=== PATIENT | female | born 1935 | race Caucasian/White ===

== ENCOUNTER → 2016-09-22 | Outpatient (CLI) | payer OTHER ==
[2016-09-22 14:43] LABS: COMPLETE YES; EOS % 3.5 %; HEMATOCRIT 39.8 % (37-47); IG% 0.5 %; LYMPH % 30.9 %; LYMPH ABS # 1.92 K/uL (1.2-3.4); MEAN CELL VOLUME 86.9 fL (80-100); MEAN CORPUSCULAR HEMOGLOBIN 28.2 pg (25-34); MEAN CORPUSCULAR HGB CONC 32.4 g/dl (32-36); MEAN PLATELET VOLUME 11.8 fL (7.4-10.4); MONO % 11.1 %; PLATELET COUNT 167 K/uL (130-400); RED BLOOD COUNT 4.58 M/uL (4.2-5.4); WHITE BLOOD COUNT 6.22 K/uL (4.8-10.8)
[2016-09-22 15:48] LABS: ESTIMATED AVERAGE GLUCOSE 151 mg/dl; HA1C FLAG Normal (Normal)
[2016-09-22 16:38] LABS: ALB/GLOB RATIO 1.2 (0.9-2); ALKALINE PHOSPHATASE 88 U/L (45-117); ALT/SGPT 20 U/L (12-78); AST/SGOT 14 U/L (15-37); BLOOD UREA NITROGEN 15 mg/dl (7-18); BUN/CREATININE RATIO 20.1 (10-20); CALCIUM 9.1 mg/dl (8.5-10.1); CARBON DIOXIDE 28 mmol/L (21-32); CHLORIDE 110 mmol/L (98-107); CHOLESTEROL 119 mg/dl (0-200); CHOLESTEROL/HDL RATIO 2.4; CREATININE 0.73 mg/dl (0.60-1.20); GLUCOSE 142 mg/dl (70-99); HDL CHOLESTEROL 49 mg/dl; LDL CHOLESTEROL CALCULATED 60 mg/dl; POTASSIUM 4.4 mmol/L (3.5-5.1); SODIUM 144 mmol/L (136-145); TRIGLYCERIDES 50 mg/dl (0-150); VERY LOW DENSITY LIPOPROT CALC 10 mg/dl
== END | disposition home or self-care (01) ==
LOC: C.LABSPEC 14:10
PROVIDERS: ATTEND Family Medicine
DX: E11.9 Type 2 diabetes mellitus without complications (principal); I10 Essential (primary) hypertension; E78.2 Mixed hyperlipidemia

== ENCOUNTER → 2016-12-22 | Outpatient (CLI) | payer OTHER ==
[2016-12-22 13:14] LABS: COMPLETE YES; EOS % 3.5 %; IG% 0.2 %; LYMPH % 30.6 %; LYMPH ABS # 1.91 K/uL (1.2-3.4); MEAN CELL VOLUME 86.9 fL (80-100); MEAN CORPUSCULAR HEMOGLOBIN 28.6 pg (25-34); MEAN CORPUSCULAR HGB CONC 32.9 g/dl (32-36); MEAN PLATELET VOLUME 11.7 fL (7.4-10.4); MONO % 9.8 %; NEUT % 55.9 %; PLATELET COUNT 157 K/uL (130-400); RED BLOOD COUNT 4.72 M/uL (4.2-5.4); WHITE BLOOD COUNT 6.25 K/uL (4.8-10.8)
[2016-12-22 13:26] LABS: ALT/SGPT 21 U/L (12-78); AST/SGOT 17 U/L (15-37); BLOOD UREA NITROGEN 18 mg/dl (7-18); BUN/CREATININE RATIO 24.2 (10-20); CALCIUM 9.2 mg/dl (8.5-10.1); CARBON DIOXIDE 29 mmol/L (21-32); CHLORIDE 110 mmol/L (98-107); CREATININE 0.76 mg/dl (0.60-1.20); GLUCOSE 146 mg/dl (70-99); POTASSIUM 4.3 mmol/L (3.5-5.1); SODIUM 144 mmol/L (136-145)
[2016-12-22 13:28] LABS: ALB/GLOB RATIO 1.1 (0.9-2); ALKALINE PHOSPHATASE 81 U/L (45-117); CHOLESTEROL 113 mg/dl (0-200); CHOLESTEROL/HDL RATIO 2.4; HDL CHOLESTEROL 48 mg/dl; LDL CHOLESTEROL CALCULATED 53 mg/dl; TRIGLYCERIDES 61 mg/dl (0-150); VERY LOW DENSITY LIPOPROT CALC 12 mg/dl
[2016-12-22 13:52] LABS: ESTIMATED AVERAGE GLUCOSE 154 mg/dl; HA1C FLAG Normal (Normal)
== END | disposition home or self-care (01) ==
LOC: C.LABSPEC 12:54
PROVIDERS: ATTEND Family Medicine
DX: E11.9 Type 2 diabetes mellitus without complications (principal); E78.2 Mixed hyperlipidemia; I10 Essential (primary) hypertension

== ENCOUNTER → 2017-03-21 | Outpatient (CLI) | payer OTHER ==
[2017-03-21 14:42] LABS: BASO % 0.2 %; BASO ABS # 0.01 K/uL (0-0.2); COMPLETE YES; EOS % 4.3 %; HEMATOCRIT 40.1 % (37-47); IG% 0.2 %; LYMPH % 32.5 %; LYMPH ABS # 1.73 K/uL (1.2-3.4); MEAN CELL VOLUME 87.6 fL (80-100); MEAN CORPUSCULAR HEMOGLOBIN 28.2 pg (25-34); MEAN CORPUSCULAR HGB CONC 32.2 g/dl (32-36); MEAN PLATELET VOLUME 11.5 fL (7.4-10.4); MONO % 8.8 %; PLATELET COUNT 148 K/uL (130-400); RED BLOOD COUNT 4.58 M/uL (4.2-5.4); WHITE BLOOD COUNT 5.32 K/uL (4.8-10.8)
[2017-03-21 14:53] LABS: ALT/SGPT 18 U/L (12-78); AST/SGOT 12 U/L (15-37); BLOOD UREA NITROGEN 18 mg/dl (7-18); BUN/CREATININE RATIO 22.1 (10-20); CALCIUM 9.3 mg/dl (8.5-10.1); CARBON DIOXIDE 25 mmol/L (21-32); CHLORIDE 111 mmol/L (98-107); GLUCOSE 128 mg/dl (70-99); POTASSIUM 4.1 mmol/L (3.5-5.1); SODIUM 143 mmol/L (136-145)
[2017-03-21 14:55] LABS: ALB/GLOB RATIO 1.1 (0.9-2); ALKALINE PHOSPHATASE 73 U/L (45-117)
[2017-03-22 06:38] LABS: ESTIMATED AVERAGE GLUCOSE 154 mg/dl; HA1C FLAG Normal (Normal)
== END | disposition home or self-care (01) ==
LOC: C.LABSPEC 13:56
PROVIDERS: ATTEND Family Medicine
DX: E11.9 Type 2 diabetes mellitus without complications (principal); E78.2 Mixed hyperlipidemia; I10 Essential (primary) hypertension

== ENCOUNTER → 2017-04-28 | Outpatient (CLI) | payer OTHER ==
[2017-04-28 14:04] LABS: COMPLETE YES; EOS % 3.7 %; HEMATOCRIT 39.2 % (37-47); IG% 0.2 %; LYMPH % 30.8 %; LYMPH ABS # 1.73 K/uL (1.2-3.4); MEAN CELL VOLUME 87.3 fL (80-100); MEAN CORPUSCULAR HEMOGLOBIN 28.7 pg (25-34); MEAN CORPUSCULAR HGB CONC 32.9 g/dl (32-36); MEAN PLATELET VOLUME 11.7 fL (7.4-10.4); MONO % 10.5 %; NEUT % 54.8 %; PLATELET COUNT 142 K/uL (130-400); RED BLOOD COUNT 4.49 M/uL (4.2-5.4); WHITE BLOOD COUNT 5.62 K/uL (4.8-10.8)
[2017-04-28 14:14] LABS: ESTIMATED AVERAGE GLUCOSE 154 mg/dl; HA1C FLAG Normal (Normal)
[2017-04-28 14:29] LABS: ALT/SGPT 21 U/L (12-78); AST/SGOT 13 U/L (15-37); BLOOD UREA NITROGEN 20 mg/dl (7-18); BUN/CREATININE RATIO 23.3 (10-20); CALCIUM 9.6 mg/dl (8.5-10.1); CARBON DIOXIDE 30 mmol/L (21-32); CHLORIDE 106 mmol/L (98-107); CREATININE 0.85 mg/dl (0.60-1.20); GLUCOSE 149 mg/dl (70-99); POTASSIUM 4.2 mmol/L (3.5-5.1); SODIUM 141 mmol/L (136-145)
[2017-04-28 14:31] LABS: ALB/GLOB RATIO 1.1 (0.9-2); ALKALINE PHOSPHATASE 85 U/L (45-117)
== END | disposition home or self-care (01) ==
LOC: C.LABSPEC 13:34
PROVIDERS: ATTEND Family Medicine
DX: E11.9 Type 2 diabetes mellitus without complications (principal)

== ENCOUNTER → 2017-05-09 | Outpatient (CLI) | payer OTHER ==
[2017-05-09 18:24] LABS: ALT/SGPT 20 U/L (12-78); BLOOD UREA NITROGEN 19 mg/dl (7-18); CALCIUM 9.5 mg/dl (8.5-10.1); CARBON DIOXIDE 29 mmol/L (21-32); CHLORIDE 109 mmol/L (98-107); CREATININE 0.84 mg/dl (0.60-1.20); GLUCOSE 75 mg/dl (70-99); POTASSIUM 3.7 mmol/L (3.5-5.1); SODIUM 143 mmol/L (136-145)
[2017-05-09 18:30] LABS: ALB/GLOB RATIO 1.1 (0.9-2); ALKALINE PHOSPHATASE 90 U/L (45-117); AST/SGOT 17 U/L (15-37)
== END | disposition home or self-care (01) ==
LOC: C.LABSPEC 17:44
PROVIDERS: ATTEND Family Medicine
DX: R60.0 Localized edema (principal)

== ENCOUNTER → 2017-05-12 | Outpatient (CLI) | payer OTHER ==
--- NOTE | 2017-05-13 08:10 | ECHOCARDIOGRAM REPORT ---
*NOTICE TO RECEIVING REPUBLICAN AGENCY This information is strictly Confidential and protected under [place] law. [place] law prohibits you from making any further disclosure of this information unless further disclosure is expressly permitted by the written consent of the person to whom it pertains or is authorized by law. A general authorization for the release of medical or other information is not sufficient for this purpose. Hospital accepts no responsibility if the information is made available to any other person, INCLUDING THE PATIENT. Interpretation Summary * Name: MING YADAV Study Date: 05/12/2017 12:24 PM BP: 149/69 mmHg * Patient Location: [facility] HR: 56 * : 1935 (M/d/yyyy) Gender: Female Height: 68 in * Age: 82 yrs Ethnicity: [place] Weight: 179 lb * Ordering Physician: Isrrael Bolivar * Referring Physician: Isrrael Bolivar (BALA [id number]) * Performed By: Neena Zapien * * Reason For Study: SOB, LOCALIZED EDEMA * BSA: 1.9 m2 * -- Conclusions -- * 1. Mildly dilated left ventricle with normal systolic function. EF 55-60%. Akinesis of the inferior base. Inferolateral wall appears hypokinetic to akinetic. Mild concentric left ventricular hypertrophy. Type 1 diastolic dysfunction. * 2. The left atrium is moderately dilated. * 3. Sclerotic aortic valve without significant stenosis. * 4. Normal estimated right ventricular systolic pressure; 20 mmHg. * 5. No prior study available for comparison. Procedure Details * A complete two-dimensional transthoracic echocardiogram was performed (2D, M-mode, Doppler and color flow Doppler). * The study was technically difficult. Left Ventricle * Mildly dilated left ventricle with normal systolic function. EF 55-60%. Akinesis of the inferior base. Inferolateral wall appears hypokinetic to akinetic. Mild concentric left ventricular hypertrophy. Type 1 diastolic dysfunction. Right Ventricle * There is a pacemaker lead in the right ventricle. * The right ventricle is normal in size and function. * The right ventricular systolic function is normal as assessed by tricuspid annular plane systolic excursion (TAPSE) (normal >1.5 cm). Atria * The left atrium is moderately dilated. * Right atrial size is normal. * There is no evidence of atrial septal defect, but resolution does not allow assessment for a patent foramen ovale. Mitral Valve * There is mild mitral annular calcification. * There is no mitral valve stenosis. * Significant mitral regurgitation is absent. Tricuspid Valve * The tricuspid valve is not well visualized, but is grossly normal. * There is no tricuspid stenosis. * There is mild tricuspid regurgitation. Aortic Valve * Sclerotic aortic valve without significant stenosis. * No hemodynamically significant valvular aortic stenosis. * No aortic regurgitation is present. Pulmonic Valve * The pulmonary valve is inadequately visualized, but the Doppler data is adequate for interpretation. * There is no pulmonic valvular stenosis. * Trace pulmonic valvular regurgitation. Great Vessels * The aortic root is normal size. Pericardium/Pleural * There is no pericardial effusion. Great Vessels * Normal inferior vena cava size and collapsability with sniff indicates a normal right atrial pressure of 3 mmHg MMode 2D Measurements and Calculations IVSd 1.3 cm IVSs 1.5 cm LVIDd 5.3 cm LVIDs 3.7 cm LVPWd 1.2 cm LVPWs 1.5 cm IVS/LVPW 1.1 FS 30.1 % EDV(Teich) 133.7 ml ESV(Teich) 57.5 ml EF(Teich) 57.0 % EDV(cubed) 146.6 ml ESV(cubed) 50.0 ml EF(cubed) 65.9 % % IVS thick 12.6 % % LVPW thick 18.1 % LV mass(C)d 278.4 grams LV mass(C)dI 142.8 grams/m\S\2 LV mass(C)s 202.0 grams LV mass(C)sI 103.6 grams/m\S\2 SV(Teich) 76.2 ml SI(Teich) 39.1 ml/m\S\2 SV(cubed) 96.6 ml SI(cubed) 49.5 ml/m\S\2 Ao root diam 3.0 cm Ao root area 7.2 cm\S\2 ACS 1.1 cm LA dimension 4.7 cm asc Aorta Diam 3.3 cm LA/Ao 1.6 LVOT diam 2.1 cm LVOT area 3.3 cm\S\2 LVAd ap4 37.4 cm\S\2 LVLd ap4 8.2 cm EDV(MOD-sp4) 138.6 ml EDV(sp4-el) 145.3 ml LVAs ap4 21.1 cm\S\2 LVLs ap4 6.7 cm ESV(MOD-sp4) 57.1 ml ESV(sp4-el) 57.1 ml EF(MOD-sp4) 58.8 % EF(sp4-el) 60.7 % SV(MOD-sp4) 81.4 ml SI(MOD-sp4) 41.8 ml/m\S\2 SV(sp4-el) 88.2 ml SI(sp4-el) 45.2 ml/m\S\2 Doppler Measurements and Calculations MV E max сергей 75.0 cm/sec MV A max сергей 79.3 cm/sec MV E/A 0.95 MV dec time 0.33 sec Ao V2 max 179.8 cm/sec Ao max PG 12.9 mmHg Ao max PG (full) 8.6 mmHg Ao V2 mean 118.7 cm/sec Ao mean PG 6.7 mmHg Ao mean PG (full) 4.7 mmHg Ao V2 VTI 38.5 cm FABIENNE(I,A) 2.2 cm\S\2 FABIENNE(I,D) 2.2 cm\S\2 FABIENNE(V,A) 1.9 cm\S\2 FABIENNE(V,D) 1.9 cm\S\2 LV V1 max PG 4.4 mmHg LV V1 mean PG 2.1 mmHg LV V1 max 104.6 cm/sec LV V1 mean 65.4 cm/sec LV V1 VTI 25.1 cm SV(Ao) 277.3 ml SI(Ao) 142.2 ml/m\S\2 SV(LVOT) 83.9 ml SI(LVOT) 43.1 ml/m\S\2 PA V2 max 74.4 cm/sec PA max PG 2.2 mmHg TR max сергей 202.4 cm/sec RVSP(TR) 19.5 mmHg RAP systole 3.0 mmHg
== END | disposition home or self-care (01) ==
LOC: C.CPL 12:07
PROVIDERS: ATTEND Family Medicine
DX: R60.0 Localized edema (principal); R06.02 Shortness of breath

== ENCOUNTER → 2017-12-01 | Outpatient (CLI) | payer OTHER ==
[2017-12-01 18:41] LABS: BASO % 0.1 %; BASO ABS # 0.01 K/uL (0-0.2); EOS % 0.3 %; EOS ABS # 0.03 K/uL (0-0.5); HEMOGLOBIN 13.7 g/dL (12.0-16.0); IG# 0.02 K/uL (0.00-0.02); LYMPH % 10.3 %; LYMPH ABS # 1.08 K/uL (1.2-3.4); MEAN CELL VOLUME 86.6 fL (80-100); MEAN CORPUSCULAR HEMOGLOBIN 28.2 pg (25-34); MEAN CORPUSCULAR HGB CONC 32.6 g/dl (32-36); MONO % 8.8 %; MONO ABS # 0.93 K/uL (0.11-0.59); NEUT % 80.3 %; NEUT ABS # 8.44 K/uL (1.4-6.5); PLATELET COUNT 258 K/uL (130-400); RED CELL DISTRIBUTION WIDTH CV 13.4 % (11.5-14.5); RED CELL DISTRIBUTION WIDTH SD 42.7 fL (36.4-46.3); WHITE BLOOD COUNT 10.51 K/uL (4.8-10.8)
[2017-12-01 18:48] LABS: ALBUMIN 3.4 gm/dl (3.4-5.0); ALT/SGPT 17 U/L (12-78); AST/SGOT 12 U/L (15-37); BLOOD UREA NITROGEN 16 mg/dl (7-18); CALCIUM 9.8 mg/dl (8.5-10.1); CARBON DIOXIDE 26 mmol/L (21-32); CREATININE 0.86 mg/dl (0.60-1.20); GLUCOSE 186 mg/dl (70-99); SODIUM 138 mmol/L (136-145)
[2017-12-01 18:50] LABS: ALKALINE PHOSPHATASE 110 U/L (45-117); TOTAL PROTEIN 7.1 gm/dl (6.4-8.2)
[2017-12-01 19:54] LABS: INFLUENZA B ANTIGEN Neg for Influ B (NEG)
== END | disposition home or self-care (01) ==
LOC: C.LABSPEC 18:15
PROVIDERS: ATTEND Family Medicine
DX: R05 Cough (principal)

== ENCOUNTER → 2018-01-30 | Outpatient (CLI) | payer OTHER ==
[2018-01-30 13:34] LABS: BASO % 0.1 %; BASO ABS # 0.01 K/uL (0-0.2); EOS ABS # 0.28 K/uL (0-0.5); HEMATOCRIT 40.7 % (37-47); HEMOGLOBIN 13.3 g/dL (12.0-16.0); IG# 0.02 K/uL (0.00-0.02); LYMPH ABS # 1.87 K/uL (1.2-3.4); MEAN CELL VOLUME 86.8 fL (80-100); MEAN CORPUSCULAR HEMOGLOBIN 28.4 pg (25-34); MEAN CORPUSCULAR HGB CONC 32.7 g/dl (32-36); MEAN PLATELET VOLUME 11.7 fL (7.4-10.4); MONO % 8.4 %; MONO ABS # 0.58 K/uL (0.11-0.59); NEUT % 60.2 %; NEUT ABS # 4.16 K/uL (1.4-6.5); PLATELET COUNT 184 K/uL (130-400); RED CELL DISTRIBUTION WIDTH CV 14.1 % (11.5-14.5); RED CELL DISTRIBUTION WIDTH SD 44.5 fL (36.4-46.3); WHITE BLOOD COUNT 6.92 K/uL (4.8-10.8)
[2018-01-30 14:25] LABS: HEMOGLOBIN A1C 7.2 % (4.5-5.6)
[2018-01-30 19:01] LABS: BLOOD UREA NITROGEN 24 mg/dl (7-18); GLUCOSE 109 mg/dl (70-99)
[2018-01-30 19:02] LABS: ALBUMIN 3.5 gm/dl (3.4-5.0); ALKALINE PHOSPHATASE 84 U/L (45-117); ALT/SGPT 16 U/L (12-78); AST/SGOT 14 U/L (15-37); CALCIUM 9.1 mg/dl (8.5-10.1); CARBON DIOXIDE 31 mmol/L (21-32); CHOLESTEROL 129 mg/dl (0-200); LDL CHOLESTEROL CALCULATED 61 mg/dl; POTASSIUM 3.8 mmol/L (3.5-5.1); SODIUM 144 mmol/L (136-145); TOTAL PROTEIN 6.8 gm/dl (6.4-8.2)
== END | disposition home or self-care (01) ==
LOC: C.LABSPEC 12:39
PROVIDERS: ATTEND Family Medicine
DX: E11.9 Type 2 diabetes mellitus without complications (principal); E78.2 Mixed hyperlipidemia

== ENCOUNTER → 2018-05-02 | Outpatient (CLI) | payer OTHER ==
[2018-05-02 13:33] LABS: EOS % 2.9 %; EOS ABS # 0.21 K/uL (0-0.5); HEMATOCRIT 41.3 % (37-47); HEMOGLOBIN 13.4 g/dL (12.0-16.0); IG# 0.01 K/uL (0.00-0.02); LYMPH % 25.6 %; LYMPH ABS # 1.83 K/uL (1.2-3.4); MEAN CELL VOLUME 87.3 fL (80-100); MEAN CORPUSCULAR HEMOGLOBIN 28.3 pg (25-34); MEAN CORPUSCULAR HGB CONC 32.4 g/dl (32-36); MEAN PLATELET VOLUME 11.5 fL (7.4-10.4); MONO % 7.7 %; MONO ABS # 0.55 K/uL (0.11-0.59); NEUT % 63.7 %; NEUT ABS # 4.54 K/uL (1.4-6.5); PLATELET COUNT 147 K/uL (130-400); RED CELL DISTRIBUTION WIDTH CV 14.2 % (11.5-14.5); RED CELL DISTRIBUTION WIDTH SD 45.5 fL (36.4-46.3); WHITE BLOOD COUNT 7.14 K/uL (4.8-10.8)
[2018-05-02 13:46] LABS: HEMOGLOBIN A1C 7.1 % (4.5-5.6)
[2018-05-02 13:55] LABS: ALBUMIN 3.4 gm/dl (3.4-5.0); ALKALINE PHOSPHATASE 76 U/L (45-117); ALT/SGPT 18 U/L (12-78); AST/SGOT 16 U/L (15-37); BLOOD UREA NITROGEN 18 mg/dl (7-18); CALCIUM 9.3 mg/dl (8.5-10.1); CARBON DIOXIDE 26 mmol/L (21-32); CHOLESTEROL 95 mg/dl (0-200); CREATININE 0.79 mg/dl (0.60-1.20); GLUCOSE 151 mg/dl (70-99); LDL CHOLESTEROL CALCULATED 40 mg/dl; POTASSIUM 4.1 mmol/L (3.5-5.1); SODIUM 143 mmol/L (136-145); TOTAL PROTEIN 6.7 gm/dl (6.4-8.2)
== END | disposition home or self-care (01) ==
LOC: C.LABSPEC 13:05
PROVIDERS: ATTEND Family Medicine
DX: E11.9 Type 2 diabetes mellitus without complications (principal); I10 Essential (primary) hypertension; E78.2 Mixed hyperlipidemia

== ENCOUNTER 2023-07-31 19:31 | Inpatient (IN) ==
[2023-07-31 20:22] LABS: Basophils # (auto) 0.01 K/uL (0.00-0.20); Basophils % (auto) 0.1 %; Eosinophils # (auto) 0.04 K/uL (0.00-0.50); Eosinophils % (auto) 0.6 %; Hematocrit (blood only) 45.3 % (37.0-47.0); Hemoglobin 13.9 g/dl (12.0-16.0); Immature Granulocytes # (auto) 0.01 K/uL (0.01-0.20); Immature Granulocytes % (auto) 0.1 %; Lymphocytes # (auto) 1.41 K/uL (1.20-3.40); Lymphocytes % (auto) 20.8 %; Mean Corpuscular Hemoglobin 26.1 pg (25.0-34.0); Mean Corpuscular Hgb Conc 30.7 g/dL (32.0-36.0); Mean Corpuscular Volume 85.2 fL (80.0-100.0); Mean Platelet Volume 12.7 fL (9.4-12.4); Monocytes # (auto) 0.71 K/uL (0.11-0.59); Monocytes % (auto) 10.5 %; Neutrophils # (auto) 4.59 K/uL (1.40-6.50); Neutrophils % (auto) 67.9 %; Platelet Count 151 K/uL (130-400); RDW Coefficient of Variation 16.2 % (11.5-14.5); RDW Standard Deviation 49.5 fL (36.4-46.3); Red Blood Count 5.32 M/uL (4.20-5.40); White Blood Count 6.77 K/ul (4.8-10.8)
[2023-07-31 20:37] LABS: Alanine Aminotransferase 11 U/L (7-52); Albumin Globulin Ratio 1.4 (0.9-2); Alkaline Phosphatase 70 U/L (34-104); Anion Gap 7 (3-11); Aspartate Aminotransferase 15 U/L (13-39); BUN Creatinine Ratio 17.2 (10-20); Bilirubin,Total 0.8 mg/dl (0.2-1.0); Blood Urea Nitrogen 20 mg/dl (6-23); Calcium 9.6 mg/dl (8.6-10.3); Carbon Dioxide 31 mmol/L (21-32); Chloride 100 mmol/L (98-107); Est GFR (African American) 49.4 ml/min; Est GFR (Non-African American) 42.6 ml/min; Globulin 2.8 gm/dl (2.5-4.0); Glucose 216 mg/dl (70-99(Fasting)); Sodium 138 mmol/L (136-145); Total Protein 6.8 gm/dl (6.0-8.3); Troponin I High Sensitivity 16.8 pg/ml (0-14)
[2023-07-31 20:47] LABS: INR 1.2 (0.9-1.1); Influenza A virus by PCR Negative (Neg); Influenza B virus by PCR Negative (Neg); Partial Thromboplastin Time 29.6 Seconds (21.0-31.0); Prothrombin Time 13.4 Seconds (9.0-12.0); RSV by PCR Negative (Neg); SARS CoV2 RNA(COVID-19) Ceph NEGATIVE (Negative)
[2023-07-31] MEDS ORDERED: KETOROLAC TROMETHAMINE 15 MG/ML VIAL IV ONE (23:25)
[2023-07-31] MEDS ORDERED: OPTIRAY 320 500ml IV ONE (23:54)
--- NOTE | 2023-08-01 01:19 | Emergency Department Note ---
Impression & Plan CHF (congestive heart failure), Pleural effusion ED Provider Note NAME: MING YADAV AGE: 88 SEX: F : 1935 ARRIVES VIA: Walk-In INFORMANT: Patient, ED PROVIDER(S): Raleigh Fried MD CHIEF COMPLAINT: Chest pain HPI: This is an 88-year-old female with history of CAD, pacemaker placement presenting for chest pain. Patient states that she became chest pain Tuesday. Is left-sided, sharp sensation, constant. Goes into her left shoulder. She has was a [place] this Tuesday, 2 days ago was discharged home after a negative EKG, blood work and chest x-ray. Patient then presented here due to persistent pain. Patient notes some slight shortness of breath. Otherwise no nausea or vomiting. No fevers or chills. ROS: See above HPI for pertinent positives & negatives. A total of 10 systems reviewed and were otherwise negative. PAST MEDICAL HISTORY: See Below PAST SURGICAL HISTORY: See Below FAMILY HISTORY: See Below SOCIAL HISTORY: See Below HOME MEDICATIONS: See Below ALLERGIES: See Below VITALS: See Below PHYSICAL EXAMINATION: General: resting comfortably in no acute distress Head: Normocephalic and atraumatic Eyes: Normal inspection, extraocular muscles intact, no conjunctival pallor Ear, nose, throat: Normal external exam Neck: Normal range of motion Respiratory: Patient is in no respiratory distress, lungs clear to auscultation bilaterally Cardiovascular: RRR without murmur appreciated GI: soft, nontender, no guarding or rebound Neuro: The patient awake and alert, appropriately conversive,no focal decifits Skin: Warm, dry, and intact MEDICAL DECISION MAKING: This is an 88-year-old female with history of CAD, pacemaker, A-fib presenting for chest pain. Left-sided chest pain, constant, possibly pleuritic, sharp. Will get ACS versus PE rule out. Patient's troponin is already elevated at triage. Patient has noted persistent chest pains, somewhat pleuritic, and she is borderline hypoxic will do to rule out PE with CTA chest. We will add on BNP as well. Patient CT chest reveals a large pleural effusion which could explain patient's hypoxia. Will admit for large pleural effusion well as further chest pain work- up. Patient did take her aspirin earlier this afternoon. Triage Nursing notes reviewed. Prior medical records reviewed Vital Signs: reviewed and remarkable for no significant abnormalities Differential diagnosis: PE, ACS, CHF, dissection ER treatment provided: See below Diagnostics interpreted by me: ECG: ECG independently interpreted by me with atrial fibrillation, rate of 94, normal axis, normal QRS, normal QTc, no ST segment elevations consistent with STEMI criteria Cardiac Monitoring: An order was placed for continuous cardiac monitoring. The monitor shows a rate of 82 with atrial fibrillation rhythm Laboratory studies: As stated above and show below. Imaging studies: See below. Radiographic imaging was reviewed by myself Consultation(s): None ED COURSE: Procedures: None PDMP:reviewed and no issues Critical Care: None Past Med/Surg History Social History Smoking Status: Never smoker Hx Alcohol Use: No Hx Substance Use: No Preferred Language: Frisian Communication Ability: Effective Beliefs That Will Affect Care: None Current Living Situation: Alone Feels Safe at Home: Yes Assistive Devices: Denture - Upper, Denture - Lower and Glasses Allergies Allergies Allergy/AdvReac Type Severity Reaction Status Date / Time No Known Allergies Allergy Verified 07/31/23 23:42 Home Meds Home Medications Medication Instructions Recorded Confirmed apixaban 5 mg tablet (Eliquis) 5 mg BID 03/18/20 07/31/23 atorvastatin 40 mg tablet (Lipitor) 40 mg PO HS 03/18/20 07/31/23 glipizide 2.5 mg tablet, extended 2.5 mg PO BID 03/18/20 07/31/23 release 24 hr nitroglycerin 0.4 mg sublingual 0.4 mg sublingual DIRECTED PRN 03/18/20 07/31/23 tablet (Nitrostat) Chest Pain torsemide 20 mg tablet 40 mg PO DAILY 03/18/20 07/31/23 alendronate 70 mg tablet 70 mg PO WK 07/31/23 07/31/23 colchicine 0.6 mg tablet 0.6 mg PO DAILY 07/31/23 07/31/23 empagliflozin 25 mg tablet 25 mg PO DAILY 07/31/23 07/31/23 (Jardiance) metoprolol succinate 25 mg 12.5 mg PO DAILY 07/31/23 07/31/23 tablet,extended release 24 hr omeprazole 20 mg capsule,delayed 20 mg PO DAILY 07/31/23 07/31/23 release pregabalin 150 mg capsule 150 mg PO BID 07/31/23 07/31/23 Results & Data (ED) Vital Signs Vital Signs - 24 hr 07/31/23 19:35 07/31/23 22:31 07/31/23 22:31 Temperature 36.8 C Temperature Source Temporal Artery Scan Pulse Rate 97 H Pulse Rate [Apical] 99 H Pulse Rhythm Regular Pulse Strength Normal Respiratory Rate 20 18 Respiratory Effort / Characteristics Non-Labored Spontaneous Respiratory Depth Normal Normal Blood Pressure 107/73 Blood Pressure [Right Arm] 124/75 Blood Pressure Mean 84 Blood Pressure Mean [Right Arm] 91 Blood Pressure Position Right Lateral Pulse Oximetry 94 92 Oxygen Delivery Method Room Air Room Air Room Air Oxygen Flow Rate Sepsis Recent Fever Within 48 Hours No Sepsis New/Unexplained Change in Mental Status N/A Sepsis Action Taken by Nursing No Action Required 07/31/23 22:32 07/31/23 22:33 07/31/23 22:39 Temperature Temperature Source Pulse Rate 97 H Pulse Rate [Apical] Pulse Rhythm Pulse Strength Respiratory Rate Respiratory Effort / Characteristics Respiratory Depth Blood Pressure Blood Pressure [Right Arm] Blood Pressure Mean Blood Pressure Mean [Right Arm] Blood Pressure Position Pulse Oximetry 92 Oxygen Delivery Method Room Air Room Air Oxygen Flow Rate Sepsis Recent Fever Within 48 Hours Sepsis New/Unexplained Change in Mental Status Sepsis Action Taken by Nursing 07/31/23 23:30 07/31/23 23:30 07/31/23 23:53 Temperature Temperature Source Pulse Rate 91 H 96 H Pulse Rate [Apical] Pulse Rhythm Pulse Strength Respiratory Rate 26 H 26 H Respiratory Effort / Characteristics Respiratory Depth Blood Pressure 108/79 Blood Pressure [Right Arm] Blood Pressure Mean 93 Blood Pressure Mean [Right Arm] Blood Pressure Position Pulse Oximetry 91 86 L Oxygen Delivery Method Room Air Room Air Oxygen Flow Rate Sepsis Recent Fever Within 48 Hours Sepsis New/Unexplained Change in Mental Status Sepsis Action Taken by Nursing 07/31/23 23:53 07/31/23 23:56 08/01/23 00:00 Temperature Temperature Source Pulse Rate Pulse Rate [Apical] Pulse Rhythm Pulse Strength Respiratory Rate Respiratory Effort / Characteristics Respiratory Depth Blood Pressure 130/93 130/105 H Blood Pressure [Right Arm] Blood Pressure Mean 102 108 Blood Pressure Mean [Right Arm] Blood Pressure Position Pulse Oximetry 95 Oxygen Delivery Method Nasal Cannula Oxygen Flow Rate 2 Sepsis Recent Fever Within 48 Hours Sepsis New/Unexplained Change in Mental Status Sepsis Action Taken by Nursing 08/01/23 00:30 08/01/23 00:30 08/01/23 01:00 Temperature Temperature Source Pulse Rate 95 H 91 H Pulse Rate [Apical] Pulse Rhythm Pulse Strength Respiratory Rate 23 23 Respiratory Effort / Characteristics Respiratory Depth Blood Pressure 109/81 Blood Pressure [Right Arm] Blood Pressure Mean 87 Blood Pressure Mean [Right Arm] Blood Pressure Position Pulse Oximetry 96 96 Oxygen Delivery Method Nasal Cannula Oxygen Flow Rate 2 Sepsis Recent Fever Within 48 Hours Sepsis New/Unexplained Change in Mental Status Sepsis Action Taken by Nursing 08/01/23 01:00 08/01/23 01:29 08/01/23 01:30 Temperature Temperature Source Pulse Rate 87 Pulse Rate [Apical] Pulse Rhythm Pulse Strength Respiratory Rate 19 Respiratory Effort / Characteristics Respiratory Depth Blood Pressure 117/61 130/61 Blood Pressure [Right Arm] Blood Pressure Mean 80 103 Blood Pressure Mean [Right Arm] Blood Pressure Position Pulse Oximetry 98 Oxygen Delivery Method Nasal Cannula Oxygen Flow Rate 2 Sepsis Recent Fever Within 48 Hours Sepsis New/Unexplained Change in Mental Status Sepsis Action Taken by Nursing 08/01/23 01:35 08/01/23 02:00 08/01/23 02:00 Temperature Temperature Source Pulse Rate 99 H 90 Pulse Rate [Apical] Pulse Rhythm Pulse Strength Respiratory Rate 22 24 Respiratory Effort / Characteristics Respiratory Depth Blood Pressure 112/71 Blood Pressure [Right Arm] Blood Pressure Mean 76 Blood Pressure Mean [Right Arm] Blood Pressure Position Pulse Oximetry 96 Oxygen Delivery Method Nasal Cannula Oxygen Flow Rate 2 Sepsis Recent Fever Within 48 Hours Sepsis New/Unexplained Change in Mental Status Sepsis Action Taken by Nursing 08/01/23 02:30 08/01/23 02:30 08/01/23 02:44 Temperature Temperature Source Pulse Rate 90 92 H Pulse Rate [Apical] Pulse Rhythm Pulse Strength Respiratory Rate 26 H Respiratory Effort / Characteristics Respiratory Depth Blood Pressure 117/85 Blood Pressure [Right Arm] Blood Pressure Mean 95 Blood Pressure Mean [Right Arm] Blood Pressure Position Pulse Oximetry 96 Oxygen Delivery Method Nasal Cannula Oxygen Flow Rate 2 Sepsis Recent Fever Within 48 Hours Sepsis New/Unexplained Change in Mental Status Sepsis Action Taken by Nursing 08/01/23 03:00 08/01/23 03:00 Temperature Temperature Source Pulse Rate 90 Pulse Rate [Apical] Pulse Rhythm Pulse Strength Respiratory Rate 24 Respiratory Effort / Characteristics Respiratory Depth Blood Pressure 111/87 Blood Pressure [Right Arm] Blood Pressure Mean 98 Blood Pressure Mean [Right Arm] Blood Pressure Position Pulse Oximetry 96 Oxygen Delivery Method Nasal Cannula Oxygen Flow Rate 2 Sepsis Recent Fever Within 48 Hours Sepsis New/Unexplained Change in Mental Status Sepsis Action Taken by Nursing Laboratory Data 08/01/23 06:41 08/01/23 06:41 Lab Results 07/31/23 07/31/23 Range/Units 19:56 23:35 WBC 6.77 (4.8-10.8) K/ul RBC 5.32 (4.20-5.40) M/uL Hgb 13.9 (12.0-16.0) g/dl Hct 45.3 (37.0-47.0) % MCV 85.2 (80.0-100.0) fL MCH 26.1 (25.0-34.0) pg MCHC 30.7 L (32.0-36.0) g/dL RDW Std Deviation 49.5 H (36.4-46.3) fL RDW Coeff of Jonathan 16.2 H (11.5-14.5) % Plt Count 151 (130-400) K/uL MPV 12.7 H (9.4-12.4) fL Immature Gran % (Auto) 0.1 % Neut % (Auto) 67.9 % Lymph % (Auto) 20.8 % [place] % (Auto) 10.5 % Eos % (Auto) 0.6 % Baso % (Auto) 0.1 % Neut # (Auto) 4.59 (1.40-6.50) K/uL Lymph # (Auto) 1.41 (1.20-3.40) K/uL [place] # (Auto) 0.71 H (0.11-0.59) K/uL Eos # (Auto) 0.04 (0.00-0.50) K/uL Baso # (Auto) 0.01 (0.00-0.20) K/uL Immature Gran # (Auto) 0.01 (0.01-0.20) K/uL PT 13.4 H (9.0-12.0) Seconds INR 1.2 H (0.9-1.1) APTT 29.6 (21.0-31.0) Seconds PTT Ratio 1.0 Sodium 138 (136-145) mmol/L Potassium 4.0 (3.5-5.1) mmol/L Chloride 100 (98-107) mmol/L Carbon Dioxide 31 (21-32) mmol/L Anion Gap 7 (3-11) BUN 20 (6-23) mg/dl Creatinine 1.16 (0.6-1.2) mg/dl Est Cr Clr Drug Dosing Not Reportable Est GFR ( Amer) 49.4 ml/min Est GFR (Non-Af Amer) 42.6 ml/min BUN/Creatinine Ratio 17.2 (10-20) Glucose 216 H (70-99(Fasting)) mg/dl Calcium 9.6 (8.6-10.3) mg/dl Total Bilirubin 0.8 (0.2-1.0) mg/dl AST 15 (13-39) U/L ALT 11 (7-52) U/L Alkaline Phosphatase 70 (34-104) U/L Troponin I High Sens 16.8 H (0-14) pg/ml B-Natriuretic Peptide 149 H (0-100) pg/ml Total Protein 6.8 (6.0-8.3) gm/dl Albumin 4.0 (3.4-5.0) gm/dl Globulin 2.8 (2.5-4.0) gm/dl Albumin/Globulin Ratio 1.4 (0.9-2) SARS-CoV-2 (PCR) NEGATIVE (Negative) Influenza Type A (PCR) Negative (Neg) Influenza Type B (PCR) Negative (Neg) RSV (RT-PCR) Negative (Neg) Administered Medications Apixaban (Apixaban 5 Mg Tablet) 5 mg PO BID [facility] Stop: 08/31/23 08:59 Last Admin: 08/01/23 09:34 Dose: 5 mg Documented By: AFUA Colchicine (Colchicine 0.6 Mg Tab) 0.6 mg PO DAILY [facility] Stop: 08/31/23 08:59 Last Admin: 08/01/23 09:35 Dose: 0.6 mg Documented By: AFUA Ceftriaxone Sodium 1,000 mg/ (Dextrose) 50 mls @ 100 mls/hr IV Q24H [facility]; Protocol Stop: 08/08/23 05:59 Last Infusion: 08/01/23 08:44 Dose: Infused Documented By: Admin: 08/01/23 06:51 Dose: 100 mls/hr Documented By: ROMMEL Insulin Aspart (Insulin Aspart Per Unit Charge) 0 units SC ACHS [facility] Stop: 08/31/23 07:29 Last Admin: 08/01/23 10:09 Dose: Not Given Documented By: AFUA Metoprolol Succinate (Metoprolol Succ 25mg Ext Rel Tab) 12.5 mg PO DAILY [facility] Stop: 08/31/23 08:59 Last Admin: 08/01/23 09:35 Dose: 12.5 mg Documented By: AFUA Pantoprazole Sodium (Pantoprazole 40 Mg Tab) 40 mg PO DAILY [facility] Stop: 08/31/23 08:59 Last Admin: 08/01/23 09:34 Dose: 40 mg Documented By: AFUA Pregabalin (Pregabalin 150 Mg Cap) 150 mg PO BID [facility] Stop: 08/31/23 08:59 Last Admin: 08/01/23 11:02 Dose: 150 mg Documented By: AFUA Discontinued Medications Furosemide (Furosemide 40 Mg/4 Ml Vial) 40 mg IV DAILY [facility] Stop: 08/31/23 08:59 Last Admin: 08/01/23 09:35 Dose: 40 mg Documented By: AFUA Ioversol (Optiray 320 500ml) 125 ml IV ONCE ONE Stop: 07/31/23 23:55 Last Admin: 07/31/23 23:54 Dose: 115 ml Documented By: BARBARA Ketorolac Tromethamine (Ketorolac Tromethamine 15 Mg/Ml Vial) 15 mg IV NOW ONE Stop: 07/31/23 23:26 Last Admin: 07/31/23 23:54 Dose: 15 mg Documented By: MICHELLE Imaging Data Radiologist's Impression: Chest X-Ray 07/31/23 19:38 XR chest 1V not portable CLINICAL HISTORY: Chest pain, nonspecific TECHNIQUE: Single frontal radiograph of the chest was obtained. Comparison: None available at the time of this dictation. FINDINGS: Pacemaker defibrillator is seen. Calcified aortic knob is seen. The lungs are clear. No evidence of pleural effusion or pneumothorax. IMPRESSION: No acute chest disease. ACT 112: Negative or not required by law. Electronically signed by: Jerry Salinas M.D. 08/01/2023 8:01 AM Discharge Plan Visit Data Chief Complaint: Chest Pain Stated Complaint: CHEST PAIN - HAS DEFIBRILATOR ED Provider: Raleigh Fried Discharge Problem: CHF (congestive heart failure), Pleural effusion Patient Disposition: Admitted As Inpatient Discharge Instructions Interventions: ED Discharge Assessment Last Done: 08/01/23 05:39
--- NOTE | 2023-08-01 01:33 | CT Scan Report ---
Exam(s): CTA CHEST IV Amt: 115 ml optiray 320 EXAM: CT Angiography Chest With Intravenous Contrast CLINICAL HISTORY: PE. TECHNIQUE: Axial computed tomographic angiography images of the chest with intravenous contrast. CTDI is 43.98 mGy and DLP is 632.65 mGy-cm. Automated exposure control was utilized for the study. A dose lowering technique was utilized adhering to the principles of ALARA. MIP reconstructed images were created and reviewed. COMPARISON: No relevant prior studies available. FINDINGS: Limitations: Evaluation is limited by respiratory artifact and accentuated kyphosis. Pulmonary arteries: Accounting for extensive respiratory artifact, there is no definite evidence for pulmonary embolism. The majority of the distal subsegmental pulmonary artery branches are of nondiagnostic quality. Aorta: No acute findings. No thoracic aortic aneurysm. Lungs: Unremarkable. No mass. No consolidation. Pleural space: Moderate left pleural effusion layering posteriorly, measuring up to approximately 5 cm. No loculation. Curvilinear subsegmental changes noted involving the left lung. There is pleural thickening laterally at the level of the major fissure which extends vertically, measuring up to 1 cm in thickness. No pneumothorax. Heart: Cardiomegaly. Reflux of contrast into the intrahepatic IVC and proximal hepatic veins is noted. Trace pericardial effusion. Bones/joints: No acute osseous abnormality. Prominent chronic anterior wedging from T5-T9 levels, resulting in accentuated kyphosis. Soft tissues: Unremarkable. Lymph nodes: Unremarkable. No enlarged lymph nodes. Tubes, lines and devices: Left subclavian approach single lead defibrillator noted in the region of the right ventricle with the tip external to the right ventricle approximately 1 cm. IMPRESSION: 1. Accounting for extensive respiratory artifact, there is no definite evidence for pulmonary embolism. The majority of the distal subsegmental pulmonary artery branches are of nondiagnostic quality. 2. Cardiomegaly. Reflux of contrast into the intrahepatic IVC and proximal hepatic veins is noted. This is a nonspecific finding and may be related to rate of contrast administration. However, this finding is also seen with right heart dysfunction. 3. Moderate left pleural effusion layering posteriorly, measuring up to approximately 5 cm. No loculation. 4. Subsegmental changes, most notable involving the left lung. No lobar consolidation. No pneumothorax. Electronically signed by: Yovany Blanc MD 08/01/23 01:30 AM
--- NOTE | 2023-08-01 04:56 | History & Physical Report ---
Date of Service August 01, 2023 Assessment & Plan (1) Chest pain: Plan: 88-year-old female with past medical significant for type 2 diabetes, hyperlipidemia, asthma, history of pneumonia, history of V-fib cardiac arrest in November 2010 cardiac arrest s/p single-chamber ICD. Had cardiac catheter no significant CAD seen, history of A-fib, history of chronic diastolic CHF, history of critical limb ischemia of left lower extremity with autologous bypass graft with rest pain, history of hypertension history of Takotsubo cardiomyopathy, history of acute viral pericarditis history of bilateral cellulitis of lower leg, history of acute thoracic back pain who lives alone, ambulates with cane comes with ongoing chest pain for last 4 days Chest pain EKG okay Mild elevation of troponin We will follow serial enzymes Follow echo Monitoring telemetry Keep n.p.o. 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 Mild bilateral wheezing on exam Has lower extremity edema As per epic she is on torsemide 20 mg daily but seems she was prescribed 40 mg daily recently Patient does not know how much dose she takes Placed on IV Lasix 40 mg daily for now Monitor daily weights and I's and O's Follow echo Cardiology consult for further recommendations Diabetes Hold home medications Insulin status scale We will monitor the blood sugar History of V-fib cardiac arrest S/p ICD History of A-fib On metoprolol succinate and Eliquis Hyperlipidemia On statin History of pericarditis On colchicine DVT prophylaxis On Eliquis Disposition Telemetry floor Full code History of Present Illness Chief Complaint: Chest pain Primary Care Provider: Isrrael Bolivar DO 88-year-old female with past medical significant for type 2 diabetes, hyperlipidemia, asthma, history of pneumonia, history of V-fib cardiac arrest in November 2010 s/p single-chamber ICD. Had cardiac catheter no significant CAD seen, history of A-fib, history of chronic diastolic CHF, history of critical limb ischemia of left lower extremity with autologous bypass graft , history of hypertension, history of Takotsubo cardiomyopathy, history of acute viral pericarditis history of bilateral cellulitis of lower leg, history of acute thoracic back pain who lives alone, ambulates with cane comes with ongoing chest pain for last 4 days. Patient says the pain is in the left chest. It was constant pain for last 4 days but now it eased up. She was in [place] [facility] yesterday for chest pain work-up was negative and was discharged comes in because pain is still present. Denies any headache. Vision is okay. No runny nose or sore throat. Has some cough. No fevers. Denies any shortness of breath. But oxygen is 86% room air, currently saturating ok with oxygen supplementation by nasal cannula. Denies nausea vomiting. No abdominal pain. Normal bowel and bladder movements. Hemodynamics stable. Past medical history. As mentioned above Past surgical history. Cardiac cath. ICD plantation. Pericardiocentesis, ca taracts, femoral-popliteal bypass left side , thrombectomy on the left side. Social history. . Lives alone. No smoking. No alcohol. No drug use. Family history. Brother had cancer. Sister had breast and lung cancer. Mother had heart disorder. Father had lung disorder. Allergies Allergy/AdvReac Type Severity Reaction Status Date / Time No Known Allergies Allergy Verified 07/31/23 23:42 Home Medications Medication Instructions Recorded Confirmed Type apixaban 5 mg tablet (Eliquis) 5 mg BID 03/18/20 07/31/23 History atorvastatin 40 mg tablet (Lipitor) 40 mg PO HS 03/18/20 07/31/23 History glipizide 2.5 mg tablet, extended 2.5 mg PO BID 03/18/20 07/31/23 History release 24 hr nitroglycerin 0.4 mg sublingual 0.4 mg sublingual DIRECTED PRN 03/18/20 07/31/23 History tablet (Nitrostat) Chest Pain torsemide 20 mg tablet 40 mg PO DAILY 03/18/20 07/31/23 History alendronate 70 mg tablet 70 mg PO WK 07/31/23 07/31/23 History colchicine 0.6 mg tablet 0.6 mg PO DAILY 07/31/23 07/31/23 History empagliflozin 25 mg tablet 25 mg PO DAILY 07/31/23 07/31/23 History (Jardiance) metoprolol succinate 25 mg 12.5 mg PO DAILY 07/31/23 07/31/23 History tablet,extended release 24 hr omeprazole 20 mg capsule,delayed 20 mg PO DAILY 07/31/23 07/31/23 History release pregabalin 150 mg capsule 150 mg PO BID 07/31/23 07/31/23 History Past Med/Surg History Social History Smoking Status: Never smoker Hx Alcohol Use: No Hx Substance Use: No Preferred Language: Indonesian Communication Ability: Effective Beliefs That Will Affect Care: None Current Living Situation: Alone Feels Safe at Home: Yes Assistive Devices: Denture - Upper, Denture - Lower and Glasses Review of Systems Review of Systems: All systems reviewed & are unremarkable except as noted in HPI & below Physical Exam Physical Exam: General- Not in distress. Head- atraumatic Eyes- PERRL. ENT- oropharynx clear Neck- supple, no JVD. Lungs- clear to auscultation b/l mild wheezing Heart- regular rhythm; no murmur, no gallop. Abdomen- normal bowel sounds, soft, nontender, no distension. Extremities- b/l lower extremity edema seen. superficial ulcer see on right thakur. Neuro- alert, oriented x 3; PERRL,; no facial palsy; no dysarthria; moves extremities Results & Data Results & Data Vital Signs (Past 12 Hours) Vital Signs Temp Pulse Pulse Resp BP BP Pulse Ox 08/01/23 03:00 111/87 08/01/23 03:00 90 24 96 08/01/23 02:44 92 H 08/01/23 02:30 90 26 H 96 08/01/23 02:30 117/85 08/01/23 02:00 90 24 96 08/01/23 02:00 112/71 08/01/23 01:35 99 H 22 08/01/23 01:30 130/61 08/01/23 01:29 87 19 98 08/01/23 01:00 117/61 08/01/23 01:00 91 H 23 96 08/01/23 00:30 109/81 08/01/23 00:30 95 H 23 96 08/01/23 00:00 130/105 H 07/31/23 23:56 95 07/31/23 23:53 130/93 07/31/23 23:53 96 H 26 H 86 L 07/31/23 23:30 91 H 26 H 91 07/31/23 23:30 108/79 07/31/23 22:39 97 H 07/31/23 22:33 92 07/31/23 22:32 07/31/23 22:31 99 H 18 124/75 92 07/31/23 22:31 07/31/23 19:35 36.8 C 97 H 20 107/73 94 O2 Del Method O2 Flow Rate 08/01/23 03:00 08/01/23 03:00 Nasal Cannula 2 08/01/23 02:44 08/01/23 02:30 Nasal Cannula 2 08/01/23 02:30 08/01/23 02:00 Nasal Cannula 2 08/01/23 02:00 08/01/23 01:35 08/01/23 01:30 08/01/23 01:29 Nasal Cannula 2 08/01/23 01:00 08/01/23 01:00 08/01/23 00:30 08/01/23 00:30 Nasal Cannula 2 08/01/23 00:00 07/31/23 23:56 Nasal Cannula 2 07/31/23 23:53 07/31/23 23:53 Room Air 07/31/23 23:30 Room Air 07/31/23 23:30 07/31/23 22:39 07/31/23 22:33 Room Air 07/31/23 22:32 Room Air 07/31/23 22:31 Room Air 07/31/23 22:31 Room Air 07/31/23 19:35 Room Air Diagnostic Findings Laboratory Results WBC 6.77 K/ul (4.8-10.8) 07/31/23 19:56 RBC 5.32 M/uL (4.20-5.40) 07/31/23 19:56 Hgb 13.9 g/dl (12.0-16.0) 07/31/23 19:56 Hct 45.3 % (37.0-47.0) 07/31/23 19:56 MCV 85.2 fL (80.0-100.0) 07/31/23 19:56 MCH 26.1 pg (25.0-34.0) 07/31/23 19:56 MCHC 30.7 g/dL (32.0-36.0) L 07/31/23 19:56 RDW Std Deviation 49.5 fL (36.4-46.3) H 07/31/23 19:56 RDW Coeff of Jonathan 16.2 % (11.5-14.5) H 07/31/23 19:56 Plt Count 151 K/uL (130-400) 07/31/23 19:56 MPV 12.7 fL (9.4-12.4) H 07/31/23 19:56 Immature Gran % (Auto) 0.1 % 07/31/23 19:56 Neut % (Auto) 67.9 % 07/31/23 19:56 Lymph % (Auto) 20.8 % 07/31/23 19:56 Sullivan % (Auto) 10.5 % 07/31/23 19:56 Eos % (Auto) 0.6 % 07/31/23 19:56 Baso % (Auto) 0.1 % 07/31/23 19:56 Neut # (Auto) 4.59 K/uL (1.40-6.50) 07/31/23 19:56 Lymph # (Auto) 1.41 K/uL (1.20-3.40) 07/31/23 19:56 Sullivan # (Auto) 0.71 K/uL (0.11-0.59) H 07/31/23 19:56 Eos # (Auto) 0.04 K/uL (0.00-0.50) 07/31/23 19:56 Baso # (Auto) 0.01 K/uL (0.00-0.20) 07/31/23 19:56 Immature Gran # (Auto) 0.01 K/uL (0.01-0.20) 07/31/23 19:56 PT 13.4 Seconds (9.0-12.0) H 07/31/23 19:56 INR 1.2 (0.9-1.1) H 07/31/23 19:56 APTT 29.6 Seconds (21.0-31.0) 07/31/23 19:56 PTT Ratio 1.0 07/31/23 19:56 Sodium 138 mmol/L (136-145) 07/31/23 19:56 Potassium 4.0 mmol/L (3.5-5.1) 07/31/23 19:56 Chloride 100 mmol/L (98-107) 07/31/23 19:56 Carbon Dioxide 31 mmol/L (21-32) 07/31/23 19:56 Anion Gap 7 (3-11) 07/31/23 19:56 BUN 20 mg/dl (6-23) 07/31/23 19:56 Creatinine 1.16 mg/dl (0.6-1.2) 07/31/23 19:56 Est Cr Clr Drug Dosing Not Reportable 07/31/23 19:56 Est GFR ( Amer) 49.4 ml/min 07/31/23 19:56 Est GFR (Non-Af Amer) 42.6 ml/min 07/31/23 19:56 BUN/Creatinine Ratio 17.2 (10-20) 07/31/23 19:56 Glucose 216 mg/dl (70-99(Fasting)) H 07/31/23 19:56 Calcium 9.6 mg/dl (8.6-10.3) 07/31/23 19:56 Total Bilirubin 0.8 mg/dl (0.2-1.0) 07/31/23 19:56 AST 15 U/L (13-39) 07/31/23 19:56 ALT 11 U/L (7-52) 07/31/23 19:56 Alkaline Phosphatase 70 U/L (34-104) 07/31/23 19:56 Troponin I High Sens 16.8 pg/ml (0-14) H 07/31/23 19:56 B-Natriuretic Peptide 149 pg/ml (0-100) H 07/31/23 23:35 Total Protein 6.8 gm/dl (6.0-8.3) 07/31/23 19:56 Albumin 4.0 gm/dl (3.4-5.0) 07/31/23 19:56 Globulin 2.8 gm/dl (2.5-4.0) 07/31/23 19:56 Albumin/Globulin Ratio 1.4 (0.9-2) 07/31/23 19:56 SARS-CoV-2 (PCR) NEGATIVE (Negative) 07/31/23 19:56 Influenza Type A (PCR) Negative (Neg) 07/31/23 19:56 Influenza Type B (PCR) Negative (Neg) 07/31/23 19:56 RSV (RT-PCR) Negative (Neg) 07/31/23 19:56 Impressions Chest CTA 07/31/23 23:20 Exam(s): CTA CHEST IV Amt: 115 ml optiray 320 EXAM: CT Angiography Chest With Intravenous Contrast CLINICAL HISTORY: PE. TECHNIQUE: Axial computed tomographic angiography images of the chest with intravenous contrast. CTDI is 43.98 mGy and DLP is 632.65 mGy-cm. Automated exposure control was utilized for the study. A dose lowering technique was utilized adhering to the principles of ALARA. MIP reconstructed images were created and reviewed. COMPARISON: No relevant prior studies available. FINDINGS: Limitations: Evaluation is limited by respiratory artifact and accentuated kyphosis. Pulmonary arteries: Accounting for extensive respiratory artifact, there is no definite evidence for pulmonary embolism. The majority of the distal subsegmental pulmonary artery branches are of nondiagnostic quality. Aorta: No acute findings. No thoracic aortic aneurysm. Lungs: Unremarkable. No mass. No consolidation. Pleural space: Moderate left pleural effusion layering posteriorly, measuring up to approximately 5 cm. No loculation. Curvilinear subsegmental changes noted involving the left lung. There is pleural thickening laterally at the level of the major fissure which extends vertically, measuring up to 1 cm in thickness. No pneumothorax. Heart: Cardiomegaly. Reflux of contrast into the intrahepatic IVC and proximal hepatic veins is noted. Trace pericardial effusion. Bones/joints: No acute osseous abnormality. Prominent chronic anterior wedging from T5-T9 levels, resulting in accentuated kyphosis. Soft tissues: Unremarkable. Lymph nodes: Unremarkable. No enlarged lymph nodes. Tubes, lines and devices: Left subclavian approach single lead defibrillator noted in the region of the right ventricle with the tip external to the right ventricle approximately 1 cm. IMPRESSION: 1. Accounting for extensive respiratory artifact, there is no definite evidence for pulmonary embolism. The majority of the distal subsegmental pulmonary artery branches are of nondiagnostic quality. 2. Cardiomegaly. Reflux of contrast into the intrahepatic IVC and proximal hepatic veins is noted. This is a nonspecific finding and may be related to rate of contrast administration. However, this finding is also seen with right heart dysfunction. 3. Moderate left pleural effusion layering posteriorly, measuring up to approximately 5 cm. No loculation. 4. Subsegmental changes, most notable involving the left lung. No lobar consolidation. No pneumothorax. Electronically signed by: Yovany Blanc MD 08/01/23 01:30 AM ECG Additional Comments: ECG. Atrial fibrillation rate of 94. Code Status & VTE Plan VTE Prophylaxis Plan VTE Prophylaxis will be ordered: Yes
[2023-08-01] MEDS ORDERED: ACETAMINOPHEN 325 MG TAB PO PRN (05:39)
[2023-08-01] MEDS ORDERED: CARBOHYDRATES FOR HYPOGLYCEMIA PO PRN (05:39)
[2023-08-01] MEDS ORDERED: NITROGLYCERIN SL 0.4 MG/TAB TAB SL PRN ×2 (05:39)
[2023-08-01] MEDS ORDERED: GLUCAGON FOR INJ 1 MG VIAL SQ PRN (05:39)
[2023-08-01] MEDS ORDERED: GLUCOSE 40% GEL 15 GM TUBE PO PRN (05:39)
[2023-08-01] MEDS ORDERED: POLYETHYLENE (MIRALAX) 17 GM PACK PO PRN (05:39)
[2023-08-01] MEDS ORDERED: GLUCOSE 10 TAB/TUBE PO PRN (05:39)
[2023-08-01] MEDS ORDERED: DEXTROSE 50% 50 ML SYRINGE IV PRN (05:39)
[2023-08-01] MEDS: cefTRIAXone SODIUM 1,000 MG in DEXTROSE 5 % MINI-B 50 ML IV SCH (06:51)
[2023-08-01 07:22] LABS: Basophils # (auto) 0.01 K/uL (0.00-0.20); Basophils % (auto) 0.1 %; Eosinophils # (auto) 0.03 K/uL (0.00-0.50); Eosinophils % (auto) 0.4 %; Hematocrit (blood only) 39.1 % (37.0-47.0); Hemoglobin 12.5 g/dl (12.0-16.0); Immature Granulocytes # (auto) 0.01 K/uL (0.01-0.20); Immature Granulocytes % (auto) 0.1 %; Lymphocytes % (auto) 25.5 %; Mean Corpuscular Hemoglobin 26.7 pg (25.0-34.0); Mean Corpuscular Volume 83.5 fL (80.0-100.0); Mean Platelet Volume 12.4 fL (9.4-12.4); Monocytes # (auto) 0.83 K/uL (0.11-0.59); Monocytes % (auto) 11.1 %; Neutrophils # (auto) 4.67 K/uL (1.40-6.50); Neutrophils % (auto) 62.8 %; Platelet Count 124 K/uL (130-400); RDW Coefficient of Variation 16.3 % (11.5-14.5); RDW Standard Deviation 49.5 fL (36.4-46.3); Red Blood Count 4.68 M/uL (4.20-5.40); White Blood Count 7.45 K/ul (4.8-10.8)
[2023-08-01 07:26] LABS: BUN Creatinine Ratio 19.4 (10-20); Calcium 8.9 mg/dl (8.6-10.3); Est GFR (African American) 53.8 ml/min; Est GFR (Non-African American) 46.4 ml/min; Magnesium 2.2 mg/dl (1.7-2.4)
[2023-08-01 07:34] LABS: Troponin I High Sensitivity 13.6 pg/ml (0-14)
--- NOTE | 2023-08-01 08:03 | XRay Report ---
XR chest 1V not portable CLINICAL HISTORY: Chest pain, nonspecific TECHNIQUE: Single frontal radiograph of the chest was obtained. Comparison: None available at the time of this dictation. FINDINGS: Pacemaker defibrillator is seen. Calcified aortic knob is seen. The lungs are clear. No evidence of p leural effusion or pneumothorax. IMPRESSION: No acute chest disease. ACT 112: Negative or not required by law. Electronically signed by: Jerry Salinas M.D. 08/01/2023 8:01 AM
--- NOTE | 2023-08-01 08:32 | Electrocardiogram Report ---
Test Reason : Blood Pressure : / mmHG Vent. Rate : 094 BPM Atrial Rate : 000 BPM P-R Int : 000 ms QRS Dur : 082 ms QT Int : 342 ms P-R-T Axes : 000 020 163 degrees QTc Int : 427 ms Atrial fibrillation Abnormal ECG No previous ECGs available Confirmed by Adama Dumont ([id number]) on 08/01/2023 8:32:27 AM Referred By: REFERRED SELF Confirmed By:Adama Dumont
[2023-08-01] MEDS ORDERED: FUROSEMIDE 40 MG/4 ML VIAL IV SCH (09:00)
[2023-08-01 09:19] LABS: Estimated Average Glucose 183 mg/dl
[2023-08-01] MEDS: PANTOprazole 40 MG TAB PO SCH (09:34)
[2023-08-01] MEDS: APIXABAN 5 MG TABLET PO SCH (09:34)
[2023-08-01] MEDS: METOPROLOL SUCC 25MG EXT REL TAB PO SCH (09:35)
[2023-08-01] MEDS: COLCHICINE 0.6 MG TAB PO SCH (09:35)
[2023-08-01] MEDS: INSULIN ASPART PER UNIT CHARGE SC SCH ×4 (10:09→19:46)
--- NOTE | 2023-08-01 10:36 | Cardiology Consultation ---
Date of Consultation August 01, 2023 Assessment & Plan (1) Chest pain: (2) Chronic a-fib: (3) Diastolic heart failure: (4) Non-occlusive coronary artery disease: (5) Cardiac arrest with ventricular fibrillation: (6) ICD (implantable cardioverter-defibrillator) in place: Supervising Physician Co-Signing Physician Notes Attending Staff: Pt seen and examined with AP Staff 88 yo woman presenting with chest pain * EKG - no acute change or active ischemia noted * CXR: no infiltrates; left pleural effusion * CTA/PE - no PE; large left pleural effusion * Troponin 16.8, 13.6 * Normotensive on presentation * No evidence of Aortic Dissection although study not gated for aortic pathology * Left-sided chest pain * Relatively constant - * Duration - 4 to 5 days * + bilateral LE erythema * Weeping - right lower extremity * Presentation was not reminiscent of pericarditis presentation * Non-smoker * + Prodcutive cough * No fever/chills * Recent URI Cardiac Hx: * Vfib arrest 2010 * ICD in place (single lead) * Chronic Afib * 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 * Cath - 10/2022 - Non--obstructive CAD; LCX 50%, LAD 60% * "Viral Pericarditis" - 10/2022 - pericardial drain placed * HFpEF * Hyperlipidemia * Hypertension * DM * Critical Left Limb ischemia - s/p Vascular Pass (12/2022) Plans: * 88 yo woman * presenting with Chest Pain * CP - constant -pattern not consistent with ACS * Very mildly elevated Troponin * CTA - no PE - + Large Left Pleural Effusion * + Discomfort on palpation of ribs - PE not consistent with ACS * On Torsemide 40 mg po per day - has not missed any tabs * Continue Torsemide 40 mg po per day * No evidence of significant volume overload on examination * No evidence of ischemia or pericarditis on EKG * ECHOcardiogram - pending * Would consider left Thoracentesis - this may address dyspnea/tachypnea- pt is on DOAC * Chest Pain - likely musculoskeletal - rib pathology? Consider lidocaine patch * SBP elevated * Goal SBP 120 mmHg * Consider MADALYN or ARB given DM + HTN * Rx of possible LE cellulitis Gerhard Rouse History of Present Illness Reason for Consultation: Chest pain, ? CHF Requesting Physician: Dr. Nolasco Attending Physician: Dr. Gregg History of Present Illness 88-year-old female [facility] 07/30/2023 - discharged home after a negative EKG, blood work and chest x-ray. Persistent discomfort, sharp left sided chest pain radiating into the left shoulder. EKG: revealed atrial fibrillation at 94 bpm. Troponin: 16.8 -> 13.6 pg/mL Telemetry: Atrial fibrillation primarily in the 90's CXR - No acute chest disease CT: No definite PE. ? Right heart dysfunction. Moderate left pleural effusion. History of ventricular fibrillation cardiac arrest in 2010, Takotsubu cardiomyopathy, status post single chamber ICD implantation, generator exchange on March 18, 2020 April 05, 2023 interrogation: 8.1 years longevity. Mode VVI, lower rate 40 bpm. Chronic atrial fibrillation, controlled rates. 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 November 01, 2022 Coronary Angiography: Non-obstructive CAD. No culprit for EKG presentation. Ostial LCx has 50% stenosis and apical LAD has 60% stenosis Presentation in October 2022 with viral pericarditis, cardiac tamponade status post pericardiocentesis, 570 mL of sanguineous/hemorrhagic fluid Nonischemic cardiomyopathy Chronic diastolic heart failure Chronic atrial fibrillation. Dyslipidemia T2DM Asthma Critical limb ischemia, left lower extremity, status post autologous bypass graft Social History: Nonsmoker. No alcohol. Lives also Family History: Positive for CAD in mother, father with lung disorder. Allergies Allergy/AdvReac Type Severity Reaction Status Date / Time No Known Allergies Allergy Verified 07/31/23 23:42 Home Medications Medication Instructions Recorded Confirmed Type apixaban 5 mg tablet (Eliquis) 5 mg BID 03/18/20 07/31/23 History atorvastatin 40 mg tablet (Lipitor) 40 mg PO HS 03/18/20 07/31/23 History glipizide 2.5 mg tablet, extended 2.5 mg PO BID 03/18/20 07/31/23 History release 24 hr nitroglycerin 0.4 mg sublingual 0.4 mg sublingual DIRECTED PRN 03/18/20 07/31/23 History tablet (Nitrostat) Chest Pain torsemide 20 mg tablet 40 mg PO DAILY 03/18/20 07/31/23 History alendronate 70 mg tablet 70 mg PO WK 07/31/23 07/31/23 History colchicine 0.6 mg tablet 0.6 mg PO DAILY 07/31/23 07/31/23 History empagliflozin 25 mg tablet 25 mg PO DAILY 07/31/23 07/31/23 History (Jardiance) metoprolol succinate 25 mg 12.5 mg PO DAILY 07/31/23 07/31/23 History tablet,extended release 24 hr omeprazole 20 mg capsule,delayed 20 mg PO DAILY 07/31/23 07/31/23 History release pregabalin 150 mg capsule 150 mg PO BID 07/31/23 07/31/23 History Patient History Social History Smoking Status: Never smoker Hx Alcohol Use: No Hx Substance Use: No Preferred Language: Guamanian Communication Ability: Effective Beliefs That Will Affect Care: None Current Living Situation: Alone Feels Safe at Home: Yes Assistive Devices: Denture - Upper, Denture - Lower and Glasses Review of Systems Review of Systems: Complete Review of Systems is as stated above, negative, or noncontributory. Physical Exam Physical Exam: Thin woman + Tachypnea S1S2 2/6 systolic murmur Decreased BS - left base Dullness to percussion - left base Bilateral LE erythema Weeping - Left Leg Results & Data Vital Signs (Past 12 Hours) Vital Signs Pulse Pulse Resp BP BP Pulse Ox Pulse Ox 08/01/23 10:01 118 H 34 H 146/93 H 95 08/01/23 09:01 104 H 32 H 138/76 93 08/01/23 08:28 101 H 34 H 134/98 97 08/01/23 08:00 80 30 H 121/101 H 98 08/01/23 07:30 93 H 28 H 124/92 97 08/01/23 07:00 91 H 32 H 126/89 99 08/01/23 05:48 97 08/01/23 05:48 97 H 24 113/76 97 08/01/23 04:58 101 H 08/01/23 03:00 111/87 08/01/23 03:00 90 24 96 08/01/23 02:44 92 H 08/01/23 02:30 90 26 H 96 08/01/23 02:30 117/85 08/01/23 02:00 90 24 96 08/01/23 02:00 112/71 08/01/23 01:35 99 H 22 08/01/23 01:30 130/61 08/01/23 01:29 87 19 98 08/01/23 01:00 117/61 08/01/23 01:00 91 H 23 96 08/01/23 00:30 109/81 08/01/23 00:30 95 H 23 96 08/01/23 00:00 130/105 H 07/31/23 23:56 95 07/31/23 23:53 130/93 07/31/23 23:53 96 H 26 H 86 L 07/31/23 23:30 91 H 26 H 91 07/31/23 23:30 108/79 07/31/23 22:39 97 H 07/31/23 22:33 92 07/31/23 22:32 07/31/23 22:31 99 H 18 124/75 92 07/31/23 22:31 O2 Del Method O2 Del Method O2 Flow Rate 08/01/23 10:01 Nasal Cannula 2 08/01/23 09:01 Nasal Cannula 2 08/01/23 08:28 Nasal Cannula 2 08/01/23 08:00 Nasal Cannula 2 08/01/23 07:30 Nasal Cannula 2 08/01/23 07:00 Nasal Cannula 2 08/01/23 05:48 Nasal Cannula 08/01/23 05:48 Nasal Cannula 2 08/01/23 04:58 08/01/23 03:00 08/01/23 03:00 Nasal Cannula 2 08/01/23 02:44 08/01/23 02:30 Nasal Cannula 2 08/01/23 02:30 08/01/23 02:00 Nasal Cannula 2 08/01/23 02:00 08/01/23 01:35 08/01/23 01:30 08/01/23 01:29 Nasal Cannula 2 08/01/23 01:00 08/01/23 01:00 08/01/23 00:30 08/01/23 00:30 Nasal Cannula 2 08/01/23 00:00 07/31/23 23:56 Nasal Cannula 2 07/31/23 23:53 07/31/23 23:53 Room Air 07/31/23 23:30 Room Air 07/31/23 23:30 07/31/23 22:39 07/31/23 22:33 Room Air 07/31/23 22:32 Room Air 07/31/23 22:31 Room Air 07/31/23 22:31 Room Air Laboratory Results Cardiac Enzymes 07/31/23 07/31/23 08/01/23 Range/Units 19:56 23:35 06:41 AST 15 (13-39) U/L Troponin I High Sens 16.8 H 13.6 (0-14) pg/ml B-Natriuretic Peptide 149 H (0-100) pg/ml Coagulation 07/31/23 07/31/23 Range/Units 19:56 23:35 PT 13.4 H (9.0-12.0) Seconds APTT 29.6 (21.0-31.0) Seconds B-Natriuretic Peptide 149 H (0-100) pg/ml CBC 07/31/23 08/01/23 Range/Units 19:56 06:41 WBC 6.77 7.45 (4.8-10.8) K/ul RBC 5.32 4.68 (4.20-5.40) M/uL Hgb 13.9 12.5 (12.0-16.0) g/dl Hct 45.3 39.1 (37.0-47.0) % Plt Count 151 124 L (130-400) K/uL Neut # (Auto) 4.59 4.67 (1.40-6.50) K/uL Lymph # (Auto) 1.41 1.90 (1.20-3.40) K/uL [place] # (Auto) 0.71 H 0.83 H (0.11-0.59) K/uL Eos # (Auto) 0.04 0.03 (0.00-0.50) K/uL Baso # (Auto) 0.01 0.01 (0.00-0.20) K/uL Comprehensive Metabolic Panel 07/31/23 08/01/23 Range/Units 19:56 06:41 Sodium 138 139 (136-145) mmol/L Potassium 4.0 4.0 (3.5-5.1) mmol/L Chloride 100 102 (98-107) mmol/L Carbon Dioxide 31 31 (21-32) mmol/L BUN 20 21 (6-23) mg/dl Creatinine 1.16 1.08 (0.6-1.2) mg/dl Glucose 216 H 157 H (70-99(Fasting)) mg/dl Calcium 9.6 8.9 (8.6-10.3) mg/dl AST 15 (13-39) U/L ALT 11 (7-52) U/L Alkaline Phosphatase 70 (34-104) U/L Total Protein 6.8 (6.0-8.3) gm/dl Albumin 4.0 (3.4-5.0) gm/dl Intake and Output 07/31/23 08/01/23 08/01/23 22:59 06:59 14:59 Intake Total 50 / 50 Balance 50 / 50 Intake: IV 50 / 50 cefTRIAXone SODIUM 1,000 mg In 50 / 50 Dextrose 5 % Mini-B 50 ml @ 100 mls/hr IV Q24H [facility] Rx#: [id number] Other: Weight 61 kg Weight Measurement Method Built in [facility] Diagnostic Findings December 24, 2022 TTE Interpretation Summary (as per Dr. Barbour): The qualitative LV ejection fraction is 55-59% (normal). The right ventricular cavity is mildly dilated. The right ventricular systolic function is normal as assessed by tricuspid annular plane systolic excursion. The aortic valve is mildly calcified. There is a calcified nodule on Aortic valve cup which was present on prior study as well. There is mild mitral annular calcification. (1) Chest pain Chest pain type: unspecified Qualified Code(s): R07.9 - Chest pain, unspecified
--- NOTE | 2023-08-01 10:43 | Pulmonary Consultation ---
Date of Consultation August 01, 2023 Assessment & Plan (1) Pleural effusion: (2) Acute respiratory failure with hypoxia: (3) CHF (congestive heart failure): (4) Diastolic heart failure: Plan IMPRESSION: 88-year-old female presenting with acute hypoxic respiratory failure in the setting of moderate LEFT-sided pleural effusion. RECOMMENDATIONS: 1. LEFT-sided pleural effusion - Uncertain if this represents volume overload in a patient with diastolic heart dysfunction. Appreciate cardiology management with volume form of increasing her Lasix. I did perform bedside ultrasound which shows moderate-sized effusion which would be amendable to thoracentesis. Unfortunately, the patient did receive her Eliquis dose this morning. Patient would need to be without the medication for 48 hours preferably prior to thoracentesis. Medication placed on hold at this time. Agree with CPAP to provide positive pressure in addition to Lasix in the interim. We will see how she does. Certainly, if her condition declines, we could perform the procedure emergently despite risks of bleeding, however we would like to defer this if possible. Would send the fluid off for Gram stain, cell count, and cytology if we were to move forward with procedure. 2. Acute respiratory failure with hypoxia - In the setting of #1. Chest CT reviewed which demonstrates no new process or other infiltrative processes. Her white count is within normal limits. She is not febrile or without recent upper respiratory infection. Uncertain of the utility of antibiotics. 3. CHF - Likely largely contributory in this patient. Continue with cardiology recommendations. Thank you for allowing us to participate in the care of this patient. Pulmonary service will continue to follow. History of Present Illness Reason for Consultation: hypoxia, moderate pleural effusion Requesting Physician: Dr. Gregg Attending Physician: Phoebe Gregg MD History of Present Illness Patient is an 88-year-old female with a significant past medical history of A- fib anticoagulated on Eliquis, nonocclusive coronary disease, diastolic heart failure, prior history of V-fib arrest status post ICD placement who presented to the emergency department with a few day history of LEFT-sided chest discomfort and worsening shortness of breath. The patient reports dyspnea on exertion at baseline. Additionally, she reports that she has to sleep in a chair or with the head of her bed elevated secondary to being unable to breathe while laying flat. This is not new, but has worsened the last few days. She reports no chest pain or discomfort at this time. She does report dyspnea with rest which is new. She reports a history of asthma for which she is treated with samples at her primary care provider's office. She notes taking an inhaler twice daily as well as a rescue inhaler as needed. She does not report any clinical benefit from either of the inhalers. Pulmonary medicine consulted in the setting of worsening LEFT-sided effusion. The patient informs me that she had undergone draining from fluid "around my heart" within the last several weeks. Otherwise, the patient is a relatively poor historian only able to provide symptom complaints for the most part today. Allergies Allergy/AdvReac Type Severity Reaction Status Date / Time No Known Allergies Allergy Verified 07/31/23 23:42 Home Medications Medication Instructions Recorded Confirmed Type apixaban 5 mg tablet (Eliquis) 5 mg BID 03/18/20 07/31/23 History atorvastatin 40 mg tablet (Lipitor) 40 mg PO HS 03/18/20 07/31/23 History glipizide 2.5 mg tablet, extended 2.5 mg PO BID 03/18/20 07/31/23 History release 24 hr nitroglycerin 0.4 mg sublingual 0.4 mg sublingual DIRECTED PRN 03/18/20 07/31/23 History tablet (Nitrostat) Chest Pain torsemide 20 mg tablet 40 mg PO DAILY 03/18/20 07/31/23 History alendronate 70 mg tablet 70 mg PO WK 07/31/23 07/31/23 History colchicine 0.6 mg tablet 0.6 mg PO DAILY 07/31/23 07/31/23 History empagliflozin 25 mg tablet 25 mg PO DAILY 07/31/23 07/31/23 History (Jardiance) metoprolol succinate 25 mg 12.5 mg PO DAILY 07/31/23 07/31/23 History tablet,extended release 24 hr omeprazole 20 mg capsule,delayed 20 mg PO DAILY 07/31/23 07/31/23 History release pregabalin 150 mg capsule 150 mg PO BID 07/31/23 07/31/23 History Patient History Social History Smoking Status: Never smoker Hx Alcohol Use: No Hx Substance Use: No Preferred Language: Stateless Communication Ability: Effective Beliefs That Will Affect Care: None Current Living Situation: Alone Feels Safe at Home: Yes Assistive Devices: Denture - Upper, Denture - Lower and Glasses Review of Systems Review of Systems: A complete 10 point review of systems was reviewed with the patient with pertinent positives and negatives as per history of present illness. All else were negative. Physical Exam Physical Exam: VITAL SIGNS - Vital signs and nursing notes were reviewed. GENERAL - 88-year-old female appearing her stated age who is in mild respiratory distress. Able to speak in complete sentences though dyspnea is noted during conversation. SKIN -bulky erythematous rash noted to the RIGHT lower extremity with dressing in place to the tibial area inferiorly. NOSE - Midline and without cyanosis. MOUTH/OROPHARYNX - Without perioral cyanosis. NECK - Neck with FROM. LUNGS -kyphotic and scoliotic. Auscultation reveals rhonchorous breath sounds focused at the lung bases. No wheezing appreciated. CARDIAC - RRR with S1/S2. No murmur, rubs, or gallops appreciated. ABDOMEN - Abdominal inspection demonstrates flat. BS normoactive all four quadrants. No tenderness, palpable masses, or ascites noted. EXTREMITIES - Nail clubbing not present. no peripheral cyanosis. Slight pretibial edema present. +3/5 radial palpated throughout. PSYCH - A&Ox3 and cooperates fully with examiner. Pt is very pleasant and interacts well with examiner. Results & Data Results & Data Vital Signs (Past 12 Hours) Vital Signs Pulse Pulse Resp BP BP Pulse Ox Pulse Ox 08/01/23 10:01 118 H 34 H 146/93 H 95 08/01/23 09:01 104 H 32 H 138/76 93 08/01/23 08:28 101 H 34 H 134/98 97 08/01/23 08:00 80 30 H 121/101 H 98 08/01/23 07:30 93 H 28 H 124/92 97 08/01/23 07:00 91 H 32 H 126/89 99 08/01/23 05:48 97 08/01/23 05:48 97 H 24 113/76 97 08/01/23 04:58 101 H 08/01/23 03:00 111/87 08/01/23 03:00 90 24 96 08/01/23 02:44 92 H 08/01/23 02:30 90 26 H 96 08/01/23 02:30 117/85 11/13/23 02:00 90 24 96 08/01/23 02:00 112/71 08/01/23 01:35 99 H 22 08/01/23 01:30 130/61 08/01/23 01:29 87 19 98 08/01/23 01:00 117/61 08/01/23 01:00 91 H 23 96 08/01/23 00:30 109/81 08/01/23 00:30 95 H 23 96 08/01/23 00:00 130/105 H 07/31/23 23:56 95 07/31/23 23:53 130/93 07/31/23 23:53 96 H 26 H 86 L 07/31/23 23:30 91 H 26 H 91 07/31/23 23:30 108/79 O2 Del Method O2 Del Method O2 Flow Rate 08/01/23 10:01 Nasal Cannula 2 08/01/23 09:01 Nasal Cannula 2 08/01/23 08:28 Nasal Cannula 2 08/01/23 08:00 Nasal Cannula 2 08/01/23 07:30 Nasal Cannula 2 08/01/23 07:00 Nasal Cannula 2 08/01/23 05:48 Nasal Cannula 08/01/23 05:48 Nasal Cannula 2 08/01/23 04:58 08/01/23 03:00 08/01/23 03:00 Nasal Cannula 2 08/01/23 02:44 08/01/23 02:30 Nasal Cannula 2 08/01/23 02:30 08/01/23 02:00 Nasal Cannula 2 08/01/23 02:00 08/01/23 01:35 08/01/23 01:30 08/01/23 01:29 Nasal Cannula 2 08/01/23 01:00 08/01/23 01:00 08/01/23 00:30 08/01/23 00:30 Nasal Cannula 2 08/01/23 00:00 07/31/23 23:56 Nasal Cannula 2 07/31/23 23:53 07/31/23 23:53 Room Air 07/31/23 23:30 Room Air 07/31/23 23:30 PG Care Time/CCT Total # of Minutes Spent Total Time Spent with Patient: Total time spent is greater than 50% in coordination of care (as documented) at patient's floor/unit and/or counseling patient: Coding Level of Care Code 37732 IN/OBS CONSULT LVL 4,60M Diagnoses Pleural effusion J90 Acute respiratory failure with hypoxia J96.01 CHF (congestive heart failure) I50.9 Diastolic heart failure I50.30
[2023-08-01] MEDS: PREGABALIN 150 MG CAP PO SCH ×2 (11:02→19:53)
[2023-08-01 11:38] LABS: Base Excess VBG 4.5 mEq/L; HCO3 VBG 32 mmol/L; Oxygen Saturation VBG < 60.0 %; PCO2 VBG 61 mmHg (38-50); PO2 VBG 35 mmHg; pH VBG 7.33 (7.36-7.41)
--- NOTE | 2023-08-01 13:29 | XRay Report ---
XR chest 1V portable CLINICAL HISTORY: SOB, worsening hypoxia TECHNIQUE: Single frontal radiograph of the chest was obtained. Comparison: Comparison is made to chest radiograph 07/31/2023 FINDINGS: Pacemaker defibrillator is seen. Cardiomegaly is noted. There is a left retrocardiac opacity. No evid ence of pleural effusion or pneumothorax. IMPRESSION: Left retrocardiac opacity, which may represent atelectasis, pneumonia, and/or aspiration. Stable card iomegaly. ACT 112: Negative or not required by law. Electronically signed by: Jerry Salinas M.D. 08/01/2023 1:28 PM
[2023-08-01] MEDS: FUROSEMIDE 40 MG/4 ML VIAL IV SCH (16:55)
[2023-08-01] MEDS: ATORVASTATIN 40 MG TAB PO SCH (19:53)
--- NOTE | 2023-08-02 01:26 | Communication Note ---
Date of Service: August 01, 2023 Pt seen in the AM multiple times. Tachypneic and tachycardic. CTA chest with no noted PE but notes left sided moderate pleural effusion, layering. Pulmonology consult placed in addition to cardiology for possible thoracentesis. Per pulm, pt received Eliquis today, will defer thoracentesis for 48hours unless urgently needed. VBG ordered, IV Lasix dose increased to 40mg BID in addition to po torsemide, pittman placed, started on CPAP/biPAP. Will continue to monitor renal function and symptoms.
[2023-08-02] MEDS: cefTRIAXone SODIUM 1,000 MG in DEXTROSE 5 % MINI-B 50 ML IV SCH (05:36)
[2023-08-02 07:02] LABS: Base Excess VBG 4.3 mEq/L; HCO3 VBG 32 mmol/L; Oxygen Saturation VBG 82.9 %; PCO2 VBG 62 mmHg (38-50); PO2 VBG 53 mmHg; pH VBG 7.32 (7.36-7.41)
[2023-08-02 07:03] LABS: Basophils # (auto) 0.01 K/uL (0.00-0.20); Basophils % (auto) 0.1 %; Eosinophils % (auto) 1.3 %; Hematocrit (blood only) 34.8 % (37.0-47.0); Hemoglobin 11.1 g/dl (12.0-16.0); Immature Granulocytes # (auto) 0.03 K/uL (0.01-0.20); Immature Granulocytes % (auto) 0.4 %; Lymphocytes # (auto) 1.71 K/uL (1.20-3.40); Lymphocytes % (auto) 22.2 %; Mean Corpuscular Hemoglobin 26.9 pg (25.0-34.0); Mean Corpuscular Hgb Conc 31.9 g/dL (32.0-36.0); Mean Corpuscular Volume 84.5 fL (80.0-100.0); Mean Platelet Volume 12.4 fL (9.4-12.4); Monocytes # (auto) 0.83 K/uL (0.11-0.59); Monocytes % (auto) 10.8 %; Neutrophils # (auto) 5.02 K/uL (1.40-6.50); Neutrophils % (auto) 65.2 %; Platelet Count 116 K/uL (130-400); RDW Standard Deviation 48.8 fL (36.4-46.3); Red Blood Count 4.12 M/uL (4.20-5.40)
[2023-08-02 07:19] LABS: Calcium 8.7 mg/dl (8.6-10.3); Creatinine Clr Calc Pharmacy 36.3 ml/min; Est GFR (African American) 62.1 ml/min; Est GFR (Non-African American) 53.6 ml/min; Magnesium 2.1 mg/dl (1.7-2.4); Phosphorus 3.4 mg/dl (2.5-4.9)
[2023-08-02] MEDS: INSULIN ASPART PER UNIT CHARGE SC SCH ×4 (08:20→20:31)
[2023-08-02] MEDS: FUROSEMIDE 40 MG/4 ML VIAL IV SCH ×2 (08:21→16:48)
[2023-08-02] MEDS: PANTOprazole 40 MG TAB PO SCH (08:22)
[2023-08-02] MEDS: COLCHICINE 0.6 MG TAB PO SCH (08:22)
[2023-08-02] MEDS: METOPROLOL SUCC 25MG EXT REL TAB PO SCH (08:22)
[2023-08-02] MEDS: PREGABALIN 150 MG CAP PO SCH ×2 (08:27→20:40)
--- NOTE | 2023-08-02 08:28 | Critical Care Progress Note ---
Date of Service August 02, 2023 Assessment & Plan (1) Pleural effusion: (2) Acute respiratory failure with hypoxia: (3) CHF (congestive heart failure): (4) Diastolic heart failure: Plan IMPRESSION: 88-year-old female presenting with acute hypoxic respiratory failure in the setting of moderate LEFT-sided pleural effusion. RECOMMENDATIONS: 1. LEFT-sided pleural effusion - Uncertain if this represents volume overload in a patient with diastolic heart dysfunction. Appreciate cardiology management with volume form of increasing her Lasix. I did perform bedside ultrasound which shows moderate-sized effusion with stranding for which thoracentesis is indicated. Eliquis is on hold. Agree with CPAP to provide positive pressure in addition to Lasix in the interim. 2. Acute respiratory failure with hypoxia - In the setting of #1. Chest CT reviewed which demonstrates no new process or other infiltrative processes. Her white count is within normal limits, afebrile and without recent upper respiratory infection. Given potentially complicated pleural effusion with stranding, continue empiric ceftriaxone and follow up cultures. 3. CHF - Likely largely contributory in this patient. Continue with cardiology recommendations. Thank you for allowing us to participate in the care of this patient. Pulmonary service will continue to follow. Admission and Anticipated Discharge Date Admission Date: August 01, 2023 Subjective no events overnight. did not use CPAP for long. Didn't like it. Physical Exam Physical Exam: VITAL SIGNS - Vital signs and nursing notes were reviewed. GENERAL - comfortable sitting up on side of bed just finished eating breakfast. SKIN -bulky erythematous rash noted to the RIGHT lower extremity with dressing in place to the tibial area inferiorly. NOSE - Midline and without cyanosis. MOUTH/OROPHARYNX - Without perioral cyanosis. NECK - Neck with FROM. LUNGS -kyphotic and scoliotic. Auscultation reveals rhonchorous breath sounds focused at the lung bases. No wheezing appreciated. CARDIAC - RRR with S1/S2. No murmur, rubs, or gallops appreciated. EXTREMITIES - Nail clubbing not present. no peripheral cyanosis. Slight pretibial edema present. PSYCH - A&Ox3 and cooperates fully with examiner. Pt is very pleasant and interacts well with examiner. Results & Data Results & Data Vital Signs (Past 12 Hours) Vital Signs Temp Pulse Pulse Resp BP Pulse Ox O2 Del Method 08/02/23 07:49 36.5 C 93 H 22 120/67 97 Nasal Cannula 08/02/23 07:17 93 H 08/02/23 02:58 36.5 C 87 16 126/77 98 Nasal Cannula 08/01/23 23:36 94 H 08/01/23 23:00 36.5 C 92 H 19 111/72 100 Nasal Cannula 08/01/23 20:30 Nasal Cannula, CPAP O2 Flow Rate 08/02/23 07:49 4 08/02/23 07:17 08/02/23 02:58 08/01/23 23:36 08/01/23 23:00 08/01/23 20:30 4 Coding Level of Care Code 13202 SUB INP/OBS CARE 3/50MIN Diagnoses Pleural effusion J90 Acute respiratory failure with hypoxia J96.01 CHF (congestive heart failure) I50.9 Diastolic heart failure I50.30
--- NOTE | 2023-08-02 09:06 | Electrocardiogram Report ---
Test Reason : Blood Pressure : / mmHG Vent. Rate : 100 BPM Atrial Rate : 100 BPM P-R Int : 000 ms QRS Dur : 098 ms QT Int : 334 ms P-R-T Axes : 000 024 210 degrees QTc Int : 430 ms Atrial fibrillation with premature ventricular or aberrantly conducted complexes Abnormal ECG When compared with ECG of 31-JUL-2023 19:44, No significant change Confirmed by Adama Dumont ([id number]) on 08/02/2023 9:06:01 AM Referred By: REFERRED SELF Confirmed By:Adama Dumont
[2023-08-02 11:39] LABS: Total Protein Pleural Fluid 4.4 gm/dl
--- NOTE | 2023-08-02 11:51 | CT Scan Report ---
CT chest diagnostic wo con CLINICAL HISTORY: LEFT sided effusion - bloody TECHNIQUE: Multidetector row helical CT of the chest was performed. Coronal and sagittal reformations were obtained. Automated dose lowering techniques and/or adjustment according to patient size were u tilized for this exam. CT DOSE: 306.27 mGy.cm Comparison: Comparison is made to CTA chest 07/31/2023 FINDINGS: Lungs and pleura: Small left pleural effusion is seen, measuring greater than simple fluid density, w ith underlying atelectasis. Heart and pericardium: Cardiomegaly is seen with biatrial enlargement. Aortic valvular calcifications are seen. Vessels: Moderate atherosclerotic changes in the aorta and coronary arteries. Mediastinum and med: Unremarkable. Chest wall and lower neck: Unremarkable. Abdomen: Unremarkable. Bones: Multilevel compression deformities are seen. Degenerative changes are noted in the spine. No e vidence of acute fractures. IMPRESSION: Hyperdense left pleural effusion is seen compatible with previously reported hemorrhagic effusion. Ot herwise no acute abnormalities are seen. ACT 112: Negative or not required by law. Electronically signed by: Jerry Salinas M.D. 08/02/2023 11:49 AM
--- NOTE | 2023-08-02 11:59 | Procedure Note ---
Procedure Note Date of Service August 02, 2023 Note Left thoracentesis with ultrasound guidance A time out was performed and the chest x-ray was reviewed, the appropriate side was confirmed and marked. My hands were washed immediately prior to the procedure. I wore a surgical mask and sterile gloves throughout the procedure. The patient was prepped and draped in a sterile manner using chlorhexidine scrub after the appropriate level was percussed and confirmed by ultrasound. 1% lidocaine was used to anesthesize the skin, subcutaneous tissue, superior aspect of the rib periosteum and parietal pleura. A finder needle was then introduced over the superior aspect of the rib to locate the pleural fluid; hemorrhagic fluid was aspirated at a depth of approximately 4 cm. A 10-blade scalpel was used to gaye the skin at the insertion site. The arrow-bryant thoracentesis centesis device was was then introduced through the skin incision into the pleural space using negative aspiration. The thoracentesis catheter was then threaded without difficulty. 700ml of hemorrhagic fluid was removed without difficulty. The catheter was then removed. No immediate complications were noted during the procedure. A post-procedure bedside ultrasound showed reduction in amount of pleural effusion, no pneumothorax. Post-procedure chest CT showed the same with official report pending at this. The fluid will be sent for studies. Patient tolerated procedure well, no immediate complications noted. Coding CPT Codes Pulmonary/Thoracic - Pulmonary and Thoracic: 06924 Thoracentesis w imaging ([id number]) [facility] [place] Procedure Codes (Charges) Indication for Procedure Indication for procedure: pleural effusion Pulmonary/Thoracic Procedure 1: Pulmonary and Thoracic: 15529 Thoracentesis w imaging
[2023-08-02 13:08] LABS: Appearance Pleural Fluid Bloody; Color Pleural Fluid Red; Eosinophils, Fluid 1 %; Lymphocytes, Fluid 17 %; Mono,Macrophage,Mesothelial 28 %; Neutrophils, Fluid 54 %; Source Pleural Fluid Left Lung; WBC Pleural Fluid Auto 3735 /uL
--- NOTE | 2023-08-02 13:40 | Hospitalist Progress Note ---
Date of Service August 02, 2023 Assessment & Plan (1) Chest pain: Plan: 88-year-old female with past medical Hx significant for type 2 diabetes, hyperlipidemia, asthma, history of pneumonia, history of V-fib cardiac arrest in November 2010 s/p single-chamber ICD, history of A-fib, chronic diastolic CHF, critical limb ischemia of left lower extremity with autologous bypass graft with rest pain, hypertension, Takotsubo cardiomyopathy, acute viral pericarditis, history of bilateral cellulitis of lower leg admitted with acute hypoxic respiratory failure in the setting of left sided pleural effusion. Acute hypoxic respiratory Failure Left sided pleural effusion Possible Acute right-sided heart failure Was 86%/saturating on room air hs-troponin elevated and flattened Echo with EF 50-55% CT chest with noted layering of left sided pleural effusion, no PE IV Lasix 40mg BID and home torsemide Monitor daily weights and I's and O's Continue Rocephin Consult cardiology and pulmonology Pulmonology -thoracentesis done on 08/02 Diabetes Hold home medications ISS History of V-fib cardiac arrest S/p ICD History of A-fib On metoprolol succinate and Eliquis Eliquis on hold in setting of thoracentesis Hyperlipidemia On statin History of pericarditis On colchicine Diet: DMII DVT prophylaxis: On Eliquis, currently on hold in setting of thoracentesis Full code Admission and Anticipated Discharge Date Admission Date: August 01, 2023 Subjective Pt seen in the AM after her thoracentesis. Stated that her breathing was much improved. Denied other acute concerns. Review of Systems Review of Systems: All systems reviewed & are unremarkable except as noted in Subjective Physical Exam Physical Exam: General: Alert, oriented. No acute distress Skin: No noted rashes or bruises Psych: Appropriate mood and affect HEENT: NC/AT CV: RRR Resp: Breath sounds decreased bilaterally, no increased effort of breathing. Abdomen: Soft, nontender, nondistended. Extremities: No edema in lower extremities bilaterally. Results & Data Results & Data Vital Signs (Past 12 Hours) Vital Signs Temp Pulse Pulse Resp BP Pulse Ox O2 Del Method 08/02/23 11:15 36.6 C 87 18 108/73 96 Nasal Cannula 08/02/23 08:30 Nasal Cannula 08/02/23 07:49 36.5 C 93 H 22 120/67 97 Nasal Cannula 08/02/23 07:17 93 H 08/02/23 02:58 36.5 C 87 16 126/77 98 Nasal Cannula O2 Flow Rate 08/02/23 11:15 4 08/02/23 08:30 4 08/02/23 07:49 4 08/02/23 07:17 08/02/23 02:58 (1) Chest pain Chest pain type: unspecified Qualified Code(s): R07.9 - Chest pain, unspecified
--- NOTE | 2023-08-02 14:52 | Cardiology Progress Note ---
Date of Service August 02, 2023 Assessment & Plan (1) Chest pain: (2) Chronic a-fib: (3) Diastolic heart failure: (4) Non-occlusive coronary artery disease: (5) Cardiac arrest with ventricular fibrillation: (6) ICD (implantable cardioverter-defibrillator) in place: Plan Chest pain. Atypical. At rest. Reproducible with palpation. Improved. General measures advised. Decompensated diastolic congestive heart failure, HFpEF. Continue IV furosemide 40 mg twice per day Chronic atrial fibrillation. Continue rate control. Anticoagulation on hold; thoracentesis earlier today with removal of 700 mL of hemorrhagic fluid History of ventricular fibrillation arrest, status post single-chamber ICD implantation. Continue beta-meera therapy. Maintain normokalemia and normomagnesemia. Nonobstructive coronary artery disease via October 2022 cardiac catheterization (50% ostial LCx stenosis, 60% apical LAD stenosis) Presentation in October 2022 with viral pericarditis status post pericardiocentesis. Colchicine discontinued this admission as patient completed 3 months of therapy for first occurrence viral pericarditis. No symptoms or EKG findings suggestive of pericarditis. Echo this admission without pericardial effusion. Admission and Anticipated Discharge Date Admission Date: August 01, 2023 Supervising Physician Co-Signing Physician Notes Attending Staff: Pt seen and examined with AP Staff 88 yo woman presenting with chest pain * EKG - no acute change or active ischemia noted * CXR: no infiltrates; left pleural effusion * CTA/PE - no PE; large left pleural effusion * Troponin 16.8, 13.6 * Normotensive on presentation * No evidence of Aortic Dissection although study not gated for aortic pathology * Left-sided chest pain * Relatively constant - * Duration - 4 to 5 days * + bilateral LE erythema * Weeping - right lower extremity * Presentation was not reminiscent of pericarditis presentation * Non-smoker * + Prodcutive cough * No fever/chills * Recent URI Cardiac Hx: * Vfib arrest 2010 * ICD in place (single lead) * Chronic Afib * 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 * Cath - 10/2022 - Non--obstructive CAD; LCX 50%, LAD 60% * "Viral Pericarditis" - 10/2022 - pericardial drain placed * HFpEF * Hyperlipidemia * Hypertension * DM * Critical Left Limb ischemia - s/p Vascular Pass (12/2022) Plans: * 88 yo woman * presenting with Chest Pain * CP - constant -pattern not consistent with ACS * Very mildly elevated Troponin * CTA - no PE - + Large Left Pleural Effusion * + Discomfort on palpation of ribs - PE not consistent with ACS * Consider transition to PO diuretics - Torsemide 40 mg po per day * No evidence of significant volume overload on examination * No evidence of ischemia or pericarditis on EKG * ECHOcardiogram - LVEF 55-60%, Normal RV function, AI - mild, MR - mild- no major pericardial * Stop Colchicine - treated adequately for pericarditis * Pt s/p Thoracentesis - with improvement of dyspnea/tachypnea - pleural fluid sent for analysis * DOAC - on hold; would resume when deemed appropriate post Thoracentesis * Chest Pain - likely musculoskeletal - Consider lidocaine patch * SBP at goal - 108 mmHg (Goal SBP 120 mmHg) * + Afib - HR controlled (87 BPM) * Consider MADALYN or ARB given DM + HTN - IF/WHEN BP TOLERATES * Rx of possible LE cellulitis * Please call back with any additional questions Gerhard Rouse Subjective Patient seen and examined. Chart, medications, telemetry reviewed. Feels quite a bit better today. Chest pain has improved. Breathing is a lot better following left-sided thoracentesis. Legs feel less angry. Telemetry: Atrial fibrillation currently 86 bpm, heart rates predominantly in the 80s and 90s, with occasional PVC or aberrant conduction. Resting echocardiography on August 01, 2023 was technically limited, revealing normal systolic function, EF 55 to 60%, normal RV function, mild aortic regurgitation without significant stenosis by Doppler, and mild mitral regurgitation. Review of Systems Review of Systems: Complete Review of Systems is as stated above, negative, or noncontributory. Physical Exam Physical Exam: General: A&Ox3. NAD. HENT: Normocephalic. Atraumatic. Eyes: PER. Conjunctiva pink, sclera pale. Neck: JVD. Heart: Irregularly irregular. No murmur appreciated. Lungs: Diminished. Decreased at the bases. No wheeze. Abdomen: +BS. Soft. Nontender. No masses or organomegaly. Extremities: Considerably improved erythema. Mild edema. No clubbing. no cyanosis. Limited neurological examination is without focal deficits. Pulses: radial=2/4, posterior tibial=0/4. Results & Data Vital Signs (Past 12 Hours) Vital Signs Temp Pulse Pulse Resp BP Pulse Ox O2 Del Method 08/02/23 11:15 36.6 C 87 18 108/73 96 Nasal Cannula 08/02/23 08:30 Nasal Cannula 08/02/23 07:49 36.5 C 93 H 22 120/67 97 Nasal Cannula 08/02/23 07:17 93 H 08/02/23 02:58 36.5 C 87 16 126/77 98 Nasal Cannula O2 Flow Rate 08/02/23 11:15 4 08/02/23 08:30 4 08/02/23 07:49 4 08/02/23 07:17 08/02/23 02:58 Laboratory Results Cardiac Enzymes 08/02/23 Range/Units 11:13 Lactate Dehydrogenase 122 (86-244) U/L CBC 08/02/23 Range/Units 06:49 WBC 7.70 (4.8-10.8) K/ul RBC 4.12 L (4.20-5.40) M/uL Hgb 11.1 L (12.0-16.0) g/dl Hct 34.8 L (37.0-47.0) % Plt Count 116 L (130-400) K/uL Neut # (Auto) 5.02 (1.40-6.50) K/uL Lymph # (Auto) 1.71 (1.20-3.40) K/uL [place] # (Auto) 0.83 H (0.11-0.59) K/uL Eos # (Auto) 0.10 (0.00-0.50) K/uL Baso # (Auto) 0.01 (0.00-0.20) K/uL Comprehensive Metabolic Panel 08/02/23 08/02/23 Range/Units 06:49 11:13 Sodium 140 (136-145) mmol/L Potassium 4.0 (3.5-5.1) mmol/L Chloride 102 (98-107) mmol/L Carbon Dioxide 33 H (21-32) mmol/L BUN 24 H (6-23) mg/dl Creatinine 0.96 (0.6-1.2) mg/dl Glucose 133 H (70-99(Fasting)) mg/dl Calcium 8.7 (8.6-10.3) mg/dl Total Protein 6.0 (6.0-8.3) gm/dl Intake and Output 08/01/23 08/02/23 08/02/23 22:59 06:59 14:59 Intake Total 480 / 680 50 / 680 600 / 600 Output Total 600 / 900 300 / 900 Balance -120 / -220 -250 / -220 600 / 600 Intake: IV 50 / 100 cefTRIAXone SODIUM 1,000 mg In 50 / 100 Dextrose 5 % Mini-B 50 ml @ 100 mls/hr IV Q24H [facility] Rx#: [id number] Oral 480 / 580 600 / 600 Output: Urine Amount (Catheter) 600 / 900 300 / 900 Lam/Indwelling 600 / 900 300 / 900 Other: Weight 60.8 kg Weight Measurement Method Standing Scale Medications Administered Current Inpatient Medications Acetaminophen (Acetaminophen 325 Mg Tab) 650 mg PO Q4H PRN PRN Reason: Pain or Fever Stop: 08/31/23 05:38 Apixaban (Apixaban 5 Mg Tablet) 5 mg PO BID [facility] Stop: 08/31/23 08:59 Last Admin: 08/01/23 09:34 Dose: 5 mg Atorvastatin Calcium (Atorvastatin 40 Mg Tab) 40 mg PO HS BLAINE Stop: 08/31/23 20:59 Last Admin: 08/01/23 19:53 Dose: 40 mg Dextrose (Dextrose 50% 50 Ml Syringe) 25 - 50 ml IV UD PRN; Protocol PRN Reason: Hypoglycemia Protocol Stop: 08/31/23 05:38 Furosemide (Furosemide 40 Mg/4 Ml Vial) 40 mg IV [id number] [facility] Stop: 08/31/23 16:59 Last Admin: 08/02/23 08:21 Dose: 40 mg Glucagon (Glucagon For Inj 1 Mg Vial) 1 mg SQ UD PRN; Protocol PRN Reason: Hypoglycemia Protocol Stop: 08/31/23 05:38 Glucose (Glucose 10 Tab/Tube) 4 - 8 tab PO UD PRN; Protocol PRN Reason: Hypoglycemia Treatment Stop: 08/31/23 05:38 Glucose (Glucose 40% Gel 15 Gm Tube) 15 - 30 gm PO UD PRN; Protocol PRN Reason: Hypoglycemia Protocol Stop: 08/31/23 05:38 Ceftriaxone Sodium 1,000 mg/ (Dextrose) 50 mls @ 100 mls/hr IV Q24H [facility]INE; Protocol Stop: 08/08/23 05:59 Last Infusion: 08/02/23 06:12 Dose: Infused Insulin Aspart (Insulin Aspart Per Unit Charge) 0 units SC ACHS [facility] Stop: 08/31/23 07:29 Last Admin: 08/02/23 12:04 Dose: 3 units Metoprolol Succinate (Metoprolol Succ 25mg Ext Rel Tab) 12.5 mg PO DAILY [facility] Stop: 08/31/23 08:59 Last Admin: 08/02/23 08:22 Dose: 12.5 mg Miscellaneous (Carbohydrates For Hypoglycemia ) 15 - 30 gm PO UD PRN PRN Reason: Hypoglycemia Protocol Stop: 08/31/23 05:38 Nitroglycerin (Nitroglycerin Sl 0.4 Mg/Tab Tab) 0.4 mg SL Q5M PRN PRN Reason: Chest Pain Stop: 08/31/23 05:38 Pantoprazole Sodium (Pantoprazole 40 Mg Tab) 40 mg PO DAILY [facility] Stop: 08/31/23 08:59 Last Admin: 08/02/23 08:22 Dose: 40 mg Polyethylene Glycol (Polyethylene (Miralax) 17 Gm Pack) 17 gm PO DAILY PRN PRN Reason: Constipation Stop: 08/31/23 05:38 Pregabalin (Pregabalin 150 Mg Cap) 150 mg PO BID [facility] Stop: 08/31/23 08:59 Last Admin: 08/02/23 08:27 Dose: 150 mg (1) Chest pain Chest pain type: unspecified Qualified Code(s): R07.9 - Chest pain, unspecified (3) Diastolic heart failure Heart failure chronicity: acute on chronic Qualified Code(s): I50.33 - Acute on chronic diastolic (congestive) heart failure
[2023-08-02] MEDS: ATORVASTATIN 40 MG TAB PO SCH (20:40)
--- OUTSIDE RECORDS SUMMARY | 2023-08-03 00:08 | External Medical Summary ---
Author Name Unknown Address Unknown Organization [id number]:[facility] - [address] [place] [address] Laboratory Report Ordering Provider Test Date Status MATTEO AVILES 07/30/2023 02:28:41 Final Collect 1 HOUR Observation Date Value Abnormality Reference (Units ) Status Troponin T 07/30/2023 02:28:41 17 Above high normal < =14 (ng/L) Final Performing Location [facility] - [address] [place] [id number]
--- OUTSIDE RECORDS SUMMARY | 2023-08-03 00:08 | External Medical Summary | Summary of Care ---
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 [facility] What body part is the patient being seen for? Foot/Ankle/Calf - Right thakur What condition is the patient being seen for? Wound Comments Diabetic with wound anterior right lower leg, seen for chest pain at ER visit July 30, 2023, wound incidentally noted, patient and relatives at bedside say they feel there has been progress although slow. Discharge Order Reason for Visit * Reason Comments Chest Pain * Auth/Cert Specialty Diagnoses / Procedures Referred By Albin hernandez Referred To Contact Referral ID Status Reason Start Date Expiration Date Visits Re quested Visits Authorized [id number] [phone] Encounter Details Date Type Department Care Team ([facility] Contact Info) Description 07/30/2023 1:10 AM EST - 07/30/2023 6:32 AM EST Emergency [facility] Emergency Department ([facility]) [address] [place] [address] Yeison Lance MD [address] [place] [id number] Chest pain, unspecified type (Primary Dx); Chest pain; 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) Discharge Disposition: Home - Self Care Allergies No known active allergiesdocumented as of this encounter (statuses as of 07/30/2023) Medications Medication Sig Dispensed Refills Start Date End Date Status NITROGLYCERIN 0.4 MG SL SUBLIndications:Hy popotassemia,Cardi ac arrest (HCC),INTERFACED RESULT,Respiratory failure, acute (HCC),Ventricular fibrillation (HCC),Acute non Q wave myocardial infarction (HCC),Dyslipidemia , goal LDL below 100,HTN, goal below 130/80,DM type 2, not at goal (HCC),Asthma, mild persistent,Electro lyte and fluid disorder 1 Tab Sublingual Every 5 minutes as needed for chest pain 30 Tab 3 12/08/2010 Active atorvaSTATin (LIPITOR) 40 MG Tablet Take 1 Tablet by mouth every evening. 0 Active ipratropium-albute rol (COMBIVENT RESPIMAT) 20-100 MCG/ACT Inhaler Inhale 1 Puff by mouth 4 times a day. 1 Inhaler 0 07/22/2018 Active Silver sulfADIAZINE 1 % External Cream Apply topically to affected area daily . Apply to BLE 0 Active Acetaminophen 325 MG Oral Tablet (Tylenol) Take by mouth 3 Tablets in the morning AND 3 Tablets at noon AND 3 Tablets before bedtime. 30 Tablet 0 03/04/2022 Active Jardiance 25 MG Oral Tablet Take 1 Tablet by mouth in the morning. 0 03/05/2022 Active Docusate Sodium 100 MG Oral Capsule (Colace) Take 1 Capsule by mouth 2 times a day as needed for Constipation. 10 Capsule 0 03/31/2022 Active Fluticasone Furoate-Vilanterol 200-25 MCG/ACT Inhalation Aerosol Powder Breath Activated Inhale 1 Puff by mouth in the morning. 60 Blister Dosing Unit 0 03/31/2022 Active Pregabalin 150 MG Oral Capsule (Lyrica) Take 1 Capsule by mouth in the morning and 1 Capsule before bedtime. 0 08/09/2022 Active TRUEplus Lancets 33G 0 07/02/2022 Active True Metrix Blood Glucose Test In Vitro Strip 0 08/30/2022 Active True Metrix Meter w/Device Kit 0 07/12/2022 Active Alendronate Sodium 70 MG Oral Tablet (Fosamax) Take 1 Tablet by mouth once a week. 0 08/14/2022 Active Aspirin 81 MG Oral Tablet Chewable CHEW AND SWALLOW ONE TABLET BY MOUTH IN THE MORNING. 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 30 Tablet 1 11/05/2022 4 Active Additional Information Patient taking differently: 0.6 mg Oral Daily(AM), Informant: Transferring Facility Documents, Child, Reported on 12/24/2022 Omeprazole 20 MG Oral Capsule Delayed Release (PriLOSEC) TAKE 1 CAPSULE BY MOUTH IN THE MORNING 30 Capsule 1 11/05/2022 4 Active Additional Information Patient taking differently: 20 mg Oral Daily(AM), Informant: Transferring Facility Documents, Child, Reported on 12/24/2022 Metoprolol Succinate ER 25 MG Oral Tablet Extended Release 24 Hour (Toprol XL) Take 0.5 Tablets by mouth in the morning. 30 Tablet 5 11/17/2022 Active traMADol HCl 50 MG Oral Tablet (Ultram) Take 1 Tablet by mouth every 6 hours as needed for Pain, Severe. 10 Tablet 0 12/24/2022 Active Apixaban 5 MG Oral Tablet (Eliquis)Indicatio ns:Persistent atrial fibrillation (HCC) TAKE 1 TABLET BY MOUTH 2 times daily 60 Tablet 3 01/27/2023 Active documented as of this encounter (statuses as of 07/30/2023) Active Problems Problem Noted Date Diagnosed Date Critical limb ischemia of le ft lower extremity with autologous bypass graft with rest pain 12/24/2022 Lip lesion 11/05/2022 Melena 11/05/2022 Acute viral pericarditis 11/03/2022 (HFpEF) heart failure with preserved ejection fr action 11/03/[address] elevation myocardial infarction (STEMI) 11/01/2022 Acute thoracic back pain 03/02/2022 Bilateral cellulitis of lower leg 01/30/2022 Hypokalemia 02/04/2020 Chronic anticoagulation 02/04/2020 Acute bronchitis, complicated 11/27/2018 Atrial fibrillation 11/24/2018 Acute on chronic diastolic heart failure 019 RLL pneumonia 12/02/2017 Automatic implantable cardioverter-defibrillator in situ 12/15/2010 Acute respiratory failure with hypoxia 1 Type 2 diabetes mellitus wit h hemoglobin A1c goal of less than 7.0% 11/24/2010 Overview: ICD-10 update of inactive term Asthma, mild persistent 11/24/2010 Hyperlipidemia Hypertension Takotsubo cardiomyopathy documented as of this encounter (statuses as of 07/30/2023) Resolved Problems Problem Noted Date Diagnosed Date Resolved Date Cardiac/pericardial tamponade 11/02/2022 11/05/2022 Hypoxemia 11/24/2018 11/27/2018 Cardiac arrest 11/24/2010 07/14/2011 Ventricular fibrillation 11/24/2010 Acute non Q wave myocardial infarction 11/24/2010 07/14/2011 HTN, goal below 130/80 11/24/201005/11 Overview: Per HTN Protocol #27. documented as of this encounter (statuses as of 07/30/2023) Immunizations Name Administration Dates Next Due Pneumococcal Polysaccharide PPV23 (Pneumovax) documented as of this encounter Social History Tobacco Use Types Packs/Day Years Used Date Smoking Tobacco: Never Smokeless Tobacco: Never Alcohol Use Standard Drinks/Week Comments No 0 (1 standard drink = 0.6 oz pur e alcohol) Sex and Gender Information Value Date Recorded Sex Assigned at Not on file Gender Identity Not on file Sexual Orientation Not on file Job Start Date Occupation Industry Not on file Not on file Not on file documented as of this encounter Last Filed Vital Signs Vital Sign Reading Time Taken Comments Blood Pressure 135/78 07/30/2023 6:00 AM EST Pulse 79 07/30/2023 6:00 AM EST Temperature 36.7 C (98.1 F) 07/30/2023 1:11 AM ES T Respiratory Rate 17 07/30/2023 6:00 AM EST Oxygen Saturation 95% 07/30/2023 6:00 AM EST Inhaled Oxygen Concentration - - Weight - - Height - - Body Mass Index - - documented in this encounter Functional Status Functional Status Response Date of Assess ment Are you deaf or do you have serious difficulty h earing? No 12/24/2022 Are you blind or do you have serious difficulty seeing, even when wearing glasses? No 12/24/2022 Do you have serious difficul ty walking or climbing stairs? (5 years old or older) No 12/24/2022 Do you have difficulty dress ing or bathing? (5 years old or older) No 12/24/2022 Because of a physical, menta l, or emotional condition, do you have difficulty doing errands alone such as visiting a doctor s office or shopping? (15 years old or older) No 12/25/19 Cognitive Status Response Date of Assessm ent Because of a physical, menta l, or emotional condition, do you have serious difficulty concentrating, remembering, or making decisions? (5 years old or older No 12/24/2022 documented as of this encounter Discharge Instructions * Discharge Instructions* Yeison Lance MD - 07/30/2023 6:15 AM EST The ER doctor could not find the reason that you are having chest pain although it did not look like it was a heart attack today. You may have gallstones, talk to her primary care about getting a gallbladder ultrasound done to see if you have gallstones or not. You also have an ulcer on your right lower leg, you should go to wound clinic to get that checked. To your primary care this week to review recent symptoms and test results. Back to ER if any warning signs or problems. documented in this encounter ED Notes * Lidia Rodriguez RN - 07/30/2023 1:13 AM EST ALS report: Pt woke up with a sharp pain in her left lateral chest. EMS reports that the pain is not reproducible, but that she does also have a cough. Pt reports that she previously had issues with her pacemaker shocking her, pt states "they had it turned up to high." Pt states that this does not feel the same. 324 mg aspirin and 1 nitro given en route, 20 gauge PIV in left hand. documented in this encounter Miscellaneous Notes * Pt Handout (on AVS) - Yeison Lance MD - 07/30/2023 6:10 AM EST Images from the original note were not included. [id number] Uncertain Causes of Chest Pain Chest pain can happen for a number of reasons. Sometimes the cause can't be determined. If your condition does not seem serious, and your pain does not appear to be coming from your heart, your healthcare provider may recommend watching it closely. Sometimes the signs of a serious problem take moretime to appear. Many problems not related to your heart can cause chest pain. These include: Musculoskeletal. Costochondritis is an inflammation of the tissues around the ribs that can occur from trauma or overuse injuries, or a strain of the muscles of the chest wall. Respiratory. Pneumonia, collapsed lung (pneumothorax), or inflammation of the lining of the chest and lungs (pleurisy). Gastrointestinal. Esophageal reflux, heartburn, ulcers, or gallbladder disease. Anxiety and panic disorders Nerve compression and inflammation Rare problems such as aortic aneurysm or aortic dissection (a swelling of the large artery coming out of the heart or a tear in the wall of the artery), or pulmonary embolism (a blood clot in the lungs). Home care After your visit, follow these recommendations: Rest today and avoid strenuous activity. Take any prescribed medicine as directed. Be aware of any recurrent chest pain and notice any changes Follow-up care Follow up with your healthcare provider if you don't start to feel better within 24 hours, or as advised. Call 911 Call 911 if any of these occur: A change in the type of pain: if it feels different, becomes more severe, lasts longer, or begins to spread into your shoulder, arm, neck, jaw or back Shortness of breath or increased pain with breathing Weakness, dizziness, or fainting Rapid heartbeat Crushing sensation in your chest Coughing up more than a small amount of blood. When to seek medical advice Call your healthcare provider right away if any of the following occur: Cough with dark colored sputum (phlegm) or small amount of blood Fever of 100.4F (38C) or higher, or as directed by your healthcare provider Swelling, pain or redness in one leg Last Reviewed Date: 09/19/202119991712-8451 [employer]. All rights reserved. This information is not intended as a substitute for professional medical care. Always follow your healthcare professional's instructions. * ED Medical Surgical Tech Note - Teresa Ruby RN - 07/30/2023 4:25 AM EST Interrogated patients defibrillator, medtronic. * ED Medical Surgical Tech Note - Teresa Ruby RN - 07/30/2023 1:36 AM EST Patient is here due to left sided chest pain that woke her up. Patient has also been coughing recently which produces nelson mucous. Patient denies any N/V/D/C. Breath sounds were notable for slight expiratory wheeze and diminished on the left side and diminished but clear on the right side. Breathing is unlabored and equal. Patient states she is slightly short of breath. Peripheral pulses are present in all extremities and pedal pulses were found using a doppler. Patient has bilateral warmth, redness and non pitting edema in her lower legs. There is a seeping wound on the right side that the patient has covered with a bandage. Patient states she has been seeing a doctor for it but seems to go back and forth with it improving or getting worse. Statesthey have been treating the redness for a while now. Patient is overall well appearing and in good spirits. Call jean baptiste in reach, denies other needs, no signs of acute distress at this moment documented in this encounter Plan of Treatment Upcoming Encounters Date Type Department Care Team (Late st Contact Info) Description 10/11/2023 9:30 AM EST Office Visit Cardiology Raad Cash [address] [place] [address] Akhil Quintero DO [address] [place] [address] 04/04/2024 9:00 AM EDT Cardiac Studies Cardiology Raad Cash [address] [place] [address] [facility] [address] [place] [address] Scheduled Referrals Name Type Priority Associated Diagnoses Order Schedule ORTHOPAEDICS REFERRAL OP Referral Within 10 days (routine) 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) Ordered: 07/30/2023 Health Maintenance Due Date Last Done Comments COVID-19 Vaccine (#1) 1937 Depression Screening 1949 Diabetic Foot Exam 1955 DTaP,Tdap,and Td Vaccines (1 - Tdap) 01/22/1956 Zoster Vaccines (1 of 2) 1987 Hepatitis B (1 of 3 - Risk 3-dose series) 1997 Pneumococcal Vaccine: 65+ Years (2 - PCV) 12/04/2011 12/03/2010 Albumin/Creatinine Ratio 12/03/2015 12/02/2014 *SPIROMETRY ONCE FOR ASTHMA-ADULT 11/07/2016 HbA1c 05/02/2023 11/02/2022, 09/20, 01/31/2022, Additional history exists Influenza Vaccine (FLU shot) (#1) 2023 Diabetic Eye Exam 09/07/2023 09/07/2022, , 09/07/2022, Additional history exists DXA Scan 05/31/2029 05/31/2022, 05/22/2019 GARDASIL-HPV IMMUNIZATION SERIES Aged Out No longer eligible based on patient's age to complete this topic MENINGOCOCCAL (MENACTRA/MENVEO) Aged Out No longer eligible based on patient's age to complete this topic documented as of this encounter Medical Devices Implanted Type Area Filter Press Supervisor Device Identifier Shelf Expiration Date Model / Serial / Lot Lens 21.0 [employer] - [id number] - [id number] Implanted:Qty: 1 on 01/28/2023 by Christian Woo DO at OR [facility] Lens Right: Eye [employer] 10/12/2025 [id number] / [id number] / Lens 20.5 [employer] - [id number] - [id number] Implanted:Qty: 1 on 01/04/2023 by Christian Woo DO at OR [facility] Left: Eye [employer] 07/15/2025 [id number] / [id number] / documented as of this encounter Procedures Procedure Name Priority Date/Time Associated Diagnosis Comments TROPONIN T, HIGH SENSITIVITY STAT 07/30/2023 4:31 AM EST XR CHEST 1 VIEW STAT 07/30/2023 4:23 AM EST XR CHEST 2 VIEWS STAT 07/30/2023 2:47 AM EST TROPONIN T, HIGH SENSITIVITY STAT 07/30/2023 2:28 AM EST LIPASE Add-on 07/30/2023 2:28 AM EST EXTRA LIGHT BLUE TOP STAT 07/30/2023 1:33 AM EST DIFFERENTIAL, AUTOMATED STAT 07/30/2023 1:33 AM EST TROPONIN T, HIGH SENSITIVITY STAT 07/30/2023 1:33 AM EST COMPREHENSIVE METABOLIC PANEL STAT 07/30/2023 1:33 AM EST CBC STAT 07/30/2023 1:33 AM EST CBC STAT 07/30/2023 1:33 AM EST documented in this encounter Results * (ABNORMAL) TROPONIN T, HIGH SENSITIVITY (07/30/2023 4:31 AM EST) Troponin T, High Sensitivity 15(H) <=14 ng/L 07/30/2023 4:57 AM EST LABORATORY [facility] Blood Venous blood specimen / Unknown Venipuncture / Unknown 07/30/2023 4:31 AM EST 07/30/2023 4:33 AM EST Yeison Lance MD LAB BLOOD ORDER [facility] [address] [address] * XR CHEST 1 VIEW (07/30/2023 4:23 AM EST) Anatomical Region Laterality Modality Chest Digital Radiogra phy 07/30/2023 4:16 AM EST Impressions 07/30/2023 4:31 AM EST IMPRESSION: No evidence of an acute cardiopulmonary process. There is improved aeration at the right base. THIS DOCUMENT HAS BEEN ELECTRONICALLY SIGNED BY JAIME OTERO MD Narrative 07/30/2023 4:31 AM EST PROCEDURE INFORMATION: Exam: XR Chest Exam date and time: 07/30/2023 4:16 AM Age: 88 years old Clinical indication: Other: Chest pain TECHNIQUE: Imaging protocol: Radiologic exam of the chest. Views: 1 view. COMPARISON: DX XR CHEST 2 VIEWS 07/30/2023 2:32 AM FINDINGS: Tubes, catheters and devices: Left defibrillator is stable. Lungs: No consolidation. There is improved aeration at the right base. Pleural spaces: No pleural effusion. No pneumothorax. Heart/Mediastinum: Unremarkable. No cardiomegaly. Bones/joints: Unremarkable. Procedure Note Jaime Otero MD - 07/30/2023 PROCEDURE INFORMATION: Exam: XR Chest Exam date and time: 07/30/2023 4:16 AM Age: 88 years old Clinical indication: Other: Chest pain TECHNIQUE: Imaging protocol: Radiologic exam of the chest. Views: 1 view. COMPARISON: DX XR CHEST 2 VIEWS 07/30/2023 2:32 AM FINDINGS: Tubes, catheters and devices: Left defibrillator is stable. Lungs: No consolidation. There is improved aeration at the right base. Pleural spaces: No pleural effusion. No pneumothorax. Heart/Mediastinum: Unremarkable. No cardiomegaly. Bones/joints: Unremarkable. IMPRESSION IMPRESSION: No evidence of an acute cardiopulmonary process. There is improvedaeration at the right base. THIS DOCUMENT HAS BEEN ELECTRONICALLY SIGNED BY JAIME OTERO MD Yeison Lance MD RADIOLOGY ([facility]) * XR CHEST 2 VIEWS (07/30/2023 2:47 AM EST) Anatomical Region Laterality Modality Chest Digital Radiogra phy 07/30/2023 2:32 AM EST Impressions 07/30/2023 3:26 AM EST IMPRESSION: Mild atelectasis versus early infiltrate in the right lower lobe. THIS DOCUMENT HAS BEEN ELECTRONICALLY SIGNED BY JAIME OTERO MD Narrative 07/30/2023 3:26 AM EST PROCEDURE INFORMATION: Exam: XR Chest Exam date and time: 07/30/2023 2:32 AM Age: 88 years old Clinical indication: Other: Chest pain starting tonight; PT states HX of issues with pacemaker TECHNIQUE: Imaging protocol: Radiologic exam of the chest. Views: 2 views. COMPARISON: DX XR CHEST 1 VIEW 03/25/2023 7:31 PM FINDINGS: Tubes, catheters and devices: There is a left defibrillator which is stable. Lungs: There is a mild patchy airspace density in the right lower lobe. Pleural spaces: No pleural effusion. No pneumothorax. Heart/Mediastinum: Heart size and vascularity is unchanged. Bones/joints: Unremarkable. Other findings: Please note that the frontal view is mislabeled right and left. this is confirmed with multiple prior studies. Procedure Note Jiame Otero MD - 07/30/2023 PROCEDURE INFORMATION: Exam: XR Chest Exam date and time: 07/30/2023 2:32 AM Age: 88 years old Clinical indication: Other: Chest pain starting tonight; PT states HX ofissues with pacemaker TECHNIQUE: Imaging protocol: Radiologic exam of the chest. Views: 2 views. COMPARISON: DX XR CHEST 1 VIEW 03/25/2023 7:31 PM FINDINGS: Tubes, catheters and devices: There is a left defibrillator which isstable. Lungs: There is a mild patchy airspace density in the right lower lobe. Pleural spaces: No pleural effusion. No pneumothorax. Heart/Mediastinum: Heart size and vascularity is unchanged. Bones/joints: Unremarkable. Other findings: Please note that the frontal view is mislabeled right andleft. this is confirmed with multiple prior studies. IMPRESSION IMPRESSION: Mild atelectasis versus early infiltrate in the right lower lobe. THIS DOCUMENT HAS BEEN ELECTRONICALLY SIGNED BY JAIME OTERO MD Yeison Lance MD RADIOLOGY ([facility]) * LIPASE (07/30/2023 2:28 AM EST) Pathologist [facility] Lipase 18 13 - 60 U/L 07/30/2023 4:20 AM EST LABORATORY [facility] Blood Venous blood specimen / Unknown Venipuncture / Unknown 07/30/2023 2:28 AM EST 07/30/2023 2:31 AM EST Yeison Lance MD LAB BLOOD ORDER [facility] [address] [address] * (ABNORMAL) TROPONIN T, HIGH SENSITIVITY (07/30/2023 2:28 AM EST) Pathologist [facility] Troponin T, High Sensitivity 17(H) <=14 ng/L 07/30/2023 2:53 AM EST LABORATORY [facility] Blood Venous blood specimen / Unknown Venipuncture / Unknown 07/30/2023 2:28 AM EST 07/30/2023 2:31 AM EST Yeison Lance MD LAB BLOOD ORDER [facility] [address] [place] [address] * (ABNORMAL) DIFFERENTIAL, AUTOMATED (07/30/2023 1:33 AM EST) WBC 9.82 4.00 - 10.80 K/uL 07/30/2023 1:45 AM EST LABORATORY [facility] Neutrophils % 75.6(H) 40.0 - 75.0 % 07/30/2023 1:45 AM EST LAB[facility]ATORY [facility] Lymphocytes % 15.0(L) 18.0 - 42.0 % 07/30/2023 1:45 AM EST LAB[facility]ATORY [facility] Monocytes % 8.4 1.0 - 11.0 % 07/30/2023 1:45 AM EST LAB[facility]ATORY [facility] Eosinophils % 0.7 0.0 - 6.0 % 07/30/2023 1:45 AM EST LAB[facility]ATORY [facility] Basophils % 0.1 0.0 - 2.0 % 07/30/2023 1:45 AM EST LAB[facility]ATORY [facility] Immature Granulocytes % 0.2 0.0 - 2.0 % 07/30/2023 1:45 AM EST LAB[facility]ATORY [facility] Absolute Neutrophils 7.43 1.80 - 7.70 K/uL 07/30/2023 1:45 AM EST LAB[facility]ATORY [facility] Absolute Lymphocytes 1.47 1.00 - 4.80 K/ul 07/30/2023 1:45 AM EST LAB[facility]ATORY [facility] Absolute Monocytes 0.82 0.00 - 1.10 K/uL 07/30/2023 1:45 AM EST LAB[facility]ATORY [facility] Absolute Eosinophils 0.07 0.00 - 0.70 K/uL 07/30/2023 1:45 AM EST LAB[facility]ATORY [facility] Absolute Basophils 0.01 0.00 - 0.20 K/uL 07/30/2023 1:45 AM EST LAB[facility]ATORY [facility] Absolute Immature Granulocytes 0.02 0.00 - 0.20 K/uL 07/30/2023 1:45 AM EST LAB[facility]ATORY [facility] Blood Venous blood specimen / Unknown Venipuncture / Unknown 07/30/2023 1:33 AM EST 07/30/2023 1:37 AM EST Yeison Lance MD LAB BLOOD ORDER [facility] [address] [address] * CBC (07/30/2023 1:33 AM EST) WBC 9.82 4.00 - 10.80 K/uL 07/30/2023 1:45 AM EST LABORATORY GL RBC 5.19 3.85 - 5.15 M/uL 07/30/2023 1:45 AM EST LABORATORY [facility] HGB 14.1 12.0 - 15.3 g/dL 07/30/2023 1:45 AM EST LABORATORY GL HCT 44.5 36.0 - 45.2 % 07/30/2023 1:45 AM EST LABORATORY GL MCV 85.7 81.5 - 97.5 fL 07/30/2023 1:45 AM EST LABORATORY [facility] MCH 27.2 27.0 - 34.0 pg 07/30/2023 1:45 AM EST LABORATORY [facility] MCHC 31.7 32.0 - 36.0 g/dL 07/30/2023 1:45 AM EST LABORATORY [facility] RDW 16.2 11.5 - 15.5 % 07/30/2023 1:45 AM EST LABORATORY GL PLT 147 140 - 400 K/uL 07/30/2023 1:45 AM EST LABORATORY [facility] MPV 11.3 6.6 - 11.1 fL 07/30/2023 1:45 AM EST LABORATORY GL nRBCs 0 <=0 /100 WBCs 07/30/2023 1:45 AM EST LABORATORY GL Blood Venous blood specimen / Unknown Venipuncture / Unknown 07/30/2023 1:33 AM EST 07/30/2023 1:37 AM EST Yeison Lance MD LAB BLOOD ORDER [facility] [address] [address] * EXTRA LIGHT BLUE TOP (07/30/2023 1:33 AM EST) Blood Venous blood specimen / Unknown Venipuncture / Unknown 07/30/2023 1:33 AM EST 07/30/2023 1:36 AM EST Yeison Lance MD LAB BLOOD ORDER [facility] [address] [address] * (ABNORMAL) TROPONIN T, HIGH SENSITIVITY (07/30/2023 1:33 AM EST) Troponin T, High Sensitivity 17(H) <=14 ng/L 07/30/2023 1:58 AM EST LABORATORY [facility] Blood Venous blood specimen / Unknown Venipuncture / Unknown 07/30/2023 1:33 AM EST 07/30/2023 1:37 AM EST Yeison Lance MD LAB BLOOD ORDER [facility] Performing Organization Address City/[facility]/ZIP Co de Phone Number LABORATORY [address] [address] * (ABNORMAL) COMPREHENSIVE METABOLIC PANEL (07/30/2023 1:33 AM EST) BUN 18 6 - 20 mg/dL 07/30/2023 2:08 AM EST LABORATORY [facility] Creatinine 0.9 0.5 - 1.0 mg/dL 07/30/2023 2:08 AM EST LAB[facility]ATORY [facility] Estimated Glomerular Filtration Rate 60 >=60 mL/min 07/30/2023 2:08 AM EST LAB[facility]ATORY [facility] Comment:eGFR is calculated b ased on the CKD-EPI 2020 equation Sodium 140 135 - 146 mmol/L 07/30/2023 2:08 AM EST LAB[facility]ATORY [facility] Potassium 4.1 3.5 - 5.1 mmol/L 07/30/2023 2:08 AM EST LAB[facility]ATORY [facility] Chloride 102 98 - 107 mmol/L 07/30/2023 2:08 AM EST LAB[facility]ATORY [facility] CO2 30 22 - 32 mmol/L 07/30/2023 2:08 AM EST LAB[facility]ATORY [facility] Anion Gap 8 7 - 15 mmol/L 07/30/2023 2:08 AM EST LAB[facility]ATORY [facility] Glucose 168(H) 70 - 120 mg/dL 07/30/2023 2:08 AM EST LAB[facility]ATORY [facility] Albumin 3.7(L) 3.8 - 5.0 g/dL 07/30/2023 2:08 AM EST LAB[facility]ATORY [facility] AST 21 10 - 35 U/L 07/30/2023 2:08 AM EST LAB[facility]ATORY [facility] Alkaline Phosphatase 77 35 - 130 U/L 07/30/2023 2:08 AM EST [facility] Bilirubin, Total 1.1 <=1.2 mg/dL 07/30/2023 2:08 AM EST LAB[facility]ATORY [facility] Calcium 9.9 8.4 - 10.2 mg/dL 07/30/2023 2:08 AM EST [facility] Protein 6.5 6.0 - 8.3 g/dL 07/30/2023 2:08 AM EST [facility] ALT 13 10 - 35 U/L 07/30/2023 2:08 AM EST [facility] Blood Venous blood specimen / Unknown Venipuncture / Unknown 07/30/2023 1:33 AM EST 07/30/2023 1:37 AM EST Yeison Lance MD LAB BLOOD ORDER [facility] [address] [place] [address] documented in this encounter Visit Diagnoses Diagnosis Chest pain, unspecified type- Primary Chest pain Chest pain, unspecified 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 Question Answer Comments Discussion of Advance Directives occurred with: Not Discussed due to patient's condition Full Code 11/01/2022 10:17 PM 11/05/2022 8:21 PM This order reflects the patients wishes and were consensually agreed upon. Question Answer Comments Discussion of Advance Directives occurred with: Not Discussed due to patient's condition No Code 03/02/2022 9:40 PM 03/04/2022 5:44 PM This order reflects the patients wishes and were consensually agreed upon. Question Answer Comments Discussion of Advance Directives occurred with: Patient No Code 01/30/2022 6:01 PM 02/02/2022 5:29 PM This order reflects the patients wishes and were consensually agreed upon. Question Answer Comments Discussion of Advance Directives occurred with: Patient/Family Does the patient have a Living Will? No Does the patient have Health Care Power of Rn Birthing? No Care Teams Photographer Aerial Relationship Specialty Start Date End Date Isrrael Bolivar DO [address] [place] [address] PCP - General Family Medicine 11/24/10 documented as of this encounter
--- OUTSIDE RECORDS SUMMARY | 2023-08-03 00:08 | External Medical Summary ---
Author Name Unknown Address Unknown Organization K1F:LABORATORY [facility] - [address] [facility] [place] [address] Laboratory Report Ordering Provider Test Date Status SUSANNA AVILESPhoebeERNESTO 07/30/2023 01:33:03 Final Observation Date Value Abnormality Reference (Units ) Status SYNC LEUKOCYTES IN BLOOD BY AUTOMATED COUNT 07/30/2023 01:33:03 9.82 4.00-10.80 (K/uL) Final Segs 07/30/2023 01:33:03 75.6 Above high normal 40.0-75.0 (%) Final Lymphs % 07/30/2023 01:33:03 15.0 Below low normal 18.0-42.0 (%) Final Monos 07/30/2023 01:33:03 8.4 1.0-11.0 (%) Final Eosinophils 07/30/2023 01:33:03 0.7 0.0-6.0 (%) Final Basos 07/30/2023 01:33:03 0.1 0.0-2.0 (%) Final Immature Granulocyte, Percent 07/30/2023 01:33:03 0.2 0.0-2.0 (%) Final Absolute Segs 07/30/2023 01:33:03 7.43 1.80-7.70 (K/uL) Final Lymphs, absolute 07/30/2023 01:33:03 1.47 1.00-4.80 (K/ul) Final Monos, Abs 07/30/2023 01:33:03 0.82 0.00-1.10 (K/uL) Final Eos, Abs 07/30/2023 01:33:03 0.07 0.00-0.70 (K/uL) Final Basos, Abs 07/30/2023 01:33:03 0.01 0.00-0.20 (K/uL) Final Immature Granulocytes, Number 07/30/2023 01:33:03 0.02 0.00-0.20 (K/uL) Final Performing Location LABORATORY [address] [place] [address]
--- OUTSIDE RECORDS SUMMARY | 2023-08-03 00:08 | External Medical Summary ---
Author Name Unknown Address Unknown Organization K1F:LABORATORY [facility] - [address] [facility] [place] [address] Laboratory Report Ordering Provider Test Date Status MATTEO AVILES 07/30/2023 01:33:03 Final Observation Date Value Abnormality Reference (Units ) Status BUN 07/30/2023 01:33:03 18 6-20 (mg/dL) Final Creatinine 07/30/2023 01:33:03 0.9 0.5-1.0 (mg/dL) Final Glomerular filtration rate/1.73 sq M.predicted [Volume Rate/Area] in Serum, Plasma or Blood by Creatinine-based formula (CKD-EPI) 07/30/2023 01:33:03 60 >=60 (mL/min) Final eGFR is calculated based on the CKD-EPI 2020 equation SODIUM 07/30/2023 01:33:03 140 135-146 (m mol/L) Final Potassium 07/30/2023 01:33:03 4.1 3.5-5.1 (m mol/L) Final Cl 07/30/2023 01:33:03 102 98-107 (mm ol/L) Final CO2 07/30/2023 01:33:03 30 22-32 (mmo l/L) Final Anion gap 07/30/2023 01:33:03 8 7-15 (mmol /L) Final Glucose 07/30/2023 01:33:03 168 Above high normal 70 -120 (mg/dL) Final Albumin 07/30/2023 01:33:03 3.7 Below low normal 3.8 -5.0 (g/dL) Final AST (Aspartate aminotransferase) 07/30/2023 01:33:03 21 10-35 (U/L) Fin al Alk Phos 07/30/2023 01:33:03 77 35-130 (U/ L) Final Bilirubin, Total 07/30/2023 01:33:03 1.1 <=1 .2 (mg/dL) Final Calcium 07/30/2023 01:33:03 9.9 8.4-10.2 ( mg/dL) Final Protein 07/30/2023 01:33:03 6.5 6.0-8.3 (g /dL) Final ALT (Alanine aminotransferase) 07/30/2023 01:33:03 13 10-35 (U/L) Kishan gao Performing Location LABORATORY [facility] - [address] [place] [address] [place] [address]
--- OUTSIDE RECORDS SUMMARY | 2023-08-03 00:08 | External Medical Summary ---
Author Name Unknown Address Unknown Organization K1F:LABORATORY [facility] - [address] [place] [address] Laboratory Report Ordering Provider Test Date Status MATTEO AVILES 07/30/2023 02:28:41 Final Observation Date Value Abnormality Reference (Units ) Status Lipase 07/30/2023 02:28:41 18 13-60 (U/L ) Final Performing Location LABORATORY [facility] - [address] [place] [address]
--- OUTSIDE RECORDS SUMMARY | 2023-08-03 00:08 | External Medical Summary ---
Author Name Unknown Address Unknown Organization K1F:LABORATORY [facility] - [address] [place] [address] Laboratory Report Ordering Provider Test Date Status MATTEO AVILES 07/30/2023 04:31:11 Final Observation Date Value Abnormality Reference (Units ) Status Troponin T 07/30/2023 04:31:11 15 Above high normal < =14 (ng/L) Final Performing Location LABORATORY [facility] - [address] [place] [address]
--- OUTSIDE RECORDS SUMMARY | 2023-08-03 00:08 | External Medical Summary ---
Author Name Unknown Address Unknown Organization K1F:LABORATORY [facility] - [address] [place] [address] Laboratory Report Ordering Provider Test Date Status MATTEO AVILES 07/30/2023 01:33:03 Final Observation Date Value Abnormality Reference (Units ) Status WBC, Total 07/30/2023 01:33:03 9.82 4.00-10.80 (K/uL) Final RBC 07/30/2023 01:33:03 5.19 3.85-5.15 (M/uL) Final Hemoglobin 07/30/2023 01:33:03 14.1 12.0-15.3 (g/dL) Final HCT 07/30/2023 01:33:03 44.5 36.0-45.2 (%) Final MCV 07/30/2023 01:33:03 85.7 81.5-97.5 (fL) Final MCH 07/30/2023 01:33:03 27.2 27.0-34.0 (pg) Final MCHC 07/30/2023 01:33:03 31.7 32.0-36.0 (g/dL) Final RDW 07/30/2023 01:33:03 16.2 11.5-15.5 (%) Final Platelets 07/30/2023 01:33:03 147 140-400 (K/uL) Final MPV 07/30/2023 01:33:03 11.3 6.6-11.1 (fL) Final Nucleated erythrocytes/100 leukocytes [Ratio] in Blood by Automated count 07/30/2023 01:33:03 0 <=0 (/100 WBCs) Final Performing Location LABORATORY [facility] - [address] [place] [address]
--- OUTSIDE RECORDS SUMMARY | 2023-08-03 00:09 | External Medical Summary ---
Author Name Unknown Address Unknown Organization K1F:LABORATORY [facility] - [address] [place] [address] Laboratory Report Ordering Provider Test Date Status PANCHITO SHANE 06/06/2023 18:25:00 Final Observation Date Value Abnormality Reference (Units ) Status CK 06/06/2023 18:25:00 96 26-192 (U/ L) Final Performing Location LABORATORY [facility] - [address] [place] [address]
--- OUTSIDE RECORDS SUMMARY | 2023-08-03 00:09 | External Medical Summary ---
Author Name Unknown Address Unknown Organization K1F:LABORATORY [facility] - [address] [facility] [place] [address] Laboratory Report Ordering Provider Test Date Status PANCHITO SHANE 06/06/2023 18:25:00 Final Observation Date Value Abnormality Reference (Units ) Status SYNC LEUKOCYTES IN BLOOD BY AUTOMATED COUNT 06/06/2023 18:25:00 5.50 4.00-10.80 (K/uL) Final Segs 06/06/2023 18:25:00 58.3 40.0-75.0 (%) Final Lymphs % 06/06/2023 18:25:00 29.8 18.0-42.0 (%) Final Monos 06/06/2023 18:25:00 10.4 1.0-11.0 (%) Final Eosinophils 06/06/2023 18:25:00 1.1 0.0-6.0 (%) Final Basos 06/06/2023 18:25:00 0.2 0.0-2.0 (%) Final Immature Granulocyte, Percent 06/06/2023 18:25:00 0.2 0.0-2.0 (%) Final Absolute Segs 06/06/2023 18:25:00 3.21 1.80-7.70 (K/uL) Final Lymphs, absolute 06/06/2023 18:25:00 1.64 1.00-4.80 (K/ul) Final Monos, Abs 06/06/2023 18:25:00 0.57 0.00-1.10 (K/uL) Final Eos, Abs 06/06/2023 18:25:00 0.06 0.00-0.70 (K/uL) Final Basos, Abs 06/06/2023 18:25:00 0.01 0.00-0.20 (K/uL) Final Immature Granulocytes, Number 06/06/2023 18:25:00 0.01 0.00-0.20 (K/uL) Final Performing Location LABORATORY [facility] - [address] [place] [address]
--- OUTSIDE RECORDS SUMMARY | 2023-08-03 00:09 | External Medical Summary | Summary of Care ---
Author Name Unknown Organization [facility] Address [address] [place] [facility] [place] [place] [address] Phone [phone] Care Team Providers Care Booking Prizer Name Role Phone Isrrael Bolivar Primary Care Provider [phone] Reason for Visit * Reason Comments Follow Up Rm 6 Encounter Details Date Type Department Care Team Description 04/05/2023 Office Visit Cardiology Raad Cash [address] [place] [id number] Akhil Quintero DO [address] [place] [address] Persistent atrial fibrillation (HCC)*; Takotsubo cardiomyopathy; Chronic heart failure with preserved ejection fraction (HCC) Allergies No known active allergiesdocumented as of this encounter (statuses as of 04/05/2023) Medications Medication Sig Dispensed Refills Start Date End Date Status NITROGLYCERIN 0.4 MG SL SUBLIndications: Hypopotassemia,C ardiac arrest (HCC),INTERFACED RESULT,Respirato ry failure, acute (HCC),Ventricula r fibrillation (HCC),Acute non Q wave myocardial infarction (HCC),Dyslipidem ia, goal LDL below 100,HTN, goal below 130/80,DM type 2, not at goal (HCC),Asthma, mild persistent,Elect rolyte and fluid disorder 1 Tab Sublingual Every 5 minutes as needed for chest pain 30 Tab 3 1 Active atorvaSTATin (LIPITOR) 40 MG Tablet Take 1 Tablet by mouth every evening. 0 Active ipratropium-albu terol (COMBIVENT RESPIMAT) 20-100 MCG/ACT Inhaler Inhale 1 Puff by mouth 4 times a day. 1 Inhaler 0 8 Active Silver sulfADIAZINE 1 % External Cream Apply topically to affected area daily . Apply to BLE 0 Active Acetaminophen 325 MG Oral Tablet (Tylenol) Take by mouth 3 Tablets in the morning AND 3 Tablets at noon AND 3 Tablets before bedtime. 30 Tablet 0 2 Active Jardiance 25 MG Oral Tablet Take 1 Tablet by mouth in the morning. 0 2 Active Docusate Sodium 100 MG Oral Capsule (Colace) Take 1 Capsule by mouth 2 times a day as needed for Constipation. 10 Capsule 0 2 Active Fluticasone Furoate-Vilanter ol 200-25 MCG/ACT Inhalation Aerosol Powder Breath Activated Inhale 1 Puff by mouth in the morning. 60 Blister Dosing Unit 0 2 Active Pregabalin 150 MG Oral Capsule (Lyrica) Take 1 Capsule by mouth in the morning and 1 Capsule before bedtime. 0 2 Active TRUEplus Lancets 33G 0 2 Active True Metrix Blood Glucose Test In Vitro Strip 0 2 Active True Metrix Meter w/Device Kit 0 2 Active Alendronate Sodium 70 MG Oral Tablet (Fosamax) Take 1 Tablet by mouth once a week. 0 2 Active Aspirin 81 MG Oral Tablet Chewable CHEW AND SWALLOW ONE TABLET BY MOUTH IN THE MORNING. 30 Tablet 1 3 11/05/19 24 Active Additional Information Patient taking differently: 81 mg Oral Daily(AM), Informant: Transferring Facility Documents, Child, Reported on 12/24/2022 Torsemide 20 MG Oral Tablet (Demadex)Indicat ions:HTN, goal below 140/90,Dyslipide joan, goal LDL below 70,Permanent atrial fibrillation (HCC),Chronic diastolic congestive heart failure (HCC),ICD (implantable cardioverter-def ibrillator), single, in situ,Coronary artery disease involving yomba shoshone coronary artery of yomba shoshone heart without angina pectoris TAKE 1 TABLET BY MOUTH IN THE MORNING 60 Tablet 3 3 11/05/19 24 Active Additional Information Patient taking differently: 20 mg Oral Daily(AM), Informant: Transferring Facility Documents, Child, Reported on 12/24/2022 Colchicine 0.6 MG Oral Tablet TAKE 1 TABLET BY MOUTH EVERY MORNING. 30 Tablet 1 3 11/05/19 24 Active Additional Information Patient taking differently: 0.6 mg Oral Daily(AM), Informant: Transferring Facility Documents, Child, Reported on 12/24/2022 Omeprazole 20 MG Oral Capsule Delayed Release (PriLOSEC) TAKE 1 CAPSULE BY MOUTH IN THE MORNING 30 Capsule 1 3 11/05/19 24 Active Additional Information Patient taking differently: 20 mg Oral Daily(AM), Informant: Transferring Facility Documents, Child, Reported on 12/24/2022 Metoprolol Succinate ER 25 MG Oral Tablet Extended Release 24 Hour (Toprol XL) Take 0.5 Tablets by mouth in the morning. 30 Tablet 5 3 Active traMADol HCl 50 MG Oral Tablet (Ultram) Take 1 Tablet by mouth every 6 hours as needed for Pain, Severe. 10 Tablet 0 3 Active Apixaban 5 MG Oral Tablet (Eliquis)Indicat ions:Persistent atrial fibrillation (HCC) TAKE 1 TABLET BY MOUTH 2 times daily 60 Tablet 3 3 Active glipiZIDE ER 2.5 MG Oral Tablet Extended Release 24 Hour Take 2 Tablets by mouth in the morning and 2 Tablets before bedtime. 0 8 04/05/20 23 Discontinued prednisoLONE Acetate 1 % Ophthalmic Suspension (Pred Forte) Instill 1 Drop into the left eye in the morning and 1 Drop at noon and 1 Drop in the evening and 1 Drop before bedtime. 10 mL 1 3 04/05/20 23 Discontinued(Oh dication List Clean Up) documented as of this encounter (statuses as of 04/05/2023) Active Problems Problem Noted Date Critical limb ischemia of le ft lower extremity with autologous bypass graft with rest pain 12/24/2022 Lip lesion 11/05/2022 Melena 11/05/2022 Acute viral pericarditis 11/03/2022 (HFpEF) heart failure with preserved eje ction fraction 11/03/[address] elevation myocardial infarction (STEMI) 11/01/2022 Acute thoracic back pain 03/02/2022 Bilateral cellulitis of lower leg 2021 Hypokalemia 02/04/2020 Chronic anticoagulation 02/04/2020 Acute bronchitis, complicated 11/27/2018 Atrial fibrillation 11/24/2018 Acute on chronic diastolic heart failure 11/24/2018 RLL pneumonia 12/02/2017 Automatic implantable cardioverter-defib rillator in situ 12/15/2010 Acute respiratory failure with hypoxia 0 11/24/2010 Type 2 diabetes mellitus with hemoglobin A1c goal of less than 7.0% 11/24/2010 Overview: ICD-10 update of inactive term Asthma, mild persistent 11/24/2010 Hyperlipidemia Hypertension Takotsubo cardiomyopathy documented as of this encounter (statuses as of 04/05/2023) Resolved Problems Problem Noted Date Resolved Date Cardiac/pericardial tamponade 11/02/2022 Hypoxemia 11/24/2018 11/27/2018 Cardiac arrest 11/24/2010 07/14/2011 Ventricular fibrillation 11/24/2010 011 Acute non Q wave myocardial infarction 1 07/14/2011 HTN, goal below 130/80 11/24/2010 2 Overview: Per HTN Protocol #27. documented as of this encounter (statuses as of 04/05/2023) Immunizations Name Administration Dates Next Due Pneumococcal Polysaccharide PPV23 (Pneumovax) documented as of this encounter Social History Tobacco Use Types Packs/Day Years Used Date Smoking Tobacco: Never Smokeless Tobacco: Never Alcohol Use Standard Drinks/Week Comments No 0 (1 standard drink = 0.6 oz pur e alcohol) Sex Assigned at Date Recorded Not on file Job Start Date Occupation Industry Not on file Not on file Not on file documented as of this encounter Last Filed Vital Signs Vital Sign Reading Time Taken Comments Blood Pressure 138/72 04/05/2023 8:28 AM EDT Pulse 68 04/05/2023 8:28 AM EDT Temperature - - Respiratory Rate 16 04/05/2023 8:28 AM EDT Oxygen Saturation - - Inhaled Oxygen Concentration - - Weight 62.1 kg (137 lb) 04/05/2023 8:28 AM EDT Height 162.6 cm (5' 4") 04/05/2023 8:28 AM EDT Body Mass Index 23.52 04/05/2023 8:28 AM EDT documented in this encounter Functional Status Functional [...] No 12/24/2022 documented as of this encounter Progress Notes * Akhil Quintero, DO - 04/05/2023 8:47 AM EDT 04/05/2023 Cardiology Follow Up Reason for Follow Up ICD-10-CM 1. Persistent atrial fibrillation (HCC) I48.19 2. Takotsubo cardiomyopathy I51.81 3. Chronic heart failure with preserved ejection fraction (HCC) I50.32 SUBJECTIVE: Lillian Feliciano is a 88 year old year old female who in November 2010 sustained a ventricular fibrillation cardiac arrest. She had an echo that was suggestive of multivessel coronary artery disease vs stress-induced cardiomyopathy. She underwent cardiac catheterization and had no significant coronary artery disease. She has a single-chamber ICD. She presents today for follow-up and she is had 2 falls since the last time I have seen her. I noteher blood sugar was low. She does not take her blood sugar at home. Extensive ROS: All other ROS negative or as stated above. Patient Active Problem List Diagnosis Code Acute respiratory failure with hypoxia ([facility]) J96.01 Type 2 diabetes mellitus with hemoglobin A1c goal of less than 7.0% ([facility]) E11.9 Asthma, mild persistent J45.30 Automatic implantable cardioverter-defibrillator in situ Z95.810 Hyperlipidemia E78.5 Hypertension I10 Takotsubo cardiomyopathy I51.81 RLL pneumonia J18.9 Atrial fibrillation ([facility]) I48.91 Acute on chronic diastolic heart failure ([facility]) I50.33 Acute bronchitis, complicated J20.9 Hypokalemia E87.6 Chronic anticoagulation Z79.01 Bilateral cellulitis of lower leg L03.116, L03.115 Acute thoracic back pain M54.[address] elevation myocardial infarction (STEMI) ([facility]) I21.3 Acute viral pericarditis I30.1 (HFpEF) heart failure with preserved ejection fraction ([facility]) I50.30 Lip lesion K13.0 Melena K92.1 Critical limb ischemia of left lower extremity with autologous bypass graft with rest pain ([facility]) I70.422 Review of patient's allergies indicates: No Known Allergies Current Outpatient Medications Medication Sig Dispense Refill NITROGLYCERIN 0.4 MG SL SUBL 1 Tab Sublingual Every 5 minutes as needed for chest pain 30 Tab 3 atorvaSTATin (LIPITOR) 40 MG Tablet Take 1 Tablet by mouth every evening. ipratropium-albuterol (COMBIVENT RESPIMAT) 20-100 MCG/ACT Inhaler Inhale 1 Puff by mouth 4 times a day. 1 Inhaler 0 Silver sulfADIAZINE 1 % External Cream Apply topically to affected area daily . Apply to BLE Acetaminophen 325 MG Oral Tablet (Tylenol) Take by mouth 3 Tablets in the morning AND 3 Tabletsat noon AND 3 Tablets before bedtime. 30 Tablet 0 Jardiance 25 MG Oral Tablet Take 1 Tablet by mouth in the morning. Docusate Sodium 100 MG Oral Capsule (Colace) Take 1 Capsule by mouth 2 times a day as needed for Constipation. 10 Capsule 0 Fluticasone Furoate-Vilanterol 200-25 MCG/ACT Inhalation Aerosol Powder Breath Activated Inhale1 Puff by mouth in the morning. 60 Blister Dosing Unit Pregabalin 150 MG Oral Capsule (Lyrica) Take 1 Capsule by mouth in the morning and 1 Capsule before bedtime. Alendronate Sodium 70 MG Oral Tablet (Fosamax) Take 1 Tablet by mouth once a week. Aspirin 81 MG Oral Tablet Chewable CHEW AND SWALLOW ONE TABLET BY MOUTH IN THE MORNING. (Patient taking differently: Take 1 Tablet by mouth in the morning.) 30 Tablet 1 Torsemide 20 MG Oral Tablet (Demadex) TAKE 1 TABLET BY MOUTH IN THE MORNING (Patient taking differently: Take 1 Tablet by mouth in the morning.) 60 Tablet 3 Colchicine 0.6 MG Oral Tablet TAKE 1 TABLET BY MOUTH EVERY MORNING. (Patient taking differently: Take 1 Tablet by mouth in the morning.) 30 Tablet 1 Omeprazole 20 MG Oral Capsule Delayed Release (PriLOSEC) TAKE 1 CAPSULE BY MOUTH IN THE MORNING(Patient taking differently: Take 1 Capsule by mouth in the morning.) 30 Capsule 1 Metoprolol Succinate ER 25 MG Oral Tablet Extended Release 24 Hour (Toprol XL) Take 0.5 Tabletsby mouth in the morning. 30 Tablet 5 traMADol HCl 50 MG Oral Tablet (Ultram) Take 1 Tablet by mouth every 6 hours as needed for Pain, Severe. 10 Tablet 0 Apixaban 5 MG Oral Tablet (Eliquis) TAKE 1 TABLET BY MOUTH 2 times daily 60 Tablet 3 TRUEplus Lancets 33G True Metrix Blood Glucose Test In Vitro Strip True Metrix Meter w/Device Kit No current facility-administered medications for this visit. 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 No mold. Oil heat. No air conditioning. Family History Problem Relation Age of Onset Heart Disorder Mother Lung Disorder Father Cancer Sister Breast and lung Cancer Brother Unknown type Cancer Sister Breast and bone Cancer Sister Stomach Other (Accident at work due to a head injury) Brother Heart disease Brother Kidney disease Brother Cancer Brother stomach Family Status Relation Status Mo at age 82 Coronary Artery Disease Fa at age 49 Silicosis Sis Bro Sis Sis Bro Bro Alive Bro Past Surgical History: Procedure Laterality Date CORONARY ANGIOGRAPHY W/LEFT HEART CATH 12/04/2010 CORONARY ANGIOGRAPHY W/LEFT HEART CATH performed by TEODORO LEWIS at [facility] CORONARY ANGIOGRAPHY W/LEFT HEART CATH Right 11/01/2022 CORONARY ANGIOGRAPHY W/LEFT HEART CATH performed by Kaden Armstrong DO at [facility] ELECTROPHYSIOLOGY EVALUATION 12/07/2010 ICD IMPLANT DEVICE/LEADS TESTING performed by RAPHAEL MITTAL at [facility] INFORMATION Bilateral tubal INSERT/REPLACE DEFIBRILLATOR W/TRANSVERSE LEAD(S) Left 11/27/2010 Medtronic single chamber PERICARDIOCENT INTL/HOSP ONLY Left 11/02/2022 PERICARDIOCENTESIS performed by Dinora Bingham MD at [facility] REMOVE CATARACT, INSERT LENS PROSTH Left 01/04/2023 EXTRACAPSULAR CATARACT REMOVAL WITH INTRAOCULAR LENS performed by Christian Woo DO at [facility] REMOVE CATARACT, INSERT LENS PROSTH Right 01/28/2023 EXTRACAPSULAR CATARACT REMOVAL WITH INTRAOCULAR LENS performed by Christian Woo DO at OR [facility] SYNTH BYPASS, FEMORAL-POP Left 12/23/2022 BYPASS GRAFT OTHER THAN VEIN FEMORAL POPLITEAL performed by Misael Reese MD at [facility] THROMB ART/VENOUS GRAFT W/REVI Left 12/23/2022 THROMBECTOMY ARTERIAL VENOUS GRAFT WITH REVISION performed by Misael Reese MD at OR [facility] OBJECTIVE/PHYSICAL EXAMINATION: BP 138/72 | Pulse 68 | Resp 16 | Ht 1.626 m (5' 4") | Wt 62.1 kg (137 lb) | BMI 23.52 kg/m | BSA 1.67 m General: no acute distress and stated age Eyes: conjunctiva are pink and non-injected, sclera clear Neck: normal jugular venous pulse, no hepatojugular reflux Chest: normal shape and normal respiratory effort Lungs: clear to auscultation and percussion Cardiac Exam: - irregular heart sounds, no murmurs, rubs, or gallops Abdomen: abdomen soft, non-tender, no abnormal masses and no hepatosplenomegaly Musculoskeletal: no gait disturbance, no weakness Extremities: no edema and no cyanosis Neuro: grossly normal exam Psych: appropriate affect and insight. Skin: No rash Lymph: No adenopathy Data: Lipid Panel Results: Results for orders placed or performed during the hospital encounter of 11/01/22 LIPID PANEL WITHOUT DIRECT LDL Result Value Ref Range Triglycerides 66 <=174 mg/dL Cholesterol 84 <200 mg/dL HDL Cholesterol 37 (L) >49 mg/dL Non-HDL Cholesterol 47 <=159 mg/dL LDL Cholesterol 34 <=129 mg/dL Results for orders placed or performed during the hospital encounter of 12/22/14 LIPID PANEL WITH DIRECT LDL IF TG ABOVE 400 MG/DL Result Value Ref Range HOURS FASTING NOT PROVIDED hours Triglycerides 108 <200 mg/dL Cholesterol 120 <200 mg/dL HDL Cholesterol 28 (L) >39 mg/dL Cholesterol-HDL Ratio 4.3 LDL Cholesterol 70 0 - 129 mg/dL LDL Cholesterol (Direct Measure) NOT APPLICABLE 0 - 100 mg/dL TSH Results: Lab Results Component Value Date/Time TSH - [facility] 2.87 02/04/2020 08:20 AM TSH - [facility] 1.82 07/22/2018 01:11 PM TSH - [facility] 2.33 07/21/2018 11:30 AM ASSESSMENT: 87 year old year old female with a nonischemic cardiomyopathy and history of ventricular fibrillation arrest now with a single-chamber ICD, and atrial fibrillation. PLAN: 1. Nonischemic cardiomyopathy: Her ventricular function is now in the low normal range. she does have chronic diastolic heart failure and is on a good medical regimen and currently is euvolemic. She is getting her device interrogated today. She did have 2 falls since the last time I have seen her in her blood sugar was low. I have discontinued her glipizide. 2. Atrial fibrillation: Her rate is controlled with her device as well as metoprolol. She is on Eliquis for stroke prevention. Akhil Quintero DO Cardiology [address] [address] This chart was completed in part utilizing [employer] Mobile Speech Voice Recognition Software. Grammatical errors, random word insertions, prounoun errors, and incomplete sentences are an occasional consequence of this system due to software limitations, ambient noise, and hardware issues. Any formal questions or concerns about the content, text, or information contained within the body of this dictation should be directly addressed to the provider for clarification. documented in this encounter Nursing Notes * DAVID Lantigua - 04/05/2023 8:30 AM EDT Patient was identified by name and date of . Examination Room: 6 Name: Lillian Feliciano Date of : (1935). Reason for Visit: ret visit Interim Hospitalization(s): yes- fall Problems/Concerns: no Chest Pain/SOB: no Medications reviewed and are up to date via: med list My [facility] is a way you can talk to your provider online through e-mail. Would you like to sign up? I can activate it for you? ALREADY ACTIVE Do you have video visit capabilities (email and smart phone)? No. Would you be interested in 6 or 12 return visit being scheduled as a video visit if the provider approves? No Patient was instructed to not get up on the exam table/exam chair until directed and assisted by their provider; patient is to remain seated in the chair/ wheelchair/ exam table/ exam chair for fall prevention and safety reasons. Patient is aware to have assistance to step down off exam table/exam chair with personnel. Patient voiced full comprehension of instructions. DAVID Urbano documented in this encounter Plan of Treatment Upcoming Encounters Date Type Specialty Care Team Description 10/11/2023 Office Visit Cardiology Akhil Quintero, DO [address] [place] [address] 04/04/2024 Cardiac Studies Cardiology [facility] [address] [address] Health Maintenance Due Date Last Done Comments COVID-19 Vaccine (#1) 1935 Depression Screening, Annual for Pts 12 and Over 1947 DIABETES-FOOT EXAM 1955 DTaP,Tdap,and Td Vaccines (1 - Tdap) 01/22/1956 Zoster Vaccines (1 of 2) 1987 Pneumococcal Vaccine: 65+ Years (2 - PCV) 12/04/2011 12/03/2010 Albumin/Creatinine Ratio 12/03/2015 12/02/2014 *SPIROMETRY ONCE FOR ASTHMA-ADULT 11/07/2016 HbA1c 05/02/2023 11/02/2022, 09/20, 01/31/2022, Additional history exists Influenza Vaccine (FLU shot) (#1) 2023 DIABETES-EYE EXAM 09/07/2023 09/07/2022, , 09/07/2022, Additional history exists DXA Scan 05/31/2029 05/31/2022, 05/22/2019 GARDASIL-HPV IMMUNIZATION SERIES Aged Out No longer eligible based on patient's age to complete this topic Hepatitis B Aged Out No longer eligi ble based on patient's age to complete this topic MENINGOCOCCAL (MENACTRA/MENVEO) Aged Out No longer eligible based on patient's age to complete this topic documented as of this encounter Medical Devices Implanted Type Area Adventure Guide Device Identifier Shelf Expiration Date Model / Serial / Lot Lens 21.0 [employer] - [id number] - [id number] Implanted:Qty: 1 on 01/28/2023 by Christian Woo DO at OR [facility] Lens Right: Eye [employer] 10/12/2025 CNA0T0.210 / [id number] / Lens 20.5 [facility] - [id number] 135 - [id number] Implanted:Qty: 1 on 01/04/2023 by Christian Woo DO at OR [facility] Left: Eye [employer] 07/15/2025 CNA0T0.205 / [id number] / documented as of this encounter Visit Diagnoses Diagnosis Persistent atrial fibrillation (HCC)- Primary Atrial fibrillation Takotsubo cardiomyopathy Takotsubo syndrome Chronic heart failure with preserved ejection fraction (HCC) documented in this encounter Advance Directives [...] the patient have Health Care Power of Ict Teacher? No Care Teams Booking Prizer Relationship Specialty Start Date End Date Isrrael Bolivar, DO [address] [place] [id number] PCP - General Family Medicine 11/24/10 documented as of this encounter
--- OUTSIDE RECORDS SUMMARY | 2023-08-03 00:09 | External Medical Summary ---
Author Name Unknown Address Unknown Organization K1F:[facility] - [address] [place] [address] Laboratory Report Ordering Provider Test Date Status PANCHITO SHANE 06/06/2023 18:25:00 Final Observation Date Value Abnormality Reference (Units ) Status CRP, low-sensitivity 06/06/2023 18:25:00 3 <=5 (mg/L) Final Performing Location [facility] - [address] [place] [address]
--- OUTSIDE RECORDS SUMMARY | 2023-08-03 00:09 | External Medical Summary | Summary of Care ---
Author Name Unknown Organization [facility] Address [address] [place] [address] Phone [phone] Care Team Providers Care Sail Repairer Name Role Phone Isrrael Bolivar DO Primary Care Provider [phone] Encounter Details Date Type Department Care Team Description 04/07/2023 Result Scan Unspecified Department Arti Lipscomb DO [address] [facility] [place] [address] <No scans attached> Allergies No known active allergiesdocumented as of this encounter (statuses as of 04/07/2023) Medications Medication Sig Dispensed Refills Start Date [...] rillator), single, in situ,Coronary artery disease involving rincon coronary artery of rincon heart without angina pectoris TAKE 1 TABLET [...] as of this encounter (statuses as of 04/07/2023) Active Problems Problem Noted Date Critical limb [...] as of this encounter (statuses as of 04/07/2023) Resolved Problems Problem Noted Date Resolved Date Cardiac/pericardial tamponade 11/02/2022 Hypoxemia 11/24/2018 11/27/2018 Cardiac arrest 11/24/2010 07/14/2011 Ventricular fibrillation 11/24/2010 011 Acute non Q wave myocardial infarction 1 07/14/2011 HTN, goal below 130/80 11/24/2010 2 Overview: Per HTN Protocol #27. documented as of this encounter (statuses as of 04/07/2023) Immunizations Name Administration Dates Next Due Pneumococcal [...] on file documented as of this encounter Functional Status Functional Status Response [...] No 12/24/2022 documented as of this encounter Plan of Treatment Upcoming Encounters Date Type Specialty Care Team Description 10/11/2023 Office Visit Cardiology Akhil Quintero, [address] [place] [address] 04/04/2024 Cardiac Studies Cardiology [facility] [phone] Health Maintenance Due Date Last Done Comments [...] this encounter Medical Devices Implanted Type Area Financial Manager Device Identifier Shelf Expiration Date Model / Serial / Lot Lens 21.0 [facility] [employer] - [id number] - [id number] Implanted:Qty: 1 on 01/28/2023 by Christian Woo DO at OR [facility] Lens Right: Eye [employer] 10/12/2025 CNA0T0.210 / [id number] / Lens 20.5 [facility] - [id number] 135 - [id number] Implanted:Qty: 1 on 01/04/2023 by Christian Woo DO at OR [facility] Left: Eye [employer] 07/15/2025 CNA0T0.205 / [id number] / documented as of this encounter Procedures Procedure Name Priority Date/Time Associated Diagnosis Comments CARDIOLOGY SCANNED RESULT 04/07/2023 documented in this encounter Results * CARDIOLOGY SCANNED RESULT (04/07/2023) 04/07/2023 Arti Lipscomb DO OTHER documented in this encounter Advance Directives Latest [...] the patient have Health Care Power of Correction Officer City [facility] County Jail? No Care Teams Sail Repairer Relationship Specialty Start Date End Date Isrrael Bolivar, DO [address] [place] [address] PCP - General Family Medicine 11/24/10 documented as of this encounter
--- OUTSIDE RECORDS SUMMARY | 2023-08-03 00:09 | External Medical Summary | Summary of Care ---
Author Name Unknown Organization [facility] Address [address] [place] [address] Phone [phone] Care Team Providers Care Forest Products Gatherer Name Role Phone Isrrael Bolivar DO Primary Care Provider [phone] Reason for Visit * Reason Comments Leg Pain Swelling * Auth/Cert Specialty Diagnoses / Procedures Referred By Albin t Referred To Contact Referral ID Status Reason Start Date Expiration Date Visits Re quested Visits Authorized [id number] Encounter Details Date Type Department Care Team Description 06/06/2023 Emergency [facility] ([facility]) [address] [facility] [place] [address] [address] [id number] Peripheral edema (Primary Dx) Allergies No known active allergiesdocumented as of this encounter (statuses as of 06/07/2023) Medications Medication Sig Dispensed Refills Start Date [...] rillator), single, in situ,Coronary artery disease involving [place] coronary artery of [place] heart without angina pectoris TAKE 1 TABLET [...] as of this encounter (statuses as of 06/07/2023) Active Problems Problem Noted Date Critical limb [...] as of this encounter (statuses as of 06/07/2023) Resolved Problems Problem Noted Date Resolved Date Cardiac/pericardial tamponade 11/02/2022 Hypoxemia 11/24/2018 11/27/2018 Cardiac arrest 11/24/2010 07/14/2011 Ventricular fibrillation 11/24/2010 011 Acute non Q wave myocardial infarction 1 07/14/2011 HTN, goal below 130/80 11/24/2010 2 Overview: Per HTN Protocol #27. documented as of this encounter (statuses as of 06/07/2023) Immunizations Name Administration Dates Next Due Pneumococcal [...] Sign Reading Time Taken Comments Blood Pressure 182/91 06/06/2023 7:14 PM EDT Pulse 68 06/06/2023 7:14 PM EDT Temperature 36.4 C (97.5 F) 06/06/2023 5:57 PM ED T Respiratory Rate 21 06/06/2023 7:14 PM EDT Oxygen Saturation 97% 06/06/2023 6:21 PM EDT Inhaled Oxygen Concentration - - Weight 65.2 kg (143 lb 11.2 oz) 06/06/2023 5:57 PM EDT Height 162.6 cm (5' 4") 06/06/2023 5:57 PM EDT Body Mass Index 24.67 06/06/2023 5:57 PM EDT documented in this encounter Functional Status [...] No 12/24/2022 documented as of this encounter Nursing Notes * Sharmila Hunter RN - 06/06/2023 6:47 PM EDT Pt here with c/o RLE pain and worsening swelling, as well as seeping from small wounds to R anterior lower leg. Pt reports several months ago she bumped leg against something and ended up with what her PCP thought was cellulitis. She reports that she took abx which did not help. Skin to BLE shiny and taut. +2 pitting edema BLE. +1 DP bilat. Intact sensation and mvmt. Pt able to bear weight with increased pain. STEM MOUNTER 3 sec. documented in this encounter ED Notes * Carlin Dickson, - 06/06/2023 7:21 PM EDT HISTORY OF PRESENT ILLNESS Lillian Feliciano is a 88 year old female who presents to the ED for evaluation of Leg Pain and Swelling. The patient was seen at 06/06/23 1808. 88-year-old female who presents with right leg swelling. Patient notes she struck her leg on a fan approximately 2 and half weeks ago. Patient notes she has 3 open wounds on her right lower extremity. Patient notes that she was seen by her primary care physician and placed on antibiotics. Patient notes no improvement in symptoms with antibiotics. Patient notes she has had constant weeping from the right leg. Patient denies fever, chills. Review of Systems Constitutional: Negative for fatigue and fever. Respiratory: Negative for shortness of breath and wheezing. Cardiovascular: Positive for leg swelling. Gastrointestinal: Negative for abdominal pain, nausea and vomiting. Skin: Positive for wound. Negative for color change, pallor and rash. The patient's allergies, past history, and medications were reviewed. PHYSICAL EXAM Initial Vitals (see all): BP 159/91 | Pulse 107 | Resp 22 | Temp 97.5 | O2 98 %, Room Air, None | Weight 65.18 kg | Height 162.6 cm | BMI 24.67 kg/m2 Initial Pain Assessment (see all): 10 (severe pain)/10, Throbbing, location: RLE ([facility] Adult Scale 0-10) Physical Exam Vitals and nursing note reviewed. Constitutional: General: She is not in acute distress. Appearance: Normal appearance. HENT: Head: Normocephalic and atraumatic. Musculoskeletal: General: Swelling present. Normal range of motion. Comments: 3+ pitting edema bilateral lower extremities Skin: General: Skin is warm and dry. Capillary Refill: Capillary refill takes less than 2 seconds. Comments: 3 small wounds located on right anterior tibial region; no ecchymosis, no significant erythema, no fluctuance, mild serous drainage Neurological: General: No focal deficit present. Mental Status: She is alert and oriented to person, place, and time. Psychiatric: Mood and Affect: Mood normal. PROCEDURES AND TREATMENTS ED Orders | ED Results MEDICAL DECISION MAKING Nursing notes and vital signs were reviewed. ED Course as of 06/06/232140Jun 06, 20231913 Patient offered compression stockings for right lower extremity but declined stating she had 7pairs at home [BB] ED Course User Index [BB] Carlin Dickson, DO Differential Diagnoses Based on my history, physical exam, and evaluation, the differential includes, but is not limited, to the following diagnoses: Cellulitis, contact dermatitis, lymphedema. 88-year-old female who presents with a healing wounds on right lower extremity. Normal CRP, no leukocytosis, no fever, low suspicion for infection. Patient recently treated with antibiotics with no improvement likely because pain not driven by infection. Discussion with patient that wounds are poorly healing likely secondary to significant bilateral lower extremity edema. Patient given Lasix. Discussed use of compression stockings to help with healing. Patient agreeable to follow up with PCP Amount and/or Complexity of Data Reviewed Labs: ordered. Risk OTC drugs. Prescription drug management. Clinical Impressions Peripheral edema Disposition Discharged. The patient's condition at disposition was: stable. Carlin Dickson * Los Morton RN - 06/06/2023 5:59 PM EDT Pt here with RLE pain and worsening swelling. Also states that she has several open wounds on the RLE that are draining serosanguinous drainage. Reports a hx of cellulitis in the past. Is able to bear weight/transfer/ambulate - just has increased pain while doing so. Denies any known fevers/N/V/malaise since worsening symptoms have developed. documented in this encounter Miscellaneous Notes * ED Veterinary Pathologist Note - Gracy Thomason RN - 06/06/2023 7:20 PM EDT Discharge instructions reviewed with the patient at bedside. Patient instructed to follow up with their PCP and return to the ED should their symptoms worsen. Patient verbalized understanding and denies any additional quesitons at this time. Patient ambulated form the ED with a steady gait. * Pt Handout (on AVS) - Carlin Dickson DO - 06/06/2023 7:07 PM EDT Images from the original note were not included. [id number] Leg Swelling in Both Legs Swelling of the feet, ankles, and legs is called edema. It's caused by extra fluid that has collected in the tissues. Extra fluid in the body settles in the lowest part because of gravity. This is why the legs and feet are most affected. Some of the causes for edema include: Disease of the heart, such as congestive heart failure Standing or sitting for long periods of time Infection of the feet or legs Blood pooling in the veins of your legs (venous insufficiency) when the veins have less elasticity Dilated veins in your lower leg (varicose veins) Poor drainage of the lymphatic system Some medicines, including some hormones such as control pills, some blood pressure medicines such as calcium channel blockers, steroids, and some antidepressants such as MAO inhibitors and tricyclics Menstrual periods that cause you to retain fluids Many types of kidney disease Liver failure or cirrhosis , in which some swelling is normal, but a sudden increase in leg swelling or weight gain can be a sign of a dangerous complication of called eclampsia Poor nutrition Thyroid disease Treatment will depend on what is causing the swelling in your legs. Your healthcare provider may prescribe water pills (diuretics) to get rid of the extra fluid. Home care Follow these guidelines when caring for yourself at home: Keep your legs up while lying or sitting. If infection, injury, or recent surgery is causing the swelling, stay off your legs as much as possible until symptoms get better. If your healthcare provider says that your leg swelling is caused by venous insufficiency or varicose veins, don't sit or windsurfing instructor one place for long periods of time. Take breaks and walk about every few hours. Brisk walking is a good exercise. It helps circulate the blood that has collected in your leg. Talk with your provider about using support stockings to stop daytime leg swelling. If your provider says that heart disease is causing your leg swelling, follow a low-salt diet tostop extra fluid from staying in your body. You may also need medicine. Follow-up care Follow up with your healthcare provider, or as advised. When to get medical advice Call your healthcare provider right away if any of these occur: Swelling in both legs or ankles that gets worse Belly (abdominal) swelling Redness, warmth, or swelling in 1 leg Fever of 100.4F (38C) or higher, or as advised by your provider Yellow color to your skin or eyes Rapid, unexplained weight gain Having to sleep upright or use more pillows Call 911 Call 911 or get medical care right away if you have: New shortness of breath or chest pain Worsening shortness of breath or chest pain? Last Reviewed Date: 04/19/202219994043-8839 [employer]. All rights reserved. This information is not intended as a substitute for professional medical care. Always follow your healthcare professional's instructions. documented in this encounter Plan of Treatment Upcoming Encounters Date Type Specialty Care Team Description 06/08/2023 Office Visit Wound Care Leanne Mays, DPM [address] [place] [address] 10/11/2023 Office Visit Cardiology Akhil Quintero DO [address] [id number] 04/04/2024 Cardiac Studies [facility]iology [facility] [address] [place] [id number] Health Maintenance Due Date Last Done Comments [...] this encounter Medical Devices Implanted Type Area Foundation Maker Device Identifier Shelf Expiration Date Model / Serial / Lot Lens 21.0 [employer] - [id number] - [id number] Implanted:Qty: 1 on 01/28/2023 by Christian Woo DO at OR [facility] Lens Right: Eye [employer] 10/12/2025 CNA0T0.210 / [id number] / Lens 20.5 [employer] - [id number] - [id number] Implanted:Qty: 1 on 01/04/2023 by Christian Woo DO at OR [facility] Left: Eye [employer] 07/15/2025 CNA0T0.205 / [id number] / documented as of this encounter Procedures Procedure Name Priority Date/Time Associated Diagnosis Comments DIFFERENTIAL, AUTOMATED STAT 06/06/2023 6:25 PM EDT CRP (INFLAMMATORY MARKER) STAT 06/06/2023 6:25 PM EDT BNP (NT-PROBNP) STAT 06/06/2023 6:25 PM EDT BASIC METABOLIC PANEL STAT 06/06/2023 6:25 PM EDT CK STAT 06/06/2023 6:25 PM EDT CBC WITH WBC DIFFERENTIAL STAT 06/06/2023 6:25 PM EDT CBC STAT 06/06/2023 6:25 PM EDT documented in this encounter Results * DIFFERENTIAL, AUTOMATED (06/06/2023 6:25 PM EDT) WBC 5.50 4.00 - 10.80 K/uL 06/06/2023 6:42 PM EDT LABORATORY [facility] Neutrophils % 58.3 40.0 - 75.0 % 06/06/2023 6:42 PM EDT LABORATORY [facility] Lymphocytes % 29.8 18.0 - 42.0 % 06/06/2023 6:42 PM EDT LABORATORY [facility] Monocytes % 10.4 1.0 - 11.0 % 06/06/2023 6:42 PM EDT LABORATORY [facility] Eosinophils % 1.1 0.0 - 6.0 % 06/06/2023 6:42 PM EDT LABORATORY [facility] Basophils % 0.2 0.0 - 2.0 % 06/06/2023 6:42 PM EDT LABORATORY [facility] Immature Granulocytes % 0.2 0.0 - 2.0 % 06/06/2023 6:42 PM EDT LABORATORY [facility] Absolute Neutrophils 3.21 1.80 - 7.70 K/uL 06/06/2023 6:42 PM EDT LABORATORY [facility] Absolute Lymphocytes 1.64 1.00 - 4.80 K/ul 06/06/2023 6:42 PM EDT LABORATORY [facility] Absolute Monocytes 0.57 0.00 - 1.10 K/uL 06/06/2023 6:42 PM EDT LABORATORY [facility] Absolute Eosinophils 0.06 0.00 - 0.70 K/uL 06/06/2023 6:42 PM EDT LABORATORY [facility] Absolute Basophils 0.01 0.00 - 0.20 K/uL 06/06/2023 6:42 PM EDT LABORATORY [facility] Absolute Immature Granulocytes 0.01 0.00 - 0.20 K/uL 06/06/2023 6:42 PM EDT LABORATORY [facility] Blood Venous blood specimen / Unknown Venipuncture / Unknown 06/06/2023 6:25 PM EDT 06/06/2023 6:31 PM EDT Carlin Dickson DO LAB BLOOD ORD ERABLES LABORATORY [address] [address] * (ABNORMAL) CBC (06/06/2023 6:25 PM EDT) [facility] WBC 5.50 4.00 - 10.80 K/uL 06/06/2023 6:42 PM EDT LABORATORY [facility] RBC 4.91 3.85 - 5.15 M/uL 06/06/2023 6:42 PM EDT LABORATORY [facility] HGB 13.1 12.0 - 15.3 g/dL 06/06/2023 6:42 PM EDT LABORATORY [facility] HCT 41.5 36.0 - 45.2 % 06/06/2023 6:42 PM EDT LABORATORY [facility] MCV 84.5 81.5 - 97.5 fL 06/06/2023 6:42 PM EDT LABORATORY [facility] MCH 26.7 27.0 - 34.0 pg 06/06/2023 6:42 PM EDT LABORATORY [facility] MCHC 31.6 32.0 - 36.0 g/dL 06/06/2023 6:42 PM EDT LABORATORY [facility] RDW 17.3 11.5 - 15.5 % 06/06/2023 6:42 PM EDT LABORATORY [facility] PLT 132(L) 140 - 400 K/uL 06/06/2023 6:42 PM EDT LABORATORY [facility] MPV 12.0 6.6 - 11.1 fL 06/06/2023 6:42 PM EDT LABORATORY [facility] nRBCs 0 <=0 /100 WBCs 06/06/2023 6:42 PM EDT LABORATORY [facility] Blood Venous blood specimen / Unknown Venipuncture / Unknown 06/06/2023 6:25 PM EDT 06/06/2023 6:31 PM EDT Carlin Dickson DO LAB BLOOD ORD ERABLES LABORATORY [address] [address] * CRP (INFLAMMATORY MARKER) (06/06/2023 6:25 PM EDT) [facility] CRP (Inflammatory Marker) 3 <=5 mg/L 06/06/2023 7:05 PM EDT LABORATORY [facility] Blood Venous blood specimen / Unknown Venipuncture / Unknown 06/06/2023 6:25 PM EDT 06/06/2023 6:31 PM EDT Carlin Dickson LAB BLOOD ORD ERABLES LABORATORY [address] [address] * CK (06/06/2023 6:25 PM EDT) Pathologist [facility] CK 96 26 - 192 U/L 06/06/2023 7:05 PM EDT LABORATORY [facility] Blood Venous blood specimen / Unknown Venipuncture / Unknown 06/06/2023 6:25 PM EDT 06/06/2023 6:31 PM EDT Carlin Dickson DO LAB BLOOD ORD ERABLES Performing Organization Address [facility] de Phone Number LABORATORY [address] [address] * (ABNORMAL) BNP, NT-PRO (06/06/2023 6:25 PM EDT) Pathologist [facility] BNP, NT-Pro 2,437(H) <300 pg/mL 06/06/2023 7:05 PM EDT LABORATORY [facility] Blood Venous blood specimen / Unknown Venipuncture / Unknown 06/06/2023 6:25 PM EDT 06/06/2023 6:31 PM EDT Narrative LABORATORY [facility] - 06/06/2023 7:05 PM EDT Exclude Heart Failure: <300 pg/mL Diagnose Heart Failure: Age <50 yr: >450 pg/mL 50-75 yr: >900 pg/mL >75 yr: >1800 pg/mL GFR is 30-59 mL/min: >1200 pg/mL or Age-adjusted values GFR <30 mL/min: do not use, not reliable Prognostic threshold: 1000 pg/mL Carlin Dickson DO LAB BLOOD ORD ERABLES Performing Organization Address [facility] de Phone Number LABORATORY [address] [address] * BASIC METABOLIC PANEL (06/06/2023 6:25 PM EDT) Pathologist [facility] BUN 14 6 - 20 mg/dL 06/06/2023 7:05 PM EDT LABORATORY [facility] Creatinine 0.8 0.5 - 1.0 mg/dL 06/06/2023 7:05 PM EDT LABORATORY [facility] Estimated Glomerular Filtration Rate 72 >=60 mL/min 06/06/2023 7:05 PM EDT LABORATORY [facility] Comment:eGFR is calculated b ased on the CKD-EPI 2020 equation Sodium 142 135 - 146 mmol/L 06/06/2023 7:05 PM EDT LABORATORY [facility] Potassium 3.7 3.5 - 5.1 mmol/L 06/06/2023 7:05 PM EDT LABORATORY [facility] Chloride 106 98 - 107 mmol/L 06/06/2023 7:05 PM EDT LABORATORY [facility] CO2 23 22 - 32 mmol/L 06/06/2023 7:05 PM EDT LABORATORY [facility] Anion Gap 13 7 - 15 mmol/L 06/06/2023 7:05 PM EDT LABORATORY [facility] Glucose 103 70 - 120 mg/dL 06/06/2023 7:05 PM EDT LABORATORY [facility] Calcium 9.6 8.4 - 10.2 mg/dL 06/06/2023 7:05 PM EDT LABORATORY [facility] Blood Venous blood specimen / Unknown Venipuncture / Unknown 06/06/2023 6:25 PM EDT 06/06/2023 6:31 PM EDT Carlin Dickson DO LAB BLOOD ORD ERABLES LABORATORY [facility] [address] [place] [address] documented in this encounter Visit Diagnoses Diagnosis Peripheral edema- Primary Edema documented in this encounter Administered Medications Inactive Administered Medications - up to 3 most recent administrations Medication Order MAR Action Action Date Dose Rate Site Acetaminophen (Tylenol) tab 650 mg 650 mg, Oral, ONCE, On Tue06/06/23 at 1900, For 1 dose, Maximum of 4 grams (4000 mg) per day. Given 06/06/2023 6:20 PM EDT 650 mg Furosemide (Lasix) tab 60 mg 60 mg, Oral, ONCE, On Tue06/06/23 at 1945, For 1 dose Given 06/06/2023 7:17 PM EDT 60 mg documented in this encounter Active and Recently Administered Medications Times are shown in EDT. Scheduled Medication Order 06/04/2023 06/05/2023 06/06/2023 Acetaminophen (Tylenol) tab 650 mg (COMPLETED) 650 mg, Oral, ONCE, On Tue06/06/23 at 1900, For 1 dose, Maximum of 4 grams (4000 mg) per day. 1820 (Given - Provid er: Sharmila Hunter RN) Furosemide (Lasix) tab 60 mg (COMPLETED) 60 mg, Oral, ONCE, On 06/06/23 at 1945, For 1 dose 191 (Given - Provid er: Gracy Thomason RN) documented in this encounter Advance Directives Latest [...] the patient have Health Care Power of Packaging Materials Inspector? No Care Teams Forest Products Gatherer Relationship Specialty Start Date End Date Isrrael Bolivar, DO [address] [facility] [place] [id number] PCP - General Family Medicine 11/24/10 documented as of this encounter
--- OUTSIDE RECORDS SUMMARY | 2023-08-03 00:09 | External Medical Summary ---
Author Name Unknown Address Unknown Organization K1F:LABORATORY [facility] - [address] [place] [address] Laboratory Report Ordering Provider Test Date Status MATTEO AVILES 07/30/2023 01:33:03 Final Collect NOW Observation Date Value Abnormality Reference (Units ) Status Troponin T 07/30/2023 01:33:03 17 Above high normal < =14 (ng/L) Final Performing Location LABORATORY [facility] - [address] [place] [address]
--- OUTSIDE RECORDS SUMMARY | 2023-08-03 00:09 | External Medical Summary ---
Author Name Unknown Address Unknown Organization K1F:LABORATORY [facility] - [address] [place] [address] Laboratory Report Ordering Provider Test Date Status GUILLERMO SHANEINGA 06/06/2023 18:25:00 Final Observation Date Value Abnormality Reference (Units ) Status BUN 06/06/2023 18:25:00 14 6-20 (mg/dL) Final Creatinine 06/06/2023 18:25:00 0.8 0.5-1.0 (mg/dL) Final Glomerular filtration rate/1.73 sq M.predicted [Volume Rate/Area] in Serum, Plasma or Blood by Creatinine-based formula (CKD-EPI) 06/06/2023 18:25:00 72 >=60 (mL/min) Final eGFR is calculated based on the CKD-EPI 2020 equation SODIUM 06/06/2023 18:25:00 142 135-146 (m mol/L) Final Potassium 06/06/2023 18:25:00 3.7 3.5-5.1 (m mol/L) Final Cl 06/06/2023 18:25:00 106 98-107 (mm ol/L) Final CO2 06/06/2023 18:25:00 23 22-32 (mmo l/L) Final Anion gap 06/06/2023 18:25:00 13 7-15 (mmol /L) Final Glucose 06/06/2023 18:25:00 103 70-120 (mg /dL) Final Calcium 06/06/2023 18:25:00 9.6 8.4-10.2 ( mg/dL) Final Performing Location LABORATORY [facility] - [address] [place] [address]
--- OUTSIDE RECORDS SUMMARY | 2023-08-03 00:09 | External Medical Summary | Summary of Care ---
Author Name Unknown Organization [facility] Address [address] [place] [address] Phone [phone] Care Team Providers Care Director Of Cardiac Rehabilitation Name Role Phone Isrrael Bolivar DO Primary Care Provider [phone] Reason for Visit * Reason Comments Defibrillator Clinic Encounter Details Date Type Department Care Team Description 04/05/2023 Cardiac Studies Cardiology Elora Delgado [place] [address] [facility] [place] [address] [place] [address] [place] [address] Persistent atrial fibrillation (HCC)*; Non-ischemic cardiomyopathy (HCC); Cardiac arrest (HCC); ICD (implantable cardioverter-defibrill ator), single, in situ Allergies No known active allergiesdocumented as of [...] rillator), single, in situ,Coronary artery disease involving [place] coronary artery of [place] heart without angina pectoris TAKE 1 TABLET [...] as of this encounter Progress Notes * Rosario Steele RN - 04/05/2023 11:26 AM EDT Patient and implanted device were evaluated today in the [facility]. Providers please see scanned report in the Scans tab. Rosario Stelee RN documented in this encounter Plan of Treatment Upcoming Encounters Date Type Specialty Care Team Description 10/11/2023 Office Visit Cardiology Akhil Quintero, DO [address] [place] [address] 04/04/2024 Cardiac Studies Cardiology [place] [address] [place] [address] Scheduled Orders Name Type Priority Associated Diagnoses Orde r Schedule SINGLE-LEAD DEFIBRILLATOR + REPROGRAM Procedures Routine Persistent atrial fibrillation (HCC) Non-ischemic cardiomyopathy (HCC) Cardiac arrest (HCC) ICD (implantable cardioverter-defibrillat or), single, in situ Ordered: 04/05/2023 Health Maintenance Due Date Last Done Comments [...] this encounter Medical Devices Implanted Type Area After School Tutor Device Identifier Shelf Expiration Date Model / Serial / Lot Lens 21.0 [facility] - [id number] - [id number] Implanted:Qty: 1 on 01/28/2023 by Christian Woo DO at OR [facility] Lens Right: Eye [employer] 10/12/2025 CNA0T0.210 / [id number] / Lens 20.5 [facility] - [id number] 135 - [id number] Implanted:Qty: 1 on 01/04/2023 by Christian Woo, at OR [facility] Left: Eye [employer] 07/15/2025 CNA0T0.205 / [id number] / documented as of this encounter Visit Diagnoses Diagnosis Persistent atrial fibrillation (HCC)- Primary Atrial fibrillation Non-ischemic cardiomyopathy (HCC) Other primary cardiomyopathies Cardiac arrest (HCC) Cardiac arrest ICD (implantable cardioverter-defibrillator), single, in situ documented in this encounter Advance Directives Latest [...] the patient have Health Care Power of Fisher Reef Net? No Care Teams Director Of Cardiac Rehabilitation Relationship Specialty Start Date End Date Isrrael Bolivar, DO [address] [place] [address] PCP - General Family Medicine 11/24/10 documented as of this encounter
--- OUTSIDE RECORDS SUMMARY | 2023-08-03 00:09 | External Medical Summary ---
Author Name Unknown Address Unknown Organization K1F:LABORATORY [facility] - [address] [address] Laboratory Report Ordering Provider Test Date Status PANCHITO SHANE 06/06/2023 18:25:00 Final Exclude Heart Failure: <300 pg/mL
Diagnose Heart Failure:
Age <50 yr: >450 pg/mL
50-75 yr: >900 pg/mL
>75 yr: >1800 pg/mL
GFR is 30-59 mL/min: >1200 pg/mL or Age- adjusted values
GFR <30 mL/min: do not use, not reliable

Prognostic threshold: 1000 pg/mL Observation Date Value Abnormality Reference (Units ) Status BNP, Pro-hormone 06/06/2023 18:25:00 2437 Above high no rmal <300 (pg/mL) Final Performing Location LABORATORY [facility] - [address] [place] [address]
--- OUTSIDE RECORDS SUMMARY | 2023-08-03 00:09 | External Medical Summary ---
Author Name Unknown Address Unknown Organization K1F:[facility] - [address] [place] [address] Laboratory Report Ordering Provider Test Date Status PANCHITO SHANE 06/06/2023 18:25:00 Final Observation Date Value Abnormality Reference (Units ) Status WBC, Total 06/06/2023 18:25:00 5.50 4.00-10.80 (K/uL) Final RBC 06/06/2023 18:25:00 4.91 3.85-5.15 (M/uL) Final Hemoglobin 06/06/2023 18:25:00 13.1 12.0-15.3 (g/dL) Final HCT 06/06/2023 18:25:00 41.5 36.0-45.2 (%) Final MCV 06/06/2023 18:25:00 84.5 81.5-97.5 (fL) Final MCH 06/06/2023 18:25:00 26.7 27.0-34.0 (pg) Final MCHC 06/06/2023 18:25:00 31.6 32.0-36.0 (g/dL) Final RDW 06/06/2023 18:25:00 17.3 11.5-15.5 (%) Final Platelets 06/06/2023 18:25:00 132 Below low normal 140-400 (K/uL) Final MPV 06/06/2023 18:25:00 12.0 6.6-11.1 (fL) Final Nucleated erythrocytes/100 leukocytes [Ratio] in Blood by Automated count 06/06/2023 18:25:00 0 <=0 (/100 WBCs) Final Performing Location [facility]ATORY [facility] - [address] [place] [address]
--- OUTSIDE RECORDS SUMMARY | 2023-08-03 00:10 | External Medical Summary | Summary of Care ---
Author Name Unknown Organization [facility] Address [address] [place] [address] Phone [phone] Care Team Providers Care Medical Leader Name Role Phone Isrrael Bolivar DO Primary Care Provider [phone] Reason for Visit * Reason Comments Fall * Auth/Cert Specialty Diagnoses / Procedures Referred By Albin t Referred To Contact Referral ID Status Reason Start Date Expiration Date Visits Re quested Visits Authorized [id number] Encounter Details Date Type Department Care Team Description 03/25/2023 Emergency [facility] ([facility]) [address] [place] [address] Robinson Gamble MD [address], [place] [id number] Fall, initial encounter (Primary Dx) Allergies No known active allergiesdocumented as of this encounter (statuses as of 03/26/2023) Medications Medication Sig Dispensed Refills Start Date [...] a day. 1 Inhaler 0 07/22/2018 Active glipiZIDE ER 2.5 MG Oral Tablet Extended Release 24 Hour Take 2 Tablets by mouth in the morning and 2 Tablets before bedtime. 0 08/15/2018 Active Silver sulfADIAZINE 1 % External Cream [...] rillator), single, in situ,Coronary artery disease involving [place] coronary artery of [place] heart without angina pectoris TAKE 1 TABLET [...] Pain, Severe. 10 Tablet 0 12/24/2022 Active prednisoLONE Acetate 1 % Ophthalmic Suspension (Pred Forte) Instill 1 Drop into the left eye in the morning and 1 Drop at noon and 1 Drop in the evening and 1 Drop before bedtime. 10 mL 1 01/11/2023 Active Apixaban 5 MG Oral Tablet (Eliquis)Indicatio ns:Persistent atrial fibrillation (HCC) TAKE 1 TABLET BY MOUTH 2 times daily 60 Tablet 3 01/27/2023 Active documented as of this encounter (statuses as of 03/26/2023) Active Problems Problem Noted Date Critical limb [...] as of this encounter (statuses as of 03/26/2023) Resolved Problems Problem Noted Date Resolved Date Cardiac/pericardial tamponade 11/02/2022 Hypoxemia 11/24/2018 11/27/2018 Cardiac arrest 11/24/2010 07/14/2011 Ventricular fibrillation 11/24/2010 011 Acute non Q wave myocardial infarction 1 07/14/2011 HTN, goal below 130/80 11/24/2010 2 Overview: Per HTN Protocol #27. documented as of this encounter (statuses as of 03/26/2023) Immunizations Name Administration Dates Next Due Pneumococcal [...] Sign Reading Time Taken Comments Blood Pressure 161/97 03/25/2023 9:07 PM EDT Pulse 77 03/25/2023 9:07 PM EDT Temperature 36.8 C (98.2 F) 03/25/2023 6:59 PM ED T Respiratory Rate 20 03/25/2023 9:07 PM EDT Oxygen Saturation 98% 03/25/2023 9:07 PM EDT Inhaled Oxygen Concentration - - Weight - [...] this encounter Discharge Instructions * Discharge Instructions* Robinson Gamble MD - 03/25/2023 8:58 PM EDT Your head CT and x-rays were negative. Return to the emergency department with frequent falls, leg pain, numbness or tingling in the legs Please return to this Emergency Department or seek emergent care if your symptoms change, worsen significantly, or concern you in any way. Concerning symptoms that would require re-evaluation include, but are not necessarily limited to: - Fevers or shaking chills - Chest pain or difficulty breathing - Severe headache, numbness or tingling, or confusion - Persistent vomiting, severe abdominal pain, abdominal bloating, or bloody bowel movements - Inability to urinate or if your urine is significantly decreased Let us know if you have any questions regarding these instructions or the care you received here before leaving the Emergency Department. Please read the attached pamphlet for more information about your diagnosis and treatment. documented in this encounter Nursing Notes * Los Morton RN - 03/25/2023 8:48 PM EDT Pt here POV with LLE pain after a ground level fall on Eliquis. Pt states that her LLE "gave out onher" while at the store this afternoon. Pt states that she "went down" onto hard avinash. On the way down, she hit her butt off of a shelf. Denies hitting her head or any LOC. States that the only acute pain present is in the LLE, that worsens with weight bearing/transfers/ambulation. Pain 5/10 onpain scale 1908 Alert called. This nurse entered pts room for initial assessment 1909 VS obtained. Peripheral line placed. Labwork collected 1913 Dr Gamble present in room 1922 Portable XR at bedside [address]/XR [address]/XR documented in this encounter ED Notes * Cecelia Benedict RN - 03/25/2023 7:01 PM EDT Patient comes in after she fell twice today. The first time her l knee gave out on her and she felltwisting l lower leg. Swelling to BLE, worse on LLE. Also reports she fell and hit the back of her head and back documented in this encounter Miscellaneous Notes * ED Scroll Shear Operator Note - Los Morton RN - 03/25/2023 9:16 PM EDT Reviewed pts dc instructions with her at the bedside. Peripheral line removed with cath tip intact upon removal. Pt and daughter did verbalize understanding to all topics covered prior to dc. documented in this encounter Plan of Treatment Upcoming Encounters Date Type Specialty Care Team Description 04/05/2023 Office Visit Cardiology Akhil Quintero, DO [address] [place] [address] 04/05/2023 Cardiac Studies Cardiology [facility] [address] [place] [address] 10/11/2023 Cardiac Studies Cardiology [facility] [address] [facility] [place] [address] Health Maintenance Due Date Last Done Comments [...] this encounter Medical Devices Implanted Type Area Behavioral Sciences Department Chair Device Identifier Shelf Expiration Date Model / Serial / Lot Lens 21.0 [facility] [id number] - [id number] Implanted:Qty: 1 on 01/28/2023 by Christian Woo, DO at OR [facility] Lens Right: Eye [employer] 10/12/2025 CNA0T0.210 / [id number] / Lens 20.5 Jerome - [id number] - [id number] Implanted:Qty: 1 on 01/04/2023 by Christian Woo, DO at OR H Left: Eye [employer] 07/15/2025 CNA0T0.205 / [id number] / documented as of this encounter Procedures Procedure Name Priority Date/Time Associated Diagnosis Comments XR CHEST 1 VIEW STAT 03/25/2023 7:42 PM EDT XR ANKLE 3 OR MORE VIEWS STAT 03/25/2023 7:42 PM EDT XR TIB/FIB 2 VIEWS STAT 03/25/2023 7: 42 PM EDT XR KNEE 4 OR MORE VIEWS STAT 03/25/2023 7:42 PM EDT XR PELVIS AP VIEW STAT 03/25/2023 7:4 2 PM EDT EXTRA LIGHT BLUE TOP Routine 03/25/2023 7:41 PM EDT EXTRA TUBES Routine 03/25/2023 7:41 PM EDT DIFFERENTIAL, AUTOMATED STAT 03/25/2023 7:41 PM EDT BNP (NT-PROBNP) STAT 03/25/2023 7:41 PM EDT BASIC METABOLIC PANEL STAT 03/25/2023 7:41 PM EDT CBC WITH WBC DIFFERENTIAL STAT 03/25/2023 7:41 PM EDT CBC STAT 03/25/2023 7:[address] HEAD/BRAIN WO CONTRAST STAT 03/25/2023 7:32 PM EDT documented in this encounter Results * XR ANKLE 3 OR MORE VIEWS (03/25/2023 7:42 PM EDT) Anatomical Region Laterality Modality Ankle, Lower Extremity Digital R adiography 03/25/2023 7:31 PM EDT Impressions 03/25/2023 8:03 PM EDT IMPRESSION: No acute fracture in the left ankle. Mild soft tissue swelling. THIS DOCUMENT HAS BEEN ELECTRONICALLY SIGNED BY CRISPIN BARFIELD MD Narrative 03/25/2023 8:03 PM EDT PROCEDURE INFORMATION: Exam: XR Left Ankle Exam date and time: 03/25/2023 7:31 PM Age: 88 years old Clinical indication: Injury or trauma; Fall; Blunt trauma; Ankle; Left; Additional info: Pain TECHNIQUE: Imaging protocol: Radiologic exam of the left ankle. Views: 3 or more views. COMPARISON: [facility] 01/31/2023 12:57 PM FINDINGS: Bones/joints: No acute fracture or dislocation in the left ankle. Diffuse osteopenia. Soft tissues: Mild soft tissue swelling. Procedure Note Crispin Barfield MD - 03/25/2023 PROCEDURE INFORMATION: Exam: XR Left Ankle Exam date and time: 03/25/2023 7:31 PM Age: 88 years old Clinical indication: Injury or trauma; Fall; Blunt trauma; Ankle; Left; Additional info: Pain TECHNIQUE: Imaging protocol: Radiologic exam of the left ankle. Views: 3 or more views. COMPARISON: [facility] 01/31/2023 12:57 PM FINDINGS: Bones/joints: No acute fracture or dislocation in the left ankle. Diffuse osteopenia. Soft tissues: Mild soft tissue swelling. IMPRESSION IMPRESSION: No acute fracture in the left ankle. Mild soft tissue swelling. THIS DOCUMENT HAS BEEN ELECTRONICALLY SIGNED BY CRISPIN BARFIELD MD Robinson Gamble MD RADIOLOGY (RAD G ENERAL) * XR TIB/FIB 2 VIEWS (03/25/2023 7:42 PM EDT) Anatomical Region Laterality Modality Lower Extremity, TibFib Digital Radiography 03/25/2023 7:31 PM EDT Impressions 03/25/2023 8:05 PM EDT IMPRESSION: No acute findings. THIS DOCUMENT HAS BEEN ELECTRONICALLY SIGNED BY CRISPIN BARFIELD MD Narrative 03/25/2023 8:05 PM EDT PROCEDURE INFORMATION: Exam: XR Left Tibia and Fibula Exam date and time: 03/25/2023 7:31 PM Age: 88 years old Clinical indication: Injury or trauma; Fall; Blunt trauma; Lower leg; Left; Additional info: Pain TECHNIQUE: Imaging protocol: Radiologic exam of the left tibia and fibula. Views: 2 views. COMPARISON: [facility] [employer] 01/31/2023 12:57 PM FINDINGS: Bones/joints: No acute fracture or dislocation in the left tibia or fibula. Soft tissues: Normal. Procedure Note Crispin Barfield MD - 03/25/2023 PROCEDURE INFORMATION: Exam: XR Left Tibia and Fibula Exam date and time: 03/25/2023 7:31 PM Age: 88 years old Clinical indication: Injury or trauma; Fall; Blunt trauma; Lower leg;Left; Additional info: Pain TECHNIQUE: Imaging protocol: Radiologic exam of the left tibia and fibula. Views: 2 views. COMPARISON: [facility] Nor[facility] 01/31/2023 12:57 PM FINDINGS: Bones/joints: No acute fracture or dislocation in the left tibia orfibula. Soft tissues: Normal. IMPRESSION IMPRESSION: No acute findings. THIS DOCUMENT HAS BEEN ELECTRONICALLY SIGNED BY CRISPIN BARFIELD MD Robinson Gamble MD RADIOLOGY (RAD G ENERAL) * XR KNEE 4 OR MORE VIEWS (03/25/2023 7:42 PM EDT) Anatomical Region Laterality Modality Knee, Lower Extremity Digital Ra diography 03/25/2023 7:31 PM EDT Impressions 03/25/2023 8:01 PM EDT IMPRESSION: No acute fracture or dislocation in the left knee. Moderate degenerative changes in the medial tibiofemoral joint space. THIS DOCUMENT HAS BEEN ELECTRONICALLY SIGNED BY CRISPIN BARFIELD MD Narrative 03/25/2023 8:01 PM EDT PROCEDURE INFORMATION: Exam: XR Left Knee Exam date and time: 03/25/2023 7:31 PM Age: 88 years old Clinical indication: Injury or trauma; Fall; Blunt trauma; Knee; Left; Additional info: Pain S/P fall TECHNIQUE: Imaging protocol: Radiologic exam of the left knee. Views: 4 or more views. COMPARISON: DX [email or web address] 04/28/2017 10:10 AM FINDINGS: Bones/joints: No acute fracture or dislocation in the left knee. Moderate narrowing of the medial tibiofemoral joint space minimal spurring of the patella. Soft tissues: Normal. Procedure Note Crispin Barfield MD - 03/25/2023 PROCEDURE INFORMATION: Exam: XR Left Knee Exam date and time: 03/25/2023 7:31 PM Age: 88 years old Clinical indication: Injury or trauma; Fall; Blunt trauma; Knee; Left; Additional info: Pain S/P fall TECHNIQUE: Imaging protocol: Radiologic exam of the left knee. Views: 4 or more views. COMPARISON: DX [email or web address] 04/28/2017 10:10 AM FINDINGS: Bones/joints: No acute fracture or dislocation in the left knee. Moderate narrowing of the medial tibiofemoral joint space minimal spurring of the patella. Soft tissues: Normal. IMPRESSION IMPRESSION: No acute fracture or dislocation in the left knee. Moderate degenerative changes in the medial tibiofemoral joint space. THIS DOCUMENT HAS BEEN ELECTRONICALLY SIGNED BY CRISPIN BARFIELD MD Robinson Gamble MD RADIOLOGY (RAD G ENERAL) * XR PELVIS 1 VIEW (03/25/2023 7:42 PM EDT) Anatomical Region Laterality Modality Pelvis, Lower Extremity Digital Radiography 03/25/2023 7:31 PM EDT Impressions 03/25/2023 8:05 PM EDT IMPRESSION: No acute findings. THIS DOCUMENT HAS BEEN ELECTRONICALLY SIGNED BY CRISPIN BARFIELD MD Narrative 03/25/2023 8:05 PM EDT PROCEDURE INFORMATION: Exam: XR Pelvis Exam date and time: 03/25/2023 7:31 PM Age: 88 years old Clinical indication: Injury or trauma; Fall; Blunt trauma (contusions or hematomas); Does not apply; Hip TECHNIQUE: Imaging protocol: Radiologic exam of the pelvis. Views: 1 or 2 view. COMPARISON: DX [id number] 05/21/2022 10:17 AM FINDINGS: Bones/joints: Unremarkable. No acute fracture. Moderate degenerative changes in the visualized lumbar spine. Soft tissues: Unremarkable. Procedure Note Crispin Barfield MD - 03/25/2023 PROCEDURE INFORMATION: Exam: XR Pelvis Exam date and time: 03/25/2023 7:31 PM Age: 88 years old Clinical indication: Injury or trauma; Fall; Blunt trauma (contusions or hematomas); Does not apply; Hip TECHNIQUE: Imaging protocol: Radiologic exam of the pelvis. Views: 1 or 2 view. COMPARISON: DX [id number] 05/21/2022 10:17 AM FINDINGS: Bones/joints: Unremarkable. No acute fracture. Moderate degenerativechanges in the visualized lumbar spine. Soft tissues: Unremarkable. IMPRESSION IMPRESSION: No acute findings. THIS DOCUMENT HAS BEEN ELECTRONICALLY SIGNED BY CRISPIN BARFIELD MD Robinson Gamble MD RADIOLOGY (RAD G ENERAL) * XR CHEST 1 VIEW (03/25/2023 7:42 PM EDT) Anatomical Region Laterality Modality Chest Digital Radiogra phy 03/25/2023 7:31 PM EDT Impressions 03/25/2023 8:04 PM EDT IMPRESSION: No acute process in the chest. Emphysematous changes. THIS DOCUMENT HAS BEEN ELECTRONICALLY SIGNED BY CRISPIN BARFIELD MD Narrative 03/25/2023 8:04 PM EDT PROCEDURE INFORMATION: Exam: XR Chest Exam date and time: 03/25/2023 7:31 PM Age: 88 years old Clinical indication: Injury or trauma; Fall; Blunt trauma (contusions or hematomas) TECHNIQUE: Imaging protocol: Radiologic exam of the chest. Views: 1 view. COMPARISON: DX (CXR AP X-GEE GRID, CHEST, CXR AP GRID Crosswise) 12/23/2022 7:00 PM FINDINGS: Tubes, catheters and devices: Single lead left chest wall AICD. Lungs: Lungs are mildly emphysematous without focal consolidation. Pleural spaces: Unremarkable. No pleural effusion. No pneumothorax. Heart/Mediastinum: Cardiomediastinal silhouette is enlarged and stable. Bones/joints: Chronic deformity of the right clavicle. No acute fracture. Procedure Note Crispin Barfield MD - 03/25/2023 PROCEDURE INFORMATION: Exam: XR Chest Exam date and time: 03/25/2023 7:31 PM Age: 88 years old Clinical indication: Injury or trauma; Fall; Blunt trauma (contusions or hematomas) TECHNIQUE: Imaging protocol: Radiologic exam of the chest. Views: 1 view. COMPARISON: DX (CXR AP X-GEE GRID, CHEST, CXR AP GRID Crosswise) 12/23/2022 7:00 PM FINDINGS: Tubes, catheters and devices: Single lead left chest wall AICD. Lungs: Lungs are mildly emphysematous without focal consolidation. Pleural spaces: Unremarkable. No pleural effusion. No pneumothorax. Heart/Mediastinum: Cardiomediastinal silhouette is enlarged and stable. Bones/joints: Chronic deformity of the right clavicle. No acutefracture. IMPRESSION IMPRESSION: No acute process in the chest. Emphysematous changes. THIS DOCUMENT HAS BEEN ELECTRONICALLY SIGNED BY CRISPIN BARFIELD MD Robinson Gamble MD RADIOLOGY (RAD G ENERAL) * EXTRA LIGHT BLUE TOP (03/25/2023 7:41 PM EDT) Blood Venous blood specimen / Unknown 03/25/2023 7:41 PM EDT 03/25/2023 7:46 PM EDT Robinson Gamble MD LAB BLOOD [facility] [address] [address] * DIFFERENTIAL, AUTOMATED (03/25/2023 7:41 PM EDT) WBC 10.53 4.00 - 10.80 K/uL 03/25/2023 7:47 PM EDT LABORATORY [facility] Neutrophils % 59.1 40.0 - 75.0 % 03/25/2023 7:47 PM EDT LABORATORY [facility] Lymphocytes % 29.1 18.0 - 42.0 % 03/25/2023 7:47 PM EDT LAB[facility]ATORY [facility] Monocytes % 10.0 1.0 - 11.0 % 03/25/2023 7:47 PM EDT LAB[facility]ATORY [facility] Eosinophils % 1.5 0.0 - 6.0 % 03/25/2023 7:47 PM EDT LAB[facility]ATORY [facility] Basophils % 0.1 0.0 - 2.0 % 03/25/2023 7:47 PM EDT LAB[facility]ATORY [facility] Immature Granulocytes % 0.2 0.0 - 2.0 % 03/25/2023 7:47 PM EDT LAB[facility]ATORY [facility] Absolute Neutrophils 6.23 1.80 - 7.70 K/uL 03/25/2023 7:47 PM EDT LAB[facility]ATORY [facility] Absolute Lymphocytes 3.06 1.00 - 4.80 K/ul 03/25/2023 7:47 PM EDT LAB[facility]ATORY [facility] Absolute Monocytes 1.05 0.00 - 1.10 K/uL 03/25/2023 7:47 PM EDT LABORATORY [facility] Absolute Eosinophils 0.16 0.00 - 0.70 K/uL 03/25/2023 7:47 PM EDT LAB[facility]ATORY [facility] Absolute Basophils 0.01 0.00 - 0.20 K/uL 03/25/2023 7:47 PM EDT LABORATORY [facility] Absolute Immature Granulocytes 0.02 0.00 - 0.20 K/uL 03/25/2023 7:47 PM EDT LAB[facility]ATORY [facility] Blood Venous blood specimen / Unknown Venipuncture / Unknown 03/25/2023 7:41 PM EDT 03/25/2023 7:44 PM EDT Robinson Gamble MD LAB BLOOD [facility] [address] [address] * CBC (03/25/2023 7:41 PM EDT) WBC 10.53 4.00 - 10.80 K/uL 03/25/2023 7:47 PM EDT LABORATORY [facility] RBC 5.04 3.85 - 5.15 M/uL 03/25/2023 7:47 PM EDT LAB[facility] HGB 13.1 12.0 - 15.3 g/dL 03/25/2023 7:47 PM EDT LAB[facility]AT[facility] HCT 42.5 36.0 - 45.2 % 03/25/2023 7:47 PM EDT LAB[facility]AT[facility] MCV 84.3 81.5 - 97.5 fL 03/25/2023 7:47 PM EDT LAB[facility]ATORY [facility] MCH 26.0 27.0 - 34.0 pg 03/25/2023 7:47 PM EDT LAB[facility] MCHC 30.8 32.0 - 36.0 g/dL 03/25/2023 7:47 PM EDT LAB[facility]AT[facility] RDW 17.8 11.5 - 15.5 % 03/25/2023 7:47 PM EDT LAB[facility]ATORY [facility] PLT 150 140 - 400 K/uL 03/25/2023 7:47 PM EDT LABORATORY [facility] MPV 11.7 6.6 - 11.1 fL 03/25/2023 7:47 PM EDT LAB[facility]ATORY [facility] nRBCs 0 <=0 /100 WBCs 03/25/2023 7:47 PM EDT LAB[facility]ATORY [facility] Blood Venous blood specimen / Unknown Venipuncture / Unknown 03/25/2023 7:41 PM EDT 03/25/2023 7:44 PM EDT Robinson Gamble MD LAB BLOOD ORDERA BLES Performing Organization Address City/[facility]/ZIP Co de Phone Number LABORATORY [address] [address] * (ABNORMAL) BNP, NT-PRO (03/25/2023 7:41 PM EDT) BNP, NT-Pro 867(H) <300 pg/mL 03/25/2023 8:17 PM EDT LAB[facility]ORY [facility] Blood Venous blood specimen / Unknown Venipuncture / Unknown 03/25/2023 7:41 PM EDT 03/25/2023 7:44 PM EDT [facility] - 03/25/2023 8:17 PM EDT Exclude Heart Failure: <300 pg/mL Diagnose Heart Failure: Age <50 yr: >450 pg/mL 50-75 yr: >900 pg/mL >75 yr: >1800 pg/mL GFR is 30-59 mL/min: >1200 pg/mL or Age-adjusted values GFR <30 mL/min: do not use, not reliable Prognostic threshold: 1000 pg/mL Robinson Gamble MD LAB BLOOD [facility] Performing Organization Address City/[facility]/ZIP Co de Phone Number LABORATORY [address] [address] * (ABNORMAL) BASIC METABOLIC PANEL (03/25/2023 7:41 PM EDT) BUN 18 6 - 20 mg/dL 03/25/2023 8:17 PM EDT [facility] Creatinine 1.3(H) 0.5 - 1.0 mg/dL 03/25/2023 8:17 PM EDT LAB[facility] Estimated Glomerular Filtration Rate 42(L) >=60 mL/min 03/25/2023 8:17 PM EDT LAB[facility] Comment:eGFR is calculated b ased on the CKD-EPI 2020 equation Sodium 146 135 - 146 mmol/L 03/25/2023 8:17 PM EDT LAB[facility] Potassium 4.1 3.5 - 5.1 mmol/L 03/25/2023 8:17 PM EDT [facility] Chloride 108(H) 98 - 107 mmol/L 03/25/2023 8:17 PM EDT [facility] CO2 30 22 - 32 mmol/L 03/25/2023 8:17 PM EDT [facility] Anion Gap 8 7 - 15 mmol/L 03/25/2023 8:17 PM EDT [facility] Glucose 65(L) 70 - 120 mg/dL 03/25/2023 8:17 PM EDT [facility] Calcium 9.4 8.4 - 10.2 mg/dL 03/25/2023 8:17 PM EDT [facility] Blood Venous blood specimen / Unknown Venipuncture / Unknown 03/25/2023 7:41 PM EDT 03/25/2023 7:44 PM EDT Robinson Gamble MD LAB BLOOD [facility] [address] [place] [address] * CT HEAD/BRAIN WO CONTRAST (03/25/2023 7:32 PM EDT) Anatomical Region Laterality Modality Head Computed Tomogra phy 03/25/2023 8:13 PM EDT Impressions 03/25/2023 8:10 PM EDT IMPRESSION 1. No acute intracranial abnormality detected by CT, and no gross change since prior exam Narrative 03/25/2023 8:[address] HEAD/BRAIN WO CONTRAST-03/25/2023 7:32 pm HISTORY fall struck head COMPARISON CT head from 08/12/2020 TECHNIQUE Axial images obtained through the head without contrast. Sagittal and coronal reconstructed images are also provided. FINDINGS No acute infarction hemorrhage or mass is detected in the cerebrum or posterior fossa. No abnormal extra-axial fluid is appreciated. The cisterns and sulci are clear. No midline or downward shift is appreciated. The brain volume is within normal limits for age, and the ventricles are of normal size and contour. Midline structures appear normally developed and positioned. The craniocervical junction appears normal. No acute paranasal sinus disease is detected. The middle ear cavities are clear. No acute osseous lesion is detected. The visualized portions of the orbits and facial soft tissues show no acute abnormality. Procedure Note Carlyle Delacruz Jr., MD - 03/25/[address] HEAD/BRAIN WO CONTRAST-03/25/2023 7:32 pm HISTORY fall struck head COMPARISON CT head from 08/12/2020 TECHNIQUE Axial images obtained through the head without contrast. Sagittal andcoronal reconstructed images are also provided. FINDINGS No acute infarction hemorrhage or mass is detected in the cerebrum orposterior fossa. No abnormal extra-axial fluid is appreciated. The cisterns and sulci are clear. No midline or downward shift is appreciated. The brain volume is within normal limits for age, and the ventricles areof normal size and contour. Midline structures appear normally developed and positioned. The craniocervical junction appears normal. No acute paranasal sinus disease is detected. The middle ear cavities are clear. No acute osseous lesion is detected. The visualized portions of the orbits and facial soft tissues show noacute abnormality. IMPRESSION IMPRESSION 1. No acute intracranial abnormality detected by CT, and no gross changesince prior exam Robinson Gamble MD RAD CT documented in this encounter Visit Diagnoses Diagnosis Fall, initial encounter- Primary documented in this encounter Administered Medications Inactive Administered Medications - up to 3 most recent administrations Medication Order MAR Action Action Date Dose Rate Site Acetaminophen (Tylenol) tab 975 mg 975 mg, Oral, ONCE, On Tue03/25/23 at 2000, For 1 dose, Maximum of 4 grams (4000 mg) per day. Given 03/25/2023 7:46 PM EDT 975 mg documented in this encounter Active and Recently Administered Medications Times are shown in EDT. Scheduled Medication Order 03/23/2023 03/24/2023 03/25/2023 Acetaminophen (Tylenol) tab 975 mg (COMPLETED) 975 mg, Oral, ONCE, On Tue03/25/23 at 2000, For 1 dose, Maximum of 4 grams (4000 mg) per day. 1946 (Given - Provid er: Los Morotn RN) documented in this encounter Advance Directives [...] the patient have Health Care Power of Dye Maker? No Care Teams Medical Leader Relationship Specialty Start Date End Date Isrrael Bolivar, DO [address] [place] [address] [place] [id number] PCP - General Family Medicine 11/24/10 documented as of this encounter
--- OUTSIDE RECORDS SUMMARY | 2023-08-03 00:10 | External Medical Summary ---
Author Name Unknown Address Unknown Organization K1F:LABORATORY [facility] - [address] [facility] [place] [address] Laboratory Report Ordering Provider Test Date Status YEISON BARFIELD 03/25/2023 19:41:00 Final Observation Date Value Abnormality Reference (Units ) Status SYNC LEUKOCYTES IN BLOOD BY AUTOMATED COUNT 03/25/2023 19:41:00 10.53 4.00-10.80 (K/uL) Final Segs 03/25/2023 19:41:00 59.1 40.0-75.0 (%) Final Lymphs % 03/25/2023 19:41:00 29.1 18.0-42.0 (%) Final Monos 03/25/2023 19:41:00 10.0 1.0-11.0 (%) Final Eosinophils 03/25/2023 19:41:00 1.5 0.0-6.0 (%) Final Basos 03/25/2023 19:41:00 0.1 0.0-2.0 (%) Final Immature Granulocyte, Percent 03/25/2023 19:41:00 0.2 0.0-2.0 (%) Final Absolute Segs 03/25/2023 19:41:00 6.23 1.80-7.70 (K/uL) Final Lymphs, absolute 03/25/2023 19:41:00 3.06 1.00-4.80 (K/ul) Final Monos, Abs 03/25/2023 19:41:00 1.05 0.00-1.10 (K/uL) Final Eos, Abs 03/25/2023 19:41:00 0.16 0.00-0.70 (K/uL) Final Basos, Abs 03/25/2023 19:41:00 0.01 0.00-0.20 (K/uL) Final Immature Granulocytes, Number 03/25/2023 19:41:00 0.02 0.00-0.20 (K/uL) Final Performing Location LABORATORY [facility] - [facility] [address] [place] [address]
--- OUTSIDE RECORDS SUMMARY | 2023-08-03 00:10 | External Medical Summary ---
Author Name Unknown Address Unknown Organization K1F:LABORATORY [facility] - [address] [place] [address] Laboratory Report Ordering Provider Test Date Status YEISON BARFIELD 03/25/2023 19:41:00 Final Exclude Heart Failure: <300 pg/mL
Diagnose Heart Failure:
Age <50 yr: >450 pg/mL
50-75 yr: >900 pg/mL
>75 yr: >1800 pg/mL
GFR is 30-59 mL/min: >1200 pg/mL or Age- adjusted values
GFR <30 mL/min: do not use, not reliable

Prognostic threshold: 1000 pg/mL Observation Date Value Abnormality Reference (Units ) Status BNP, Pro-hormone 03/25/2023 19:41:00 867 Above high no rmal <300 (pg/mL) Final Performing Location LABORATORY [facility] - [address] [place] [address]
--- OUTSIDE RECORDS SUMMARY | 2023-08-03 00:10 | External Medical Summary ---
Author Name Unknown Address Unknown Organization K1F:LABORATORY [facility] - [address] [place] [address] Laboratory Report Ordering Provider Test Date Status YEISON BARFIELD 03/25/2023 19:41:00 Final Observation Date Value Abnormality Reference (Units ) Status BUN 03/25/2023 19:41:00 18 6-20 (mg/dL) Final Creatinine 03/25/2023 19:41:00 1.3 Above high normal 0.5-1.0 (mg/dL) Final Glomerular filtration rate/1.73 sq M.predicted [Volume Rate/Area] in Serum, Plasma or Blood by Creatinine-based formula (CKD-EPI) 03/25/2023 19:41:00 42 Below low normal >=60 (mL/min) Final eGFR is calculated based on the CKD-EPI 2020 equation SODIUM 03/25/2023 19:41:00 146 135-146 (m mol/L) Final Potassium 03/25/2023 19:41:00 4.1 3.5-5.1 (m mol/L) Final Cl 03/25/2023 19:41:00 108 Above high normal 98 -107 (mmol/L) Final CO2 03/25/2023 19:41:00 30 22-32 (mmo l/L) Final Anion gap 03/25/2023 19:41:00 8 7-15 (mmol /L) Final Glucose 03/25/2023 19:41:00 65 Below low normal 70- 120 (mg/dL) Final Calcium 03/25/2023 19:41:00 9.4 8.4-10.2 ( mg/dL) Final Performing Location LABORATORY [facility] - [address] [facility] [place] [address]
--- OUTSIDE RECORDS SUMMARY | 2023-08-03 00:10 | External Medical Summary | Summary of Care ---
Author Name Unknown Organization [facility] Address [address] [place] [address] Phone [phone] Care Team Providers Care Preschool Adviser Name Role Phone Isrrael Bolivar DO Primary Care Provider Reason for Visit * Reason Comments Post Op Cataract Surgery OD 1 week * Evaluate & Treat - Unlimited Visits (Within 30 days (routine)) - Closed Specialty Diagnoses / Procedures Referred By Albin hernandez Referred To Contact Ophthalmology Diagnoses Cataract Phil Mauricio MD [address] [place] [address] Referral ID Status Reason Start Date Expiration Date V isits Requested Visits Authorized [id number] Closed Specialty Services Required 07/26/[phone] Encounter Details Date Type Department Care Team Description 02/04/2023 Office Visit Ophthalmology, [place] [facility] [place] [address] [place] [address] Pseudophakia* Allergies No known active allergiesdocumented as of this encounter (statuses as of 02/04/2023) Medications Medication Sig Dispensed Refills Start Date [...] IN THE MORNING. 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 documented as of this encounter (statuses as of 02/04/2023) Immunizations Name Administration Dates Next Due Pneumococcal [...] (15 years old or older) No 12/25/19 23 Cognitive Status Response Date of Assessm ent Because of a physical, menta l, or emotional condition, do you have serious difficulty concentrating, remembering, or making decisions? (5 years old or older No 12/24/2022 documented as of this encounter Progress Notes * Christian Woo, DO - 02/04/2023 1:00 PM EDT 02/04/2023 [facility] Op[facility] Post-operative Clinic Note HPI: Lillian Feliciano is a 88 year old pt who presents to the eye clinic today for 1 week post-op CE PCIOL OD (Ensor TCC CNA0T0 21.0 01/28/2023). Doing well. 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 Taper prednisolone as directed by one drop weekly - both eyes May stop ocuflox D/c eye shield Gradual return to normal activity levels Call with flashes, floaters, dec vision eye pain. Advised of ping pong table assembler coverage for after hours/weekend emergencies. RTC Dr. Mauricio for return of ophthalmic care or sooner prn. Christian Woo, DO 02/04/23 Lillian Nj Feliciano has undergone successful cataract [facility]04[facility]23she has chosen to complete the remainder of her post-operative period under the care of . A signed copy of this agreement is scanned into [employer]. Copies of her recent post op visit notes have been sent to the receiving provider who has accepted the transfer of care as on 02/05/23 (after the second eye is performed). CC: Dr. Mauricio documented in this encounter Nursing Notes * BEVERLY Miranda - 02/04/2023 1:08 PM EDT Lillian Feliciano presents for p/o check. 1 week post-op ECCE w/IOL insertion Surgical eye RIGHT EYE Patient denies complaints Current Ophthalmic Medications: Pred Forte and Ofloxacin 1gtt 4 times daily in surgical eye Are you taking the drops as directed? Yes documented in this encounter Plan of Treatment Upcoming Encounters Date Type Specialty Care Team Description 04/05/2023 Office Visit Cardiology Akhil Quintero DO [address] [place] [address] 10/11/2023 Cardiac Studies [facility] [address] [place] [address] Health Maintenance Due Date Last Done Comments COVID-19 Vaccine (#1) 1935 Depression Screening, Annual for Pts 12 and Over 1949 DIABETES-FOOT EXAM 1955 DTaP,Tdap,and Td Vaccines (1 - Tdap) 01/22/1956 Zoster Vaccines (1 of 2) 1987 Pneumococcal Vaccine: 65+ Years (2 - PCV) 12/04/2011 12/03/2010 Albumin/Creatinine Ratio 12/03/2015 12/02/2014 *SPIROMETRY ONCE FOR ASTHMA-ADULT 11/07/2016 HgA1C 05/02/2023 11/02/2022, 09/20, 01/31/2022, Additional history exists Influenza Vaccine (FLU shot) (Season Ended) 2023 DIABETES-EYE EXAM 09/07/2023 09/07/2022, , 09/07/2022, [...] this encounter Medical Devices Implanted Type Area Speech Instructor Device Identifier Shelf Expiration Date Model / Serial / Lot Lens 21.0 [employer] - [id number] - [id number] Implanted:Qty: 1 on 01/28/2023 by Christian Woo DO at OR [facility] Lens Right: Eye [employer] 10/12/2025 CNA0T0.210 / [id number] / Lens 20.5 [facility] - [id number] - [id number] Implanted:Qty: 1 on 01/04/2023 by Christian Woo DO at OR [facility] Left: Eye [employer] 07/15/2025 CNA0T0.205 / [id number] / documented as of this encounter Visit Diagnoses Diagnosis Pseudophakia- Primary Lens replaced by other means documented in this encounter Advance Directives Latest [...] the patient have Health Care Power of Child And Family Therapist? No Care Teams Preschool Adviser Relationship Specialty Start Date End Date Isrrael Bolivar, DO [address] [place] [id number] PCP - General Family Medicine 11/24/10 documented as of this encounter
--- OUTSIDE RECORDS SUMMARY | 2023-08-03 00:10 | External Medical Summary ---
Author Name Unknown Address Unknown Organization K1F:LABORATORY [facility] - [address] [place] [address] Laboratory Report Ordering Provider Test Date Status KALIA BARFIELDRICHY 03/25/2023 19:41:00 Final Observation Date Value Abnormality Reference (Units ) Status WBC, Total 03/25/2023 19:41:00 10.53 4.00-10.80 (K/uL) Final RBC 03/25/2023 19:41:00 5.04 3.85-5.15 (M/uL) Final Hemoglobin 03/25/2023 19:41:00 13.1 12.0-15.3 (g/dL) Final HCT 03/25/2023 19:41:00 42.5 36.0-45.2 (%) Final MCV 03/25/2023 19:41:00 84.3 81.5-97.5 (fL) Final MCH 03/25/2023 19:41:00 26.0 27.0-34.0 (pg) Final MCHC 03/25/2023 19:41:00 30.8 32.0-36.0 (g/dL) Final RDW 03/25/2023 19:41:00 17.8 11.5-15.5 (%) Final Platelets 03/25/2023 19:41:00 150 140-400 (K/uL) Final MPV 03/25/2023 19:41:00 11.7 6.6-11.1 (fL) Final Nucleated erythrocytes/100 leukocytes [Ratio] in Blood by Automated count 03/25/2023 19:41:00 0 <=0 (/100 WBCs) Final Performing Location LABORATORY [facility] - [address] [place] [address]
[2023-08-03] MEDS: cefTRIAXone SODIUM 1,000 MG in DEXTROSE 5 % MINI-B 50 ML IV SCH (05:55)
[2023-08-03 07:14] LABS: Basophils # (auto) 0.01 K/uL (0.00-0.20); Basophils % (auto) 0.2 %; Eosinophils # (auto) 0.13 K/uL (0.00-0.50); Eosinophils % (auto) 2.7 %; Hematocrit (blood only) 34.3 % (37.0-47.0); Hemoglobin 10.6 g/dl (12.0-16.0); Immature Granulocytes # (auto) 0.02 K/uL (0.01-0.20); Immature Granulocytes % (auto) 0.4 %; Lymphocytes % (auto) 30.6 %; Mean Corpuscular Hemoglobin 26.6 pg (25.0-34.0); Mean Corpuscular Hgb Conc 30.9 g/dL (32.0-36.0); Mean Corpuscular Volume 86.2 fL (80.0-100.0); Mean Platelet Volume 11.9 fL (9.4-12.4); Monocytes # (auto) 0.57 K/uL (0.11-0.59); Monocytes % (auto) 11.6 %; Neutrophils # (auto) 2.67 K/uL (1.40-6.50); Neutrophils % (auto) 54.5 %; Platelet Count 106 K/uL (130-400); RDW Coefficient of Variation 15.6 % (11.5-14.5); RDW Standard Deviation 49.1 fL (36.4-46.3); Red Blood Count 3.98 M/uL (4.20-5.40)
--- NOTE | 2023-08-03 08:15 | Electrocardiogram Report ---
Test Reason : Blood Pressure : / mmHG Vent. Rate : 074 BPM Atrial Rate : 073 BPM P-R Int : 000 ms QRS Dur : 094 ms QT Int : 388 ms P-R-T Axes : 000 010 083 degrees QTc Int : 430 ms Atrial fibrillation with a competing junctional pacemaker with premature ventricular or aberrantly co nducted complexes Possible Septal infarct , age undetermined Diffuse Nonspecific T wave abnormality Abnormal ECG When compared with ECG of 02-AUG-2023 05:47, Borderline Criteria for is now Present Confirmed by Adama Dumont ([id number]) on 08/03/2023 8:14:40 AM Referred By: REFERRED SELF Confirmed By:Adama Dumont
[2023-08-03] MEDS: METOPROLOL SUCC 25MG EXT REL TAB PO SCH (08:37)
[2023-08-03] MEDS: PANTOprazole 40 MG TAB PO SCH (08:37)
[2023-08-03] MEDS: INSULIN ASPART PER UNIT CHARGE SC SCH ×4 (08:44→20:34)
[2023-08-03] MEDS: FUROSEMIDE 40 MG/4 ML VIAL IV SCH ×2 (08:44→18:28)
[2023-08-03] MEDS: PREGABALIN 150 MG CAP PO SCH ×2 (08:44→20:41)
[2023-08-03 09:32] LABS: Calcium 8.2 mg/dl (8.6-10.3); Potassium 3.8 mmol/L (3.5-5.1)
[2023-08-03 09:52] LABS: BUN Creatinine Ratio 25.3 (10-20); Creatinine Clr Calc Pharmacy 46.5 ml/min; Est GFR (African American) 83.7 ml/min; Est GFR (Non-African American) 72.2 ml/min; Phosphorus 2.2 mg/dl (2.5-4.9)
--- NOTE | 2023-08-03 15:08 | Pulmonology Progress Note ---
Date of Service August 03, 2023 Assessment & Plan (1) Pleural effusion: (2) Acute respiratory failure with hypoxia: (3) CHF (congestive heart failure): (4) Diastolic heart failure: Heart failure chronicity: acute on chronic Qualified Code(s): I50.33 - Acute on chronic diastolic (congestive) heart failure Plan IMPRESSION: 88-year-old female presenting with acute hypoxic respiratory failure in the setting of moderate LEFT-sided pleural effusion. RECOMMENDATIONS: 1. LEFT-sided pleural effusion, hemorrhagic - s/p thoracentesis 08/02 700cc removed. exudative, neutrophil predominant, low pH suggest parapneumonic pleural effusion. Malignancy is still in the differential and not ruled out even though cytology is negative. Chest CT showed a suspicious left pleural thickening that needs to be followed. Clinically patient is much improved. Continue empiric ceftriaxone. Follow up fluid culture. Check repeat CXR today. If there is no reaccumulation of fluid and she continues to feel well she can probably be discharged from pulm standpoint in AM on cefazolin x 7 days. She will need close follow up with pulmonary, repeat CXR in 1 to 2 weeks and follow up CT in 4 weeks. 2. CHF - per cardiology. Admission and Anticipated Discharge Date Admission Date: August 01, 2023 Subjective slept through the night. had brief chest pain that was self-limited. Physical Exam Physical Exam: VITAL SIGNS - Vital signs and nursing notes were reviewed. GENERAL - comfortable. SKIN -bulky erythematous rash noted to the RIGHT lower extremity with dressing in place to the tibial area inferiorly. NOSE - Midline and without cyanosis. MOUTH/OROPHARYNX - Without perioral cyanosis. NECK - Neck with FROM. LUNGS -kyphotic and scoliotic. Auscultation reveals rhonchorous breath sounds focused at the lung bases. No wheezing appreciated. CARDIAC - RRR with S1/S2. No murmur, rubs, or gallops appreciated. EXTREMITIES - Nail clubbing not present. no peripheral cyanosis. Slight pretibial edema present. PSYCH - A&Ox3 and cooperates fully with examiner. Pt is very pleasant and interacts well with examiner. Results & Data Results & Data Vital Signs (Past 12 Hours) Vital Signs Temp Pulse Resp BP Pulse Ox Pulse Ox O2 Del Method 08/03/23 12:17 36.7 C 87 18 109/70 99 Nasal Cannula 11/15/23 08:12 36.3 C L 73 18 112/77 98 Room Air 08/03/23 05:00 92 O2 Del Method O2 Flow Rate O2 Flow Rate 08/03/23 12:17 2 08/03/23 08:12 08/03/23 05:00 Nasal Cannula 2 PG Care Time/CCT Total # of Minutes Spent Total Time Spent with Patient: Total time spent is greater than 50% in coordination of care (as documented) at patient's floor/unit and/or counseling patient: Coding Level of Care Code 55145 SUB INP/OBS CARE 2/35MIN Diagnoses Pleural effusion J90 Acute respiratory failure with hypoxia J96.01 CHF (congestive heart failure) I50.9 Acute on chronic diastolic heart failure I50.33 Heart failure chronicity: acute on chronic
--- NOTE | 2023-08-03 15:15 | Hospitalist Progress Note ---
Date of Service August 03, 2023 Assessment & Plan (1) Chest pain: Plan: 88-year-old female with past medical Hx significant for type 2 diabetes, hyperlipidemia, asthma, history of pneumonia, history of V-fib cardiac arrest in November 2010 s/p single-chamber ICD, history of A-fib, chronic diastolic CHF, critical limb ischemia of left lower extremity with autologous bypass graft with rest pain, hypertension, Takotsubo cardiomyopathy, acute viral pericarditis, history of bilateral cellulitis of lower leg admitted with acute hypoxic respiratory failure in the setting of left sided pleural effusion. Acute hypoxic respiratory Failure Left sided pleural effusion Possible Acute right-sided heart failure Was 86%/saturating on room air hs-troponin elevated and flattened Echo with EF 50-55% CT chest with noted layering of left sided pleural effusion, no PE IV Lasix 40mg BID and home torsemide Monitor daily weights and I's and O's Continue Rocephin Consult cardiology and pulmonology Pulmonology -thoracentesis done on 08/02, repeat chest xray, consider d/c home if no fluid reaccumulation. Diabetes Hold home medications ISS History of V-fib cardiac arrest S/p ICD History of A-fib On metoprolol succinate and Eliquis Eliquis on hold in setting of thoracentesis Hyperlipidemia On statin History of pericarditis On colchicine Diet: DMII DVT prophylaxis: On Eliquis, currently on hold in setting of thoracentesis Full code Admission and Anticipated Discharge Date Admission Date: August 01, 2023 Subjective States that her breathing is still improved. Denied acute concerns. Review of Systems Review of Systems: All systems reviewed & are unremarkable except as noted in Subjective Physical Exam Physical Exam: General: Alert, oriented. No acute distress Skin: No noted rashes or bruises Psych: Appropriate mood and affect HEENT: NC/AT CV: RRR Resp: Breath sounds decreased bilaterally, no increased effort of breathing. Abdomen: Soft, nontender, nondistended. Extremities: No edema in lower extremities bilaterally. Results & Data Results & Data Vital Signs (Past 12 Hours) Vital Signs Temp Pulse Resp BP Pulse Ox Pulse Ox O2 Del Method 08/03/23 12:17 36.7 C 87 18 109/70 99 Nasal Cannula 08/03/23 08:12 36.3 C L 73 18 112/77 98 Room Air 08/03/23 05:00 92 O2 Del Method O2 Flow Rate O2 Flow Rate 08/03/23 12:17 2 08/03/23 08:12 08/03/23 05:00 Nasal Cannula 2 (1) Chest pain Chest pain type: unspecified Qualified Code(s): R07.9 - Chest pain, unspecified
--- NOTE | 2023-08-03 18:33 | XRay Report ---
TWO VIEW CHEST CLINICAL HISTORY: Pneumonia. FINDINGS: AP and lateral portable chest radiographs are compared to study dated 08/01/2023 and correl ated with chest CT dated 08/02/2023. A single lead cardiac AICD is unchanged in position and partiall y obscures the left lower chest. The heart is enlarged noting atherosclerotic calcification of the th oracic aorta. The pulmonary vasculature is noncongested. There is a layering left pleural effusion wi th left basilar consolidation. Trace pleural fluid seen on the right. There is no pneumothorax. The s keletal structures are osteopenic. Compression deformities are noted in the thoracic spine. There is degenerative change hyperkyphosis of the thoracic spine. Arthritic change is seen in the shoulders. IMPRESSION: 1. Cardiomegaly and AICD without radiographic evidence of congestive failure. 2. Layering left pleural effusion with left basilar consolidation. This is similar in appearance to y esterday. 3. Trace pleural fluid is seen on the right. ACT 112: Negative or not required by law. Electronically signed by: Franklin Solo M.D. 08/03/2023 6:30 PM
[2023-08-03] MEDS: ATORVASTATIN 40 MG TAB PO SCH (20:38)
[2023-08-04] MEDS: cefTRIAXone SODIUM 1,000 MG in DEXTROSE 5 % MINI-B 50 ML IV SCH (05:40)
[2023-08-04 07:08] LABS: Basophils # (auto) 0.01 K/uL (0.00-0.20); Basophils % (auto) 0.2 %; Eosinophils # (auto) 0.15 K/uL (0.00-0.50); Eosinophils % (auto) 2.6 %; Hematocrit (blood only) 34.3 % (37.0-47.0); Hemoglobin 10.9 g/dl (12.0-16.0); Immature Granulocytes # (auto) 0.03 K/uL (0.01-0.20); Immature Granulocytes % (auto) 0.5 %; Lymphocytes # (auto) 1.53 K/uL (1.20-3.40); Lymphocytes % (auto) 26.8 %; Mean Corpuscular Hemoglobin 26.7 pg (25.0-34.0); Mean Corpuscular Hgb Conc 31.8 g/dL (32.0-36.0); Mean Corpuscular Volume 84.1 fL (80.0-100.0); Mean Platelet Volume 11.7 fL (9.4-12.4); Monocytes # (auto) 0.58 K/uL (0.11-0.59); Monocytes % (auto) 10.2 %; Neutrophils % (auto) 59.7 %; Platelet Count 141 K/uL (130-400); RDW Coefficient of Variation 15.8 % (11.5-14.5); RDW Standard Deviation 48.1 fL (36.4-46.3); Red Blood Count 4.08 M/uL (4.20-5.40)
[2023-08-04 07:23] LABS: BUN Creatinine Ratio 28.8 (10-20); Calcium 8.7 mg/dl (8.6-10.3); Creatinine Clr Calc Pharmacy 47.8 ml/min; Est GFR (African American) 86.4 ml/min; Est GFR (Non-African American) 74.6 ml/min; Phosphorus 2.2 mg/dl (2.5-4.9); Potassium 3.7 mmol/L (3.5-5.1)
[2023-08-04] MEDS: METOPROLOL SUCC 25MG EXT REL TAB PO SCH (08:33)
[2023-08-04] MEDS: PANTOprazole 40 MG TAB PO SCH (08:33)
[2023-08-04] MEDS: INSULIN ASPART PER UNIT CHARGE SC SCH ×4 (08:34→20:48)
[2023-08-04] MEDS: PREGABALIN 150 MG CAP PO SCH ×2 (08:38→20:52)
[2023-08-04] MEDS: FUROSEMIDE 40 MG/4 ML VIAL IV SCH ×2 (08:38→17:16)
--- NOTE | 2023-08-04 09:04 | Pulmonology Progress Note ---
Date of Service August 04, 2023 Assessment & Plan (1) Pleural effusion: (2) Acute respiratory failure with hypoxia: (3) CHF (congestive heart failure): (4) Diastolic heart failure: Heart failure chronicity: acute on chronic Qualified Code(s): I50.33 - Acute on chronic diastolic (congestive) heart failure Plan IMPRESSION: 88-year-old female presenting with acute hypoxic respiratory failure in the setting of moderate LEFT-sided pleural effusion. RECOMMENDATIONS: 1. LEFT-sided pleural effusion, Hemorrhagic - Thoracentesis 08/02. Likely representing parapneumonic effusion. Cytology negative at this time. Patient continues to improve. She continues with supplemental oxygen. Complete course of antibiotics as previously recommended. Patient with follow-up CT in 4 weeks as previously noted. 2. Acute respiratory failure with hypoxia - In the setting of #1. 3. CHF - Continue with cardiology recommendations. Thank you for allowing us to participate in the care of this patient. Pulmonary service will sign off at this time. Admission and Anticipated Discharge Date Admission Date: August 01, 2023 Subjective Patient seen and evaluated at bedside. Patient states improvement status post thoracentesis. She offers no complaints otherwise. Review of Systems Review of Systems: Unchanged since admission Physical Exam Physical Exam: VITAL SIGNS - Vital signs and nursing notes were reviewed. GENERAL - 88-year-old female appearing her stated age who is in mild respiratory distress. Able to speak in complete sentences though dyspnea is noted during conversation. LUNGS -kyphotic and scoliotic. Auscultation reveals rhonchorous breath sounds focused at the lung bases. No wheezing appreciated. CARDIAC - RRR with S1/S2. No murmur, rubs, or gallops appreciated. PSYCH - A&Ox3 and cooperates fully with examiner. Pt is very pleasant and inte racts well with examiner. Results & Data Results & Data Vital Signs (Past 12 Hours) Vital Signs Temp Pulse Pulse Resp BP Pulse Ox O2 Del Method 08/04/23 07:49 36.5 C 67 18 127/68 95 Nasal Cannula 08/04/23 02:31 36.5 C 67 18 98/60 L 96 Nasal Cannula 08/03/23 23:20 36.4 C L 66 18 101/59 L 95 Nasal Cannula 08/03/23 23:00 74 O2 Flow Rate 08/04/23 07:49 2 08/04/23 02:31 1 08/03/23 23:20 1 08/03/23 23:00 PG Care Time/CCT Total # of Minutes Spent Total Time Spent with Patient: Total time spent is greater than 50% in coordination of care (as documented) at patient's floor/unit and/or counseling patient: Coding Level of Care Code 10868 SUB INP/OBS CARE 2/35MIN Diagnoses Pleural effusion J90 Acute respiratory failure with hypoxia J96.01 CHF (congestive heart failure) I50.9 Acute on chronic diastolic heart failure I50.33 Heart failure chronicity: acute on chronic
[2023-08-04] MEDS ORDERED: POTASSIUM PHOS 3 MMOL/1 ML INFUSION IV STA (10:13)
[2023-08-04] MEDS ORDERED: POTASSIUM PHOSPHATE 15 MMOL in SODIUM CHLORIDE 0.9% 250 ML IV ONE (10:30)
[2023-08-04] MEDS ORDERED: METOPROLOL SUCC 50MG EXT REL TAB PO STA (10:52)
--- NOTE | 2023-08-04 15:28 | Electrocardiogram Report ---
Test Reason : Blood Pressure : / mmHG Vent. Rate : 073 BPM Atrial Rate : 075 BPM P-R Int : 000 ms QRS Dur : 102 ms QT Int : 396 ms P-R-T Axes : 000 026 085 degrees QTc Int : 436 ms Atrial fibrillation with premature ventricular or aberrantly conducted complexes Diffuse Nonspecific T wave abnormality Abnormal ECG When compared with ECG of 03-AUG-2023 05:32, Criteria for Septal infarct are no longer Present Nonspecific T wave abnormality now evident in Anterior leads Confirmed by Adama Dumont ([id number]) on 08/04/2023 3:27:46 PM Referred By: REFERRED SELF Confirmed By:Adama Dumont
--- NOTE | 2023-08-04 15:43 | Hospitalist Progress Note ---
Date of Service August 04, 2023 Assessment & Plan (1) Chest pain: Plan: 88-year-old female with past medical Hx significant for type 2 diabetes, hyperlipidemia, asthma, history of pneumonia, history of V-fib cardiac arrest in November 2010 s/p single-chamber ICD, history of A-fib, chronic diastolic CHF, critical limb ischemia of left lower extremity with autologous bypass graft with rest pain, hypertension, Takotsubo cardiomyopathy, acute viral pericarditis, history of bilateral cellulitis of lower leg admitted with acute hypoxic respiratory failure in the setting of left sided pleural effusion. Acute hypoxic respiratory Failure Left sided pleural effusion Possible Acute right-sided heart failure Was 86%/saturating on room air hs-troponin elevated and flattened Echo with EF 50-55% CT chest with noted layering of left sided pleural effusion, no PE IV Lasix 40mg BID and home torsemide Monitor daily weights and I's and O's Continue Rocephin Consult cardiology and pulmonology Pulmonology -thoracentesis done on 08/02, repeat chest xray on 08/03 pt states she feels like breathing is worsened on 08/04 appreciate pulm recs- consider further imaging Diabetes Hold home medications ISS History of V-fib cardiac arrest S/p ICD History of A-fib On metoprolol succinate and Eliquis Eliquis on hold in setting of thoracentesis- re-started Noted bigeminy, PVCs on 08/04- reached out to cardiology recommended increasing b-meera dose and optimizing potassium. Hyperlipidemia On statin History of pericarditis On colchicine Diet: DMII DVT prophylaxis: On Eliquis, restarted Full code Dispo: Home with , needs 2 step Admission and Anticipated Discharge Date Admission Date: August 01, 2023 Subjective States that her breathing seems to be worsening. Had not yet been evaluated by pulm. Otherwise denied acute concerns. Review of Systems Review of Systems: All systems reviewed & are unremarkable except as noted in Subjective Physical Exam Physical Exam: General: Alert, oriented. No acute distress Skin: No noted rashes or bruises Psych: Appropriate mood and affect HEENT: NC/AT CV: RRR Resp: Breath sounds decreased bilaterally, no increased effort of breathing. Abdomen: Soft, nontender, nondistended. Extremities: No edema in lower extremities bilaterally. Results & Data Results & Data Vital Signs (Past 12 Hours) Vital Signs Temp Pulse Pulse Resp BP Pulse Ox O2 Del Method 08/04/23 11:20 36.4 C L 84 20 135/72 98 Nasal Cannula 08/04/23 09:23 76 08/04/23 09:14 Nasal Cannula 08/04/23 07:49 36.5 C 67 18 127/68 95 Nasal Cannula O2 Flow Rate 08/04/23 11:20 2 08/04/23 09:23 08/04/23 09:14 1 08/04/23 07:49 2 (1) Chest pain Chest pain type: unspecified Qualified Code(s): R07.9 - Chest pain, unspecified
[2023-08-04] MEDS: APIXABAN 5 MG TABLET PO SCH (20:48)
[2023-08-04] MEDS: ATORVASTATIN 40 MG TAB PO SCH (20:49)
[2023-08-05] MEDS: cefTRIAXone SODIUM 1,000 MG in DEXTROSE 5 % MINI-B 50 ML IV SCH (06:02)
[2023-08-05 07:43] LABS: Basophils # (auto) 0.01 K/uL (0.00-0.20); Basophils % (auto) 0.2 %; Eosinophils # (auto) 0.17 K/uL (0.00-0.50); Eosinophils % (auto) 3.5 %; Hemoglobin 10.7 g/dl (12.0-16.0); Immature Granulocytes # (auto) 0.01 K/uL (0.01-0.20); Immature Granulocytes % (auto) 0.2 %; Lymphocytes # (auto) 1.57 K/uL (1.20-3.40); Mean Corpuscular Hemoglobin 26.6 pg (25.0-34.0); Mean Corpuscular Hgb Conc 31.5 g/dL (32.0-36.0); Mean Corpuscular Volume 84.4 fL (80.0-100.0); Mean Platelet Volume 11.7 fL (9.4-12.4); Monocytes # (auto) 0.52 K/uL (0.11-0.59); Monocytes % (auto) 10.6 %; Neutrophils # (auto) 2.63 K/uL (1.40-6.50); Neutrophils % (auto) 53.5 %; Platelet Count 162 K/uL (130-400); RDW Coefficient of Variation 15.3 % (11.5-14.5); RDW Standard Deviation 46.9 fL (36.4-46.3); Red Blood Count 4.03 M/uL (4.20-5.40); White Blood Count 4.91 K/ul (4.8-10.8)
[2023-08-05 07:58] LABS: Albumin Globulin Ratio 1.3 (0.9-2); Albumin Level 3.2 gm/dl (3.4-5.0); BUN Creatinine Ratio 30.3 (10-20); Bilirubin,Total 0.4 mg/dl (0.2-1.0); Creatinine Clr Calc Pharmacy 45.9 ml/min; Est GFR (African American) 82.3 ml/min; Globulin 2.4 gm/dl (2.5-4.0); Phosphorus 2.5 mg/dl (2.5-4.9); Potassium 3.8 mmol/L (3.5-5.1); Total Protein 5.6 gm/dl (6.0-8.3)
[2023-08-05] MEDS: FUROSEMIDE 40 MG/4 ML VIAL IV SCH ×2 (08:07→16:48)
[2023-08-05] MEDS: APIXABAN 5 MG TABLET PO SCH ×2 (08:08→20:44)
[2023-08-05] MEDS: PREGABALIN 150 MG CAP PO SCH ×2 (08:08→20:45)
[2023-08-05] MEDS: INSULIN ASPART PER UNIT CHARGE SC SCH ×4 (08:09→20:53)
[2023-08-05] MEDS: PANTOprazole 40 MG TAB PO SCH (08:09)
[2023-08-05] MEDS: METOPROLOL SUCC 25MG EXT REL TAB PO SCH (08:09)
--- NOTE | 2023-08-05 10:37 | XRay Report ---
XR chest 1V portable HISTORY: Follow-up left pleural effusion COMPARISON: Chest 08/03/2023. FINDINGS: Small to moderate left pleural effusion and left basilar densities have slightly improved. The heart remains mildly enlarged. There is a left-sided pacemaker/defibrillator again noted. Slightl y rotated study. No pneumothorax. No new focal lung consolidations. No evidence for pulmonary edema. IMPRESSION: Slight improvement in the small to moderate left pleural effusion and left basilar densities. ACT 112: Negative or not required by law. Electronically signed by: Doron Hernandez M.D. 08/05/2023 10:34 AM
--- NOTE | 2023-08-05 11:47 | Discharge Summary ---
Discharge Summary Date of Service August 05, 2023 Admission HPI Per Admitting Provider 88-year-old female with past medical significant for type 2 diabetes, hyperlipidemia, asthma, history of pneumonia, history of V-fib cardiac arrest in November 2010 s/p single-chamber ICD. Had cardiac catheter no significant CAD seen, history of A-fib, history of chronic diastolic CHF, history of critical limb ischemia of left lower extremity with autologous bypass graft , history of hypertension, history of Takotsubo cardiomyopathy, history of acute viral pericarditis history of bilateral cellulitis of lower leg, history of acute thoracic back pain who lives alone, ambulates with cane comes with ongoing chest pain for last 4 days. Patient says the pain is in the left chest. It was constant pain for last 4 days but now it eased up. She was in [facility] y for chest pain work-up was negative and was discharged comes in because pain is still present. Denies any headache. Vision is okay. No runny nose or sore throat. Has some cough. No fevers. Denies any shortness of breath. But oxygen is 86% room air, currently saturating ok with oxygen supplementation by nasal cannula. Denies nausea vomiting. No abdominal pain. Normal bowel and bladder movements. Hemodynamics stable. Past medical history. As mentioned above Past surgical history. Cardiac cath. ICD plantation. Pericardiocentesis, cataracts, femoral-popliteal bypass left side , thrombectomy on the left side. Social history. . Lives alone. No smoking. No alcohol. No drug use. Family history. Brother had cancer. Sister had breast and lung cancer. Mother had heart disorder. Father had lung disorder. Principal Dx & Hospital Course #1 = Principal Diagnosis (1) Chest pain: 88-year-old female with past medical Hx significant for type 2 diabetes, hyperlipidemia, asthma, history of pneumonia, history of V-fib cardiac arrest in November 2010 s/p single-chamber ICD, history of A-fib, chronic diastolic CHF, critical limb ischemia of left lower extremity with autologous bypass graft with rest pain, hypertension, Takotsubo cardiomyopathy, acute viral pericarditis, history of bilateral cellulitis of lower leg admitted with acute hypoxic respiratory failure in the setting of left sided pleural effusion. Acute hypoxic respiratory Failure Left sided pleural effusion Possible Acute right-sided heart failure Was 86%/saturating on room air hs-troponin elevated and flattened Echo with EF 50-55% CT chest with noted layering of left sided pleural effusion, no PE IV Lasix 40mg BID and home torsemide Monitor daily weights and I's and O's Continue Rocephin Consult cardiology and pulmonology Pulmonology -thoracentesis done on 08/02, repeat chest xray on 08/03 pt states she feels like breathing is worsened on 08/04 appreciate pulm recs- consider further imaging Diabetes Hold home medications ISS History of V-fib cardiac arrest S/p ICD History of A-fib On metoprolol succinate and Eliquis Eliquis on hold in setting of thoracentesis- re-started Noted bigeminy, PVCs on 08/04- reached out to cardiology recommended increasing b-meera dose and optimizing potassium. Hyperlipidemia On statin History of pericarditis On colchicine Diet: DMII DVT prophylaxis: On Eliquis, restarted Full code Dispo: Home with HH, needs 2 step Discharge Exam General: Alert, oriented. No acute distress Skin: No noted rashes or bruises Psych: Appropriate mood and affect HEENT: NC/AT CV: RRR Resp: Breath sounds decreased bilaterally, no increased effort of breathing. Abdomen: Soft, nontender, nondistended. Extremities: No edema in lower extremities bilaterally. Updated Medication List Medication Instructions Recorded Confirmed Type apixaban 5 mg tablet (Eliquis) 5 mg BID 03/18/20 07/31/23 History atorvastatin 40 mg tablet (Lipitor) 40 mg PO HS 03/18/20 07/31/23 History glipizide 2.5 mg tablet, extended 2.5 mg PO BID 03/18/20 07/31/23 History release 24 hr nitroglycerin 0.4 mg sublingual 0.4 mg sublingual DIRECTED PRN 03/18/20 07/31/23 History tablet (Nitrostat) Chest Pain torsemide 20 mg tablet 40 mg PO DAILY 03/18/20 07/31/23 History alendronate 70 mg tablet 70 mg PO WK 07/31/23 07/31/23 History colchicine 0.6 mg tablet 0.6 mg PO DAILY 07/31/23 07/31/23 History empagliflozin 25 mg tablet 25 mg PO DAILY 07/31/23 07/31/23 History (Jardiance) metoprolol succinate 25 mg 12.5 mg PO DAILY 07/31/23 07/31/23 History tablet,extended release 24 hr omeprazole 20 mg capsule,delayed 20 mg PO DAILY 07/31/23 07/31/23 History release pregabalin 150 mg capsule 150 mg PO BID 07/31/23 07/31/23 History Hospital Stay Data Consultations 08/01/23 02:11 ED Decision to Admit Stat 08/01/23 08:00 Consult Cardiology Routine 08/01/23 10:25 Consult Pulmonology Routine Diagnostic Imagining Performed 07/31/23 23:20 CT for pulmonary embolism PE [CT angio chest PE protocol] Stat 08/02/23 08:50 sono, invasive monitoring [US point of care ultrasound] Urgent 08/02/23 10:48 CT chest diagnostic wo con Urgent
--- NOTE | 2023-08-05 16:51 | Hospitalist Progress Note ---
Date of Service August 05, 2023 Assessment & Plan (1) Acute respiratory failure with hypoxia: (2) Pleural effusion: (3) CHF (congestive heart failure): (4) ICD (implantable cardioverter-defibrillator) in place: (5) Cardiac arrest with ventricular fibrillation: (6) Non-occlusive coronary artery disease: (7) Diastolic heart failure: (8) Chronic a-fib: (9) Chest pain: Plan 88-year-old female with past medical Hx significant for type 2 diabetes, hyperlipidemia, asthma, history of pneumonia, history of V-fib cardiac arrest in November 2010 s/p single-chamber ICD, history of A-fib, chronic diastolic CHF, critical limb ischemia of left lower extremity with autologous bypass graft with rest pain, hypertension, Takotsubo cardiomyopathy, acute viral pericarditis, history of bilateral cellulitis of lower leg admitted with acute hypoxic respiratory failure in the setting of left sided pleural effusion. Acute hypoxic respiratory Failure Left sided pleural effusion Possible Acute right-sided heart failure Was 86% saturating on room air on admission hs-troponin elevated and flattened Echo with EF 50-55% CT chest with noted layering of left sided pleural effusion, no PE IV Lasix 40mg BID switched to home torsemide 40mg daily Monitor daily weights and I's and O's transitioned from Rocephin which she received for 5 days to PO cefdinir Consulted cardiology and pulmonology- appreciate recs Cardiology recs -discontinue colchicine -torsemide 40mg daily -resume DOAC -consider MADALYN/ARB in setting of DMII once BP can tolerate -Lidocaine patch for rib pain, suspect MSK in origin Pulmonology rec -thoracentesis done on 08/02, repeat chest xray on 08/03 -given repeat rib pain on 08/05- monitor overnight and repeat non con chest CT if happens again/persistent 2 STEP on 08/05- pt does NOT require oxygen with ambulation or at rest. Diabetes Hold home medications ISS consider MADALYN/ARB in setting of DMII once BP can tolerate per current recommendations History of V-fib cardiac arrest S/p ICD History of A-fib On metoprolol succinate and Eliquis Eliquis on hold in setting of thoracentesis- re-started Noted bigeminy, PVCs on 08/04- reached out to cardiology recommended increasing b-meera dose and optimizing potassium. Continue increased dose of metoprolol succinate 25mg daily Hyperlipidemia On statin History of pericarditis On colchicine, per Cardiology discontinue Diet: DMII DVT prophylaxis: On Eliquis Full code Dispo: Home with HH, needs 2 step Admission and Anticipated Discharge Date Admission Date: August 01, 2023 Subjective States that her breathing seems to be worsening again but notes much better than when she came in. Notified by nursing that she was having rib pain under her left breast again. Pain is not new. Had it when she was admitted. Otherwise denied acute concerns. Review of Systems Review of Systems: All systems reviewed & are unremarkable except as noted in Subjective Physical Exam Physical Exam: General: Alert, oriented. No acute distress Skin: No noted rashes or bruises Psych: Appropriate mood and affect HEENT: NC/AT CV: Irregular rate and rhythm Resp: Breath sounds decreased bilaterally, no increased effort of breathing. Abdomen: Soft, nontender, nondistended. Extremities: No edema in lower extremities bilaterally. Results & Data Results & Data Vital Signs (Past 12 Hours) Vital Signs Temp Pulse Pulse Pulse Pulse Resp Resp 08/05/23 15:36 71 08/05/23 15:34 36.6 C 72 18 08/05/23 11:01 36.8 C 63 18 08/05/23 10:14 89 72 16 08/05/23 09:38 62 08/05/23 08:30 08/05/23 07:43 36.8 C 75 16 Resp BP Pulse Ox Pulse Ox Pulse Ox O2 Del Method O2 Flow Rate 08/05/23 15:36 08/05/23 15:34 103/64 90 Room Air 08/05/23 11:01 102/64 91 Room Air 08/05/23 10:14 14 90 95 08/05/23 09:38 08/05/23 08:30 Nasal Cannula 1 08/05/23 07:43 113/74 95 Nasal Cannula 2 (7) Diastolic heart failure Heart failure chronicity: acute on chronic Qualified Code(s): I50.33 - Acute on chronic diastolic (congestive) heart failure (9) Chest pain Chest pain type: unspecified Qualified Code(s): R07.9 - Chest pain, unspecified
[2023-08-05] MEDS ORDERED: LIDOCAINE 5% 1 PATCH TD STA (17:04)
[2023-08-05] MEDS: ATORVASTATIN 40 MG TAB PO SCH (20:44)
[2023-08-05] MEDS: CEFDINIR 300 MG CAP PO SCH (20:56)
[2023-08-06 07:55] LABS: Basophils # (auto) 0.01 K/uL (0.00-0.20); Basophils % (auto) 0.2 %; Eosinophils # (auto) 0.09 K/uL (0.00-0.50); Eosinophils % (auto) 1.6 %; Hematocrit (blood only) 38.5 % (37.0-47.0); Hemoglobin 12.3 g/dl (12.0-16.0); Immature Granulocytes # (auto) 0.01 K/uL (0.01-0.20); Immature Granulocytes % (auto) 0.2 %; Lymphocytes # (auto) 1.41 K/uL (1.20-3.40); Lymphocytes % (auto) 25.1 %; Mean Corpuscular Hemoglobin 26.6 pg (25.0-34.0); Mean Corpuscular Hgb Conc 31.9 g/dL (32.0-36.0); Mean Corpuscular Volume 83.2 fL (80.0-100.0); Mean Platelet Volume 11.8 fL (9.4-12.4); Monocytes # (auto) 0.48 K/uL (0.11-0.59); Monocytes % (auto) 8.5 %; Neutrophils # (auto) 3.62 K/uL (1.40-6.50); Neutrophils % (auto) 64.4 %; Platelet Count 203 K/uL (130-400); RDW Coefficient of Variation 15.6 % (11.5-14.5); Red Blood Count 4.63 M/uL (4.20-5.40); White Blood Count 5.62 K/ul (4.8-10.8)
[2023-08-06 08:04] LABS: Albumin Level 3.5 gm/dl (3.4-5.0); Bilirubin,Total 0.7 mg/dl (0.2-1.0); Calcium 9.8 mg/dl (8.6-10.3); Potassium 3.7 mmol/L (3.5-5.1)
[2023-08-06 08:10] LABS: Albumin Globulin Ratio 1.3 (0.9-2); Creatinine Clr Calc Pharmacy 43.6 ml/min; Est GFR (African American) 77.4 ml/min; Est GFR (Non-African American) 66.8 ml/min; Globulin 2.7 gm/dl (2.5-4.0); Phosphorus 2.4 mg/dl (2.5-4.9); Total Protein 6.2 gm/dl (6.0-8.3)
[2023-08-06] MEDS: PREGABALIN 150 MG CAP PO SCH (08:50)
[2023-08-06] MEDS: INSULIN ASPART PER UNIT CHARGE SC SCH ×2 (08:50→12:01)
[2023-08-06] MEDS: PANTOprazole 40 MG TAB PO SCH (08:51)
[2023-08-06] MEDS: CEFDINIR 300 MG CAP PO SCH (08:51)
[2023-08-06] MEDS: APIXABAN 5 MG TABLET PO SCH (08:51)
[2023-08-06] MEDS: METOPROLOL SUCC 25MG EXT REL TAB PO SCH (08:52)
[2023-08-06] MEDS ORDERED: TORSEMIDE 10 MG TAB PO SCH (09:00)
[2023-08-06] MEDS ORDERED: POT PHOSPHATE MONOBASIC W/ SOD TAB PO ONE (09:23)
--- NOTE | 2023-08-06 13:24 | Discharge Summary ---
Discharge Summary Date of Service August 06, 2023 Notes For Next Care Provider Acute respiratory failure in setting of left pleural effusion Cardiology recommending: -discontinue colchicine -torsemide 40mg daily -resume DOAC -consider MADALYN/ARB in setting of DMII once BP can tolerate -Lidocaine patch for rib pain, suspect MSK in origin Pulmonology recommending: -recommending repeat CT chest in 4 weeks s/p thoracentesis on 08/02 Pt did not need oxygen at rest or with ambulation at time of discharge. Medication Changes From Visit Per cardiology, discontinue colchicine Metoprolol succinate dose increased to 25mg daily. Cefdinir 300mg BID x 4 more days Admission HPI Per Admitting Provider 88-year-old female with past medical significant for type 2 diabetes, hyperlipidemia, asthma, history of pneumonia, history of V-fib cardiac arrest in November 2010 s/p single-chamber ICD. Had cardiac catheter no significant CAD seen, history of A-fib, history of chronic diastolic CHF, history of critical limb ischemia of left lower extremity with autologous bypass graft , history of hypertension, history of Takotsubo cardiomyopathy, history of acute viral pericarditis history of bilateral cellulitis of lower leg, history of acute thoracic back pain who lives alone, ambulates with cane comes with ongoing chest pain for last 4 days. Patient says the pain is in the left chest. It was constant pain for last 4 days but now it eased up. She was in [place] ER yesterday for chest pain work-up was negative and was discharged comes in because pain is still present. Denies any headache. Vision is okay. No runny nose or sore throat. Has some cough. No fevers. Denies any shortness of breath. But oxygen is 86% room air, currently saturating ok with oxygen supplementation by nasal cannula. Denies nausea vomiting. No abdominal pain. Normal bowel and bladder movements. Hemodynamics stable. Past medical history. As mentioned above Past surgical history. Cardiac cath. ICD plantation. Pericardiocentesis, cataracts, femoral-popliteal bypass left side , thrombectomy on the left side. Social history. . Lives alone. No smoking. No alcohol. No drug use. Family history. Brother had cancer. Sister had breast and lung cancer. Mother had heart disorder. Father had lung disorder. Admission Exam Per Admitting Provider General- Not in distress. Head- atraumatic Eyes- PERRL. ENT- oropharynx clear Neck- supple, no JVD. Lungs- clear to auscultation b/l mild wheezing Heart- regular rhythm; no murmur, no gallop. Abdomen- normal bowel sounds, soft, nontender, no distension. Extremities- b/l lower extremity edema seen. superficial ulcer see on right thakur. Neuro- alert, oriented x 3; PERRL,; no facial palsy; no dysarthria; moves extremities Principal Dx & Hospital Course #1 = Principal Diagnosis (1) Acute respiratory failure with hypoxia: (2) Pleural effusion: (3) CHF (congestive heart failure): (4) ICD (implantable cardioverter-defibrillator) in place: (5) Cardiac arrest with ventricular fibrillation: (6) Non-occlusive coronary artery disease: (7) Diastolic heart failure: (8) Chronic a-fib: (9) Chest pain: Plan 88-year-old female with past medical Hx significant for type 2 diabetes, hyperlipidemia, asthma, history of pneumonia, history of V-fib cardiac arrest in November 2010 s/p single-chamber ICD, history of A-fib, chronic diastolic CHF, critical limb ischemia of left lower extremity with autologous bypass graft with rest pain, hypertension, Takotsubo cardiomyopathy, acute viral pericarditis, history of bilateral cellulitis of lower leg admitted with acute hypoxic respiratory failure in the setting of left sided pleural effusion. Acute hypoxic respiratory Failure Left sided pleural effusion Possible Acute right-sided heart failure Was 86% saturating on room air on admission hs-troponin elevated and flattened Echo with EF 50-55% CT chest with noted layering of left sided pleural effusion, no PE Treated with IV Lasix 40mg BID which was later deescalated back to her home torsemide 40mg daily. Also had a thoracentesis on 08/02 Received Rocephin and PO cefdinir for a total of 6 days, discharged with 4 more days. Consulted cardiology and pulmonology- appreciate recs Cardiology recs -discontinue colchicine -torsemide 40mg daily -resume DOAC -consider MADALYN/ARB in setting of DMII once BP can tolerate -Lidocaine patch for rib pain, suspect MSK in origin Pulmonology recs -thoracentesis done on 08/02, repeat chest xray on 08/03 -recommending repeat CT chest in 4 weeks 2 STEP on 08/05- pt does NOT require oxygen with ambulation or at rest. Close cardiology, pulmonology and PCP followup after discharge. Diabetes ISS while hospitalized Resume home medications after discharge Consider MADALYN/ARB in setting of DMII once BP can tolerate per current recommendations. PCP follow up. History of V-fib cardiac arrest S/p ICD History of A-fib On metoprolol succinate and Eliquis, continue Noted bigeminy, PVCs on 08/04- reached out to cardiology recommended increasing b-meera dose and optimizing potassium. Continue increased dose of metoprolol succinate 25mg daily after discharge Hyperlipidemia On statin History of pericarditis On colchicine Cardiology recommending discontinuation. Per Cardiology: "Colchicine discontinued this admission as patient completed 3 months of therapy for first occurrence viral pericarditis. No symptoms or EKG findings suggestive of pericarditis. Echo this admission without pericardial effusion." Discharge Exam General: Alert, oriented. No acute distress Skin: No noted rashes or bruises Psych: Appropriate mood and affect HEENT: NC/AT CV: Irregular rate and rhythm Resp: Breath sounds decreased bilaterally, no increased effort of breathing. Abdomen: Soft, nontender, nondistended. Extremities: No edema in lower extremities bilaterally. Updated Medication List Medication Instructions Recorded Confirmed Type apixaban 5 mg tablet (Eliquis) 5 mg BID 03/18/20 07/31/23 History atorvastatin 40 mg tablet (Lipitor) 40 mg PO HS 03/18/20 07/31/23 History glipizide 2.5 mg tablet, extended 2.5 mg PO BID 03/18/20 07/31/23 History release 24 hr nitroglycerin 0.4 mg sublingual 0.4 mg sublingual DIRECTED PRN 03/18/20 07/31/23 History tablet (Nitrostat) Chest Pain torsemide 20 mg tablet 40 mg PO DAILY 03/18/20 07/31/23 History alendronate 70 mg tablet 70 mg PO WK 07/31/23 07/31/23 History empagliflozin 25 mg tablet 25 mg PO DAILY 07/31/23 07/31/23 History (Jardiance) omeprazole 20 mg capsule,delayed 20 mg PO DAILY 07/31/23 07/31/23 History release pregabalin 150 mg capsule 150 mg PO BID 07/31/23 07/31/23 History cefdinir 300 mg capsule 300 mg PO BID #14 caps 08/06/23 Rx lidocaine 5 % topical patch See Rx Instructions topical 08/06/23 Rx .COMPLEX #30 ea metoprolol succinate 25 mg 25 mg PO DAILY #30 tabs 08/06/23 Rx tablet,extended release 24 hr Hospital Stay Data Consultations 08/01/23 02:11 ED Decision to Admit Stat 08/01/23 08:00 Consult Cardiology Routine 08/01/23 10:25 Consult Pulmonology Routine Diagnostic Imagining Performed 07/31/23 23:20 CT for pulmonary embolism PE [CT angio chest PE protocol] Stat 08/02/23 08:50 sono, invasive monitoring [US point of care ultrasound] Urgent 08/02/23 10:48 CT chest diagnostic wo con Urgent Chest X-Ray 07/31/23 19:38 XR chest 1V not portable CLINICAL HISTORY: Chest pain, nonspecific TECHNIQUE: Single frontal radiograph of the chest was obtained. Comparison: None available at the time of this dictation. FINDINGS: Pacemaker defibrillator is seen. Calcified aortic knob is seen. The lungs are clear. No evidence of pleural effusion or pneumothorax. IMPRESSION: No acute chest disease. ACT 112: Negative or not required by law. Electronically signed by: Jerry Salinas M.D. 08/01/2023 8:01 AM Chest CTA 07/31/23 23:20 Exam(s): CTA CHEST IV Amt: 115 ml optiray 320 EXAM: CT Angiography Chest With Intravenous Contrast CLINICAL HISTORY: PE. TECHNIQUE: Axial computed tomographic angiography images of the chest with intravenous contrast. CTDI is 43.98 mGy and DLP is 632.65 mGy-cm. Automated exposure control was utilized for the study. A dose lowering technique was utilized adhering to the principles of ALARA. MIP reconstructed images were created and reviewed. COMPARISON: No relevant prior studies available. FINDINGS: Limitations: Evaluation is limited by respiratory artifact and accentuated kyphosis. Pulmonary arteries: Accounting for extensive respiratory artifact, there is no definite evidence for pulmonary embolism. The majority of the distal subsegmental pulmonary artery branches are of nondiagnostic quality. Aorta: No acute findings. No thoracic aortic aneurysm. Lungs: Unremarkable. No mass. No consolidation. Pleural space: Moderate left pleural effusion layering posteriorly, measuring up to approximately 5 cm. No loculation. Curvilinear subsegmental changes noted involving the left lung. There is pleural thickening laterally at the level of the major fissure which extends vertically, measuring up to 1 cm in thickness. No pneumothorax. Heart: Cardiomegaly. Reflux of contrast into the intrahepatic IVC and proximal hepatic veins is noted. Trace pericardial effusion. Bones/joints: No acute osseous abnormality. Prominent chronic anterior wedging from T5-T9 levels, resulting in accentuated kyphosis. Soft tissues: Unremarkable. Lymph nodes: Unremarkable. No enlarged lymph nodes. Tubes, lines and devices: Left subclavian approach single lead defibrillator noted in the region of the right ventricle with the tip external to the right ventricle approximately 1 cm. IMPRESSION: 1. Accounting for extensive respiratory artifact, there is no definite evidence for pulmonary embolism. The majority of the distal subsegmental pulmonary artery branches are of nondiagnostic quality. 2. Cardiomegaly. Reflux of contrast into the intrahepatic IVC and proximal hepatic veins is noted. This is a nonspecific finding and may be related to rate of contrast administration. However, this finding is also seen with right heart dysfunction. 3. Moderate left pleural effusion layering posteriorly, measuring up to approximately 5 cm. No loculation. 4. Subsegmental changes, most notable involving the left lung. No lobar consolidation. No pneumothorax. Electronically signed by: Yovany Blanc MD 08/01/23 01:30 AM Chest X-Ray 08/01/23 11:44 XR chest 1V portable CLINICAL HISTORY: SOB, worsening hypoxia TECHNIQUE: Single frontal radiograph of the chest was obtained. Comparison: Comparison is made to chest radiograph 07/31/2023 FINDINGS: Pacemaker defibrillator is seen. Cardiomegaly is noted. There is a left retrocardiac opacity. No evidence of pleural effusion or pneumothorax. IMPRESSION: Left retrocardiac opacity, which may represent atelectasis, pneumonia, and/or aspiration. Stable cardiomegaly. ACT 112: Negative or not required by law. Electronically signed by: Jerry Salinas M.D. 08/01/2023 1:[address] 08/02/23 10:48 CT chest diagnostic wo con CLINICAL HISTORY: LEFT sided effusion - bloody TECHNIQUE: Multidetector row helical CT of the chest was performed. Coronal and sagittal reformations were obtained. Automated dose lowering techniques and/or adjustment according to patient size were utilized for this exam. CT DOSE: 306.27 mGy.cm Comparison: Comparison is made to CTA chest 07/31/2023 FINDINGS: Lungs and pleura: Small left pleural effusion is seen, measuring greater than simple fluid density, with underlying atelectasis. Heart and pericardium: Cardiomegaly is seen with biatrial enlargement. Aortic valvular calcifications are seen. Vessels: Moderate atherosclerotic changes in the aorta and coronary arteries. Mediastinum and med: Unremarkable. Chest wall and lower neck: Unremarkable. Abdomen: Unremarkable. Bones: Multilevel compression deformities are seen. Degenerative changes are noted in the spine. No evidence of acute fractures. IMPRESSION: Hyperdense left pleural effusion is seen compatible with previously reported hemorrhagic effusion. Otherwise no acute abnormalities are seen. ACT 112: Negative or not required by law. Electronically signed by: Jerry Salinas M.D. 08/02/2023 11:49 AM Chest X-Ray 08/03/23 14:56 TWO VIEW CHEST CLINICAL HISTORY: Pneumonia. FINDINGS: AP and lateral portable chest radiographs are compared to study dated 08/01/2023 and correlated with chest CT dated 08/02/2023. A single lead cardiac AICD is unchanged in position and partially obscures the left lower chest. The heart is enlarged noting atherosclerotic calcification of the thoracic aorta. The pulmonary vasculature is noncongested. There is a layering left pleural effusion with left basilar consolidation. Trace pleural fluid seen on the right. There is no pneumothorax. The skeletal structures are osteopenic. Compression deformities are noted in the thoracic spine. There is degenerative change hyperkyphosis of the thoracic spine. Arthritic change is seen in the shoulders. IMPRESSION: 1. Cardiomegaly and AICD without radiographic evidence of congestive failure. 2. Layering left pleural effusion with left basilar consolidation. This is similar in appearance to yesterday. 3. Trace pleural fluid is seen on the right. ACT 112: Negative or not required by law. Electronically signed by: Franklin Solo M.D. 08/03/2023 6:30 PM Chest X-Ray 08/05/23 09:59 XR chest 1V portable HISTORY: Follow-up left pleural effusion COMPARISON: Chest 08/03/2023. FINDINGS: Small to moderate left pleural effusion and left basilar densities have slightly improved. The heart remains mildly enlarged. There is a left-sided pacemaker/defibrillator again noted. Slightly rotated study. No pneumothorax. No new focal lung consolidations. No evidence for pulmonary edema. IMPRESSION: Slight improvement in the small to moderate left pleural effusion and left basilar densities. ACT 112: Negative or not required by law. Electronically signed by: Doron Hernandez M.D. 08/05/2023 10:34 AM Pending Results Patient Have Any Pending Studies at Discharge: No Discharge Instructions Given to Patient (Per Discharging Provider) Ms. Feliciano, You were admitted with some trouble breathing. You were seen by the [facility] and they took off some fluid from your lungs. That seemed to help you and your breathing got better. We are also treating you with antibiotics and are discharging you with 4 more days of that for a total of 10 days. We determined that you did not need oxygen for use at home. The [facility] is recommending a follow up CT scan of your chest in 4 weeks. Your primary care provider and [facility] will help you with that. We increased the dose of your metoprolol succinate to 25mg daily, up from 12.5mg. The ultrasound manager also recommended that you discontinue your use of the medication colchicine. Discharged you with lidocaine patches as well for your rib pain. Please keep close follow up with your primary care provider, ultrasound manager and [facility] after discharge. It was a pleasure taking care of you while you were here! Total Time Total Time Spent Total Time Spent (In Minutes): > 30 minutes
== END 2023-08-06 14:25 | disposition home or self-care (01) | DRG 291 ==
LOC: ED 19:31 → SUATTDRO 08-01 04:37 → EDINP 08-01 04:37 → 2S 08-01 05:39

== ENCOUNTER 2024-05-05 21:50 | Inpatient (IN) ==
--- OUTSIDE RECORDS SUMMARY | 2024-05-05 21:58 | External Medical Summary | Summary of Care ---
Author Name Unknown Organization [facility] Address [address] [place] [address] Phone [phone] Care Team Providers Care Network Lead Name Role Phone Isrrael Bolivar Primary Care Provider [phone] Reason for Visit * Reason Onset Date Comments Appointment 04/30/2024 Encounter Details Date Type Department Care Team ([facility] Contact Info) Description 04/30/2024 Telephone General Surgery Raad Coulter [address] [place] [phone] Kaden Lu MD [address] [place] [address] Appointment Allergies No known active allergiesdocumented as of this encounter (statuses as of 04/30/2024) Medications Medication Sig Dispensed Refills Start Date End Date Status NITROGLYCERIN 0.4 MG SL SUBLIndications:Hypo potassemia,Cardiac arrest (HCC),INTERFACED RESULT,Respiratory failure, acute (HCC),Ventricular fibrillation (HCC),Acute non Q wave myocardial infarction (HCC),Dyslipidemia, goal LDL below 100,HTN, goal below 130/80,DM type 2, not at goal (HCC),Asthma, mild persistent,Electroly te and fluid disorder 1 Tab Sublingual Every 5 minutes as needed for chest pain 30 Tab 3 12/08/2010 Active atorvaSTATin (LIPITOR) 40 MG Tablet Take 1 Tablet by mouth every evening. Active ipratropium-albutero l (COMBIVENT RESPIMAT) 20-100 MCG/ACT Inhaler Inhale 1 Puff by mouth 4 times a day. 1 Inhaler 07/22/2018 Active Silver sulfADIAZINE 1 % External Cream Apply topically to affected area daily . Apply to BLE Active Jardiance 25 MG Oral Tablet Take 1 Tablet by mouth in the morning. 03/05/2022 Active Docusate Sodium 100 MG Oral Capsule (Colace) Take 1 Capsule by mouth 2 times a day as needed for Constipation. 10 Capsule 03/31/2022 Active Fluticasone Furoate-Vilanterol 200-25 MCG/ACT Inhalation Aerosol Powder Breath Activated Inhale 1 Puff by mouth in the morning. 60 Blister Dosing Unit 03/31/2022 Active TRUEplus Lancets 33G 07/02/2022 Acti ve True Metrix Blood Glucose Test In Vitro Strip 08/30/2022 Active True Metrix Meter w/Device Kit 07/12/2022 Active Alendronate Sodium 70 MG Oral Tablet (Fosamax) Take 1 Tablet by mouth once a week. 08/14/2022 Active Apixaban 5 MG Oral Tablet (Eliquis)Indications :Persistent atrial fibrillation (HCC) TAKE 1 TABLET BY MOUTH 2 times daily 180 Tablet 3 08/15/2023 Active Triamcinolone Acetonide 0.1 % External Cream (Aristocort) Apply to lower legs twice daily as needed for dry skin 80 g 2 08/22/2023 Active Aspirin 81 MG Oral Tablet Chewable Take 1 Tablet by mouth in the morning. 09/05/2023 Active Colchicine 0.6 MG Oral Tablet Take 1 Tablet by mouth in the morning. 09/05/2023 Active Omeprazole 20 MG Oral Capsule Delayed Release (PriLOSEC) Take 1 Capsule by mouth in the morning. 09/05/2023 Active Metoprolol Succinate ER 25 MG Oral Tablet Extended Release 24 Hour (Toprol XL) Take 1 Tablet by mouth in the morning. 09/05/2023 Active Torsemide 20 MG Oral Tablet (Demadex)Indications :HTN, goal below 140/90,Dyslipidemia, goal LDL below 70,Permanent atrial fibrillation (HCC),Chronic diastolic congestive heart failure (HCC),ICD (implantable cardioverter-defibri llator), single, in situ Take 2 Tablets by mouth in the morning and 2 Tablets in the evening. 60 Tablet 11/12/2023 Active Additional Information Patient taking differently: 20 mgOral BID (0700,1900), Reported on 02/16/2024 Ondansetron 4 MG Oral Tablet Disintegrating (Zofran) Place 1 Tablet on tongue every 6 hours as needed for Nausea. 20 Tablet 12/26/2023 Active traMADol HCl 25 MG Oral Tablet Take 25 mg by mouth every 6 hours as needed for Pain, Mild. 10 Tablet 12/26/2023 Active Senna-Docusate Sodium 8.6-50 MG Oral Tablet Take 1 Tablet by mouth in the morning. 30 Tablet 1 12/26/2023 Active Polyethylene Glycol 3350 17 GM Oral Packet (Miralax) Take 1 Packet by mouth 2 times a day as needed (constipation). 14 Each 12/26/2023 Active Pregabalin 100 MG Oral Capsule (Lyrica) Take 1 Capsule by mouth in the morning and 1 Capsule before bedtime. 60 Capsule 1 12/26/2023 Active Ipratropium-Albutero l 0.5-2.5 (3) MG/3ML Inhalation Solution (Duoneb) Inhale 3 mL via nebulizer in the morning and 3 mL before bedtime. 02/02/2024 Active Potassium Chloride Ghislaine ER 10 MEQ Oral Tablet Extended ReleaseIndications:H ypokalemia Take 3 Tablets by mouth in the morning and 3 Tablets before bedtime. 6 Tablet 02/17/2024 Active Additional Information Patient not taking.Reported on 02/20/2024 documented as of this encounter (statuses as of 04/30/2024) Active Problems Problem Noted Date Diagnosed Date Fall at home 12/19/2023 Leg edema 11/10/2023 PAD (peripheral artery disease) 11/10/2023 Elevated transaminase level 11/10/2023 Coronary artery disease invo lving [place] coronary artery of [place] heart without angina pectoris 11/10/2023 Abnormal nuclear stress test 11/10/2023 Critical limb ischemia of le ft lower [...] inactive term Asthma, mild persistent 11/24/2010 Hyperlipidemia Uncontrolled hypertension Takotsubo cardiomyopathy documented as of this encounter (statuses as of 04/30/2024) Resolved Problems Problem Noted Date Diagnosed Date Resolved Date Closed fracture of right femur 12/19/2023 12/26/2023 Closed fracture of right hip 12/19/2023 12/26/2023 Cardiac/pericardial tamponade 11/02/2022 11/05/2022 Hypoxemia 11/24/2018 11/27/2018 Cardiac arrest 11/24/2010 07/14/2011 Ventricular fibrillation 11/24/2010 Acute non Q wave myocardial infarction 11/24/2010 07/14/2011 HTN, goal below 130/80 11/24/201005/11 Overview: Per HTN Protocol #27. documented as of this encounter (statuses as of 04/30/2024) Immunizations Name Administration Dates Next Due Pneumococcal Polysaccharide PPV23 (Pneumovax) documented as of this encounter Social History Tobacco Use Types Packs/Day Years Used Date Smoking Tobacco: Never Smokeless Tobacco: Never Alcohol Use Standard Drinks/Week Comments No 0 (1 standard drink = 0.6 oz pur e alcohol) Personal Safety Answer Date Recorded Do you feel unsafe or have concerns for your saf ety? No 12/19/2023 Do you have concerns for you r family's safety? (Household - for ages 0-17 years) Not on file 12/19/2023 Utilities Answer Date Recorded Do you have trouble paying y our heating, water, or electric bill? (Adult - for ages 18 years and over) Not on file 03/06/2024 Is your family able to pay t he heat, water, or electric bill? (Household - for ages 0-17 years) Not on file 03/06/2024 Does your family have access to good internet? (Household - for ages 0-17 years) Not on file 03/06/2024 Social Connections Answer Date Recorded How often do you feel lonely or isolated from those around you? (Adult - for ages 18 years and over) Not on file 03/06/2024 Transportation Needs Answer Date Record ed READ ONLY Do you have troubl e getting a ride to medical visits or work? Never True 12/19/2023 Does your family have a hard time getting a ride to doctors visits? (Household - for ages 0-17 years) Not on file 12/19/2023 Has lack of transportation k ept you from medical appointments, meetings, work, or from getting things needed for daily living? Check all that apply. (Adult - for ages 18 years and over) Not on file 12/19/2023 Do you (or your family) have trouble finding or paying for a ride (transportation)? (Household - for ages 0-17 years) Not on file 12/19/2023 Housing Stability Answer Date Recorded Do you currently live in a s helter or have no steady place to sleep at night? (Adult - for ages 18 years and over) Not on file 12/19/2023 READ ONLY Do you think you a re at risk of becoming homeless? No 12/19/2023 Does your family worry about paying for your home or becoming homeless? (Household - for ages 0-17 years) Not on file 0 12/19/2023 Are you homeless or worried that you might be in the future? (Adult - for ages 18 years and over) Not on file Are you (or your family) lizzette eless or worried that you might be in the future? (Household - for ages 0-17 years) Not on file Food Insecurity Answer Date Recorded Do you need food for this week? No 12/19/2023 Are you able to get enough f ood for your family? (Household - for ages 0-17 years) Not on file 12/19/2023 Does your family need food t his week? (Household - for ages 0-17 years) Not on file 12/19/2023 Do you always have enough fo od for your family? (Household - for ages 0-17 years) Not on file 12/19/2023 Sex and Gender Information Value Date Recorded Sex Assigned at Not on file Gender Identity Not on file Sexual Orientation Not on file Job Start Date Occupation Industry Not on file Not on file Not on file documented as of this encounter Functional Status Functional Status Response Date of Assess ment Are you deaf or do you have serious difficulty h earing? No 12/19/2023 Are you blind or do you have serious difficulty seeing, even when wearing glasses? No 12/19/2023 Do you have serious difficul ty walking or climbing stairs? (5 years old or older) No 12/19/2023 Do you have difficulty dress ing or bathing? (5 years old or older) No 12/19/2023 Because of a physical, menta l, or emotional condition, do you have difficulty doing errands alone such as visiting a doctor s office or shopping? (15 years old or older) No 12/19/19 Cognitive Status Response Date of Assessm ent Because of a physical, menta l, or emotional condition, do you have serious difficulty concentrating, remembering, or making decisions? (5 years old or older) No 12/19/2023 documented as of this encounter Miscellaneous Notes * Telephone Encounter - Vickie Childs OSA - 04/30/2024 4:03 PM EDT Appointment is scheduled with Lavern at Dr. Bolivar's office. She will notify the patient of appointment time and that our office is out of network with [facility]. * Telephone Encounter - Fatou Jensen RN - 04/30/2024 3:43 PM EDT Yes, please schedule next available appointment with Dr. Lu. * Telephone Encounter - Vickie Childs OSA - 04/30/2024 3:17 PM EDT Is this ok to schedule with Dr. Lu? * Telephone Encounter - Casi Herr OSA - 04/30/2024 3:[address] Bolivar's office is calling to get pt scheduled for Open wound on buttocks and right upper leg. You can reach Lavern back at [phone] documented in this encounter Plan of Treatment Upcoming Encounters Date Type Department Care Team (Late st Contact Info) Description 05/07/2024 10:00 AM EDT Office Visit Wound Care, [facility] [address] [facility] [place] [address] Kaden Lu MD [address] [place] [address] 06/18/2024 9:30 AM EDT [facility] [place] [facility] [address] Nel Rajan PA-C [address] [place] [address] 04/04/2025 9:00 AM EDT Cardiac Studies Cardiology, [place] [address] [place] [place] [address] [facility] [address] Health Maintenance Due Date Last Done Comments Depression Screening 1947 Diabetic Foot Exam 1953 DTaP,Tdap,and Td Vaccines (1 - Tdap) 01/22/1956 Zoster Vaccines (1 of 2) 1987 Albumin/Creatinine Ratio 12/03/2015 12/02/2014 *SPIROMETRY ONCE FOR ASTHMA-ADULT 11/07/2016 COVID-19 Vaccine (2022- season) 2023 Diabetic Eye Exam 09/07/2023 09/07/2022, , 09/07/2022, Additional history exists HbA1c 05/10/2024 11/10/2023, 10/20, 10/12/2022, Additional history exists Influenza Vaccine (FLU shot) (#1) 2024 DXA Scan 05/31/2029 05/31/2022, 05/22/2019 Pneumococcal Vaccine: 65+ Years Completed 06/11/2016, 11/16/2013, 12/03/2010, Additional history exists HPV (Gardasil) Vaccine Aged Out No lo nger eligible based on patient's age to complete this topic Hepatitis B Vaccine Aged Out No longe r eligible based on patient's age to complete this topic MENINGOCOCCAL (MENACTRA/MENVEO) Aged Out No longer eligible based on patient's age to complete this topic documented as of this encounter Medical Devices Implanted Type Area Electroencephalographic Technician Device Identifier Shelf Expiration Date Model / Serial / Lot Lens 21.0 [facility] - [id number] - [id number] Implanted:Qty: 1 on 01/28/2023 by Christian Woo DO at OR [facility] Lens Right: Eye [employer] 10/12/2025 CNA0T0.210 / [id number] / [place] 6.5mm Partially Threaded (20mm) Screws, Non-Sterile 90mm Implanted:Qty: 2 on 12/21/2023 by Sulaiman Morales MD at OR [facility] Screw Right: Hip DENISE : ORTHOPAEDICS N/A [id number] / N/A / N/A Description:From sterile set on field. No LOT #, Expiration date or serial # present. WD# [id number] per CD Team Denise 6.5mm Partially Threaded (20mm) Screws, Non-Sterile 95mm Implanted:Qty: 1 on 12/21/2023 by Sulaiman Morales MD at OR [facility] Screw Right: Hip DENISE N/A [id number] / N/A / N/A Description:From sterile set on field. No LOT #, Expiration date or serial # present. WD# [id number] per CDM Team Lens 20.5 [employer] - [id number] - [id number] Implanted:Qty: 1 on 01/04/2023 by Christian Woo DO at OR [facility] Left: Eye [employer] 07/15/2025 CNA0T0.205 / [id number] / documented as of this encounter Advance Directives * Full Code (Latest Code Status on File) Date Activated Date Inactivated Comments 12/21/2023 10:03 AM 12/26/2023 4:34 PM This order re flects the patients wishes and were consensually agreed upon. Question Answer Comments Discussion of Advance Direct torri occurred with: Not Discussed due to patient's condition * Full Code Date Activated Date Inactivated Comments 12/19/2023 1:54 PM 12/21/2023 10:03 AM This order re flects the patients wishes and were consensually agreed upon. Question Answer Comments Discussion of Advance Directives occurred with: Patient * Full Code Date Activated Date Inactivated Comments 11/10/2023 3:07 AM 11/12/2023 5:00 PM This order r eflects the patients wishes and were consensually agreed upon. Question Answer Comments Discussion of Advance Directives occurred with: Patient Does the patient have a Living Will? Yes, not cu rrently available Does the patient have Health Care Power of Contract Preparer? Yes, not currently available * Full Code Date Activated Date Inactivated Comments 01/28/2023 8:51 AM 01/28/2023 4:34 PM Question Answer Comments Discussion of Advance Direct torri occurred with: Not Discussed due to patient's condition * Full Code Date Activated Date Inactivated Comments 12/24/2022 1:55 AM 12/24/2022 8:25 PM This order ref lects the patients wishes and were consensually agreed upon. Question Answer Comments Discussion of Advance Direct torri occurred with: Not Discussed due to patient's condition Care Teams Network Lead Relationship Specialty Start Date End Date Isrrael Bolivar DO [address] [place] [id number] PCP - General Family Medicine 11/24/10 documented as of this encounter
--- OUTSIDE RECORDS SUMMARY | 2024-05-05 21:58 | External Medical Summary | Summary of Care ---
Author Name Unknown Organization [facility] [address] [place] [address] Phone [phone] Care Team Providers Care Copy Technician Name Role Phone Isrrael Bolivar Primary Care Provider [phone] Encounter Details Date Type Department Care Team (Latest Contact Info) Description 04/24/2024 9:39 AM EDT - 04/24/2024 11:59 PM EDT Hospital Encounter Vascular Lab, [facility] [address] [place], [place] [phone] Arrived Discharge Disposition: Home - Self Care Allergies No known active allergiesdocumented as of this encounter (statuses as of 04/25/2024) Medications Medication Sig Dispensed Refills Start Date [...] Additional Information Patient not taking.Reported on 02/20/2024 Doxycycline Hyclate 100 MG Oral Capsule Take 1 Capsule by mouth in the morning and 1 Capsule before bedtime. Do all this for 10 days. 20 Capsule 04/19/2024 4 Active Cephalexin 500 MG Oral Capsule Take 1 Capsule by mouth in the morning and 1 Capsule at noon and 1 Capsule in the evening and 1 Capsule before bedtime. Do all this for 7 days. 28 Capsule 04/19/2024 4 Active documented as of this encounter (statuses as of 04/25/2024) Active Problems Problem Noted Date Diagnosed Date Fall at home 12/19/2023 Leg edema 11/10/2023 PAD (peripheral artery disease) 11/10/2023 Elevated transaminase level 11/10/2023 Coronary artery disease invo lving [place] coronary artery of [place] heart without angina pectoris 11/10/2023 Abnormal nuclear [...] as of this encounter (statuses as of 04/25/2024) Resolved Problems Problem Noted Date Diagnosed Date Resolved Date Closed fracture of right femur 12/19/2023 12/26/2023 Closed fracture of right hip 12/19/2023 12/26/2023 Cardiac/pericardial tamponade 11/02/2022 11/05/2022 Hypoxemia 11/24/2018 11/27/2018 Cardiac arrest 11/24/2010 07/14/2011 Ventricular fibrillation 11/24/2010 Acute non Q wave myocardial infarction 11/24/2010 07/14/2011 HTN, goal below 130/80 11/24/201005/11 Overview: Per HTN Protocol #27. documented as of this encounter (statuses as of 04/25/2024) Immunizations Name Administration Dates Next Due Pneumococcal [...] No 12/19/2023 documented as of this encounter Plan of Treatment Upcoming Encounters Date Type Department Care Team (Late st Contact Info) Description 06/18/2024 9:30 AM EDT Office Visit [facility] [address] [place] [address] Nel Rajan PA-C [address] [place] [address] 04/04/2025 9:00 AM EDT Cardiac Studies Raad Scott [address] [place] [address] [facility] [address] [facility] [place] [address] Health Maintenance Due Date Last Done Comments Depression Screening 1947 Diabetic Foot Exam 1955 DTaP,Tdap,and Td Vaccines (1 - Tdap) 01/22/1954 Zoster Vaccines (1 of 2) 1987 Albumin/Creatinine Ratio 12/03/2015 12/02/2014 *SPIROMETRY ONCE FOR ASTHMA-ADULT 11/07/2016 COVID-19 Vaccine (1 - 2022- season) 2023 Diabetic Eye Exam 09/07/2023 09/07/2022, [...] this encounter Medical Devices Implanted Type Area Metal Bed Assembler Device Identifier Shelf Expiration Date Model / Serial / Lot Lens 21.0 Rhonda - [id number] - [id number] Implanted:Qty: 1 on 01/28/2023 by Christian Woo DO at OR [facility] Lens Right: Eye [employer] 10/12/2025 CNA0T0.210 / [id number] / [place] 6.5mm Partially Threaded (20mm) Screws, Non-Sterile 90mm Implanted:Qty: 2 on 12/21/2023 by Sulaiman Morales MD at OR [facility] Screw Right: Hip DENISE : ORTHOPAEDICS N/A [id number] / N/A / N/A Description:From sterile set on field. No LOT #, Expiration date or serial # present. WD# [id number] per CDM Team Denise 6.5mm Partially Threaded (20mm) Screws, Non-Sterile 95mm Implanted:Qty: 1 on 12/21/2023 by Sulaiman Morales MD at OR [facility] Screw Right: Hip DENISE N/A [id number] / N/A / N/A Description:From sterile set on field. No LOT #, Expiration date or serial # present. WD# [id number] per CDM Team Lens 20.5 [place] - [id number] - [id number] Implanted:Qty: 1 on 01/04/2023 by Christian Woo DO at OR [facility] Left: Eye [employer] 07/15/2025 CNA0T0.205 / [id number] / documented as of this encounter Procedures Procedure Name Priority Date/Time Associated Diagnosis Comments VASC DUPLEX VENOUS LE UNILAT Routine 04/24/2024 10:55 AM EDT documented in this encounter Results * VASC DUPLEX VENOUS LE UNILAT (04/24/2024 10:55 AM EDT) Anatomical Region Laterality Modality Lower Extremity, Vascular Ultras ound Impressions 04/24/2024 1:07 PM EDT : Left lower extremity with no evidence of acute deep venous thrombosis. Some exam limitations due to edema. Narrative 04/24/2024 1:07 PM EDT VASCULAR LAB RESULTS DATE OF EXAM: 04/24/24 PRESENTING CONDITIONS: Pain in left leg Immediately before proceeding with the vascular lab procedure reported below, the identity of the patient, the correct exam and the correct procedural site were verified. PHYSICIAN REPORT: Lower Extremity Venous Duplex Examination Color flow Doppler, spectral analysis, and transducer compression techniques were applied during this ultrasound image examination. LEFT LOWER EXTREMITY On duplex examination, the left common femoral vein, the sapheno-femoral junction, the femoral vein in the thigh, and popliteal vein are all free of internal echoes and demonstrate normal transducer compressibility during fox scale imaging and normal respiratory and augmentation response during Doppler interrogation. The posterior tibial veins and peroneal veins demonstrate no evidence of thrombosis and visualized aspects. The contralateral common femoral vein is patent and free of internal echoes. Chang Alexander DO RAD VASCULAR documented in this encounter Advance Directives * Full Code [...] the patient have Health Care Power of [place]? Yes, not currently available * Full Code [...] Discussed due to patient's condition Care Teams Copy Technician Relationship Specialty Start Date End Date Isrrael Bolivar DO [address] [place], [place] [address] [address] PCP - General Family Medicine 11/24/10 documented as of this encounter
--- OUTSIDE RECORDS SUMMARY | 2024-05-05 21:58 | External Medical Summary | Summary of Care ---
Author Name Unknown Organization [facility] Address [address] [place] [address] Phone [phone] Care Team Providers Care Electrical Appliance Preparer Name Role Phone Isrrael Bolivar Primary Care Provider [phone] Reason for Visit * Reason Onset Date Comments Appointment 04/30/2024 Encounter Details Date Type Department Care Team ([facility] Contact Info) Description 04/30/2024 Telephone General Surgery Raad Coulter [address] [place] [phone] Kaden Lu MD [address] [place] [address] Appointment Allergies No known active allergiesdocumented as [...] level 11/10/2023 Coronary artery disease invo lving [place] coronary artery of [place] heart without angina pectoris 11/10/2023 Abnormal nuclear [...] leg. You can reach Lavern back at [phone] documented in this encounter Plan of Treatment Upcoming Encounters Date Type Department Care Team (Late st Contact Info) Description 06/18/2024 9:30 AM EDT Office Visit Cardiology, [address] [place] [address] Nel Rajan PA-C [address] [place] [address] 04/04/2025 9:00 AM EDT Cardiac Studies Cardiology, [place] [address] [place] [address] [facility] [address] [place] [address] Health Maintenance Due Date Last Done Comments Depression Screening 1947 Diabetic Foot Exam 1955 DTaP,Tdap,and Td Vaccines (1 - Tdap) 01/22/1954 Zoster Vaccines (1 of 2) 1987 Albumin/Creatinine Ratio 12/03/2015 12/02/2014 *SPIROMETRY ONCE FOR ASTHMA-ADULT 11/07/2016 COVID-19 Vaccine ( - 2022- season) 2023 Diabetic Eye Exam [...] this encounter Medical Devices Implanted Type Area Transport Medic Device Identifier Shelf Expiration Date Model / Serial / Lot Lens 21.0 [place] - [id number] - [id number] Implanted:Qty: 1 on 01/28/2023 by Christian Woo DO at OR [facility] Lens Right: Eye [employer] 10/12/2025 CNA0T0.210 / [id number] / [place] 6.5mm Partially Threaded (20mm) Screws, Non-Sterile 90mm Implanted:Qty: 2 on 12/21/2023 by Sulaiman Morales MD at OR [facility] Screw Right: Hip DENISE : ORTHOPAEDICS N/A [id number] / N/A / N/A Description:From sterile set on field. No LOT #, Expiration date or serial # present. WD# [id number] per CDM Team Denise 6.5mm Partially Threaded (20mm) Screws, Non-Sterile 95mm Implanted:Qty: 1 on 12/21/2023 by Sulaiman Morales MD at OR [facility] Screw Right: Hip DENISE N/A [id number] / N/A / N/A Description:From sterile set on field. No LOT #, Expiration date or serial # present. # [id number] per CDM Team Lens 20.5 [place] - [id number] - [id number] Implanted:Qty: 1 on 01/04/2023 by Christian Woo DO at OR [facility] Left: Eye [employer] 07/15/2025 CNA0T0.205 / [id number] 135 / documented as of this encounter [...] the patient have Health Care Power of Row Boss? Yes, not currently available * Full Code [...] Discussed due to patient's condition Care Teams Electrical Appliance Preparer Relationship Specialty Start Date End Date Isrrael Bolivar DO [address] [place] [address] PCP - General Family Medicine 11/24/10 documented as of this encounter
--- OUTSIDE RECORDS SUMMARY | 2024-05-05 21:58 | External Medical Summary | Summary of Care ---
Author Name Unknown Organization [facility] Address [address] [place] [address] Phone [phone] Care Team Providers Care Electronic Repair Troubleshooter Name Role Phone Isrrael Bolivar Primary Care Provider [phone] Reason for Visit * Reason Onset Date Comments Appointment 04/30/2024 Encounter Details Date Type Department Care Team ([facility] Contact Info) Description 04/30/2024 Telephone General Surgery Raad Coulter [address] [phone] Kaden Lu MD [address] [address] Appointment Allergies No known active allergiesdocumented as [...] level 11/10/2023 Coronary artery disease invo lving [place] coronary artery of [place] heart without angina pectoris 11/10/2023 Abnormal nuclear [...] encounter Miscellaneous Notes * Telephone Encounter - Fatou Jensen RN [...] right upper leg. You can reach Lavern jones at [phone] documented in this encounter Plan of Treatment Upcoming Encounters Date Type Department Care Team (Late st Contact Info) Description 06/18/2024 9:30 AM EDT Office Visit Cardiology, [place] [address] [place] [address] Nel Rajan PA-C [address] [place] [address] 04/04/2025 9:00 AM EDT Cardiac Studies Cardiology, [place] [address] [place] [address] Ra[facility], [facility] [address] [place] [address] Health Maintenance Due Date Last Done Comments Depression Screening 1947 Diabetic Foot Exam 1955 DTaP,Tdap,and Td Vaccines (1 - Tdap) 01/22/1956 Zoster Vaccines (1 of 2) 1987 Albumin/Creatinine Ratio 12/03/2015 12/02/2014 *SPIROMETRY ONCE FOR ASTHMA-ADULT 11/07/2016 COVID-19 Vaccine ( - season) 2023 Diabetic Eye Exam 09/07/2023 09/07/2022, [...] this encounter Medical Devices Implanted Type Area Director Of Clinical Services Device Identifier Shelf Expiration Date Model / Serial / Lot Lens 21.0 Jerome - [id number] - [id number] Implanted:Qty: 1 on 01/28/2023 by Christian Woo DO at OR [facility] Lens Right: Eye [employer] 10/12/2025 CNA0T0.210 / [id number] / [place] 6.5mm Partially Threaded (20mm) Screws, Non-Sterile 90mm Implanted:Qty: 2 on 12/21/2023 by Sulaiman Morales MD at OR [facility] Screw Right: Hip DENISE : ORTHOPAEDICS N/A [id number] / N/A / N/A Description:From sterile set on field. No LOT #, Expiration date or serial # present. WD# [id number] per CDM Team [place] 6.5mm Partially Threaded (20mm) Screws, Non-Sterile 95mm Implanted:Qty: 1 on 12/21/2023 by Sulaiman Morales MD at OR [facility] Screw Right: Hip DENISE N/A [id number] / N/A / N/A Description:From sterile set on field. No LOT #, Expiration date or serial # present. WD# [id number] per CDM Team Lens 20.5 Jerome - [id number] - [id number] Implanted:Qty: 1 on 01/04/2023 by Christian Woo DO at OR [facility] Left: Eye [employer] 07/15/2025 CNA0T0.205 / [id number] / documented as of this encounter [...] the patient have Health Care Power of Card Doffer? Yes, not currently available * Full Code [...] Discussed due to patient's condition Care Teams Electronic Repair Troubleshooter Relationship Specialty Start Date End Date Isrrael Bolivar DO [address] [place] [id number] PCP - General Family Medicine 11/24/10 documented as of this encounter
--- OUTSIDE RECORDS SUMMARY | 2024-05-05 21:58 | External Medical Summary | Summary of Care ---
Author Name Unknown Organization [facility] Address [address] [place] [address] Phone [phone] Care Team Providers Care Lay Midwife Name Role Phone Isrrael Bolivar Primary Care Provider [phone] Reason for Visit * Reason Onset Date Comments Appointment 04/30/2024 Encounter Details Date Type Department Care Team ([facility] [address] Contact Info) Description 04/30/2024 Telephone General Surgery Raad Coulter [address] [phone] Kaden Lu MD [address] [address] Appointment Allergies No known active allergiesdocumented as [...] level 11/10/2023 Coronary artery disease invo lving [place] coronary artery of [place] heart without angina pectoris 11/10/2023 Abnormal nuclear [...] leg. You can reach Lavern back at [phone] documented in this encounter Plan of Treatment Upcoming Encounters Date Type Department Care Team (Late st Contact Info) Description 06/18/2024 9:30 AM EDT Office Visit Cardiology, [address] [place] [address] Nel Rajan PA-C [address] [place] [address] 04/04/2025 9:00 AM EDT Cardiac Studies Cardiology, [place] [address] [place] [address] [facility] [address] [place] [address] Health Maintenance Due Date Last Done Comments [...] this encounter Medical Devices Implanted Type Area Mail Processing Clerk Device Identifier Shelf Expiration Date Model / Serial / Lot Lens 21.0 Jerome - [id number] - [id number] Implanted:Qty: 1 on 01/28/2023 by Christian Woo DO at OR [facility] Lens Right: Eye [employer] 10/12/2025 CNA0T0.210 / [id number] / [place] 6.5mm Partially Threaded (20mm) Screws, Non-Sterile 90mm Implanted:Qty: 2 on 12/21/2023 by Sulaiman Morales MD at OR [facility] Screw Right: Hip DENISE : ORTHOPAEDICS N/A [id number] / N/A / N/A Description:From sterile set on field. No LOT #, Expiration date or serial # present. WD# [id number] per CDM Team [place] 6.5mm Partially Threaded (20mm) Screws, Non-Sterile 95mm Implanted:Qty: 1 on 12/21/2023 by Sulaiman Morales MD at OR [facility] Screw Right: Hip DENISE N/A [id number] / N/A / N/A Description:From sterile set on field. No LOT #, Expiration date or serial # present. # [id number] per CDM Team Lens 20.5 [place] - [id number] - [id number] Implanted:Qty: 1 on 01/04/2023 by Christian Woo DO at OR [facility] Left: Eye [employer] 07/15/2025 CNA0T0.205 / [id number] 135 / documented as of this encounter [...] the patient have Health Care Power of Post Anesthesia Nurse? Yes, not currently available * Full Code [...] Discussed due to patient's condition Care Teams Lay Midwife Relationship Specialty Start Date End Date Isrrael Bolivar DO [address] [place] [address] PCP - General Family Medicine 11/24/10 documented as of this encounter
--- OUTSIDE RECORDS SUMMARY | 2024-05-05 21:58 | External Medical Summary | Summary of Care ---
Author Name Unknown Organization [facility] Address [address] [place] [address] Phone [phone] Care Team Providers Care Garbage Stoker Name Role Phone Isrrael Bolivar Primary Care Provider [phone] Reason for Visit * Reason Onset Date Comments Appointment 04/30/2024 Encounter Details Date Type Department Care Team ([facility] Contact Info) Description 04/30/2024 Telephone General Surgery Raad Coulter [address] [phone] Kaden Lu MD [address] [address] Appointment Allergies No known active allergiesdocumented as [...] level 11/10/2023 Coronary artery disease invo lving [place] coronary artery of [place] heart without angina pectoris 11/10/2023 Abnormal nuclear [...] leg. You can reach Lavern jones at [phone] documented in this encounter Plan of Treatment Upcoming Encounters Date Type Department Care Team (Late st Contact Info) Description 06/18/2024 9:30 AM EDT Office Visit Cardiology, [place] [address] [place] [address] Nel Rajan PA-C [address] [address] 04/04/2025 9:00 AM EDT Cardiac Studies Cardiology, [place] [address] [address] Ra[facility], [facility] [address] [place] [address] Health Maintenance Due Date Last Done Comments [...] this encounter Medical Devices Implanted Type Area [place] Miller Device Identifier Shelf Expiration Date Model / Serial / Lot Lens 21.0 Jerome - [id number] - [id number] Implanted:Qty: 1 on 01/28/2023 by Christian Woo DO at OR [facility] Lens Right: Eye [employer] 10/12/2025 CNA0T0.210 / [id number] / [place] 6.5mm Partially Threaded (20mm) Screws, Non-Sterile 90mm Implanted:Qty: 2 on 12/21/2023 by Sulaiman Morales MD at OR [facility] Screw Right: Hip DENISE : ORTHOPAEDICS N/A [id number] / N/A / N/A Description:From sterile set on field. No LOT #, Expiration date or serial # present. WD# [id number] per CDM Team [place] 6.5mm Partially Threaded (20mm) Screws, Non-Sterile 95mm Implanted:Qty: 1 on 12/21/2023 by Sulaiman Morales MD at OR [facility] Screw Right: Hip DENISE N/A [id number] / N/A / N/A Description:From sterile set on field. No LOT #, Expiration date or serial # present. WD# [id number] per CDM Team Lens 20.5 [place] - [id number] - [id number] Implanted:Qty: 1 on 01/04/2023 by Christian Woo DO at OR [facility] Left: Eye [employer] 07/15/2025 CNA0T0.205 / [id number] 135 / documented as of this encounter [...] the patient have Health Care Power of Maintenance Worker? Yes, not currently available * Full Code [...] Discussed due to patient's condition Care Teams Garbage Stoker Relationship Specialty Start Date End Date Isrrael Bolivar DO [address] [place] [address] PCP - General Family Medicine 11/24/10 documented as of this encounter
--- OUTSIDE RECORDS SUMMARY | 2024-05-05 21:59 | External Medical Summary | Summary of Care ---
Author Name Unknown Organization [facility] Address [address] [place] [address] Phone [phone] Care Team Providers Care Flow Coordinator Name Role Phone Isrrael Bolivar DO Primary Care Provider [phone] Reason for Referral * Evaluate & Treat - Unlimited Visits (Within 3 days (urgent)) - Authorized Specialty Diagnoses / Procedures Referred By Contac t Referred To Contact Physical Therapy / Physical Medicine And Rehab Diagnoses Acute bilateral low back pain with sciatica, sciatica laterality unspecified Chang Alexander DO [address] [place] [address] Referral ID Status Reason Start Date Expiration Date Visits Requested Visits Authorized [id number] Authorized Specialty Services Required 04/19/2024 999 999 Question Answer Referral Priority Within 3 days (urgent) Where should this appointment be scheduled? Gregoryisingosvaldo Comments Discharge Order Reason for Visit * Reason Comments Back Pain Swelling Infection * Auth/Cert Specialty Diagnoses / Procedures Referred By Contac t Referred To Contact [facility] [address] [place] [address] Phone: [phone] Emergency Medicine [facility] [address] [facility] [place] [address] Referral ID Status Reason Start Date Expiration Date Visits Re quested Visits Authorized [id number] Encounter Details Date Type Department Care Team ([facility] Contact Info) Description 04/19/2024 8:01 PM EDT - 04/19/2024 10:05 PM EDT Emergency [facility] Emergency Department ([facility]) [address] [place] [address] Chang Alexander, [address] [place] [address] Cellulitis of lower extremity, unspecified laterality (Primary Dx); Tear of skin of multiple sites of lower extremity, unspecified laterality, initial encounter; Acute bilateral low back pain with sciatica, sciatica laterality unspecified Discharge Disposition: Home - Self Care Allergies No known active allergiesdocumented as of this encounter (statuses as of 04/20/2024) Medications Medication Sig Dispensed Refills Start Date [...] as of this encounter (statuses as of 04/20/2024) Active Problems Problem Noted Date Diagnosed Date Fall at home 12/19/2023 Leg edema 11/10/2023 PAD (peripheral artery disease) 11/10/2023 Elevated transaminase level 11/10/2023 Coronary artery disease invo lving [place] coronary artery of [place] heart without angina pectoris 11/10/2023 Abnormal nuclear [...] 11/24/2018 Acute on chronic diastolic heart failure 03/08/2 019 RLL pneumonia 12/02/2017 Automatic implantable cardioverter-defibrillator in situ 12/15/2010 Acute respiratory failure with hypoxia 1 Type 2 diabetes mellitus wit h hemoglobin A1c goal of less than 7.0% 11/24/2010 Overview: ICD-10 update of inactive term Asthma, mild persistent 11/24/2010 Hyperlipidemia Uncontrolled hypertension Takotsubo cardiomyopathy documented as of this encounter (statuses as of 04/20/2024) Resolved Problems Problem Noted Date Diagnosed Date Resolved Date Closed fracture of right femur 12/19/2023 12/26/2023 Closed fracture of right hip 12/19/2023 12/26/2023 Cardiac/pericardial tamponade 11/02/2022 11/05/2022 Hypoxemia 11/24/2018 11/27/2018 Cardiac arrest 11/24/2010 07/14/2011 Ventricular fibrillation 11/24/2010 Acute non Q wave myocardial infarction 11/24/2010 07/14/2011 HTN, goal below 130/80 11/24/201005/11 Overview: Per HTN Protocol #27. documented as of this encounter (statuses as of 04/20/2024) Immunizations Name Administration Dates Next Due Pneumococcal [...] Sign Reading Time Taken Comments Blood Pressure 177/97 04/19/2024 9:30 PM EDT Pulse 71 04/19/2024 9:30 PM EDT Temperature 36.3 C (97.3 F) 04/19/2024 6:00 PM ED T Respiratory Rate 17 04/19/2024 9:30 PM EDT Oxygen Saturation 99% 04/19/2024 9:30 PM EDT Inhaled Oxygen Concentration - - Weight 60.8 kg (134 lb) 04/19/2024 6:00 PM EDT Height - - Body Mass Index 23 03/26/2024 9:34 AM EDT documented in this encounter Functional [...] No 12/19/2023 documented as of this encounter Discharge Instructions * Discharge Instructions* Chang Alexander, - 04/19/2024 9:50 PM EDT You were evaluated today for multiple complaints. You have been started on new antibiotics for yourassociated skin infection. Compressive dressing can be placed over the area that is draining fluid and elevation of your leg can assist with this as well. An outpatient duplex study has been ordered to evaluate for new DVT in your left leg. Recommend Tylenol for your back discomfort and follow up with the PCP if this discomfort persists. Physical therapy referral has been placed to assist you with your outpatient strength. Please return emergency department if develop any fevers, significant worsening in pain, shortness of breath, or new/concerning symptoms. documented in this encounter ED Notes * Chang Alexander DO - 04/19/2024 9:41 PM EDT HISTORY OF PRESENT ILLNESS Lillian Feliciano is a 89 year old female who presents to the ED for evaluation of Back Pain, Swelling, and Infection. The patient was seen at 04/19/242108. Back Pain Review of Systems Musculoskeletal: Positive for back pain. This is an 89-year-old female with history of atrial fibrillation on Eliquis, type 2 diabetes, takotsubo cardiomyopathy with history of VFib with ICD in place, CAD, DVT, CHF presenting for multiple complaints. Patient reports that over the past week she was noticed redness and discomfort to her bilateral lower extremities. Reportedly accidentally walked into a fan with her right lower leg prior to onset of this and sustained a small skin tear to the site. Since then it has been leaking fluid continuously. Reportedly has been on 2 different antibiotics by her PCP in the past week though they are unsure what she was placed on. Unable to see in our system. Denies any associated fevers, weakness, numbness, nausea, vomiting. Has noticed increased swelling to her left lower leg over the past week as well. Recently had right femur repair and was in wheelchair for a prolonged period of time though recently completed physical therapy and has been able to ambulate with her walker as she does atbaseline. The increased swelling in her lower extremity on the left side is causing some degree of discomfort. Patient was additionally has been experiencing lower back pain for the past week. At times radiates to the bilateral knees. Denies any associated falls or other trauma. No recent heavy lifting. Family related this to deconditioning as she was told this may occur by her orthopedic doctor elmer heing her femur repair. Was recently on steroids reportedly for her lower extremity infection however did not help her symptoms. Lives alone and states that when she sits down or gets on the ground it was difficult to get up due to the discomfort and she has to wait there until she was able to. Does not want any other assistance at home at this time and does not want to be placed elsewhere. Denies any associated fevers, chills, recent spinal instrumentation, focal weakness, numbness, saddle anesthesia, or new urinary/bladder incontinence. Patient was reportedly around her baseline weight. Denies any recent shortness of breath, chest pain, or weakness/lightheadedness. The patient's allergies, past history, and medications were reviewed. PHYSICAL EXAM Initial Vitals (see all): BP 134/69 | Pulse 76 | Resp 20 | Temp 97.3 | O2 97 %Weight 60.78 kg | Height 162.6 cm | BMI 23 kg/m2 Initial Pain Assessment (see all): 10 (severe pain)/10, location: lower back pain ([facility] Adult Scale 0-10) Physical Exam Vitals and nursing note reviewed. Constitutional: General: She is not in acute distress. Appearance: She is well-developed. HENT: Head: Normocephalic and atraumatic. Right Ear: External ear normal. Left Ear: External ear normal. Nose: Nose normal. No rhinorrhea. Mouth/Throat: Mouth: Mucous membranes are moist. Pharynx: Oropharynx is clear. No posterior oropharyngeal erythema. Eyes: Extraocular Movements: Extraocular movements intact. Conjunctiva/sclera: Conjunctivae normal. Pupils: Pupils are equal, round, and reactive to light. Cardiovascular: Rate and Rhythm: Normal rate and regular rhythm. Heart sounds: No murmur heard. Pulmonary: Effort: Pulmonary effort is normal. No respiratory distress. Breath sounds: Normal breath sounds. No stridor. No wheezing, rhonchi or rales. Abdominal: General: There is no distension. Palpations: Abdomen is soft. Tenderness: There is no abdominal tenderness. There is no right CVA tenderness, left CVA tenderness, guarding or rebound. Musculoskeletal: General: Normal range of motion. Cervical back: Normal range of motion and neck supple. No tenderness. Right lower leg: Edema present. Left lower leg: Edema (Wsea-gunzwrf-duwo-right) present. Comments: Neurovascularly intact to bilateral lower extremities Skin: General: Skin is warm and dry. Capillary Refill: Capillary refill takes less than 2 seconds. Findings: Erythema (Bilateral lower extremities jnbbc-knkpdfi-almx-left) present. Comments: Skin tear to right lateral lower leg with associated lymphatic drainage Neurological: General: No focal deficit present. Mental Status: She is alert and oriented to person, place, and time. Sensory: No sensory deficit. Motor: No weakness. PROCEDURES AND TREATMENTS ED Orders | ED Results MEDICAL DECISION MAKING Nursing notes and vital signs were reviewed. ED Course as of 04/19/242150Apr 19, [id number] Patient was evaluated. Afebrile and hemodynamically stable. Presenting with multiple complaints. One week of redness and swelling to both legs worse over the right leg with drainage from the right leg where she was struck by a fan. Appears lymphatic though there is surrounding erythema. Has reportedly been on 2 different antibiotics though can not state which. Also complaining of lower back pain for the past week that radiates down both legs though no red flag symptoms concerning for acutespinal cord compression requiring emergent MRI at this time. Has been able to ambulate with her walker though when she sits down she was difficulty standing due to the discomfort. Additionally has noted increased swelling to her left lower leg compared to previous. Its on Eliquis outpatient. Laboratory studies obtained in triage with elevated BNP however improved from previous and no ongoing other symptoms concerning for acute CHF exacerbation. Creatinine is elevated mildly from baseline thoughhas had gradual decline over the past few months. Additional laboratory studies reassuring with no l eukocytosis, no anemia, normal lactate, and no significant electrolyte abnormalities. X-ray of L-spine with no acute findings. Do not believe that MRIs warranted at this time. Patient does not want any additional help at home however she did just recently complete physical therapy outpatient following a femur repair. The lower back pain has occurred since that time and it was in the presence of having used a wheelchair for a prolonged period of time. Believe she would benefit from continued physical therapy outpatient with referral placed now. We will provide with dual antibiotic coverage forher ongoing cellulitis though will need to follow up with the PCP as we are unsure what she has been on recently. Drainage appears lymphatic from her recent skin tear and advised that compressive dressing and elevation of lower extremities can help with this. [AH] 0 Unable to obtain duplex study at this time. 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 We will order outpatient duplex to be performed tomorrow. Discussed these plans with the patient who was understanding and agreeable. Lives alone though does not want any placement or any other assistance at home at this time. Discussed risks of remaining home alone in her current condition however she understands these and does not want any changes. Advise that she should follow up with the PCP which she plans to. Patient and family understanding and agreeable with plan for discharge. Return precautions provided. [AH] ED Course User Index [AH] Chang Alexander DO Differential Diagnoses Based on my history, physical exam, and evaluation, the differential includes, but is not limited, to the following diagnoses: Cellulitis, lymphadenitis, lymphedema, CHF exacerbation, DVT, herniated disc, sciatica, failure to thrive. Clinical Impressions Cellulitis of lower extremity, unspecified laterality Tear of skin of multiple sites of lower extremity, unspecified laterality, initial encounter Acute bilateral low back pain with sciatica, sciatica laterality unspecified Disposition Discharged. The patient's condition at disposition was: stable. Discharge Medications Disp Refills Start End Doxycycline Hyclate 100 MG Oral Capsule 20 Capsule 0 04/19/2024 04/29/2024 Sig - Route: Take 1 Capsule by mouth in the morning and 1 Capsule before bedtime. Do all this for 10 days. - Oral Class: ePrescribing Renewals Renewal requests to authorizing provider (Chang Alexander DO) <b>prohibited</b> Cephalexin 500 MG Oral Capsule 28 Capsule 0 04/19/2024 04/26/2024 Sig - Route: Take 1 Capsule by mouth in the morning and 1 Capsule at noon and 1 Capsule in the evening and 1 Capsule before bedtime. Do all this for 7 days. - Oral Class: ePrescribing Renewals Renewal requests to authorizing provider (Chang Alexander DO) <b>prohibited</b> Chang Alexander * Yesi Aldridge RN - 04/19/2024 5:59 PM EDT Pt here with bilateral lower leg swelling, redness, drainage. She also is having back pain that is new making it hard for her to change positions and ambulate. Recently had a hip repair in December. Shedenies recent falls. documented in this encounter Plan of Treatment Upcoming Encounters Date Type Department Care Team (Late st Contact Info) Description 06/18/2024 9:30 AM EDT Office Visit Cardiology, [facility] [address] [address] Nel Rajan PA-C [address] [address] 04/04/2025 9:00 AM EDT Cardiac Studies Cardiology, [facility] [address] [place] [address] [facility] [address] [address] Scheduled Orders Name Type Priority Associated Diagnoses Order Schedule URINALYSIS WITH MICROSCOPIC EXAM Lab STAT Perform Now for 1 Occurrences starting 04/19/2024 until 04/19/2024 VASC DUPLEX VENOUS LE UNILAT Medical Imaging Routine Ordered: 024 Scheduled Referrals Name Type Priority Associated Diagnoses Orde r Schedule PHYSICAL THERAPY REFERRAL OP Referral Within 3 days (urgent) Acute bilateral low back pain with sciatica, sciatica laterality unspecified Ordered: 04/19/2024 Health Maintenance Due Date Last Done Comments [...] this encounter Medical Devices Implanted Type Area Underwriting Internship Device Identifier Shelf Expiration Date Model / Serial / Lot Lens 21.0 Socoeon - [id number] - [id number] Implanted:Qty: 1 on 01/28/2023 by Christian Woo DO at OR [facility] Lens Right: Eye [employer] 10/12/2025 [id number] / [id number] / [place] 6.5mm Partially Threaded (20mm) Screws, Non-Sterile 90mm Implanted:Qty: 2 on 12/21/2023 by Sulaiman Morales MD at OR [facility] Screw Right: Hip DENISE : ORTHOPAEDICS N/A [id number] / N/A / N/A Description:From sterile set on field. No LOT #, Expiration date or serial # present. WD# [id number] per CDM Team Denise 6.5mm Partially Threaded (20mm) Screws, Non-Sterile 95mm Implanted:Qty: 1 on 12/21/2023 by Sulaiman Morales MD at OR [facility] Screw Right: Hip DENISE N/A [id number] / N/A / N/A Description:From sterile set on field. No LOT #, Expiration date or serial # present. WD# [id number] per CDM Team Lens 20.5 [place] - [id number] - [id number] Implanted:Qty: 1 on 01/04/2023 by Christian Woo DO at OR [facility] Left: Eye [employer] 07/15/2025 [id number] / [id number] / documented as of this encounter Procedures Procedure Name Priority Date/Time Associated Diagnosis Comments BNP (NT-PROBNP) STAT 04/19/2024 8:44 PM EDT EXTRA GOLD TOP Routine 04/19/2024 7:19 PM EDT EXTRA TUBES Routine 04/19/2024 7:19 PM EDT DIFFERENTIAL, AUTOMATED STAT 04/19/2024 7:19 PM EDT COMPREHENSIVE METABOLIC PANEL STAT 04/19/2024 7:19 PM EDT CBC STAT 04/19/2024 7:19 PM EDT LACTATE Routine 04/19/2024 7:19 PM EDT CBC STAT 04/19/2024 7:19 PM EDT XR L SPINE AP AND LATERAL STAT 04/19/2024 6:20 PM EDT EXTRA GREEN TOP WITH GEL Routine 04/19/2024 6:03 PM EDT EXTRA LIGHT BLUE TOP Routine 04/19/2024 6:03 PM EDT EXTRA TUBES Routine 04/19/2024 6:03 PM EDT documented in this encounter Results * (ABNORMAL) BNP, NT-PRO (04/19/2024 8:44 PM EDT) [facility] BNP, NT-Pro 746(H) <300 pg/mL 04/19/2024 9:18 PM EDT LABORATORY [facility] Blood Venous blood specimen / Unknown Venipuncture / Unknown 04/19/2024 8:44 PM EDT 04/19/2024 8:46 PM EDT Narrative LABORATORY [facility] - 04/19/2024 9:18 PM EDT Exclude Heart Failure: <300 pg/mL Diagnose Heart Failure: Age <50 yr: >450 pg/mL 50-75 yr: >900 pg/mL >75 yr: >1800 pg/mL GFR is 30-59 mL/min: >1200 pg/mL or Age-adjusted values GFR <30 mL/min: do not use, not reliable Prognostic threshold: 1000 pg/mL Chang Orrney DO LAB BLOOD ORDERABLE S Performing Organization Address City/[facility]/ZIP Co de Phone Number LABORATORY [facility] [address], [place] [id number] * EXTRA GOLD TOP (04/19/2024 7:19 PM EDT) Blood Venous blood specimen / Unknown 04/19/2024 7:19 PM EDT 04/19/2024 7:26 PM EDT Chang Downey [facility] LAB BLOOD ORDERABLE S Performing Organization Address [facility]/ZIP Co de Phone Number LABORATORY [facility] [address] [place] [address] * DIFFERENTIAL, AUTOMATED (04/19/2024 7:19 PM EDT) WBC 9.63 4.00 - 10.80 K/uL 04/19/2024 7:49 PM EDT LABORATORY [facility] Neutrophils % 63.8 40.0 - 75.0 % 04/19/2024 7:49 PM EDT LABORATORY [facility] Lymphocytes % 25.8 18.0 - 42.0 % 04/19/2024 7:49 PM EDT LABORATORY [facility] Monocytes % 9.0 1.0 - 11.0 % 04/19/2024 7:49 PM EDT LABORATORY [facility] Eosinophils % 1.0 0.0 - 6.0 % 04/19/2024 7:49 PM EDT LABORATORY GL Basophils % 0.1 0.0 - 2.0 % 04/19/2024 7:49 PM EDT LABORATORY GL Immature Granulocytes % 0.3 0.0 - 2.0 % 04/19/2024 7:49 PM EDT LABORATORY GL Absolute Neutrophils 6.14 1.80 - 7.70 K/uL 04/19/2024 7:49 PM EDT LABORATORY GL Absolute Lymphocytes 2.48 1.00 - 4.80 K/ul 04/19/2024 7:49 PM EDT LABORATORY GL Absolute Monocytes 0.87 0.00 - 1.10 K/uL 04/19/2024 7:49 PM EDT LABORATORY GL Absolute Eosinophils 0.10 0.00 - 0.70 K/uL 04/19/2024 7:49 PM EDT LABORATORY [facility] Absolute Basophils 0.01 0.00 - 0.20 K/uL 04/19/2024 7:49 PM EDT LABORATORY GL Absolute Immature Granulocytes 0.03 0.00 - 0.20 K/uL 04/19/2024 7:49 PM EDT LABORATORY [facility] Blood Venous blood specimen / Unknown Venipuncture / Unknown 04/19/2024 7:19 PM EDT 04/19/2024 7:25 PM EDT [facility] LAB BLOOD ORDERABLE S LABORATORY [facility] [address] [place] [address] * CBC (04/19/2024 7:19 PM EDT) WBC 9.63 4.00 - 10.80 K/uL 04/19/2024 7:41 PM EDT LABORATORY [facility] RBC 5.42 3.85 - 5.15 M/uL 04/19/2024 7:41 PM EDT LABORATORY [facility] HGB 13.5 12.0 - 15.3 g/dL 04/19/2024 7:41 PM EDT LABORATORY [facility] HCT 43.5 36.0 - 45.2 % 04/19/2024 7:41 PM EDT LABORATORY [facility] MCV 80.3 81.5 - 97.5 fL 04/19/2024 7:41 PM EDT LABORATORY [facility] MCH 24.9 27.0 - 34.0 pg 04/19/2024 7:41 PM EDT LABORATORY [facility] MCHC 31.0 32.0 - 36.0 g/dL 04/19/2024 7:41 PM EDT LABORATORY [facility] RDW 20.2 11.5 - 15.5 % 04/19/2024 7:41 PM EDT LABORATORY [facility] PLT 185 140 - 400 K/uL 04/19/2024 7:41 PM EDT LABORATORY [facility] MPV 11.0 6.6 - 11.1 fL 04/19/2024 7:41 PM EDT LABORATORY [facility] nRBCs 0 <=0 /100 WBCs 04/19/2024 7:41 PM EDT LABORATORY [facility] Blood Venous blood specimen / Unknown Venipuncture / Unknown 04/19/2024 7:19 PM EDT 04/19/2024 7:25 PM EDT [facility] LAB BLOOD ORDERABLE S Performing Organization Address City/[facility]/ZIP Co de Phone Number LABORATORY GL [address] [place], [place] [phone] * LACTATE (04/19/2024 7:19 PM EDT) Lactate 1.3 0.4 - 2.0 mmol/L 04/19/2024 7:52 PM EDT LABORATORY [facility] Blood Venous blood specimen / Unknown Venipuncture / Unknown 04/19/2024 7:19 PM EDT 04/19/2024 7:25 PM EDT [facility] LAB BLOOD ORDERABLE S Performing Organization Address [facility]/ZIP Co de Phone Number LABORATORY GL [address] [place] [address] * (ABNORMAL) COMPREHENSIVE METABOLIC PANEL (04/19/2024 7:19 PM EDT) BUN 20 6 - 20 mg/dL 04/19/2024 7:54 PM EDT LABORATORY [facility] Creatinine 1.2(H) 0.5 - 1.0 mg/dL 04/19/2024 7:54 PM EDT LABORATORY [facility] Estimated Glomerular Filtration Rate 45(L) >=60 mL/min 04/19/2024 7:54 PM EDT LABORATORY [facility] Comment:eGFR is calculated b ased on the CKD-EPI 2020 equation. Sodium 141 135 - 146 mmol/L 04/19/2024 7:54 PM EDT LABORATORY [facility] Potassium 4.3 3.5 - 5.1 mmol/L 04/19/2024 7:54 PM EDT LABORATORY [facility] Chloride 102 98 - 107 mmol/L 04/19/2024 7:54 PM EDT LABORATORY [facility] CO2 29 22 - 32 mmol/L 04/19/2024 7:54 PM EDT LABORATORY [facility] Anion Gap 10 7 - 15 mmol/L 04/19/2024 7:54 PM EDT LABORATORY [facility] Glucose 155(H) 70 - 120 mg/dL 04/19/2024 7:54 PM EDT LABORATORY [facility] Albumin 3.6(L) 3.8 - 5.0 g/dL 04/19/2024 7:54 PM EDT LABORATORY [facility] AST 13 10 - 35 U/L 04/19/2024 7:54 PM EDT LABORATORY [facility] Alkaline Phosphatase 113 35 - 130 U/L 04/19/2024 7:54 PM EDT LABORATORY [facility] Bilirubin, Total 0.5 <=1.2 mg/dL 04/19/2024 7:54 PM EDT LABORATORY [facility] Calcium 8.9 8.4 - 10.2 mg/dL 04/19/2024 7:54 PM EDT LABORATORY [facility] Protein 6.3 6.0 - 8.3 g/dL 04/19/2024 7:54 PM EDT LABORATORY [facility] ALT 13 10 - 35 U/L 04/19/2024 7:54 PM EDT LABORATORY [facility] Blood Venous blood specimen / Unknown Venipuncture / Unknown 04/19/2024 7:19 PM EDT 04/19/2024 7:25 PM EDT Chang Leonardo LAB BLOOD ORDERABLE S LABORATORY [facility] [address] [place] [address] * XR L SPINE AP AND LATERAL (04/19/2024 6:20 PM EDT) Anatomical Region Laterality Modality Vertebra, Lspine Digital Radiogr aphy 04/19/2024 6:08 PM EDT Impressions 04/19/2024 6:44 PM EDT IMPRESSION: 1. Moderate to severe diffuse degenerative change of the lumbar spine but no acute fracture or dislocation. This does not exclude central stenosis or disc pathology. THIS DOCUMENT HAS BEEN ELECTRONICALLY SIGNED BY SHAWN KEENAN MD Narrative 04/19/2024 6:44 PM EDT PROCEDURE INFORMATION: Exam: XR Lumbosacral Spine Exam date and time: 04/19/2024 6:08 PM Age: 89 years old Clinical indication: Other: Nki pain lower back; Additional info: Lower back pain TECHNIQUE: Imaging protocol: Radiologic exam of the lumbosacral spine. Views: 2 or 3 views. COMPARISON: DX XR HIP UNILAT 2-3 VIEWS INCLUDING AP PELVIS 03/26/2024 9:42 AM FINDINGS: Bones/joints: No acute fracture or dislocation identified. There is a very subtle levoscoliosis of the thoracolumbar spine junction. There is moderate diffuse degenerative change throughout. Changes consist of loss of disc height endplate sclerosis and spur formation throughout. There is mild wedging of the L2 body of a proximally 20%. There is degenerative change of the facets at the L4-L5 and the L5-S1 level. The patient does have 3 orthopedic screws transfixing the right femoral neck. Soft tissues: No abnormal foreign bodies. Procedure Note Shawn Keenan MD - 04/19/2024 PROCEDURE INFORMATION: Exam: XR Lumbosacral Spine Exam date and time: 04/19/2024 6:08 PM Age: 89 years old Clinical indication: Other: Nki pain lower back; Additional info: Lowerback pain TECHNIQUE: Imaging protocol: Radiologic exam of the lumbosacral spine. Views: 2 or 3 views. COMPARISON: DX XR HIP UNILAT 2-3 VIEWS INCLUDING AP PELVIS 03/26/2024 9:42 AM FINDINGS: Bones/joints: No acute fracture or dislocation identified. There is jatin subtle levoscoliosis of the thoracolumbar spine junction. There is moderate diffuse degenerative change throughout. Changes consistof loss of disc height endplate sclerosis and spur formation throughout. There is mild wedging of the L2 body of a proximally 20%. There is degenerative change of the facets at the L4-L5 and the L5-F2itqyf. The patient does have 3 orthopedic screws transfixing the right femoralneck. Soft tissues: No abnormal foreign bodies. IMPRESSION IMPRESSION: 1. Moderate to severe diffuse degenerative change of the lumbar spine butno acute fracture or dislocation. This does not exclude central stenosis ordisc pathology. THIS DOCUMENT HAS BEEN ELECTRONICALLY SIGNED BY SHAWN KEENAN MD [facility] ([facility]) * EXTRA GREEN TOP WITH GEL (04/19/2024 6:03 PM EDT) Blood Venous blood specimen / Unknown Venipuncture / Unknown 04/19/2024 6:03 PM EDT 04/19/2024 7:25 PM EDT [facility] LAB BLOOD ORDERABLE S Performing Organization Address [facility]/ZIP Co de Phone Number LABORATORY [address] [address] * EXTRA LIGHT BLUE TOP (04/19/2024 6:03 PM EDT) Blood Venous blood specimen / Unknown Venipuncture / Unknown 04/19/2024 6:03 PM EDT 04/19/2024 7:25 PM EDT [facility] LAB BLOOD ORDERABLE S Performing Organization Address City/[facility]/ZIP Co de Phone Number LABORATORY [address] [address] documented in this encounter Visit Diagnoses Diagnosis Cellulitis of lower extremity, unspecified laterality- Primary Tear of skin of multiple sites of lower extremity, unspecified laterality, initial encounter Acute bilateral low back pain with sciatica, sciatica laterality unspecified documented in this encounter Administered Medications Inactive Administered Medications - up to 3 most recent administrations Medication Order MAR Action Action Date Dose Rate Site Cephalexin (Keflex) cap 500 mg 500 mg, Oral, ONCE, On Silva 04/19/24 at 2215, For 1 dose Given 04/19/2024 9:50 PM EDT 500 mg doxycycline tab 100 mg 100 mg, Oral, ONCE, On Silva 04/19/24 at 2215, For 1 dose Given 04/19/2024 9:50 PM EDT 100 mg documented in this encounter Active and Recently Administered Medications Times are shown in EDT. Scheduled Medication Order 04/17/2024 04/18/2024 04/19/2024 Cephalexin (Keflex) cap 500 mg (COMPLETED) 500 mg, Oral, ONCE, On Silva 04/19/24 at 2215, For 1 dose 2149 (Given - Provid er: Aiyana Mg, KRISTOPHER) doxycycline tab 100 mg (COMPLETED) 100 mg, Oral, ONCE, On Silva 04/19/24 at 2215, For 1 dose 2149 (Given - Provid er: Aiyana Mg RN) documented in this encounter Advance Directives * [...] the patient have Health Care Power of Distillery Manager? Yes, not currently available * Full Code [...] Discussed due to patient's condition Care Teams Flow Coordinator Relationship Specialty Start Date End Date Isrrael Bolivar DO [address] [place], [place] [address] [address] PCP - General Family Medicine 11/24/10 documented as of this encounter"
--- OUTSIDE RECORDS SUMMARY | 2024-05-05 21:59 | External Medical Summary | Summary of Care ---
Author Name Unknown Organization [facility] Address [address] [place] [address] Phone [phone] Care Team Providers Care Sugar Trucker Name Role Phone Isrrael Bolivar DO Primary Care Provider [phone] Reason for Visit * Reason Comments Outpatient Testing Encounter Details Date Type Department Care Team (Late st Contact Info) Description 02/23/2024 12:15 PM EDT Laboratory Laboratory, [facility] [address] [place] [phone] [facility], Lab [address] [place] [address] Hypokalemia Allergies No known active allergiesdocumented as of this encounter (statuses as of 02/23/2024) Medications Medication Sig Dispensed Refills Start Date [...] as of this encounter (statuses as of 02/23/2024) Active Problems Problem Noted Date Diagnosed Date Fall at home 12/19/2023 Leg edema 11/10/2023 PAD (peripheral artery disease) 11/10/2023 Elevated transaminase level 11/10/2023 Coronary artery disease invo lving [place] coronary artery of [place] heart without angina pectoris 11/10/2023 Abnormal nuclear [...] as of this encounter (statuses as of 02/23/2024) Resolved Problems Problem Noted Date Diagnosed Date Resolved Date Closed fracture of right femur 12/19/2023 12/26/2023 Closed fracture of right hip 12/19/2023 12/26/2023 Cardiac/pericardial tamponade 11/02/2022 11/05/2022 Hypoxemia 11/24/2018 11/27/2018 Cardiac arrest 11/24/2010 07/14/2011 Ventricular fibrillation 11/24/2010 Acute non Q wave myocardial infarction 11/24/2010 07/14/2011 HTN, goal below 130/80 11/24/201005/11 Overview: Per HTN Protocol #27. documented as of this encounter (statuses as of 02/23/2024) Immunizations Name Administration Dates Next Due Pneumococcal [...] (15 years old or older) No 12/19/19 24 Cognitive Status Response Date of Assessm ent Because of a physical, menta l, or emotional condition, do you have serious difficulty concentrating, remembering, or making decisions? (5 years old or older) No 12/19/2023 documented as of this encounter Plan of Treatment Upcoming Encounters Date Type Department Care Team (Late st Contact Info) Description 03/26/2024 9:15 AM EDT Office Visit Orthopaedics, [facility] [place] [address] [place] [address] Yg Pickering PA-C [address] [place] [address] 04/04/2024 9:00 AM EDT Cardiac Studies [facility] [address] [place] [address] [facility], [facility] [address] [place] [address] 06/18/2024 9:30 AM EDT Office Visit [facility] [address] [place] [address] Nel Rajan PA-C [address] [place] [address] Pending Results Name Type Priority Associated Diagnoses Date /Time BASIC METABOLIC PANEL Lab Routine Hypokalemia 02/23/2024 12:25 PM EDT Health Maintenance Due Date Last Done Comments [...] exists Influenza Vaccine (FLU shot) (Season Ended) 2024 DXA Scan 05/31/2029 05/31/2022, 05/22/2019 Pneumococcal Vaccine: 65+ Years Completed 06/11/2016, 11/16/2013, 12/03/2010, Additional history exists GARDASIL-HPV IMMUNIZATION SERIES Aged Out No longer eligible based on patient's age to complete this topic Hepatitis B Aged Out No longer eligi ble based on patient's age to complete this topic MENINGOCOCCAL (MENACTRA/MENVEO) Aged Out No longer eligible based on patient's age to complete this topic documented as of this encounter Medical Devices Implanted Type Area Neurology Hospitalist Device Identifier Shelf Expiration Date Model / Serial / Lot Lens 21.0 Rhonda - [id number] - [id number] Implanted:Qty: 1 on 01/28/2023 by Christian Woo DO at OR [facility] Lens Right: Eye [employer] 10/12/2025 CNA0T0.210 / [id number] / [place] 6.5mm Partially Threaded (20mm) Screws, Non-Sterile 90mm Implanted:Qty: 2 on 12/21/2023 by Sulaiman Morales MD at OR [facility] Screw Right: Hip DENISE : ORTHOPAEDICS N/A [id number] / N/A / N/A Description:From sterile set on field. No LOT #, Expiration date or serial # present. WD# [id number] per CDM Team [place] 6.5mm Partially Threaded (20mm) Screws, Non-Sterile 95mm Implanted:Qty: 1 on 12/21/2023 by Sulaiman Morales MD at OR [facility] Screw Right: Hip DENISE N/A [id number] / N/A / N/A Description:From sterile set on field. No LOT #, Expiration date or serial # present. # [id number] per CDM Team Lens 20.5 [place] - [id number] - [id number] Implanted:Qty: 1 on 01/04/2023 by Christian Woo DO at OR [facility] Left: Eye [employer] 07/15/2025 CNA0T0.205 / [id number] 135 / documented as of this encounter Visit Diagnoses Diagnosis Hypokalemia Hypopotassemia documented in this encounter Advance Directives * [...] the patient have Health Care Power of Vendette? Yes, not currently available * Full Code [...] Discussed due to patient's condition Care Teams Sugar Trucker Relationship Specialty Start Date End Date Bolivar, Isrrael Robinson, DO [address] [place], [place] [id number] PCP - General Family Medicine 11/24/10 documented as of this encounter
--- OUTSIDE RECORDS SUMMARY | 2024-05-05 21:59 | External Medical Summary | Summary of Care ---
Author Name Unknown Organization [facility] Address [address] [place] [address] Phone [phone] Care Team Providers Care Glass Cutter Hand Name Role Phone Isrrael Bolivar Primary Care Provider [phone] Encounter Details Date Type Department Care Team (Late st Contact Info) Description 02/28/2024 Orders Only PATIENT PORTAL DO NOT DELETE THIS DEPT USED BY [place] [id number] Allergies No known active allergiesdocumented as of this encounter (statuses as of 02/28/2024) Medications Medication Sig Dispensed Refills Start Date [...] as of this encounter (statuses as of 02/28/2024) Active Problems Problem Noted Date Diagnosed Date Fall at home 12/19/2023 Leg edema 11/10/2023 PAD (peripheral artery disease) 11/10/2023 Elevated transaminase level 11/10/2023 Coronary artery disease invo lving [place] coronary artery of [place] heart without angina pectoris 11/10/2023 Abnormal nuclear [...] as of this encounter (statuses as of 02/28/2024) Resolved Problems Problem Noted Date Diagnosed Date Resolved Date Closed fracture of right femur 12/19/2023 12/26/2023 Closed fracture of right hip 12/19/2023 12/26/2023 Cardiac/pericardial tamponade 11/02/2022 11/05/2022 Hypoxemia 11/24/2018 11/27/2018 Cardiac arrest 11/24/2010 07/14/2011 Ventricular fibrillation 11/24/2010 Acute non Q wave myocardial infarction 11/24/2010 07/14/2011 HTN, goal below 130/80 11/24/201005/11 Overview: Per HTN Protocol #27. documented as of this encounter (statuses as of 02/28/2024) Immunizations Name Administration Dates Next Due Pneumococcal [...] 9:15 AM EDT Office Visit [facility] [address] [place] [address] Yg Pickering PA-C [address] [place] [address] 04/04/2024 9:00 AM EDT Cardiac Studies Cardiology, [place] [address] [place] [address] [facility], [facility] [address] [place] [address] 06/18/2024 9:30 AM EDT Office Visit [facility] [address] [place] [address] Nel Rajan PA-C [address] [place] [address] Health Maintenance Due Date Last Done Comments Depression Screening 1947 Diabetic Foot Exam 1953 DTaP,Tdap,and Td Vaccines (1 - Tdap) 01/22/1956 Zoster Vaccines (1 of 2) 1987 Albumin/Creatinine Ratio 12/03/2015 12/02/2014 *SPIROMETRY ONCE FOR ASTHMA-ADULT 11/07/2016 COVID-19 Vaccine ( - 2022-24 season) 2023 Diabetic Eye Exam 09/07/2023 09/07/2022, [...] this encounter Medical Devices Implanted Type Area Power Equipment Technology Instructor Device Identifier Shelf Expiration Date Model / Serial / Lot Lens 21.0 [place]oeon - [id number] - [id number] Implanted:Qty: 1 on 01/28/2023 by Christian Woo DO at OR [facility] Lens Right: Eye [employer] 10/12/2025 CNA0T0.210 / [id number] / [place] 6.5mm Partially Threaded (20mm) Screws, Non-Sterile 90mm Implanted:Qty: 2 on 12/21/2023 by Sulaiman Morales MD at OR [facility] Screw Right: Hip DENISE : ORTHOPAEDICS N/A [id number] / N/A / N/A Description:From sterile set on field. No LOT #, Expiration date or serial # present. # [id number] per CDM Team [place] 6.5mm Partially Threaded (20mm) Screws, Non-Sterile 95mm Implanted:Qty: 1 on 12/21/2023 by Sulaiman Morales MD at OR [facility] Screw Right: Hip DENISE N/A [id number] / N/A / N/A Description:From sterile set on field. No LOT #, Expiration date or serial # present. WD# [id number] per CDM Team Lens 20.5 [place] - [id number] 135 - [id number] Implanted:Qty: 1 on 01/04/2023 by Christian Woo DO at OR [facility] Left: Eye [employer] 07/15/2025 CNA0T0.205 / [id number] 135 / documented as of this encounter [...] the patient have Health Care Power of Marketing Services Coordinator? Yes, not currently available * Full Code [...] Discussed due to patient's condition Care Teams Glass Cutter Hand Relationship Specialty Start Date End Date Isrrael Bolivar DO [address] [facility] [place] [address] PCP - General Family Medicine 11/24/10 documented as of this encounter
--- OUTSIDE RECORDS SUMMARY | 2024-05-05 21:59 | External Medical Summary ---
Author Name Unknown Address Unknown Organization K1F:[facility] - [address] [place] [address] Laboratory Report Ordering Provider Test Date Status BRADLEY SANCHEZ 04/19/2024 19:19:00 Final Observation Date Value Abnormality Reference (Units ) Status Lactic Acid 04/19/2024 19:19:00 1.3 0.4-2.0 (mmol/L) Final Performing Location [facility] - [address] [place] [address]
--- OUTSIDE RECORDS SUMMARY | 2024-05-05 21:59 | External Medical Summary | Summary of Care ---
Author Name Unknown Organization [facility] Address [address] [place] [address] Phone [phone] Care Team Providers Care Water Taxi Driver Name Role Phone Isrrael Bolivar Primary Care Provider [phone] Encounter Details Date Type Department Care Team (Latest Contact Info) Description 03/26/2024 9:36 AM EDT - 03/26/2024 11:59 PM EDT Hospital Encounter Orthopaedics, [address], [place] [address] [place] [address] Arrived Discharge Disposition: Home - Self Care Allergies No known active allergiesdocumented as of this encounter (statuses as of 03/27/2024) Medications Medication Sig Dispensed Refills Start Date [...] as of this encounter (statuses as of 03/27/2024) Active Problems Problem Noted Date Diagnosed Date Fall at home 12/19/2023 Leg edema 11/10/2023 PAD (peripheral artery disease) 11/10/2023 Elevated transaminase level 11/10/2023 Coronary artery disease invo lving [place] coronary artery of [place] heart without angina pectoris 11/10/2023 Abnormal nuclear [...] as of this encounter (statuses as of 03/27/2024) Resolved Problems Problem Noted Date Diagnosed Date Resolved Date Closed fracture of right femur 12/19/2023 12/26/2023 Closed fracture of right hip 12/19/2023 12/26/2023 Cardiac/pericardial tamponade 11/02/2022 11/05/2022 Hypoxemia 11/24/2018 11/27/2018 Cardiac arrest 11/24/2010 07/14/2011 Ventricular fibrillation 11/24/2010 Acute non Q wave myocardial infarction 11/24/2010 07/14/2011 HTN, goal below 130/80 11/24/201005/11 Overview: Per HTN Protocol #27. documented as of this encounter (statuses as of 03/27/2024) Immunizations Name Administration Dates Next Due Pneumococcal [...] Care Team (Late st Contact Info) Description 04/04/2024 9:00 AM EDT Cardiac Studies [facility] [place] [address] [place] [address] [facility] [address] [place] [address] 06/18/2024 9:30 AM EDT Office Visit [facility] [address] [place] [address] Nel Rajan PA-C [address] [place] [address] Pending Results Name Type Priority Associated Diagnoses Date /Time XR HIP UNILAT 2-3 VIEWS INCLUDING AP PELVIS Medical Imaging Routine Aftercare following surgery for injury or trauma 03/26/2024 9:49 AM EDT Health Maintenance Due Date Last Done Comments Depression Screening 1947 Diabetic Foot Exam 1955 DTaP,Tdap,and Td Vaccines (1 - Tdap) 01/22/1956 Zoster Vaccines (1 of 2) 1987 Albumin/Creatinine Ratio 12/03/2015 12/02/2014 *SPIROMETRY ONCE FOR ASTHMA-ADULT 11/07/2016 COVID-19 Vaccine (1 - 2022-24 season) 2023 Diabetic Eye Exam [...] this encounter Medical Devices Implanted Type Area Fuse Spooler Device Identifier Shelf Expiration Date Model / Serial / Lot Lens 21.0 Rhonda - [id number] - [id number] Implanted:Qty: 1 on 01/28/2023 by Christian Woo DO at OR [facility] Lens Right: Eye [employer] 10/12/2025 CNA0T0.210 / [id number] / [place] 6.5mm Partially Threaded (20mm) Screws, Non-Sterile 90mm Implanted:Qty: 2 on 12/21/2023 by Sulaiman Morales MD at OR [facility] Screw Right: Hip DENISE : ORTHOPAEDICS N/A [id number] / N/A / N/A Description:From sterile set on field. No LOT #, Expiration date or serial # present. # [id number] per CDM Team [place] 6.5mm Partially Threaded (20mm) Screws, Non-Sterile 95mm Implanted:Qty: 1 on 12/21/2023 by Sulaiman Morales MD at OR [facility] Screw Right: Hip DENISE N/A [id number] / N/A / N/A Description:From sterile set on field. No LOT #, Expiration date or serial # present. # [id number] per CDM Team Lens 20.5 [place] - [id number] - [id number] Implanted:Qty: 1 on 01/04/2023 by Christian Woo DO at OR [facility] Left: Eye [employer] 07/15/2025 CNA0T0.205 / [id number] 135 / documented as of this encounter [...] the patient have Health Care Power of Employee Relations Manager? Yes, not currently available * Full [...] Discussed due to patient's condition Care Teams Water Taxi Driver Relationship Specialty Start Date End Date Isrrael [facility] [address] [facility] [id number] PCP - General Family Medicine 11/24/10 documented as of this encounter
--- OUTSIDE RECORDS SUMMARY | 2024-05-05 21:59 | External Medical Summary ---
Author Name Unknown Address Unknown Organization K1F:[facility] - [address] [facility] [place] [address] Laboratory Report Ordering Provider Test Date Status BRADLEY SANCHEZ 04/19/2024 19:19:00 Final Observation Date Value Abnormality Reference (Units ) Status BUN 04/19/2024 19:19:00 20 6-20 (mg/dL) Final Creatinine 04/19/2024 19:19:00 1.2 Above high normal 0.5-1.0 (mg/dL) Final Glomerular filtration rate/1.73 sq M.predicted [Volume Rate/Area] in Serum, Plasma or Blood by Creatinine-based formula (CKD-EPI) 04/19/2024 19:19:00 45 Below low normal >=60 (mL/min) Final eGFR is calculated based on the CKD-EPI 2020 equation. Sodium 04/19/2024 19:19:00 141 135-146 (m mol/L) Final Potassium 04/19/2024 19:19:00 4.3 3.5-5.1 (m mol/L) Final Cl 04/19/2024 19:19:00 102 98-107 (mm ol/L) Final CO2 04/19/2024 19:19:00 29 22-32 (mmo l/L) Final Anion gap 04/19/2024 19:19:00 10 7-15 (mmol /L) Final Glucose 04/19/2024 19:19:00 155 Above high normal 70 -120 (mg/dL) Final Albumin 04/19/2024 19:19:00 3.6 Below low normal 3.8 -5.0 (g/dL) Final AST (Aspartate aminotransferase) 04/19/2024 19:19:00 13 10-35 (U/L) Fin al Alk Phos 04/19/2024 19:19:00 113 35-130 (U/ L) Final Bilirubin, Total 04/19/2024 19:19:00 0.5 <=1 .2 (mg/dL) Final Calcium 04/19/2024 19:19:00 8.9 8.4-10.2 ( mg/dL) Final Protein 04/19/2024 19:19:00 6.3 6.0-8.3 (g /dL) Final ALT (Alanine aminotransferase) 04/19/2024 19:19:00 13 10-35 (U/L) Kishan gao Performing Location LABORATORY [facility] - [address] [place], [place] [address] [place] [address]
--- OUTSIDE RECORDS SUMMARY | 2024-05-05 21:59 | External Medical Summary | Summary of Care ---
Author Name Unknown Organization [facility] Address [address] [place] [address] Phone [phone] Care Team Providers Care Teacher Ballet Name Role Phone Isrrael Bolivar Primary Care Provider [phone] Reason for Visit * Reason Comments Post-Op R hip fx, DOS 12/21/23 , Encounter Details Date Type Department Care Team (Late st Contact Info) Description 03/26/2024 9:15 AM EDT Office Visit Orthopaedics, [address], [place] [address] [place], [place] [id number] Yg Pickering PA-C [address] [place] [address] Aftercare following surgery for injury or trauma* Allergies No known active allergiesdocumented as of this encounter (statuses as of 03/26/2024) Medications Medication Sig Dispensed Refills Start Date [...] as of this encounter (statuses as of 03/26/2024) Active Problems Problem Noted Date Diagnosed Date Fall at home 12/19/2023 Leg edema 11/10/2023 PAD (peripheral artery disease) 11/10/2023 Elevated transaminase level 11/10/2023 Coronary artery disease invo lving [place] coronary artery of [place] heart without angina pectoris 11/10/2023 Abnormal nuclear [...] as of this encounter (statuses as of 03/26/2024) Resolved Problems Problem Noted Date Diagnosed Date Resolved Date Closed fracture of right femur 12/19/2023 12/26/2023 Closed fracture of right hip 12/19/2023 12/26/2023 Cardiac/pericardial tamponade 11/02/2022 11/05/2022 Hypoxemia 11/24/2018 11/27/2018 Cardiac arrest 11/24/2010 07/14/2011 Ventricular fibrillation 11/24/2010 Acute non Q wave myocardial infarction 11/24/2010 07/14/2011 HTN, goal below 130/80 11/24/201005/11 Overview: Per HTN Protocol #27. documented as of this encounter (statuses as of 03/26/2024) Immunizations Name Administration Dates Next Due Pneumococcal Polysaccharide PPV23 (Pneumovax) documented as of this encounter Social History Tobacco Use Types Packs/Day Years Used Date Smoking Tobacco: Never Smokeless Tobacco: Never Tobacco Cessation:Counseling Given: Not Answered Alcohol Use Standard Drinks/Week Comments No 0 [...] Sign Reading Time Taken Comments Blood Pressure - - Pulse - - Temperature - - Respiratory Rate - - Oxygen Saturation - - Inhaled Oxygen Concentration - - Weight 60.8 kg (134 lb) 03/26/2024 9:34 AM EDT Height 162.6 cm (5' 4") 03/26/2024 9:34 AM EDT Body Mass Index 23 03/26/2024 9:34 AM [...] No 12/19/2023 documented as of this encounter Progress Notes * Yg Pickering PA-C - 03/26/2024 10:11 AM EDT 12 weeks status post percutaneous screw fixation of right subcapital femoral neck fracture performed by Dr. Morales on 12/21/2023. Patient states that her symptoms are resolved 0/10 and states she hasessentially had no pain whatsoever since her procedure. Denies any new injury or fall. Denies any calf pain. Denies any fevers or chills. No shortness of breath or chest pain. Will need repeat x-raysof the right hip today. Has remained protected weightbear foot flat but does admit she has been gradually increasing her weight-bearing status during pivot and transfers with no pain. Was discharged from rehab and back in her apartment living with her granddaughter who helps and assist with ADLs and elective activity. Denies any residual issues with that Complete review systems negative General: alert and oriented x3 female, no acute distress, appears currently stated age, pleasant, well nourished, here with her daughter Skin: Right hip reveals postsurgical scar that is well healed over and without hypertrophy or keloid.. The right hip does not reveal any erythema, effusion, ecchymosis, abrasion, laceration, skin breakdown otherwise Neurovascular: Right lower extremity is neurovascularly intact with good sensation strength throughout, calf supple nontender, toes were mobile, +5 strength dorsi and plantar flexion of the foot Musculoskeletal: Right exam reveals active range of motion that is without discomfort in the hip orgroin. Passively I am able to flex abduct and internally externally rotate the right hip without any discomfort. The patient reveals 4+ out of 5 with resistance during abduction, adduction, flexion extension. The patient had no discomfort while performing any exam today on the right hip. The patient was able to rise from a seated position on her own today, stand without assistance but then with the assistance is able to ambulate without any discomfort or appreciable weakness. X-rays of the right hip reveal postsurgical changes with screw fixation x3 that has maintained proper alignment when comparing to intraoperative films. There has no evidence of darell implant failure or darell implant fracture. No evidence of hardware loosening. Unable to identify any type of obvious cystic changes or masses in the bone. Continues to maintain stability. Official radiology report to follow accordingly and we listed in the patient's chart under imaging. Personal interpretation and documentation regarding today's plain film radiographs performed by myself. Impression: 12 weeks status post percutaneous screw fixation of right subcapital femoral neck fracture, continued healing and improvement Plan: Today 's findings were discussed with the patient. They were educated regarding their diagnosis. Multiple treatment options discussed and agreed upon, including continued increasing weight-bearing to full per comfort levels over the next several weeks, which ultimately the patient is already doing and seems to be 6 eating quite well with. Recommended walker upwards of 2 years status post injury and surgery. The patient is doing well, in my opinion. The patient has no other questions or concerns. Pleased with today 's care. Call sooner if needed. This chart was completed in part utilizing [email or web address] Voice Recognition Software. Grammatical errors, random word insertions, prounoun errors, and incomplete sentences are an occasional consequence of this system due to software limitations, ambient noise, and hardware issues. Any formal questions or concerns about the content, text, or information contained within the body of this dictation should be directly addressed to the provider for clarificatio documented in this encounter Nursing Notes * Balaji Ruvalcaba LPN - 03/26/2024 9:35 AM EDT Chief Complaint Patient presents with Post-Op R hip fx, DOS 12/21/23, documented in this encounter Plan of Treatment Upcoming Encounters Date Type Department Care Team (Late st Contact Info) Description 04/04/2024 9:00 AM EDT Cardiac Studies [facility] [address] [place] [address] [facility] [address] [address] 06/18/2024 9:30 AM EDT Office Visit [facility] [address] [address] Nel Rajan PA-C [address] [address] Pending Results Name Type Priority Associated Diagnoses [...] this encounter Medical Devices Implanted Type Area Operation Manager Device Identifier Shelf Expiration Date Model / Serial / Lot Lens 21.0 [facility] - [id number] - [id number] Implanted:Qty: 1 on 01/28/2023 by Christian Woo DO at OR [facility] Lens Right: Eye [employer] 10/12/2025 CNA0T0.210 / [id number] / Denise 6.5mm Partially Threaded (20mm) Screws, Non-Sterile 90mm Implanted:Qty: 2 on 12/21/2023 by Sulaiman Morales MD at OR [facility] Screw Right: Hip DENISE : ORTHOPAEDICS N/A [id number] / N/A / N/A Description:From sterile set on field. No LOT #, Expiration date or serial # present. WD# [id number] per CDM Team Denise 6.5mm Partially Threaded (20mm) Screws, Non-Sterile 95mm Implanted:Qty: 1 on 12/21/2023 by Sulaiman Morales MD at OR [facility] Screw Right: Hip DENISE N/A [id number] / N/A / N/A Description:From sterile set on field. No LOT #, Expiration date or serial # present. # [id number] per CDM Team Lens 20.5 [employer] - [id number] - [id number] Implanted:Qty: 1 on 01/04/2023 by Christian Woo DO at OR [facility] Left: Eye [employer] 07/15/2025 CNA0T0.205 / [id number] / documented as of this encounter Visit Diagnoses Diagnosis Aftercare following surgery for injury or trauma- Primary Aftercare following surgery for injury and trauma documented in this encounter Advance Directives * [...] the patient have Health Care Power of Trucking Manager? Yes, not currently available * Full [...] Discussed due to patient's condition Care Teams Teacher Ballet Relationship Specialty Start Date End Date Isrrael Bolivar DO [address] [place], [place] [phone] PCP - General Family Medicine 11/24/10 documented as of this encounter
--- OUTSIDE RECORDS SUMMARY | 2024-05-05 21:59 | External Medical Summary | Summary of Care ---
Author Name Unknown Organization [facility] Address [address] [place] [address] Phone [phone] Care Team Providers Care Red Hat Linux Engineer Name Role Phone BolivarIsrrael ford Primary Care Provider [phone] Encounter Details Date Type Department Care Team (Late st Contact Info) Description 04/19/2024 Documentation Cardiology, [address] [place] [address] Rosario Steele RN Allergies No known active allergiesdocumented as of this encounter (statuses as of 04/19/2024) Medications Medication Sig Dispensed Refills Start Date [...] as of this encounter (statuses as of 04/19/2024) Active Problems Problem Noted Date Diagnosed Date Fall at home 12/19/2023 Leg edema 11/10/2023 PAD (peripheral artery disease) 11/10/2023 Elevated transaminase level 11/10/2023 Coronary artery disease invo lving [place] coronary artery of [place] heart without angina pectoris 11/10/2023 Abnormal nuclear [...] as of this encounter (statuses as of 04/19/2024) Resolved Problems Problem Noted Date Diagnosed Date Resolved Date Closed fracture of right femur 12/19/2023 12/26/2023 Closed fracture of right hip 12/19/2023 12/26/2023 Cardiac/pericardial tamponade 11/02/2022 11/05/2022 Hypoxemia 11/24/2018 11/27/2018 Cardiac arrest 11/24/2010 07/14/2011 Ventricular fibrillation 11/24/2010 Acute non Q wave myocardial infarction 11/24/2010 07/14/2011 HTN, goal below 130/80 11/24/201005/11 Overview: Per HTN Protocol #27. documented as of this encounter (statuses as of 04/19/2024) Immunizations Name Administration Dates Next Due Pneumococcal [...] of this encounter Progress Notes * Rosario Steele, RN - 04/19/2024 2:24 PM EDT This phone call is to notify your bedside monitor is not communicating with your implanted device. Please make sure your box is connected and send a manual transmission to reconnect. If you are having transmission difficulty you can call [employer] Stay Connected at . It is very important to have your implanted device checked regularly. documented in this encounter Plan of Treatment Upcoming Encounters Date Type Department Care Team (Late st Contact Info) Description 06/18/2024 9:30 AM EDT Office Visit [facility] [address] [address] Nel Rajan PA-C [address] [address] 04/04/2025 9:00 AM EDT Cardiac Studies [facility] [address] [place] [address] [facility] [address] [place] [address] Health Maintenance Due Date Last Done Comments [...] this encounter Medical Devices Implanted Type Area Molding Machine Tender Device Identifier Shelf Expiration Date Model / Serial / Lot Lens 21.0 [employer] - [id number] - [id number] Implanted:Qty: 1 on 01/28/2023 by Christian Woo DO at OR [facility] Lens Right: Eye [employer] 10/12/2025 CNA0T0.210 / [id number] / Denise 6.5mm Partially Threaded (20mm) Screws, Non-Sterile 90mm Implanted:Qty: 2 on 12/21/2023 by Sulaiman Morales MD at OR [facility] Screw Right: Hip DENISE : ORTHOPAEDICS N/A [id number] / N/A / N/A Description:From sterile set on field. No LOT #, Expiration date or serial # present. WD# [id number] per CDM Team [place] 6.5mm Partially Threaded (20mm) Screws, Non-Sterile 95mm Implanted:Qty: 1 on 12/21/2023 by Sulaiman Morales MD at OR [facility] Screw Right: Hip DENISE N/A [id number] / N/A / N/A Description:From sterile set on field. No LOT #, Expiration date or serial # present. WD# [id number] per CDM Team Lens 20.5 [place] - [id number] - [id number] Implanted:Qty: 1 on 01/04/2023 by Christian Woo DO at OR [facility] Left: Eye [employer] 07/15/2025 CNA0T0.205 / [id number] 135 / documented as of this encounter [...] patient have Health Care Power of Rn Procedures? Yes, not currently available * Full Code [...] Discussed due to patient's condition Care Teams Red Hat Linux Engineer Relationship Specialty Start Date End Date Isrrael Bolivar DO [address] [place], [place] [phone] PCP - General Family Medicine 11/24/10 documented as of this encounter
--- OUTSIDE RECORDS SUMMARY | 2024-05-05 21:59 | External Medical Summary | Summary of Care ---
Author Name Unknown Organization [facility] Address [address] [place] [address] Phone [phone] Care Team Providers Care Tower Technician Name Role Phone Isrrael Bolivar Primary Care Provider [phone] Encounter Details Date Type Department Care Team (Late st Contact Info) Description 02/20/2024 Orders Only PATIENT PORTAL DO NOT DELETE THIS DEPT USED BY [place] [id number] Allergies No known active allergiesdocumented as of this encounter (statuses as of 02/20/2024) Medications Medication Sig Dispensed Refills Start Date [...] Tablets before bedtime. 6 Tablet 02/17/2024 Active documented as of this encounter (statuses as of 02/20/2024) Active Problems Problem Noted Date Diagnosed Date Fall at home 12/19/2023 Leg edema 11/10/2023 PAD (peripheral artery disease) 11/10/2023 Elevated transaminase level 11/10/2023 Coronary artery disease invo lving [place] coronary artery of [place] heart without angina pectoris 11/10/2023 Abnormal nuclear [...] as of this encounter (statuses as of 02/20/2024) Resolved Problems Problem Noted Date Diagnosed Date Resolved Date Closed fracture of right femur 12/19/2023 12/26/2023 Closed fracture of right hip 12/19/2023 12/26/2023 Cardiac/pericardial tamponade 11/02/2022 11/05/2022 Hypoxemia 11/24/2018 11/27/2018 Cardiac arrest 11/24/2010 07/14/2011 Ventricular fibrillation 11/24/2010 Acute non Q wave myocardial infarction 11/24/2010 07/14/2011 HTN, goal below 130/80 11/24/201005/11 Overview: Per HTN Protocol #27. documented as of this encounter (statuses as of 02/20/2024) Immunizations Name Administration Dates Next Due Pneumococcal [...] Care Team (Late st Contact Info) Description 02/20/2024 10:00 AM EDT Office Visit Orthopaedics [facility] [address] [place] [address] Yg Pickering PA-C [address] [place] [address] 04/04/2024 9:00 AM EDT Cardiac Studies Cardiology, [place] [address] [place] [address] [facility] [address] [place] [address] 06/18/2024 9:30 AM EDT Office Visit [place], [place] [address] [place] [address] Nel Rajan PA-C [address] [place] [address] Health Maintenance Due Date Last Done Comments [...] this encounter Medical Devices Implanted Type Area Insurance Service Representative Device Identifier Shelf Expiration Date Model / Serial / Lot Lens 21.0 [place] - [id number] - [id number] Implanted:Qty: 1 on 01/28/2023 by Christian Woo DO at OR [facility] Lens Right: Eye [employer] 10/12/2025 CNA0T0.210 / [id number] / Denise 6.5mm Partially Threaded (20mm) Screws, Non-Sterile 90mm Implanted:Qty: 2 on 12/21/2023 by Sulaiman Morales MD at OR [facility] Screw Right: Hip DENISE : ORTHOPAEDICS N/A [id number] / N/A / N/A Description:From sterile set on field. No LOT #, Expiration date or serial # present. # [id number] per CDM Team Denise 6.5mm Partially Threaded (20mm) Screws, Non-Sterile 95mm Implanted:Qty: 1 on 12/21/2023 by Sulaiman Morales MD at OR [facility] Screw Right: Hip DENISE N/A [id number] / N/A / N/A Description:From sterile set on field. No LOT #, Expiration date or serial # present. WD# [id number] per CDM Team Lens 20.5 [place] - [id number] - [id number] Implanted:Qty: 1 on 01/04/2023 by Christian Woo DO at OR [facility] Left: Eye [employer] 07/15/2025 CNA0T0.205 / [id number] 135 / documented as of this encounter [...] 1:54 PM 12/21/2023 10:03 AM This order r eflects the patients wishes [...] the patient have Health Care Power of Adult Literacy Teacher? Yes, not currently available * Full Code [...] Discussed due to patient's condition Care Teams Tower Technician Relationship Specialty Start Date End Date Isrrael Bolivar DO [address] [place] [address] PCP - General Family Medicine 11/24/10 documented as of this encounter
--- OUTSIDE RECORDS SUMMARY | 2024-05-05 21:59 | External Medical Summary ---
Author Name Unknown Address Unknown Organization K1F:[facility]ATORY [facility] - [address] [place] [address] Laboratory Report Ordering Provider Test Date Status BRADLEY SANCHEZ 04/19/2024 20:44:00 Final Exclude Heart Failure: <300 pg/mL
Diagnose Heart Failure:
Age <50 yr: >450 pg/mL
50-75 yr: >900 pg/mL
>75 yr: >1800 pg/mL
GFR is 30-59 mL/min: >1200 pg/mL or Age- adjusted values
GFR <30 mL/min: do not use, not reliable

Prognostic threshold: 1000 pg/mL Observation Date Value Abnormality Reference (Units ) Status BNP, Pro-hormone 04/19/2024 20:44:00 746 Above high no rmal <300 (pg/mL) Final Performing Location [facility] - [address] [place] [address]
--- OUTSIDE RECORDS SUMMARY | 2024-05-05 21:59 | External Medical Summary | Summary of Care ---
Author Name Unknown Organization [facility] Address [address] [place] [address] Phone [phone] Care Team Providers Care Pvc Loader Name Role Phone Isrrael Bolivar DO Primary Care Provider [phone] Reason for Visit * Reason Comments Follow Up R hip Encounter Details Date Type Department Care Team (Latest Contact Info) Description 02/20/2024 10:00 AM EDT Office Visit Orthopaedics [facility] [address] [place] [address] Yg Pickering PA-C [address] [place] [address] Aftercare following surgery of the musculoskeletal system* Allergies No known active allergiesdocumented as of [...] level 11/10/2023 Coronary artery disease invo lving [place] coronary artery of [place] heart without angina pectoris 11/10/2023 Abnormal nuclear [...] Progress Notes * Yg Pickering PA-C - 02/20/2024 10:04 AM EDT 8 weeks status post percutaneous screw fixation of right subcapital femoral neck fracture performedby Dr. Morales on 12/21/2023. Patient states that her symptoms are resolved . Denies any new injury or fall. Denies any calf pain. Denies any fevers or chills. No shortness of breath or chest pain. Will need repeat x- rays of the right hip today. Has remained nonweightbearing protected weightbear foot flat. Is currently at rehab during her postoperative course. Complete review systems negative General: alert and oriented x3 female, no acute distress, appears currently stated age, pleasant, well nourished, here with her daughter Skin: Right hip reveals postsurgical scar that is well healed over and without hypertrophy or keloid Ng. The right hip does not reveal any [...] hip without any discomfort. The patient reveals resistance in terms of positive strength measures 4+ out of 5 withresistance during abduction, adduction, flexion extension. Certainly did not increase resistance inorder to ensure continued maintenance of surgical fixation and avoid compromising. The patient had no discomfort while performing any exam today on the right hip X-rays of the right hip reveal postsurgical [...] plain film radiographs performed by myself. Impression: 8 weeks status post percutaneous screw fixation of right subcapital femoral neck fracture, continued healing and improvement Plan: Today 's findings were discussed with the patient. They were educated regarding their diagnosis. Multiple treatment options discussed and agreed upon, including continued parameters of nonweightbearing right lower extremity foot flat to surgical extremity for transfer assistance. Will continue with physical therapy, pain control, completion of DVT prophylaxis, thermal modalities, behavior modification and rest. Will follow up with in four weeks and obtain final radiographs of the right hip and increased weight-bearing status. The patient has no other questions or concerns. Pleased with today 's care. Call sooner if needed. This chart was completed in part utilizing [employer] Speech Voice Recognition Software. Grammatical errors, random [...] documented in this encounter Nursing Notes * Lin Hahn ATC - 02/20/2024 10:00 AM EDT R hip. DOS 12/21/[address] Morales on R hip. No complaints of pain. Continues with PT. Continues to use wheelchair. Reports not needing pain meds for the hip. Recent ER visit but not related to the hip. documented in this encounter Plan of Treatment Upcoming Encounters Date Type Department Care Team (Late st Contact Info) Description 03/26/2024 9:15 AM EDT Office Visit Orthopaedics, [address], [place] [address] [place] [address] Yg Pickering PA-C [address] [place] [address] 04/04/2024 9:00 AM EDT Cardiac Studies Cardiology, [place] [address] [place] [address] [facility] [address] [place] [address] 06/18/2024 9:30 AM EDT Office Visit Cardiology, [place] [address] [place] [address] Nel Rajan PA-C [address] [place] [address] Pending Results Name Type Priority Associated Diagnoses Date /Time XR HIP UNILAT 2-3 VIEWS INCLUDING AP PELVIS Medical Imaging Routine Aftercare following surgery of the musculoskeletal system 02/20/2024 10:23 AM EDT Health Maintenance Due Date Last [...] this encounter Medical Devices Implanted Type Area Tuber Operator Device Identifier Shelf Expiration Date Model / Serial / Lot Lens 21.0 [employer] - [id number] - [id number] Implanted:Qty: 1 on 01/28/2023 by Christian Woo DO at OR [facility] Lens Right: Eye [employer] 10/12/2025 CNA0T0.210 / [id number] / Denise 6.5mm Partially Threaded (20mm) Screws, Non-Sterile 90mm Implanted:Qty: 2 on 12/21/2023 by Sulaiman Morales MD at OR [facility] Screw Right: Hip DENISE : ORTHOPAEDICS N/A [id number] / N/A / N/A Description:From sterile set on field. No LOT #, Expiration date or serial # present. WD# [id number] per CDM Team [place]ise 6.5mm Partially Threaded (20mm) Screws, Non-Sterile 95mm Implanted:Qty: 1 on 12/21/2023 by Sulaiman Morales MD at OR [facility] Screw Right: Hip DENISE N/A [id number] / N/A / N/A Description:From sterile set on field. No LOT #, Expiration date or serial # present. WD# [id number] per CDM Team Lens 20.5 [place] - [id number] - [id number] Implanted:Qty: 1 on 01/04/2023 by Christian Woo DO at OR [facility] Left: Eye [employer] 07/15/2025 CNA0T0.205 / [id number] / documented as of this encounter Visit Diagnoses Diagnosis Aftercare following surgery of the musculoskeletal system- Primary Aftercare following surgery of the musculoskeletal system, NEC documented in this encounter Advance Directives * [...] the patient have Health Care Power of Non Profit Job Titles? Yes, not currently available * Full Code [...] Discussed due to patient's condition Care Teams Pvc Loader Relationship Specialty Start Date End Date Isrrael Bolivar DO [address] [place] [address] PCP - General Family Medicine 11/24/10 documented as of this encounter
--- OUTSIDE RECORDS SUMMARY | 2024-05-05 21:59 | External Medical Summary ---
Author Name Unknown Address Unknown Organization K1F:LABORATORY [facility] - [address] [place] [address] Laboratory Report Ordering Provider Test Date Status BRADLEY SANCHEZ 04/19/2024 19:19:00 Final Observation Date Value Abnormality Reference (Units ) Status WBC, Total 04/19/2024 19:19:00 9.63 4.00-10.80 (K/uL) Final RBC 04/19/2024 19:19:00 5.42 3.85-5.15 (M/uL) Final Hemoglobin 04/19/2024 19:19:00 13.5 12.0-15.3 (g/dL) Final HCT 04/19/2024 19:19:00 43.5 36.0-45.2 (%) Final MCV 04/19/2024 19:19:00 80.3 81.5-97.5 (fL) Final MCH 04/19/2024 19:19:00 24.9 27.0-34.0 (pg) Final MCHC 04/19/2024 19:19:00 31.0 32.0-36.0 (g/dL) Final RDW 04/19/2024 19:19:00 20.2 11.5-15.5 (%) Final Platelets 04/19/2024 19:19:00 185 140-400 (K/uL) Final MPV 04/19/2024 19:19:00 11.0 6.6-11.1 (fL) Final Nucleated erythrocytes/100 leukocytes [Ratio] in Blood by Automated count 04/19/2024 19:19:00 0 <=0 (/100 WBCs) Final Performing Location LABORATORY [facility] - [address] [place] [address]
--- OUTSIDE RECORDS SUMMARY | 2024-05-05 21:59 | External Medical Summary | Summary of Care ---
Author Name Unknown Organization [facility] Address [address] [place] [address] Phone [phone] Care Team Providers Care Casing Soaker Name Role Phone BolivarJulio fordn Robinson Primary Care Provider [phone] Reason for Visit * Reason Comments Defibrillator Clinic Encounter Details Date Type Department Care Team (Latest Contact Info) Description 04/04/2024 9:00 AM EDT Cardiac Studies Cardiology, [place] [address] [place] [address] [place] [address] [place] [address] Permanent atrial fibrillation (HCC)*; Ventricular fibrillation (HCC); Cardiac arrest (HCC); Non-ischemic cardiomyopathy (HCC); ICD (implantable cardioverter-defibrill ator), single, in situ Allergies No known active allergiesdocumented as of this encounter (statuses as of 04/04/2024) Medications Medication Sig Dispensed Refills Start Date [...] as of this encounter (statuses as of 04/04/2024) Active Problems Problem Noted Date Diagnosed Date Fall at home 12/19/2023 Leg edema 11/10/2023 PAD (peripheral artery disease) 11/10/2023 Elevated transaminase level 11/10/2023 Coronary artery disease invo lving [place] coronary artery of [place] heart without angina pectoris 11/10/2023 Abnormal nuclear [...] as of this encounter (statuses as of 04/04/2024) Resolved Problems Problem Noted Date Diagnosed Date Resolved Date Closed fracture of right femur 12/19/2023 12/26/2023 Closed fracture of right hip 12/19/2023 12/26/2023 Cardiac/pericardial tamponade 11/02/2022 11/05/2022 Hypoxemia 11/24/2018 11/27/2018 Cardiac arrest 11/24/2010 07/14/2011 Ventricular fibrillation 11/24/2010 Acute non Q wave myocardial infarction 11/24/2010 07/14/2011 HTN, goal below 130/80 11/24/201005/11 Overview: Per HTN Protocol #27. documented as of this encounter (statuses as of 04/04/2024) Immunizations Name Administration Dates Next Due Pneumococcal [...] Progress Notes * Rosario Steele RN - 04/04/2024 8:55 AM EDT Patient and implanted device were evaluated today in the [facility] Device [facility]. Providers please see scanned report in the Scans tab. Rosario Steele RN documented in this encounter Plan of Treatment Upcoming Encounters Date Type Department Care Team (Late st Contact Info) Description 06/18/2024 9:30 AM EDT Office Visit Cardiology, [place] [address] [place] [phone] Nel Rajan PA-C [address] [place] [address] 04/04/2025 9:00 AM EDT Cardiac Studies Cardiology, [place] [address] [place] [address] [place], Pacer [facility] [address] [place] [address] Scheduled Orders Name Type Priority Associated Diagnoses Orde r Schedule SINGLE-LEAD DEFIBRILLATOR + REPROGRAM Procedures Routine Permanent atrial fibrillation (HCC) Ventricular fibrillation (HCC) Cardiac arrest (HCC) Non-ischemic cardiomyopathy (HCC) ICD (implantable cardioverter-defibrillat or), single, in situ Ordered: 04/04/2024 Health Maintenance Due Date Last Done Comments [...] this encounter Medical Devices Implanted Type Area University Internship Device Identifier Shelf Expiration Date Model / Serial / Lot Lens 21.0 [place] - [id number] - [id number] Implanted:Qty: 1 on 01/28/2023 by Christian Woo DO at OR [facility] Lens Right: Eye [employer] 10/12/2025 CNA0T0.210 / [id number] / [place] 6.5mm Partially Threaded (20mm) Screws, Non-Sterile 90mm Implanted:Qty: 2 on 12/21/2023 by Sulaiman Morales MD at OR [facility] Screw Right: Hip DENISE : ORTHOPAEDICS N/A [id number] / N/A / N/A Description:From sterile set on field. No LOT #, Expiration date or serial # present. WD# [id number] per CDM Team [place] 6.5mm Partially Threaded (20mm) Screws, Non-Sterile 95mm Implanted:Qty: 1 on 12/21/2023 by Sulaiman Morales MD at OR [facility] Screw Right: Hip DENISE N/A [id number] / N/A / N/A Description:From sterile set on field. No LOT #, Expiration date or serial # present. WD# [id number] per CDM Team Lens 20.5 [facility] - [id number] - [id number] Implanted:Qty: 1 on 01/04/2023 by Christian Woo DO at OR [facility] Left: Eye [employer] 07/15/2025 CNA0T0.205 / [id number] / documented as of this encounter Visit Diagnoses Diagnosis Permanent atrial fibrillation (HCC)- Primary Atrial fibrillation Ventricular fibrillation (HCC) Ventricular fibrillation Cardiac arrest (HCC) Cardiac arrest Non-ischemic cardiomyopathy (HCC) Other primary cardiomyopathies ICD (implantable cardioverter-defibrillator), single, in situ documented in this encounter Advance Directives * [...] the patient have Health Care Power of Painter Ski Edge? Yes, not currently available * Full Code [...] Discussed due to patient's condition Care Teams Casing Soaker Relationship Specialty Start Date End Date Isrrael Bolivar DO [address] [facility] [place] [address] PCP - General Family Medicine 11/24/10 documented as of this encounter
--- OUTSIDE RECORDS SUMMARY | 2024-05-05 21:59 | External Medical Summary ---
Author Name Unknown Address Unknown Organization K1F:LABORATORY [facility] - [address] [facility] [place] [address] Laboratory Report Ordering Provider Test Date Status BRADLEY SANCHEZ 04/19/2024 19:19:00 Final Observation Date Value Abnormality Reference (Units ) Status SYNC LEUKOCYTES IN BLOOD BY AUTOMATED COUNT 04/19/2024 19:19:00 9.63 4.00-10.80 (K/uL) Final Segs 04/19/2024 19:19:00 63.8 40.0-75.0 (%) Final Lymphs % 04/19/2024 19:19:00 25.8 18.0-42.0 (%) Final Monos 04/19/2024 19:19:00 9.0 1.0-11.0 (%) Final Eosinophils 04/19/2024 19:19:00 1.0 0.0-6.0 (%) Final Basos 04/19/2024 19:19:00 0.1 0.0-2.0 (%) Final Immature Granulocyte, Percent 04/19/2024 19:19:00 0.3 0.0-2.0 (%) Final Absolute Segs 04/19/2024 19:19:00 6.14 1.80-7.70 (K/uL) Final Lymphs, absolute 04/19/2024 19:19:00 2.48 1.00-4.80 (K/ul) Final Monos, Abs 04/19/2024 19:19:00 0.87 0.00-1.10 (K/uL) Final Eos, Abs 04/19/2024 19:19:00 0.10 0.00-0.70 (K/uL) Final Basos, Abs 04/19/2024 19:19:00 0.01 0.00-0.20 (K/uL) Final Immature Granulocytes, Number 04/19/2024 19:19:00 0.03 0.00-0.20 (K/uL) Final Performing Location LABORATORY [facility] - [facility] [address] [place] [address]
--- OUTSIDE RECORDS SUMMARY | 2024-05-05 21:59 | External Medical Summary ---
Author Name UNSPECIFIED Address Unknown Organization [facility] History of Encounters Reason for Assessment: [facility] Inpatient Facility where the patient been admitted: No inpatient facility admission Discharge Disposition: Patient remained in the community (without formal assistive services) Functional Assessment When Dyspneic: With moderate exerti on (e.g., while dressing, using commode or bedpan, walking distances less than 20 feet) Bowel Incontinence Frequency: Very rarel y or never has bowel incontinence Cognitive and Behavioral and Psychiatric Symptoms: None Current Ability: Bathing: Able to bathe in shower or tub with the intermittent assistance of another person: (a) for intermittent supervision or encouragement or reminders, OR (b) to get in and out of the shower or tub, OR (c) for washing difficult to reach areas. Current Ability: Ambulation: Chairfast, unable to ambulate but is able to wheel self independently. Current: Management Of Oral Medications: Able to take medication(s) at the correct times if: (a) individual dosages are prepared in advance by another person; OR (b) another person develops a drug diary or chart Problems Surgical wound: Yes, patient has at least one (observable) surgical wound
--- OUTSIDE RECORDS SUMMARY | 2024-05-05 21:59 | External Medical Summary | Summary of Care ---
Author Name Unknown Organization [facility] Address [address] [place] [address] Phone [phone] Care Team Providers Care Shirt Turner Name Role Phone BolivarJulio fordn Robinson Primary Care Provider [phone] Encounter Details Date Type Department Care Team (Late st Contact Info) Description 02/24/2024 Orders Only Cardiology, [place] 400 [facility] [place], [place] [phone] Nel Rajan PA-C 400 [place] [address] Hypokalemia* Allergies No known active allergiesdocumented as of this encounter (statuses as of 02/24/2024) Medications Medication Sig Dispensed Refills Start Date [...] as of this encounter (statuses as of 02/24/2024) Active Problems Problem Noted Date Diagnosed Date Fall at home 12/19/2023 Leg edema 11/10/2023 PAD (peripheral artery disease) 11/10/2023 Elevated transaminase level 11/10/2023 Coronary artery disease invo lving [place] coronary artery of [place] heart without angina pectoris 11/10/2023 Abnormal nuclear [...] as of this encounter (statuses as of 02/24/2024) Resolved Problems Problem Noted Date Diagnosed Date Resolved Date Closed fracture of right femur 12/19/2023 12/26/2023 Closed fracture of right hip 12/19/2023 12/26/2023 Cardiac/pericardial tamponade 11/02/2022 11/05/2022 Hypoxemia 11/24/2018 11/27/2018 Cardiac arrest 11/24/2010 07/14/2011 Ventricular fibrillation 11/24/2010 Acute non Q wave myocardial infarction 11/24/2010 07/14/2011 HTN, goal below 130/80 11/24/201005/11 Overview: Per HTN Protocol #27. documented as of this encounter (statuses as of 02/24/2024) Immunizations Name Administration Dates Next Due Pneumococcal [...] [address] [place] [address] Yg Pickering PA-C [address] [facility] [place] [address] 04/04/2024 9:00 AM EDT Cardiac Studies Cardiology, [place] [address] [place] [address] [place] [facility] [address] [place] [address] 06/18/2024 9:30 AM EDT Office Visit [place] [address] [place] [address] Nel Rajan PA-C [address] [place] [address] Scheduled Orders Name Type Priority Associated Diagnoses Orde r Schedule BASIC METABOLIC PANEL Lab Routine Hypokalemia Expected: 03/02/2024, Expires: 02/23/2025 Health Maintenance Due Date Last Done Comments [...] this encounter Medical Devices Implanted Type Area Armed Security Officer Device Identifier Shelf Expiration Date Model / Serial / Lot Lens 21.0 [place] - [id number] - [id number] Implanted:Qty: 1 on 01/28/2023 by Christian Woo DO at OR [facility] Lens Right: Eye [employer] 10/12/2025 CNA0T0.210 / [id number] / [place] 6.5mm Partially Threaded (20mm) Screws, Non-Sterile 90mm Implanted:Qty: 2 on 12/21/2023 by Sulaiman Morales MD at OR [facility] Screw Right: Hip DENISE : ORTHOPAEDICS N/A [id number] / N/A / N/A Description:From sterile set on field. No LOT #, Expiration date or serial # present. WD# [id number] per CD Team [place] 6.5mm Partially Threaded (20mm) Screws, Non-Sterile 95mm Implanted:Qty: 1 on 12/21/2023 by Sulaiman Morales MD at OR [facility] Screw Right: Hip DENISE N/A [id number] / N/A / N/A Description:From sterile set on field. No LOT #, Expiration date or serial # present. # [id number] per CDM Team Lens 20.5 [place] - [id number] - [id number] Implanted:Qty: 1 on 01/04/2023 by Christian Woo DO at OR [facility] Left: Eye [employer] 07/15/2025 CNA0T0.205 / [id number] / documented as of this encounter Visit Diagnoses Diagnosis Hypokalemia- Primary Hypopotassemia documented in this encounter Advance Directives [...] the patient have Health Care Power of Water Plant Pump Operator? Yes, not currently available * Full Code [...] Discussed due to patient's condition Care Teams Shirt Turner Relationship Specialty Start Date End Date Isrrael Bolivar DO [address] [place], [place] [phone] PCP - General Family Medicine 11/24/10 documented as of this encounter
--- OUTSIDE RECORDS SUMMARY | 2024-05-05 21:59 | External Medical Summary | Summary of Care ---
Author Name Unknown Organization [facility] Address [address] [place] [address] Phone [phone] Care Team Providers Care Third Hand Name Role Phone BolivarIsrrael ford Primary Care Provider [phone] Encounter Details Date Type Department Care Team (Late st Contact Info) Description 04/06/2024 Result Scan Unspecified Department Arti Lipscomb DO [address] [place] [address] <No scans attached> Allergies No known active allergiesdocumented as of this encounter (statuses as of 04/06/2024) Medications Medication Sig Dispensed Refills Start Date [...] as of this encounter (statuses as of 04/06/2024) Active Problems Problem Noted Date Diagnosed Date Fall at home 12/19/2023 Leg edema 11/10/2023 PAD (peripheral artery disease) 11/10/2023 Elevated transaminase level 11/10/2023 Coronary artery disease invo lving [place] coronary artery of [place] heart without angina pectoris 11/10/2023 Abnormal nuclear [...] as of this encounter (statuses as of 04/06/2024) Resolved Problems Problem Noted Date Diagnosed Date Resolved Date Closed fracture of right femur 12/19/2023 12/26/2023 Closed fracture of right hip 12/19/2023 12/26/2023 Cardiac/pericardial tamponade 11/02/2022 11/05/2022 Hypoxemia 11/24/2018 11/27/2018 Cardiac arrest 11/24/2010 07/14/2011 Ventricular fibrillation 11/24/2010 Acute non Q wave myocardial infarction 11/24/2010 07/14/2011 HTN, goal below 130/80 11/24/201005/11 Overview: Per HTN Protocol #27. documented as of this encounter (statuses as of 04/06/2024) Immunizations Name Administration Dates Next Due Pneumococcal [...] Office Visit [place] [address] [place] [address] Nel Rajan PA-C [address] [place] [address] 04/04/2025 9:00 AM EDT Cardiac Studies [facility] [address] [place] [address] [facility] [address] [place] [address] Health Maintenance Due Date Last Done Comments [...] this encounter Medical Devices Implanted Type Area Welding Machine Operator Helper Gas Device Identifier Shelf Expiration Date Model / Serial / Lot Lens 21.0 [facility] - [id number] - [id number] Implanted:Qty: 1 on 01/28/2023 by Christian Woo DO at OR [facility] Lens Right: Eye [employer] 10/12/2025 CNA0T0.210 / [id number] / [place]ise 6.5mm Partially Threaded (20mm) Screws, Non-Sterile 90mm Implanted:Qty: 2 on 12/21/2023 by Sulaiman Morales MD at OR [facility] Screw Right: Hip DENISE : ORTHOPAEDICS N/A [id number] / N/A / N/A Description:From sterile set on field. No LOT #, Expiration date or serial # present. # [id number] per [facility] Team Denise 6.5mm Partially Threaded (20mm) Screws, Non-Sterile 95mm Implanted:Qty: 1 on 12/21/2023 by Sulaiman Morales MD at OR [facility] Screw Right: Hip DENISE N/A [id number] / N/A / N/A Description:From sterile set on field. No LOT #, Expiration date or serial # present. # [id number] per CDM Team Lens 20.5 [place] - [id number] - [id number] Implanted:Qty: 1 on 01/04/2023 by Christian Woo DO at OR [facility] Left: Eye [employer] 07/15/2025 CNA0T0.205 / [id number] / documented as of this encounter Procedures Procedure Name Priority Date/Time Associated Diagnosis Comments CARDIOLOGY SCANNED RESULT 04/06/2024 documented in this encounter Results * CARDIOLOGY SCANNED RESULT (04/06/2024) 04/06/2024 Rati Dawna Ruel COOPER OTHER documented in this encounter Advance Directives * [...] the patient have Health Care Power of Log Hooker? Yes, not currently available * Full Code [...] Discussed due to patient's condition Care Teams Third Hand Relationship Specialty Start Date End Date Isrrael Bolivar DO 16 [facility] [place] [address] PCP - General Family Medicine 11/24/10 documented as of this encounter
--- OUTSIDE RECORDS SUMMARY | 2024-05-05 21:59 | External Medical Summary ---
Author Name Unknown Address Unknown Organization K01:[facility]ORY [facility] [place] [address] [place] [address] Laboratory Report Ordering Provider Test Date Status HARLAN BEJARANO 02/23/2024 12:25:53 Final Observation Date Value Abnormality Reference (Units ) Status BUN 02/23/2024 12:25:53 17 6-20 (mg/dL) Final Creatinine 02/23/2024 12:25:53 1.1 Above high normal 0.5-1.0 (mg/dL) Final Glomerular filtration rate/1.73 sq M.predicted [Volume Rate/Area] in Serum, Plasma or Blood by Creatinine-based formula (CKD-EPI) 02/23/2024 12:25:53 49 Below low normal >=60 (mL/min) Final eGFR is calculated based on the CKD-EPI 2020 equation Sodium 02/23/2024 12:25:53 145 135-146 (m mol/L) Final Potassium 02/23/2024 12:25:53 3.6 3.5-5.1 (m mol/L) Final Cl 02/23/2024 12:25:53 103 98-107 (mm ol/L) Final CO2 02/23/2024 12:25:53 28 22-32 (mmo l/L) Final Anion gap 02/23/2024 12:25:53 14 7-15 (mmol /L) Final Glucose 02/23/2024 12:25:53 142 Above high normal 70 -120 (mg/dL) Final Calcium 02/23/2024 12:25:53 9.1 8.4-10.2 ( mg/dL) Final Performing Location [facility] [place] [address] [place] [address]
--- OUTSIDE RECORDS SUMMARY | 2024-05-05 21:59 | External Medical Summary | Summary of Care ---
Author Name Unknown Organization [facility] Address [address] [place] [address] Phone [phone] Care Team Providers Care Covered Button Maker Name Role Phone Isrrael Bolivar DO Primary Care Provider [phone] Reason for Visit * Reason Onset Date Comments Test Results 02/24/2024 LM 02/23 Encounter Details Date Type Department Care Team (Late st Contact Info) Description 02/24/2024 Telephone Cardiology, [place] 400 [facility] [place] [address] Nel Rajan PA-C 400 [place] [address] Test Results (LM 02/23) Allergies No known active allergiesdocumented as of [...] level 11/10/2023 Coronary artery disease invo lving [place] coronary artery of [place] heart without angina pectoris 11/10/2023 Abnormal nuclear [...] encounter Miscellaneous Notes * Telephone Encounter - Makeda Acevedo LPN - 02/28/2024 3:21 PM EDT Pts dtr notified via phone and states understanding. * Telephone Encounter - Karime Layton LPN - 02/24/2024 12:54 PM EDT No answer, I left a message for pt to return call. Please transfer to clinic when they call back. * Telephone Encounter - Karime Layton LPN - 02/24/2024 12:54 PM EDT ----- Message from Nel Rajan sent at 02/24/2024 7:40 AM EDT ----- Potassium has improved. Kidney function is slightly reduced but stable Recommend adequate hydration with 48-64oz fluid daily Repeat labs in 2 weeks documented in this encounter Plan of Treatment Upcoming Encounters Date Type Department Care Team (Late st Contact Info) Description 03/26/2024 9:15 AM EDT Office Visit Orthopaedics, [place] [address] [place] [place] [address] Yg Pickering PA-C [address] [place] [address] 04/04/2024 9:00 AM EDT Cardiac Studies Cardiology, [place] 400 [facility] [place] [address] [place] [facility] [address] [facility] [place] [address] 06/18/2024 9:30 AM EDT Office Visit Cardiology, [place] [address] [place] [address] Nel Rajan PA-C 400 [facility] [place] [address] Health Maintenance Due Date Last Done Comments [...] this encounter Medical Devices Implanted Type Area Document Review Attorney Device Identifier Shelf Expiration Date Model / Serial / Lot Lens 21.0 [place] - [id number] - [id number] Implanted:Qty: 1 on 01/28/2023 by Christian Woo DO at OR [facility] Lens Right: Eye [employer] 10/12/2025 CNA0T0.210 / [id number] / [place] 6.5mm Partially Threaded (20mm) Screws, Non-Sterile 90mm Implanted:Qty: 2 on 12/21/2023 by Sulaiman Morales MD at OR [facility] Screw Right: Hip DENISE : ORTHOPAEDICS N/A [id number] / N/A / N/A Description:From sterile set on field. No LOT #, Expiration date or serial # present. WD# [id number] per CDM Team [place] 6.5mm Partially Threaded (20mm) Screws, Non-Sterile 95mm Implanted:Qty: 1 on 12/21/2023 by Sulaiman Morales MD at OR [facility] Screw Right: Hip DENISE N/A [id number] / N/A / N/A Description:From sterile set on field. No LOT #, Expiration date or serial # present. WD# [id number] per CDM Team Lens 20.5 [place] - [id number] - [id number] Implanted:Qty: 1 on 01/04/2023 by Christian Woo DO at OR [facility] Left: Eye [employer] 07/15/2025 CNA0T0.205 / [id number] / documented as of this encounter [...] the patient have Health Care Power of Map Drafter? Yes, not currently available * Full Code [...] Discussed due to patient's condition Care Teams Covered Button Maker Relationship Specialty Start Date End Date Isrrael Bolivar DO [address] [place] [address] PCP - General Family Medicine 11/24/10 documented as of this encounter
--- OUTSIDE RECORDS SUMMARY | 2024-05-05 22:00 | External Medical Summary ---
Author Name Unknown Address Unknown Organization K1F:LABORATORY [address] [place] [address] Laboratory Report Ordering Provider Test Date Status GA NIXON 01/27/2024 17:56:00 Final Observation Date Value Abnormality Reference (Units ) Status WBC, Total 01/27/2024 17:56:00 6.49 4.00-10.80 (K/uL) Final RBC 01/27/2024 17:56:00 4.91 3.85-5.15 (M/uL) Final Hemoglobin 01/27/2024 17:56:00 12.4 12.0-15.3 (g/dL) Final HCT 01/27/2024 17:56:00 39.7 36.0-45.2 (%) Final MCV 01/27/2024 17:56:00 80.9 81.5-97.5 (fL) Final MCH 01/27/2024 17:56:00 25.3 27.0-34.0 (pg) Final MCHC 01/27/2024 17:56:00 31.2 32.0-36.0 (g/dL) Final RDW 01/27/2024 17:56:00 20.6 11.5-15.5 (%) Final Platelets 01/27/2024 17:56:00 157 140-400 (K/uL) Final MPV 01/27/2024 17:56:00 11.7 6.6-11.1 (fL) Final Nucleated erythrocytes/100 leukocytes [Ratio] in Blood by Automated count 01/27/2024 17:56:00 0 <=0 (/100 WBCs) Final Performing Location LABORATORY [facility] - [address] [place] [address]
--- OUTSIDE RECORDS SUMMARY | 2024-05-05 22:00 | External Medical Summary | Summary of Care ---
Author Name Unknown Organization [facility] Address [address] [place] [address] Phone [phone] Care Team Providers Care Account Representative Name Role Phone Isrrael Bolivar Primary Care Provider [phone] Encounter Details Date Type Department Care Team (Late st Contact Info) Description 01/31/2024 Result Scan Unspecified Department Arti Lipscomb DO [address] [place] [address] <No scans attached> Allergies No known active allergiesdocumented as of this encounter (statuses as of 01/31/2024) Medications Medication Sig Dispensed Refills Start Date [...] Tablet by mouth every evening. 0 Active ipratropium-albutero l (COMBIVENT RESPIMAT) 20-100 MCG/ACT Inhaler Inhale 1 Puff by mouth 4 times a day. 1 Inhaler 0 07/22/2018 Active Silver sulfADIAZINE 1 % External Cream Apply topically to affected area daily . Apply to BLE 0 Active Jardiance 25 MG Oral Tablet Take [...] 60 Blister Dosing Unit 0 03/31/2022 Active TRUEplus Lancets 33G 0 07/02/2022 Acti ve True Metrix Blood Glucose Test In Vitro Strip 0 08/30/2022 Active True Metrix Meter w/Device Kit 0 07/12/2022 Active Alendronate Sodium 70 MG Oral Tablet (Fosamax) Take 1 Tablet by mouth once a week. 0 08/14/2022 Active Apixaban 5 MG Oral Tablet (Eliquis)Indications :Persistent atrial fibrillation (HCC) TAKE 1 TABLET BY MOUTH 2 times daily 180 Tablet 3 08/15/2023 Active Triamcinolone Acetonide 0.1 % External Cream (Aristocort) Apply to lower legs twice daily as needed for dry skin 80 g 2 08/22/2023 Active Aspirin 81 MG Oral Tablet Chewable Take 1 Tablet by mouth in the morning. 0 09/05/2023 Active Colchicine 0.6 MG Oral Tablet Take 1 Tablet by mouth in the morning. 0 09/05/2023 Active Omeprazole 20 MG Oral Capsule Delayed Release (PriLOSEC) Take 1 Capsule by mouth in the morning. 0 09/05/2023 Active Metoprolol Succinate ER 25 MG Oral Tablet Extended Release 24 Hour (Toprol XL) Take 1 Tablet by mouth in the morning. 0 09/05/2023 Active Torsemide 20 MG Oral Tablet (Demadex)Indications :HTN, goal below 140/90,Dyslipidemia, goal LDL below 70,Permanent atrial fibrillation (HCC),Chronic diastolic congestive heart failure (HCC),ICD (implantable cardioverter-defibri llator), single, in situ Take 2 Tablets by mouth in the morning and 2 Tablets in the evening. 60 Tablet 0 11/12/2023 Active Ondansetron 4 MG Oral Tablet Disintegrating (Zofran) Place 1 Tablet on tongue every 6 hours as needed for Nausea. 20 Tablet 0 12/26/2023 Active oxyCODONE HCl 5 MG Oral Tablet (Oxy IR) Take 1 Tablet by mouth every 6 hours as needed for Pain, Severe. 5 Tablet 0 12/26/2023 Active traMADol HCl 25 MG Oral Tablet Take 25 mg by mouth every 6 hours as needed for Pain, Mild. 10 Tablet 0 12/26/2023 Active Senna-Docusate Sodium 8.6-50 MG Oral Tablet Take 1 Tablet by mouth in the morning. 30 Tablet 1 12/26/2023 Active Polyethylene Glycol 3350 17 GM Oral Packet (Miralax) Take 1 Packet by mouth 2 times a day as needed (constipation). 14 Each 0 12/26/2023 Active Pregabalin 100 MG Oral Capsule (Lyrica) Take 1 Capsule by mouth in the morning and 1 Capsule before bedtime. 60 Capsule 1 12/26/2023 Active documented as of this encounter (statuses as of 01/31/2024) Active Problems Problem Noted Date Diagnosed Date Fall at home 12/19/2023 Leg edema 11/10/2023 PAD (peripheral artery disease) 11/10/2023 Elevated transaminase level 11/10/2023 Coronary artery disease invo lving [place] coronary artery of [place] heart without angina pectoris 11/10/2023 Abnormal nuclear [...] as of this encounter (statuses as of 01/31/2024) Resolved Problems Problem Noted Date Diagnosed Date Resolved Date Closed fracture of right femur 12/19/2023 12/26/2023 Closed fracture of right hip 12/19/2023 12/26/2023 Cardiac/pericardial tamponade 11/02/2022 11/05/2022 Hypoxemia 11/24/2018 11/27/2018 Cardiac arrest 11/24/2010 07/14/2011 Ventricular fibrillation 11/24/2010 Acute non Q wave myocardial infarction 11/24/2010 07/14/2011 HTN, goal below 130/80 11/24/201005/11 Overview: Per HTN Protocol #27. documented as of this encounter (statuses as of 01/31/2024) Immunizations Name Administration Dates Next Due Pneumococcal [...] Care Team (Late st Contact Info) Description 02/16/2024 10:00 AM EDT Office Visit Cardiology, [place] [address] [place] [address] Nel Rajan PA-C [address] [place] [address] 02/20/2024 10:00 AM EDT Office Visit Orthopaedics [facility] [address] [place] [address] Yg Pickering PA-C [address] [place] [address] 04/04/2024 9:00 AM EDT Cardiac Studies Cardiology, [place] [address] [place] [address] [place] [address] [place] [address] Health Maintenance Due Date Last Done Comments [...] this encounter Medical Devices Implanted Type Area Irrigator Sprinkling System Device Identifier Shelf Expiration Date Model / Serial / Lot Lens 21.0 [employer] - [id number] - [id number] Implanted:Qty: 1 on 01/28/2023 by Christian Woo DO at OR [facility] Lens Right: Eye [employer] 10/12/2025 [id number] / [id number] / [place] 6.5mm Partially Threaded (20mm) Screws, Non-Sterile 90mm Implanted:Qty: 2 on 12/21/2023 by Sulaiman Morales MD at OR [facility] Screw Right: Hip DENISE : ORTHOPAEDICS N/A [id number] / N/A / N/A Description:From sterile set on field. No LOT #, Expiration date or serial # present. WD# [id number] per CDM Team [place] 6.5mm Partially Threaded (20mm) Screws, Non-Sterile 95mm Implanted:Qty: 1 on 12/21/2023 by Sulaiman Morales MD at OR [facility] Screw Right: Hip DENISE N/A [id number] / N/A / N/A Description:From sterile set on field. No LOT #, Expiration date or serial # present. WD# [id number] per CDM Team Lens 20.5 [place] - [id number] - [id number] Implanted:Qty: 1 on 01/04/2023 by Christian Woo DO at OR [facility] Left: Eye [employer] 07/15/2025 [id number] / [id number] / documented as of this encounter Procedures Procedure Name Priority Date/Time Associated Diagnosis Comments CARDIOLOGY SCANNED RESULT 01/31/2024 documented in this encounter Results * CARDIOLOGY SCANNED RESULT (01/31/2024) 01/31/2024 Arti Lipscomb DO OTHER documented in this encounter Advance Directives Latest Code Status on File Code Status Date Activated Date Inactivated Comments Full Code 12/21/2023 10:03 AM 12/26/2023 4:34 PM This o rder reflects the patients wishes and were consensually agreed upon. Question Answer Comments Discussion of Advance Directives occurred with: Not Discussed due to patient's condition Code Status History Code Status Date Activated Date Inactivated Comments Full Code 12/19/2023 1:54 PM 12/21/2023 10:03 AM This o rder reflects the patients wishes and were consensually agreed upon. Question Answer Comments Discussion of Advance Directives occurred with: Patient Full Code 11/10/2023 3:07 AM 11/12/2023 5:00 PM This order reflects the patients wishes and were consensually agreed upon. Question Answer Comments Discussion of Advance Directives occurred with: Patient Does the patient have a Living Will? Yes, not currently available Does the patient have Health Care Power of [employer]? Yes, not currently available Full Code 01/28/2023 8:51 AM 01/28/2023 4:34 PM Question Answer Comments Discussion of Advance Directives occurred with: Not Discussed due to patient's condition Full Code 12/24/2022 1:55 AM 12/24/2022 8:25 PM This or jorge alberto reflects the patients wishes and were consensually agreed upon. Question Answer Comments Discussion of Advance Directives occurred with: Not Discussed due to patient's condition Care Teams Account Representative Relationship Specialty Start Date End Date Isrrael Bolivar DO [address] [place], [place] [id number] PCP - General Family Medicine 11/24/10 documented as of this encounter
--- OUTSIDE RECORDS SUMMARY | 2024-05-05 22:00 | External Medical Summary ---
Author Name Unknown Address Unknown Organization K1F:LABORATORY [facility] - [address] [facility] [place] [address] Laboratory Report Ordering Provider Test Date Status MANSOOR PARRA 01/05/2024 13:00:00 Final Observation Date Value Abnormality Reference (Units ) Status Adenovirus DNA [Presence] in Nasopharynx by QUEENIE with non-probe detection 01/05/2024 13:00:00 Negative Negative Final Human coronavirus 229E RNA [Presence] in Nasopharynx by QUEENIE with non-probe detection 01/05/2024 13:00:00 Negative Negative Final Human coronavirus HKU1 RNA [Presence] in Nasopharynx by QUEENIE with non-probe detection 01/05/2024 13:00:00 Positive Abnormal Negative Final Coronavirus HKU1 detected by PCR (amplified probe). Human coronavirus NL63 RNA [ Presence] in Nasopharynx by QUEENIE with non-probe detection 01/05/2024 13:00:00 Negative Negative Final Human coronavirus OC43 RNA [ Presence] in Nasopharynx by QUEENIE with non-probe detection 01/05/2024 13:00:00 Negative Negative Final SARS-CoV-2 (COVID-19) RNA [P resence] in Nasopharynx by QUEENIE with non-probe detection 01/05/2024 13:00:00 Negative Negative Final Human metapneumovirus RNA [P resence] in Nasopharynx by QUEENIE with non-probe detection 01/05/2024 13:00:00 Negative Negative Final Rhinovirus+Enterovirus RNA [ Presence] in Nasopharynx by QUEENIE with non-probe detection 01/05/2024 13:00:00 Negative Negative Final Influenza virus A RNA [Prese nce] in Nasopharynx by QUEENIE with non-probe detection 01/05/2024 13:00:00 Negative Negative Final Influenza virus B RNA [Prese nce] in Nasopharynx by QUEENIE with non-probe detection 01/05/2024 13:00:00 Negative Negative Final Parainfluenza virus 1 RNA [P resence] in Nasopharynx by QUEENIE with non-probe detection 01/05/2024 13:00:00 Negative Negative Final Parainfluenza virus 2 RNA [P resence] in Nasopharynx by QUEENIE with non-probe detection 01/05/2024 13:00:00 Negative Negative Final Parainfluenza virus 3 RNA [P resence] in Nasopharynx by QUEENIE with non-probe detection 01/05/2024 13:00:00 Negative Negative Final Parainfluenza virus 4 RNA [P resence] in Nasopharynx by QUEENIE with non-probe detection 01/05/2024 13:00:00 Negative Negative Final Respiratory syncytial virus RNA [Presence] in Nasopharynx by QUEENIE with non-probe detection 01/05/2024 13:00:00 Negative Negative F inal Bordetella pertussis.pertuss is toxin promoter region [Presence] in Nasopharynx by QUEENIE with non-probe detection 01/05/2024 13:00:00 Negative Negative Final Chlamydophila pneumoniae DNA [Presence] in Nasopharynx by QUEENIE with non-probe detection 01/05/2024 13:00:00 Negative Negative Final Mycoplasma pneumoniae DNA [P resence] in Nasopharynx by QUEENIE with non-probe detection 01/05/2024 13:00:00 Negative Negative Final Bordetella parapertussis IS1 001 DNA [Presence] in Nasopharynx by QUEENIE with non-probe detection 01/05/2024 13:00:00 Negative Negative F inal
The primers that detect Rhinovirus may cross react with some Enterorviruses. The validation of bronchial specimens, tracheal aspirates, and throats for this assay was developed and performance characteristics determined by [employer]. The validation of alternate specimen types has not been cleared or approved by the U.S. Food and Drug Administration (FDA). It has been determined that such clearance or approval is not necessary. [facility] - [address] [place] [address] [place] [address]
--- OUTSIDE RECORDS SUMMARY | 2024-05-05 22:00 | External Medical Summary ---
Author Name UNSPECIFIED Address Unknown Organization [facility] History of Encounters Reason for Assessment: Start of care - f urther visits planned Inpatient discharge facility: Past 14 Da ys: Discharged from Residential Facility Most Recent Inpatient Discharge Date: Functional Assessment Patient Living Situation: Patient lives with other person(s) in the home: Around the clock When Dyspneic: With moderate exerti on (e.g., while dressing, using commode or bedpan, walking distances less than 20 feet) Urinary Incontinence or Urin murphy Catheter Present: Patient is incontinent Bowel Incontinence Frequency: Very rarel y or never has bowel incontinence Cognitive and Behavioral and Psychiatric Symptoms: None Current Ability: Bathing: Unable to use the shower or tub, but able to participate in bathing self in bed, at the sink, in bedside chair, or on commode, with the assistance or supervision of another person throughout the bath. Current Ability: Ambulation: Chairfast, unable to ambulate but is able to wheel self independently. 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
--- OUTSIDE RECORDS SUMMARY | 2024-05-05 22:00 | External Medical Summary ---
Author Name Unknown Address Unknown Organization K1F:LABORATORY [facility] - [address] [place] [address] Laboratory Report Ordering Provider Test Date Status MANSOOR PARRA 01/03/2024 05:34:32 Final Observation Date Value Abnormality Reference (Units ) Status WBC, Total 01/03/2024 05:34:32 6.83 4.00-10.80 (K/uL) Final RBC 01/03/2024 05:34:32 3.94 3.85-5.15 (M/uL) Final Hemoglobin 01/03/2024 05:34:32 9.9 Below low normal 12.0-15.3 (g/dL) Final HCT 01/03/2024 05:34:32 32.2 Below low normal 36.0-45.2 (%) Final MCV 01/03/2024 05:34:32 81.7 81.5-97.5 (fL) Final MCH 01/03/2024 05:34:32 25.1 27.0-34.0 (pg) Final MCHC 01/03/2024 05:34:32 30.7 32.0-36.0 (g/dL) Final RDW 01/03/2024 05:34:32 23.5 11.5-15.5 (%) Final Platelets 01/03/2024 05:34:32 294 140-400 (K/uL) Final MPV 01/03/2024 05:34:32 11.1 6.6-11.1 (fL) Final Nucleated erythrocytes/100 leukocytes [Ratio] in Blood by Automated count 01/03/2024 05:34:32 0 <=0 (/100 WBCs) Final Performing Location [facility] [address] [facility] [place] [address]
--- OUTSIDE RECORDS SUMMARY | 2024-05-05 22:00 | External Medical Summary ---
Author Name Unknown Address Unknown Organization K1F:LABORATORY [facility] - [address] [place] [address] Laboratory Report Ordering Provider Test Date Status GA NIXON 01/27/2024 18:42:00 Final Observation Date Value Abnormality Reference (Units ) Status Troponin T 01/27/2024 18:42:00 18 Above high normal < =14 (ng/L) Final Performing Location LABORATORY [facility] - [address] [address]
--- OUTSIDE RECORDS SUMMARY | 2024-05-05 22:00 | External Medical Summary ---
Author Name Unknown Address Unknown Organization K1F:LABORATORY [facility] - [address] [place] [address] Ave[address] [place] [address] Laboratory Report Ordering Provider Test Date Status GA NIXON 01/27/2024 17:57:00 Final Rheumatoid factor at a level above 50 IU/mL may lead to an overestimation of the D-dimer level. A normal D-dimer result (<0.50 ug/mL FEU) has a negative predictive value of approximately 95% for the exclusion of acute pulmonary embolism (PE) or deep vein thrombosis when there is low or moderate pretest PE probability. Increased D-dimer values are abnormal but do not indicate a specific disease state and the D-dimer increase does not definitively correlate with clinical severity of disease. Observation Date Value Abnormality Reference (Units ) Status Fibrin D-dimer FEU [Mass/volume] in Platelet poor plasma by Immunoassay 01/27/2024 17:57:00 0.47 <0.50 (ug/mL FEU) Final Performing Location LABORATORY [facility] - [address] [facility] [place] [address]
--- OUTSIDE RECORDS SUMMARY | 2024-05-05 22:00 | External Medical Summary ---
Author Name Unknown Address Unknown Organization K01:[facility]ORY [facility] [address] [facility] [address] [place] [address] Laboratory Report Ordering Provider Test Date Status HARLAN BEJARANO 02/16/2024 10:45:29 Final Observation Date Value Abnormality Reference (Units ) Status BUN 02/16/2024 10:45:29 21 Above high normal 6-20 (mg/dL) Final Creatinine 02/16/2024 10:45:29 0.9 0.5-1.0 (mg/dL) Final Glomerular filtration rate/1.73 sq M.predicted [Volume Rate/Area] in Serum, Plasma or Blood by Creatinine-based formula (CKD-EPI) 02/16/2024 10:45:29 59 Below low normal >=60 (mL/min) Final eGFR is calculated based on the CKD-EPI 2020 equation Sodium 02/16/2024 10:45:29 144 135-146 (m mol/L) Final Potassium 02/16/2024 10:45:29 3.4 Below low normal 3.5 -5.1 (mmol/L) Final Cl 02/16/2024 10:45:29 101 98-107 (mm ol/L) Final CO2 02/16/2024 10:45:29 30 22-32 (mmo l/L) Final Anion gap 02/16/2024 10:45:29 13 7-15 (mmol /L) Final Glucose 02/16/2024 10:45:29 161 Above high normal 70 -120 (mg/dL) Final Calcium 02/16/2024 10:45:29 9.7 8.4-10.2 ( mg/dL) Final Performing Location [facility] [address] [place] [address]
--- OUTSIDE RECORDS SUMMARY | 2024-05-05 22:00 | External Medical Summary | Summary of Care ---
Author Name Unknown Organization [facility] Address [address] [place] [address] Phone [phone] Care Team Providers Care News Editor Name Role Phone Isrrael Bolivar Primary Care Provider [phone] Reason for Visit * Reason Comments Outpatient Testing Encounter Details Date Type Department Care Team (Late st Contact Info) Description 02/16/2024 10:50 AM EDT Laboratory Laboratory, [facility] [address] [place] [phone] [facility], Lab [address] [place] [address] Chronic heart failure with preserved ejection fraction (HFpEF) (HCC) Allergies No known active allergiesdocumented as of this encounter (statuses as of 02/16/2024) Medications Medication Sig Dispensed Refills Start Date [...] and 3 mL before bedtime. 02/02/2024 Active documented as of this encounter (statuses as of 02/16/2024) Active Problems Problem Noted Date Diagnosed Date Fall at home 12/19/2023 Leg edema 11/10/2023 PAD (peripheral artery disease) 11/10/2023 Elevated transaminase level 11/10/2023 Coronary artery disease invo lving [place] coronary artery of [place] heart without angina pectoris 11/10/2023 Abnormal nuclear [...] as of this encounter (statuses as of 02/16/2024) Resolved Problems Problem Noted Date Diagnosed Date Resolved Date Closed fracture of right femur 12/19/2023 12/26/2023 Closed fracture of right hip 12/19/2023 12/26/2023 Cardiac/pericardial tamponade 11/02/2022 11/05/2022 Hypoxemia 11/24/2018 11/27/2018 Cardiac arrest 11/24/2010 07/14/2011 Ventricular fibrillation 11/24/2010 Acute non Q wave myocardial infarction 11/24/2010 07/14/2011 HTN, goal below 130/80 11/24/201005/11 Overview: Per HTN Protocol #27. documented as of this encounter (statuses as of 02/16/2024) Immunizations Name Administration Dates Next Due Pneumococcal [...] 02/20/2024 10:00 AM EDT Office Visit Orthopaedics [facility] [address] [place] [address] Yg Pickering PA-C [address] [place] [address] 04/04/2024 9:00 AM EDT Cardiac Studies Cardiology, [place] [address] [place] [address] [facility] [address] [place] [address] 06/18/2024 9:30 AM EDT Office Visit [place] [address] [place] [address] Nel Rajan PA-C [address] [place] [address] Pending Results Name Type Priority Associated Diagnoses Date /Time BASIC METABOLIC PANEL Lab Routine Chronic heart failure with preserved ejection fraction (HFpEF) ([facility]) 02/16/2024 10:45 AM EDT Health Maintenance Due Date Last Done Comments Depression Screening 1947 Diabetic Foot Exam 1955 DTaP,Tdap,and Td Vaccines (1 - Tdap) 01/22/1956 Zoster Vaccines (1 of 2) 1987 Albumin/Creatinine Ratio 12/03/2015 12/02/2014 *SPIROMETRY ONCE FOR ASTHMA-ADULT 11/07/2016 COVID-19 Vaccine ( season) 2023 Diabetic Eye Exam 09/07/2023 09/07/2022, [...] this encounter Medical Devices Implanted Type Area Stone Banker Device Identifier Shelf Expiration Date Model / Serial / Lot Lens 21.0 [facility] - [id number] - [id number] Implanted:Qty: 1 on 01/28/2023 by Christian Woo DO at OR [facility] Lens Right: Eye [employer] 10/12/2025 CNA0T0.210 / [id number] / Denise 6.5mm Partially Threaded (20mm) Screws, Non-Sterile 90mm Implanted:Qty: 2 on 12/21/2023 by Sulaiman Morales MD at OR [facility] Screw Right: Hip DENISE : ORTHOPAEDICS N/A [id number] / N/A / N/A Description:From sterile set on field. No LOT #, Expiration date or serial # present. # [id number] per CDM Team Denise 6.5mm Partially Threaded (20mm) Screws, Non-Sterile 95mm Implanted:Qty: 1 on 12/21/2023 by Sulaiman Morales MD at OR [facility] Screw Right: Hip DENISE N/A [id number] / N/A / N/A Description:From sterile set on field. No LOT #, Expiration date or serial # present. # [id number] per CDM Team Lens 20.5 [employer]ondaon - [id number] - [id number] Implanted:Qty: 1 on 01/04/2023 by Christian Woo DO at OR [facility] Left: Eye [employer] 07/15/2025 CNA0T0.205 / [id number] / documented as of this encounter Visit Diagnoses Diagnosis Chronic heart failure with preserved ejection fraction (HFpEF) (HCC) documented in this encounter Advance Directives * [...] the patient have Health Care Power of Seam Stay Stitcher? Yes, not currently available * Full Code [...] Discussed due to patient's condition Care Teams News Editor Relationship Specialty Start Date End Date Isrrael Bolivar DO [address] [place], [place] [address] [address] PCP - General Family Medicine 11/24/10 documented as of this encounter
--- OUTSIDE RECORDS SUMMARY | 2024-05-05 22:00 | External Medical Summary ---
Author Name Unknown Address Unknown Organization K1F:LABORATORY [facility] - [address] [facility] [place] [address] Laboratory Report Ordering Provider Test Date Status GA NIXON 01/27/2024 17:56:00 Final Observation Date Value Abnormality Reference (Units ) Status SYNC LEUKOCYTES IN BLOOD BY AUTOMATED COUNT 01/27/2024 17:56:00 6.49 4.00-10.80 (K/uL) Final Segs 01/27/2024 17:56:00 67.0 40.0-75.0 (%) Final Lymphs % 01/27/2024 17:56:00 21.3 18.0-42.0 (%) Final Monos 01/27/2024 17:56:00 8.5 1.0-11.0 (%) Final Eosinophils 01/27/2024 17:56:00 2.8 0.0-6.0 (%) Final Basos 01/27/2024 17:56:00 0.2 0.0-2.0 (%) Final Immature Granulocyte, Percent 01/27/2024 17:56:00 0.2 0.0-2.0 (%) Final Absolute Segs 01/27/2024 17:56:00 4.36 1.80-7.70 (K/uL) Final Lymphs, absolute 01/27/2024 17:56:00 1.38 1.00-4.80 (K/ul) Final Monos, Abs 01/27/2024 17:56:00 0.55 0.00-1.10 (K/uL) Final Eos, Abs 01/27/2024 17:56:00 0.18 0.00-0.70 (K/uL) Final Basos, Abs 01/27/2024 17:56:00 0.01 0.00-0.20 (K/uL) Final Immature Granulocytes, Number 01/27/2024 17:56:00 0.01 0.00-0.20 (K/uL) Final Performing Location LABORATORY [facility] - [address] [place], [place] [address] [address] [place] [address]
--- OUTSIDE RECORDS SUMMARY | 2024-05-05 22:00 | External Medical Summary ---
Author Name UNSPECIFIED Address Unknown Organization [facility] History of Encounters Reason for Assessment: Start of care - f urther visits planned Inpatient discharge facility: Past 14 Da ys: [facility]charged from [facility] Most Recent Inpatient Discharge Date: Functional [...]
--- OUTSIDE RECORDS SUMMARY | 2024-05-05 22:00 | External Medical Summary | Summary of Care ---
Author Name Unknown Organization [facility] Address [address] [place] [address] Phone [phone] Care Team Providers Care Bolt Sorter Name Role Phone Isrrael Bolivar DO Primary Care Provider [phone] Reason for Visit * Reason Onset Date Comments Test Results 02/17/2024 Labs Encounter Details Date Type Department Care Team (Late st Contact Info) Description 02/17/2024 Telephone Cardiology, [place] [address] [place] [address] Nel Rajan PA-C [address] [place] [address] Test Results (Labs/) Allergies No known active allergiesdocumented as of this encounter (statuses as of 02/17/2024) Medications Medication Sig Dispensed Refills Start Date [...] as of this encounter (statuses as of 02/17/2024) Active Problems Problem Noted Date Diagnosed Date [...] as of this encounter (statuses as of 02/17/2024) Resolved Problems Problem Noted Date Diagnosed Date Resolved Date Closed fracture of right femur 12/19/2023 12/26/2023 Closed fracture of right hip 12/19/2023 12/26/2023 Cardiac/pericardial tamponade 11/02/2022 11/05/2022 Hypoxemia 11/24/2018 11/27/2018 Cardiac arrest 11/24/2010 07/14/2011 Ventricular fibrillation 11/24/2010 Acute non Q wave myocardial infarction 11/24/2010 07/14/2011 HTN, goal below 130/80 11/24/201005/11 Overview: Per HTN Protocol #27. documented as of this encounter (statuses as of 02/17/2024) Immunizations Name Administration Dates Next Due Pneumococcal [...] encounter Miscellaneous Notes * Telephone Encounter - Jami Glover NRCMA - 02/17/2024 1:30 PM EDT DaughterPina, given message. DAVID Thomas * Telephone Encounter - Jami Glover NRCMA - 02/17/2024 1:28 PM EDT ----- Message from Nel Rajan sent at 02/17/2024 7:41 AM EDT ----- Kidney function stable Potassium remains low Recommend taking potassium 30meq BID today Repeat labs in 1 week documented in this encounter Plan of Treatment Upcoming Encounters Date Type Department Care Team (Late st Contact Info) Description 02/20/2024 10:00 AM EDT Office Visit Orthopaedics [facility] [address] [address] Yg Pickering PA-C [address] [place] [address] 04/04/2024 9:00 AM EDT Cardiac Studies [address]iology, [place] [place] [address] [facility] [address] [place] [address] 06/18/2024 9:30 AM EDT Office Visit Cardiology, [place] [address] [place] [address] Nel Rajan PA-C [address] [place] [address] Health Maintenance Due Date Last Done Comments [...] this encounter Medical Devices Implanted Type Area Marketing Finance Specialist Device Identifier Shelf Expiration Date Model / Serial / Lot Lens 21.0 Jerome - [id number] - [id number] Implanted:Qty: 1 on 01/28/2023 by Christian Woo DO at OR [facility] Lens Right: Eye [employer] 10/12/2025 CNA0T0.210 / [id number] / Denise 6.5mm Partially Threaded (20mm) Screws, Non-Sterile 90mm Implanted:Qty: 2 on 12/21/2023 by Sulaiman Morales MD at OR [facility] Screw Right: Hip DENISE : ORTHOPAEDICS N/A [id number] / N/A / N/A Description:From sterile set on field. No LOT #, Expiration date or serial # present. WD# [id number] per CDM Team [place] 6.5mm Partially Threaded (20mm) Screws, Non-Sterile 95mm Implanted:Qty: 1 on 12/21/2023 by Sulaiman Morales MD at OR [facility] Screw Right: Hip DENISE N/A [id number] / N/A / N/A Description:From sterile set on field. No LOT #, Expiration date or serial # present. # [id number] per CDM Team Lens 20.5 [facility] - [id number] - [id number] Implanted:Qty: 1 on 01/04/2023 by Christian Woo DO at OR [facility] Left: Eye [employer] 07/15/2025 CNA0T0.205 / [id number] / documented as of this encounter [...] the patient have Health Care Power of Herbologist? Yes, not currently available * Full Code [...] Discussed due to patient's condition Care Teams Bolt Sorter Relationship Specialty Start Date End Date Isrrael Bolivar DO [address] [place] [address] PCP - General Family Medicine 11/24/10 documented as of this encounter
--- OUTSIDE RECORDS SUMMARY | 2024-05-05 22:00 | External Medical Summary ---
Author Name Unknown Address Unknown Organization K1F:LABORATORY [facility] - [address] [place] [address] Laboratory Report Ordering Provider Test Date Status GA NIXON 01/27/2024 17:57:00 Final Warfarin Therapy
INR: 2 .0-3.0 conventional anticoagulation
INR: 2.5- 3.5 high intensity anticoagulation Observation Date Value Abnormality Reference (Units ) Status PT 01/27/2024 17:57:00 19.4 Above high normal 11 .6-15.2 (seconds) Final INR 01/27/2024 17:57:00 1.6 Above high normal 0. 8-1.2 Final Performing Location LABORATORY [facility] - [address] [place] [address]
--- OUTSIDE RECORDS SUMMARY | 2024-05-05 22:00 | External Medical Summary ---
Author Name Unknown Address Unknown Organization K1F:LABORATORY [facility] - [address] [place] [address] Laboratory Report Ordering Provider Test Date Status GA NIXON 01/27/2024 17:56:00 Final Exclude Heart Failure: <300 pg/mL
Diagnose Heart Failure:
Age <50 yr: >450 pg/mL
50-75 yr: >900 pg/mL
>75 yr: >1800 pg/mL
GFR is 30-59 mL/min: >1200 pg/mL or Age- adjusted values
GFR <30 mL/min: do not use, not reliable

Prognostic threshold: 1000 pg/mL Observation Date Value Abnormality Reference (Units ) Status BNP, Pro-hormone 01/27/2024 17:56:00 1401 Above high no rmal <300 (pg/mL) Final Performing Location LAB[facility] - [address] [place] [address]
--- OUTSIDE RECORDS SUMMARY | 2024-05-05 22:00 | External Medical Summary ---
Author Name Unknown Address Unknown Organization K1F:LAB[facility]ATORY [facility] - [address] [facility] [place] [address] Laboratory Report Ordering Provider Test Date Status MANSOOR PARRA 01/03/2024 05:34:32 Final Observation Date Value Abnormality Reference (Units ) Status BUN 01/03/2024 05:34:32 19 6-20 (mg/dL) Final Creatinine 01/03/2024 05:34:32 0.8 0.5-1.0 (mg/dL) Final Glomerular filtration rate/1.73 sq M.predicted [Volume Rate/Area] in Serum, Plasma or Blood by Creatinine-based formula (CKD-EPI) 01/03/2024 05:34:32 72 >=60 (mL/min) Final eGFR is calculated based on the CKD-EPI 2020 equation Sodium 01/03/2024 05:34:32 144 135-146 (m mol/L) Final Potassium 01/03/2024 05:34:32 3.9 3.5-5.1 (m mol/L) Final Cl 01/03/2024 05:34:32 103 98-107 (mm ol/L) Final CO2 01/03/2024 05:34:32 30 22-32 (mmo l/L) Final Anion gap 01/03/2024 05:34:32 11 7-15 (mmol /L) Final Glucose 01/03/2024 05:34:32 158 Above high normal 70 -120 (mg/dL) Final Albumin 01/03/2024 05:34:32 3.5 Below low normal 3.8 -5.0 (g/dL) Final AST (Aspartate aminotransferase) 01/03/2024 05:34:32 13 10-35 (U/L) Fin al Alk Phos 01/03/2024 05:34:32 110 35-130 (U/ L) Final Bilirubin, Total 01/03/2024 05:34:32 0.9 <=1 .2 (mg/dL) Final Calcium 01/03/2024 05:34:32 8.8 8.4-10.2 ( mg/dL) Final Protein 01/03/2024 05:34:32 5.2 Below low normal 6.0 -8.3 (g/dL) Final ALT (Alanine aminotransferase) 01/03/2024 05:34:32 15 10-35 (U/L) Kishan gao Performing Location LABORATORY [facility] - [facility] [address] [place] [address]
--- OUTSIDE RECORDS SUMMARY | 2024-05-05 22:00 | External Medical Summary | Summary of Care ---
Author Name Unknown Organization [facility] Address [address] [place] [address] Phone [phone] Care Team Providers Care Digital Librarian Name Role Phone BolivarJulio fordn Robinson Primary Care Provider [phone] Encounter Details Date Type Department Care Team (Late st Contact Info) Description [facility]/17[facility] [address] [facility] [place], [place] [id number] Nel Rajan PA-C [address] [place] [address] Hypokalemia* Allergies No known active allergiesdocumented [...] level 11/10/2023 Coronary artery disease invo lving [place] coronary artery of [place] heart without angina pectoris 11/10/2023 Abnormal nuclear [...] [facility] [address] [place] [address] Yg Pickering PA-C [address] [place] [address] 04/04/2024 9:00 AM EDT Cardiac Studies Cardiology, [place] [address] [place] [address] [facility] [address] [place] [address] 06/18/2024 9:30 AM EDT Office Visit [facility] [address] [address] Nel Rajan PA-C [address] [place] [place] [address] Scheduled Orders Name Type Priority Associated Diagnoses Orde r Schedule BASIC METABOLIC PANEL Lab Routine Hypokalemia Expected: 02/17/2024, Expires: 02/16/2025 Health Maintenance Due Date Last Done Comments [...] this encounter Medical Devices Implanted Type Area Gold Nib Grinder Device Identifier Shelf Expiration Date Model / Serial / Lot Lens 21.0 [facility] - [id number] - [id number] Implanted:Qty: 1 on 01/28/2023 by Christian Woo DO at OR [facility] Lens Right: Eye [employer] 10/12/2025 CNA0T0.210 / [id number] / [place] 6.5mm Partially Threaded (20mm) Screws, Non-Sterile 90mm Implanted:Qty: 2 on 12/21/2023 by Sulaiman Morales MD at OR [facility] Screw Right: Hip DENISE : ORTHOPAEDICS N/A [id number] / N/A / N/A Description:From sterile set on field. No LOT #, Expiration date or serial # present. WD# [id number] per [facility] Team Denise 6.5mm Partially Threaded (20mm) Screws, Non-Sterile 95mm Implanted:Qty: 1 on 12/21/2023 by Sulaiman Morales MD at OR [facility] Screw Right: Hip DENISE N/A [id number] / N/A / N/A Description:From sterile set on field. No LOT #, Expiration date or serial # present. # [id number] per CDM Team Lens 20.5 [place] - [id number] - [id number] Implanted:Qty: 1 on 01/04/2023 by Christian Woo DO at OR [facility] Left: Eye [employer] 07/15/2025 CNA0T0.205 / [id number] / documented as of this encounter [...] the patient have Health Care Power of Machine Spreader? Yes, not currently available * Full Code [...] Discussed due to patient's condition Care Teams Digital Librarian Relationship Specialty Start Date End Date Isrrael Bolivar DO [address] [place] [address] PCP - General Family Medicine 11/24/10 documented as of this encounter
--- OUTSIDE RECORDS SUMMARY | 2024-05-05 22:00 | External Medical Summary ---
Author Name Unknown Address Unknown Organization K1F:[facility] - [address] [facility] [place] [address] Laboratory Report Ordering Provider Test Date Status GA NIXON 01/27/2024 17:56:00 Final Observation Date Value Abnormality Reference (Units ) Status BUN 01/27/2024 17:56:00 19 6-20 (mg/dL) Final Creatinine 01/27/2024 17:56:00 0.8 0.5-1.0 (mg/dL) Final Glomerular filtration rate/1.73 sq M.predicted [Volume Rate/Area] in Serum, Plasma or Blood by Creatinine-based formula (CKD-EPI) 01/27/2024 17:56:00 67 >=60 (mL/min) Final eGFR is calculated based on the CKD-EPI 2020 equation Sodium 01/27/2024 17:56:00 141 135-146 (m mol/L) Final Potassium 01/27/2024 17:56:00 3.2 Below low normal 3.5 -5.1 (mmol/L) Final Cl 01/27/2024 17:56:00 103 98-107 (mm ol/L) Final CO2 01/27/2024 17:56:00 26 22-32 (mmo l/L) Final Anion gap 01/27/2024 17:56:00 12 7-15 (mmol /L) Final Glucose 01/27/2024 17:56:00 168 Above high normal 70 -120 (mg/dL) Final Albumin 01/27/2024 17:56:00 3.9 3.8-5.0 (g /dL) Final AST (Aspartate aminotransferase) 01/27/2024 17:56:00 19 10-35 (U/L) Fin al Alk Phos 01/27/2024 17:56:00 104 35-130 (U/ L) Final Bilirubin, Total 01/27/2024 17:56:00 0.6 <=1 .2 (mg/dL) Final Calcium 01/27/2024 17:56:00 9.7 8.4-10.2 ( mg/dL) Final Protein 01/27/2024 17:56:00 5.9 Below low normal 6.0 -8.3 (g/dL) Final ALT (Alanine aminotransferase) 01/27/2024 17:56:00 9 Below low normal 10-35 (U/L) Final Performing Location LAB[facility]ATORY [facility] - [facility] [place] [address]
--- OUTSIDE RECORDS SUMMARY | 2024-05-05 22:00 | External Medical Summary | Summary of Care ---
Author Name Unknown Organization [facility] Address [address] [place] [address] Phone [phone] Care Team Providers Care Directional Bore Operator Name Role Phone Isrrael Bolivar Primary Care Provider [phone] Reason for Visit * Reason Comments Follow Up Rm # 3 Encounter Details Date Type Department Care Team (Late st Contact Info) Description 02/16/2024 10:00 AM EDT Office Visit Cardiology, [place] [address] [facility] [place] [id number] Nel Rajan PA-C [address] [place] [address] Non-occlusive coronary artery disease*; Chronic coronary artery disease; Chronic heart failure with preserved ejection fraction (HFpEF) (HCC); Permanent atrial fibrillation (HCC); Essential hypertension with goal blood pressure less than 130/80; Dyslipidemia, goal LDL below 70; ICD (implantable cardioverter-defibril lator), single, in situ; Hypokalemia Allergies No known active allergiesdocumented as of this encounter (statuses as of 02/16/2024) Medications Medication Sig Dispensed Refills Start Date End Date Status NITROGLYCERIN 0.4 MG SL SUBLIndications:Hyp opotassemia,Cardiac arrest (HCC),INTERFACED RESULT,Respiratory failure, acute (HCC),Ventricular fibrillation (HCC),Acute non Q wave myocardial infarction (HCC),Dyslipidemia, goal LDL below 100,HTN, goal below 130/80,DM type 2, not at goal (HCC),Asthma, mild persistent,Electrol yte and fluid disorder 1 Tab Sublingual Every 5 minutes as needed for chest pain 30 Tab 3 12/08/2010 Active atorvaSTATin (LIPITOR) 40 MG Tablet Take 1 Tablet by mouth every evening. Active ipratropium-albuter ol (COMBIVENT RESPIMAT) 20-100 MCG/ACT Inhaler Inhale 1 [...] Unit 03/31/2022 Active TRUEplus Lancets 33G 07/02/2022 Active True Metrix Blood Glucose Test In Vitro Strip 08/30/2022 Active True Metrix Meter w/Device Kit 07/12/2022 Active Alendronate Sodium 70 MG Oral Tablet (Fosamax) Take 1 Tablet by mouth once a week. 08/14/2022 Active Apixaban 5 MG Oral Tablet (Eliquis)Indication s:Persistent atrial fibrillation (HCC) TAKE 1 TABLET BY [...] 09/05/2023 Active Torsemide 20 MG Oral Tablet (Demadex)Indication s:HTN, goal below 140/90,Dyslipidemia , goal LDL below 70,Permanent atrial fibrillation (HCC),Chronic diastolic congestive heart failure (HCC),ICD (implantable cardioverter-defibr illator), single, in situ Take 2 Tablets by [...] before bedtime. 60 Capsule 1 12/26/2023 Active Ipratropium-Albuter ol 0.5-2.5 (3) MG/3ML Inhalation Solution (Duoneb) Inhale 3 mL via nebulizer in the morning and 3 mL before bedtime. 02/02/2024 Active oxyCODONE HCl 5 MG Oral Tablet (Oxy IR) Take 1 Tablet by mouth every 6 hours as needed for Pain, Severe. 5 Tablet 12/26/2023 02/16/20 24 Discontinu ed(Medicat ion List Clean Up) documented as of this encounter (statuses as of 02/16/2024) Active Problems Problem Noted Date Diagnosed Date Fall at home 12/19/2023 Leg edema 11/10/2023 PAD (peripheral artery disease) 11/10/2023 Elevated transaminase level 11/10/2023 Coronary artery disease invo lving tangirnaq coronary artery of tangirnaq heart without angina pectoris 11/10/2023 Abnormal nuclear [...] Sign Reading Time Taken Comments Blood Pressure 96/65 02/16/2024 10:05 AM EDT Pulse 80 02/16/2024 10:05 AM EDT Temperature - - Respiratory Rate - - Oxygen Saturation - - Inhaled Oxygen Concentration - - Weight - [...] as of this encounter Progress Notes * Nel Rajan PA-C - 02/16/2024 10:07 AM EDT 02/16/2024 Cardiology Follow Up Primary Lap Winding Machine Operator: Dr. Quintero Cardiac Problems: Chronic HFpEF Hx Takotsubo Cardiomyopathy 2010 complicated by VFib arrest. Moderate Tricuspid Regurgitation Single-Chamber ICD 11/2010 gen change 2019. Non-obstructive CAD 11/01/22 STEMI. 11/01/22. HTN HLD Permanent AFIB Lymphedema PVD -s/p LLE Embolectomy 12/23/22 Pericardial Effusion s/p thoracentesis 07/2023 s/p pericardiocentesis 11/02/22 HPI: Lillian Feliciano is a 89 year old year old female who sustained VFIB cardiac arrest in November 2010. Echo was suggestive of multivessel coronary artery disease vs stress-induced cardiomyopathy. She underwent cardiac catheterization and had no significant coronary artery disease. She has a single-chamber ICD. Unfortunately she sustained STEMI 10/2022, cardiac catheterization without culprit lesion. Admitted to [facility] 11/10-11/12/23 with increased shortness of breath. Patient declines cardiac catheterization. Daughter and patient preferred medical management. Discharged on Torsemide 40 mg BID. Weightat discharge was 127 lb. Admitted 12/18-12/26/2023 after patient suffered a mechanical fall with hip fracture. Underwent repair.Home dose of lyrica reduced to help with somnolence which was thought to contribute to fall. Evaluated in the ED 01/27/2024 for 5 electric shocks in L chest which she believed was ICD discharging. Device interrogation revealed no evidence of delivered shocks. ACS ruled out. Had no further recurrence of shocks. Accompanied by her daughter today. HPI is limited as patient is poor historian Lives in [facility] development Continues to have intermittent L sided chest pain. Reports this is not new or worsening in severity. Sleeps in a recliner Reports breathing is at baseline Walks short distances. Used a wheelchair to get to clinic today No angina symptoms No syncope No CHF symptoms No new or worsening shortness of breath States she is compliant with all medications and endorses no side effects today. REVIEW OF SYSTEMS: See HPI for pertinent positives. All others negative other than those noted in the HPI. CONSTITUTIONAL: No change in weight, No weakness, No fatigue, No fevers, No sweats or chills. PULMONARY: No cough, sputum, or hemoptysis, No wheezing, No shortness or breath and No recent change in breathing. CARDIOVASCULAR: + chest pain, No edema, + dyspnea on exertion, No palpitations and No syncope. GASTROINTESTINAL: No abdominal pain, No change in bowel habits, No significant heartburn, No nausea, No vomiting, No diarrhea, No constipation, No blood in stools or black tarry stools. No dysphagia. HEMATOLOGIC: No abnormal bleeding and No bruising. NEUROLOGICAL: Normal balance, No headaches and No weakness. Review of patient's allergies indicates: No Known [...] affected area daily . Apply to BLE Jardiance 25 MG Oral Tablet Take 1 Tablet by mouth in the morning. Docusate Sodium 100 MG Oral Capsule (Colace) Take 1 Capsule by mouth 2 times a day as needed for Constipation. 10 Capsule 0 Fluticasone Furoate-Vilanterol 200-25 MCG/ACT Inhalation Aerosol Powder Breath Activated Inhale 1 Puff by mouth in the morning. 60 Blister Dosing Unit TRUEplus Lancets 33G True Metrix Blood Glucose Test In Vitro Strip True Metrix Meter w/Device Kit Alendronate Sodium 70 MG Oral Tablet (Fosamax) Take 1 Tablet by mouth once a week. Apixaban 5 MG Oral Tablet (Eliquis) TAKE 1 TABLET BY MOUTH 2 times daily 180 Tablet 3 Triamcinolone Acetonide 0.1 % External Cream (Aristocort) Apply to lower legs twice daily as neededfor dry skin 80 g 2 Aspirin 81 MG Oral Tablet Chewable Take 1 Tablet by mouth in the morning. Colchicine 0.6 MG Oral Tablet Take 1 Tablet by mouth in the morning. Omeprazole 20 MG Oral Capsule Delayed Release (PriLOSEC) Take 1 Capsule by mouth in the morning. Metoprolol Succinate ER 25 MG Oral Tablet Extended Release 24 Hour (Toprol XL) Take 1 Tablet by mouth in the morning. Torsemide 20 MG Oral Tablet (Demadex) Take 2 Tablets by mouth in the morning and 2 Tablets in the evening. 60 Tablet 0 Ondansetron 4 MG Oral Tablet Disintegrating (Zofran) Place 1 Tablet on tongue every 6 hours as needed for Nausea. 20 Tablet 0 oxyCODONE HCl 5 MG Oral Tablet (Oxy IR) Take 1 Tablet by mouth every 6 hours as needed for Pain, Severe. 5 Tablet 0 traMADol HCl 25 MG Oral Tablet Take 25 mg by mouth every 6 hours as needed for Pain, Mild. 10 Tablet 0 Senna-Docusate Sodium 8.6-50 MG Oral Tablet Take 1 Tablet by mouth in the morning. 30 Tablet 1 Polyethylene Glycol 3350 17 GM Oral Packet (Miralax) Take 1 Packet by mouth 2 times a day as needed(constipation). 14 Each 0 Pregabalin 100 MG Oral Capsule (Lyrica) Take 1 Capsule by mouth in the morning and 1 Capsule beforebedtime. 60 Capsule 1 No current facility-administered medications for this visit. Past Medical History: Diagnosis Date A-fib ([facility]) Asthma, mild persistent Critical limb ischemia of left lower extremity with autologous bypass graft ([facility]) 12/24/2022 DM type 2, goal A1c below 7 Hyperlipidemia Hypertension ICD (implantable cardioverter-defibrillator) in place Myocardial infarction acute ([facility]) 11/24/2010 Ventricular fibrillation arrest, Possible Takotsubo syndrome Nonischemic cardiomyopathy ([facility]) Takotsubo cardiomyopathy Family History Problem Relation Name Age of Onset Heart Disorder Mother Lung Disorder Father Cancer Sister Breast and lung Cancer Brother Unknown type Cancer Sister Breast and bone Cancer Sister Stomach Other (Accident at work due to a head injury) Brother Heart disease Brother Kidney disease Brother Cancer Brother stomach Social History Socioeconomic History Marital status: 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 No mold. Oil heat. No air conditioning. OBJECTIVE/PHYSICAL EXAMINATION: BP 96/65 (BP Site: Right Arm, BP Position: Sitting, BP Cuff Size: Large) | Pulse 80 Wt Readings from Last 3 Encounters: 01/27/24 60.8 kg (134 lb) 01/11/24 65.9 kg (145 lb 4.5 oz) 12/25/23 65.9 kg (145 lb 4.8 oz) General: No acute distress. A+Ox3. HEENT: Normocephalic. Atraumatic. PERRL. EOMI. Conjunctiva and sclera clear. NECK: No carotid bruits. No JVD. Carotid upstrokes are brisk. Heart: RRR. S1 and S2 noted. No murmur. No rubs or gallops. PMI non displaced. Lungs: Clear to auscultation. No wheezes.No rhonchi. No rales. Abdomen: Normal bowel sounds. Soft. Nontender. No masses or organomegaly. No abdominal bruits. Extremities: +1 BLE edema. No clubbing or cyanosis. Pulses: radial=2/4, posterior tibial=2/4, dorsalis pedis = 2/4. NEURO: No focal deficits. PSYCH: Appropriate affect and insight. DATA Labs & Imaging Reviewed Below: EKG 10/14/2023 AFIB 66bpm ECHO 12/24/2022 The qualitative LV ejection fraction is 55-59% (normal). The right ventricular cavity is mildly dilated. The right ventricular systolic function is normal as assessed by tricuspid annular plane systolic excursion . The aortic valve is mildly calcified. There is a calcified nodule on Aortic valve cup which was present on prior study as well. There is mild mitral annular calcification. Device Interrogation 09/08/2023 - Normal functioning single chamber ICD - Adequate battery - 95% AFIB burden; 0 shocks Cardiac CATH 11/02/2022 Large pericardial effusion s/p successful echo and fluoroscopy guided pericardiocentesis via apicalapproach. * 570 mL of Sanguineous/hemorrhagic fluid removed * Pericardial drain sutured in place * At the end of procedure effusion resolved and no tamponade present Cardiac CATH 11/01/2022 Non-obstructive CAD. No culprit for EKG presentation Ostial LCx has 50% stenosis and apical LAD has 60% stenosis ASSESSMENT/PLAN: 89 year old year old female 1. Chronic coronary artery disease 2. Nonocclusive coronary artery disease -Stable from a cardiac standpoint. -Continue ASA 81mg daily. Denies abnormal bleeding/melena -Nuclear stress test suggestive of ischemia of the distal to mid anterior wall and basal inferolateral inferior wall.Moderate area of area of moderate severe intensity reversible defect of distal to mid anterior and apex. Basal inferolateral and inferior wall -Patient has declined cardiac catheterization, prefers medical management -Will consider adding imdur for stable anginal symptoms. Hypotensive today. 3. Permanent atrial fibrillation (HCC) -Heart rate is well controlled -Continue metoprolol succinate 25mg daily -Anticoagulated with Eliquis 5mg BID. Denies abnormal bleeding/melena 4. HTN, goal below 130/80 -BP on the low side today -Encouraged adequate hydration 48-64 oz daily 5. Dyslipidemia, goal LDL below 70 -LDL is well controlled, 34 on 10/2022 -Continue atorvastatin 40mg daily 6. Chronic diastolic congestive heart failure (HCC) -Patient appears euvolemic on examination -Weight is down -Slightly hypotensive today, will hold off on starting spironolactone 25mg daily at this juncture -Continue torsemide 20mg BID. 7. ICD (implantable cardioverter-defibrillator), single, in situ -Stable function. No shocks delivered. 8. Hypokalemia -K 3.2 on 01/27/2024 -Repeat BMP today DISPOSITION: Follow up 4 months or if symptoms worsen/fail to improve. All questions were answered to the patients satisfaction. Patient advised to report to ED with any and all emergencies. The patient agrees to the above plan and will call with additional questions or concerns. Nel Rajan PA-C Cardiology [address] [place] [address] [facility] [place] [id number] I spent a total of 48 minutes on the date of service in preparation, delivery, and documentation ofthe care provided to Lillian Feliciano excluding any time spent in the performance of separately billed services. This chart was completed in part utilizing [employer] Voice Recognition Software. Grammatical errors, random word insertions, pronoun errors, and incomplete sentences are an occasional consequence of this system due to software limitations, ambient noise, and hardware issues. Any formal questions or concerns about the content, text, or information contained within the body of this dictation should be directly addressed to the provider for clarification. documented in this encounter Nursing Notes * Jami Glover, OLGAA - 02/16/2024 10:06 AM EDT Examination Room: 3 Name: Lillian Feliciano Date of : (1935). Reason for Visit: follow up Interim Hospitalization(s): 01/27/24 [facility] dc Problems/Concerns: LE edema, pt reports worse on right. Chest Pain/SOB: no current CP or SOB. Medications were updated via: pt granddaughter memory via phone. My [facility] is a way you can talk to your provider online through e-mail. Would you like to sign up? I can activate it for you? DECLINES Patient was instructed to not get up on the exam table until directed and assisted by their provider; patient is to remain seated in the chair/ wheelchair/ exam table for fall prevention and safety reasons. Patient is aware to have assistance to step down off exam table with personnel. Patient voiced full comprehension of instructions. documented in this encounter Plan of Treatment Upcoming Encounters Date Type Department Care Team (Late st Contact Info) Description 02/20/2024 10:00 AM EDT Office Visit Orthopaedics [facility] [address] [place] [address] Yg Pickering PA-C [address] [place] [address] 04/04/2024 9:00 AM EDT Cardiac Studies Cardiology, [place] [address] [place] [address] [facility] [address] [place] [address] 06/18/2024 9:30 AM EDT Office Visit [facility] [address] [place] [address] Nel Rajan PA-C [address] [facility] [place] [address] Pending Results Name Type Priority Associated Diagnoses Date /Time BASIC METABOLIC PANEL Lab Routine Chronic heart failure with preserved ejection fraction (HFpEF) ([facility]) 02/16/2024 10:45 AM EDT Scheduled Orders Name Type Priority Associated Diagnoses Orde r Schedule BASIC METABOLIC PANEL Lab Routine Chronic heart failure with preserved ejection fraction (HFpEF) ([facility]) Expected: 02/16/2024, Expires: 02/15/2025 Health Maintenance Due Date Last Done Comments [...] this encounter Medical Devices Implanted Type Area Rental Sales Associate Device Identifier Shelf Expiration Date Model / Serial / Lot Lens [address] [facility] - [id number] - [id number] Implanted:Qty: 1 on 01/28/2023 by Christian Woo DO at OR [facility] Lens Right: Eye [employer] 10/12/2025 [id number] / [id number] / [place] 6.5mm Partially Threaded (20mm) Screws, Non-Sterile 90mm Implanted:Qty: 2 on 12/21/2023 by Sulaiman Morales MD at OR [facility] Screw Right: Hip DENISE : ORTHOPAEDICS N/A [id number] / N/A / N/A Description:From sterile set on field. No LOT #, Expiration date or serial # present. # [id number] per [facility] Team Denise 6.5mm Partially Threaded (20mm) Screws, Non-Sterile 95mm Implanted:Qty: 1 on 12/21/2023 by Sulaiman Morales MD at OR [facility] Screw Right: Hip DENISE N/A [id number] / N/A / N/A Description:From sterile set on field. No LOT #, Expiration date or serial # present. # [id number] per [facility] Team Lens 20.5 [place] - [id number] - [id number] Implanted:Qty: 1 on 01/04/2023 by Christian Woo DO at OR [facility] Left: Eye [employer] 07/15/2025 [id number] / [id number] / documented as of this encounter Visit Diagnoses Diagnosis Non-occlusive coronary artery disease- Primary Coronary atherosclerosis of unspecified type of vessel, tangirnaq or graft Chronic coronary artery disease Coronary atherosclerosis of unspecified type of vessel, tangirnaq or graft Chronic heart failure with preserved ejection fraction (HFpEF) (HCC) Permanent atrial fibrillation (HCC) Atrial fibrillation Essential hypertension with goal blood pressure less than 130/80 Dyslipidemia, goal LDL below 70 Other and unspecified hyperlipidemia ICD (implantable cardioverter-defibrillator), single, in situ Hypokalemia Hypopotassemia documented in this encounter Advance [...] the patient have Health Care Power of Unit Manager Rn? Yes, not currently available * Full Code [...] Discussed due to patient's condition Care Teams Directional Bore Operator Relationship Specialty Start Date End Date Isrrael Bolivar DO [address] [facility] [place] [id number] PCP - General Family Medicine 11/24/10 documented as of this encounter"
--- OUTSIDE RECORDS SUMMARY | 2024-05-05 22:00 | External Medical Summary | Summary of Care ---
Author Name Unknown Organization [facility] Address [address] [place] [address] Phone [phone] Care Team Providers Care Trouble Lineman Name Role Phone Isrrael Bolivar Primary Care Provider [phone] Reason for Visit * Reason Comments Other * Auth/Cert Specialty Diagnoses / Procedures Referred By Albin t Referred To Contact [facility] [address] [place] [address] Phone: [phone] [facility] [address] [place] [address] Referral ID Status Reason Start Date Expiration Date Visits Re quested Visits Authorized [id number] Encounter Details Date Type Department Care Team (Late st Contact Info) Description 01/27/2024 4:57 PM EDT - 01/27/2024 7:22 PM EDT Emergency [facility] Emergency Department (GL) [address] [place] [address] Hussain Zimmerman MD [address], [place] [id number] Chest pain, unspecified type (Primary Dx); Hypokalemia Discharge Disposition: Home - Self Care Allergies No known active allergiesdocumented as of this encounter (statuses as of 01/28/2024) Medications Medication Sig Dispensed Refills Start Date [...] as of this encounter (statuses as of 01/28/2024) Active Problems Problem Noted Date Diagnosed Date Fall at home 12/19/2023 Leg edema 11/10/2023 PAD (peripheral artery disease) 11/10/2023 Elevated transaminase level 11/10/2023 Coronary artery disease invo lving [place] coronary artery of [place] heart without angina pectoris 11/10/2023 Abnormal nuclear [...] as of this encounter (statuses as of 01/28/2024) Resolved Problems Problem Noted Date Diagnosed Date Resolved Date Closed fracture of right femur 12/19/2023 12/26/2023 Closed fracture of right hip 12/19/2023 12/26/2023 Cardiac/pericardial tamponade 11/02/2022 11/05/2022 Hypoxemia 11/24/2018 11/27/2018 Cardiac arrest 11/24/2010 07/14/2011 Ventricular fibrillation 11/24/2010 Acute non Q wave myocardial infarction 11/24/2010 07/14/2011 HTN, goal below 130/80 11/24/201005/11 Overview: Per HTN Protocol #27. documented as of this encounter (statuses as of 01/28/2024) Immunizations Name Administration Dates Next Due Pneumococcal [...] Sign Reading Time Taken Comments Blood Pressure 124/63 01/27/2024 7:00 PM EDT Pulse 53 01/27/2024 7:00 PM EDT Temperature 36.2 C (97.2 F) 01/27/2024 5:03 PM ED T Respiratory Rate 16 01/27/2024 7:00 PM EDT Oxygen Saturation 92% 01/27/2024 7:00 PM EDT Inhaled Oxygen Concentration - - Weight 60.8 kg (134 lb) 01/27/2024 5:03 PM EDT Height 162.6 cm (5' 4") 01/27/2024 5:03 PM EDT Body Mass Index 23 01/27/2024 5:03 PM EDT documented in this encounter Functional [...] this encounter Discharge Instructions * Discharge Instructions* Hussain Zimmerman MD - 01/27/2024 7:09 PM EDT Please follow-up with your regular doctor the next available appointment for ER follow-up. Please return to the emergency department in the meantime for any new or worsening symptoms otherwise. documented in this encounter ED Notes * Hussain Zimmerman MD - 01/27/2024 5:56 PM EDT HISTORY OF PRESENT ILLNESS Lillian Feliciano is a 89 year old female who presents to the ED for evaluation of Other. The patient was seen at 01/27/24 173. Patient reports that she had 5 discrete episodes of electrical shock pain in the left side of her chest today, which she thinks is her defibrillator discharging. States that she was feeling totally normal today, denied any palpitations, chest pain, difficulty breathing, lightheadedness or dizziness. EMS was called and found that she was initially hypoxic at 84-86% on room air. She does not wear oxygen at home. She did have her right hip repaired last month and just got out of rehab this week. She is on Eliquis due to history of AFib. She has a history of coronary artery disease, myocardial infarction, cardiomyopathy. Denies recent cough, productive sputum, hemoptysis. Her left leg has been swollen since surgery. Denies increased pain recently. No known drug allergies Review of Systems Cardiovascular: Positive for chest pain. The patient's allergies, past history, and medications were reviewed. PHYSICAL EXAM Initial Vitals (see all): BP 159/74 | Pulse 66 | Resp 28 | Temp 97.2 | O2 99 %, Room Air, None | Weight 60.78 kg | Height 162.6 cm | BMI 23 kg/m2 Initial Pain Assessment (see all): 0 (no pain)/10 ([facility] Adult Scale 0-10) Physical Exam Vitals and nursing note reviewed. Constitutional: General: She is not in acute distress. Appearance: Normal appearance. She is well-developed. She is not diaphoretic. HENT: Head: Normocephalic and atraumatic. Nose: Nose normal. Mouth/Throat: Mouth: Mucous membranes are moist. Pharynx: Oropharynx is clear. Eyes: General: No scleral icterus. Extraocular Movements: Extraocular movements intact. Conjunctiva/sclera: Conjunctivae normal. Pupils: Pupils are equal, round, and reactive to light. Neck: Thyroid: No thyromegaly. Vascular: No JVD. Cardiovascular: Rate and Rhythm: Normal rate. Rhythm irregular. Heart sounds: Normal heart sounds. No murmur heard. No friction rub. No gallop. Pulmonary: Effort: Pulmonary effort is normal. No respiratory distress. Breath sounds: Normal breath sounds. No wheezing or rales. Chest: Chest wall: No tenderness. Abdominal: General: Bowel sounds are normal. There is no distension. Palpations: Abdomen is soft. There is no mass. Tenderness: There is no abdominal tenderness. There is no guarding or rebound. Musculoskeletal: General: Normal range of motion. Cervical back: Normal range of motion and neck supple. No muscular tenderness. Right lower leg: Edema present. Left lower leg: No edema. Skin: General: Skin is warm and dry. Comments: There is a healing wound on the right heel. Does not appear erythematous and is not warm to touch. Neurological: General: No focal deficit present. Mental Status: She is alert and oriented to person, place, and time. Psychiatric: Mood and Affect: Mood normal. Behavior: Behavior normal. PROCEDURES AND TREATMENTS ED Orders | ED Results MEDICAL DECISION MAKING Nursing notes and vital signs were reviewed. ED Course as of 01/27/241910January 27, 2024 1738 ED Triage Notes EMS report: Pt was 84-86% on RA when they arrived. They put pt on 4L O2 and spo2 improved to 100%. Says that pt's defibrillator went off multiple times per pt. EMS says that defibrillator did not go off while inthe ambulance. Prehospital 20G PIV in LAC. [MM] 1738 BP: 159/74 [MM] 1738 Pulse: 66 [MM] 1738 Resp: 28 [MM] 1738 SpO2: 99 % [MM] 1738 Temp: 36.2 C (97.2 F) [MM] 1739 My interpretation of the EKG shows rate 69, atrial fibrillation, no ST depression or elevationnoted. There are PVCs present. [MM] 1739 Nursing is going to interrogate the defibrillator [MM] 1746 Pt now off supplemental O2, saturating well on RA [MM] 1756 Spoke with Cardiology regarding the interrogation report, there are no reported defibrillationevents. [MM] 1812 WBC: 6.49 [MM] 1812 HGB: 12.4 [MM] 1821 D-Dimer: 0.47 [MM] 1824 Troponin T, High Sensitivity(!): 18 Not increased from baseline [MM] 1836 Potassium(!): 3.2 [MM] 1837 BNP, NT-Pro(!): 1,401 Not increased from baseline [MM] 1852 IMPRESSION: No acute findings. [MM] 1905 Troponin T, High Sensitivity(!): 18 Unchanged from baseline [MM] 1909 Patient remains feeling asymptomatic here in the emergency department. Discharged home in stable condition. Advised PCP follow-up. Return precautions given. [MM] ED Course User Index [MM] Hussain Zimmerman MD Patient presented after having approximately 4 or 5 episodes of electric shock pain in the left side of her chest, she was concerned that her defibrillator has been shocking her. Interrogation report shows no shocks delivered today. EKG does not appear to show any acute ischemic change or dysrhythmia. Lab work grossly unremarkable today including initial and repeat troponin. BNP not increased from baseline, D-dimer normal range. Her potassium was slightly low at 3.2. She was given oral repletion. Discharged home in stable condition. Advised PCP follow-up. Return precautions given. Amount and/or Complexity of Data Reviewed Labs: ordered. Decision-making details documented in ED Course. Radiology: ordered. Risk Prescription drug management. Clinical Impressions Chest pain, unspecified type Hypokalemia Disposition Discharged. The patient's condition at disposition was: stable. Hussain Zimmerman * Randi Yusuf RN - 01/27/2024 4:59 PM EDT EMS report: Pt was 84-86% on RA when they arrived. They put pt on 4L O2 and spo2 improved to 100%. Says that pt's defibrillator went off multiple times per pt. EMS says that defibrillator did not go off while inthe ambulance. Prehospital 20G PIV in LAC. documented in this encounter Miscellaneous Notes * ED Automotive Machinist Note - Yuri Negrete RN - 01/27/2024 7:21 PM EDT Pt verbalizes d/c instructions. VSS. Taken out of the ED in a wheelchair. * ED Automotive Machinist Note - Yuri Negrete RN - 01/27/2024 5:00 PM EDT 1700: Pt presents today to the ED via EMS for defibrillator going off multiple times. Pt states shelost track how many times it went off. Pt states she has hx of asthma, no COPD. Pt was placed on 4Lupon EMS arrival due to being 85% on RA. Pt stated when her defibrillator was going off she had no CP but was having some SOB. Pt denies any cough, congestion, nausea, abdominal pain, left arm pain or jaw pain. Pt does not wear oxygen at baseline. Pt states she lives at home with her granddaughter, does not walk with a walker or cane. Pt stated she fell last month and broke her right hip, pt stated she recently had right hip surgery, she is currently non weight bearing. 1745: Pt weaned down to RA from 4L, spo2 remaining 98% on RA. Pacemaker interrogated. Report on provider desk. Provider aware. documented in this encounter Plan of Treatment Upcoming Encounters Date Type Department Care Team (Late st Contact Info) Description 02/16/2024 10:00 AM EDT Office Visit [facility] [address] [address] Nel Rajan PA-C [address] [place] [address] 02/20/2024 10:00 AM EDT Office Visit Orthopaedics [facility] [address] [address] Yg Pickering PA-C [address] [address] 04/04/2024 9:00 AM EDT Cardiac Studies [facility] [address] [address] [facility] [address] [address] Health Maintenance Due Date Last Done Comments [...] this encounter Medical Devices Implanted Type Area Production Support Consultant Device Identifier Shelf Expiration Date Model / Serial / Lot Lens 21.0 [facility] - [id number] - [id number] Implanted:Qty: 1 on 01/28/2023 by Christian Woo DO at [facility] Lens Right: Eye [employer] 10/12/2025 [id number] / [id number] / Denise 6.5mm Partially Threaded (20mm) Screws, Non-Sterile 90mm Implanted:Qty: 2 on 12/21/2023 by Sulaiman Morales MD at [facility] Screw Right: Hip DENISE : ORTHOPAEDICS N/A [id number] / N/A / N/A Description:From sterile set on field. No LOT #, Expiration date or serial # present. WD# [id number] per CDM Team [place] 6.5mm Partially Threaded (20mm) Screws, Non-Sterile 95mm Implanted:Qty: 1 on 12/21/2023 by Sulaiman Morales MD at [facility] Screw Right: Hip DENISE N/A [id number] / N/A / N/A Description:From sterile set on field. No LOT #, Expiration date or serial # present. WD# [id number] per CDM Team Lens 20.5 [employer] - [id number] - [id number] Implanted:Qty: 1 on 01/04/2023 by Christian Woo DO at [facility] Left: Eye [employer] 07/15/2025 [id number] / [id number] / documented as of this encounter Procedures Procedure Name Priority Date/Time Associated Diagnosis Comments TROPONIN T, HIGH SENSITIVITY STAT 01/27/2024 6:42 PM EDT D-DIMER STAT 01/27/2024 5:57 PM EDT PT INR STAT 01/27/2024 5:57 PM EDT APTT STAT 01/27/2024 5:57 PM EDT DIFFERENTIAL, AUTOMATED STAT 01/27/2024 5:56 PM EDT TROPONIN T, HIGH SENSITIVITY STAT 01/27/2024 5:56 PM EDT BNP (NT-PROBNP) STAT 01/27/2024 5:56 PM EDT COMPREHENSIVE METABOLIC PANEL STAT 01/27/2024 5:56 PM EDT CBC STAT 01/27/2024 5:56 PM EDT CBC STAT 01/27/2024 5:56 PM EDT XR CHEST 1 VIEW STAT 01/27/2024 5:53 PM EDT documented in this encounter Results * (ABNORMAL) TROPONIN T, HIGH SENSITIVITY (01/27/2024 6:42 PM EDT) [facility] Troponin T, High Sensitivity 18(H) <=14 ng/L 01/27/2024 7:04 PM EDT LABORATORY [facility] Blood Venous blood specimen / Unknown Venipuncture / Unknown 01/27/2024 6:42 PM EDT 01/27/2024 6:45 PM EDT Hussain Zimmerman MD LAB BLOOD ORDERABLES Performing Organization Address [facility] Co de Phone Number LABORATORY [address] [address] * D-DIMER (01/27/2024 5:57 PM EDT) [facility] D-Dimer 0.47 <0.50 ug/mL FEU 01/27/2024 6:16 PM EDT LABORATORY [facility] Blood Venous blood specimen / Unknown Venipuncture / Unknown 01/27/2024 5:57 PM EDT 01/27/2024 6:00 PM EDT Narrative LABORATORY [facility] - 01/27/2024 6:16 PM EDT Rheumatoid factor at a level above 50 [...] definitively correlate with clinical severity of disease. Hussain Zimmerman MD LAB BLOOD ORDERABLES Performing Organization Address [facility] Co de Phone Number LABORATORY [address] [phone] * APTT (01/27/2024 5:57 PM EDT) [facility] aPTT 37 21 - 38 seconds 01/27/2024 6:16 PM EDT LABORATORY [facility] Blood Venous blood specimen / Unknown Venipuncture / Unknown 01/27/2024 5:57 PM EDT 01/27/2024 6:00 PM EDT [facility] LABORATORY [facility] - 01/27/2024 6:16 PM EDT Anticoagulation may affect testing. Refer to [employer] Test Catalog for a list of effects. Hussain Zimmerman MD LAB BLOOD ORDERABLES Performing Organization Address [facility] de Phone Number LABORATORY [address] [address] * (ABNORMAL) PT INR (01/27/2024 5:57 PM EDT) Prothrombin Time 19.4(H) 11.6 - 15.2 seconds 01/27/2024 6:15 PM EDT LABORATORY [facility] INR 1.6(H) 0.8 - 1.2 01/27/2024 6:15 PM EDT LABORATORY [facility] Blood Venous blood specimen / Unknown Venipuncture / Unknown 01/27/2024 5:57 PM EDT 01/27/2024 6:00 PM EDT [facility] LABORATORY [facility] - 01/27/2024 6:15 PM EDT Warfarin Therapy INR: 2.0-3.0 conventional anticoagulation INR: 2.5-3.5 high intensity anticoagulation Hussain Zimmerman MD LAB BLOOD ORDERABLES Performing Organization Address [facility] de Phone Number LABORATORY [address] [address] * DIFFERENTIAL, AUTOMATED (01/27/2024 5:56 PM EDT) WBC 6.49 4.00 - 10.80 K/uL 01/27/2024 6:11 PM EDT LABORATORY [facility] Neutrophils % 67.0 40.0 - 75.0 % 01/27/2024 6:11 PM EDT LABORATORY [facility] Lymphocytes % 21.3 18.0 - 42.0 % 01/27/2024 6:11 PM EDT LABORATORY [facility] Monocytes % 8.5 1.0 - 11.0 % 01/27/2024 6:11 PM EDT LABORATORY GL Eosinophils % 2.8 0.0 - 6.0 % 01/27/2024 6:11 PM EDT LABORATORY GL Basophils % 0.2 0.0 - 2.0 % 01/27/2024 6:11 PM EDT LABORATORY GL Immature Granulocytes % 0.2 0.0 - 2.0 % 01/27/2024 6:11 PM EDT LABORATORY [facility] Absolute Neutrophils 4.36 1.80 - 7.70 K/uL 01/27/2024 6:11 PM EDT LABORATORY GL Absolute Lymphocytes 1.38 1.00 - 4.80 K/ul 01/27/2024 6:11 PM EDT LABORATORY [facility] Absolute Monocytes 0.55 0.00 - 1.10 K/uL 01/27/2024 6:11 PM EDT LABORATORY [facility] Absolute Eosinophils 0.18 0.00 - 0.70 K/uL 01/27/2024 6:11 PM EDT LABORATORY [facility] Absolute Basophils 0.01 0.00 - 0.20 K/uL 01/27/2024 6:11 PM EDT LABORATORY GL Absolute Immature Granulocytes 0.01 0.00 - 0.20 K/uL 01/27/2024 6:11 PM EDT LABORATORY [facility] Blood Venous blood specimen / Unknown Venipuncture / Unknown 01/27/2024 5:56 PM EDT 01/27/2024 6:00 PM EDT Hussain Zimmerman MD LAB BLOOD ORDERABLES Performing Organization Address City/State/[facility] Co de Phone Number LABORATORY [address] [address] * CBC (01/27/2024 5:56 PM EDT) [facility] WBC 6.49 4.00 - 10.80 K/uL 01/27/2024 6:11 PM EDT LABORATORY [facility] RBC 4.91 3.85 - 5.15 M/uL 01/27/2024 6:11 PM EDT LABORATORY [facility] HGB 12.4 12.0 - 15.3 g/dL 01/27/2024 6:11 PM EDT LABORATORY GL HCT 39.7 36.0 - 45.2 % 01/27/2024 6:11 PM EDT LABORATORY GL MCV 80.9 81.5 - 97.5 fL 01/27/2024 6:11 PM EDT LABORATORY GL MCH 25.3 27.0 - 34.0 pg 01/27/2024 6:11 PM EDT LABORATORY GL MCHC 31.2 32.0 - 36.0 g/dL 01/27/2024 6:11 PM EDT LABORATORY GL RDW 20.6 11.5 - 15.5 % 01/27/2024 6:11 PM EDT LABORATORY GL PLT 157 140 - 400 K/uL 01/27/2024 6:11 PM EDT LABORATORY GL MPV 11.7 6.6 - 11.1 fL 01/27/2024 6:11 PM EDT LABORATORY GL nRBCs 0 <=0 /100 WBCs 01/27/2024 6:11 PM EDT LABORATORY [facility] Blood Venous blood specimen / Unknown Venipuncture / Unknown 01/27/2024 5:56 PM EDT 01/27/2024 6:00 PM EDT Hussain Zimmerman MD LAB BLOOD ORDERABLES LABORATORY [address] [address] * (ABNORMAL) COMPREHENSIVE METABOLIC PANEL (01/27/2024 5:56 PM EDT) BUN 19 6 - 20 mg/dL 01/27/2024 6:31 PM EDT LABORATORY GL Creatinine 0.8 0.5 - 1.0 mg/dL 01/27/2024 6:31 PM EDT LABORATORY [facility] Estimated Glomerular Filtration Rate 67 >=60 mL/min 01/27/2024 6:31 PM EDT LABORATORY [facility] Comment:eGFR is calculated b ased on the CKD-EPI 2020 equation Sodium 141 135 - 146 mmol/L 01/27/2024 6:31 PM EDT LABORATORY [facility] Potassium 3.2(L) 3.5 - 5.1 mmol/L 01/27/2024 6:31 PM EDT LABORATORY [facility] Chloride 103 98 - 107 mmol/L 01/27/2024 6:31 PM EDT LABORATORY [facility] CO2 26 22 - 32 mmol/L 01/27/2024 6:31 PM EDT LABORATORY [facility] Anion Gap 12 7 - 15 mmol/L 01/27/2024 6:31 PM EDT LABORATORY [facility] Glucose 168(H) 70 - 120 mg/dL 01/27/2024 6:31 PM EDT LABORATORY [facility] Albumin 3.9 3.8 - 5.0 g/dL 01/27/2024 6:31 PM EDT LABORATORY [facility] AST 19 10 - 35 U/L 01/27/2024 6:31 PM EDT LABORATORY [facility] Alkaline Phosphatase 104 35 - 130 U/L 01/27/2024 6:31 PM EDT LABORATORY [facility] Bilirubin, Total 0.6 <=1.2 mg/dL 01/27/2024 6:31 PM EDT LABORATORY [facility] Calcium 9.7 8.4 - 10.2 mg/dL 01/27/2024 6:31 PM EDT LABORATORY [facility] Protein 5.9(L) 6.0 - 8.3 g/dL 01/27/2024 6:31 PM EDT LABORATORY [facility] ALT 9(L) 10 - 35 U/L 01/27/2024 6:31 PM EDT LABORATORY [facility] Blood Venous blood specimen / Unknown Venipuncture / Unknown 01/27/2024 5:56 PM EDT 01/27/2024 6:00 PM EDT Hussain Zimmerman MD LAB BLOOD ORDERABLES LABORATORY [address] [address] * (ABNORMAL) BNP, NT-PRO (01/27/2024 5:56 PM EDT) BNP, NT-Pro 1,401(H) <300 pg/mL 01/27/2024 6:31 PM EDT LABORATORY [facility] Blood Venous blood specimen / Unknown Venipuncture / Unknown 01/27/2024 5:56 PM EDT 01/27/2024 6:00 PM EDT Narrative LABORATORY [facility] - 01/27/2024 6:31 PM EDT Exclude Heart Failure: <300 pg/mL Diagnose Heart Failure: Age <50 yr: >450 pg/mL 50-75 yr: >900 pg/mL >75 yr: >1800 pg/mL GFR is 30-59 mL/min: >1200 pg/mL or Age-adjusted values GFR <30 mL/min: do not use, not reliable Prognostic threshold: 1000 pg/mL Hussain Zimmerman MD LAB BLOOD ORDERABLES Performing Organization Address [facility] de Phone Number LABORATORY [address] [address] * (ABNORMAL) TROPONIN T, HIGH SENSITIVITY (01/27/2024 5:56 PM EDT) Troponin T, High Sensitivity 18(H) <=14 ng/L 01/27/2024 6:22 PM EDT LABORATORY [facility] Blood Venous blood specimen / Unknown Venipuncture / Unknown 01/27/2024 5:56 PM EDT 01/27/2024 6:00 PM EDT Hussain Zimmerman MD LAB BLOOD ORDERABLES Performing Organization Address [facility] de Phone Number LABORATORY [address] [address] * XR CHEST 1 VIEW (01/27/2024 5:53 PM EDT) Anatomical Region Laterality Modality Chest Digital Radiogra phy 01/27/2024 5:44 PM EDT Impressions 01/27/2024 6:49 PM EDT IMPRESSION: No acute findings. THIS DOCUMENT HAS BEEN ELECTRONICALLY SIGNED BY HUSSAIN GARCES MD Narrative 01/27/2024 6:49 PM EDT PROCEDURE INFORMATION: Exam: XR Chest Exam date and time: 01/27/2024 5:44 PM Age: 89 years old Clinical indication: Other: Pt's defibrillator went off today. ; Additional info: Hypoxia TECHNIQUE: Imaging protocol: Radiologic exam of the chest. Views: 1 view. COMPARISON: DX XR CHEST 1 VIEW 12/19/2023 10:00 AM FINDINGS: Tubes, catheters and devices: Stable left pacemaker. Lungs: Unremarkable. No consolidation. Pleural spaces: Unremarkable. No pleural effusion. No pneumothorax. Heart/Mediastinum: Unremarkable. No cardiomegaly. Vasculature: Calcification of the thoracic aorta and/or great vessels consistent with atherosclerotic vessel disease. 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 Procedure Note Hussain Garces MD - 01/27/2024 PROCEDURE INFORMATION: Exam: XR Chest Exam date and time: 01/27/2024 5:44 PM Age: 89 years old Clinical indication: Other: Pt's defibrillator went off today. ;Additional info: Hypoxia TECHNIQUE: Imaging protocol: Radiologic exam of the chest. Views: 1 view. COMPARISON: DX XR CHEST 1 VIEW 12/19/2023 10:00 AM FINDINGS: Tubes, catheters and devices: Stable left pacemaker. Lungs: Unremarkable. No consolidation. Pleural spaces: Unremarkable. No pleural effusion. No pneumothorax. Heart/Mediastinum: Unremarkable. No cardiomegaly. Vasculature: Calcification of the thoracic aorta and/or great vessels consistent with atherosclerotic vessel disease. 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 IMPRESSION IMPRESSION: No acute findings. THIS DOCUMENT HAS BEEN ELECTRONICALLY SIGNED BY HUSSAIN GARCES MD Hussain Zimmerman MD RADIOLOGY (RAD GENER AL) documented in this encounter Visit Diagnoses Diagnosis Chest pain, unspecified type- Primary Hypokalemia Hypopotassemia documented in this encounter Administered Medications Inactive Administered Medications - up to 3 most recent administrations Medication Order MAR Action Action Date Dose Rate Site potassium chloride ER tab 40 mEq 40 mEq, Oral, ONCE, On Tue01/27/24 at 1915, For 1 dose, This med should NOT be Crushed or Chewed Given 01/27/2024 6:47 PM EDT 40 mEq documented in this encounter Active and Recently Administered Medications Times are shown in EDT. Scheduled Medication Order 01/25/2024 01/26/2024 01/27/2024 potassium chloride ER tab 40 mEq (COMPLETED) 40 mEq, Oral, ONCE, On Tue01/27/24 at 1915, For 1 dose, This med should NOT be Crushed or Chewed 184 (Given - Provid er: Yuri Negrete RN) documented in this encounter Advance Directives [...] the patient have Health Care Power of Program Or Project Administrator? Yes, not currently available Full Code 01/28/2023 [...] Discussed due to patient's condition Care Teams Trouble Lineman Relationship Specialty Start Date End Date Isrrael Bolivar DO [address] [place] [address] PCP - General Family Medicine 11/24/10 documented as of this encounter
--- OUTSIDE RECORDS SUMMARY | 2024-05-05 22:00 | External Medical Summary | Summary of Care ---
Author Name Unknown Organization [facility] Address [address] [place] [address] Phone [phone] Care Team Providers Care Linux Solaris Administrator Name Role Phone BolivarJulio fordn Robinson Primary Care Provider + [phone] Reason for Visit * Reason Comments Post-Op Subcapital fracture of hip, right, closedPERCUTANEOUS FIXATION PROXIMAL FEMORAL FRACTURE, DOS 12/21/23 Encounter Details Date Type Department Care Team (Latest Contact Info) Description 01/11/2024 11:00 AM EDT Office Visit Orthopaedics [facility] [address] [place] [address] Yg Pickering PA-C [address] [place] [address] Aftercare following surgery of the musculoskeletal system* Allergies No known active allergiesdocumented as of this encounter (statuses as of 01/11/2024) Medications Medication Sig Dispensed Refills Start Date [...] as of this encounter (statuses as of 01/11/2024) Active Problems Problem Noted Date Diagnosed Date Fall at home 12/19/2023 Leg edema 11/10/2023 PAD (peripheral artery disease) 11/10/2023 Elevated transaminase level 11/10/2023 Coronary artery disease invo lving [place] coronary artery of [place] heart without angina pectoris 11/10/2023 Abnormal nuclear [...] as of this encounter (statuses as of 01/11/2024) Resolved Problems Problem Noted Date Diagnosed Date Resolved Date Closed fracture of right femur 12/19/2023 12/26/2023 Closed fracture of right hip 12/19/2023 12/26/2023 Cardiac/pericardial tamponade 11/02/2022 11/05/2022 Hypoxemia 11/24/2018 11/27/2018 Cardiac arrest 11/24/2010 07/14/2011 Ventricular fibrillation 11/24/2010 Acute non Q wave myocardial infarction 11/24/2010 07/14/2011 HTN, goal below 130/80 11/24/201005/11 Overview: Per HTN Protocol #27. documented as of this encounter (statuses as of 01/11/2024) Immunizations Name Administration Dates Next Due Pneumococcal [...] - Inhaled Oxygen Concentration - - Weight 65.9 kg (145 lb 4.5 oz) 01/11/2024 10:37 AM EDT Height 165.1 cm (5' 5") 01/11/2024 10:37 AM EDT Body Mass Index 24.18 01/11/2024 10:37 AM EDT documented in this encounter Functional [...] Progress Notes * Yg Pickering PA-C - 01/11/2024 10:46 AM EDT Established patient presents today 3 weeks status post percutaneous screw fixation of right subcapital femoral neck fracture performed by Dr. Morales on 12/21/2023. Patient states that her symptoms are tolerable and improving. Denies any new injury or fall. Denies any calf pain. Denies any fevers orchills. No shortness of breath or chest pain. Will need repeat x-rays of the right hip today. Has remained nonweightbearing. Is currently at rehab during her postoperative course. Complete review systems negative General: alert and oriented x3 female, no acute distress, appears currently stated age, pleasant, well nourished Skin: Right hip reveals postsurgical changes with incisions in the lateral aspect that are clean dry and intact. Ely are well placed intact. There is no evidence of darell-incisional erythema or drainage. Robert removed today and a sterile conditions and Steri-Strips applied. The right hip does not reveal any erythema, effusion, ecchymosis, abrasion, laceration, skin breakdown otherwise Neurovascular: Right lower extremity is neurovascularly intact with good sensation strength throughout, calf supple nontender, toes were mobile, +5 strength dorsi and plantar flexion of the foot Musculoskeletal: Right exam limited in order to preserve the patient's surgical fixation of the right hip fracture. I was able to perform subtle internal and external rotation with slight controlled flexion that was performed individually as well with very little discomfort in the right hip. Patient has some mild tenderness palpating around the trochanter and the surgical sites, nothing advanced or worrisome today. Patient's right knee is atraumatic in his nontender and reveals both active and passive motion. Again, right calf is supple and nontender X-rays of the right hip reveal postsurgical changes with screw fixation x3 that has maintained proper alignment when comparing to intraoperative films. There has no evidence of darell implant failure or darell implant fracture. No evidence of hardware loosening. Unable to identify any type of obvious cystic changes or masses in the bone. Official radiology report to follow accordingly and we listed in the patient's chart under imaging. Personal interpretation and documentation regarding today's plain film radiographs performed by myself. Impression: 3 weeks status post percutaneous screw fixation of right subcapital femoral neck fracture Plan: Today 's findings were discussed with the patient. They were educated regarding their diagnosis. Multiple treatment options discussed and agreed upon, including continued parameters of nonweightbearing right lower extremity foot flat to surgical extremity for transfer assistance. Will continue with physical therapy, pain control, completion of DVT prophylaxis, thermal modalities, behavior modification and rest. Will follow up with our cells in 3-4 additional weeks and obtain radiographs once again of the right hip. The patient has no other questions or concerns. Pleased with today 's care. Call sooner if needed. This chart was completed in part utilizing [employer] Speech Voice Recognition Software. Grammatical errors, random [...] documented in this encounter Nursing Notes * Amanda Howard CMA - 01/11/2024 10:38 AM EDT Chief Complaint Patient presents with Post-Op Subcapital fracture of hip, right, closed PERCUTANEOUS FIXATION PROXIMAL FEMORAL FRACTURE, DOS 12/21/23 Pt reports no pain today. Pt sustained injury of Right hip when she fell asleep on kitchen chair and rolled off. Pt is here for post operative check-up and staple removal. documented in this encounter Plan of Treatment Upcoming Encounters Date Type Department Care Team (Late st Contact Info) Description 02/16/2024 10:00 AM EDT Office Visit [facility] [address] [place] [address] Nel Rajan PA-C [address] [place] [address] 02/20/2024 10:00 AM EDT Office Visit Orthopaedics [facility] [address] [place] [address] Yg Pickering PA-C [address] [place] [address] 04/04/2024 9:00 AM EDT Cardiac Studies [facility] [address] [place] [address] [facility] [address] [place] [address] Pending Results Name Type Priority Associated Diagnoses Date /Time XR HIP UNILAT 2-3 VIEWS INCLUDING AP PELVIS Medical Imaging Routine Aftercare following surgery of the musculoskeletal system 01/11/2024 11:42 AM EDT Health Maintenance Due Date Last [...] this encounter Medical Devices Implanted Type Area Pullman Clerk Device Identifier Shelf Expiration Date Model / Serial / Lot Lens 21.0 [facility] - [id number] - [id number] Implanted:Qty: 1 on 01/28/2023 by Christian Woo DO at OR [facility] Lens Right: Eye [employer] 10/12/2025 CNA0T0.210 / [id number] / Denise 6.5mm Partially Threaded (20mm) Screws, Non-Sterile 90mm Implanted:Qty: 2 on 12/21/2023 by Sulaiman Morales MD at OR [facility] Screw Right: Hip DENISE : ORTHOPAEDICS N/A [id number] / N/A / N/A Description:From sterile set on field. No LOT #, Expiration date or serial # present. # [id number] per CDM Team Denise 6.5mm Partially Threaded (20mm) Screws, Non-Sterile 95mm Implanted:Qty: 1 on 12/21/2023 by Sulaiman Morales MD at OR [facility] Screw Right: Hip DENISE N/A [id number] / N/A / N/A Description:From sterile set on field. No LOT #, Expiration date or serial # present. # [id number] per CDM Team Lens 20.5 [facility] - [id number] - [id number] Implanted:Qty: 1 on 01/04/2023 by Christian Woo DO at OR [facility] Left: Eye [employer] 07/15/2025 CNA0T0.205 / [id number] / documented as of this encounter Visit Diagnoses Diagnosis Aftercare following surgery of the musculoskeletal system- Primary Aftercare following surgery of the musculoskeletal system, NEC documented in this encounter Advance Directives Latest [...] the patient have Health Care Power of Transportation Lead? Yes, not currently available Full Code 01/28/2023 [...] Discussed due to patient's condition Care Teams Linux Solaris Administrator Relationship Specialty Start Date End Date Isrrael Bolivar DO [address] [place] [address] [place] [address] PCP - General Family Medicine 11/24/10 documented as of this encounter
--- OUTSIDE RECORDS SUMMARY | 2024-05-05 22:00 | External Medical Summary ---
Author Name Unknown Address Unknown Organization K1F:[facility] - [address] [place] [address] Laboratory Report Ordering Provider Test Date Status GA NIXON 01/27/2024 17:56:00 Final Observation Date Value Abnormality Reference (Units ) Status Troponin T 01/27/2024 17:56:00 18 Above high normal < =14 (ng/L) Final Performing Location [facility] - [address] [place] [address]
--- OUTSIDE RECORDS SUMMARY | 2024-05-05 22:00 | External Medical Summary ---
Author Name Unknown Address Unknown Organization K1F:LABORATORY [facility] - [address] [place] [address] [address] [place] [address] Laboratory Report Ordering Provider Test Date Status GA NIXON 01/27/2024 17:57:00 Final Anticoagulation may affect t esting. Refer to [facility] Test Catalog for a list of effects. Observation Date Value Abnormality Reference (Units ) Status aPTT panel - Platelet poor plasma 01/27/2024 17:57:00 37 21-38 (seconds) Final Performing Location LABORATORY [facility] - [address] [place] [address]
--- OUTSIDE RECORDS SUMMARY | 2024-05-05 22:01 | External Medical Summary ---
Author Name Unknown Address Unknown Organization K1F:LABORATORY [facility] - [address] [place] [address] Laboratory Report Ordering Provider Test Date Status MANSOOR PARRA 12/27/2023 04:57:36 Final Observation Date Value Abnormality Reference (Units ) Status WBC, Total 12/27/2023 04:57:36 6.85 4.00-10.80 (K/uL) Final RBC 12/27/2023 04:57:36 3.88 3.85-5.15 (M/uL) Final Hemoglobin 12/27/2023 04:57:36 9.1 Below low normal 12.0-15.3 (g/dL) Final HCT 12/27/2023 04:57:36 29.9 Below low normal 36.0-45.2 (%) Final MCV 12/27/2023 04:57:36 77.1 81.5-97.5 (fL) Final MCH 12/27/2023 04:57:36 23.5 27.0-34.0 (pg) Final MCHC 12/27/2023 04:57:36 30.4 32.0-36.0 (g/dL) Final RDW 12/27/2023 04:57:36 20.7 11.5-15.5 (%) Final Platelets 12/27/2023 04:57:36 210 140-400 (K/uL) Final MPV 12/27/2023 04:57:36 11.6 6.6-11.1 (fL) Final Nucleated erythrocytes/100 leukocytes [Ratio] in Blood by Automated count 12/27/2023 04:57:36 0 <=0 (/100 WBCs) Final Performing Location [facility] [address] [facility] [place] [address]
--- OUTSIDE RECORDS SUMMARY | 2024-05-05 22:01 | External Medical Summary ---
Author Name Unknown Address Unknown Organization K1F:[facility] - [address] [facility] [place] [address] Laboratory Report Ordering Provider Test Date Status MANSOOR PARRA 12/27/2023 04:57:36 Final Observation Date Value Abnormality Reference (Units ) Status BUN 12/27/2023 04:57:36 19 6-20 (mg/dL) Final Creatinine 12/27/2023 04:57:36 0.7 0.5-1.0 (mg/dL) Final Glomerular filtration rate/1.73 sq M.predicted [Volume Rate/Area] in Serum, Plasma or Blood by Creatinine-based formula (CKD-EPI) 12/27/2023 04:57:36 81 >=60 (mL/min) Final eGFR is calculated based on the CKD-EPI 2020 equation Sodium 12/27/2023 04:57:36 140 135-146 (m mol/L) Final Potassium 12/27/2023 04:57:36 4.4 3.5-5.1 (m mol/L) Final Cl 12/27/2023 04:57:36 98 98-107 (mm ol/L) Final CO2 12/27/2023 04:57:36 33 Above high normal 22 -32 (mmol/L) Final Anion gap 12/27/2023 04:57:36 9 7-15 (mmol /L) Final Glucose 12/27/2023 04:57:36 128 Above high normal 70 -120 (mg/dL) Final Albumin 12/27/2023 04:57:36 3.3 Below low normal 3.8 -5.0 (g/dL) Final AST (Aspartate aminotransferase) 12/27/2023 04:57:36 28 10-35 (U/L) Fin al Alk Phos 12/27/2023 04:57:36 78 35-130 (U/ L) Final Bilirubin, Total 12/27/2023 04:57:36 0.8 <=1 .2 (mg/dL) Final Calcium 12/27/2023 04:57:36 9.1 8.4-10.2 ( mg/dL) Final Protein 12/27/2023 04:57:36 5.1 Below low normal 6.0 -8.3 (g/dL) Final ALT (Alanine aminotransferase) 12/27/2023 04:57:36 23 10-35 (U/L) Kishan gao [facility] Location LABORATORY [facility] - [address] [place], [place] [address]. [place] [address]
--- OUTSIDE RECORDS SUMMARY | 2024-05-05 22:01 | External Medical Summary | Summary of Care ---
Author Name Unknown Organization [facility] Address [address] [place] [address] Phone [phone] Care Team Providers Care Tableman Name Role Phone Julio Bolivarn Robinson Primary Care Provider [phone] Encounter Details Date Type Department Care Team (Late st Contact Info) Description 12/27/2023 Orders Only Lab Mobile Phlebotomy [facility] [address] [facility] [place] [id number] Alvaro Zapata MD [address] [facility] 1 [place] [address] Heart failure, diastolic, due to CAD (HCC)*; DM type 2, not at goal (HCC) Allergies No known active allergiesdocumented as of this encounter (statuses as of 12/27/2023) Medications Medication Sig Dispensed Refills Start Date [...] the evening. 60 Tablet 0 11/12/2023 Active Acetaminophen 325 MG Oral Tablet (Tylenol) Take 3 Tablets by mouth every 8 hours for 3 days, THEN 2 Tablets every 6 hours as needed for Pain, Mild, Pain, Moderate or Fever >38C(100.5F) for up to 3 days. 30 Tablet 0 12/26/2023 Active Ondansetron 4 MG Oral Tablet Disintegrating [...] as of this encounter (statuses as of 12/27/2023) Active Problems Problem Noted Date Diagnosed Date Fall at home 12/19/2023 Leg edema 11/10/2023 PAD (peripheral artery disease) 11/10/2023 Elevated transaminase level 11/10/2023 Coronary artery disease invo lving [place] coronary artery of [place] mart[place] heart without angina pectoris 11/10/2023 Abnormal nuclear [...] as of this encounter (statuses as of 12/27/2023) Resolved Problems Problem Noted Date Diagnosed Date Resolved Date Closed fracture of right femur 12/19/2023 12/26/2023 Closed fracture of right hip 12/19/2023 12/26/2023 Cardiac/pericardial tamponade 11/02/2022 11/05/2022 Hypoxemia 11/24/2018 11/27/2018 Cardiac arrest 11/24/2010 07/14/2011 Ventricular fibrillation 11/24/2010 Acute non Q wave myocardial infarction 11/24/2010 07/14/2011 HTN, goal below 130/80 11/24/201005/11 Overview: Per HTN Protocol #27. documented as of this encounter (statuses as of 12/27/2023) Immunizations Name Administration Dates Next Due Pneumococcal [...] Care Team (Late st Contact Info) Description 01/09/2024 11:00 AM EDT Office Visit Orthopaedics [facility] [address] [place] [address] Yg Pickering PA-C [address] [place] [address] 02/16/2024 10:00 AM EDT Office Visit [facility] [address] [place] [address] Nel Rajan PA-C [address] [place] [address] 04/04/2024 9:00 AM EDT Cardiac Studies Cardiology, [place] [address] [place] [address] [facility] [address] [place] [address] Scheduled Orders Name Type Priority Associated Diagnoses Orde r Schedule CBC Lab Routine Heart failure, diastolic, due to CAD (HCC) DM type 2, not at goal (HCC) Expected: 12/27/2023, Expires: 12/26/2024 COMPREHENSIVE METABOLIC PANEL Lab Routine Heart failure, diastolic, due to CAD (HCC) DM type 2, not at goal (HCC) Expected: 12/27/2023, Expires: 12/26/2024 Health Maintenance Due Date Last Done Comments [...] this encounter Medical Devices Implanted Type Area Biomedical Scientist Device Identifier Shelf Expiration Date Model / Serial / Lot Lens 21.0 [facility] - [id number] - [id number] Implanted:Qty: 1 on 01/28/2023 by Christian Woo DO at OR [facility] Lens Right: Eye [employer] 10/12/2025 CNA0T0.210 / [id number] / Denise 6.5mm Partially Threaded (20mm) Screws, Non-Sterile 90mm Implanted:Qty: 2 on 12/21/2023 by Sulaiman Morales MD at OR [facility] Screw Right: Hip DENISE : ORTHOPAEDICS N/A [id number] / N/A / N/A Description:From sterile set on field. No LOT #, Expiration date or serial # present. WD# [id number] per CDM Team [place] 6.5mm Partially Threaded (20mm) Screws, Non-Sterile 95mm Implanted:Qty: 1 on 12/21/2023 by Sulaiman Morales MD at OR [facility] Screw Right: Hip DENISE N/A [id number] / N/A / N/A Description:From sterile set on field. No LOT #, Expiration date or serial # present. WD# [id number] per CDM Team Lens 20.5 [place] - [id number] 135 - [id number] Implanted:Qty: 1 on 01/04/2023 by Christian Woo DO at OR [facility] Left: Eye [employer] 07/15/2025 CNA0T0.205 / [id number] / documented as of this encounter Visit Diagnoses Diagnosis Heart failure, diastolic, due to CAD (HCC)- Primary Unspecified diastolic heart failure DM type 2, not at goal (HCC) Type II or unspecified type diabetes mellitus without mention of complication, not stated as uncontrolled documented in this encounter Advance Directives Latest [...] the patient have Health Care Power of Hcc Coders? Yes, not currently available Full Code 01/28/2023 [...] Discussed due to patient's condition Care Teams Tableman Relationship Specialty Start Date End Date Isrrael Bolivar DO [address] [place] [phone] PCP - General Family Medicine 11/24/10 documented as of this encounter
--- OUTSIDE RECORDS SUMMARY | 2024-05-05 22:01 | External Medical Summary | Summary of Care ---
Author Name Unknown Organization [facility] Address [address] [place] [address] Phone [phone] Care Team Providers Care Land Leases And Rentals Manager Name Role Phone Isrrael Bolivar Primary Care Provider [phone] Encounter Details Date Type Department Care Team (Late st Contact Info) Description 01/02/2024 Orders Only Lab Mobile Phlebotomy [facility] [address] [facility] [place] [id number] Alvaro Zapata MD [address] [facility] 1 [place] [address] Atrial fibrillation (HCC)*; DM type 2, not at goal (HCC) Allergies No known active allergiesdocumented as of this encounter (statuses as of 01/03/2024) Medications Medication Sig Dispensed Refills Start Date [...] as of this encounter (statuses as of 01/03/2024) Active Problems Problem Noted Date Diagnosed Date Fall at home 12/19/2023 Leg edema 11/10/2023 PAD (peripheral artery disease) 11/10/2023 Elevated transaminase level 11/10/2023 Coronary artery disease invo lving [place] coronary artery of [place] heart without angina pectoris 11/10/2023 Abnormal nuclear [...] as of this encounter (statuses as of 01/03/2024) Resolved Problems Problem Noted Date Diagnosed Date Resolved Date Closed fracture of right femur 12/19/2023 12/26/2023 Closed fracture of right hip 12/19/2023 12/26/2023 Cardiac/pericardial tamponade 11/02/2022 11/05/2022 Hypoxemia 11/24/2018 11/27/2018 Cardiac arrest 11/24/2010 07/14/2011 Ventricular fibrillation 11/24/2010 Acute non Q wave myocardial infarction 11/24/2010 07/14/2011 HTN, goal below 130/80 11/24/201005/11 Overview: Per HTN Protocol #27. documented as of this encounter (statuses as of 01/03/2024) Immunizations Name Administration Dates Next Due Pneumococcal [...] Care Team (Late st Contact Info) Description 01/03/2024 12:20 AM EDT Laboratory Lab Mobile Phlebotomy [facility] [address] [place] [address] Jose Rudolph Mobile [facility] [address] [place] [address] [place] [address] 01/09/2024 11:00 AM EDT Office Visit Orthopaedics [facility] [address] [place] [address] Yg Pickering PA-C [address] [place] [address] 02/16/2024 10:00 AM EDT Office Visit [facility] [address] [place] [address] Nel Rajan PA-C [address] [place] [address] 04/04/2024 9:00 AM EDT Cardiac Studies Cardiology, [facility] [address] [place] [address] [facility] [address] [place] [address] Scheduled Orders Name Type Priority Associated Diagnoses Orde r Schedule CBC Lab Routine Atrial fibrillation (HCC) DM type 2, not at goal (HCC) Expected: 01/03/2024, Expires: 01/01/2025 COMPREHENSIVE METABOLIC PANEL Lab Routine Atrial fibrillation (HCC) DM type 2, not at goal (HCC) Expected: 01/03/2024, Expires: 01/01/2025 Health Maintenance Due Date Last Done Comments [...] this encounter Medical Devices Implanted Type Area Account Executive Device Identifier Shelf Expiration Date Model / Serial / Lot Lens 21.0 [facility] - [id number] - [id number] Implanted:Qty: 1 on 01/28/2023 by Christian Woo DO at OR [facility] Lens Right: Eye [employer] 10/12/2025 CNA0T0.210 / [id number] / [place] 6.5mm Partially Threaded (20mm) Screws, Non-Sterile 90mm Implanted:Qty: 2 on 12/21/2023 by Sulaiman Morales MD at OR [facility] Screw Right: Hip DENISE : ORTHOPAEDICS N/A [id number] / N/A / N/A Description:From sterile set on field. No LOT #, Expiration date or serial # present. # [id number] per CDM Team Denise 6.5mm Partially Threaded (20mm) Screws, Non-Sterile 95mm Implanted:Qty: 1 on 12/21/2023 by Sulaiman Morales MD at OR [facility] Screw Right: Hip DENISE N/A [id number] / N/A / N/A Description:From sterile set on field. No LOT #, Expiration date or serial # present. # [id number] per CDM Team Lens 20.5 [place] - [id number] - [id number] Implanted:Qty: 1 on 01/04/2023 by Christian Woo DO at OR [facility] Left: Eye [employer] 07/15/2025 CNA0T0.205 / [id number] 135 / documented as of this encounter Visit Diagnoses Diagnosis Atrial fibrillation (HCC)- Primary Atrial fibrillation DM type 2, not at goal (HCC) [...] the patient have Health Care Power of Pulper? Yes, not currently available Full Code 01/28/2023 [...] Discussed due to patient's condition Care Teams Land Leases And Rentals Manager Relationship Specialty Start Date End Date Isrrael Bolivar DO [address] [facility] [place] [address] PCP - General Family Medicine 11/24/10 documented as of this encounter
--- OUTSIDE RECORDS SUMMARY | 2024-05-05 22:02 | External Medical Summary ---
Author Name Unknown Address Unknown Organization : Laboratory Report Ordering Provider Test Date Status MIMA BARRERA 12/23/2023 16:35:54 Final Observation Date Value Abnormality Reference (Units ) Status Glucose Point of Care 12/23/2023 16:35:54 185 Above high normal 70-120 (mg/dL) Final Performing Location
--- OUTSIDE RECORDS SUMMARY | 2024-05-05 22:02 | External Medical Summary ---
Author Name Unknown Address Unknown Organization : Laboratory Report Ordering Provider Test Date Status PASCALE CHANCE 12/25/2023 21:28:12 Final Observation Date Value Abnormality Reference (Units ) Status Glucose Point of Care 12/25/2023 21:28:12 147 Above high normal 70-120 (mg/dL) Final Performing Location
--- OUTSIDE RECORDS SUMMARY | 2024-05-05 22:02 | External Medical Summary ---
Author Name Unknown Address Unknown Organization : Laboratory Report Ordering Provider Test Date Status MIMA BARRERA 12/22/2023 21:43:43 Final Observation Date Value Abnormality Reference (Units ) Status Glucose Point of Care 12/22/2023 21:43:43 206 Above high normal 70-120 (mg/dL) Final Performing Location
--- OUTSIDE RECORDS SUMMARY | 2024-05-05 22:02 | External Medical Summary ---
Author Name Unknown Address Unknown Organization K1F:LABORATORY [facility] - [address] [place] [address] Laboratory Report Ordering Provider Test Date Status TYRONE BARRERABRANDEN 12/23/2023 05:05:00 Final Observation Date Value Abnormality Reference (Units ) Status BUN 12/23/2023 05:05:00 30 Above high normal 6-20 (mg/dL) Final Creatinine 12/23/2023 05:05:00 1.0 0.5-1.0 (mg/dL) Final Glomerular filtration rate/1.73 sq M.predicted [Volume Rate/Area] in Serum, Plasma or Blood by Creatinine-based formula (CKD-EPI) 12/23/2023 05:05:00 55 Below low normal >=60 (mL/min) Final eGFR is calculated based on the CKD-EPI 2020 equation Sodium 12/23/2023 05:05:00 143 135-146 (m mol/L) Final Potassium 12/23/2023 05:05:00 3.9 3.5-5.1 (m mol/L) Final Cl 12/23/2023 05:05:00 101 98-107 (mm ol/L) Final CO2 12/23/2023 05:05:00 35 Above high normal 22 -32 (mmol/L) Final Anion gap 12/23/2023 05:05:00 7 7-15 (mmol /L) Final Glucose 12/23/2023 05:05:00 195 Above high normal 70 -120 (mg/dL) Final Calcium 12/23/2023 05:05:00 8.1 Below low normal 8.4 -10.2 (mg/dL) Final Performing Location LABORATORY [facility] - [address] [place] [address]
--- OUTSIDE RECORDS SUMMARY | 2024-05-05 22:02 | External Medical Summary ---
Author Name Unknown Address Unknown Organization K1F:LABORATORY [facility] - [address] [place] [address] Laboratory Report Ordering Provider Test Date Status PETRA VELÁZQUEZ 12/22/2023 04:25:00 Final POD#1 Observation Date Value Abnormality Reference (Units ) Status BUN 12/22/2023 04:25:00 21 Above high normal 6-20 (mg/dL) Final Creatinine 12/22/2023 04:25:00 0.8 0.5-1.0 (mg/dL) Final Glomerular filtration rate/1.73 sq M.predicted [Volume Rate/Area] in Serum, Plasma or Blood by Creatinine-based formula (CKD-EPI) 12/22/2023 04:25:00 74 >=60 (mL/min) Final eGFR is calculated based on the CKD-EPI 2020 equation Sodium 12/22/2023 04:25:00 139 135-146 (m mol/L) Final Potassium 12/22/2023 04:25:00 4.1 3.5-5.1 (m mol/L) Final Cl 12/22/2023 04:25:00 96 Below low normal 98- 107 (mmol/L) Final CO2 12/22/2023 04:25:00 34 Above high normal 22 -32 (mmol/L) Final Anion gap 12/22/2023 04:25:00 9 7-15 (mmol /L) Final Glucose 12/22/2023 04:25:00 174 Above high normal 70 -120 (mg/dL) Final Calcium 12/22/2023 04:25:00 8.2 Below low normal 8.4 -10.2 (mg/dL) Final Performing Location LABORATORY [facility] - [address] [place] [address]
--- OUTSIDE RECORDS SUMMARY | 2024-05-05 22:02 | External Medical Summary ---
Author Name Unknown Address Unknown Organization : Laboratory Report Ordering Provider Test Date Status MIMA BARRERA 12/24/2023 07:35:59 Final Observation Date Value Abnormality Reference (Units ) Status Glucose Point of Care 12/24/2023 07:35:59 150 Above high normal 70-120 (mg/dL) Final Performing Location
--- OUTSIDE RECORDS SUMMARY | 2024-05-05 22:02 | External Medical Summary ---
Author Name Unknown Address Unknown Organization K1F:LABORATORY [facility] - [address] [place] [address] Laboratory Report Ordering Provider Test Date Status MIMA BARRERA 12/25/2023 06:11:00 Final Observation Date Value Abnormality Reference (Units ) Status WBC, Total 12/25/2023 06:11:00 6.36 4.00-10.80 (K/uL) Final RBC 12/25/2023 06:11:00 3.66 3.85-5.15 (M/uL) Final Hemoglobin 12/25/2023 06:11:00 8.9 Below low normal 12.0-15.3 (g/dL) Final HCT 12/25/2023 06:11:00 28.7 Below low normal 36.0-45.2 (%) Final MCV 12/25/2023 06:11:00 78.4 81.5-97.5 (fL) Final MCH 12/25/2023 06:11:00 24.3 27.0-34.0 (pg) Final MCHC 12/25/2023 06:11:00 31.0 32.0-36.0 (g/dL) Final RDW 12/25/2023 06:11:00 20.1 11.5-15.5 (%) Final Platelets 12/25/2023 06:11:00 145 140-400 (K/uL) Final MPV 12/25/2023 06:11:00 11.0 6.6-11.1 (fL) Final Nucleated erythrocytes/100 leukocytes [Ratio] in Blood by Automated count 12/25/2023 06:11:00 0 <=0 (/100 WBCs) Final Performing Location LABORATORY [facility] - [address] [place] [address]
--- OUTSIDE RECORDS SUMMARY | 2024-05-05 22:02 | External Medical Summary ---
Author Name Unknown Address Unknown Organization K1F:LABORATORY [facility] - [address] [place] [address] Laboratory Report Ordering Provider Test Date Status MIMA BARRERA 12/24/2023 04:44:00 Final Observation Date Value Abnormality Reference (Units ) Status WBC, Total 12/24/2023 04:44:00 6.84 4.00-10.80 (K/uL) Final RBC 12/24/2023 04:44:00 3.84 3.85-5.15 (M/uL) Final Hemoglobin 12/24/2023 04:44:00 9.2 Below low normal 12.0-15.3 (g/dL) Final HCT 12/24/2023 04:44:00 30.4 Below low normal 36.0-45.2 (%) Final MCV 12/24/2023 04:44:00 79.2 81.5-97.5 (fL) Final MCH 12/24/2023 04:44:00 24.0 27.0-34.0 (pg) Final MCHC 12/24/2023 04:44:00 30.3 32.0-36.0 (g/dL) Final RDW 12/24/2023 04:44:00 20.2 11.5-15.5 (%) Final Platelets 12/24/2023 04:44:00 137 Below low normal 140-400 (K/uL) Final MPV 12/24/2023 04:44:00 11.8 6.6-11.1 (fL) Final Nucleated erythrocytes/100 leukocytes [Ratio] in Blood by Automated count 12/24/2023 04:44:00 0 <=0 (/100 WBCs) Final Performing Location LABORATORY [facility] - [address] [place] [address]
--- OUTSIDE RECORDS SUMMARY | 2024-05-05 22:02 | External Medical Summary ---
Author Name Unknown Address Unknown Organization K1F:LABORATORY [facility] - [address] [place] [address] Laboratory Report Ordering Provider Test Date Status PASCALE CHANCE 12/26/2023 05:00:00 Final Observation Date Value Abnormality Reference (Units ) Status WBC, Total 12/26/2023 05:00:00 6.22 4.00-10.80 (K/uL) Final RBC 12/26/2023 05:00:00 3.66 3.85-5.15 (M/uL) Final Hemoglobin 12/26/2023 05:00:00 8.7 Below low normal 12.0-15.3 (g/dL) Final HCT 12/26/2023 05:00:00 28.5 Below low normal 36.0-45.2 (%) Final MCV 12/26/2023 05:00:00 77.9 81.5-97.5 (fL) Final MCH 12/26/2023 05:00:00 23.8 27.0-34.0 (pg) Final MCHC 12/26/2023 05:00:00 30.5 32.0-36.0 (g/dL) Final RDW 12/26/2023 05:00:00 20.0 11.5-15.5 (%) Final Platelets 12/26/2023 05:00:00 165 140-400 (K/uL) Final MPV 12/26/2023 05:00:00 11.7 6.6-11.1 (fL) Final Nucleated erythrocytes/100 leukocytes [Ratio] in Blood by Automated count 12/26/2023 05:00:00 0 <=0 (/100 WBCs) Final Performing Location LABORATORY [facility] - [address] [place] [address]
--- OUTSIDE RECORDS SUMMARY | 2024-05-05 22:02 | External Medical Summary ---
Author Name Unknown Address Unknown Organization K1F:LABORATORY [facility] - [address] [place] [address] Laboratory Report Ordering Provider Test Date Status TYRONE BARRERABRANDEN 12/25/2023 06:11:00 Final Observation Date Value Abnormality Reference (Units ) Status BUN 12/25/2023 06:11:00 22 Above high normal 6-20 (mg/dL) Final Creatinine 12/25/2023 06:11:00 0.8 0.5-1.0 (mg/dL) Final Glomerular filtration rate/1.73 sq M.predicted [Volume Rate/Area] in Serum, Plasma or Blood by Creatinine-based formula (CKD-EPI) 12/25/2023 06:11:00 76 >=60 (mL/min) Final eGFR is calculated based on the CKD-EPI 2020 equation Sodium 12/25/2023 06:11:00 140 135-146 (m mol/L) Final Potassium 12/25/2023 06:11:00 3.8 3.5-5.1 (m mol/L) Final Cl 12/25/2023 06:11:00 101 98-107 (mm ol/L) Final CO2 12/25/2023 06:11:00 33 Above high normal 22 -32 (mmol/L) Final Anion gap 12/25/2023 06:11:00 6 Below low normal 7-1 5 (mmol/L) Final Glucose 12/25/2023 06:11:00 167 Above high normal 70 -120 (mg/dL) Final Calcium 12/25/2023 06:11:00 8.9 8.4-10.2 ( mg/dL) Final Performing Location LABORATORY [facility] - [address] [place] [address]
--- OUTSIDE RECORDS SUMMARY | 2024-05-05 22:02 | External Medical Summary ---
Author Name Unknown Address Unknown Organization : Laboratory Report Ordering Provider Test Date Status PASCALE CHANCE 12/25/2023 16:52:35 Final Observation Date Value Abnormality Reference (Units ) Status Glucose Point of Care 12/25/2023 16:52:35 146 Above high normal 70-120 (mg/dL) Final Performing Location
--- OUTSIDE RECORDS SUMMARY | 2024-05-05 22:02 | External Medical Summary ---
Author Name Unknown Address Unknown Organization : Laboratory Report Ordering Provider Test Date Status MIMA BARRERA 12/22/2023 16:44:22 Final Observation Date Value Abnormality Reference (Units ) Status Glucose Point of Care 12/22/2023 16:44:22 185 Above high normal 70-120 (mg/dL) Final Performing Location
--- OUTSIDE RECORDS SUMMARY | 2024-05-05 22:02 | External Medical Summary ---
Author Name Unknown Address Unknown Organization : Laboratory Report Ordering Provider Test Date Status MIMA BARRERA 12/22/2023 11:42:28 Final Observation Date Value Abnormality Reference (Units ) Status Glucose Point of Care 12/22/2023 11:42:28 200 Above high normal 70-120 (mg/dL) Final Performing Location
--- OUTSIDE RECORDS SUMMARY | 2024-05-05 22:02 | External Medical Summary ---
Author Name Unknown Address Unknown Organization K1F:LABORATORY [facility] - [address] [place] [address] Laboratory Report Ordering Provider Test Date Status JAMES JETT 12/25/2023 06:11:00 Final Warfarin Therapy
INR: 2 .0-3.0 conventional anticoagulation
INR: 2.5- 3.5 high intensity anticoagulation Observation Date Value Abnormality Reference (Units ) Status PT 12/25/2023 06:11:00 17.7 Above high normal 11 .6-15.2 (seconds) Final INR 12/25/2023 06:11:00 1.4 Above high normal 0. 8-1.2 Final Performing Location LABORATORY [facility] - [address] [place] [address]
--- OUTSIDE RECORDS SUMMARY | 2024-05-05 22:02 | External Medical Summary ---
Author Name Unknown Address Unknown Organization : Laboratory Report Ordering Provider Test Date Status PASCALE CHANCE 12/25/2023 11:59:33 Final Observation Date Value Abnormality Reference (Units ) Status Glucose Point of Care 12/25/2023 11:59:33 176 Above high normal 70-120 (mg/dL) Final Performing Location
--- OUTSIDE RECORDS SUMMARY | 2024-05-05 22:02 | External Medical Summary ---
Author Name Unknown Address Unknown Organization : Laboratory Report Ordering Provider Test Date Status MIMA BARRERA 12/22/2023 07:35:22 Final Observation Date Value Abnormality Reference (Units ) Status Glucose Point of Care 12/22/2023 07:35:22 162 Above high normal 70-120 (mg/dL) Final Performing Location
--- OUTSIDE RECORDS SUMMARY | 2024-05-05 22:02 | External Medical Summary ---
Author Name Unknown Address Unknown Organization K1F:LABORATORY [facility] - [address] [facility] [place] [address] Laboratory Report Ordering Provider Test Date Status HOLLYMIMA 12/23/2023 05:05:00 Final Observation Date Value Abnormality Reference (Units ) Status SYNC LEUKOCYTES IN BLOOD BY AUTOMATED COUNT 12/23/2023 05:05:00 7.38 4.00-10.80 (K/uL) Final Segs 12/23/2023 05:05:00 62.6 40.0-75.0 (%) Final Lymphs % 12/23/2023 05:05:00 21.0 18.0-42.0 (%) Final Monos 12/23/2023 05:05:00 14.5 Above high normal 1.0-11.0 (%) Final Eosinophils 12/23/2023 05:05:00 1.6 0.0-6.0 (%) Final Basos 12/23/2023 05:05:00 0.0 0.0-2.0 (%) Final Immature Granulocyte, Percent 12/23/2023 05:05:00 0.3 0.0-2.0 (%) Final Absolute Segs 12/23/2023 05:05:00 4.62 1.80-7.70 (K/uL) Final Lymphs, absolute 12/23/2023 05:05:00 1.55 1.00-4.80 (K/ul) Final Monos, Abs 12/23/2023 05:05:00 1.07 0.00-1.10 (K/uL) Final Eos, Abs 12/23/2023 05:05:00 0.12 0.00-0.70 (K/uL) Final Basos, Abs 12/23/2023 05:05:00 0.00 0.00-0.20 (K/uL) Final Immature Granulocytes, Number 12/23/2023 05:05:00 0.02 0.00-0.20 (K/uL) Final Performing Location LABORATORY [facility] - [facility] [address] [place] [address]
--- OUTSIDE RECORDS SUMMARY | 2024-05-05 22:02 | External Medical Summary ---
Author Name Unknown Address Unknown Organization K1F:LABORATORY [facility] - [address] [place] [address] [address] [place] [address] Laboratory Report Ordering Provider Test Date Status MIMA BARRERA 12/23/2023 05:05:00 Final Observation Date Value Abnormality Reference (Units ) Status WBC, Total 12/23/2023 05:05:00 7.38 4.00-10.80 (K/uL) Final RBC 12/23/2023 05:05:00 3.78 3.85-5.15 (M/uL) Final Hemoglobin 12/23/2023 05:05:00 9.1 Below low normal 12.0-15.3 (g/dL) Final HCT 12/23/2023 05:05:00 29.4 Below low normal 36.0-45.2 (%) Final MCV 12/23/2023 05:05:00 77.8 81.5-97.5 (fL) Final MCH 12/23/2023 05:05:00 24.1 27.0-34.0 (pg) Final MCHC 12/23/2023 05:05:00 31.0 32.0-36.0 (g/dL) Final RDW 12/23/2023 05:05:00 19.8 11.5-15.5 (%) Final Platelets 12/23/2023 05:05:00 137 Below low normal 140-400 (K/uL) Final MPV 12/23/2023 05:05:00 11.8 6.6-11.1 (fL) Final Nucleated erythrocytes/100 leukocytes [Ratio] in Blood by Automated count 12/23/2023 05:05:00 0 <=0 (/100 WBCs) Final Performing Location LABORATORY [facility] - [address] [place] [address]
--- OUTSIDE RECORDS SUMMARY | 2024-05-05 22:02 | External Medical Summary ---
Author Name Unknown Address Unknown Organization : Laboratory Report Ordering Provider Test Date Status MIMA BARRERA 12/24/2023 21:20:42 Final Observation Date Value Abnormality Reference (Units ) Status Glucose Point of Care 12/24/2023 21:20:42 137 Above high normal 70-120 (mg/dL) Final Performing Location
--- OUTSIDE RECORDS SUMMARY | 2024-05-05 22:02 | External Medical Summary ---
Author Name Unknown Address Unknown Organization : Laboratory Report Ordering Provider Test Date Status MIMA BARRERA 12/24/2023 16:35:39 Final Observation Date Value Abnormality Reference (Units ) Status Glucose Point of Care 12/24/2023 16:35:39 201 Above high normal 70-120 (mg/dL) Final Performing Location
--- OUTSIDE RECORDS SUMMARY | 2024-05-05 22:02 | External Medical Summary ---
Author Name Unknown Address Unknown Organization K1F:LABORATORY [facility] - [address] [place] [address] Laboratory Report Ordering Provider Test Date Status TYRONE BARRERABRANDEN 12/24/2023 04:44:00 Final Observation Date Value Abnormality Reference (Units ) Status BUN 12/24/2023 04:44:00 26 Above high normal 6-20 (mg/dL) Final Creatinine 12/24/2023 04:44:00 0.7 0.5-1.0 (mg/dL) Final Glomerular filtration rate/1.73 sq M.predicted [Volume Rate/Area] in Serum, Plasma or Blood by Creatinine-based formula (CKD-EPI) 12/24/2023 04:44:00 79 >=60 (mL/min) Final eGFR is calculated based on the CKD-EPI 2020 equation Sodium 12/24/2023 04:44:00 144 135-146 (m mol/L) Final Potassium 12/24/2023 04:44:00 4.2 3.5-5.1 (m mol/L) Final Cl 12/24/2023 04:44:00 102 98-107 (mm ol/L) Final CO2 12/24/2023 04:44:00 34 Above high normal 22 -32 (mmol/L) Final Anion gap 12/24/2023 04:44:00 8 7-15 (mmol /L) Final Glucose 12/24/2023 04:44:00 136 Above high normal 70 -120 (mg/dL) Final Calcium 12/24/2023 04:44:00 8.5 8.4-10.2 ( mg/dL) Final Performing Location LABORATORY [facility] - [address] [place] [address]
--- OUTSIDE RECORDS SUMMARY | 2024-05-05 22:02 | External Medical Summary | Summary of Care ---
Author Name Unknown Organization [facility] Address [address] [place] [address] Phone [phone] Care Team Providers Care Manager Of Training And Development Name Role Phone Isrrael Bolivar Primary Care Provider [phone] Reason for Visit * Reason Comments Fall * Auth/Cert Specialty Diagnoses / Procedures Referred By Albin t Referred To Contact [facility] [address] [place] [address] Phone: [phone] Emergency Medicine [facility] [address] [place] [address] Referral ID Status Reason Start Date Expiration Date Visits Re quested Visits Authorized [id number] Encounter Details Date Type Department Care Team ([facility] Contact Info) Description 12/19/2023 9:46 AM EDT - 12/26/2023 12:29 PM EDT Hospital Encounter [facility] 6th Floor [address] [place] [address] Pepe Chaudhari MD [address] [place] [address] Liyah Saavedra MD [address] [place] [address] [phone] Christian Ortiz MD [address] [place] [address] [phone] Misael Lafleur DO [address] [facility] [place], [place] [phone] Yasmin Ji MD [address] [facility] [place], [place] [phone] Pt Handout (on AVS) Discharge Disposition: IP Rehab Allergies No known active allergiesdocumented as of [...] Tablet by mouth every evening. 0 Active ipratropium-albuter ol (COMBIVENT RESPIMAT) 20-100 MCG/ACT [...] Constipation. 10 Capsule 0 2 Active Fluticasone Furoate-Vilanterol 200-25 MCG/ACT Inhalation Aerosol Powder Breath Activated Inhale 1 Puff by mouth in the morning. 60 Blister Dosing Unit 0 2 Active TRUEplus Lancets 33G 0 2 Active True Metrix Blood Glucose Test In Vitro Strip 0 12/12/202 2 Active True Metrix Meter w/Device Kit 0 2 Active Alendronate Sodium 70 MG Oral Tablet (Fosamax) Take 1 Tablet by mouth once a week. 0 2 Active Apixaban 5 MG Oral Tablet (Eliquis)Indication s:Persistent atrial fibrillation (HCC) TAKE 1 TABLET BY MOUTH 2 times daily 180 Tablet 3 3 Active Triamcinolone Acetonide 0.1 % External Cream (Aristocort) Apply to lower legs twice daily as needed for dry skin 80 g 2 3 Active Aspirin 81 MG Oral Tablet Chewable Take 1 Tablet by mouth in the morning. 0 3 Active Colchicine 0.6 MG Oral Tablet Take 1 Tablet by mouth in the morning. 0 3 Active Omeprazole 20 MG Oral Capsule Delayed Release (PriLOSEC) Take 1 Capsule by mouth in the morning. 0 3 Active Metoprolol Succinate ER 25 MG Oral Tablet Extended Release 24 Hour (Toprol XL) Take 1 Tablet by mouth in the morning. 0 3 Active Torsemide 20 MG Oral Tablet (Demadex)Indication s:HTN, goal below 140/90,Dyslipidemia , goal LDL below 70,Permanent atrial fibrillation (HCC),Chronic diastolic congestive heart failure (HCC),ICD (implantable cardioverter-defibr illator), single, in situ Take 2 Tablets by mouth in the morning and 2 Tablets in the evening. 60 Tablet 0 4 Active Acetaminophen 325 MG Oral Tablet (Tylenol) Take 3 Tablets by mouth every 8 hours for 3 days, THEN 2 Tablets every 6 hours as needed for Pain, Mild, Pain, Moderate or Fever >38C(100.5F) for up to 3 days. 30 Tablet 0 4 01/01/20 24 Active Ondansetron 4 MG Oral Tablet Disintegrating (Zofran) Place 1 Tablet on tongue every 6 hours as needed for Nausea. 20 Tablet 0 4 Active oxyCODONE HCl 5 MG Oral Tablet (Oxy IR) Take 1 Tablet by mouth every 6 hours as needed for Pain, Severe. 5 Tablet 0 4 Active traMADol HCl 25 MG Oral Tablet Take 25 mg by mouth every 6 hours as needed for Pain, Mild. 10 Tablet 0 4 Active Senna-Docusate Sodium 8.6-50 MG Oral Tablet Take 1 Tablet by mouth in the morning. 30 Tablet 1 4 Active Polyethylene Glycol 3350 17 GM Oral Packet (Miralax) Take 1 Packet by mouth 2 times a day as needed (constipation). 14 Each 0 4 Active Pregabalin 100 MG Oral Capsule (Lyrica) Take 1 Capsule by mouth in the morning and 1 Capsule before bedtime. 60 Capsule 1 4 Active Acetaminophen 325 MG Oral Tablet (Tylenol) Take by mouth 3 Tablets in the morning AND 3 Tablets at noon AND 3 Tablets before bedtime. 30 Tablet 0 2 12/26/19 24 Discontinued Pregabalin 150 MG Oral Capsule (Lyrica) Take 1 Capsule by mouth in the morning and 1 Capsule before bedtime. 0 2 12/26/19 24 Discontinued glipiZIDE ER 2.5 MG Oral Tablet Extended Release 24 Hour (glipiZIDE XL) TAKE TWO TABLETS BY MOUTH IN THE MORNING AND TAKE ONE TABLET IN THE EVENING 0 3 12/26/19 24 Discontinued Ondansetron 4 MG Oral Tablet Disintegrating (Zofran) Dissolve 1 Tablet on tongue every 6 hours as needed for Nausea. 20 Tablet 0 4 12/26/19 24 Discontinued oxyCODONE HCl 5 MG Oral Tablet (Oxy IR) Take 1 Tablet by mouth every 6 hours as needed for Pain, Severe. 5 Tablet 0 4 12/26/19 24 Discontinued Pregabalin 100 MG Oral Capsule (Lyrica) Take 1 Capsule by mouth in the morning and 1 Capsule before bedtime. 60 Capsule 1 4 12/26/19 24 Discontinued traMADol HCl 25 MG Oral Tablet Take 25 mg by mouth every 6 hours as needed for Pain, Mild. 10 Tablet 0 4 12/26/19 24 Discontinued documented as of this encounter (statuses as of 12/27/2023) Active Problems Problem Noted Date Diagnosed Date Fall at home 12/19/2023 Leg edema 11/10/2023 PAD (peripheral artery disease) 11/10/2023 Elevated transaminase level 11/10/2023 Coronary artery disease invo lving viejas coronary artery of viejas heart without angina pectoris 11/10/2023 Abnormal nuclear [...] Sign Reading Time Taken Comments Blood Pressure 125/70 12/26/2023 7:23 AM EDT Pulse 85 12/26/2023 10:48 AM EDT Temperature 36 C (96.8 F) 12/26/2023 7:23 AM EDT Respiratory Rate 16 12/26/2023 7:23 AM EDT Oxygen Saturation 93% 12/26/2023 10:48 AM EDT Inhaled Oxygen Concentration - - Weight 65.9 kg (145 lb 4.8 oz) 12/25/2023 6:19 A M EDT Height 165.1 cm (5' 5") 12/21/2023 10:48 AM EDT Body Mass Index 24.18 12/21/2023 10:48 AM EDT documented in this encounter Functional [...] 12/19/2023 documented as of this encounter Discharge Summaries * Yasmin Ji MD - 12/26/2023 11:04 AM EDT Images from the original note were not included. [facility] [address] Admission Date: 12/19/2023 Discharge Date: 12/26/2023 RECOMMENDED TO DO FOR NEXT PROVIDER(S): Repeat BMP and CBC by end of the week, replete potassium, monitor creatinine and check hgb since recent surgery on apixaban REASON(S) FOR MEDICATION CHANGE(S): - bowel regimen - pain regimen - reduce home lyrica 150 BID to 100 BID to prevent somnolence DISPOSITION ON DISCHARGE: rehab: [place] Active Hospital Problems Diagnosis *Principal Diagnosis - Fall at home PAD (peripheral artery disease) ([facility]) Coronary artery disease involving viejas coronary artery of viejas heart without angina pectoris (HFpEF) heart failure with preserved ejection fraction ([facility]) Chronic anticoagulation Atrial fibrillation ([facility]) Type 2 diabetes mellitus with hemoglobin A1c goal of less than 7.0% ([facility]) Resolved Hospital Problems Diagnosis Date Resolved Closed fracture of right femur ([facility]) 12/26/2023 Closed fracture of right hip ([facility]) 12/26/2023 ADMISSION HISTORY & PHYSICAL EXAM (focused): Per Admitting hospitalist: PRESENTING PROBLEM: Fall and right hip pain HPI: 88-year-old woman with history of chronic heart failure with preserved ejection fraction, history of takotsubo cardiomyopathy in 2010, complicated by VFib arrest, moderate tricuspid regurgitation, single-chamber ICD in 2010, CAD, STEMI in 2022, hypertension, hyperlipidemia, permanent AFib, peripheral vascular disease status post left lower extremity embolectomy in December of 2022, pericardial effusion status post pericardiocentesis 10/2022 who presents with fall and right hip pain this morning. Patient reported that she fell out of sleeping chair about 6 a.m. and started having right hip pain. She crowding to her front room in her apartment. Fell again when she tried to get up. Was on the ground for about 3 hours until maintenance people who were working on her apartment building came in and called EMS. She reports only right hip pain, worsened with movement. Denies any headache head trauma, loss of consciousness, dizziness Denies any nausea, vomiting, abdominal pain, diarrhea. Denies any cough, chest pain or shortness of breath. Reports occasional dyspnea on exertion unchanged. Reports she occasionally uses cane. She lives alone in apartment and quite independent. Denies smoking, alcohol or illicit drug use. Reports adherence to her medications. Her granddaughter gives her meds. Called granddaughter and reconciled patient's home medicines Physical Exam Most Recent Vital Signs: BP: 136 mmHg/79 mmHg (12/19/23 1215) Pulse: 80 (12/19/23 1215) Temp: 36.28 C (12/19/23 0950) Temp Summary: Temp Min: 36.3 C (97.3 F) Max: 36.3 C (97.3 F) SpO2: 94 % (12/19/23 1215) O2 flow rate: Supplemental O2 Delivery: Constitutional: no acute distress HEENT: normal: normocephalic, atraumatic; no masses, tenderness, or adenopathy Eyes: sclera and conjunctiva normal CV: Irregularly irregular, S1-S2 Chest: normal respiratory effort, lungs clear to auscultation and percussion Abdomen: normal: soft, bowel sounds normal, no masses, tenderness or organomegaly Musculoskeletal: Tenderness over right hip. +LE (L>R, chronic per patient) Neuro: alert, oriented to person, place, and time, normal mental status exam, sensory normal Psych: normal mood and affect, judgement normal, memory normal HOSPITAL COURSE (focused): Left hp fracture - s/p OR on 12/20 Dr. Morales - no significant complication - NWB to left extremity - DVT ppx with home apixban 5 BID, stable on this for last 48 hours - Follow up in 2 weeks with ortho -DRESSING CHANGES:DAILY dressing changes with dry 4x4s and paper tap. -If the incisions dry bertha may be removed at 10-14 days postoperatively and replaced with Steri-Strips. Thrombocytopenia - resolved Acute blood loss - from fracture and OR - received IV iron x2 in patient - repeat CBC as above Lyrica dose was reduced to 100 BID due to somnolence Pain regimen - standing tylenol for 3 days than as needed - tramadol mild to moderate pain - oxycodone severe pain Bowel regimen - daily senna-docusate- hold for loose stool - miralax TID constipation Operations & Procedures: ORIF- Dr. Morales Complications: none significant Significant Lab and Imaging Results: Recent Results (from the past 24 hour(s)) GLUCOSE METER, POINT OF CARE Collection Time: 12/25/23 11:59 AM Result Value Ref Range Glucose Meter 176 (H) 70 - 120 mg/dL GLUCOSE METER, POINT OF CARE Collection Time: 12/25/23 4:52 PM Result Value Ref Range Glucose Meter 146 (H) 70 - 120 mg/dL GLUCOSE METER, POINT OF CARE Collection Time: 12/25/23 9:28 PM Result Value Ref Range Glucose Meter 147 (H) 70 - 120 mg/dL PT INR Collection Time: 12/26/23 5:00 AM Result Value Ref Range Prothrombin Time 19.1 (H) 11.6 - 15.2 seconds INR 1.6 (H) 0.8 - 1.2 CBC Collection Time: 12/26/23 5:00 AM Result Value Ref Range WBC 6.22 4.00 - 10.80 K/uL RBC 3.66 3.85 - 5.15 M/uL HGB 8.7 (L) 12.0 - 15.3 g/dL HCT 28.5 (L) 36.0 - 45.2 % MCV 77.9 81.5 - 97.5 fL MCH 23.8 27.0 - 34.0 pg MCHC 30.5 32.0 - 36.0 g/dL RDW 20.0 11.5 - 15.5 % PLT 165 140 - 400 K/uL MPV 11.7 6.6 - 11.1 fL nRBCs 0 <=0 /100 WBCs GLUCOSE METER, POINT OF CARE Collection Time: 12/26/23 7:32 AM Result Value Ref Range Glucose Meter 141 (H) 70 - 120 mg/dL } XR INTRA-OP C-ARM CASE Final Result This procedure will not be read by a Radiologist. Please see operative note. XR TIB/FIB 2 VIEWS Final Result PROCEDURE INFORMATION: Exam: XR Right Tibia and Fibula Exam date and time: 12/19/2023 10:13 AM Age: 88 years old Clinical indication: Other: Fall with right leg pain TECHNIQUE: Imaging protocol: Radiologic exam of the right tibia and fibula. Views: 2 views. COMPARISON: CTA ABD AORTA/FEM RUNOFF W CONTRAST 12/23/2022 7:30 PM FINDINGS: Bones/joints: There is diffuse osteopenia. The joint spaces are maintained. No acute fracture is seen. Soft tissues: There is some soft tissue swelling around the ankle IMPRESSION IMPRESSION: No acute fracture is seen THIS DOCUMENT HAS BEEN ELECTRONICALLY SIGNED BY MAKEDA DE LA CRUZ MD XR KNEE 4 OR MORE VIEWS Final Result PROCEDURE INFORMATION: Exam: XR Right Knee Exam date and time: 12/19/2023 10:13 AM Age: 88 years old Clinical indication: Other: Fall with right knee pain TECHNIQUE: Imaging protocol: Radiologic exam of the right knee. Views: 4 or more views. COMPARISON: CTA ABD AORTA/FEM RUNOFF W CONTRAST 12/23/2022 7:30 PM FINDINGS: Bones/joints: There is diffuse osteopenia. The joint spaces are maintained. There is no fracture. No knee joint effusion is seen. There is chondrocalcinosis Soft tissues: Normal. IMPRESSION IMPRESSION: No fracture THIS DOCUMENT HAS BEEN ELECTRONICALLY SIGNED BY MAKEDA DE LA CRUZ MD XR FEMUR MINIMUM 2 VIEWS Final Result PROCEDURE INFORMATION: Exam: XR Right Femur Exam date and time: 12/19/2023 10:13 AM Age: 88 years old Clinical indication: Other: Fall with right leg pain TECHNIQUE: Imaging protocol: Radiologic exam of the right femur. Views: 2 views. COMPARISON: CTA ABD AORTA/FEM RUNOFF W CONTRAST 12/23/2022 7:30 PM FINDINGS: Bones/joints: There is an impacted subcapital fracture on the right. There is diffuse osteopenia. There is hip joint space narrowing superolaterally. The knee joint is maintained Soft tissues: Unremarkable. IMPRESSION IMPRESSION: Impacted right subcapital fracture THIS DOCUMENT HAS BEEN ELECTRONICALLY SIGNED BY MAKEDA DE LA CRUZ MD CT HEAD/BRAIN WO CONTRAST Final Result PROCEDURE INFORMATION: Exam: CT Head Without Contrast Exam date and time: 12/19/2023 10:08 AM Age: 88 years old Clinical indication: Other: Significant trauma with possible severe neurologic injury or head pain TECHNIQUE: Imaging protocol: Computed tomography of the head without contrast. Radiation optimization: All CT scans at this facility use at least one of these dose optimization techniques: automated exposure control; mA and/or kV adjustment per patient size (includes targeted exams where dose is matched to clinical indication); or iterative reconstruction. COMPARISON: CT HEAD/BRAIN WO CONTRAST 03/25/2023 7:28 PM FINDINGS: Brain: There is mild cerebral atrophy. No intracranial hemorrhage is seen. There is no midline shift Cerebral ventricles: The ventricular system is unremarkable Paranasal sinuses: There is mucosal thickening within the sinuses Mastoid air cells: Visualized mastoid air cells are well aerated. Bones/joints: The calvarium is intact Soft tissues: No significant abnormality is identified within the soft tissue IMPRESSION IMPRESSION: No acute abnormality THIS DOCUMENT HAS BEEN ELECTRONICALLY SIGNED BY MAKEDA DE LA CRUZ MD XR CHEST 1 VIEW Final Result PROCEDURE INFORMATION: Exam: XR Chest Exam date and time: 12/19/2023 10:00 AM Age: 88 years old Clinical indication: Other: Trauma, S/P fall TECHNIQUE: Imaging protocol: Radiologic exam of the chest. Views: 1 view. COMPARISON: DX XR CHEST 1 VIEW 11/10/2023 12:22 AM FINDINGS: Tubes, catheters and devices: A cardiac pacemaker is identified Lungs: There is no consolidation Pleural spaces: There is no pleural effusion. No definite pneumothorax is seen Heart/Mediastinum: The heart is not enlarged Bones/joints: Osteopenia is seen. There is degenerative change in the spine. There is an old healed right clavicular fracture IMPRESSION IMPRESSION: No acute abnormality THIS DOCUMENT HAS BEEN ELECTRONICALLY SIGNED BY MAKEDA DE LA CRUZ MD XR PELVIS 1 VIEW Final Result PROCEDURE INFORMATION: Exam: XR Pelvis Exam date and time: 12/19/2023 9:59 AM Age: 88 years old Clinical indication: Other: Trauma, S/P fall TECHNIQUE: Imaging protocol: Radiologic exam of the pelvis. Views: 1 or 2 view. COMPARISON: DX XR PELVIS 1 VIEW 03/25/2023 7:31 PM FINDINGS: Bones/joints: There is diffuse osteopenia. There is an impacted subcapital fracture identified on the right. There is hip joint space narrowing superolaterally on the right. There is degenerative change in the lower lumbar spine. Soft tissues: Unremarkable. Organs: There are calcifications within the pelvis within calcified uterine fibroids IMPRESSION IMPRESSION: Impacted subcapital fracture on the right THIS DOCUMENT HAS BEEN ELECTRONICALLY SIGNED BY MAKEDA DE LA CRUZ MD XR HIP UNILAT 2-3 VIEWS INCLUDING AP PELVIS (Results Pending) XR INTRA-OP C-ARM CASE (Results Pending) Results Pending at Discharge: Lab Results Pending at Discharge: CBC Routine PT INR Routine MEDICATION UPDATES AT DISCHARGE START taking these medications INSTRUCTIONS Nitroglycerin 0.4 MG Subl Commonly known as: Nitrostat 1 Tab Sublingual Every 5 minutes as needed for chest pain ondansetron ODT 4 MG Tbdp Commonly known as: Zofran Place 1 Tablet on tongue every 6 hours as needed for Nausea. oxyCODONE 5 MG immediate release tablet Commonly known as: Oxy IR Take 1 Tablet by mouth every 6 hours as needed for Pain, Severe. Polyethylene Glycol 3350 packet Commonly known as: Miralax Take 1 Packet by mouth 2 times a day as needed (constipation). Senna-Docusate Sodium 8.6-50 MG Tablet Take 1 Tablet by mouth in the morning. traMADol HCl 25 MG Tabs Take 25 mg by mouth every 6 hours as needed for Pain, Mild. CHANGE how you take these medications INSTRUCTIONS Acetaminophen 325 MG Tablet Commonly known as: Tylenol Start taking on: December 26, 2023 What changed: See the new instructions. Take 3 Tablets by mouth every 8 hours for 3 days, THEN 2 Tablets every 6 hours as needed for Pain, Mild, Pain, Moderate or Fever >38C(100.5F) for up to 3 days. Pregabalin 100 MG Capsule Commonly known as: Lyrica What changed: medication strength how much to take Take 1 Capsule by mouth in the morning and 1 Capsule before bedtime. CONTINUE taking these medications INSTRUCTIONS alendronate 70 MG Tablet Commonly known as: Fosamax Notes to patient: Used to prevent or treat soft, brittle bones (osteoporosis) Take 1 Tablet by mouth once a week. Apixaban 5 MG Tablet Commonly known as: Eliquis Notes to patient: Used to treat or prevent clots. Blood Thinner TAKE 1 TABLET BY MOUTH 2 times daily aspirin 81 MG chewable tablet Notes to patient: Used to prevent blood clots from forming Take 1 Tablet by mouth in the morning. atorvaSTATin 40 MG Tablet Commonly known as: Lipitor Notes to patient: Used to lower bad cholesterol, lower triglycerides, raise good cholesterol (HDL),and slow the progression of heart disease Take 1 Tablet by mouth every evening. colchicine 0.6 MG Tablet Notes to patient: Used to treat or prevent gout attacks Take 1 Tablet by mouth in the morning. Docusate Sodium 100 MG Capsule Commonly known as: Colace Notes to patient: Used to treat constipation Take 1 Capsule by mouth 2 times a day as needed for Constipation. fluticasone furoate-vilanterol 200-25 MCG/ACT Aepb Commonly known as: BREO ellipta Notes to patient: Used to treat asthma and COPD (chronic obstructive pulmonary disease). This drug is not to be used to treat intense flare-ups of shortness of breath. Use a rescue inhaler. Be sure to rinse mouth after use Inhale 1 Puff by mouth in the morning. Ipratropium-Albuterol 20-100 MCG/ACT Inhaler Commonly known as: Combivent Respimat Notes to patient: Used to open the airways in lung diseases where spasm may cause breathing problems Inhale 1 Puff by mouth 4 times a day. Jardiance 25 MG Tabs Generic drug: Empagliflozin Notes to patient: Used to control high blood sugar in those with type 2 diabetes Take 1 Tablet by mouth in the morning. omeprazole 20 MG Cpdr Commonly known as: PriLOSEC Notes to patient: Used to treat or prevent GI (gastrointestinal) ulcers, gastroesophageal reflux disease (GERD; acid reflux), heartburn, syndromes caused by lots of stomach acid, and ulcers of the esophagus Take 1 Capsule by mouth in the morning. Silver sulfADIAZINE 1 % cream Commonly known as: Silvadene Notes to patient: Used to avoid or treat skin infections in patients with sánchez Apply topically to affected area daily . Apply to BLE Toprol XL 25 MG Tb24 Generic drug: metoprolol succinate XL Notes to patient: Used to treat seizures and prevent migraine headaches Take 1 Tablet by mouth in the morning. Torsemide 20 MG Tablet Commonly known as: Demadex Notes to patient: Used to treat high blood pressure and get rid of extra fluid Take 2 Tablets by mouth in the morning and 2 Tablets in the evening. Triamcinolone Acetonide 0.1 % cream Commonly known as: Aristocort Notes to patient: Used to treat skin rashes and other skin irritations Apply to lower legs twice daily as needed for dry skin True Metrix Blood Glucose Test Strp Generic drug: Glucose Blood True Metrix Meter w/Device Kit TRUEplus Lancets 33G Misc STOP taking these medications glipiZIDE XL 2.5 MG Tb24 Generic drug: glipiZIDE XL SCHEDULED FOLLOW-UP: Future Appointments Appt Date/Time Provider Department 01/09/2024 11:00 AM Yg Pickering PA-C Orthopaedics [facility] 02/16/2024 10:00 AM Nel Rajan PA-C Cardiology [facility] 04/04/2024 9:00 AM Tracey Shankar Cardiology, [facility] Other Information Indwelling Devices: LINES ALL Duration Peripheral Line Right Antecubital 20 Gauge 7 days Vital Signs (last recorded): Most Recent Systolic BP: 125 mmHg (12/26/23 0723) Most Recent Diastolic BP: 70 mmHg (12/26/23 0723) Pulse: 85 (12/26/23 1048) Resp: 16 (12/26/23722) Most Recent Temperature: 36 C (12/26/23722) Weight: 65.9 kg (145 lb 4.8 oz) (12/25/23 0619) SpO2: 93 % (12/26/23 1048) O2 flow rate: 1 L/MIN (RT titrated pt to room air.) (12/26/23 1037) Allergies: Patient has no known allergies. Activity: as tolerated and NWB to RLE Diet: Orders Placed This Encounter Procedures Heart Healthy Consistent Carbohydrate Diet : Sodium: 2 gm --- Number of Choices: 4 (60 grams) --- Fluid Restriction (ml): None Code Status: Full Code Condition on Discharge: stable Isolation status: None Cognition: normal HOSPITAL CONSULTS ORDERED: CARDIOLOGY CONSULT IP ORTHOPAEDICS CONSULT IP ADULT PHYSICAL THERAPY CONSULT IP ADULT OCCUPATIONAL THERAPY CONSULT IP REFERRING PHYSICIAN: Ref: [id number]] NO STRE[address] ADDRESS AVAILABLE None (office) None (fax) PRIMARY CARE PROVIDER: PCP: Isrrael Bolivar DO [address] [place] [address] (office) [phone] (fax) Note: To contact a physician responsible for this patients hospital care, please call [facility] [phone]. I spent a total of 40 minutes coordinating, documenting, and providing care for this patient excluding time spent in the performance of separately billed services. documented in this encounter Discharge Instructions * Discharge Instr - AVS* Yasmin Ji MD - 12/26/2023 10:53 AM EDT Discharge Date: 12-26-23 Brief summary of inpatient care: Lillian Feliciano was admitted to [facility] on 12/19/2023 with fall from home. The primary diagnosis at discharge was hip fracture s/p repair. Lillian Feliciano is being discharged to [facility]. The Hospital Medicine physician(s) at the time of discharge included: Yasmin Ji MD To reach this Provider Tuesday through Tuesday (8:00 AM to 4:30 PM) for any questions or test results: Call [phone] For after-hours concerns: Call [phone] and have your provider paged, or the provider stitch bonding machine drawer in for the Department of Hospital Medicine paged. Inpatient test results pending: none Operations & Procedures: ORIF hip Code Status: Full Code Advance Directive Documentation: Advance Directive Does the Patient have an Advance Directive? No Diet: Orders Placed This Encounter Procedures Heart Healthy Consistent Carbohydrate Diet : Sodium: 2 gm --- Number of Choices: 4 (60 grams) --- Fluid Restriction (ml): None Activity: As tolerated and As instructed by Physical Therapy Addiebell should continue the following therapies: Physical Therapy and Occupational Therapy Additional Precautions: aspiration Isolation Status: None Mentation at Discharge: normal Future Studies Required: BMP: date - within one week and CBC: date - within one week Respiratory Support at Discharge: Resume Prior to Admission Respiratory Support and none PRIMARY CARE PROVIDER: PCP: Isrrael Bolivar DO [address] [facility] [address] (office) [phone] (fax) Special Instructions: End date for medications including antibiotics and anticoagulants: Continue on home apixaban indefinitely. This is is a intermodal customer service med and will also serve to reduce risk of DVT FRAGILE HIP DISCHARGE INSTRUCTIONS Weight bearing right lower extremity (RLE): non-weight bearing Weight bearing left lower extremity (LLE): as tolerated Wound: Keep clean and dry. Change dressing as needed or reinforce dressing as needed. No tub soaking. Please do not use ointments or topical products on wound, please do not pick or scratch at incision. Please contact the surgical team/office [facility] first with any concerns directly related to surgery (redness, bleeding, large amount of drainage at the incisionsite. WOUND CARE PER ORTHO- -DRESSING CHANGES:DAILY dressing changes with dry 4x4s and paper tap. -If the incisions dry bertha may be removed at 10-14 days postoperatively and replaced with Steri-Strips. DVT ppx with HOME APIXABAN Your injury may be related to Osteoprosis (brittle bones) A balanced skeletal system supports the body and continually builds as well as absorbs bone. The body is always losing (resorbing) and making bone. This process is called remodeling. None-resorbing cells take bone apart. They do this so the mineral can be used to repair an injury or make newbone. Bone-making cells form new bone using calcium and other minerals. These minerals come from the food you eat. When this bone-making system is in balance, the same amount of bone is built and resorbed. An unbalanced system builds too little bone and becomes unsupportive and prone to fracture. Reducing your risk for fractures The most common fracture sites in people with osteoporosis are the wrist, spine, and hip. These fractures are often caused by accidents and falls. All fractures are painful and may limit what you vasile, but hip fractures are very serious. They often need surgery, and it can take months to recover.To reduce your risk for fractures: You should be evaluated and likely treated with medicine for osteoporosis. [facility] utilizes a [facility] (high-risk osteoporosis clinic). Referrals to a [facility] [employer] [employer] who specializes in this typeof care are provided. You should ensure to follow up on these appointments or call your surgeon's office to facilitate scheduling. Get regular exercise. Try walking, swimming, or weight training. Make your home free of tripping hazards (rugs, cords, etc.) to help avoid falls and accidents. Be extra careful not to fall in risky areas, such as icy sidewalks. Ask for help or avoid hazardoussituations. Use of assistive devices such as a walker to assist with balance is encouraged. Here are things to avoid to help prevent osteoporosis: Alcohol. This is toxic to bones. It is a major cause of bone loss. Heavy drinking can cause osteoporosis even if you have no other risk factors. Smoking. This reduces bone mass. Smoking may also interfere with healing from fractures. Inactivity. Not being active makes your bones lose strength and become thinner. Over time, thin bones may break. People who aren't very active are at higher risk for osteoporosis. - Call your primary care physician or seek medical attention if you suffer a fall or develop fever. Please have the patient return to the Emergency Department for any of the following: chest pain, chest pressure, chest tightness, difficulty breathing, or high fever. The patient should not smoke or use tobacco products in any way! {Please sign prescriptions for all controlled substances that the patient may need to take while inthe inpatient facility. Once complete, this statement can be deleted.} documented in this encounter Progress Notes * Sebastian Miguel [facility] - 12/26/2023 10:53 AM EDT PHARMACY DISCHARGE MEDICATION RECONCILIATION REVIEW [address] [address] Name: Lillian Feliciano Location: [facility] 6B-6019/D Date: 12/26/2023 Time: 10:53 AM This discharge medication reconciliation was reviewed by a pharmacist and no corrections or interventions were required. * Yasmin Ji MD - 12/25/2023 3:33 PM EDT Images from the original note were not included. [facility] 6B-6019/D INTERVAL HISTORY: 88yF w/ PMHX significant for chronic HFpEF, history of takotsubo cardiomyopathy in 2010, complicated by VFib arrest, moderate tricuspid regurgitation, single- chamber ICD in 2010, CAD, STEMI in 2022, hypertension, hyperlipidemia, permanent AFib, peripheral vascular disease status post left lower extremity embolectomy in December of 2022 and pericardial effusion status post pericardiocentesis 10/2022 here with fall and left hip fracture. Patient is POD#4 from ORIF of the left hip fracture. Subjective: Patient reports decent pain control She denies nausea, vomiting, early satiety She wants to know HOW LONG she has to be at rehab- she is not thrilled to have to go, support offered. Objective Physical Exam Most Recent Vital Signs: BP: 91 mmHg/51 mmHg (12/25/231426) Pulse: 74 (12/25/23 142) Temp: 36.22 C (12/25/231426) Temp Summary: Temp Min: 35.9 C (96.6 F) Max: 36.2 C (97.2 F) SpO2: 94 % (12/25/231426) O2 flow rate: 1 L/MIN (12/25/231426) Supplemental O2 Delivery: Nasal Cannula (12/25/23 1427) BP 91/51 | Pulse 74 | Temp 36.2 C (97.2 F) (Temporal Artery) | Resp 18 | Ht 1.651 m (5' 5") | Wt 65.9 kg (145 lb 4.8 oz) | SpO2 94% | BMI 24.18 kg/m | BSA 1.74 m Vitals reviewed over last 24 hours General: elderly female sitting upright in chair, bundled in blanket, NAD HEEN: EOMI, no scleral icterus NECK: no stridor, no JVD PULM: CTAB, diminished at bases, kyphotic CVS: RRR ABD: soft, NT, ND +BS, no rebound, no guarding EXT: WWP, trace peripheral edema, Neuro:alert and oriented x3, CN 2-12 grossly intact, no tremor Psych: normal mood and affect Peripheral Line Right Antecubital 20 Gauge (Active) Number of days: 6 STUDIES: Encounter Orders Labs and other studies reviewed with pertinent findings noted below: Recent Results (from the past 24 hour(s)) GLUCOSE METER, POINT OF CARE Collection Time: 12/24/23 4:35 PM Result Value Ref Range Glucose Meter 201 (H) 70 - 120 mg/dL GLUCOSE METER, POINT OF CARE Collection Time: 12/24/23 9:20 PM Result Value Ref Range Glucose Meter 137 (H) 70 - 120 mg/dL PT INR Collection Time: 12/25/23 6:11 AM Result Value Ref Range Prothrombin Time 17.7 (H) 11.6 - 15.2 seconds INR 1.4 (H) 0.8 - 1.2 BASIC METABOLIC PANEL Collection Time: 12/25/23 6:11 AM Result Value Ref Range BUN 22 (H) 6 - 20 mg/dL Creatinine 0.8 0.5 - 1.0 mg/dL Estimated Glomerular Filtration Rate 76 >=60 mL/min Sodium 140 135 - 146 mmol/L Potassium 3.8 3.5 - 5.1 mmol/L Chloride 101 98 - 107 mmol/L CO2 33 (H) 22 - 32 mmol/L Anion Gap 6 (L) 7 - 15 mmol/L Glucose 167 (H) 70 - 120 mg/dL Calcium 8.9 8.4 - 10.2 mg/dL CBC Collection Time: 12/25/23 6:11 AM Result Value Ref Range WBC 6.36 4.00 - 10.80 K/uL RBC 3.66 3.85 - 5.15 M/uL HGB 8.9 (L) 12.0 - 15.3 g/dL HCT 28.7 (L) 36.0 - 45.2 % MCV 78.4 81.5 - 97.5 fL MCH 24.3 27.0 - 34.0 pg MCHC 31.0 32.0 - 36.0 g/dL RDW 20.1 11.5 - 15.5 % PLT 145 140 - 400 K/uL MPV 11.0 6.6 - 11.1 fL nRBCs 0 <=0 /100 WBCs GLUCOSE METER, POINT OF CARE Collection Time: 12/25/23 7:41 AM Result Value Ref Range Glucose Meter 155 (H) 70 - 120 mg/dL GLUCOSE METER, POINT OF CARE Collection Time: 12/25/23 11:59 AM Result Value Ref Range Glucose Meter 176 (H) 70 - 120 mg/dL } Assessment and Plan IMPRESSION : Principal Problem: Fall at home Active Problems: Type 2 diabetes mellitus with hemoglobin A1c goal of less than 7.0% ([facility]) Atrial fibrillation ([facility]) Chronic anticoagulation (HFpEF) heart failure with preserved ejection fraction ([facility]) PAD (peripheral artery disease) ([facility]) Coronary artery disease involving viejas coronary artery of viejas heart without angina pectoris Closed fracture of right femur ([facility]) Closed fracture of right hip ([facility]) Resolved Problems: * No resolved hospital problems. * DIFFERENTIAL AND PLAN: 88yF here with broken left hip s/p ORIF now stable on post op day 4 awaiting insurance authorization for transfer to [facility]. VTE prevention: Restarted Apixaban Cont. PT and OT CM Consult Platelet count improving Ortho, Cards consulted Continue outpatient medications SSI Glucose Results: Lab Results Component Value Date/Time GLUCOSE - [facility] 167 (H) 12/25/2023 06:11 AM GLUCOSE - [facility] 136 (H) 12/24/2023 04:44 AM GLUCOSE - [facility] 195 (H) 12/23/2023 05:05 AM Other home medications as directed. Apixaban (Eliquis) tab 5 mg Acetaminophen (Tylenol) tab 975 mg [START ON 12/26/2023] Acetaminophen (Tylenol) tab 975 mg Docusate Sodium (Colace) cap 100 mg naloxone (Narcan) 0.4 MG/ML inj 0.08 mg ondansetron ODT (Zofran) tab 4 mg OR ondansetron (Zofran) inj 4 mg oxyCODONE (Oxy IR) tab 5 mg traMADol (Ultram) tab 25 mg albuterol-ipratropium (Duoneb) inhalation solution 3 mL aspirin chew tab 81 mg atorvaSTATin (Lipitor) tab 40 mg colchicine tab 0.6 mg dextrose 50% inj 25 mL dextrose 50% inj 50 mL Docusate Sodium (Colace) cap 100 mg fluticasone furoate-vilanterol (BREO ellipta) 200-25 MCG/ACT inhaler 1 Puff glucagon (Glucagen) inj 1 mg Glucose (Glutose 15) 40 % gel 15 g of glucose Glucose (Glutose 15) 40 % gel 30 g of glucose glucose chew tab 16 g insulin aspart (NovoLOG) inj melatonin tab 3 mg metoprolol succinate XL (toPROL XL) tab 25 mg omeprazole (PriLOSEC) cap 20 mg ondansetron (Zofran) inj 4 mg oxyCODONE (Oxy IR) tab 5 mg oxygen GAS Pregabalin (Lyrica) cap 150 mg sodium chloride 0.9 % flush/inj 3 mL Torsemide (Demadex) tab 40 mg traMADol (Ultram) tab 25 mg Orders Placed This Encounter Procedures Heart Healthy Consistent Carbohydrate Diet : Sodium: 2 gm --- Number of Choices: 4 (60 grams) --- Fluid Restriction (ml): None PHARMACOLOGIC VTE PROPHYLAXIS: Apixaban CODE STATUS: Full Code EXPECTED DISCHARGE DATE: 12/26/2023 I spent a total of 45 minutes coordinating, documenting, and providing care for this patient excluding time spent in the performance of separately billed services. * Misael Lafleur DO - 12/24/2023 4:09 PM EDT Images from the original note were not included. [facility] 6B-6019/D [facility] HOSPITAL MEDICINE NOTE Summary Statement: Admission for fall and left hip fracture. PMHX significant for chronic HFpEF, history of takotsubo cardiomyopathy in 2010, complicated by VFib arrest, moderate tricuspid regurgitation, single-chamber ICD in 2010, CAD, STEMI in 2022, hypertension, hyperlipidemia, permanent AFib, peripheral vascular disease status post left lower extremity embolectomy in December of 2022 and pericardial effusion status post pericardiocentesis 10/2022 INTERVAL HISTORY: Chart reviewed. She is POD # 3 for ORIF of the left hip fracture. Her hip pain is controlled at present. Cardiology consulted preop. She has chronic AFib on Apixaban. Monitor shows A fib with a controlled rate. Pt seen with nursing plastics supervisor. She is sitting in the chair. Feels much better today. Appetite is good. No CP or SOB. No emesis. Apixaban (Eliquis) tab 5 mg Acetaminophen (Tylenol) tab 975 mg [START ON 12/26/2023] Acetaminophen (Tylenol) tab 975 mg Docusate Sodium (Colace) cap 100 mg naloxone (Narcan) 0.4 MG/ML inj 0.08 mg ondansetron ODT (Zofran) tab 4 mg OR ondansetron (Zofran) inj 4 mg oxyCODONE (Oxy IR) tab 5 mg traMADol (Ultram) tab 25 mg albuterol-ipratropium (Duoneb) inhalation solution 3 mL aspirin chew tab 81 mg atorvaSTATin (Lipitor) tab 40 mg colchicine tab 0.6 mg dextrose 50% inj 25 mL dextrose 50% inj 50 mL Docusate Sodium (Colace) cap 100 mg fluticasone furoate-vilanterol (BREO ellipta) 200-25 MCG/ACT inhaler 1 Puff glucagon (Glucagen) inj 1 mg Glucose (Glutose 15) 40 % gel 15 g of glucose Glucose (Glutose 15) 40 % gel 30 g of glucose glucose chew tab 16 g insulin aspart (NovoLOG) inj melatonin tab 3 mg metoprolol succinate XL (toPROL XL) tab 25 mg omeprazole (PriLOSEC) cap 20 mg ondansetron (Zofran) inj 4 mg oxyCODONE (Oxy IR) tab 5 mg oxygen GAS Pregabalin (Lyrica) cap 150 mg sodium chloride 0.9 % flush/inj 3 mL Torsemide (Demadex) tab 40 mg traMADol (Ultram) tab 25 mg Objective Physical Exam Most Recent Vital Signs: BP 122/64 | Pulse 69 | Temp 36.1 C (97 F) (Temporal Artery) | Resp 16 | Ht 1.651 m (5' 5") | Wt65.2 kg (143 lb 11.8 oz) | SpO2 99% | BMI 23.92 kg/m | BSA 1.73 m Intake/Output Summary (Last 24 hours) at 12/24/2023 1611 Last data filed at 12/24/2023 1249 Gross per 24 hour Intake 360 ml Output 600 ml Net -240 ml General: Sitting in chair. Alert Eyes: PERRLA, EOMI Lungs: lungs clear to auscultation. Heart: Ireg ireg at 80. . Extremities: no c/c/e Skin: warm, dry Peripheral Line Right Antecubital 20 Gauge (Active) Number of days: 5 STUDIES: Lab results within last 7 days (see chart for full results) Units 12/24/23 0444 12/23/23 0505 12/22/23 0425 Sodium mmol/L 144 143 139 Potassium mmol/L 4.2 3.9 4.1 Chloride mmol/L 102 101 96* CO2 mmol/L 34* 35* 34* BUN mg/dL 26* 30* 21* Creatinine mg/dL 0.7 1.0 0.8 Lab results within last 7 days (see chart for full results) Units 12/24/23 0444 12/23/23 0505 12/22/23 0424 HGB g/dL 9.2* 9.1* 10.1* HCT % 30.4* 29.4* 33.1* WBC K/uL 6.84 7.38 7.08 PLT K/uL 137* 137* 123* Assessment and Plan IMPRESSION : Principal Problem: Fall at home Active Problems: Type 2 diabetes mellitus with hemoglobin A1c goal of less than 7.0% (HCC) Atrial fibrillation (HCC) Chronic anticoagulation (HFpEF) heart failure with preserved ejection fraction (HCC) PAD (peripheral artery disease) (HCC) Coronary artery disease involving viejas coronary artery of viejas heart without angina pectoris Closed fracture of right femur (HCC) Closed fracture of right hip (HCC) Resolved Problems: * No resolved hospital problems. * DIFFERENTIAL AND PLAN: 88-year-old female with chronic HFpEF, history of takotsubo cardiomyopathy in 2010, complicated by VFib arrest, moderate tricuspid regurgitation, single- chamber ICD in 2010, CAD, STEMI in 2022, hypertension, hyperlipidemia, permanent AFib, peripheral vascular disease status post left lower extremity embolectomy in December of 2022, pericardial effusion status post pericardiocentesis 10/2022 admitted for left hip fx. Stable post day #3 VTE prevention: Restarted Apixaban Cont. PT and OT CM Consult Platelet count improving Ortho, Cards consulted Continue outpatient medications SSI Glucose Results: Lab Results Component Value Date/Time GLUCOSE - [facility] 136 (H) 12/24/2023 04:44 AM GLUCOSE - [facility] 195 (H) 12/23/2023 05:05 AM GLUCOSE - [facility] 174 (H) 12/22/2023 04:25 AM GLUCOSE - [facility] 156 (H) 05/30/2020 12:57 PM GLUCOSE - [facility] 146 (H) 05/20/2020 01:53 PM GLUCOSE - [facility] 176 (H) 02/12/2020 01:02 PM GLUCOSE COMMENT Result Recheck 12/02/2010 03:58 PM GLUCOSE METER POCT - [facility] 197 (H) 12/24/2023 11:40 AM GLUCOSE METER POCT - [facility] 150 (H) 12/24/2023 07:35 AM GLUCOSE METER POCT - [facility] 137 (H) 12/23/2023 10:31 PM GLUCOSE METER POCT - [facility] 162 (H) 02/07/2020 07:18 AM GLUCOSE METER POCT - [facility] 132 (H) 02/06/2020 09:03 PM GLUCOSE METER POCT - [facility] 122 (H) 02/06/2020 04:07 PM GLUCOSE POCT - [facility] 246 (H) 11/24/2010 04:38 PM GLUCOSE POCT - [facility] 11/24/2010 04:38 PM QA FLAGS AND/OR RANGES MODIFIED BY DEMOGRAPHIC UPDATE ON 11/27 AT 1609 GLUCOSE POCT - [facility] 313 (H) 11/24/2010 10:15 AM GLUCOSE POCT - [facility] 11/24/2010 10:15 AM QA FLAGS AND/OR RANGES MODIFIED BY DEMOGRAPHIC UPDATE ON 11/27 AT 1609 GLUCOSE, BODY FLUID - [facility] 117 11/02/2022 10:52 AM GLUCOSE, URINE - [facility] 500 (A) 12/19/2023 11:06 AM GLUCOSE, URINE - [facility] >=1000 (A) 12/02/2020 10:05 AM GLUCOSE, URINE - [facility] NEGATIVE 12/02/2017 05:00 PM GLUCOSE, URINE - [facility] NEGATIVE 11/26/2010 05:45 PM GLUCOSE, URINE - [facility] 11/26/2010 05:45 PM QA FLAGS AND/OR RANGES MODIFIED BY DEMOGRAPHIC UPDATE ON 11/27 AT 1609 GLU[facility] 166 (A) 10/12/2022 12:00 AM GLUCOSE-[facility] 154 (A) 11/11/2020 12:00 AM Hemoglobin AIC Results: Lab Results Component Value Date/Time HEMOGLOBIN A1C - [facility] 7.7 (H) 11/10/2023 12:43 AM HEMOGLOBIN A1C - [facility] 7.4 (H) 11/02/2022 06:21 AM HEMOGLOBIN A1C - [facility] 7.5 (H) 01/31/2022 06:46 AM HEMOGLOBIN A1C - [facility] 7.6 (H) 02/04/2020 08:20 AM HEMOGLOBIN A1C - [facility] 7.1 (H) 11/25/2018 05:46 AM HEMOGLOBIN A1C - [facility] 7.2 (H) 12/02/2017 06:33 AM Orders Placed This Encounter Procedures Heart Healthy Consistent Carbohydrate Diet : Sodium: 2 gm --- Number of Choices: 4 (60 grams) --- Fluid Restriction (ml): None Note: To contact a physician responsible for this patients hospital care, please call [facility] [phone]. PHARMACOLOGIC VTE PROPHYLAXIS: Apixaban hEParin CODE STATUS: Full Code EXPECTED DISCHARGE DATE: 12/26/2023 * Misael Lafleur DO - 12/23/2023 9:51 PM EDT Images from the original note were not included. [facility] 6B-[id number]/D [facility] MEDICINE NOTE Summary Statement: Admission for fall and left hip fracture. PMHX significant for chronic HFpEF, history of takotsubo cardiomyopathy in 2010, complicated by VFib arrest, moderate tricuspid regurgitation, single-chamber ICD in 2010, CAD, STEMI in 2022, hypertension, hyperlipidemia, permanent AFib, peripheral vascular disease status post left lower extremity embolectomy in December of 2022 and pericardial effusion status post pericardiocentesis 10/2022 INTERVAL HISTORY: Chart and vital signs reviewed. She is POD # 2 for ORIF of the left hip fracture. Her hip pain is controlled at present. Cardiology on case. She has chronic AFib on Apixaban. Monitor shows A fib witha controlled rate. Pt seen with nursing. She is sitting in the chair. Feels tired. No CP or SOB. Noemesis. Apixaban (Eliquis) tab 5 mg Acetaminophen (Tylenol) tab 975 mg [START ON 12/26/2023] Acetaminophen (Tylenol) tab 975 mg Docusate Sodium (Colace) cap 100 mg naloxone (Narcan) 0.4 MG/ML inj 0.08 mg ondansetron ODT (Zofran) tab 4 mg OR ondansetron (Zofran) inj 4 mg oxyCODONE (Oxy IR) tab 5 mg sodium chloride 0.9 % flush peripheral yanet 3 mL traMADol (Ultram) tab 25 mg albuterol-ipratropium (Duoneb) inhalation solution 3 mL aspirin chew tab 81 mg atorvaSTATin (Lipitor) tab 40 mg colchicine tab 0.6 mg dextrose 50% inj 25 mL dextrose 50% inj 50 mL Docusate Sodium (Colace) cap 100 mg fluticasone furoate-vilanterol (BREO ellipta) 200-25 MCG/ACT inhaler 1 Puff glucagon (Glucagen) inj 1 mg Glucose (Glutose 15) 40 % gel 15 g of glucose Glucose (Glutose 15) 40 % gel 30 g of glucose glucose chew tab 16 g insulin aspart (NovoLOG) inj melatonin tab 3 mg metoprolol succinate XL (toPROL XL) tab 25 mg omeprazole (PriLOSEC) cap 20 mg ondansetron (Zofran) inj 4 mg oxyCODONE (Oxy IR) tab 5 mg oxygen GAS Pregabalin (Lyrica) cap 150 mg sodium chloride 0.9 % flush/inj 3 mL Torsemide (Demadex) tab 40 mg traMADol (Ultram) tab 25 mg Objective Physical Exam Most Recent Vital Signs: BP 129/87 | Pulse 66 | Temp 36.2 C (97.2 F) (Temporal Artery) | Resp 18 | Ht 1.651 m (5' 5") | Wt 65.2 kg (143 lb 11.8 oz) | SpO2 94% | BMI 23.92 kg/m | BSA 1.73 m Intake/Output Summary (Last 24 hours) at 12/23/20232152 Last data filed at 12/23/2023 1803 Gross per 24 hour Intake 240 ml Output 900 ml Net -660 ml General: Sitting in chair. Alert Eyes: PERRLA, EOMI Lungs: lungs clear to auscultation. Heart: Ireg ireg at 88. . Extremities: no c/c/e Skin: warm, dry Peripheral Line Right Antecubital 20 Gauge (Active) Number of days: 4 STUDIES: Lab results within last 7 days (see chart for full results) Units 12/23/23 0505 12/22/23 0425 12/21/23 0424 Sodium mmol/L 143 139 140 Potassium mmol/L 3.9 4.1 4.1 Chloride mmol/L 101 96* 99 CO2 mmol/L 35* 34* 37* BUN mg/dL 30* 21* 16 Creatinine mg/dL 1.0 0.8 0.7 Lab results within last 7 days (see chart for full results) Units 12/23/23 0505 12/22/23 0424 12/21/23 0424 HGB g/dL 9.1* 10.1* 11.1* HCT % 29.4* 33.1* 36.4 WBC K/uL 7.38 7.08 6.41 PLT K/uL 137* 123* 123* Assessment and Plan IMPRESSION : Principal Problem: Fall at home Active Problems: Type 2 diabetes mellitus with hemoglobin A1c goal of less than 7.0% ([facility]) Atrial fibrillation (HCC) Chronic anticoagulation (HFpEF) heart failure with preserved ejection fraction (HCC) PAD (peripheral artery disease) ([facility]) Coronary artery disease involving viejas coronary artery of viejas heart without angina pectoris Closed fracture of right femur (HCC) Closed fracture of right hip ([facility]) Resolved Problems: * No resolved hospital problems. * DIFFERENTIAL AND PLAN: 88-year-old female with chronic HFpEF, history of takotsubo cardiomyopathy in 2010, complicated by VFib arrest, moderate tricuspid regurgitation, single- chamber ICD in 2010, CAD, STEMI in 2022, hypertension, hyperlipidemia, permanent AFib, peripheral vascular disease status post left lower extremity embolectomy in December of 2022, pericardial effusion status post pericardiocentesis 10/2022 admitted for left hip fx. Stable post day #2 VTE prevention: Restart Apixaban PT and OT consults CM Consult Ortho, Cards consulted Continue outpatient medications SSI Glucose Results: Lab Results Component Value Date/Time GLUCOSE - [facility] 195 (H) 12/23/2023 05:05 AM GLUCOSE - [facility] 174 (H) 12/22/2023 04:25 AM GLUCOSE - [facility] 142 (H) 12/21/2023 04:24 AM GLUCOSE - [facility] 156 (H) 05/30/2020 12:57 PM GLUCOSE - [facility] 146 (H) 05/20/2020 01:53 PM GLUCOSE - [facility] 176 (H) 02/12/2020 01:02 PM GLUCOSE COMMENT Result Recheck 12/02/2010 03:58 PM GLUCOSE METER POCT - [facility] 185 (H) 12/23/2023 04:35 PM GLUCOSE METER POCT - [facility] 137 (H) 12/23/2023 12:10 PM GLUCOSE METER POCT - [facility] 170 (H) 12/23/2023 07:12 AM GLUCOSE METER POCT - [facility] 162 (H) 02/07/2020 07:18 AM GLUCOSE METER POCT - [facility] 132 (H) 02/06/2020 09:03 PM GLUCOSE METER POCT - [facility] 122 (H) 02/06/2020 04:07 PM GLUCOSE POCT - [facility] 246 (H) 11/24/2010 04:38 PM GLUCOSE POCT - [facility] 11/24/2010 04:38 PM QA FLAGS AND/OR RANGES MODIFIED BY DEMOGRAPHIC UPDATE ON 11/27 AT 1609 GLUCOSE POCT - [facility] 313 (H) 11/24/2010 10:15 AM GLUCOSE POCT - [facility] 11/24/2010 10:15 AM QA FLAGS AND/OR RANGES MODIFIED BY DEMOGRAPHIC UPDATE ON 11/27 AT 1609 GLUCOSE, BODY FLUID - [facility] 117 11/02/2022 10:52 AM GLUCOSE, URINE - [facility] 500 (A) 12/19/2023 11:06 AM GLUCOSE, URINE - [facility] >=1000 (A) 12/02/2020 10:05 AM GLUCOSE, URINE - [facility] NEGATIVE 12/02/2017 05:00 PM GLUCOSE, URINE - [facility] NEGATIVE 11/26/2010 05:45 PM GLUCOSE, URINE - [facility] 11/26/2010 05:45 PM QA FLAGS AND/OR RANGES MODIFIED BY DEMOGRAPHIC UPDATE ON 11/27 AT 1609 GLUCOSE-[facility]IDE LAB 166 (A) 10/12/2022 12:00 AM GLUCOSE-[facility]IDE LAB 154 (A) 11/11/2020 12:00 AM Orders Placed This Encounter Procedures Regular Diet Note: To contact a physician responsible for this patients hospital care, please call [facility] [phone]. PHARMACOLOGIC VTE PROPHYLAXIS: Apixaban hEParin CODE STATUS: Full Code EXPECTED DISCHARGE DATE: 12/24/2023 * Misael Lafelur DO - 12/22/2023 4:13 PM EDT Images from the original note were not included. Expand All Collapse All [facility] 6B-[id number]/D [facility] MEDICINE NOTE Summary Statement: Admission for fall and left hip fracture. PMHX significant for chronic HFpEF, history of takotsubo cardiomyopathy in 2010, complicated by VFib arrest, moderate tricuspid regurgitation, single-chamber ICD in 2010, CAD, STEMI in 2022, hypertension, hyperlipidemia, permanent AFib, peripheral vascular disease status post left lower extremity embolectomy in December of 2022 and pericardial effusion status post pericardiocentesis 10/2022 INTERVAL HISTORY: Chart,and vital signs reviewed. She is POD # 1 for ORIF of the left hip fracture. Her hip pain is controlled at present. Cardiology on case. She has chronic AFib on Apixaban. Monitor shows A fib witha controlled rate.. Acetaminophen (Tylenol) tab 975 mg [START ON 12/26/2023] Acetaminophen (Tylenol) tab 975 mg Docusate Sodium (Colace) cap 100 mg naloxone (Narcan) 0.4 MG/ML inj 0.08 mg ondansetron ODT (Zofran) tab 4 mg OR ondansetron (Zofran) inj 4 mg oxyCODONE (Oxy IR) tab 5 mg sodium chloride 0.9 % flush peripheral yanet 3 mL traMADol (Ultram) tab 25 mg albuterol-ipratropium (Duoneb) inhalation solution 3 mL aspirin chew tab 81 mg atorvaSTATin (Lipitor) tab 40 mg colchicine tab 0.6 mg dextrose 50% inj 25 mL dextrose 50% inj 50 mL Docusate Sodium (Colace) cap 100 mg fluticasone furoate-vilanterol (BREO ellipta) 200-25 MCG/ACT inhaler 1 Puff glucagon (Glucagen) inj 1 mg Glucose (Glutose 15) 40 % gel 15 g of glucose Glucose (Glutose 15) 40 % gel 30 g of glucose glucose chew tab 16 g insulin aspart (NovoLOG) inj melatonin tab 3 mg metoprolol succinate XL (toPROL XL) tab 25 mg omeprazole (PriLOSEC) cap 20 mg ondansetron (Zofran) inj 4 mg oxyCODONE (Oxy IR) tab 5 mg oxygen GAS Pregabalin (Lyrica) cap 150 mg sodium chloride 0.9 % flush/inj 3 mL Torsemide (Demadex) tab 40 mg traMADol (Ultram) tab 25 mg Objective Physical Exam Most Recent Vital Signs: BP 96/42 | Pulse 84 | Temp 36 C (96.8 F) (Temporal Artery) | Resp 16 | Ht 1.651 m (5' 5") | Wt 61.6 kg (135 lb 12.8 oz) | SpO2 93% | BMI 22.60 kg/m | BSA 1.68 m General: resting in chair. I did not awaken her Lungs: lungs clear to auscultation. Heart: Ireg ireg at 84. . Extremities: no c/c/e Skin: warm, dry Peripheral Line Right Antecubital 20 Gauge (Active) Number of days: 3 STUDIES: Lab results within last 7 days (see chart for full results) Units 12/22/23 04212/21/23 04212/20/23 042 Sodium mmol/L 139 140 144 Potassium mmol/L 4.1 4.1 4.1 Chloride mmol/L 96* 99 101 CO2 mmol/L 34* 37* 34* BUN mg/dL 21* 16 22* Creatinine mg/dL 0.8 0.7 0.9 Lab results within last 7 days (see chart for full results) Units 12/22/23 04212/21/23 0424 12/20/23 1507 HGB g/dL 10.1* 11.1* 11.6* HCT % 33.1* 36.4 39.1 WBC K/uL 7.08 6.41 6.37 PLT K/uL 123* 123* 126* Assessment and Plan IMPRESSION : Principal Problem: Fall at home Active Problems: Type 2 diabetes mellitus with hemoglobin A1c goal of less than 7.0% (HCC) Atrial fibrillation (HCC) Chronic anticoagulation (HFpEF) heart failure with preserved ejection fraction (HCC) PAD (peripheral artery disease) (HCC) Coronary artery disease involving viejas coronary artery of viejas heart without angina pectoris Closed fracture of right femur (HCC) Closed fracture of right hip (HCC) Resolved Problems: * No resolved hospital problems. * DIFFERENTIAL AND PLAN: 88-year-old female with chronic HFpEF, history of takotsubo cardiomyopathy in 2010, complicated by VFib arrest, moderate tricuspid regurgitation, single- chamber ICD in 2010, CAD, STEMI in 2022, hypertension, hyperlipidemia, permanent AFib, peripheral vascular disease status post left lower extremity embolectomy in December of 2022, pericardial effusion status post pericardiocentesis 10/2022 admitted for left hip fx. Stable post day #1 VTE prevention: Restart Apixaban tomorrow PT and OT consults CM Consult Ortho, Cards consulted Continue outpatient medications SSI Glucose Results: Lab Results Component Value Date/Time GLUCOSE - [facility] 174 (H) 12/22/2023 04:25 AM GLUCOSE - [facility] 142 (H) 12/21/2023 04:24 AM GLUCOSE - [facility] 135 (H) 12/20/2023 04:25 AM GLUCOSE - [facility] 156 (H) 05/30/2020 12:57 PM GLUCOSE - [facility] 146 (H) 05/20/2020 01:53 PM GLUCOSE - [facility] 176 (H) 02/12/2020 01:02 PM GLUCOSE COMMENT Result Recheck 12/02/2010 03:58 PM GLUCOSE METER POCT - [facility] 200 (H) 12/22/2023 11:42 AM GLUCOSE METER POCT - [facility] 162 (H) 12/22/2023 07:35 AM GLUCOSE METER POCT - [facility] 219 (H) 12/21/2023 09:53 PM GLUCOSE METER POCT - [facility] 162 (H) 02/07/2020 07:18 AM GLUCOSE METER POCT - [facility] 132 (H) 02/06/2020 09:03 PM GLUCOSE METER POCT - [facility] 122 (H) 02/06/2020 04:07 PM GLUCOSE POCT - [facility] 246 (H) 11/24/2010 04:38 PM GLUCOSE POCT - [facility] 11/24/2010 04:38 PM QA FLAGS AND/OR RANGES MODIFIED BY DEMOGRAPHIC UPDATE ON 11/27 AT 1609 GLUCOSE POCT - [facility] 313 (H) 11/24/2010 10:15 AM GLUCOSE POCT - [facility] 11/24/2010 10:15 AM QA FLAGS AND/OR RANGES MODIFIED BY DEMOGRAPHIC UPDATE ON 11/27 AT 1609 GLUCOSE, BODY FLUID - [facility] 117 11/02/2022 10:52 AM GLUCOSE, URINE - [facility] 500 (A) 12/19/2023 11:06 AM GLUCOSE, URINE - [facility] >=1000 (A) 12/02/2020 10:05 AM GLUCOSE, URINE - [facility] NEGATIVE 12/02/2017 05:00 PM GLUCOSE, URINE - [facility] NEGATIVE 11/26/2010 05:45 PM GLUCOSE, URINE - [facility] 11/26/2010 05:45 PM QA FLAGS AND/OR RANGES MODIFIED BY DEMOGRAPHIC UPDATE ON 11/27 AT 1609 [facility] 166 (A) 10/12/2022 12:00 AM [facility]UCOSE-[facility] 154 (A) 11/11/2020 12:00 AM Note: To contact a physician responsible for this patients hospital care, please call [facility] [phone]. PHARMACOLOGIC VTE PROPHYLAXIS: Apixaban hEParin CODE STATUS: Full Code EXPECTED DISCHARGE DATE: 12/23/2023 * Misael Lafleur DO - 12/21/2023 3:47 PM EDT Images from the original note were not included. [facility] [id number] [facility] HOSPITAL MEDICINE NOTE Summary Statement: Admission for fall and left hip fracture. PMHX significant for chronic HFpEF, history of takotsubo cardiomyopathy in 2010, complicated by VFib arrest, moderate tricuspid regurgitation, single-chamber ICD in 2010, CAD, STEMI in 2022, hypertension, hyperlipidemia, permanent AFib, peripheral vascular disease status post left lower extremity embolectomy in December of 2022 and pericardial effusion status post pericardiocentesis 10/2022 INTERVAL HISTORY: Chart, data and vital signs reviewed. Current medication list reviewed. Patient seen with nursing care team. Her daughter is present. She is scheduled for the OR today for ORIF of the left hip fracture. Her hip pain is controlled at present. Cardiology on case. She has chronic AFib on Apixaban. Monitor shows A fib with a controlled rate.. ROS: The patient denies CP, SOB, Orthopnea, Nausea, Emesis, Diarrhea, PRO or chills. As per HPI and all other systems reviewed and are negative or noncontributory. Acetaminophen (Tylenol) tab 975 mg [START ON 12/26/2023] Acetaminophen (Tylenol) tab 975 mg ceFAZolin in dextrose (Ancef) ivpb 2 g Docusate Sodium (Colace) cap 100 mg isolyte-S pH 7.4 infusion naloxone (Narcan) 0.4 MG/ML inj 0.08 mg ondansetron ODT (Zofran) tab 4 mg OR ondansetron (Zofran) inj 4 mg oxyCODONE (Oxy IR) tab 5 mg sodium chloride 0.9 % flush peripheral yanet 3 mL [START ON 12/22/2023] traMADol (Ultram) tab 25 mg hEParin 25,000 units in 250 mL (aPTT-Cardiac) infusion isolyte-S pH 7.4 infusion Acetaminophen (Tylenol) tab 650 mg albuterol-ipratropium (Duoneb) inhalation solution 3 mL aspirin chew tab 81 mg atorvaSTATin (Lipitor) tab 40 mg colchicine tab 0.6 mg dextrose 50% inj 25 mL dextrose 50% inj 50 mL Docusate Sodium (Colace) cap 100 mg fluticasone furoate-vilanterol (BREO ellipta) 200-25 MCG/ACT inhaler 1 Puff glucagon (Glucagen) inj 1 mg Glucose (Glutose 15) 40 % gel 15 g of glucose Glucose (Glutose 15) 40 % gel 30 g of glucose glucose chew tab 16 g hEParin 1000 UNIT/ML inj 1,000 Units hEParin 1000 UNIT/ML inj 1,900 Units insulin aspart (NovoLOG) inj melatonin tab 3 mg metoprolol succinate XL (toPROL XL) tab 25 mg omeprazole (PriLOSEC) cap 20 mg ondansetron (Zofran) inj 4 mg oxyCODONE (Oxy IR) tab 5 mg oxygen GAS Pregabalin (Lyrica) cap 150 mg sodium chloride 0.9 % flush/inj 3 mL Torsemide (Demadex) tab 40 mg traMADol (Ultram) tab 25 mg Objective Physical Exam Most Recent Vital Signs: BP: 110 mmHg/75 mmHg (12/21/231533) Pulse: 73 (12/21/231533) Temp: 36.22 C (12/21/231533) Temp Summary: Temp Min: 35.1 C (95.2 F) Max: 36.8 C (98.2 F) SpO2: 96 % (12/21/231533) O2 flow rate: 2 L/MIN (12/21/231533) Supplemental O2 Delivery: Nasal Cannula (12/21/231533) General: alert, oriented, elderly female in bed. Eyes: PERRLA, EOMI. Conjunctiva are pink and non-injected. Oropharynx: no exudate, no erythema; membranes are moist Neck: supple, no adenopathy, no JVD Lungs: lungs clear to auscultation. Heart: Ireg ireg at 88. . Abdomen: abdomen soft, non-tender, normal active bowel sounds. Extremities: no c/c/e Neuro exam: No gross focal deficits. Good sensation in the toes Skin: warm, dry Urethral Catheter Coude (Active) Number of days: 2 Peripheral Line Right Antecubital 20 Gauge (Active) Number of days: 2 STUDIES: Lab results within last 7 days (see chart for full results) Units 12/21/23 0424 12/20/23 0425 12/19/23 1036 Sodium mmol/L 140 144 145 Potassium mmol/L 4.1 4.1 3.3* Chloride mmol/L 99 101 100 CO2 mmol/L 37* 34* 34* BUN mg/dL 16 22* 25* Creatinine mg/dL 0.7 0.9 1.1* Lab results within last 7 days (see chart for full results) Units 12/21/23 0424 12/20/23 1507 04/02/24 0425 HGB g/dL 11.1* 11.6* 12.0 HCT % 36.4 39.1 39.5 WBC K/uL 6.41 6.37 7.97 PLT K/uL 123* 126* 140 Assessment and Plan IMPRESSION : Principal Problem: Fall at home Active Problems: Type 2 diabetes mellitus with hemoglobin A1c goal of less than 7.0% (HCC) Atrial fibrillation (HCC) Chronic anticoagulation (HFpEF) heart failure with preserved ejection fraction (HCC) PAD (peripheral artery disease) ([facility]) Coronary artery disease involving viejas coronary artery of viejas heart without angina pectoris Closed fracture of right femur (HCC) Closed fracture of right hip (HCC) Resolved Problems: * No resolved hospital problems. * DIFFERENTIAL AND PLAN: 88-year-old female with chronic HFpEF, history of takotsubo cardiomyopathy in 2010, complicated by VFib arrest, moderate tricuspid regurgitation, single- chamber ICD in 2010, CAD, STEMI in 2022, hypertension, hyperlipidemia, permanent AFib, peripheral vascular disease status post left lower extremity embolectomy in December of 2022, pericardial effusion status post pericardiocentesis 10/2022 admitted for left hip fx. IVF Pre IV antibiotics per Ortho Plan for OR today Continue IV pain meds as needed Trend labs Maintain oxygen saturation above 90%. On 2 liters. Wean as tolerated VTE prevention: Hold Apixaban, heparin IV overlap PT and OT consults CM Consult Ortho, Cards consulted Continue outpatient medications SSI Glucose Results: Lab Results Component Value Date/Time GLUCOSE - [facility] 142 (H) 12/21/2023 04:24 AM GLUCOSE - [facility] 135 (H) 12/20/2023 04:25 AM GLUCOSE - [facility] 127 (H) 12/19/2023 10:36 AM GLUCOSE - [facility] 156 (H) 05/30/2020 12:57 PM GLUCOSE - [facility] 146 (H) 05/20/2020 01:53 PM GLUCOSE - [facility] 176 (H) 02/12/2020 01:02 PM GLUCOSE COMMENT Result Recheck 12/02/2010 03:58 PM GLUCOSE METER POCT - [facility] 133 (H) 12/21/2023 01:57 PM GLUCOSE METER POCT - [facility] 118 12/21/2023 10:51 AM GLUCOSE METER POCT - [facility] 121 (H) 12/21/2023 07:21 AM GLUCOSE METER POCT - [facility] 162 (H) 02/07/2020 07:18 AM GLUCOSE METER POCT - [facility] 132 (H) 02/06/2020 09:03 PM GLUCOSE METER POCT - [facility] 122 (H) 02/06/2020 04:07 PM GLUCOSE POCT - [facility] 246 (H) 11/24/2010 04:38 PM GLUCOSE POCT - [facility] 11/24/2010 04:38 PM QA FLAGS AND/OR RANGES MODIFIED BY DEMOGRAPHIC UPDATE ON 11/27 AT 1609 GLUCOSE POCT - [facility] 313 (H) 11/24/2010 10:15 AM GLUCOSE POCT - [facility] 11/24/2010 10:15 AM QA FLAGS AND/OR RANGES MODIFIED BY DEMOGRAPHIC UPDATE ON 11/27 AT 1609 GLUCOSE, BODY FLUID - [facility] 117 11/02/2022 10:52 AM GLUCOSE, URINE - [facility] 500 (A) 12/19/2023 11:06 AM GLUCOSE, URINE - [facility] >=1000 (A) 12/02/2020 10:05 AM GLUCOSE, URINE - [facility] NEGATIVE 12/02/2017 05:00 PM GLUCOSE, URINE - [facility] NEGATIVE 11/26/2010 05:45 PM GLUCOSE, URINE - [facility] 11/26/2010 05:45 PM QA FLAGS AND/OR RANGES MODIFIED BY DEMOGRAPHIC UPDATE ON 11/27 AT 1609 GLUCOSE-OU[facility]IDE LAB 166 (A) 10/12/2022 12:00 AM GLUCOSE-[facility] 154 (A) 11/11/2020 12:00 AM Note: To contact a physician responsible for this patients hospital care, please call [facility] [phone]. PHARMACOLOGIC VTE PROPHYLAXIS: Apixaban hEParin CODE STATUS: Full Code EXPECTED DISCHARGE DATE: 12/22/2023 I spent a total of 56 minutes coordinating, documenting, and providing care for this patient excluding time spent in the performance of separately billed services. * Christian Ortiz MD - 12/20/2023 2:19 PM EDT Images from the original note were not included. [facility] [id number] INTERVAL HISTORY: 88-year-old woman with history of chronic heart failure with preserved ejection fraction, history of takotsubo cardiomyopathy in 2010, complicated by VFib arrest, moderate tricuspid regurgitation, single-chamber ICD in 2010, CAD, STEMI in 2022, hypertension, hyperlipidemia, permanent AFib, peripheral vascular disease status post left lower extremity embolectomy in December of 2022, pericardial effusion status post pericardiocentesis 10/2022 admitted for left hip fx. Pt reports hip and fatigue Cards has seen pt and given cardiac clearance. Objective Physical Exam Most Recent Vital Signs: BP: 122 mmHg/62 mmHg (12/20/23710) Pulse: 71 (12/20/23710) Temp: 35.89 C (12/20/23710) Temp Summary: Temp Min: 35.9 C (96.6 F) Max: 36.4 C (97.5 F) SpO2: 93 % (12/20/23710) O2 flow rate: 1 L/MIN (12/20/23710) Supplemental O2 Delivery: Nasal Cannula (12/20/23850) Physical Exam Vitals and nursing note reviewed. Exam conducted with a technology program manager present. Constitutional: General: She is not in acute distress. Appearance: Normal appearance. Cardiovascular: Rate and Rhythm: Normal rate and regular rhythm. Pulses: Normal pulses. Heart sounds: Normal heart sounds. No murmur heard. No friction rub. No gallop. Pulmonary: Effort: Pulmonary effort is normal. No respiratory distress. Breath sounds: Normal breath sounds. No wheezing, rhonchi or rales. Abdominal: General: Abdomen is flat. Bowel sounds are normal. Palpations: Abdomen is soft. Musculoskeletal: Right lower leg: No edema. Left lower leg: No edema. Skin: General: Skin is warm and dry. Capillary Refill: Capillary refill takes less than 2 seconds. Neurological: General: No focal deficit present. Mental Status: She is alert and oriented to person, place, and time. Urethral Catheter Coude (Active) Number of days: 1 Peripheral Line Right Antecubital 20 Gauge (Active) Number of days: 1 STUDIES: Encounter Orders Labs and other studies reviewed with pertinent findings noted below: Lab results within last 7 days (see chart for full results) Units 12/20/23 0425 12/19/23 1432 12/19/23 1036 HGB g/dL 12.0 11.7* 12.4 HCT % 39.5 38.1 40.5 WBC K/uL 7.97 9.61 8.14 PLT K/uL 140 153 178 Lab results within last 7 days (see chart for full results) Units 12/20/23 0425 12/19/23 1036 Sodium mmol/L 144 145 Potassium mmol/L 4.1 3.3* Chloride mmol/L 101 100 CO2 mmol/L 34* 34* BUN mg/dL 22* 25* Creatinine mg/dL 0.9 1.1* XR KNEE 4 OR MORE VIEWS Result Date: 12/19/2023 IMPRESSION: No fracture THIS DOCUMENT HAS BEEN ELECTRONICALLY SIGNED BY MAKEDA DE LA CRUZ MD XR FEMUR MINIMUM 2 VIEWS Result Date: 12/19/2023 IMPRESSION: Impacted right subcapital fracture THIS DOCUMENT HAS BEEN ELECTRONICALLY SIGNED BY MAKEDA DE LA CRUZ MD XR TIB/FIB 2 VIEWS Result Date: 12/19/2023 IMPRESSION: No acute fracture is seen THIS DOCUMENT HAS BEEN ELECTRONICALLY SIGNED BY MAKEDA DE LA CRUZ MD XR CHEST 1 VIEW Result Date: 12/19/2023 IMPRESSION: No acute abnormality THIS DOCUMENT HAS BEEN ELECTRONICALLY SIGNED BY MAKEDA DE LA CRUZ MD XR PELVIS 1 VIEW Result Date: 12/19/2023 IMPRESSION: Impacted subcapital fracture on the right THIS DOCUMENT HAS BEEN ELECTRONICALLY SIGNED BY MAKEDA DE LA CRUZ MD CT HEAD/BRAIN WO CONTRAST Result Date: 12/19/2023 IMPRESSION: No acute abnormality THIS DOCUMENT HAS BEEN ELECTRONICALLY SIGNED BY MAKEDA DE LA CRUZ MD Assessment and Plan IMPRESSION : Principal Problem: Fall at home Active Problems: Type 2 diabetes mellitus with hemoglobin A1c goal of less than 7.0% (HCC) Atrial fibrillation (HCC) Chronic anticoagulation (HFpEF) heart failure with preserved ejection fraction (HCC) PAD (peripheral artery disease) (HCC) Coronary artery disease involving viejas coronary artery of viejas heart without angina pectoris Closed fracture of right femur (HCC) Closed fracture of right hip (HCC) Resolved Problems: * No resolved hospital problems. * DIFFERENTIAL AND PLAN: 88-year-old woman with history of chronic heart failure with preserved ejection fraction, history of takotsubo cardiomyopathy in 2010, complicated by VFib arrest, moderate tricuspid regurgitation, single-chamber ICD in 2010, CAD, STEMI in 2022, hypertension, hyperlipidemia, permanent AFib, peripheral vascular disease status post left lower extremity embolectomy in December of 2022, pericardial effusion status post pericardiocentesis 10/2022 admitted for left hip fx. To go to OR tmw. Npo except meds at midngith Hold eliquis Cont heparin drip isolyte-S pH 7.4 infusion Acetaminophen (Tylenol) tab 650 mg albuterol-ipratropium (Duoneb) inhalation solution 3 mL aspirin chew tab 81 mg atorvaSTATin (Lipitor) tab 40 mg colchicine tab 0.6 mg dextrose 50% inj 25 mL dextrose 50% inj 50 mL Docusate Sodium (Colace) cap 100 mg fluticasone furoate-vilanterol (BREO ellipta) 200-25 MCG/ACT inhaler 1 Puff glucagon (Glucagen) inj 1 mg Glucose (Glutose 15) 40 % gel 15 g of glucose Glucose (Glutose 15) 40 % gel 30 g of glucose glucose chew tab 16 g hEParin 1000 UNIT/ML inj 1,000 Units hEParin 1000 UNIT/ML inj 1,900 Units hEParin 25,000 units in 250 mL (aPTT-Cardiac) infusion insulin aspart (NovoLOG) inj melatonin tab 3 mg metoprolol succinate XL (toPROL XL) tab 25 mg omeprazole (PriLOSEC) cap 20 mg ondansetron (Zofran) inj 4 mg oxyCODONE (Oxy IR) tab 5 mg oxygen GAS Pregabalin (Lyrica) cap 150 mg sodium chloride 0.9 % flush peripheral yanet 3 mL sodium chloride 0.9 % flush/inj 3 mL Torsemide (Demadex) tab 40 mg traMADol (Ultram) tab 25 mg PHARMACOLOGIC VTE PROPHYLAXIS: Apixaban hEParin CODE STATUS: Full Code EXPECTED DISCHARGE DATE: 12/22/2023 I spent a total of 52 minutes coordinating, documenting, and providing care for this patient excluding time spent in the performance of separately billed services. documented in this encounter H&P Notes * Sulaiman Morales MD - 12/21/2023 10:40 AM EDT HISTORY & PHYSICAL INTERVAL NOTE [facility]-[address] [id number] History and Physical Update: Name: Lillian Feliciano Location: OR [facility]/OR Date: 12/21/2023 Time: 10:40 AM DATE OF HISTORY AND PHYSICAL: 12/21/2023 BP: 132 mmHg/63 mmHg (12/21/23 1019) Pulse: 68 (12/21/23 1022) Temp: 35.5 C (12/21/23 1019) Temp Summary: Temp Min: 35.1 C (95.2 F) Max: 36.2 C (97.2 F) SpO2: 98 % (12/21/23 102) O2 flow rate: 1 L/MIN (12/21/23 102) Supplemental O2 Delivery: Nasal Cannula (12/21/23 102) I have reviewed the H&P previously performed and examined the patient today. There are no new findings noted. EXAM: Heart: RRR Lungs: CTAB Sulaiman Morales MD [facility] Orthopedic sports medicine * Liyah Saavedra MD - 12/19/2023 1:29 PM EDT Images from the original note were not included. [facility] PRESENTING PROBLEM: Fall and right hip pain HPI: 88-year-old woman with history of chronic heart failure with preserved ejection fraction, history of takotsubo cardiomyopathy in 2010, complicated by VFib arrest, moderate tricuspid regurgitation, single-chamber ICD in 2010, CAD, STEMI in 2022, hypertension, hyperlipidemia, permanent AFib, peripheral vascular disease status post left lower extremity embolectomy in December of 2022, pericardial effusion status post pericardiocentesis 10/2022 who presents with fall and right hip pain this morning. Patient reported that she fell out of sleeping chair about 6 a.m. and started having right hip pain. She crowding to her front room in her apartment. Fell again when she tried to get up. Was on the ground for about 3 hours until maintenance people who were working on her apartment building came in and called EMS. She reports only right hip pain, worsened with movement. Denies any headache head trauma, loss of consciousness, dizziness Denies any nausea, vomiting, abdominal pain, diarrhea. Denies any cough, chest pain or shortness of breath. Reports occasional dyspnea on exertion unchanged. Reports she occasionally uses cane. She lives alone in apartment and quite independent. Denies smoking, alcohol or illicit drug use. Reports adherence to her medications. Her granddaughter gives her meds. Called granddaughter and reconciled patient's home medicines Subjective Patient's past history, medications, and allergies were reviewed. Objective Physical Exam Most Recent Vital Signs: BP: 136 mmHg/79 mmHg (12/19/23 1215) Pulse: 80 (12/19/23 1215) Temp: 36.28 C (12/19/23 0950) Temp Summary: Temp Min: 36.3 C (97.3 F) Max: 36.3 C (97.3 F) SpO2: 94 % (12/19/23 1215) O2 flow rate: Supplemental O2 Delivery: Constitutional: no acute distress HEENT: normal: normocephalic, atraumatic; no masses, tenderness, or adenopathy Eyes: sclera and conjunctiva normal CV: Irregularly irregular, S1-S2 Chest: normal respiratory effort, lungs clear to auscultation and percussion Abdomen: normal: soft, bowel sounds normal, no masses, tenderness or organomegaly Musculoskeletal: Tenderness over right hip. +LE (L>R, chronic per patient) Neuro: alert, oriented to person, place, and time, normal mental status exam, sensory normal Psych: normal mood and affect, judgement normal, memory normal STUDIES: Encounter Orders Labs and other studies reviewed with pertinent findings noted below: Results for orders placed or performed during the hospital encounter of 12/19/23 COMPREHENSIVE METABOLIC PANEL Result Value Ref Range BUN 25 (H) 6 - 20 mg/dL Creatinine 1.1 (H) 0.5 - 1.0 mg/dL Estimated Glomerular Filtration Rate 52 (L) >=60 mL/min Sodium 145 135 - 146 mmol/L Potassium 3.3 (L) 3.5 - 5.1 mmol/L Chloride 100 98 - 107 mmol/L CO2 34 (H) 22 - 32 mmol/L Anion Gap 11 7 - 15 mmol/L Glucose 127 (H) 70 - 120 mg/dL Albumin 4.2 3.8 - 5.0 g/dL AST 20 10 - 35 U/L Alkaline Phosphatase 71 35 - 130 U/L Bilirubin, Total 0.5 <=1.2 mg/dL Calcium 9.6 8.4 - 10.2 mg/dL Protein 6.7 6.0 - 8.3 g/dL ALT 16 10 - 35 U/L TOXICOLOGY, URINE SCREEN W/ CONFIRMATION Result Value Ref Range Amphetamines Screen, U Negative Negative Benzodiazepines Screen, U Negative Negative Cannabinoids Screen, U Negative Negative Cocaine Metabolite Screen, U Negative Negative Fentanyl Screen, U Negative Negative Hydrocodone Screen, U Negative Negative Methadone Metabolite Screen, U Negative Negative Morphine/Codeine Screen, U Negative Negative Oxycodone Screen, U Negative Negative ETHANOL, MEDICAL Result Value Ref Range ETHANOL, MEDICAL Negative Negative LACTATE,WHOLE BLOOD Result Value Ref Range Lactate, Whole Blood 2.1 (H) 0.4 - 2.0 mmol/L PT INR Result Value Ref Range Prothrombin Time 15.5 (H) 11.6 - 15.2 seconds INR 1.2 0.8 - 1.2 URINALYSIS, REFLEX TO MICROSCOPIC Result Value Ref Range Color, Urine Yellow Light Yellow, Yellow, Dark Yellow Clarity, Urine Clear Clear Glucose, Urine 500 (A) Negative mg/dL Bilirubin, Urine Negative Negative Ketone, Urine Negative Negative mg/dL Specific [place], Urine 1.018 1.003 - 1.030 Blood, Urine Negative Negative pH, Urine 6.0 5.0 - 7.5 Units Protein, Urine Negative Negative mg/dL Urobilinogen, Urine 0.2 0.2, 1.0 mg/dL Nitrite, Urine Negative Negative Esterase, Urine Negative Negative Comment, Urine TYPE AND SCREEN Result Value Ref Range ABO A Rh Negative Red Blood Cell Antibody Screen Negative Specimen Expiration Date 12/22/2023 23:59 CK Result Value Ref Range CK 33 26 - 192 U/L CBC Result Value Ref Range WBC 8.14 4.00 - 10.80 K/uL RBC 5.35 3.85 - 5.15 M/uL HGB 12.4 12.0 - 15.3 g/dL HCT 40.5 36.0 - 45.2 % MCV 75.7 81.5 - 97.5 fL MCH 23.2 27.0 - 34.0 pg MCHC 30.6 32.0 - 36.0 g/dL RDW 20.5 11.5 - 15.5 % PLT 178 140 - 400 K/uL MPV 11.4 6.6 - 11.1 fL nRBCs 0 <=0 /100 WBCs DIFFERENTIAL, AUTOMATED Result Value Ref Range WBC 8.14 4.00 - 10.80 K/uL Neutrophils % 57.1 40.0 - 75.0 % Lymphocytes % 29.1 18.0 - 42.0 % Monocytes % 10.7 1.0 - 11.0 % Eosinophils % 2.8 0.0 - 6.0 % Basophils % 0.1 0.0 - 2.0 % Immature Granulocytes % 0.2 0.0 - 2.0 % Absolute Neutrophils 4.64 1.80 - 7.70 K/uL Absolute Lymphocytes 2.37 1.00 - 4.80 K/ul Absolute Monocytes 0.87 0.00 - 1.10 K/uL Absolute Eosinophils 0.23 0.00 - 0.70 K/uL Absolute Basophils 0.01 0.00 - 0.20 K/uL Absolute Immature Granulocytes 0.02 0.00 - 0.20 K/uL INFLUENZA A/B RSV SARS-COV2,PCR Result Value Ref Range SARS-CoV-2 (COVID-19) Result Negative Negative Influenza A PCR Result Negative Negative Influenza B PCR Result Negative Negative RSV PCR Result Negative Negative DIFFERENTIAL, TECHNOLOGIST REVIEW Result Value Ref Range Ovalocytes Moderate (A) None Seen XR TIB/FIB 2 VIEWS Final Result PROCEDURE INFORMATION: Exam: XR Right Tibia and Fibula Exam date and time: 12/19/2023 10:13 AM Age: 88 years old Clinical indication: Other: Fall with right leg pain TECHNIQUE: Imaging protocol: Radiologic exam of the right tibia and fibula. Views: 2 views. COMPARISON: CTA ABD AORTA/FEM RUNOFF W CONTRAST 12/23/2022 7:30 PM FINDINGS: Bones/joints: There is diffuse osteopenia. The joint spaces are maintained. No acute fracture is seen. Soft tissues: There is some soft tissue swelling around the ankle IMPRESSION IMPRESSION: No acute fracture is seen THIS DOCUMENT HAS BEEN ELECTRONICALLY SIGNED BY MAKEDA DE LA CRUZ MD XR KNEE 4 OR MORE VIEWS Final Result PROCEDURE INFORMATION: Exam: XR Right Knee Exam date and time: 12/19/2023 10:13 AM Age: 88 years old Clinical indication: Other: Fall with right knee pain TECHNIQUE: Imaging protocol: Radiologic exam of the right knee. Views: 4 or more views. COMPARISON: CTA ABD AORTA/FEM RUNOFF W CONTRAST 12/23/2022 7:30 PM FINDINGS: Bones/joints: There is diffuse osteopenia. The joint spaces are maintained. There is no fracture. No knee joint effusion is seen. There is chondrocalcinosis Soft tissues: Normal. IMPRESSION IMPRESSION: No fracture THIS DOCUMENT HAS BEEN ELECTRONICALLY SIGNED BY MAKEDA DE LA CRUZ MD XR FEMUR MINIMUM 2 VIEWS Final Result PROCEDURE INFORMATION: Exam: XR Right Femur Exam date and time: 12/19/2023 10:13 AM Age: 88 years old Clinical indication: Other: Fall with right leg pain TECHNIQUE: Imaging protocol: Radiologic exam of the right femur. Views: 2 views. COMPARISON: CTA ABD AORTA/FEM RUNOFF W CONTRAST 12/23/2022 7:30 PM FINDINGS: Bones/joints: There is an impacted subcapital fracture on the right. There is diffuse osteopenia. There is hip joint space narrowing superolaterally. The knee joint is maintained Soft tissues: Unremarkable. IMPRESSION IMPRESSION: Impacted right subcapital fracture THIS DOCUMENT HAS BEEN ELECTRONICALLY SIGNED BY MAKEDA DE LA CRUZ MD CT HEAD/BRAIN WO CONTRAST Final Result PROCEDURE INFORMATION: Exam: CT Head Without Contrast Exam date and time: 12/19/2023 10:08 AM Age: 88 years old Clinical indication: Other: Significant trauma with possible severe neurologic injury or head pain TECHNIQUE: Imaging protocol: Computed tomography of the head without contrast. Radiation optimization: All CT scans at this facility use at least one of these dose optimization techniques: automated exposure control; mA and/or kV adjustment per patient size (includes targeted exams where dose is matched to clinical indication); or iterative reconstruction. COMPARISON: CT HEAD/BRAIN WO CONTRAST 03/25/2023 7:28 PM FINDINGS: Brain: There is mild cerebral atrophy. No intracranial hemorrhage is seen. There is no midline shift Cerebral ventricles: The ventricular system is unremarkable Paranasal sinuses: There is mucosal thickening within the sinuses Mastoid air cells: Visualized mastoid air cells are well aerated. Bones/joints: The calvarium is intact Soft tissues: No significant abnormality is identified within the soft tissue IMPRESSION IMPRESSION: No acute abnormality THIS DOCUMENT HAS BEEN ELECTRONICALLY SIGNED BY MAKEDA DE LA CRUZ MD XR CHEST 1 VIEW Final Result PROCEDURE INFORMATION: Exam: XR Chest Exam date and time: 12/19/2023 10:00 AM Age: 88 years old Clinical indication: Other: Trauma, S/P fall TECHNIQUE: Imaging protocol: Radiologic exam of the chest. Views: 1 view. COMPARISON: DX XR CHEST 1 VIEW 11/10/2023 12:22 AM FINDINGS: Tubes, catheters and devices: A cardiac pacemaker is identified Lungs: There is no consolidation Pleural spaces: There is no pleural effusion. No definite pneumothorax is seen Heart/Mediastinum: The heart is not enlarged Bones/joints: Osteopenia is seen. There is degenerative change in the spine. There is an old healed right clavicular fracture IMPRESSION IMPRESSION: No acute abnormality THIS DOCUMENT HAS BEEN ELECTRONICALLY SIGNED BY MAKEDA DE LA CRUZ MD XR PELVIS 1 VIEW Final Result PROCEDURE INFORMATION: Exam: XR Pelvis Exam date and time: 12/19/2023 9:59 AM Age: 88 years old Clinical indication: Other: Trauma, S/P fall TECHNIQUE: Imaging protocol: Radiologic exam of the pelvis. Views: 1 or 2 view. COMPARISON: DX XR PELVIS 1 VIEW 03/25/2023 7:31 PM FINDINGS: Bones/joints: There is diffuse osteopenia. There is an impacted subcapital fracture identified on the right. There is hip joint space narrowing superolaterally on the right. There is degenerative change in the lower lumbar spine. Soft tissues: Unremarkable. Organs: There are calcifications within the pelvis within calcified uterine fibroids IMPRESSION IMPRESSION: Impacted subcapital fracture on the right THIS DOCUMENT HAS BEEN ELECTRONICALLY SIGNED BY MAKEDA DE LA CRUZ MD XR HIP UNILAT 2-3 VIEWS INCLUDING AP PELVIS (Results Pending) Assessment and Plan IMPRESSION: Principal Problem: Fall at home Active Problems: Type 2 diabetes mellitus with hemoglobin A1c goal of less than 7.0% (HCC) Atrial fibrillation (HCC) Chronic anticoagulation (HFpEF) heart failure with preserved ejection fraction (HCC) PAD (peripheral artery disease) (HCC) Coronary artery disease involving viejas coronary artery of viejas heart without angina pectoris Closed fracture of right femur (HCC) Resolved Problems: * No resolved hospital problems. * DIFFERENTIAL AND PLAN: Patient fell at home and developed right hip pain. Labs today notable for potassium of 3.3, creatinine of 1.1, lactate of 2.1 X-rays of femur and pelvis noted impacted subcapital fracture of the right hip Fall precautions Orthopedic consult. Considering patient was on Eliquis, last dose yesterday. We will hold off Eliquis for now. We will follow up ortho was plan for possible surgery. In the meantime, will keep patient on heparin drip considering her cardiovascular history, VTE riskfactors/PVD with h/o embolectomy until it is clear when patient will have surgery. Considering her extensive cardiac history, will get Cardiology evaluation prior to OR Pain control. Replete hypokalemia Hold oral antidiabetic agent. Insulin sliding scale for now Continue home p.o. medicines for now. PHARMACOLOGIC VTE PROPHYLAXIS:Apixaban CODE STATUS: Prior EXPECTED DISCHARGE DATE: No information available I spent a total of 75 minutes coordinating, documenting, and providing care for this patient excluding time spent in the performance of separately billed services. documented in this encounter Consult Notes * Solomon Jensen, PT - 12/22/2023 12:57 PM EDTAssociated Order(s): ADULT PHYSICAL THERAPY CONSULT IP GENERAL EVALUATION - Physical Therapy [address] [address] Name: Lillian Feliciano Location: [facility] [id number] Date: 12/22/2023 Time: 1:49 PM Lillian Feliciano is a/an 88 year old female. Patient Status: Inpatient Insurance: Payor: [employer] MEDICARE ADVANTAGE Plan: PAIEON PPO Product Type: *No Product type* Payor: [employer] [place] Plan: [employer]find [facility] Product Type: HMO Patient Seen: at bedside, nursing cleared patient for therapy Patient Identified By: Name, ID Band and Date Diagnosis: Gait dysfunction, weakness, s/p percutaneous screw fixation of Right nondisplaced subcapital femoral neck fracture (12/22/23 1257) Status of treatment: Evaluation completed (12/22/23 1257) Orders: PT evaluation and treatment (12/22/23 1257) Weight Bearing Status: Non-weight bearing;RLE;Weight bearing as tolerated;RUE;LUE;LLE (flat foot NWB R LE) (12/22/23 1257) Precautions: Alarms;Falls;Oxygen;Safety (12/22/23 1257) Total Treatment Time--free text: 33 minutes (12/22/23 1257) HPI: Per chart review: "88-year-old woman with history of chronic heart failure with preserved ejection fraction, history of takotsubo cardiomyopathy in 2010, complicated by VFib arrest, moderate tricuspid regurgitation, single-chamber ICD in 2010, CAD, STEMI in 2022, hypertension, hyperlipidemia, permanent AFib, peripheral vascular disease status post left lower extremity embolectomy in December, pericardial effusion status post pericardiocentesis 10/2022 who presents with fall and right hip pain this morning. Patient reported that she fell out of sleeping chair about 6 a.m. and started having right hip pain. She crowding to her front room in her apartment. Fell again when she tried to get up. Was on the ground for about 3 hours until maintenance people who were working on her apartment building came in and called EMS. She reports only right hip pain, worsened with movement. Denies any headache head trauma, loss of consciousness, dizziness Denies any nausea, vomiting, abdominal pain, diarrhea. Denies any cough, chest pain or shortness of breath. Reports occasional dyspnea on exertion unchanged. Reports she occasionally uses cane. She lives alone in apartment and quite independent. Denies smoking, alcohol or illicit drug use. Reports adherence to her medications. Her granddaughter gives her meds. Called granddaughter and reconciled patient's home medicines" Past Medical History: Past Medical History: Diagnosis Date A-fib ([facility]) Asthma, mild persistent Critical limb ischemia of left lower extremity with autologous bypass graft ([facility]) 12/24/2022 DM type 2, goal A1c below 7 Hyperlipidemia Hypertension ICD (implantable cardioverter-defibrillator) in place Myocardial infarction acute (HCC) 11/24/2010 Ventricular fibrillation arrest, Possible Takotsubo syndrome Nonischemic cardiomyopathy (HCC) Takotsubo cardiomyopathy Past Surgical History: Past Surgical History: Procedure Laterality Date CORONARY ANGIOGRAPHY W/LEFT HEART CATH 12/04/2010 CORONARY ANGIOGRAPHY W/LEFT HEART CATH performed by TEODORO LEWIS at [facility] CORONARY ANGIOGRAPHY W/LEFT HEART CATH Right 11/01/2022 CORONARY ANGIOGRAPHY W/LEFT HEART CATH performed by Kaden Armstrong DO at [facility] ELECTROPHYSIOLOGY EVALUATION 12/07/2010 ICD IMPLANT DEVICE/LEADS TESTING performed by RAPHAEL MITTAL at [facility] INFORMATION Bilateral tubal INSERT/REPLACE DEFIBRILLATOR W/TRANSVERSE LEAD(S) Left 11/27/2010 Medtronic single chamber PERICARDIOCENT INTL/HOSP ONLY Left 11/02/2022 PERICARDIOCENTESIS performed by Dinora Bingham MD at [facility] REMOVE CATARACT, INSERT LENS PROSTH Left 01/04/2023 EXTRACAPSULAR CATARACT REMOVAL WITH INTRAOCULAR LENS performed by Christian Woo DO at OR [facility] REMOVE CATARACT, INSERT LENS PROSTH Right 01/28/2023 EXTRACAPSULAR CATARACT REMOVAL WITH INTRAOCULAR LENS performed by Christian Woo DO at OR [facility] SYNTH BYPASS, FEMORAL-POP Left 12/23/2022 BYPASS GRAFT OTHER THAN VEIN FEMORAL POPLITEAL performed by Misael Reese MD at OR [facility] THROMB ART/VENOUS GRAFT W/REVI Left 12/23/2022 THROMBECTOMY ARTERIAL VENOUS GRAFT WITH REVISION performed by Misael Reese MD at OR [facility] Subjective: Pt expressed willingness to participate in PT consult. Social History/Disposition Lives with: Alone (12/22/23 1257) Assistance available: Yes (intermittent from spouse) (12/22/23 1257) Dwelling type: Apartment (12/22/23 1257) Entry steps: None (12/22/23 1257) Inside steps: Elevator (elevator to access apartment; 0 inside apartment) (12/22/23 1257) Bedroom location: 1st floor (12/22/23 1257) Bath location: 1st floor full bath (12/22/23 1257) Prior Level of Function Reported by: Patient;Family (daughter) (12/22/23 1257) Ambulation: Ambulatory without device;Ambulatory with device (12/22/23 1257) Ambulatory Device: Cane (occasionally) (12/22/23 1257) Devices at home: Grab bars;Straight cane;Bedside commode;Rolling walker (cn borrow a rolling walker) (12/22/23 1257) Observations Consciousness: Alert (12/22/23 1257) Orientation: Oriented times 4 (12/22/23 1257) Psychosocial: Patient can communicate basic needs;Patient can converse in a social setting (12/22/23 1257) Other Findings: Yes (12/22/23 1257) Findings: Light touch sensation;Coordination;Tone (12/22/23 1257) Light Touch Sensation Results: Intact;LLE;RLE (12/22/23 1257) Coordination Results: Intact;LLE;RLE (12/22/23 1257) Tone Results: Intact;LLE;RLE (12/22/23 1257) Sitting Posture: Forward head;Rounded shoulders (12/22/23 1257) Standing Posture: Forward head;Rounded shoulders (12/22/231256) Pain: No complaints of pain Range of Motion Range of Motion: WFL, except (AAROM R hip: flex ~50 degrees, abduction ~10 degrees, IR/ER/ext/adduction neutral; see OT for B UE) (12/22/231256) Strength Assessment Strength Assessment: Deficits noted (12/22/231256) WNL, except: LLE;RLE (12/22/231256) LLE: 4+/5;Hip;Knee;Ankle (12/22/231256) RLE: 2+/5;Hip;4/5;Knee;3/5;Ankle (at least 3/5 ankle PF (resisted testing not performed due to flatfoot NWB R LE), 4+/5 DF) (12/22/231256) P.T. Bed Mobility Sit-Supine: Moderate Assistance (12/22/231256) Transfers Sit-Stand: Moderate Assistance (12/22/231256) Stand-Sit: Moderate Assistance (12/22/231256) W/C-Bed/Mat: Moderate Assistance (12/22/231256) Ambulation: Distance ambulated (feet): 3 Assistive Device: Rolling walker Assist: Moderate Assistance 2 Gait Characteristics: Decreased speed, Decreased step length, Unsteady, Increased trunk sway, NWB to flat foot NWB R LE maintained t/o PT session, not safe to transfer or amb w/o assistance. Balance Sit (Static): Good (12/22/231256) Sit (Dynamic): Good (12/22/231256) Stand (Static): Poor (12/22/231256) Stand (Dynamic): Poor (12/22/231256) Patient and or Family Goal(s): to get well and to return home Patient Education Review of Precautions: Safety;Weight Bearing Status;Fall (no amb or transfers w/o nursing assist) (12/22/231256) Safety Awareness: Patient verbalizes insight of current deficits;Patient demonstrates carryover of insight during functional tasks;Patient can communicate basic needs;Needs cueing supervision (12/22/231256) Preferred learning method: Combination (12/22/231256) Barriers to learning: Medical Status;Hearing (hard of hearing) (12/22/23 1257) Method of Education: Verbalized to patient;Demonstrated to patient;Verbalized to family/caregiver;Patient demonstrated task (12/22/23 1257) Topic of Education: Weight bearing restrictions, Safety with mobility, Goals/plan of care, Use of assistive device, and Fall prevention Method of Education: Verbal discussion and explanation provided to pt and daughter: verbalized understanding and or agreement of this information Demonstrated the above task to pt and daughter: verbalized understanding and or agreement of this information Extremity Exercise Supine: Hip;Knee;Ankle;Isometrics (reclined in recliner) (12/22/23 1257) Hip : Right;Abduction;1 set of 10 (AA) (12/22/23 1257) Knee : Right;1 set of 10;SAQ;Heel slide (AA heel slides, active SAQ) (12/22/23 1257) Ankle: Bilateral LE;1 set of 10;Dorsiflexion;Plantar flexion (12/22/23 1257) Isometrics: Bilateral LE;1 set of 10;Quad sets;Glute sets (12/22/23 1257) Treatment Provided: Therapeutic Activities 7 minutes: bed mobility training transfer training education flat foot NWB R LE weight bearing precautions Balance training to improve strength, balance, endurance and functional mobility: static standing at rolling walker w/ flat foot NWB to NWB R LE and min to mod A 2, amb w/ rolling walker and NWB to flat foot NWB R LE and mod A 2 Therapeutic Exercises: 10 minutes Evaluation Moderate Complexity 16 minutes - [id number]: Patient was cooperative, pleasant, motivated, and alert during treatment session. Moderate complexity evaluation performed and 1-2 personal factors or comorbidities were identified that will impact plan of care, including lives alone at home, weight bearing restrictions, and cardiac history. Patient presents with limitations in strength, bed mobility, transfers, gait, balance, endurance, and safety, which will impact plan of care. These limitations will be addressed by the goals set for this patient. Alarm Status Patient positioned in: Bed (supine, HOB elevated, comfort, B upper rails up, nurse w/ pt, IV secure, O2 2L/min nc) (12/22/23 1257) With: Bed alarm intact and functioning and call jean baptiste in reach (12/22/23 1257) Treatment Status: Treatment at bedside (12/22/23 1257) Goals: Demonstrate Bed Mobility with: Supine to Sit: contact guard Sit to supine: contact guard Demonstrate Transfers with: Sit to stand: minimal assistance (pt does 75%) Stand to sit: minimal assistance (pt does 75%) Bed to chair: minimal assistance (pt does 75%) Chair to bed: minimal assistance (pt does 75%) Demonstrate Ambulation: assistive device: rolling walker distance in feet: 5 feet or greater level of assistance on level surface: minimal assistance (pt does 75%) Increase Safety: w/ functional mobility Time Frame: 10 sessions Assessment: NWB to Flat foot NWB R LE maintained t/o PT session. O2 saturation as follows on 2L/min O2 via nc at end of PT session: 95% w/ heart rate of 61 bpm. Pt presents w/ deficits in strength, balance, endurance and functional mobility w/ pt requiring modA 2 to transfer/amb recliner to bed w/ rolling walker and NWB to flat foot NWB R LE, AM PAC 8 and is not safe to transfer or amb without assistance. At discharge would consider post acute care services which may include home health, retirement, outpatient therapy or in pt rehab. The level of care will be determined in collaboration with the patient, family/caregiver and care team members. Skilled PT at [facility] is warranted to address deficits in strength, endurance, balance and functional mobility and to continue to assess discharge needs. Deficits requiring P.T. treatment needs: Safety;Mobility;Balance;Weakness;Endurance (12/22/23 1257) Equipment Needs: Equipment needs: Rolling walker (12/22/23 1257) Treatment Plan: Bed mobility training, Transfer training, Gait training, ROM exercises: B LE, Strengthening exercises: B LE, Balance activities, and Educate on safety with functional mobility and flat foot NWB R LE Anticipated Frequency (on eval): 3 to 5 times per week (12/22/23 1257) AM PAC Score with Stairs: 8 * Marlene Seaman, OTR/L - 12/22/2023 8:11 AM EDTAssociated Order(s): ADULT OCCUPATIONAL THERAPY CONSULT IP GENERAL EVALUATION - Occupational Therapy [facility] [place] [address] Name: Lillian Feliciano Location: [facility] [id number] Date: 12/22/2023 Time: 8:11 AM Lillian Feliciano is a 88 year old female. Patient Status: Inpatient Insurance: Payor: [employer] MEDICARE ADVANTAGE Plan: PAIEON PPO Product Type: *No Product type* Payor: [employer] [place] Plan: [employer] [facility] Product Type: HMO Patient Seen: at bedside Patient Identified By: Name, ID Band and Date Per patient H&P: "88-year-old woman with history of chronic heart failure with preserved ejection fraction, history of takotsubo cardiomyopathy in 2010, complicated by VFib arrest, moderate tricuspid regurgitation, single-chamber ICD in 2010, CAD, STEMI in 2022, hypertension, hyperlipidemia, permanent AFib, peripheral vascular disease status post left lower extremity embolectomy in December of 2022, pericardial effusion status post pericardiocentesis 10/2022 who presents with fall and right hippain this morning. Patient reported that she fell out of sleeping chair about 6 a.m. and started having right hip pain. She crowding to her front room in her apartment. Fell again when she tried to get up. Was on the ground for about 3 hours until maintenance people who were working on her apartment building came in and called EMS. She reports only right hip pain, worsened with movement. Denies any headache head trauma, loss of consciousness, dizziness Denies any nausea, vomiting, abdominal pain, diarrhea. Denies any cough, chest pain or shortness of breath. Reports occasional dyspnea on exertion unchanged. Reports she occasionally uses cane. She lives alone in apartment and quite independent. Denies smoking, alcohol or illicit drug use. Reports adherence to her medications. Her granddaughter gives her meds. Called granddaughter and reconciled patient's home medicine" Diagnosis: right hip fracture (12/22/23810) Status of treatment: Evaluation completed (12/22/23810) Orders: OT evaluation and treatment (12/22/23810) Weight Bearing Status: Non-weight bearing;RLE (12/22/23810) Precautions: Alarms;Falls;Safety;Oxygen (04/04/24 0811) Total Treatment Time: 54 (12/22/23810) Past Medical History: Past Medical History: Diagnosis Date A-fib ([facility]) Asthma, mild persistent Critical limb ischemia of left lower extremity with autologous bypass graft ([facility]) 12/24/2022 DM type 2, goal A1c below 7 Hyperlipidemia Hypertension ICD (implantable cardioverter-defibrillator) in place Myocardial infarction acute ([facility]) 11/24/2010 Ventricular fibrillation arrest, Possible Takotsubo syndrome Nonischemic cardiomyopathy ([facility]) Takotsubo cardiomyopathy Past Surgical History: Past Surgical History: Procedure Laterality Date CORONARY ANGIOGRAPHY W/LEFT HEART CATH 12/04/2010 CORONARY ANGIOGRAPHY W/LEFT HEART CATH performed by TEODORO LEWIS at [facility] CORONARY ANGIOGRAPHY W/LEFT HEART CATH Right 11/01/2022 CORONARY ANGIOGRAPHY W/LEFT HEART CATH performed by Kaden Armstrong DO at [facility] ELECTROPHYSIOLOGY EVALUATION 12/07/2010 ICD IMPLANT DEVICE/LEADS TESTING performed by RAPHAEL MITTAL at [facility] INFORMATION Bilateral tubal INSERT/REPLACE DEFIBRILLATOR W/TRANSVERSE LEAD(S) Left 11/27/2010 Medtronic single chamber PERICARDIOCENT INTL/HOSP ONLY Left 11/02/2022 PERICARDIOCENTESIS performed by Dinora Bingham MD at [facility] REMOVE CATARACT, INSERT LENS PROSTH Left 01/04/2023 EXTRACAPSULAR CATARACT REMOVAL WITH INTRAOCULAR LENS performed by Christian Woo DO at OR [facility] REMOVE CATARACT, INSERT LENS PROSTH Right 01/28/2023 EXTRACAPSULAR CATARACT REMOVAL WITH INTRAOCULAR LENS performed by Christian Woo DO at OR [facility] SYNTH BYPASS, FEMORAL-POP Left 12/23/2022 BYPASS GRAFT OTHER THAN VEIN FEMORAL POPLITEAL performed by Misael Reese MD at [place] [facility] THROMB ART/VENOUS GRAFT W/REVI Left 12/23/2022 THROMBECTOMY ARTERIAL VENOUS GRAFT WITH REVISION performed by Misael Reese MD at [place] [facility] Social History/Disposition Lives with: Alone (12/22/23810) Assistance available: Yes (daughter) (12/22/23810) Dwelling type: Apartment (12/22/23810) Entry steps: 4 (12/22/23810) Inside steps: Elevator (12/22/23810) Bedroom location: 1st floor (12/22/23810) Bath location: 1st floor full bath (tub-shower, grab bars, no grab bars at toilet) (12/22/23810) Prior Level of Function Reported by: Patient (12/22/23810) Ambulation: Ambulatory without device (reports "once in a blue hurt will the cane.") (12/22/23810) Grooming: Independent (12/22/23810) Bathing: Independent (12/22/23810) Dressing: Independent (12/22/23810) Feeding: Independent (12/22/23810) Toileting: Independent (12/22/23810) Meal Prep: Independent (12/22/23810) Homemaking: Independent (12/22/23810) Shopping: Independent (12/22/23810) Medication Management: Assistance (daughter) (12/22/23810) Driving: Yes (12/22/23810) Durable Medical Equipment at home: Grab bars;Straight cane (pt reports she has access to a walker, BSC from family) (12/22/23810) Subjective: "I dress myself." Patient reports being independent at her apartment but daughter doesmanage medications. Pain: Patient has complaints of pain. Pain located right hip. 10/29 Observations Consciousness: Alert (12/22/23810) Orientation: Person;Place;Situation (12/22/23810) Psychosocial: Patient can communicate basic needs;Patient can converse in a social setting (12/22/23810) Sitting posture: Rounded shoulders (12/22/23810) Standing posture: Rounded shoulders (12/22/23810) Safety awareness: The Patient verbalizes insight of current deficits.;The Patient demonstrates carryover of insight during functional tasks.;The Patient can communicate basic needs. (12/22/23810) Other Findings Endurance: Sitting tolerance;Standing tolerance;Functional activity;Fair (12/22/23810) Light touch sensation: LUE;RUE;Intact (12/22/23810) Coordination: LUE;RUE;Fine motor;Intact (12/22/23810) Tone: Normal tone (12/22/23810) Current Functional Status: Bilateral Upper Extremity Hand Dominance: Right (12/22/23810) Range of Motion: WFL (12/22/23810) Strength Assessment: WNL (12/22/23810) Self Care Able to provide self care: Yes (12/22/23810) Feeding: Independent (12/22/23810) Grooming: Minimal Assistance (12/22/23810) Toileting: Contact Guard (12/22/23810) Dressing Upper Body: Minimal Assistance (12/22/23810) Lower Body: Maximal Assistance (12/22/23810) Bathing Upper Body: Minimal Assistance (12/22/23810) Lower Body: Maximal Assistance (12/22/23810) OT Transfers Sit-Stand: Maximal Assistance (Ax2 with NWB of RLE using RW) (12/22/23810) Stand-Sit: Maximal Assistance (12/22/23810) Toilet: Maximal Assistance (Ax2 with NWB of RLE using RW and stand pivot) (12/22/23810) Balance Sit (Static): Good (12/22/23810) Sit (Dynamic): Fair (12/22/23810) Stand (Static): Good (12/22/23810) Stand (Dynamic): Poor (12/22/23810) Alarm Status Patient positioned in: Chair (12/22/23810) With: Pressure pad alarm intact and functioning and call jean baptiste in reach (12/22/23810) Patient and Family Goals: to get well and to return home Patient Education Education Topic: Role of OT;Plan of care goals (12/22/23810) Review of Precautions: Safety;Weight Bearing Status;Fall (12/22/23810) Method of Education: Verbalized to patient (12/22/23810) Education Provided to: Patient (12/22/23810) Response to Education: Receptive and agreeable to education (12/22/23810) Barriers to learning: None (12/22/23810) Preferred learning method: Combination (12/22/23810) Treatment Provided: Therapeutic Activity: 41 minutes Evaluation Moderate Complexity 13 minutes - 29218: Patient was cooperative and pleasant during treatment session. Moderate complexity evaluation performed and 3-5 activity limitations were identified, including ADL deficit, functional mobility deficit, decreased strength, and decreased endurance. Minimal or moderate modification of the functional task was necessary to complete the evaluation. Deficits Requiring O.T. Treatment: Deficits requiring O.T. treatment needs: ADL/self-care;Endurance;IADL;Safety;Weakness;Functional mobility (12/22/23810) Goals: Bathing: Upper: independent (pt does 100%). Lower: moderate assistance (pt does 50%) Dressing: Upper: independent (pt does 100%). Lower: moderate assistance (pt does 50%). Functional Ambulation: Assistive Device: rolling walker. Once NWB status is lifted. Demonstrates standing balance at: Good . Goal Time Frame: Within 10 OT treatment sessions. Assessment: Pt tolerated session well. Reported 2/10 pain in right hip and no increase pain after/during stand pivot transfer. Pt transferred to [facility] with MaxA x2 with a RW to maintain NWB status of RLE. Pt voided. Pt completed UB bathing seated with Min A and LB bathing standing at RW with modA of backside, pt completed darell area with Geoffrey. Pt completed UB dressing with min A. Pt transferred backto chair from [facility] with RW, stand pivot transfer and maxAx2 maintaining NWB of RLE. Pt aware of weight bearing status. Pt seated in chair, alarm and call jean baptiste in reach. FORCE VARIATION EQUIPMENT TENDER in room to complete oral care. OT AM-PAC score: 18 Would consider home with post-acute care services which may include outpatient therapy or home health. The level of care will be determined in collaboration with the patient, family/caregiver, and care team members. Treatment Plan: Energy Conservation, Safety, Functional Ambulation, Transfer training-has a tub-shower at home, Upper extremity strengthening, and ADL training: dressing and bathing. Anticipated Frequency (on eval): 1 to 3 times per week (12/22/23810) Equipment Needs Equipment needs: Grab bars;Raised toilet seat;Quill Buncher And Sorter;Rolling walker;Tub bench (pt has grab bars inshower) (12/22/23810) AM-PAC Help From Another Person Eating Meals: None (12/22/23810) Help From Another Person Taking Care of Personal Grooming: A lot (12/22/23810) Help From Another Person To Put On/Take Off Upper Body Clothing: A little (12/22/23810) Help From Another Person To Put On/Take Off Lower Body Clothing: A lot (12/22/23810) Help From Another Person Toileting: None (12/22/23810) Help From Another Person Bathing: A little (12/22/23810) OT AM-PAC Score: 18 (12/22/23810) OT AM-PAC t-Scale Score: 38.66 (12/22/23810) HLM (Highest Level of Mobility) Goal: Level 4 move to chair/commode (12/22/23729) * Arti Lipscomb DO - 12/19/2023 8:45 PM EDTAssociated Order(s): Cardiology Consult IP Cardiology CONSULT [address] [address] Name: Lillian Feliciano Location: [facility] [id number] Date: 12/19/2023 Time: 8:45 PM Cardiology Consult IP Consult performed by: Arti Lipscomb DO Consult ordered by: Liyah Saavedra MD REQUESTING SERVICE: hospitalist REASON FOR CONSULT: pre-op cardiovascular assessment HPI: Pt seen earlier today Pt's family is at the bedside Pt suffered a presumed mechanical fall complicated with a hip fracture and is going to need orthopedic surgery. Her daughter's tell me the pt often "falls asleep" while sitting and then can fall. They do not think she has any LOC but they can not say for sure Pt denies any palpitations Does have occasional lightheaded and dizziness PAST MEDICAL HISTORY: Past Medical History: Diagnosis Date A-fib ([facility]) Asthma, mild persistent Critical limb ischemia of left lower extremity with autologous bypass graft ([facility]) 12/24/2022 DM type 2, goal A1c below 7 Hyperlipidemia Hypertension ICD (implantable cardioverter-defibrillator) in place Myocardial infarction acute ([facility]) 11/24/2010 Ventricular fibrillation arrest, Possible Takotsubo syndrome Nonischemic cardiomyopathy (HCC) Takotsubo cardiomyopathy PAST SURGICAL HISTORY: Past Surgical History: Procedure Laterality Date CORONARY ANGIOGRAPHY W/LEFT HEART CATH 12/04/2010 CORONARY ANGIOGRAPHY W/LEFT HEART CATH performed by TEODORO LEWIS at [facility] CORONARY ANGIOGRAPHY W/LEFT HEART CATH Right 11/01/2022 CORONARY ANGIOGRAPHY W/LEFT HEART CATH performed by Kaden Armstrong DO at [facility] ELECTROPHYSIOLOGY EVALUATION 12/07/2010 ICD IMPLANT DEVICE/LEADS TESTING performed by RAPHAEL MITTAL at [facility] INFORMATION Bilateral tubal INSERT/REPLACE DEFIBRILLATOR W/TRANSVERSE LEAD(S) Left 11/27/2010 Medtronic single chamber PERICARDIOCENT INTL/HOSP ONLY Left 11/02/2022 PERICARDIOCENTESIS performed by Dinora Bingham MD at [facility] REMOVE CATARACT, INSERT LENS PROSTH Left 01/04/2023 EXTRACAPSULAR CATARACT REMOVAL WITH INTRAOCULAR LENS performed by Christian Woo DO at OR [facility] REMOVE CATARACT, INSERT LENS PROSTH Right 01/28/2023 EXTRACAPSULAR CATARACT REMOVAL WITH INTRAOCULAR LENS performed by Christian Woo DO at OR [facility] SYNTH BYPASS, FEMORAL-POP Left 12/23/2022 BYPASS GRAFT OTHER THAN VEIN FEMORAL POPLITEAL performed by Misael Reese MD at [facility] THROMB ART/VENOUS GRAFT W/REVI Left 12/23/2022 THROMBECTOMY ARTERIAL VENOUS GRAFT WITH REVISION performed by Misael Reese MD at [facility] FAMILY HISTORY: Family History Problem Relation Age of Onset Heart Disorder Mother Lung Disorder Father Cancer Sister Breast and lung Cancer Brother Unknown type Cancer Sister Breast and bone Cancer Sister Stomach Other (Accident at work due to a head injury) Brother Heart disease Brother Kidney disease Brother Cancer Brother stomach SOCIAL HISTORY: Social History Tobacco Use Smoking status: Never Smokeless tobacco: Never Vaping Use Vaping Use: Never used Substance Use Topics Alcohol use: No Drug use: No ALLERGIES: Patient has no known allergies. ROS: Review of Systems Constitutional: Negative for activity change, chills, fatigue, fever and unexpected weight change. HENT: Negative for postnasal drip, rhinorrhea and sinus pressure. Eyes: Negative for visual disturbance. Respiratory: Negative for shortness of breath. Cardiovascular: Negative for chest pain, palpitations and leg swelling. Gastrointestinal: Negative for blood in stool, constipation, diarrhea, nausea and vomiting. Genitourinary: Negative for dysuria and hematuria. Musculoskeletal: Positive for gait problem. Skin: Negative for rash. Neurological: Positive for dizziness and light-headedness. Negative for syncope. PHYSICAL EXAMINATION: Most Recent Vital Signs: BP: 111 mmHg/62 mmHg (12/19/231833) Pulse: 72 (12/19/231833) Temp: 36.11 C (12/19/231833) Temp Summary: Temp Min: 36.1 C (97 F) Max: 36.9 C (98.4 F) SpO2: 94 % (12/19/231833) O2 flow rate: Supplemental O2 Delivery: Nasal Cannula (12/19/231833) Physical Exam Vitals and nursing note reviewed. Constitutional: General: She is awake. Appearance: Normal appearance. She is well-developed. HENT: Head: Normocephalic and atraumatic. Eyes: General: No scleral icterus. Extraocular Movements: Extraocular movements intact. Neck: Vascular: Normal carotid pulses. No carotid bruit or JVD. Cardiovascular: Rate and Rhythm: Normal rate and regular rhythm. Pulses: Carotid pulses are 2+ on the right side and 2+ on the left side. Radial pulses are 2+ on the right side and 2+ on the left side. Posterior tibial pulses are 2+ on the right side and 2+ on the left side. Heart sounds: S1 normal and S2 normal. Murmur heard. Pulmonary: Effort: Pulmonary effort is normal. Breath sounds: Normal breath sounds. No decreased breath sounds, wheezing, rhonchi or rales. Chest: Comments: Left pectoral region; ICD site no evidence of threatened erosion Musculoskeletal: Cervical back: Neck supple. Right lower leg: No edema. Left lower leg: No edema. Skin: General: Skin is warm and dry. Neurological: General: No focal deficit present. Mental Status: She is alert and oriented to person, place, and time. Psychiatric: Attention and Perception: Attention normal. Mood and Affect: Mood normal. Speech: Speech normal. Behavior: Behavior normal. Behavior is cooperative. Thought Content: Thought content normal. Cognition and Memory: Cognition normal. Judgment: Judgment normal. 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 Left atrial enlargement suggests diastolic left ventricular dysfunction. The right ventricular cavity is mildly dilated. The right ventricular systolic function is mildly reduced There is a pacemaker wire in the right ventricle. The left atrium is severely enlarged. The right atrium is enlarged (> 18 cm^2). The aortic valve is mildly calcified. Mild aortic valve regurgitation is present. There is mild mitral annular calcification. Mild mitral regurgitation is present. Moderate tricuspid regurgitation is present. There is mild pulmonary regurgitation. The proximal ascending thoracic aorta is mildly enlarged. The proximal inferior vena cava is dilated. Indeterminate IVC size and collapsability. Right atrial pressure estimated at 8 mmHg. The pulmonary artery systolic pressure is 40.3 mmHg. Mild pulmonary hypertension is present. When compared to prior study from 12/2022 there is no significant change. Left Ventricle The left ventricle was adequately visualized. Calculated LV ejection Fraction = 54% (three dimensional volumes). The left ventricular cavity size is normal. The LV wall thickness is normal. There is no left ventricular mura 12/24/22 The examination is adequate to evaluate the referral indication. The qualitative LV ejection fraction is 55-59% (normal). The right ventricular cavity is mildly dilated. The right ventricular systolic function is normal as assessed by tricuspid annular plane systolic excursion . The aortic valve is mildly calcified. There is a calcified nodule on Aortic valve cup which was present on prior study as well. There is mild mitral annular calcification. Cardiac Cath 11/01/22 Non-obstructive CAD. No culprit for EKG presentation * Ostial LCx has 50% stenosis and apical LAD has 60% stenosis Nuclear Stress Test 10/28/23 This is an abnormal study. Lexiscan nuclear stress test suggestive of ischemia of the distal to mid anterior wall and basal inferolateral inferior wall Moderate area of area of moderate severe intensity reversible defect of distal to mid anterior and apex. Basal inferolateral and inferior wall TID abnormal at 1.55 . The LV ejection fraction is calculated at 30%. Gated SPECT shows hypokinesis basal septal lateral and inferior Raw images show chest wall attenuation. LABS: Labs reviewed as indicated below: Component Latest Ref Rng 11/10/2023 11/12/2023 11/21/2023 12/19/2023 BUN 6 - 20 mg/dL 17 25 (H) Creatinine 0.5 - 1.0 mg/dL 1.0 1.1 (H) Estimated Glomerular Filtration Rate >=60 mL/min 57 (L) 52 (L) Sodium 135 - 146 mmol/L 143 145 Potassium 3.5 - 5.1 mmol/L 3.9 3.3 (L) Chloride 98 - 107 mmol/L 101 100 CO2 22 - 32 mmol/L 31 34 (H) Anion Gap 7 - 15 mmol/L 11 11 Glucose 70 - 120 mg/dL 145 (H) 127 (H) Albumin 3.8 - 5.0 g/dL 4.2 AST 10 - 35 U/L 20 Alkaline Phosphatase 35 - 130 U/L 71 Bilirubin, Total <=1.2 mg/dL 0.5 Calcium 8.4 - 10.2 mg/dL 9.1 9.6 Protein 6.0 - 8.3 g/dL 6.7 ALT 10 - 35 U/L 16 WBC 4.00 - 10.80 K/uL 8.14 Neutrophils % 40.0 - 75.0 % 57.1 Lymphocytes % 18.0 - 42.0 % 29.1 Monocytes % 1.0 - 11.0 % 10.7 Eosinophils % 0.0 - 6.0 % 2.8 Basophils % 0.0 - 2.0 % 0.1 Immature Granulocytes % 0.0 - 2.0 % 0.2 Absolute Neutrophils 1.80 - 7.70 K/uL 4.64 Absolute Lymphocytes 1.00 - 4.80 K/ul 2.37 Absolute Monocytes 0.00 - 1.10 K/uL 0.87 Absolute Eosinophils 0.00 - 0.70 K/uL 0.23 Absolute Basophils 0.00 - 0.20 K/uL 0.01 Absolute Immature Granulocytes 0.00 - 0.20 K/uL 0.02 WBC 4.00 - 10.80 K/uL 7.03 9.61 WBC 8.14 RBC 3.85 - 5.15 M/uL 5.03 5.02 RBC 5.35 HGB 12.0 - 15.3 g/dL 12.0 11.7 (L) HGB 12.4 HCT 36.0 - 45.2 % 39.1 38.1 HCT 40.5 MCV 81.5 - 97.5 fL 77.7 75.9 MCV 75.7 MCH 27.0 - 34.0 pg 23.9 23.3 MCH 23.2 MCHC 32.0 - 36.0 g/dL 30.7 30.7 MCHC 30.6 RDW 11.5 - 15.5 % 19.4 20.1 RDW 20.5 PLT 140 - 400 K/uL 146 153 PLT 178 MPV 6.6 - 11.1 fL 11.8 10.8 MPV 11.4 nRBCs <=0 /100 WBCs 0 0 nRBCs 0 Hemoglobin A1C 4.0 - 5.6 % 7.7 (H) Estimated Average Glucose <126 mg/dL 174 (H) Ovalocytes None Seen Moderate ! IMAGING: CXR: Independently interpreted by myself Normal study IMPRESSION: Mechanical Fall complicated with right femur and hip fracture Permanent AF [id number] disease by cath 11/01/2022 Chronic heart failure with preserved EF, NYHA Class PAD DM Hx V Fib Cardiac Arrest, 11/2010 s/p ICD with gent change 03/18/2020 Pericardial effusion s/p pericardiocentesis 10/2022 HLD PLAN: Pt suffered a mechanical fall complicated with a right hip and femur fracture; she has underlying cardiac disease that is all currently stable -I am not sure where her admitting ECG is as it is not in muse; so if unable to upload them into MUSE then would repeat one -Pt is at an acceptable moderate cardiovascular risk for her orthopedic surgery; you do not have toreprogram the ICD for the procedure; if you are concerned about an inappropriate shock you can put a magnet over the ICD during the surgery however the surgery is far enough away from the ICD that you should not need to do anything -Hold eliquis for the procedure; restart afterwards when recommended by the orthopedic surgeon-ideally within 24 hours -Continue ASA, lipitor, toprol -Continue torsemide she is euvolemic on exam -Monitor on telemetry I spent a total of 80 minutes coordinating, documenting, and providing care for this patient excluding time spent in the performance of separately billed services or time spent by another provider/QHP. * Sulaiman Morales MD - 12/19/2023 3:40 PM EDTAssociated Order(s): ORTHOPAEDICS CONSULT IP Orthopaedics CONSULT [facility] [id number] Name: Lillian Feliciano Location: [facility] [id number] Date: 12/19/2023 Time: 3:41 PM REASON FOR CONSULT: Right hip fracture HPI: Lillian Feliciano 88 year old [facility] status post a fall out of a chair. Patient underwent x-rays in the emergency room was noted to have a right hip fracture. She was admitted to the hospitalist service and Orthopedics was consulted. Patient is a home ambulator. PAST MEDICAL HISTORY: Past Medical History: Diagnosis Date A-fib ([facility]) Asthma, mild persistent Critical limb ischemia of left lower extremity with autologous bypass graft ([facility]) 12/24/2022 DM type 2, goal A1c below 7 Hyperlipidemia Hypertension ICD (implantable cardioverter-defibrillator) in place Myocardial infarction acute ([facility]) 11/24/2010 Ventricular fibrillation arrest, Possible Takotsubo syndrome Nonischemic cardiomyopathy ([facility]) Takotsubo cardiomyopathy PAST SURGICAL HISTORY: Past Surgical History: Procedure Laterality Date CORONARY ANGIOGRAPHY W/LEFT HEART CATH 12/04/2010 CORONARY ANGIOGRAPHY W/LEFT HEART CATH performed by TEODORO LEWIS at [facility] CORONARY ANGIOGRAPHY W/LEFT HEART CATH Right 11/01/2022 CORONARY ANGIOGRAPHY W/LEFT HEART CATH performed by Kaden Armstrong DO at [facility] ELECTROPHYSIOLOGY EVALUATION 12/07/2010 ICD IMPLANT DEVICE/LEADS TESTING performed by RAPHAEL MITTAL at [facility] INFORMATION Bilateral tubal INSERT/REPLACE DEFIBRILLATOR W/TRANSVERSE LEAD(S) Left 11/27/2010 Medtronic single chamber PERICARDIOCENT INTL/HOSP ONLY Left 11/02/2022 PERICARDIOCENTESIS performed by Dinora Bingham MD at [facility] REMOVE CATARACT, INSERT LENS PROSTH Left 01/04/2023 EXTRACAPSULAR CATARACT REMOVAL WITH INTRAOCULAR LENS performed by Christian Woo DO at OR [facility] REMOVE CATARACT, INSERT LENS PROSTH Right 01/28/2023 EXTRACAPSULAR CATARACT REMOVAL WITH INTRAOCULAR LENS performed by Christian Woo DO at OR [facility] SYNTH BYPASS, FEMORAL-POP Left 12/23/2022 BYPASS GRAFT OTHER THAN VEIN FEMORAL POPLITEAL performed by Misael Reese MD at [facility] THROMB ART/VENOUS GRAFT W/REVI Left 12/23/2022 THROMBECTOMY ARTERIAL VENOUS GRAFT WITH REVISION performed by Misael Reese MD at [facility] FAMILY HISTORY: Family History Problem Relation Age of Onset Heart Disorder Mother Lung Disorder Father Cancer Sister Breast and lung Cancer Brother Unknown type Cancer Sister Breast and bone Cancer Sister Stomach Other (Accident at work due to a head injury) Brother Heart disease Brother Kidney disease Brother Cancer Brother stomach SOCIAL HISTORY: Social History Tobacco Use Smoking status: Never Smokeless tobacco: Never Vaping Use Vaping Use: Never used Substance Use Topics Alcohol use: No Drug use: No ALLERGIES: Patient has no known allergies. ROS: No headache, blurred vision, blindness No chest pain, palpitatons or dyspnea on exertion No SOB or cough No weakness No numbness or tingling PHYSICAL EXAMINATION: Most Recent Vital Signs: BP: 125 mmHg/67 mmHg (12/19/231513) Pulse: 84 (12/19/231513) Temp: 36.39 C (12/19/231513) Temp Summary: Temp Min: 36.3 C (97.3 F) Max: 36.9 C (98.4 F) SpO2: 95 % (12/19/231513) O2 flow rate: Supplemental O2 Delivery: Nasal Cannula (12/19/231513) General appearance - well nourished, comfortable. Not in acute distress, oriented X 3 Head - without deformity, mass, or tenderness. Neck - ROM not painful, supple, without any obvious swelling or thyromegaly. Chest - Breathing comfortably, normal excursion, no deformity. Psych- Responding appropriately with appropriate effect. Skin - no rashes or lesion. Extremities - no cyanosis,or edema. Vascular-Peripheral pulses - no ulcers, capillary refill <2 sec, good distal perfusion. Musculoskeletal - Evaluation of the right lower extremity. There is no evidence of skin breakdown. Patient does have pain with internal-external rotation of the hip. Sensation is intact the SPN, DPN tibial nerve distribution. No evidence of shortening of the right leg or external rotation deformity. Intact capillary filling and sensation distally. IMAGING: Reviewed the x-rays of the right hip and pelvis. Those x-rays show evidence of a minimallydisplaced subcapital femoral neck fracture. IMPRESSION and PLAN: Principal Problem: Fall at home (POA: Yes) Active Problems: Type 2 diabetes mellitus with hemoglobin A1c goal of less than 7.0% (HCC) (POA: Yes) Atrial fibrillation (HCC) (POA: Yes) Chronic anticoagulation (POA: Yes) (HFpEF) heart failure with preserved ejection fraction (HCC) (POA: Yes) PAD (peripheral artery disease) (HCC) (POA: Yes) Coronary artery disease involving viejas coronary artery of viejas heart without angina pectoris (POA: Yes) Closed fracture of right femur (HCC) (POA: Yes) POA = Present On Admission We discussed diagnosis and treatment options with the patient today. At this time we discussed non operative versus operative management. We discussed surgery to entail right hip percutaneous pin fixation versus bipolar hemiarthroplasty with the granddaughter. I discussed all clinical and diagnostic findings in detail with the patient as well as all treatment options both conservative and surgical. The patient decided to proceed with surgery given ongoing symptoms despite previous conservative treatment. I discussed all alternatives, risk, benefits and complications of procedure including but not limited to bleeding, infection, nerve damage, wound healing complications, hematoma, blood clots, pulmonary embolism, neurovascular injury, instability, limb length discrepancy, possible failure of surgery, need of revision surgery, , unforeseen complications and complications associated with anesthesia. Patient and granddaughter understood all discussions and agreed to proceed. After review of the patients medical history (last Ha1c of 7.7), lower extremity edema, antiicoagulation with a minimally displaced fracture, we agreed that percutaneous screw fixation would be the best option. Sulaiman Morales MD Orthopedic Sports Medicine Surgery 12/19/2023 This chart was completed in part utilizing [employer] Speech Voice Recognition Software. Grammatical errors, random word insertions, prounoun errors and incomplete sentences are an occasional consequence of this system due to software limitations, ambient noise, and hardware issues. Any formal questions or concerns about the content, text, or information contained within the body of this dictation should be directly addressed to the provider for clarification. documented in this encounter Nursing Notes * Neena Mauricio RN - 12/26/2023 11:28 AM EDT Report called to [place] and given to Karl Washington. * Lauren Mayorga RN - 12/26/2023 11:21 AM EDT You have a follow up appointment in [facility] with Yg Pickering PA-C on January 08 @ 11:00 am, please arrive 15 minutes early. Yg Pickering PA-C [phone] [facility] [address] [place] [address] * Neena Walden RN - 12/21/2023 3:50 PM EDT IN-HOUSE TRANSFER RECEIVING UNIT - NURSING [address] [address] Name: Lillian Feliciano Location: [facility] 6B-6019/D Date: 12/21/2023 Time: 3:50 PM Patient received to room Formerly named [facility] at 1505 Vital Signs: BP: 110 mmHg/75 mmHg (12/21/23 153) Pulse: 73 (12/21/23 153) Temp: 36.22 C (12/21/231533) Temp Summary: Temp Min: 35.1 C (95.2 F) Max: 36.8 C (98.2 F) SpO2: 96 % (12/21/231533) O2 flow rate: 2 L/MIN (12/21/231533) Supplemental O2 Delivery: Nasal Cannula (12/21/231533) Pertinent transfer information upon arrival : Patient returns to after R hip perc screw placement. Patient very drowsy. Unable to answer orientation questions. Arouses to painful stimuli and voice. VSS. See flowsheets for detailed assessment data. Polar care in place and dressing clean and dry. Patient re-oriented to unit and call jean baptiste within reach. Fall precautions in place. Belongings received with patient: SCD, polar care Verbal SBAR report received from: Sierra Gr RN Dual Licensed Skin Assessment completed by Kristen Walden RN and Kristen Mauricio RN. The patient is/has a N/A Skin Breakdown (includes non blanchable erythema): Yes - Surgical/Procedural changes only. R hip surgical incision * Carol Gr RN - 12/21/2023 3:20 PM EDT Post Anesthesia Care Unit Discharge Note [address] [address] Dept. Lillian Feliciano Vital Signs Stable Discharged from PACU as per discharge criteria (see discharge criteria sheet). Time: 1454 Reported to: Neena SUMMERS Taken to Inpatient Room 6019, accompanied by carol gr RN. Transported via: Bed Belongings with Patient: YES Prescriptions on Chart: N/A Patient meets criteria to be transferred or discharged * Renan Junior RN - 12/21/2023 12:[address] Morales requested the room temp be lowered to 67 degrees due to risk of sweating on the sterile field. He is aware of needing a note documented. Anesthesia is continually monitoring the patients temperature and controlling it with the Carey Hugger. * Neena Walden RN - 12/21/2023 10:47 AM EDT IN-HOUSE TRANSFER SENDING UNIT - NURSING [address] [address] Name: Lillian Feliciano Location: OR [facility]/OR Date: 12/21/2023 Time: 10:47 AM Pertinent information upon transfer : Patient to OR. Patient A&O x4, on 1L NC with fluids infusing. Patient on heart monitor on floor-controlled A-fib. Patient on eliquis and aspirin. Metoprolol given this morning. IVF lung and infusing. IV patent. CHG wip completed. ABX given to pre-op nurse Isolation: None Transferring nursing unit: 6B Vital signs: BP: 132 mmHg/63 mmHg (12/21/23 1019) Pulse: 68 (12/21/23 1022) Temp: 35.5 C (12/21/23 1019) Temp Summary: Temp Min: 35.1 C (95.2 F) Max: 36.2 C (97.2 F) SpO2: 98 % (12/21/23 102) O2 flow rate: 1 L/MIN (12/21/23 102) Supplemental O2 Delivery: Nasal Cannula (12/21/23 102) From room 6019 to sameday Means of transfer: bed Family and/or significant other notified of transfer: family at bedside Belongings being sent with patient: SCD, [facility] Verbal SBAR report given to: Mitchell Mayorga RN documented in this encounter OR Notes * OR Surgeon - Sulaiman Mroales MD - 12/21/2023 1:22 PM EDT Patient Name: Lillian Feliciano Location- OR [facility] Service - [facility] Date of operation- 12/21/2023 PREOPERATIVE DIAGNOSES: Right nondisplaced subcapital femoral neck hip fracture, POSTOPERATIVE DIAGNOSES: Right nondisplaced subcapital femoral neck fracture Surgeon - Sulaiman Morales MD [employer] Architect- Yg Pickering PA-C. No qualified resident was available to assist. The orthopedic PA-C was required for assistance with surgical exposure, fracture reduction, implantplacement, wound closure and dressing application. I performed the technical aspects of the surgical procedure and the orthopedic PA-C provided the necessary assistance for such operation. ANESTHESIA: General OPERATION PERFORMED: Percutaneous screw fixation of right subcapital femoral neck fracture Finding- nondisplaced subcapital femoral neck fracture of the right hip Specimen and disposition- none Estimated Blood Loss- 50 mL Urine Output- 300 mL IV fluid -1000 mL Drain- none Implant- 6.5 mm partially-threaded cannulated screws with washers x3 Complications- None Postoperative condition: Stable. Pre-procedure notes- Patient sustained a nondisplaced subcapital femoral neck fracture. I explained the patient the nature of the fracture, need for surgery in form of closed/open reduction of fracture and intramedullarynailing, recovery and rehab process, complications including infection, wound healing problems, nerve, vessel, tendon injury, fracture, hardware prominence and hardware failure, cut out of screws andneed of future surgeries, need for future surgeries, blood clots, pulmonary embolism, risks of anesthesia, understood all the discussion and gave written informed consent to go ahead with surgery. Operative Notes: The patient was brought to the operating room and after the first timeout to identify correct patient, correct extremity, instruments, DVT prophylaxis general anesthesia was given. IV antibiotics were administrated. The patient was then placed in a supine position on a fracture table. The opposite leg was placed in a leg mayer so that it didn't interfere with the C-arm. The fractured extremity was tied to a boot and secured firmly on the fracture table Under C-arm guidance, the hip fracture was then closed reduced. The AP and lateral view revealed a nondisplaced femoral neck fracture. The lower extremity was then prepped and draped in the usual sterile fashion. Second timeout was called before the skin incision. The large C-arm was used to find the starting position of the most distal screw. Once this was performed the skin was incised over top of the appropriate positioning. Was taken down through the skin with a 15. Blade. Bovie cautery was used for hemostasis. Once through the ITB band the tensor fascia was identified and split using blunt dissection. The cup was used to perform blunt dissection. Once down to the lateral proximal femur the large C-arm was used to evaluate position. Next a distal guide pin was placed proximal to the lesser troch into the inferior femoral head. Once the guide pin was then placed and checked in both AP and lateralpositions 2 proximal guide pins were placed in position to perform a reverse triangle formation. With all grade 3 guide pins in the appropriate position measurements were taken. Next titanium partially-threaded cannulated screws with washers were placed into the appropriate position over the guidewires. Final xrays were taken and saved to PACS system confirming acceptable alignment of implants and well-reduced fracture. All incisions were copiously irrigated. Fascial layer and subcutaneous tissues were closed using interrupted absorbable sutures. The skin was closed with bertha. Sterile dressing applied. All instrument, needle and sponge count was found to be correct at the end of the procedure. The patient was awakened, extubated, and transferred to a recovery room bed. She was transferred tothe recovery room in stable condition. Please note that patient was neurovascular intact in recovery room, dorsalis pedis was intact, good capillary feeling, sensation, and movements of the toes wereintact. Condition of patient: Stable Disposition- Patient will be observed in PACU and will get admitted on floor once get clearance from PACU. Patient will receive pain medication, DVT prophylaxis, medical management and orthopedic management on floor. Patient will undergo physical therapy with foot flat nonweightbearing with assistive device to the surgical extremity. Patient will be transfers only. The patient may follow up with Yg ONEIL in Orthopedics in 3-4 weeks for re-evaluation. Patient should undergo dressing changes with dry 4x4s and paper tape daily. If the incisions dry bertha may be removed at 10-14 days postoperatively and replaced with Steri-Strips. Sulaiman Morales MD OR [facility], Operating Room, [facility] - 4th Floor [address] [facility] [address] Orthopedic Sports Medicine Surgery 12/21/2023 1:23 PM * Operative Report Brief - Sulaiman Morales MD - 12/21/2023 1:21 PM EDT [facility]-[address] [address] OPERATIVE REPORT - BRIEF Name: Lillian Feliciano Date: 12/21/2023 Time: 1:21 PM Location: OR [facility] Service: Orthopedic Surgery Date of Operation: 12/21/2023 Pre-op Diagnosis: Right nondisplaced subcapital femoral neck fracture Post-op Diagnosis: Right nondisplaced subcapital femoral neck fracture Operation: Right hip fracture percutaneous screw fixation Surgeon: Sulaiman Morales MD Assistants: Yg Pickering PA-C Anesthesia: General endotracheal anesthesia Postoperative pain management per Anesthesia for evaluation and placement of regional anesthesia toreduce the need for opioid pain medication. Drains: none Estimated Blood Loss: 50 ml. IV Fluids: 1000 ml. Urine Output: N/A Specimens/Disposition: None Apparent Intraoperative Complications: NONE Patient Condition: stable Disposition: Post Anesthesia Care Unit Attestation: I understand that section 1842 (b)(7)(D) of the Social Security Act generally prohibits Medicare physician fee schedule payment for the services of uyilpiourj-yo-hnkuwza in teaching hospitals when qualified residents are available to furnish such services. I certify that the services for which payment is claimed were medically necessary, and that no qualified resident was available to perform the services. I further understand that these services are subject to post-payment review by the Medicare carrier. documented in this encounter ED Notes * Pepe Chaudhari MD - 12/19/2023 10:02 AM EDT HISTORY OF PRESENT ILLNESS Lillian Feliciano is a 88 year old female who presents to the ED for evaluation of Fall. The patient was seen at 12/19/23 0956. This patient fell out of a chair that she was sleeping in at about 630 this morning. She was found on the floor by a worker who was performing some work in her apartment. She denies loss of consciousness or head injury although I note that 1 of the nurses notes indicates that she had struck her head. She is anticoagulated on Eliquis. She denies any neck pain. She denies chest pain belly pain back pain. She does complain of considerable pain in her right leg centeredaround the right knee but both above and below the right knee. She was unable to get herself up Alert type: Adult Trauma - Level 1 Trauma Evaluation: Pre-hospital notification: Yes Mechanism of injury: fall Time since injury: 4 hours Primary survey: airway normal, breath sounds normal, equal chest rise, pulses present in all extremities, no active bleeding, no focal deficit, alert and oriented, fully exposed and clothing removed Cervical spine assessment: C-collar placed by EMS Chest x-ray preliminary findings: Negative Pelvis x-ray preliminary findings: Negative E-FAST findings: Not indicated Trauma Mechanism of injury: Fall The patient's allergies, past history, and medications were reviewed. PHYSICAL EXAM Initial Vitals (see all): BP 114/92 | Pulse 80 | Resp 18 | Temp 97.3 | O2 100 %, Room Air, None | Weight 66.9 kg | Height 165.1 cm | BMI 24.54 kg/m2 Initial Pain Assessment (see all): 10 (severe pain)/10, Sharp, location: r knee ([facility] Adult Scale 0-10) Physical Exam Constitutional: Interventions: Cervical collar in place. General: Alert. appropriate for age. no acute distress. nontoxic. Skin: Warm, dry. Head: Atraumatic. Neck: trachea midline. No distended neck veins supple and painless on range of motion Eye: Normal conjunctiva. PERRL, EOMI, Ears, nose, mouth and throat: airway patent. No inflammation Cardiovascular: Normal peripheral perfusion. Regular rate and rhythm without murmurs or extra sounds. No distended neck veins. . Respiratory: no respiratory distress. The lungs are clear to auscultation without rales wheezes or rhonchi. Breath sounds equal and present bilaterally. Gastrointestinal: Non distended. Abdomen is soft and nontender. No guarding. No rebound. No organomegaly. Musculoskeletal: No deformity. Painful range of motion right leg and knee Neurological: No focal neurological deficit observed. alert. Psychiatric: Cooperative. Differential diagnosis Fall, fracture of the right hip, fracture of the right knee, no complaints of her head but she is anticoagulated so will CT scan her head PROCEDURES AND TREATMENTS ED Orders | ED Results MEDICAL DECISION MAKING Nursing notes and vital signs were reviewed. ED consults were placed. ED Course as of 12/21/23 1319 Mon Dec 19, 2023 112 XR Knee 4 or more views No fracture [DR] 1123 XR Femur; minimum 2 views Impacted right subcapital fracture [DR] 1123 XR Tib/fib 2 views No acute fracture [DR] 1123 XR Chest 1 View No acute abnormality [DR] 1123 XR Pelvis 1 View Impacted subcapital fracture on the right [DR] 1123 CT Head/Brain without contrast No acute abnormality [DR] [address] Morales who will kindly provide orthopedic care and requests admission to hospitalist service [] [address] Saavedra who will kindly admit to telemetry [DR] ED Course User Index [] Pepe Chaudhari MD Amount and/or Complexity of Data Reviewed Labs: ordered. Radiology: ordered. Decision-making details documented in ED Course. ECG/medicine tests: ordered. Risk Prescription drug management. Decision regarding hospitalization. Clinical Impressions Closed fracture of right hip, initial encounter ([facility]) Fall Disposition Admitted. I discussed the management of this patient with the admitting provider and I made a decision to admit the patient. Admission Order Ordered Status . 12/19/23 1257 Admit for Inpatient Services (incl ZPO) ONCE Completed Pepe Chaudhari * Yesi Aldridge RN - 12/19/2023 9:50 AM EDT Pt reports she fell out of a piece of furniture while sleeping. Complains of R leg (knee) pain. +head injury without loc. Takes eliquis. documented in this encounter Miscellaneous Notes * Ancillary Progress Note - Makeda Villanueva RN - 12/26/2023 11:22 AM EDT CARE MANAGEMENT - ADULT DISCHARGE NOTE [facility]-[address] [address] Name: Lillian Feliciano Location: [facility] 6B-6019/D Date: 12/26/2023 Time: 11:22 AM The following coordination of care and discharge plan has been coordinated with the care team, patient, family and/or caregiver according to the patients needs and preferences. Discharge Discharge Second Notice Important Message from Medicare delivered: Yes (12/26/231120) Date Delivered: 12/25/23 (12/26/231120) Was Caregiver/Family/Facility contacted regarding discharge: Yes (12/26/231120) Discharge Transportation: Wheelchair Van (12/26/23 1121) Date of scheduled discharge transportation: 12/26/23 (12/26/23 1121) Final Discharge Plan (Complete only at time of Discharge): SNF (12/26/23 1122) Destination - Admitted Since 12/19/2023 Service Provider Selected Services Address Phone Fax Patient Preferred Last Updated [facility] [phone] -- Makeda Villanueva RN 12/26/2023 1122 Narrative: Patient discharged to [place] and [facility] transportation requested for 1215. Patient aware of out of pocket cost. Facility and family aware of transport time. * Ancillary Progress Note - Makeda Villanueva RN - 12/26/2023 11:20 AM EDT Spoke with patient and daughter and requesting [employer] for transportation and aware of out of pocket cost. Patient shares she is a [employer] member. * Ancillary Progress Note - Ena Flores CRT - 12/26/2023 10:49 AM EDT 1048--RT titrated this pt to room air from 1 lpm. The pt was monitored for 10 minutes and pt's [id number] above 90%. * Ancillary Progress Note - Makeda Villanueva RN - 12/26/2023 8:08 AM EDT Feliciano [facility] auth approval Auth # [id number], start care date is 12/23/2023, NRD 12/28/2023, [employer] Contact for snf continue stay review: clyde Sudheer, phone [phone], ext [phone], . Please notify when patient is physically admitted to snf. * Care Plan - Cornelio Hanna RN - 12/25/2023 6:27 PM EDT Clinical Goal(s): Pt will be out of bed for all meals during this shift (12/25/23 1000) Possible barriers to meeting goal(s)/advancing plan of care: pain, recent surgery Stability of the patient: Moderately stable - low risk of patient condition declining or worsening Summary regarding today's goal(s): Met: Pt was oob in chair for all meals during this shift Recommendations: continue to encourage ambulation * Pt Handout (on AVS) - Sebastian Miguel RPh - 12/25/2023 9:04 AM EDT Images from the original note were not included. [id number] Apixaban Oral Tablet Brands: Eliquis Uses This medicine is used for the following purposes: blood disorder prevent blood clots treatment of blood clots blood clot Instructions This medicine may be taken with or without food. This medicine will work best if you take it at about the same time every day. Store at room temperature away from heat, light, and moisture. Do not keep in the bathroom. It is important that you keep taking each dose of this medicine on time even if you are feeling well. If you forget to take a dose on time, take it as soon as you remember. If it is almost time for thenext dose, do not take the missed dose. Return to your normal schedule. Do not take 2 doses at one time. Drug interactions can change how medicines work or increase risk for side effects. Tell your healthcare providers about all medicines taken. Include prescription and tfdl-fje-shotgxq medicines, vitamins, and herbal medicines. Speak with your doctor or pharmacist before starting or stopping any medicine. Talk to your doctor before taking other medicines, including aspirins and ibuprofen containing products. Speak to your doctor about which medicines are safe to use while you are on this medicine. It is very important that you follow your doctor's instructions for all blood tests. Cautions This medicine may cause serious bleeding problems in patients taking blood thinner medications. Follow your doctor's instructions carefully to monitor your blood lab tests if you are on blood thinners. Tell your doctor and pharmacist if you ever had an allergic reaction to a medicine. This medicine may cause serious bleeding from the stomach or bowels. Stop this medicine and call your doctor immediately if you see any signs of bleeding. Bleeding can cause pain in the stomach, vomiting up liquid that looks like coffee grounds, and red or dark tarry stools. There is an increased risk of bleeding while on this medicine, please tell your doctor or nurse if you notice any excessive bleeding or bruising. Do not use the medication any more than instructed. Please check with your doctor before drinking alcohol while on this medicine. Do not breastfeed while on this medicine. This medicine can hurt a new baby in the womb. If you become while on this medicine, tell your doctor immediately. Your doctor may switch you to a different medicine. Do not take Onaga's wort while on this medicine. Do not share this medicine with anyone who has not been prescribed this medicine. Some patients have serious side effects from this medicine. Ask your pharmacist to show you the information from the Food and Drug Administration (FDA) and discuss it with you. Always refill this medicine before it runs out. Side Effects The following is a list of some common side effects from this medicine. Please speak with your doctor about what you should do if you experience these or other side effects. nosebleeds Call your doctor or get medical help right away if you notice any of these more serious side effects: bleeding or bruising coughing up blood or vomit that looks like coffee grounds fainting numbness or tingling in hands and feet severe or persistent headache sudden leg pain, swelling, warmth or redness loss of movement anywhere on the body shortness of breath bloody or dark, tarry stools symptoms of stroke (such as one-sided weakness, slurred speech, confusion) difficulty swallowing unusual or unexplained tiredness or weakness blood in urine blurring or changes of vision A few people may have an allergic reaction to this medicine. Symptoms can include difficulty breathing, skin rash, itching, swelling, or severe dizziness. If you notice any of these symptoms, seek medical help quickly. Extra Please speak with your doctor, nurse, or pharmacist if you have any questions about this medicine. [email or web address] IMPORTANT NOTE: This document tells you briefly how to take your medicine, but it does not tell youall there is to know about it. Your doctor or pharmacist may give you other documents about your medicine. Please talk to them if you have any questions. Always follow their advice. There is a more complete description of this medicine available in [employer]. Scan this code on your smartphone or tablet or use the web address below. You can also ask your pharmacist for a printout. If you have any questions, please ask your pharmacist. The display and use of this drug information is subject to Terms of Use. Copyright(c) 2022 [employer]. [employer]. All rights reserved. This information is not intended as a substitute for professional medical care. Always follow your healthcare professional's instructions. * Care Plan - Mikayla De Leon RN - 12/25/2023 5:28 AM EDT Clinical Goal(s): Patient will remain free from falls this shift (12/24/23 2100) Possible barriers to meeting goal(s)/advancing plan of care: patient diagnosis Stability of the patient: Moderately stable - low risk of patient condition declining or worsening Summary regarding today's goal(s): Met: yes Recommendations: continue with current plan of care * Care Plan - Cornelio Hanna RN - 12/24/2023 6:23 PM EDT Clinical Goal(s): Pt will be out of bed for all meals during this shift (12/24/23 0700) Possible barriers to meeting goal(s)/advancing plan of care: pain/discomfort Stability of the patient: Moderately stable - low risk of patient condition declining or worsening Summary regarding today's goal(s): Met: Patient was out of bed fin a chair for all 3 meals during this shift Recommendations: continue to encourage patient to get out of bed for meals and PRN * Ancillary Progress Note - Marco Antonio Finney PTA - 12/24/2023 11:22 AM EDT PROGRESS NOTE - Physical Therapy [facility]-[address] [address] Name: Lillian Feliciano Location: [facility] 6B-6019/D Date: 12/24/2023 Time: 1121 Lillian Feliciano is a/an 88 year old female. Patient Status: Inpatient Insurance: Payor: [employer] MEDICARE ADVANTAGE Plan: SlipstreamO Product Type: *No Product type* Payor: [employer] [place] Plan: [employer] [facility] Product Type: HMO Patient Seen: at bedside, nursing cleared patient for therapy Patient Identified By: Name, ID Band and Date Diagnosis: Gait dysfunction, weakness, s/p percutaneous screw fixation of Right nondisplaced subcapital femoral neck fracture (12/22/23 1257) Status of treatment: Treatment completed (12/24/23 112) Orders: PT evaluation and treatment (12/22/23 1257) Weight Bearing Status: Non-weight bearing (12/24/23 112) Precautions: Alarms;Falls;Oxygen;Safety (12/24/23 112) Total Treatment Time--free text: 38 mins (12/24/23 112) Subjective: "I can try some exercises" Pain: Patient has complaints of pain. Pain located R hip. 10/29 P.T. Bed Mobility Sit-Supine: Moderate Assistance (12/23/23 1245) Transfers Sit-Stand: Moderate Assistance (12/24/23 112) Stand-Sit: Moderate Assistance (12/24/23 112) W/C-Bed/Mat: Moderate Assistance (12/24/23 112) Ambulation: No GT Balance Sit (Static): Good (12/23/23 1245) Sit (Dynamic): Good (12/23/23 1245) Stand (Static): Poor (12/23/23 1245) Stand (Dynamic): Poor (12/23/23 1245) Patient and or Family Goal(s): to get well and to return home Topic of Education: Weight bearing restrictions, Safety with mobility, Use of assistive device, andFall prevention Extremity Exercise Supine: Hip;Knee;Ankle;Isometrics (12/23/231244) Hip : Bilateral LE;2 sets of 10;Abduction (AA R LE, active L LE) (12/23/231244) Knee : Bilateral LE;2 sets of 10;SAQ;Heel slide (AA heelslide R LE, active SAQ B LE, active heel slide L LE) (12/23/231244) Ankle: Bilateral LE;2 sets of 10;Dorsiflexion;Plantar flexion (12/23/231244) Isometrics: Bilateral LE;2 sets of 10;Quad sets;Glute sets (12/23/231244) Method of Education: Demonstrated the above task to pt: verbalized understanding and or agreement of this information and demonstrated the exercise and or task Treatment Provided: Therapeutic Activities 15 minutes: transfer training education R LE NWB weight bearing precautions Therapeutic Exercises: 23 minutes Alarm Status Patient positioned in: Chair (12/24/231121) With: Call jean baptiste in reach (12/24/231121) Patient Education Review of Precautions: Safety;Fall;Weight Bearing Status (12/24/231121) Review of Exercises: Pt Demonstrated Exercise;Verbal Exercises Provided;Written Handout Provided (12/24/231121) Review of Home Program: Yes (12/24/231121) Safety Awareness: Patient verbalizes insight of current deficits;Patient demonstrates carryover of insight during functional tasks;Patient can communicate basic needs (12/24/231121) Preferred learning method: Combination (12/23/231244) Barriers to learning: Medical Status;Hearing (hard of hearing) (12/23/231244) Method of Education: Verbalized to patient;Demonstrated to patient;Patient demonstrated task (12/23/231244) Assessment: Pt tolerated tx fair with no reported increased pain or SOB. Pt did report feeling fatigued post tx session. Pt performed seated exercises in the chair to increase strength and ROM to improve functional mobility. Pt then performed 3 STS transfers from the chair and was able to maintain R LE NWB with cuing only. Pt stood for 90 secs, 120 secs and then 90 secs at the RW with Min A for standing balance. Pt left sitting up in the chair with feet elevated and bedside table in front of pt. No needs post tx session. Pt instructed to not get up without assistance. Deficits requiring P.T. treatment needs: Safety;Mobility;Balance;Weakness;Endurance (12/22/23 1257) Equipment needs: Rolling walker;Wheelchair;Bedside commode (12/23/23 124) Plan: Continue with current treatment plan established on evaluation. AM PAC Score with Stairs: 11 * Ancillary Progress Note - Solomon Jensen, PT - 12/23/2023 12:45 PM EDT PROGRESS NOTE - Physical Therapy [facility]-[address] [address] Name: Lillian Feliciano Location: [facility] 6B-[id number]/D Date: 12/23/2023 Time: 2:01 PM Lillian Feliciano is a/an 88 year old female. Patient Status: Inpatient Insurance: Payor: [employer] MEDICARE ADVANTAGE Plan: PAIE[place] PPO Product Type: *No Product type* Payor: [employer] [place] Plan: [employer]find [facility] Product Type: HMO Patient Seen: at bedside, nursing cleared patient for therapy Patient Identified By: Name, ID Band and Date Diagnosis: Gait dysfunction, weakness, s/p percutaneous screw fixation of Right nondisplaced subcapital femoral neck fracture (12/22/23 1257) Status of treatment: Treatment completed (12/23/231244) Orders: PT evaluation and treatment (12/22/231256) Weight Bearing Status: Non-weight bearing;RLE;Weight bearing as tolerated;RUE;LUE;LLE (flat foot NWB R LE) (12/23/231244) Precautions: Alarms;Falls;Oxygen;Safety (12/23/23 124) Total Treatment Time--free text: 31 minutes (12/23/231244) Subjective: Pt expressed willingness to participate in PT session. Pain: No complaints of pain P.T. Bed Mobility Sit-Supine: Moderate Assistance (12/23/231244) Transfers Sit-Stand: Moderate Assistance (mod A 1) (12/23/231244) Stand-Sit: Moderate Assistance (mod A 1) (12/23/231244) W/C-Bed/Mat: Maximal Assistance (max A 1) (12/23/231244) Ambulation: Distance ambulated (feet): 3 Assistive Device: Rolling walker and O2 .5L/min nc Assist: Moderate Assistance 1 Gait Characteristics: Decreased speed, Decreased step length, Unsteady, Increased trunk sway, fatigues easily, not safe to transfer or amb w/o assistance. NWB to flat foot NWB R LE maintained t/o PT session. Balance Sit (Static): Good (12/23/231244) Sit (Dynamic): Good (12/23/231244) Stand (Static): Poor (12/23/231244) Stand (Dynamic): Poor (12/23/231244) Patient and or Family Goal(s): to get well and to return home Topic of Education: Weight bearing restrictions, Safety with mobility, Goals/plan of care, Use of assistive device, and Fall prevention Extremity Exercise Supine: Hip;Knee;Ankle;Isometrics (12/23/231244) Hip : Bilateral LE;2 sets of 10;Abduction (AA R LE, active L LE) (12/23/231244) Knee : Bilateral LE;2 sets of 10;SAQ;Heel slide (AA heelslide R LE, active SAQ B LE, active heel slide L LE) (12/23/231244) Ankle: Bilateral LE;2 sets of 10;Dorsiflexion;Plantar flexion (12/23/231244) Isometrics: Bilateral LE;2 sets of 10;Quad sets;Glute sets (12/23/231244) Method of Education: Verbal discussion and explanation provided to pt: verbalized understanding andor agreement of this information Demonstrated the above task to pt: verbalized understanding and or agreement of this information Treatment Provided: Therapeutic Activities 13 minutes: bed mobility training transfer training education flat foot NWB R LE weight bearing precautions Therapeutic Exercises: 18 minutes Alarm Status Patient positioned in: Bed (supine, O2 .5L/min nc, brakes locked, bed lowest height, B upper and R lower rails up, HOB elevated to comfort, cooling unit R hip, scds B legs) (12/23/23 124) With: Bed alarm intact and functioning and call jean baptiste in reach (12/23/231244) Patient Education Review of Precautions: Safety;Weight Bearing Status;Fall (no amb or transfers w/o nursing assist) (12/23/231244) Safety Awareness: Patient verbalizes insight of current deficits;Patient demonstrates carryover of insight during functional tasks;Patient can communicate basic needs;Needs cueing supervision (12/23/231244) Preferred learning method: Combination (12/23/231244) Barriers to learning: Medical Status;Hearing (hard of hearing) (12/23/231244) Method of Education: Verbalized to patient;Demonstrated to patient;Patient demonstrated task (12/23/231244) Assessment: NWB to flat foot NWB R LE maintained t/o PT session. However, pt continues to present w/ deficits in strength, balance, endurance and functional mobility w/ pt requiring heavy, mod assistof 1 for all transfers, limited ambulation and sit to supine, AM PAC 12 and is not safe to attempt transfers or amb without assistance. At discharge would consider post acute care services which may include home health, retirement, outpatient therapy or in pt rehab. The level of care will be determined in collaboration with the patient, family/caregiver and care team members. Skilled PT at [facility] is warranted to address deficits in strength, endurance, balance and functional mobility and to continue to assess discharge needs. Deficits requiring P.T. treatment needs: Safety;Mobility;Balance;Weakness;Endurance (12/22/23 1257) Equipment needs: Rolling walker;Wheelchair;Bedside commode (12/23/231244) Plan: Continue with current treatment plan established on evaluation. AM PAC Score with Stairs: 12 * Ancillary Progress Note - Jeannette Romano COTA - 12/23/2023 10:57 AM EDT PROGRESS NOTE - Occupational Therapy [facility]-[address] [address] Name: Lillian Feliciano Location: [facility] 6B-6019/D Date: 12/23/2023 Time: 1057 AM Lillian Feliciano is a 88 year old female. Patient Status: Inpatient Insurance: Payor: [email or web address] MEDICARE ADVANTAGE Plan: PAIEON PPO Product Type: *No Product type* Payor: [employer] [place] Plan: [employer] [facility] Product Type: HMO Patient Seen: at bedside, nursing cleared patient for therapy Patient Identified By: Name, ID Band and Date Diagnosis: right hip fracture (12/23/231056) Status of treatment: Treatment completed (12/23/231056) Orders: OT evaluation and treatment (12/23/231056) Weight Bearing Status: Non-weight bearing;RLE (12/23/231056) Precautions: Alarms;Falls;Safety;Oxygen (12/23/231056) Total Treatment Time: 72 (12/23/231056) Subjective: "I am doing better than I was." Pain: Patient has complaints of pain. Pain located in R hip. Pt reported throughout tx pain was a 2-3/10. RN aware. Observations Consciousness: Alert (12/23/231056) Orientation: Oriented times 4 (12/23/231056) Cognitive Limitations: (pt is hard of hearing) (12/23/231056) Psychosocial: Patient can communicate basic needs;Patient can converse in a social setting (12/23/231056) Sitting posture: Rounded shoulders;Forward head (12/23/231056) Standing posture: Rounded shoulders;Forward head (12/23/231056) Safety awareness: The Patient verbalizes insight of current deficits.;The Patient demonstrates carryover of insight during functional tasks.;The Patient can communicate basic needs.;Needs cueing supervision. (12/23/231056) Other Findings Endurance: Sitting tolerance;Standing tolerance;Functional activity;Fair (12/22/23810) Light touch sensation: LUE;RUE;Intact (12/22/23810) Coordination: LUE;RUE;Fine motor;Intact (12/22/23810) Tone: Normal tone (12/22/23810) Current Functional Status: Activities of Daily Living: Self Care Able to provide self care: Yes (12/22/23810) Feeding: Independent (12/22/23810) Grooming: (setup while seated) (12/23/231056) Toileting: Contact Guard (12/23/231056) Dressing Upper Body: Minimal Assistance (12/23/231056) Lower Body: Minimal Assistance (12/23/231056) Bathing Upper Body: Supervision (Please comment) (12/23/231056) Lower Body: Moderate Assistance (12/23/231056) Functional Ambulation Assistive Device: Rolling walker (12/23/231056) Distance in feet:: 4 (2ft x2) (12/23/231056) Level of Assistance: Moderate Assistance (12/23/231056) OT Transfers Sit-Stand: Moderate Assistance (12/23/231056) Stand-Sit: Moderate Assistance (12/23/231056) Toilet: Moderate Assistance (BSC) (12/23/231056) Balance Sit (Static): Good (12/22/23810) Sit (Dynamic): Fair (12/22/23810) Stand (Static): Fair (12/22/23810) Stand (Dynamic): Poor (12/22/23810) Patient Education Education Topic: Energy conservation;Other - describe (AE, dressing affected limb first) (12/23/231056) Review of Precautions: Safety;Weight Bearing Status;Fall (12/23/231056) Teachback Test Complete: Yes (12/23/231056) Method of Education: Verbalized to patient;Demonstrated to patient;Written information provided to patient;Patient demonstrated task (12/23/231056) Education Provided to: Patient (12/23/231056) Response to Education: Receptive and agreeable to education (12/23/231056) Barriers to learning: Hearing (12/23/231056) Preferred learning method: Combination (12/23/231056) Alarm Status Patient positioned in: Chair (12/23/231056) With: Pressure pad alarm intact and functioning and call jean baptiste in reach (12/23/231056) Treatment Provided: Therapeutic Activity: 72 minutes Deficits requiring O.T. treatment needs: ADL/self- care;Endurance;IADL;Safety;Weakness;Functional mobility (12/22/23810) Assessment: Pt was agreeable to participating in treatment. OT AMPAC increased from 18 to 19. Pt required mod A with one other staff member as SBA sit <> stand with RW. She transferred from chair <> BSC with mod A. Prior to transfer pt was educated on NWB RLE and was able to appropriately maintain. Pt had BM/urinated on BSC. She was able to complete hygiene while seated with CGA. Pt returned to chair. She received and was educated on AE including: dressing stick, LH sponge, LH shoe horn, auto phone installer, and sock aid. This DAN demonstrated AE and pt received educational handout. Pt verbalized understanding. She completed bedside basin bath. Grooming was completed with setup. She required min A-supervision for UB bathing/dressing. She required min A using AE to doff and shay socks. She returned to standing with min A x2 and pt completed darell hygiene. She was left sitting in chair with feet elevated, call jean baptiste in reach, pressure pad on, and FORCE VARIATION EQUIPMENT TENDER present. Plan: Continue treatment as directed by the OT consult. Anticipated Frequency (on eval): 1 to 3 times per week (12/23/231056) Equipment Equipment used in Therapy: Bedside commode;Dressing Stick;Long-Handled Shoe Horn;Long-Handled Sponge;Rolling walker;Sock aid (12/23/231056) Equipment Needs Equipment needs: Grab bars;Raised toilet seat;Quill Buncher And Sorter;Rolling walker;Tub bench (pt has grab bars inshower) (12/22/23810) AM-PAC Help From Another Person Eating Meals: None (12/23/231056) Help From Another Person Taking Care of Personal Grooming: A little (12/23/231056) Help From Another Person To Put On/Take Off Upper Body Clothing: A little (12/23/231056) Help From Another Person To Put On/Take Off Lower Body Clothing: A little (12/23/231056) Help From Another Person Toileting: A little (12/23/231056) Help From Another Person Bathing: A little (12/23/231056) OT AM-PAC Score: 19 (12/23/231056) OT AM-PAC t-Scale Score: 40.22 (12/23/231056) HLM (Highest Level of Mobility) Goal: Level 4 move to chair/commode (12/23/23 0800) * Ancillary Progress Note - Kathy Wright RN - 12/23/2023 10:40 AM EDT CARE MANAGEMENT - ADULT TRANSITION NOTE [facility]-[address] [address] Name: Lillian Feliciano Location: [facility] 6B-6019/D Date: 12/23/2023 Time: 10:40 AM Risk Stratification Risk Stratification Psycho Social / Medical Concerns Identified: Adjustment to illness/injury (12/19/23 1501) Accessed [employer] to connect patients to social care resources: No (12/19/23 1501) OBRA or OPTIONS needed for placement: No (12/19/23 1501) Readmission Risk Score: 28.41 (12/23/23 0801) AM-PAC Score With Stairs : 14 (12/23/23 0800) Caregiver Information Patient Contacts Name Relation Home Work Mobile Elizabeth Spicer Adult Grandchild [phone] DanniellePina lim Adult Child [phone] Gerhard Feliciano Adult Child [phone] Transition of Care Checklist Transition of Care Checklist (aka Readmission Risk Score) Discharge Disposition: Post-Acute (12/23/23 1039) Post Acute: High (18-33%) (12/23/23 1039) Narrative: spoke with patient and using reposidic- patient agrees to rehab and would prefer [facility]. Message left with Karen from [facility] if able to accept over [facility]. [facility]oke with granddaughter Elizabeth she is confirming with patient on [facility] and no [facility]. 1108 spoke with Elizabeth- patient and family would like [facility]- request for auth sent to [facility] for auth to [facility]. Anticipated Transportation at Discharge: family Patient/Family Expectations: rehab Transition Planning Transition Planning Transition Plan/Considerations: CM provided contact information and will update plan as needs arise(12/23/231038) [facility] Quality Rating provided to patient: Yes (12/23/231038) Repisodic Choice provided to patient: Yes (12/23/231038) Transition plan discussed with - Enter name and phone #: patient (12/23/231038) Insurance Considerations: Precertification needed for Post-Acute Care (12/23/231038) Referral to Community Agency : N/A (12/23/231038) Post-Acute Care needs identified and Referrals Completed: N/A (12/23/231038) Additional Considerations: none Care Management will continue to monitor and assist with discharge planning needs * Care Plan - Gina Linares RN - 12/23/2023 5:06 AM EDT Clinical Goal(s): Pt will remain free of falls through the night (12/22/232005) Possible barriers to meeting goal(s)/advancing plan of care: current diagnosis Stability of the patient: Moderately stable - low risk of patient condition declining or worsening Summary regarding today's goal(s): Met: Pt remained free of falls through the night Recommendations: continue with current POC * Care Plan - Neena Walden RN - 12/22/2023 5:16 PM EDT Clinical Goal(s): Patient will get OOB to chair this shift. (12/22/23729) Possible barriers to meeting goal(s)/advancing plan of care: admitting diagnosis, pain Stability of the patient: Moderately stable - low risk of patient condition declining or worsening Summary regarding today's goal(s): Met: Patient got OOB to chair this shift. Recommendations: Continue to encourage patient to get OOB to chair. Assess for pain and medicate per MAR as needed. Keep call jean baptiste within reach. * Ancillary Progress Note - Makeda Villanueva RN - 12/22/2023 3:55 PM EDT CARE MANAGEMENT - ADULT TRANSITION NOTE [facility]-[address] [address] Name: Lillian Feliciano Location: [facility] 6B-6019/D Date: 12/22/2023 Time: 3:59 PM Risk Stratification Risk Stratification Psycho Social / Medical Concerns Identified: Adjustment to illness/injury (12/19/23 1501) Accessed [employer] to connect patients to social care resources: No (12/19/23 1501) OBRA or OPTIONS needed for placement: No (12/19/23 1501) Readmission Risk Score: 31.69 (12/22/23 1201) AM-PAC Score With Stairs : 8 (12/22/23 1257) Caregiver Information Patient Contacts Name Relation Home Work Mobile Elizabeth Spicer Adult Grandchild [phone] DanniellePina lim Adult Child [phone] Gerhard Feliciano Adult Child [phone] Transition of Care Checklist Narrative: Spoke with patient and daughter and patient has now decided that she would like to go toher granddaughter Elizabeth Barrett home. Daughter made aware that patient will require 2 people to assist her at all times. Per daughter patient will have 2 people with her at all times and they are able to care for her mother. Patient agreeable to home health and no preference on agency. Referral made to [facility] home health. [facility] did get back to CM that they are unable to accept patient due to the non weight bearingstatus. Anticipated Transportation at Discharge: Family Patient/Family Expectations: home with home health Transition Planning Additional Considerations: Care Management will continue to monitor and assist with discharge planning needs * Pt Handout (on AVS) - Neena Walden RN - 12/22/2023 3:53 PM EDT [id number] Heart Failure What is heart failure? The heart is a muscle that pumps oxygen-rich blood to all parts of the body. When you have heart failure, the heart can?t pump as well as it should. Or the heart muscle can?t relax and fill the pumping chamber with blood. Blood and fluid may back up into the lungs. This causes heart failure. And itcauses pulmonary edema. Some parts of the body also don?t get enough oxygen-rich blood. This means they can't work well. These problems lead to the symptoms of heart failure. What causes heart failure? Heart failure may result from: Heart valve disease High blood pressure Active infections of the heart valves or heart muscle, such as endocarditis A past heart attack Coronary artery disease Disease of the heart muscle (cardiomyopathy) Heart problems that are present at (congenital heart defects) Heart rhythm problems (arrhythmias) Long-term (chronic) lung disease and pulmonary embolism A reaction to medicines, such as those used for chemotherapy Anemia and too much blood loss Thyroid disorders Diabetes Alcohol and drug abuse Certain viral infections What are the symptoms of heart failure? The most common symptoms of heart failure are: Shortness of breath while resting, exercising, or lying flat Weight gain from water retention Visible swelling of the legs, ankles, and feet from fluid buildup. Sometimes the belly (abdomen)may swell. Severe tiredness (fatigue) and weakness Loss of appetite, nausea, and belly pain Cough that doesn?t go away. It can cause blood-tinged or frothy sputum. The severity of the condition and symptoms depends on how much of the heart's pumping ability has been affected. The first step in managing heart failure symptoms is knowing your baselines or what?s normal for you. How much do you weigh? Are you gaining weight but eating the same amount? How much can you do before you feel short of breath? Do your socks and shoes fit comfortably? Knowing what?s normal for you will help you see when symptoms are getting worse. Once you know your baselines, watchfor changes daily. The symptoms of heart failure may look like other health problems. Always see your healthcare provider for a diagnosis. How is heart failure diagnosed? Your healthcare provider will ask about your health history. They will give you a physical exam. You may need tests, such as: Chest X-ray. This test makes images of internal tissues, bones, and organs on film. This test shows the size and shape of your heart. Fluid in the lungs will also show up on X-ray. Echocardiogram. This test is also called an echo. It uses sound waves to assess the motion of the heart?s chambers and valves. The sound waves make an image on the screen as an ultrasound transducer is passed over the heart. This shows how well the heart pumps and relaxes. It also shows the thickness of the heart marie, and if the heart is enlarged. It can assess heart valve function and bloodflow as well. It is one of the most useful tests because it shows a lot of information about the heart?s function. And it can help guide treatment choices. Electrocardiogram. This test records the electrical activity of the heart. It shows abnormal rhythms. It can sometimes find heart muscle damage. BNP testing. B-type natriuretic peptide (BNP) is a hormone released from the ventricles that occurs with heart failure. BNP levels are useful in the quick assessment of heart failure. The higher the BNP levels, the worse the heart failure. BNP is measured from a blood sample. Cardiac MRI. This test uses a magnetic field to make images of the heart and its nearby tissues.It can assess how the heart muscle and valves are working. How is heart failure treated? The cause of heart failure will guide the treatment plan. If heart failure is caused by a valve problem or coronary heart disease, then you may need a procedure. This may be a percutaneous coronary intervention. Or it may be surgery. If heart failure is caused by a problem, such as anemia or an infe ction, you may need medicine to treat this problem. Some causes of heart failure are reversible or short-term, such as an acute infection. For many causes of heart failure there is no cure. But many forms of treatment can help with symptoms. They are listed below. Lifestyle changes These healthy habits may help with heart failure: Controlling blood pressure Controlling blood sugar if you have diabetes Quitting smoking Maintaining a healthy weight. Losing weight, if needed Regular exercise Limiting salt and fat in your diet Not drinking alcohol or using illicit drugs Getting enough rest Reducing stress Other important lifestyle habits include getting vaccines, such as for the flu and pneumococcal pneumonia. If you have sleep problems, getting a sleep study can help find out what?s causing them. You may need to wear a C-PAP mask while you sleep. This will make sure you get enough oxygen. Too little oxygen can put stress on your heart. Medicines Many types of medicines are available for heart failure. They include: Angiotensin converting enzyme (MADALYN) inhibitors. These lower the pressure inside the blood vessels. This reduces the pressure that the heart has to pump against. They can also help the heart have better pumping ability over time. Angiotensin receptor blockers (ARB). Some people get a cough and need to stop taking MADALYN inhibitors. If that happens, an ARB may work for you. These help relax blood vessels and reduce stress on the heart. Angiotensin receptor-neprilysin inhibitors (ARNIs). This medicine combines an ARB and a neprilysin inhibitor. This can help the heart as noted above. And it can promote salt and water loss. This medicine is preferred over MADALYN inhibitors and ARBs alone. Diuretics. These reduce the amount of fluid in the body. They are among the most important medicines in helping control fluid buildup in the body. Beta-blockers. These reduce the heart?s tendency to beat faster. They can also help the heart pump better over time. Aldosterone blockers. These block the effects of the hormone aldosterone. This hormone causes sodium and water retention. Vasodilators. These include hydralazine and nitroglycerin. These widen (dilate) the blood vessels. They reduce the workload on the heart. Statins or PCSK9 inhibitors. These lower the amount of bad cholesterol in your blood. They are not used to treat heart failure. But you may take one if you have high cholesterol. Or you may take one if you have had a past heart attack and are at risk for heart failure. People who have inherited forms of high cholesterol (familial hypercholesterolemia) may get help from PCSK9 inhibitors. These medicines lower cholesterol. Sodium-glucose cotransporter-2 (SGLT2) inhibitors. They block your kidneys from reabsorbing sugar from the blood. This helps your body get rid of extra salt and water and so lowers your blood pressure. Lowering your blood pressure eases the strain on your heart. Digitalis. This medicine helps the heart beat stronger. It may help with controlling heart rate if there is an abnormal heart rhythm. Antiarrhythmics. These help keep normal heart rhythm. Sinus node I-f channel meera. This may be used to lower your heart rate. It may result in lessstress on your heart. This medicine is reserved for people who still have high resting heart rates despite use of beta blockers. Heart procedures These include opening blocked arteries in the heart. This brings back blood flow to the heart muscle. It helps the ventricles squeeze as they should. The procedure can be done in the cardiac catheterization lab. It uses balloons to push plaque and blood clots out of the artery. It also uses stents to keep the artery open. This can also be done by bypassing blockages during surgery (coronary artery bypass surgery). Heart valve repair or replacement In some cases, medicines can?t help heart failure caused by heart valves that are narrowed (stenosed) or leak (regurgitant). The heart valve can be repaired or replaced. This can be done as an open-heart procedure. Or it can be done by going through a small tube (catheter) that is put into an artery or vein. Pacemaker If your heart failure has also damaged your heart?s electrical wiring system, a pacemaker can be implanted. This is done to restore normal heart rate and regularity. A cardiac resynchronizing pacemaker is used when one of the natural heart wires is damaged. This is often the wire located in the left ventricle. These pacemakers use implanted left and right sided wires to restore normal timing of the heart contraction in order to improve heart function. ICD (implantable cardioverter defibrillator) When the heart muscle is damaged, dangerous heart circuits can form in the heart muscle. This leadsto heart rhythms that can cause . An ICD is implanted in the body to sense and treat these cardiac arrest rhythms. It does this by overdrive pacing the heart rhythm. Or it sends an energy shock to the heart. VAD (ventricular assist device) This device is put in the chest during a surgery. It connects to an outside motor. The motor helps pump blood from the heart to the rest of the body. VADs can allow people with advanced heart failureto improve their overall symptoms and to walk more. This can be used as a long-term treatment. Or it can be used while someone waits for a donor heart for a transplant. Heart transplant In some cases, the diseased heart must be replaced with a healthy one from a donor. Talk with your healthcare providers about the risks, benefits, and possible side effects of all treatments. What are possible complications of heart failure? Complications of heart failure include: Fluid buildup in the lungs (pulmonary edema) Kidney and liver failure Stroke Abnormal heart rhythms How daily issues affect your health Many things in your daily life impact your health. This can include transportation, money problems,housing, access to food, and child care cook. If you can?t get to medical appointments, you may not receive the care you need. When money is tight, it may be difficult to pay for medicines. And living farfrom a grocery store can make it hard to buy healthy food. If you have concerns in any of these or other areas, talk with your healthcare team. They may know of local resources to assist you. Or they may have a staff person who can help. Weldon points about heart failure When you have heart failure, the heart can?t pump as well as it should. Heart failure may result from health problems that affect the heart, such as high blood pressure, coronary artery disease, and heart attack. Some common symptoms are shortness of breath, weight gain, and visible swelling of the legs and ankles. A chest X-ray can help diagnose lung congestion. Treatment varies based on the cause of heart failure. Most people are advised to make certain lifestyle changes and to take certain medicines, often for life. Procedures, such as coronary intervention and surgery, may be needed. Next steps Tips to help you get the most from a visit to your healthcare provider: Know the reason for your visit and what you want to happen. Before your visit, write down questions you want answered. Bring someone with you to help you ask questions and remember what your provider tells you. At the visit, write down the name of a new diagnosis, and any new medicines, treatments, or tests. Also write down any new instructions your provider gives you. Know why a new medicine or treatment is prescribed, and how it will help you. Also know what theside effects are. Ask if your condition can be treated in other ways. Know why a test or procedure is recommended and what the results could mean. Know what to expect if you do not take the medicine or have the test or procedure. If you have a follow-up appointment, write down the date, time, and purpose for that visit. Know how you can contact your healthcare provider if you have questions, especially after officehours or on weekends. Last Reviewed Date: 03/19/202319997862-5965 [employer]. All rights reserved. This information is not intended as a substitute for professional medical care. Always follow your healthcare professional's instructions. * Pt Handout (on AVS) - Neena Walden RN - 12/22/2023 3:53 PM EDT DM91 Tracking Symptoms of Heart Failure If you have heart failure, being aware of even small changes in your body can help you manage your condition. Here are common symptoms of heart failure: Fluid retention. You may notice swelling in the lower half of your body, especially the legs, feet, and ankles. Sometimes your shoes may not fit. This can lead to sudden weight gain. Weight gain. Weigh yourself every morning after waking and peeing but before eating or drinking.Weigh yourself without clothing or with the same amount of clothing. Tell your healthcare provider if you suddenly gain 2 or more pounds in 1 day, or more than 5 pounds in 1 week. Or report whatever weight gain you were told by your healthcare provider. Belly (abdominal) swelling or stomach pain. You may notice your pants fit tight or that you haveto adjust the fit of your belt. Shortness of breath or coughing. Your heart can't pump as well as it should, so fluid can back up into your lungs. You may be breathless, which can cause you to wake up at night or cause shortnessof breath when lying flat on your back. You may also feel short of breath doing tasks that you had no problems with before. These might be checking the mail or walking up 1 flight of stairs. If you develop a cough, what you cough up may be foamy or frothy. Let your healthcare provider know if this happens. If you have severe shortness of breath, call 911. Trouble sleeping. Let your healthcare provider know right away if you find yourself needing to use more pillows or sleep in a chair rather than a bed to prevent trouble breathing. Tiredness (fatigue). Blood flow to the muscles may be reduced. This may make you feel tired during the day. Take time to rest and talk with your healthcare provider. Nausea or loss of appetite. Not enough blood in your digestive system or swelling of the organs from fluid retention can make you feel full more quickly than usual or even sick to your stomach. Tell your healthcare provider. Disorientation, memory loss, or confusion. Changes in the amount of sodium in your blood can cause confusion. If you or someone else notices this, call 911. Increased heart rate or fluttering heartbeats (palpitations). You may feel like your heart is racing or throbbing. To make up for the loss of pumping capacity, your heart beats faster. Tell your healthcare provider if you notice these. Monitoring symptoms Watching how your symptoms change helps you keep heart failure under control. Take action as soon as you notice a symptom getting worse or you have a new symptom. This helps prevent a problem from becoming serious. You may even be able to stay out of the hospital. Use a diary or a calendar to track your symptoms and weight. You can also review the diary with your healthcare provider, or if you need to call and discuss your status over the phone. Last Reviewed Date: 04/19/202319999761-1245 [employer]. All rights reserved. This information is not intended as a substitute for professional medical care. Always follow your healthcare professional's instructions. * Pt Handout (on AVS) - Neena Walden RN - 12/22/2023 3:53 PM EDT DM58 Heart Failure and Physical Activity If you have heart failure, you may wonder if physical activity is good for you. You may worry that putting more strain on your heart could make your heart worse. But the heart is a muscle. And like other muscles, it gets stronger with use. Regular and moderate physical activity is helpful. This includes walking, swimming, dancing, or biking. This type of activity can: Improve heart failure symptoms Reduce stress and improve your mood Increase your energy levels Lower blood pressure Improve circulation Help you lose weight Improve quality of life These are all important factors in staying healthy. They are even more important when you have heart failure. Being physically active with this condition can be hard. You may have to take some safety measures.Talk with your healthcare provider before starting a physical activity program. You may not be usedto physical activity. And you may be nervous about it. Your provider can help you create a plan that fits your needs. Ask your provider if a cardiac rehab program is right for you. Last Reviewed Date: 03/19/202319999304-7398 [employer]. All rights reserved. This information is not intended as a substitute for professional medical care. Always follow your healthcare professional's instructions. * Care Plan - Gina Linares RN - 12/22/2023 5:11 AM EDT Clinical Goal(s): Pt pain will remain 5/10 or less through the night (12/21/231933) Possible barriers to meeting goal(s)/advancing plan of care: post hip Stability of the patient: Moderately stable - low risk of patient condition declining or worsening Summary regarding today's goal(s): Met: Pt pain remained 5/10 or less with scheduled pain medication. Pt required no PRN pain medications Recommendations: PT/OT, UOOB as tolerated * Pt Handout (on AVS) - Kimi Owens RN - 12/21/2023 7:27 PM EDT Images from the original note were not included. Hip Fracture Prevention - Video A broken hip is serious and disabling. With a broken hip, you may not be able to care for yourself.Sometimes, complications from a hip fracture can lead to . Avoid a broken hip with these basicsafety measures. To view the video go to this web address: [email or web address].[email or web address] Or, scan this QR code with your smart phone [employer]. * Pt Handout (on AVS) - Kimi Owens RN - 12/21/2023 7:27 PM EDT Images from the original note were not included. Hip Fracture - Video This is a break of the upper part of your femur. The femur is the long bone in your upper leg. At the top of the femur is the "head." This is the ball that fits into your hip socket. A hip fracture may happen at the "neck" of the femur (the thin portion of bone under the head). Fractures may also happen below the neck. To view the video go to this web address: https://bit.VoltServer/3wohVJF Or, scan this QR code with your smart phone [employer]. * Care Plan - Neena Walden RN - 12/21/2023 5:23 PM EDT Clinical Goal(s): Patient will report adequate pain control this shift by verbalizing all pain scores 6/10 or less. (12/21/23917) Possible barriers to meeting goal(s)/advancing plan of care: admitting diagnosis, pain, s/p surgery Stability of the patient: Moderately stable - low risk of patient condition declining or worsening Summary regarding today's goal(s): Not Met: Patient reported pain levels above 6/10 this shift. Recommendations: Continue to assess pain and medicate per MAR. Use ice and repositioning as tolerated for comfort. Keep call jean baptiste within reach. Encourage IS usage and mobility. * Ancillary Progress Note - Makeda Villanueva RN - 12/21/2023 10:30 AM EDT CARE MANAGEMENT - ADULT TRANSITION NOTE [facility]-[address] [address] Name: Lillian Feliciano Location: [facility] 6B-6019/D Date: 12/21/2023 Time: 10:30 AM Risk Stratification Risk Stratification Psycho Social / Medical Concerns Identified: Adjustment to illness/injury (12/19/23 150) Accessed Neighborly to connect patients to social care resources: No (12/19/23 150) OBRA or OPTIONS needed for placement: No (12/19/231500) Readmission Risk Score: 25.14 (12/21/23 0800) AM-PAC Score With Stairs : 6 (12/21/23 0918) Caregiver Information Patient Contacts Name Relation Home Work Mobile [place] Spicerradha Adult Grandchild [phone] DanniellePina Adult Child [phone] Gerhard Feliciano [phone] Transition of Care Checklist Narrative: Discussed during IDT. No discharged at this time. Patient is for the OR today. CM will continue to follow for DC needs. Anticipated Transportation at Discharge: family vs FAME Patient/Family Expectations[facility] Transition Planning Additional Considerations: Care Management will continue to monitor and assist with discharge planning needs * Care Plan - Marcia Zapien RN - 12/21/2023 5:49 AM EDT Clinical Goal(s): Pt will report pain <6/10 this shift. (12/20/232114) Possible barriers to meeting goal(s)/advancing plan of care: Pt's Dx of R hip fracture. Stability of the patient: Moderately stable - low risk of patient condition declining or worsening Summary regarding today's goal(s): Met: Pt reported only mild pain this shift. Recommendations: Continue to monitor pt's pain scale assessments and treat per MAR and using non-pharmacologic methods (breathing techniques, ice, repositioning, distractions). Encourage good sleep hygiene (tv/lights off, PM oral care, maintain a quiet environment). Maintain bedrest until post-operative. Continue to monitor pt's I&Os. * Care Plan - Lauren Mayorga RN - 12/20/2023 3:55 PM EDT Clinical Goal(s): Pts pain will be controlled with medications (12/20/23 0830) Possible barriers to meeting goal(s)/advancing plan of care: Hip fracture Stability of the patient: Moderately stable - low risk of patient condition declining or worsening Summary regarding today's goal(s): Met: Pts pain has been controlled this shift Recommendations: Monitor pain, give medications per order, reposition Q2 hours, apply ice. * Ancillary Progress Note - Makeda Villanueva RN - 12/20/2023 10:41 AM EDT CARE MANAGEMENT - ADULT TRANSITION NOTE [facility]-[address] [address] Name: Lillian Feliciano Location: [facility] 6B-6019/D Date: 12/20/2023 Time: 10:41 AM Risk Stratification Risk Stratification Psycho Social / Medical Concerns Identified: Adjustment to illness/injury (12/19/23 1501) Accessed Neighborly to connect patients to social care resources: No (12/19/23 1501) OBRA or OPTIONS needed for placement: No (12/19/23 1501) Readmission Risk Score: 26.18 (12/20/23 0801) AM-PAC Score With Stairs : 8 (12/20/23 0830) Caregiver Information Patient Contacts Name Relation Home Work Mobile Elizabeth Spicer Adult Grandchild [phone] Dannielle,Pina Adult Child [phone] Gerhard Feliciano Adult Child [phone] Transition of Care Checklist Narrative: No anticipated DC at this time. Spoke with patient who shares she would be ok with [facility] on DC. Cm will continue to follow Anticipated Transportation at Discharge: Family if able Patient/Family Expectations: SNF Transition Planning Additional Considerations: Care Management will continue to monitor and assist with discharge planning needs * Care Plan - Grace Grossman RN - 12/20/2023 5:06 AM EDT Clinical Goal(s): Pt will report adequate pain control (12/19/232032) Possible barriers to meeting goal(s)/advancing plan of care: acuity of illness Stability of the patient: Moderately stable - low risk of patient condition declining or worsening Summary regarding today's goal(s): Met: Pt reported adequate pain control this shift Recommendations: monitor pain level and administer analgesia per order * Communication - Natacha Zapien CRNP - 12/19/2023 8:[address] Morales note from today, plan for this patient is to go to the OR for a percutaneous screw fixation Spoke via tiger text with Mitchell Morales PA-C for orthopedics. Plan of care; Stop heparin drip at midnight in preporation for surgery tomorrow. RITIKA Seth * Ancillary Progress Note - Makeda Villanueva RN - 12/19/2023 3:04 PM EDT CARE MANAGEMENT - TRAUMA INITIAL SCREENING [facility]-[address] [address] Name: Lillian Feliciano Location: [facility] 6B-6019/D Date: 12/19/2023 Time: 3:04 PM Discussed with Trauma and with the interdisciplinary care team. This Technical Laboratory Asst performed a chartreview and met with patient at bedside to complete admission screen and assessed needs for transition planning. The ocular care technologist role and services were explained and emotional support was provided. Chief Complaint: Fall Prior Living Arrangements What was your living situation prior to admission/observation?: Independently (12/19/23 1501) Living Quarters: Apartment (12/19/23 1501) Number of steps to enter living quarters:: 0 has elevator (12/19/23 1501) How many stories is the dwelling?: N/A (12/19/23 1501) Prior Level of Functioning Describe the patient's ability prior to admission/observation to perform ADLs: Performs independently (12/19/23 1501) Describe the patient's mobility status prior to admission: Patient ambulates independently (12/19/23 1501) Patient uses assistive device: Yes (12/19/23 150) If yes, choose:: Cane (very rarely uses the cane) (12/19/23 150) Caregiver Information Patient Contacts Name Relation Home Work Mobile Elizabeth Spicer Adult Grandchild [phone] Pina Spicer Adult Child [phone] Gerhard Feliciano Adult Child [phone] Risk Stratification Risk Stratification Psycho Social / Medical Concerns Identified: Adjustment to illness/injury (12/19/23 150) Accessed Neighborly to connect patients to social care resources: No (12/19/23 150) OBRA or OPTIONS needed for placement: No (12/19/23 150) AM-PAC Score With Stairs : 11 (12/19/23 1400) Prior to Admission Services Services Prior to Admission CELL TUBER HAND Services (Services received within the last 30 days with exception, Psych within last two years): Durable Medical Equipment (12/19/23 150) CELL TUBER HAND Durable Medical Equipment (DME) in home: Cane;Walker Rolling;Bedside commode;Shower chair/bench(12/19/23 150) [place] Dept[employer]ging (PDA) Waiver Program: N/A (12/19/23 150) CELL TUBER HAND Transportation (Services received within the last 30 days): Patient drives self (12/19/23 150) Outpatient Technical Laboratory Asst: No care body service team member to display CAGE Questionnaire (Please check the correct response) One positive response to any of these questions indicates a need to perform the MAST questionnaire. (C) Have you ever felt the need to CUT DOWN on drinking? no (A) Have you ever felt ANNOYED by criticism of drinking? no (G) Have you ever had GUILTY FEELINGS about drinking? no (E) Have you ever taken a morning EYE MECHANICAL PROCESS ENGINEER? no Comments: Patient to [facility] 12/18 after having a fall at home and having a closed right hip fracture. Prior to admission patient resided alone a 3rd floor apartment with elevator to access her apartment. Patient was independent with ADL's, IADL's and able to drive self to appointments. Patient uses a cane at times for ambulation. Patient also has walker with wheels and access to BSC. Patient agreeableto SNF rehab on DC and would like [facility] or [facility]. Patient also agreeable to [facility] if insurance would cover. If able to go home on DC is agreeable to home health but has no preference on agency. Family to provide transportation on DC if able. Patient/Family Expectations: SNF or [facility] For further screening information, please refer to the Care Management flow document. * ED Environmental Assistant Note - Yuri Negrete RN - 12/19/2023 9:47 AM EDT 0942: Trauma alert called pre hospital. 0947: Pt arrived via EMS, C collar in place. This RN, Yesi, RN, Anita, RN and Janice, EDT at bedside. Pt states she was sleeping in her chair and fell out of her chair around 0630 this morning. Was on the floor for about 3 hours, states their was maintenance men from her apartment complexes knocking on the door, she tried to stand up to answer the door and fell again landing on her knees. They came in and called 911. Pt states she did hit her head, no LOC. Pt is on Elliquis. Pt c/o right knee pain. 0956: Provider at bedside. C Collar removed by provider. 1000: Pt getting bedside XR. 1007: To CT. 1013: To XR. 1040: Pt returned safety to ED stretcher. VSS. CCM. Daughter at bedside. Call jean baptiste within reach. 1230: Hourly neuros d/c per provider. documented in this encounter Plan of Treatment Upcoming Encounters Date Type Department Care Team (Late st Contact Info) Description 01/09/2024 11:00 AM EDT Office Visit Orthopaedics [facility] [address] [facility] [place] [address] Yg Pickering PA-C [address] [place] [address] 02/16/2024 10:00 AM EDT Office Visit [facility] [address] [place] [address] Nel Rajan PA-C [address] [place] [address] 04/04/2024 9:00 AM EDT Cardiac Studies [facility] [address] [place] [address] [facility] [address] [place] [address] Scheduled Orders Name Type Priority Associated Diagnoses Orde r Schedule XR HIP UNILAT 2-3 VIEWS INCLUDING AP PELVIS Medical Imaging Routine One Time for 1 Occurrences starting 12/19/2023 until 12/19/2023 EKG EKG STAT Fall Perform Now for 1 Occurrences starting 12/19/2023 until 12/19/2023 XR INTRA-OP C-ARM CASE Medical Imaging Routine One Time for 1 Occurrences starting 12/21/2023 until 12/21/2023 Health Maintenance Due Date Last Done Comments [...] Medical Devices Implanted Type Area Filter Press Pumper Device Identifier Shelf Expiration Date Model / Serial / Lot Lens 21.0 Jerome - [id number] - [id number] Implanted:Qty: 1 on 01/28/2023 by Christian Woo DO at OR [facility] Lens Right: Eye [employer] 10/12/2025 [id number] / [id number] / [place] 6.5mm Partially Threaded (20mm) Screws, Non-Sterile 90mm Implanted:Qty: 2 on 12/21/2023 by Sulaiman Morales MD at OR [facility] Screw Right: Hip DENISE : ORTHOPAEDICS N/A [id number] / N/A / N/A Description:From sterile set on field. No LOT #, Expiration date or serial # present. WD# [id number] per CDM Team Denise 6.5mm Partially Threaded (20mm) Screws, Non-Sterile 95mm Implanted:Qty: 1 on 12/21/2023 by Sulaiman Morales MD at [facility] Screw Right: Hip DENISE N/A [id number] / N/A / N/A Description:From sterile set on field. No LOT #, Expiration date or serial # present. WD# [id number] per CDM Team Lens 20.5 [place] - [id number] 135 - [id number] Implanted:Qty: 1 on 01/04/2023 by Christian Woo DO at OR [facility] Left: Eye [facility] 07/15/2025 [id number] / [id number] / documented as of this encounter Procedures Procedure Name Priority Date/Time Associated Diagnosis Comments GLUCOSE METER, POINT OF CARE FATIMAH 12/26/2023 11:43 AM EDT GLUCOSE METER, POINT OF CARE FATIMAH 12/26/2023 7:32 AM EDT PT INR Routine 12/26/2023 5:00 AM EDT CBC Routine 12/26/2023 5:00 AM EDT EXTRA GREEN TOP WITH GEL Routine 12/26/2023 4:57 AM EDT EXTRA TUBES Routine 12/26/2023 4:57 AM EDT GLUCOSE METER, POINT OF CARE FATIMAH 12/25/2023 9:28 PM EDT GLUCOSE METER, POINT OF CARE FATIMAH 12/25/2023 4:52 PM EDT GLUCOSE METER, POINT OF CARE FATIMAH 12/25/2023 11:59 AM EDT GLUCOSE METER, POINT OF CARE FATIMAH 12/25/2023 7:41 AM EDT BASIC METABOLIC PANEL Routine 12/25/2023 6:11 AM EDT PT INR Routine 12/25/2023 6:11 AM EDT CBC Routine 12/25/2023 6:11 AM EDT GLUCOSE METER, POINT OF CARE FATIMAH 12/24/2023 9:20 PM EDT GLUCOSE METER, POINT OF CARE FATIMAH 12/24/2023 4:35 PM EDT GLUCOSE METER, POINT OF CARE FATIMAH 12/24/2023 11:40 AM EDT GLUCOSE METER, POINT OF CARE FATIMAH 12/24/2023 7:35 AM EDT BASIC METABOLIC PANEL Routine 12/24/2023 4:44 AM EDT PT INR Routine 12/24/2023 4:44 AM EDT CBC Routine 12/24/2023 4:44 AM EDT GLUCOSE METER, POINT OF CARE FATIMAH 12/23/2023 10:31 PM EDT GLUCOSE METER, POINT OF CARE FATIMAH 12/23/2023 4:35 PM EDT GLUCOSE METER, POINT OF CARE FATIMAH 12/23/2023 12:10 PM EDT GLUCOSE METER, POINT OF CARE FATIMAH 12/23/2023 7:12 AM EDT PT INR Routine 12/23/2023 5:06 AM EDT DIFFERENTIAL, AUTOMATED Routine 12/23/19 5:05 AM EDT BASIC METABOLIC PANEL Routine 12/23/2023 5:05 AM EDT CBC Routine 12/23/2023 5:05 AM EDT CBC Routine 12/23/2023 5:05 AM EDT GLUCOSE METER, POINT OF CARE FATIMAH 12/22/2023 9:43 PM EDT GLUCOSE METER, POINT OF CARE FATIMAH 12/22/2023 4:44 PM EDT GLUCOSE METER, POINT OF CARE FATIMAH 12/22/2023 11:42 AM EDT GLUCOSE METER, POINT OF CARE FATIMAH 12/22/2023 7:35 AM EDT BASIC METABOLIC PANEL Routine 12/22/2023 4:25 AM EDT PT INR Routine 12/22/2023 4:24 AM EDT CBC Routine 12/22/2023 4:24 AM EDT GLUCOSE METER, POINT OF CARE FATIMAH 12/21/2023 9:53 PM EDT GLUCOSE METER, POINT OF CARE FATIMAH 12/21/2023 4:37 PM EDT XR INTRA-OP C-ARM CASE Routine 2:03 PM EDT GLUCOSE METER, POINT OF CARE FATIMAH 12/21/2023 1:57 PM EDT SKELETAL FIXATION OF THIGH FRACTURE 12/21/2023 11:13 AM EDT Subcapital fracture of hip, right, closed, initial encounter ([facility] GLUCOSE METER, POINT OF CARE FATIMAH 12/21/2023 10:51 AM EDT GLUCOSE METER, POINT OF CARE FATIMAH 12/21/2023 7:21 AM EDT BASIC METABOLIC PANEL Routine 12/21/2023 4:24 AM EDT PT INR Routine 12/21/2023 4:24 AM EDT APTT STAT 12/21/2023 4:24 AM EDT CBC Routine 12/21/2023 4:24 AM EDT GLUCOSE METER, POINT OF CARE FATIMAH 12/20/2023 9:24 PM EDT APTT Routine 12/20/2023 9:15 PM EDT GLUCOSE METER, POINT OF CARE FATIMAH 12/20/2023 4:28 PM EDT APTT STAT 12/20/2023 3:07 PM EDT CBC STAT 12/20/2023 3:07 PM EDT GLUCOSE METER, POINT OF CARE FATIMAH 12/20/2023 11:40 AM EDT GLUCOSE METER, POINT OF CARE FATIMAH 12/20/2023 7:18 AM EDT COMPREHENSIVE METABOLIC PANEL Routine 12/20/2023 4:25 AM EDT PT INR Routine 12/20/2023 4:25 AM EDT PHOSPHORUS Routine 12/20/2023 4:25 AM EDT CBC Routine 12/20/2023 4:25 AM EDT MAGNESIUM Routine 12/20/2023 4:25 AM EDT GLUCOSE METER, POINT OF CARE FATIMAH 12/19/2023 9:26 PM EDT APTT STAT 12/19/2023 9:20 PM EDT GLUCOSE METER, POINT OF CARE FATIMAH 12/19/2023 4:59 PM EDT HEPARIN, UNFRACTIONATED STAT 12/19/19 2:32 PM EDT PT INR STAT 12/19/2023 2:32 PM EDT APTT STAT 12/19/2023 2:32 PM EDT CBC STAT 12/19/2023 2:32 PM EDT INFLUENZA A/B RSV SARS-COV2,PCR STAT 12/19/2023 11:38 AM EDT TOXICOLOGY, URINESCREEN W/ CONFIRMATION STAT 12/19/2023 11:06 AM EDT URINALYSIS, REFLEX TO MICROSCOPIC STAT 12/19/2023 11:06 AM EDT EXTRA GREEN TOP WITH GEL Routine 12/19/2023 10:36 AM EDT EXTRA TUBES Routine 12/19/2023 10:36 AM EDT DIFFERENTIAL, AUTOMATED STAT 12/19/19 10:36 AM EDT COMPREHENSIVE METABOLIC PANEL STAT 12/19/2023 10:36 AM EDT TYPE AND SCREEN STAT 12/19/2023 10:36 AM EDT CK STAT 12/19/2023 10:36 AM EDT CBC STAT 12/19/2023 10:36 AM EDT PT INR STAT 12/19/2023 10:36 AM EDT LACTATE,WHOLE BLOOD STAT 12/19/2023 1 0:36 AM EDT ETHANOL, MEDICAL STAT 12/19/2023 10:3 6 AM EDT CBC STAT 12/19/2023 10:36 AM EDT DIFFERENTIAL, TECHNOLOGIST REVIEW Routine 12/19/2023 10:36 AM EDT XR TIB/FIB 2 VIEWS STAT 12/19/2023 10 :31 AM EDT XR KNEE 4 OR MORE VIEWS STAT 12/19/19 24 10:31 AM EDT XR FEMUR MINIMUM 2 VIEWS STAT 12/19/2023 10:[address] HEAD/BRAIN WO CONTRAST STAT 12/19/2023 10:11 AM EDT XR CHEST 1 VIEW STAT 12/19/2023 10:07 AM EDT XR PELVIS AP VIEW STAT 12/19/2023 10: 07 AM EDT documented in this encounter Results * (ABNORMAL) GLUCOSE METER, POINT OF CARE (12/26/2023 11:43 AM EDT) [facility] Glucose Meter 172(H) 70 - 120 mg/dL 12/26/2023 11:55 AM EDT [facility] Blood Whole blood specimen / Unknown 12/26/2023 11:43 AM EDT 12/26/2023 11:55 AM EDT Yasmin Ji MD LAB POINT OF CARE TEST DOCKED DEVICE UNSOLICITED RESULTS Performing Organization Address City/[facility]/ZIP Co de Phone Number [facility] [address] [place] [address] * (ABNORMAL) GLUCOSE METER, POINT OF CARE (12/26/2023 7:32 AM EDT) Glucose Meter 141(H) 70 - 120 mg/dL 12/26/2023 7:44 AM EDT [facility] Blood Whole blood specimen / Unknown 12/26/2023 7:32 AM EDT 12/26/2023 7:44 AM EDT Yasmin Ji MD LAB POINT OF CARE TEST DOCKED DEVICE UNSOLICITED RESULTS Performing Organization Address [facility] Co de Phone Number [facility] [address] [place] [address] * (ABNORMAL) CBC (12/26/2023 5:00 AM EDT) [facility] WBC 6.22 4.00 - 10.80 K/uL 12/26/2023 7:14 AM EDT LABORATORY GL RBC 3.66 3.85 - 5.15 M/uL 12/26/2023 7:14 AM EDT LABORATORY GL HGB 8.7(L) 12.0 - 15.3 g/dL 12/26/2023 7:14 AM EDT LABORATORY GL HCT 28.5(L) 36.0 - 45.2 % 12/26/2023 7:14 AM EDT LABORATORY GL MCV 77.9 81.5 - 97.5 fL 12/26/2023 7:14 AM EDT LABORATORY GL MCH 23.8 27.0 - 34.0 pg 12/26/2023 7:14 AM EDT LABORATORY GL MCHC 30.5 32.0 - 36.0 g/dL 12/26/2023 7:14 AM EDT LABORATORY GL RDW 20.0 11.5 - 15.5 % 12/26/2023 7:14 AM EDT LABORATORY GL PLT 165 140 - 400 K/uL 12/26/2023 7:14 AM EDT LABORATORY GL MPV 11.7 6.6 - 11.1 fL 12/26/2023 7:14 AM EDT LABORATORY [facility] nRBCs 0 <=0 /100 WBCs 12/26/2023 7:14 AM EDT LABORATORY [facility] Blood Venous blood specimen / Unknown Venipuncture / Unknown 12/26/2023 5:00 AM EDT 12/26/2023 5:54 AM EDT Yasmin Ji MD LAB BLOOD ORDERABL ES Performing Organization Address [facility] de Phone Number LABORATORY [address] [address] * (ABNORMAL) PT INR (12/26/2023 5:00 AM EDT) [facility] Prothrombin Time 19.1(H) 11.6 - 15.2 seconds 12/26/2023 6:14 AM EDT LABORATORY [facility] INR 1.6(H) 0.8 - 1.2 12/26/2023 6:14 AM EDT LABORATORY [facility] Blood Venous blood specimen / Unknown Venipuncture / Unknown 12/26/2023 5:00 AM EDT 12/26/2023 5:54 AM EDT Narrative LABORATORY [facility] - 12/26/2023 6:14 AM EDT Warfarin Therapy INR: 2.0-3.0 conventional anticoagulation INR: 2.5-3.5 high intensity anticoagulation Liyah Saavedra MD LAB BLOOD OR DERABLES Performing Organization Address [facility] de Phone Number LABORATORY [address] [address] * EXTRA GREEN TOP WITH GEL (12/26/2023 4:57 AM EDT) Blood Venous blood specimen / Unknown Venipuncture / Unknown 12/26/2023 4:57 AM EDT 12/26/2023 5:54 AM EDT Yasmin Ji MD LAB BLOOD ORDERABL ES Performing Organization Address [facility] de Phone Number LABORATORY [address] [phone] * (ABNORMAL) GLUCOSE METER, POINT OF CARE (12/25/2023 9:28 PM EDT) Glucose Meter 147(H) 70 - 120 mg/dL 12/25/2023 9:55 PM EDT [facility] Blood Whole blood specimen / Unknown 12/25/2023 9:28 PM EDT 12/25/2023 9:55 PM EDT Yasmin Ji MD LAB POINT OF CARE TEST DOCKED DEVICE UNSOLICITED RESULTS Performing Organization Address City/[facility]/ZIP Co de Phone Number [facility] [address] [place] [address] * (ABNORMAL) GLUCOSE METER, POINT OF CARE (12/25/2023 4:52 PM EDT) Glucose Meter 146(H) 70 - 120 mg/dL 12/25/2023 4:55 PM EDT [facility] Blood Whole blood specimen / Unknown 12/25/2023 4:52 PM EDT 12/25/2023 4:55 PM EDT Yasmin Ji MD LAB POINT OF CARE TEST DOCKED DEVICE UNSOLICITED RESULTS Performing Organization Address [facility] Co de Phone Number [facility] [address] [place] [place] [address] * (ABNORMAL) GLUCOSE METER, POINT OF CARE (12/25/2023 11:59 AM EDT) Glucose Meter 176(H) 70 - 120 mg/dL 12/25/2023 12:06 PM EDT [facility] Blood Whole blood specimen / Unknown 12/25/2023 11:59 AM EDT 12/25/2023 12:06 PM EDT Yasmin Ji MD LAB POINT OF CARE TEST DOCKED DEVICE UNSOLICITED RESULTS Performing Organization Address City/[facility]/ZIP Co de Phone Number [facility] [address] [place] [address] * (ABNORMAL) GLUCOSE METER, POINT OF CARE (12/25/2023 7:41 AM EDT) Glucose Meter 155(H) 70 - 120 mg/dL 12/25/2023 7:52 AM EDT [facility] Blood Whole blood specimen / Unknown 12/25/2023 7:41 AM EDT 12/25/2023 7:52 AM EDT Yasmin Ji MD LAB POINT OF CARE TEST DOCKED DEVICE UNSOLICITED RESULTS Performing Organization Address [facility]/ZIP Co de Phone Number [facility] [address] [place] [address] * (ABNORMAL) PT INR (12/25/2023 6:11 AM EDT) Prothrombin Time 17.7(H) 11.6 - 15.2 seconds 12/25/2023 6:35 AM EDT LABORATORY [facility] INR 1.4(H) 0.8 - 1.2 12/25/2023 6:35 AM EDT LABORATORY [facility] Blood Venous blood specimen / Unknown Venipuncture / Unknown 12/25/2023 6:11 AM EDT 12/25/2023 6:14 AM EDT Narrative LABORATORY GL - 12/25/2023 6:35 AM EDT Warfarin Therapy INR: 2.0-3.0 conventional anticoagulation INR: 2.5-3.5 high intensity anticoagulation Liyah Saavedra MD LAB BLOOD OR DERABLES LABORATORY [address] [address] * (ABNORMAL) CBC (12/25/2023 6:11 AM EDT) WBC 6.36 4.00 - 10.80 K/uL 12/25/2023 6:23 AM EDT LABORATORY [facility] RBC 3.66 3.85 - 5.15 M/uL 12/25/2023 6:23 AM EDT LABORATORY [facility] HGB 8.9(L) 12.0 - 15.3 g/dL 12/25/2023 6:23 AM EDT LABORATORY GL HCT 28.7(L) 36.0 - 45.2 % 12/25/2023 6:23 AM EDT LABORATORY [facility] MCV 78.4 81.5 - 97.5 fL 12/25/2023 6:23 AM EDT LABORATORY [facility] MCH 24.3 27.0 - 34.0 pg 12/25/2023 6:23 AM EDT LABORATORY [facility] MCHC 31.0 32.0 - 36.0 g/dL 12/25/2023 6:23 AM EDT LABORATORY [facility] RDW 20.1 11.5 - 15.5 % 12/25/2023 6:23 AM EDT LABORATORY [facility] PLT 145 140 - 400 K/uL 12/25/2023 6:23 AM EDT LABORATORY [facility] MPV 11.0 6.6 - 11.1 fL 12/25/2023 6:23 AM EDT LABORATORY [facility] nRBCs 0 <=0 /100 WBCs 12/25/2023 6:23 AM EDT LABORATORY [facility] Blood Venous blood specimen / Unknown Venipuncture / Unknown 12/25/2023 6:11 AM EDT 12/25/2023 6:14 AM EDT Misael Lafleur DO LAB BLOOD ORDERABLES LABORATORY [facility] [address] [place] [address] * (ABNORMAL) BASIC METABOLIC PANEL (12/25/2023 6:11 AM EDT) BUN 22(H) 6 - 20 mg/dL 12/25/2023 6:30 AM EDT LABORATORY GL Creatinine 0.8 0.5 - 1.0 mg/dL 12/25/2023 6:30 AM EDT LABORATORY GL Estimated Glomerular Filtration Rate 76 >=60 mL/min 12/25/2023 6:30 AM EDT LABORATORY GL Comment:eGFR is calculated b ased on the CKD-EPI 2020 equation Sodium 140 135 - 146 mmol/L 12/25/2023 6:30 AM EDT LABORATORY [facility] Potassium 3.8 3.5 - 5.1 mmol/L 12/25/2023 6:30 AM EDT LABORATORY [facility] Chloride 101 98 - 107 mmol/L 12/25/2023 6:30 AM EDT LABORATORY [facility] CO2 33(H) 22 - 32 mmol/L 12/25/2023 6:30 AM EDT LABORATORY [facility] Anion Gap 6(L) 7 - 15 mmol/L 12/25/2023 6:30 AM EDT LABORATORY [facility] Glucose 167(H) 70 - 120 mg/dL 12/25/2023 6:30 AM EDT LABORATORY [facility] Calcium 8.9 8.4 - 10.2 mg/dL 12/25/2023 6:30 AM EDT LABORATORY [facility] Blood Venous blood specimen / Unknown Venipuncture / Unknown 12/25/2023 6:11 AM EDT 12/25/2023 6:14 AM EDT Misael Lafleur DO LAB BLOOD ORDERABLES LABORATORY [facility] [address] [place] [address] * (ABNORMAL) GLUCOSE METER, POINT OF CARE (12/24/2023 9:20 PM EDT) Glucose Meter 137(H) 70 - 120 mg/dL 12/24/2023 10:14 PM EDT [facility] Blood Whole blood specimen / Unknown 12/24/2023 9:20 PM EDT 12/24/2023 10:13 PM EDT Misael Lafleur DO LAB POINT OF CARE TE ST DOCKED DEVICE UNSOLICITED RESULTS [facility] [address] [place] [phone] * (ABNORMAL) GLUCOSE METER, POINT OF CARE (12/24/2023 4:35 PM EDT) Glucose Meter 201(H) 70 - 120 mg/dL 12/24/2023 4:41 PM EDT [facility] Blood Whole blood specimen / Unknown 12/24/2023 4:35 PM EDT 12/24/2023 4:41 PM EDT Misael Lafleur LAB POINT OF CARE TE ST DOCKED DEVICE UNSOLICITED RESULTS Performing Organization Address [facility] de Phone Number [facility] [address] [facility] [place] [address] * (ABNORMAL) GLUCOSE METER, POINT OF CARE (12/24/2023 11:40 AM EDT) Glucose Meter 197(H) 70 - 120 mg/dL 12/24/2023 11:49 AM EDT [facility] Blood Whole blood specimen / Unknown 12/24/2023 11:40 AM EDT 12/24/2023 11:49 AM EDT Misael Lafleur LAB POINT OF CARE TE ST DOCKED DEVICE UNSOLICITED RESULTS Performing Organization Address [facility] Phone Number [facility] [address] [place] [address] * (ABNORMAL) GLUCOSE METER, POINT OF CARE (12/24/2023 7:35 AM EDT) Glucose Meter 150(H) 70 - 120 mg/dL 12/24/2023 8:28 AM EDT [facility] Blood Whole blood specimen / Unknown 12/24/2023 7:35 AM EDT 12/24/2023 8:28 AM EDT Misael Lafleur LAB POINT OF CARE TE ST DOCKED DEVICE UNSOLICITED RESULTS Performing Organization Address [facility] Phone Number [facility] [address] [facility] [place] [address] * (ABNORMAL) PT INR (12/24/2023 4:44 AM EDT) Prothrombin Time 15.4(H) 11.6 - 15.2 seconds 12/24/2023 5:07 AM EDT LABORATORY [facility] INR 1.2 0.8 - 1.2 12/24/2023 5:07 AM EDT LABORATORY [facility] Blood Venous blood specimen / Unknown Venipuncture / Unknown 12/24/2023 4:44 AM EDT 12/24/2023 4:50 AM EDT Narrative LABORATORY [facility] - 12/24/2023 5:07 AM EDT Warfarin Therapy INR: 2.0-3.0 conventional anticoagulation INR: 2.5-3.5 high intensity anticoagulation Liyah Saavedra MD LAB BLOOD OR DERABLES LABORATORY [facility] [address] [place] [address] * (ABNORMAL) CBC (12/24/2023 4:44 AM EDT) WBC 6.84 4.00 - 10.80 K/uL 12/24/2023 5:53 AM EDT LABORATORY [facility] RBC 3.84 3.85 - 5.15 M/uL 12/24/2023 5:53 AM EDT LABORATORY [facility] HGB 9.2(L) 12.0 - 15.3 g/dL 12/24/2023 5:53 AM EDT LABORATORY [facility] HCT 30.4(L) 36.0 - 45.2 % 12/24/2023 5:53 AM EDT LABORATORY [facility] MCV 79.2 81.5 - 97.5 fL 12/24/2023 5:53 AM EDT LABORATORY [facility] MCH 24.0 27.0 - 34.0 pg 12/24/2023 5:53 AM EDT LABORATORY [facility] MCHC 30.3 32.0 - 36.0 g/dL 12/24/2023 5:53 AM EDT LABORATORY [facility] RDW 20.2 11.5 - 15.5 % 12/24/2023 5:53 AM EDT LABORATORY [facility] PLT 137(L) 140 - 400 K/uL 12/24/2023 5:53 AM EDT LABORATORY [facility] MPV 11.8 6.6 - 11.1 fL 12/24/2023 5:53 AM EDT LABORATORY [facility] nRBCs 0 <=0 /100 WBCs 12/24/2023 5:53 AM EDT LABORATORY [facility] Blood Venous blood specimen / Unknown Venipuncture / Unknown 12/24/2023 4:44 AM EDT 12/24/2023 4:50 AM EDT Misael Serrato Miquel LAB BLOOD ORDERABLES LABORATORY [address] [address] * (ABNORMAL) BASIC METABOLIC PANEL (12/24/2023 4:44 AM EDT) BUN 26(H) 6 - 20 mg/dL 12/24/2023 5:24 AM EDT LABORATORY [facility] Creatinine 0.7 0.5 - 1.0 mg/dL 12/24/2023 5:24 AM EDT LABORATORY [facility] Estimated Glomerular Filtration Rate 79 >=60 mL/min 12/24/2023 5:24 AM EDT LABORATORY [facility] Comment:eGFR is calculated b ased on the CKD-EPI 2020 equation Sodium 144 135 - 146 mmol/L 12/24/2023 5:24 AM EDT LABORATORY [facility] Potassium 4.2 3.5 - 5.1 mmol/L 12/24/2023 5:24 AM EDT LABORATORY [facility] Chloride 102 98 - 107 mmol/L 12/24/2023 5:24 AM EDT LABORATORY [facility] CO2 34(H) 22 - 32 mmol/L 12/24/2023 5:24 AM EDT LABORATORY [facility] Anion Gap 8 7 - 15 mmol/L 12/24/2023 5:24 AM EDT LABORATORY [facility] Glucose 136(H) 70 - 120 mg/dL 12/24/2023 5:24 AM EDT LABORATORY [facility] Calcium 8.5 8.4 - 10.2 mg/dL 12/24/2023 5:24 AM EDT LABORATORY [facility] Blood Venous blood specimen / Unknown Venipuncture / Unknown 12/24/2023 4:44 AM EDT 12/24/2023 4:49 AM EDT Misael Serrato Miquel DO LAB BLOOD ORDERABLES LABORATORY [facility] [address] [place], [place] [id number] * (ABNORMAL) GLUCOSE METER, POINT OF CARE (12/23/2023 10:31 PM EDT) Glucose Meter 137(H) 70 - 120 mg/dL 12/23/2023 10:35 PM EDT [facility] Blood Whole blood specimen / Unknown 12/23/2023 10:31 PM EDT 12/23/2023 10:35 PM EDT Misael Serrato Miquel LAB POINT OF CARE TE ST DOCKED DEVICE UNSOLICITED RESULTS Performing Organization Address [facility] de Phone Number [facility] [address] [place] [phone] * (ABNORMAL) GLUCOSE METER, POINT OF CARE (12/23/2023 4:35 PM EDT) Glucose Meter 185(H) 70 - 120 mg/dL 12/23/2023 4:44 PM EDT [facility] Blood Whole blood specimen / Unknown 12/23/2023 4:35 PM EDT 12/23/2023 4:44 PM EDT Misael Serrato Miquel LAB POINT OF CARE TE ST DOCKED DEVICE UNSOLICITED RESULTS Performing Organization Address [facility] de Phone Number [facility] [address] [place] [phone] * (ABNORMAL) GLUCOSE METER, POINT OF CARE (12/23/2023 12:10 PM EDT) Glucose Meter 137(H) 70 - 120 mg/dL 12/23/2023 12:26 PM EDT [facility] Blood Whole blood specimen / Unknown 12/23/2023 12:10 PM EDT 12/23/2023 12:26 PM EDT Misael Serrato Miquel LAB POINT OF CARE TE ST DOCKED DEVICE UNSOLICITED RESULTS Performing Organization Address City/[facility] Co de Phone Number [facility] [address] [place] [address] * (ABNORMAL) GLUCOSE METER, POINT OF CARE (12/23/2023 7:12 AM EDT) Glucose Meter 170(H) 70 - 120 mg/dL 12/23/2023 7:40 AM EDT [facility] Blood Whole blood specimen / Unknown 12/23/2023 7:12 AM EDT 12/23/2023 7:40 AM EDT Misael Lafleur DO LAB POINT OF CARE TE ST DOCKED DEVICE UNSOLICITED RESULTS Performing Organization Address [facility] de Phone Number [facility] [address] [place] [address] * PT INR (12/23/2023 5:06 AM EDT) Prothrombin Time 14.6 11.6 - 15.2 seconds 12/23/2023 5:47 AM EDT LABORATORY [facility] INR 1.1 0.8 - 1.2 12/23/2023 5:47 AM EDT LABORATORY [facility] Blood Venous blood specimen / Unknown Venipuncture / Unknown 12/23/2023 5:06 AM EDT 12/23/2023 5:25 AM EDT Narrative LABORATORY [facility] - 12/23/2023 5:47 AM EDT Warfarin Therapy INR: 2.0-3.0 conventional anticoagulation INR: 2.5-3.5 high intensity anticoagulation Liyah Saavedra MD LAB BLOOD OR DERABLES Performing Organization Address [facility] Co de Phone Number LABORATORY [facility] [address] [place] [address] * (ABNORMAL) DIFFERENTIAL, AUTOMATED (12/23/2023 5:05 AM EDT) WBC 7.38 4.00 - 10.80 K/uL 12/23/2023 5:44 AM EDT LABORATORY [facility] Neutrophils % 62.6 40.0 - 75.0 % 12/23/2023 5:44 AM EDT LABORATORY [facility] Lymphocytes % 21.0 18.0 - 42.0 % 12/23/2023 5:44 AM EDT LABORATORY GL Monocytes % 14.5(H) 1.0 - 11.0 % 12/23/2023 5:44 AM EDT LABORATORY GL Eosinophils % 1.6 0.0 - 6.0 % 12/23/2023 5:44 AM EDT LABORATORY GL Basophils % 0.0 0.0 - 2.0 % 12/23/2023 5:44 AM EDT LABORATORY GL Immature Granulocytes % 0.3 0.0 - 2.0 % 12/23/2023 5:44 AM EDT LABORATORY [facility] Absolute Neutrophils 4.62 1.80 - 7.70 K/uL 12/23/2023 5:44 AM EDT LABORATORY [facility] Absolute Lymphocytes 1.55 1.00 - 4.80 K/ul 12/23/2023 5:44 AM EDT LABORATORY [facility] Absolute Monocytes 1.07 0.00 - 1.10 K/uL 12/23/2023 5:44 AM EDT LABORATORY [facility] Absolute Eosinophils 0.12 0.00 - 0.70 K/uL 12/23/2023 5:44 AM EDT LABORATORY [facility] Absolute Basophils 0.00 0.00 - 0.20 K/uL 12/23/2023 5:44 AM EDT LABORATORY GL Absolute Immature Granulocytes 0.02 0.00 - 0.20 K/uL 12/23/2023 5:44 AM EDT LABORATORY [facility] Blood Venous blood specimen / Unknown Venipuncture / Unknown 12/23/2023 5:05 AM EDT 12/23/2023 5:31 AM EDT Misael Lafleur DO LAB BLOOD ORDERABLES LABORATORY [address] [address] * (ABNORMAL) CBC (12/23/2023 5:05 AM EDT) Pathologist [facility] WBC 7.38 4.00 - 10.80 K/uL 12/23/2023 5:44 AM EDT LABORATORY GL RBC 3.78 3.85 - 5.15 M/uL 12/23/2023 5:44 AM EDT LABORATORY [facility] HGB 9.1(L) 12.0 - 15.3 g/dL 12/23/2023 5:44 AM EDT LABORATORY GL HCT 29.4(L) 36.0 - 45.2 % 12/23/2023 5:44 AM EDT LABORATORY [facility] MCV 77.8 81.5 - 97.5 fL 12/23/2023 5:44 AM EDT LABORATORY GL MCH 24.1 27.0 - 34.0 pg 12/23/2023 5:44 AM EDT LABORATORY [facility] MCHC 31.0 32.0 - 36.0 g/dL 12/23/2023 5:44 AM EDT LABORATORY [facility] RDW 19.8 11.5 - 15.5 % 12/23/2023 5:44 AM EDT LABORATORY [facility] PLT 137(L) 140 - 400 K/uL 12/23/2023 5:44 AM EDT LABORATORY [facility] MPV 11.8 6.6 - 11.1 fL 12/23/2023 5:44 AM EDT LABORATORY [facility] nRBCs 0 <=0 /100 WBCs 12/23/2023 5:44 AM EDT LABORATORY [facility] Blood Venous blood specimen / Unknown Venipuncture / Unknown 12/23/2023 5:05 AM EDT 12/23/2023 5:31 AM EDT Misael Lafleur DO LAB BLOOD ORDERABLES LABORATORY [facility] [address] [place] [address] * (ABNORMAL) BASIC METABOLIC PANEL (12/23/2023 5:05 AM EDT) BUN 30(H) 6 - 20 mg/dL 12/23/2023 6:06 AM EDT LABORATORY GL Creatinine 1.0 0.5 - 1.0 mg/dL 12/23/2023 6:06 AM EDT LABORATORY GL Estimated Glomerular Filtration Rate 55(L) >=60 mL/min 12/23/2023 6:06 AM EDT LABORATORY [facility] Comment:eGFR is calculated b ased on the CKD-EPI 2020 equation Sodium 143 135 - 146 mmol/L 12/23/2023 6:06 AM EDT LABORATORY [facility] Potassium 3.9 3.5 - 5.1 mmol/L 12/23/2023 6:06 AM EDT LABORATORY [facility] Chloride 101 98 - 107 mmol/L 12/23/2023 6:06 AM EDT LABORATORY [facility] CO2 35(H) 22 - 32 mmol/L 12/23/2023 6:06 AM EDT LABORATORY [facility] Anion Gap 7 7 - 15 mmol/L 12/23/2023 6:06 AM EDT LABORATORY [facility] Glucose 195(H) 70 - 120 mg/dL 12/23/2023 6:06 AM EDT LABORATORY [facility] Calcium 8.1(L) 8.4 - 10.2 mg/dL 12/23/2023 6:06 AM EDT LABORATORY [facility] Blood Venous blood specimen / Unknown Venipuncture / Unknown 12/23/2023 5:05 AM EDT 12/23/2023 5:25 AM EDT Misael Lafleur DO LAB BLOOD ORDERABLES Performing Organization Address City/[facility]/ZIP Co de Phone Number LABORATORY [address] [address] * (ABNORMAL) GLUCOSE METER, POINT OF CARE (12/22/2023 9:43 PM EDT) [facility] Glucose Meter 206(H) 70 - 120 mg/dL 12/22/2023 9:46 PM EDT [facility] Blood Whole blood specimen / Unknown 12/22/2023 9:43 PM EDT 12/22/2023 9:46 PM EDT Misael Lafleur DO LAB POINT OF CARE TE ST DOCKED DEVICE UNSOLICITED RESULTS [facility] [address] [place] [address] * (ABNORMAL) GLUCOSE METER, POINT OF CARE (12/22/2023 4:44 PM EDT) Glucose Meter 185(H) 70 - 120 mg/dL 12/22/2023 4:47 PM EDT [facility] Blood Whole blood specimen / Unknown 12/22/2023 4:44 PM EDT 12/22/2023 4:47 PM EDT Misael Cruzphilroseline LAB POINT OF CARE TE ST DOCKED DEVICE UNSOLICITED RESULTS Performing Organization Address [facility]/ZIP Co de Phone Number [facility] [address] [place] [address] * (ABNORMAL) GLUCOSE METER, POINT OF CARE (12/22/2023 11:42 AM EDT) Glucose Meter 200(H) 70 - 120 mg/dL 12/22/2023 11:47 AM EDT [facility] Blood Whole blood specimen / Unknown 12/22/2023 11:42 AM EDT 12/22/2023 11:47 AM EDT Misael Cruzphilroseline LAB POINT OF CARE TE ST DOCKED DEVICE UNSOLICITED RESULTS Performing Organization Address [facility] de Phone Number [facility] [address] [place] [address] * (ABNORMAL) GLUCOSE METER, POINT OF CARE (12/22/2023 7:35 AM EDT) Glucose Meter 162(H) 70 - 120 mg/dL 12/22/2023 7:37 AM EDT [facility] Blood Whole blood specimen / Unknown 12/22/2023 7:35 AM EDT 12/22/2023 7:37 AM EDT Misael Lafleur DO LAB POINT OF CARE TE ST DOCKED DEVICE UNSOLICITED RESULTS Performing Organization Address [facility] Co de Phone Number [facility] [address] [place] [address] * (ABNORMAL) BASIC METABOLIC PANEL (12/22/2023 4:25 AM EDT) BUN 21(H) 6 - 20 mg/dL 12/22/2023 6:04 AM EDT [facility]ORY [facility] Creatinine 0.8 0.5 - 1.0 mg/dL 12/22/2023 6:04 AM EDT [facility] Estimated Glomerular Filtration Rate 74 >=60 mL/min 12/22/2023 6:04 AM EDT [facility] Comment:eGFR is calculated b ased on the CKD-EPI 2020 equation Sodium 139 135 - 146 mmol/L 12/22/2023 6:04 AM EDT LABORATORY GL Potassium 4.1 3.5 - 5.1 mmol/L 12/22/2023 6:04 AM EDT LABORATORY GL Chloride 96(L) 98 - 107 mmol/L 12/22/2023 6:04 AM EDT LAB[facility]ATORY GL[facility] CO2 34(H) 22 - 32 mmol/L 12/22/2023 6:04 AM EDT LABORATORY GL Anion Gap 9 7 - 15 mmol/L 12/22/2023 6:04 AM EDT LABORATORY GL Glucose 174(H) 70 - 120 mg/dL 12/22/2023 6:04 AM EDT LABORATORY GL Calcium 8.2(L) 8.4 - 10.2 mg/dL 12/22/2023 6:04 AM EDT [facility] Blood Venous blood specimen / Unknown Venipuncture / Unknown 12/22/2023 4:25 AM EDT 12/22/2023 5:24 AM EDT Yg Pickering PA-C LAB BLOOD ORDER [facility] [address] [place] [address] * PT INR (12/22/2023 4:24 AM EDT) Prothrombin Time 15.0 11.6 - 15.2 seconds 12/22/2023 5:41 AM EDT [facility]ORY [facility] INR 1.2 0.8 - 1.2 12/22/2023 5:41 AM EDT [facility] Blood Venous blood specimen / Unknown Venipuncture / Unknown 12/22/2023 4:24 AM EDT 12/22/2023 5:24 AM EDT Narrative LABORATORY [facility] - 12/22/2023 5:41 AM EDT Warfarin Therapy INR: 2.0-3.0 conventional anticoagulation INR: 2.5-3.5 high intensity anticoagulation Liyah Saavedra MD LAB BLOOD OR DERABLES LABORATORY [address] [address] * (ABNORMAL) CBC (12/22/2023 4:24 AM EDT) [facility] WBC 7.08 4.00 - 10.80 K/uL 12/22/2023 5:36 AM EDT LAB[facility]ATORY [facility] RBC 4.25 3.85 - 5.15 M/uL 12/22/2023 5:36 AM EDT [facility] HGB 10.1(L) 12.0 - 15.3 g/dL 12/22/2023 5:36 AM EDT [facility] HCT 33.1(L) 36.0 - 45.2 % 12/22/2023 5:36 AM EDT LAB[facility]ATORY [facility] MCV 77.9 81.5 - 97.5 fL 12/22/2023 5:36 AM EDT LAB[facility]ATORY [facility] MCH 23.8 27.0 - 34.0 pg 12/22/2023 5:36 AM EDT LAB[facility]ORY [facility] MCHC 30.5 32.0 - 36.0 g/dL 12/22/2023 5:36 AM EDT LAB[facility]ATORY [facility] RDW 19.7 11.5 - 15.5 % 12/22/2023 5:36 AM EDT LAB[facility]ATORY [facility] PLT 123(L) 140 - 400 K/uL 12/22/2023 5:36 AM EDT LAB[facility]ATORY [facility] MPV 12/22/2023 5:36 AM EDT [facility] Comment:No result - abnormal platelet distribution. nRBCs 0 <=0 /100 WBCs 12/22/2023 5:36 AM EDT [facility] Blood Venous blood specimen / Unknown Venipuncture / Unknown 12/22/2023 4:24 AM EDT 12/22/2023 5:24 AM EDT Yg Pickering PA-C LAB BLOOD ORDER [facility] Performing Organization Address City/[facility]/ZIP Co de Phone Number LABORATORY [address] [address] * (ABNORMAL) GLUCOSE METER, POINT OF CARE (12/21/2023 9:53 PM EDT) Glucose Meter 219(H) 70 - 120 mg/dL 12/21/2023 9:56 PM EDT [facility] Blood Whole blood specimen / Unknown 12/21/2023 9:53 PM EDT 12/21/2023 9:56 PM EDT Misael Serrato Pagnotto DO LAB POINT OF CARE TE ST DOCKED DEVICE UNSOLICITED RESULTS Performing Organization Address [facility] de Phone Number [facility] [address] [place] [phone] * (ABNORMAL) GLUCOSE METER, POINT OF CARE (12/21/2023 4:37 PM EDT) Glucose Meter 142(H) 70 - 120 mg/dL 12/21/2023 4:41 PM EDT [facility] Blood Whole blood specimen / Unknown 12/21/2023 4:37 PM EDT 12/21/2023 4:41 PM EDT Misael Serrato Pagnotto DO LAB POINT OF CARE TE ST DOCKED DEVICE UNSOLICITED RESULTS Performing Organization Address [facility] Co de Phone Number [facility] [address] [place] [phone] * XR INTRA-OP C-ARM CASE (12/21/2023 2:03 PM EDT) Narrative Scheduling, Silent - 12/21/2023 2:04 PM EDT This procedure will not be read by a Radiologist. Please see operative note. Yg Pickering PA-C RADIOLOGY (RAD GENERAL) * (ABNORMAL) GLUCOSE METER, POINT OF CARE (12/21/2023 1:57 PM EDT) Glucose Meter 133(H) 70 - 120 mg/dL 12/21/2023 2:21 PM EDT [facility] Blood Whole blood specimen / Unknown 12/21/2023 1:57 PM EDT 12/21/2023 2:21 PM EDT Misael Serrato Miquel COOPER LAB POINT OF CARE TE ST DOCKED DEVICE UNSOLICITED RESULTS Performing Organization Address City/[facility]/ZIP Co de Phone Number [facility] [address] [place] [address] * GLUCOSE METER, POINT OF CARE (12/21/2023 10:51 AM EDT) Glucose Meter 118 70 - 120 mg/dL 12/21/2023 10:54 AM EDT [facility] Blood Whole blood specimen / Unknown 12/21/2023 10:51 AM EDT 12/21/2023 10:54 AM EDT Misael Serrato Miquel LAB POINT OF CARE TE ST DOCKED DEVICE UNSOLICITED RESULTS Performing Organization Address [facility]/ZIP Co de Phone Number [facility] [address] [place] [address] * (ABNORMAL) GLUCOSE METER, POINT OF CARE (12/21/2023 7:21 AM EDT) Glucose Meter 121(H) 70 - 120 mg/dL 12/21/2023 7:29 AM EDT [facility] Blood Whole blood specimen / Unknown 12/21/2023 7:21 AM EDT 12/21/2023 7:29 AM EDT Misael Serraot Miquel LAB POINT OF CARE TE ST DOCKED DEVICE UNSOLICITED RESULTS Performing Organization Address City/[facility]/ZIP Co de Phone Number [facility] [address] [place] [address] * (ABNORMAL) BASIC METABOLIC PANEL (12/21/2023 4:24 AM EDT) BUN 16 6 - 20 mg/dL 12/21/2023 4:46 AM EDT LABORATORY GL Creatinine 0.7 0.5 - 1.0 mg/dL 12/21/2023 4:46 AM EDT [facility]ORY [facility] Estimated Glomerular Filtration Rate 83 >=60 mL/min 12/21/2023 4:46 AM EDT [facility] Comment:eGFR is calculated b ased on the CKD-EPI 2020 equation Sodium 140 135 - 146 mmol/L 12/21/2023 4:46 AM EDT [facility] Potassium 4.1 3.5 - 5.1 mmol/L 12/21/2023 4:46 AM EDT [facility] Chloride 99 98 - 107 mmol/L 12/21/2023 4:46 AM EDT [facility]ORY [facility] CO2 37(H) 22 - 32 mmol/L 12/21/2023 4:46 AM EDT [facility] Anion Gap 4(L) 7 - 15 mmol/L 12/21/2023 4:46 AM EDT LAB[facility]ORY [facility] Glucose 142(H) 70 - 120 mg/dL 12/21/2023 4:46 AM EDT [facility]ORY [facility] Calcium 8.8 8.4 - 10.2 mg/dL 12/21/2023 4:46 AM EDT LABORATORY GL Blood Venous blood specimen / Unknown Venipuncture / Unknown 12/21/2023 4:24 AM EDT 12/21/2023 4:27 AM EDT Farzana Manzo MD LAB BLOOD ORDERABL ES LABORATORY [facility] [address] [place] [address] * (ABNORMAL) CBC (12/21/2023 4:24 AM EDT) WBC 6.41 4.00 - 10.80 K/uL 12/21/2023 4:40 AM EDT LAB[facility]ATORY [facility] RBC 4.70 3.85 - 5.15 M/uL 12/21/2023 4:40 AM EDT LAB[facility]ORY [facility] HGB 11.1(L) 12.0 - 15.3 g/dL 12/21/2023 4:40 AM EDT LAB[facility]ORY [facility] HCT 36.4 36.0 - 45.2 % 12/21/2023 4:40 AM EDT LAB[facility]ORY [facility] MCV 77.4 81.5 - 97.5 fL 12/21/2023 4:40 AM EDT LAB[facility]ATORY [facility] MCH 23.6 27.0 - 34.0 pg 12/21/2023 4:40 AM EDT LAB[facility]ORY [facility] MCHC 30.5 32.0 - 36.0 g/dL 12/21/2023 4:40 AM EDT LABORATORY [facility] RDW 19.7 11.5 - 15.5 % 12/21/2023 4:40 AM EDT LABORATORY [facility] PLT 123(L) 140 - 400 K/uL 12/21/2023 4:40 AM EDT LAB[facility]ATORY [facility] MPV 10.6 6.6 - 11.1 fL 12/21/2023 4:40 AM EDT LAB[facility]ORY [facility] nRBCs 0 <=0 /100 WBCs 12/21/2023 4:40 AM EDT [facility]ORY [facility] Blood Venous blood specimen / Unknown Venipuncture / Unknown 12/21/2023 4:24 AM EDT 12/21/2023 4:27 AM EDT Farzana Manzo MD LAB BLOOD ORDERABL ES LAB[facility]ATORY [facility] [address] [place] [address] * (ABNORMAL) PT INR (12/21/2023 4:24 AM EDT) [facility] Prothrombin Time 15.7(H) 11.6 - 15.2 seconds 12/21/2023 4:43 AM EDT LAB[facility]ATORY [facility] INR 1.2 0.8 - 1.2 12/21/2023 4:43 AM EDT [facility]ORY [facility] Blood Venous blood specimen / Unknown Venipuncture / Unknown 12/21/2023 4:24 AM EDT 12/21/2023 4:27 AM EDT Narrative LABORATORY GL - 12/21/2023 4:43 AM EDT Warfarin Therapy INR: 2.0-3.0 conventional anticoagulation INR: 2.5-3.5 high intensity anticoagulation Liyah Saavedra MD LAB BLOOD OR DERABLES Performing Organization Address [facility] Co de Phone Number LABORATORY [address] [phone] * APTT (12/21/2023 4:24 AM EDT) aPTT 38 21 - 38 seconds 12/21/2023 4:44 AM EDT [facility]ORY [facility] Blood Venous blood specimen / Unknown Venipuncture / Unknown 12/21/2023 4:24 AM EDT 12/21/2023 4:27 AM EDT Narrative LAB[facility]ATORY [facility] - 12/21/2023 4:44 AM EDT Anticoagulation may affect testing. Refer to [employer] Test Catalog for a list of effects. Misael Lafleur DO LAB BLOOD ORDERABLES Performing Organization Address [facility] Co de Phone Number LABORATORY [address] [phone] * GLUCOSE METER, POINT OF CARE (12/20/2023 9:24 PM EDT) Glucose Meter 119 70 - 120 mg/dL 12/20/2023 9:27 PM EDT [facility] Blood Whole blood specimen / Unknown 12/20/2023 9:24 PM EDT 12/20/2023 9:27 PM EDT Misael Lafleur DO LAB POINT OF CARE TE ST DOCKED DEVICE UNSOLICITED RESULTS Performing Organization Address [facility] de Phone Number [facility] [address] [place] [phone] * (ABNORMAL) APTT (12/20/2023 9:15 PM EDT) aPTT 79(H) 21 - 38 seconds 12/20/2023 9:58 PM EDT [facility]ORY [facility] Blood Venous blood specimen / Unknown Venipuncture / Unknown 12/20/2023 9:15 PM EDT 12/20/2023 9:19 PM EDT Narrative LABORATORY [facility] - 12/20/2023 9:58 PM EDT Anticoagulation may affect testing. Refer to [employer] [facility] Test Catalog for a list of effects. Christian Ortiz MD LAB BLOOD ORD ERABLES Performing Organization Address City/[facility]/ZIP Co de Phone Number LABORATORY [address] [phone] * GLUCOSE METER, POINT OF CARE (12/20/2023 4:28 PM EDT) [facility] Signature Glucose Meter 105 70 - 120 mg/dL 12/20/2023 4:35 PM EDT [facility] Blood Whole blood specimen / Unknown 12/20/2023 4:28 PM EDT 12/20/2023 4:35 PM EDT Christian Ortiz MD LAB POINT OF CARE TEST DOCKED DEVICE UNSOLICITED RESULTS Performing Organization Address [facility] Co de Phone Number [facility] [address] [place] [phone] * (ABNORMAL) CBC (12/20/2023 3:07 PM EDT) WBC 6.37 4.00 - 10.80 K/uL 12/20/2023 3:56 PM EDT LAB[facility]ATORY [facility] RBC 4.98 3.85 - 5.15 M/uL 12/20/2023 3:56 PM EDT LAB[facility]ORY [facility] HGB 11.6(L) 12.0 - 15.3 g/dL 12/20/2023 3:56 PM EDT LAB[facility] HCT 39.1 36.0 - 45.2 % 12/20/2023 3:56 PM EDT LAB[facility]ORY [facility] MCV 78.5 81.5 - 97.5 fL 12/20/2023 3:56 PM EDT LAB[facility]ORY [facility] MCH 23.3 27.0 - 34.0 pg 12/20/2023 3:56 PM EDT LAB[facility]ORY [facility] MCHC 29.7 32.0 - 36.0 g/dL 12/20/2023 3:56 PM EDT [facility] RDW 20.1 11.5 - 15.5 % 12/20/2023 3:56 PM EDT LABOR[facility]ORY [facility] PLT 126(L) 140 - 400 K/uL 12/20/2023 3:56 PM EDT LAB[facility]ORY [facility] MPV 10.9 6.6 - 11.1 fL 12/20/2023 3:56 PM EDT LAB[facility]ORY [facility] nRBCs 0 <=0 /100 WBCs 12/20/2023 3:56 PM EDT [facility] Blood Venous blood specimen / Unknown Venipuncture / Unknown 12/20/2023 3:07 PM EDT 12/20/2023 3:21 PM EDT Christian Ortiz MD LAB BLOOD ORD ERABLES LABORATORY [address] [phone] * APTT (12/20/2023 3:07 PM EDT) aPTT 35 21 - 38 seconds 12/20/2023 3:41 PM EDT [facility]ORY [facility] Blood Venous blood specimen / Unknown Venipuncture / Unknown 12/20/2023 3:07 PM EDT 12/20/2023 3:21 PM EDT Narrative LABORATORY [facility] - 12/20/2023 3:41 PM EDT Anticoagulation may affect testing. Refer to [employer] Test Catalog for a list of effects. Christian Ortiz MD LAB BLOOD ORD ERABLES LABORATORY [address] [address] * GLUCOSE METER, POINT OF CARE (12/20/2023 11:40 AM EDT) Glucose Meter 108 70 - 120 mg/dL 12/20/2023 11:46 AM EDT [facility] Blood Whole blood specimen / Unknown 12/20/2023 11:40 AM EDT 12/20/2023 11:46 AM EDT Christian Ortiz MD LAB POINT OF CARE TEST DOCKED DEVICE UNSOLICITED RESULTS Performing Organization Address [facility] de Phone Number [facility] [address] [place] [phone] * (ABNORMAL) GLUCOSE METER, POINT OF CARE (12/20/2023 7:18 AM EDT) Glucose Meter 138(H) 70 - 120 mg/dL 12/20/2023 7:27 AM EDT [facility] Blood Whole blood specimen / Unknown 12/20/2023 7:18 AM EDT 12/20/2023 7:27 AM EDT Christian Ortiz MD LAB POINT OF CARE TEST DOCKED DEVICE UNSOLICITED RESULTS Performing Organization Address [facility] Phone Number [facility] [address] [place] [phone] * (ABNORMAL) PT INR (12/20/2023 4:25 AM EDT) Prothrombin Time 16.0(H) 11.6 - 15.2 seconds 12/20/2023 5:31 AM EDT LAB[facility]ORY [facility] INR 1.3(H) 0.8 - 1.2 12/20/2023 5:31 AM EDT [facility] Blood Venous blood specimen / Unknown Venipuncture / Unknown 12/20/2023 4:25 AM EDT 12/20/2023 5:12 AM EDT Narrative LABORATORY [facility] - 12/20/2023 5:31 AM EDT Warfarin Therapy INR: 2.0-3.0 conventional anticoagulation INR: 2.5-3.5 high intensity anticoagulation Liyah Saavedra MD LAB BLOOD OR DERABLES Performing Organization Address [facility] Co de Phone Number LABORATORY [address] [phone] * PHOSPHORUS (12/20/2023 4:25 AM EDT) Pathologist [facility] Phosphorus 4.1 2.5 - 4.8 mg/dL 12/20/2023 5:39 AM EDT [facility]ORY [facility] Blood Venous blood specimen / Unknown Venipuncture / Unknown 12/20/2023 4:25 AM EDT 12/20/2023 5:12 AM EDT Liyah Saavedra MD LAB BLOOD OR DERABLES Performing Organization Address [facility] Co de Phone Number LABORATORY [address] [address] * MAGNESIUM (12/20/2023 4:25 AM EDT) Pathologist [facility] Magnesium 2.4 1.5 - 2.6 mg/dL 12/20/2023 5:39 AM EDT [facility]ORY [facility] Blood Venous blood specimen / Unknown Venipuncture / Unknown 12/20/2023 4:25 AM EDT 12/20/2023 5:12 AM EDT Liyah Saavedra MD LAB BLOOD OR DERABLES Performing Organization Address [facility] de Phone Number LABORATORY [address] [phone] * CBC (12/20/2023 4:25 AM EDT) Pathologist [facility] WBC 7.97 4.00 - 10.80 K/uL 12/20/2023 5:27 AM EDT LAB[facility]ORY [facility] RBC 5.07 3.85 - 5.15 M/uL 12/20/2023 5:27 AM EDT LAB[facility]ORY [facility] HGB 12.0 12.0 - 15.3 g/dL 12/20/2023 5:27 AM EDT LAB[facility]ORY [facility] HCT 39.5 36.0 - 45.2 % 12/20/2023 5:27 AM EDT LAB[facility]ORY [facility] MCV 77.9 81.5 - 97.5 fL 12/20/2023 5:27 AM EDT LAB[facility]ORY [facility] MCH 23.7 27.0 - 34.0 pg 12/20/2023 5:27 AM EDT LABORATORY GL MCHC 30.4 32.0 - 36.0 g/dL 12/20/2023 5:27 AM EDT LABORATORY GL RDW 20.5 11.5 - 15.5 % 12/20/2023 5:27 AM EDT LABORATORY GL PLT 140 140 - 400 K/uL 12/20/2023 5:27 AM EDT LABORATORY GL MPV 10.9 6.6 - 11.1 fL 12/20/2023 5:27 AM EDT LABORATORY GL nRBCs 0 <=0 /100 WBCs 12/20/2023 5:27 AM EDT LABORATORY GL Blood Venous blood specimen / Unknown Venipuncture / Unknown 12/20/2023 4:25 AM EDT 12/20/2023 5:12 AM EDT Liyah Saavedra MD LAB BLOOD OR DERABLES Performing Organization Address City/State/[facility] Co de Phone Number LABORATORY GL [address] [place] [address] * (ABNORMAL) COMPREHENSIVE METABOLIC PANEL (12/20/2023 4:25 AM EDT) BUN 22(H) 6 - 20 mg/dL 12/20/2023 5:39 AM EDT LABORATORY GL Creatinine 0.9 0.5 - 1.0 mg/dL 12/20/2023 5:39 AM EDT LAB[facility]ORY [facility] Estimated Glomerular Filtration Rate 60 >=60 mL/min 12/20/2023 5:39 AM EDT [facility] Comment:eGFR is calculated b ased on the CKD-EPI 2020 equation Sodium 144 135 - 146 mmol/L 12/20/2023 5:39 AM EDT LAB[facility]ORY [facility] Potassium 4.1 3.5 - 5.1 mmol/L 12/20/2023 5:39 AM EDT [facility] Chloride 101 98 - 107 mmol/L 12/20/2023 5:39 AM EDT [facility] CO2 34(H) 22 - 32 mmol/L 12/20/2023 5:39 AM EDT [facility]ORY [facility] Anion Gap 9 7 - 15 mmol/L 12/20/2023 5:39 AM EDT [facility] Glucose 135(H) 70 - 120 mg/dL 12/20/2023 5:39 AM EDT [facility] Albumin 3.9 3.8 - 5.0 g/dL 12/20/2023 5:39 AM EDT LAB[facility]ORY [facility] AST 35 10 - 35 U/L 12/20/2023 5:39 AM EDT LAB[facility] Alkaline Phosphatase 81 35 - 130 U/L 12/20/2023 5:39 AM EDT [facility] Bilirubin, Total 1.3(H) <=1.2 mg/dL 12/20/2023 5:39 AM EDT [facility] Calcium 9.4 8.4 - 10.2 mg/dL 12/20/2023 5:39 AM EDT [facility] Protein 6.1 6.0 - 8.3 g/dL 12/20/2023 5:39 AM EDT [facility]ORY [facility] ALT 18 10 - 35 U/L 12/20/2023 5:39 AM EDT [facility] Blood Venous blood specimen / Unknown Venipuncture / Unknown 12/20/2023 4:25 AM EDT 12/20/2023 5:12 AM EDT Liyah Saavedra MD LAB BLOOD OR DERABLES LABORATORY [address] [address] * GLUCOSE METER, POINT OF CARE (12/19/2023 9:26 PM EDT) [facility] Signature Glucose Meter 117 70 - 120 mg/dL 12/19/2023 9:29 PM EDT [facility] Blood Whole blood specimen / Unknown 12/19/2023 9:26 PM EDT 12/19/2023 9:29 PM EDT Liyah Saavedra MD LAB POINT OF CARE TEST DOCKED DEVICE UNSOLICITED RESULTS Performing Organization Address City/[facility] Co de Phone Number [facility] [address] [place] [phone] * (ABNORMAL) APTT (12/19/2023 9:20 PM EDT) aPTT 59(H) 21 - 38 seconds 12/19/2023 9:45 PM EDT [facility] Blood Venous blood specimen / Unknown Venipuncture / Unknown 12/19/2023 9:20 PM EDT 12/19/2023 9:23 PM EDT Narrative LABORATORY [facility] - 12/19/2023 9:45 PM EDT Anticoagulation may affect testing. Refer to [employer] Test Catalog for a list of effects. Liyah Saavedra MD LAB BLOOD OR DERABLES LABORATORY [address] [place] [address] * (ABNORMAL) GLUCOSE METER, POINT OF CARE (12/19/2023 4:59 PM EDT) Glucose Meter 160(H) 70 - 120 mg/dL 12/19/2023 9:28 PM EDT [facility] Blood Whole blood specimen / Unknown 12/19/2023 4:59 PM EDT 12/19/2023 9:28 PM EDT Liyah Saavedra MD LAB POINT OF CARE TEST DOCKED DEVICE UNSOLICITED RESULTS Performing Organization Address City/[facility]/ZIP Co de Phone Number [facility] [address] [place] [phone] * (ABNORMAL) HEPARIN, UNFRACTIONATED (12/19/2023 2:32 PM EDT) Heparin, Unfractionated >1.10(HH) <0.10 IU/mL 12/19/2023 3:46 PM EDT [facility] Comment: Unfractionated therapeutic ranges for Anti Xa activity: For Cardiac/Neurologic treatment: 0.3 to 0.6 IU/mL. For treatment of DVT or Pulmonary Embolism: 0.3 to 0.7 IU/mL. Blood Venous blood specimen / Unknown Venipuncture / Unknown 12/19/2023 2:32 PM EDT 12/19/2023 2:34 PM EDT Narrative LABORATORY GL - 12/19/2023 3:46 PM EDT Results rechecked. Liyah Saavedra MD LAB BLOOD OR DERABLES [facility] [address] [place] [address] * (ABNORMAL) CBC (12/19/2023 2:32 PM EDT) [facility] WBC 9.61 4.00 - 10.80 K/uL 12/19/2023 2:37 PM EDT LAB[facility]ATORY [facility] RBC 5.02 3.85 - 5.15 M/uL 12/19/2023 2:37 PM EDT [facility] HGB 11.7(L) 12.0 - 15.3 g/dL 12/19/2023 2:37 PM EDT [facility] HCT 38.1 36.0 - 45.2 % 12/19/2023 2:37 PM EDT [facility] MCV 75.9 81.5 - 97.5 fL 12/19/2023 2:37 PM EDT [facility] MCH 23.3 27.0 - 34.0 pg 12/19/2023 2:37 PM EDT LAB[facility] MCHC 30.7 32.0 - 36.0 g/dL 12/19/2023 2:37 PM EDT LAB[facility] RDW 20.1 11.5 - 15.5 % 12/19/2023 2:37 PM EDT LAB[facility]ORY [facility] PLT 153 140 - 400 K/uL 12/19/2023 2:37 PM EDT LAB[facility]ORY [facility] MPV 10.8 6.6 - 11.1 fL 12/19/2023 2:37 PM EDT [facility] nRBCs 0 <=0 /100 WBCs 12/19/2023 2:37 PM EDT [facility] Blood Venous blood specimen / Unknown Venipuncture / Unknown 12/19/2023 2:32 PM EDT 12/19/2023 2:34 PM EDT Liyah Saavedra MD LAB BLOOD OR DERABLES Performing Organization Address City/[facility]/ZIP Co de Phone Number LABORATORY [address] [address] * APTT (12/19/2023 2:32 PM EDT) aPTT 32 21 - 38 seconds 12/19/2023 2:51 PM EDT [facility] Blood Venous blood specimen / Unknown Venipuncture / Unknown 12/19/2023 2:32 PM EDT 12/19/2023 2:34 PM EDT Narrative LAB[facility]ATORY [facility] - 12/19/2023 2:51 PM EDT Anticoagulation may affect testing. Refer to [employer] Test Catalog for a list of effects. Liyah Saavedra MD LAB BLOOD OR DERABLES Performing Organization Address [facility] Co de Phone Number LABORATORY [address] [address] * (ABNORMAL) PT INR (12/19/2023 2:32 PM EDT) Prothrombin Time 16.1(H) 11.6 - 15.2 seconds 12/19/2023 2:50 PM EDT [facility]ORY [facility] INR 1.3(H) 0.8 - 1.2 12/19/2023 2:50 PM EDT [facility] Blood Venous blood specimen / Unknown Venipuncture / Unknown 12/19/2023 2:32 PM EDT 12/19/2023 2:34 PM EDT Narrative LAB[facility]ATORY [facility] - 12/19/2023 2:50 PM EDT Warfarin Therapy INR: 2.0-3.0 conventional anticoagulation INR: 2.5-3.5 high intensity anticoagulation Liyah Saavedra MD LAB BLOOD OR DERABLES Performing Organization Address City/[facility]/ZIP Co de Phone Number LABORATORY [address] [address] * INFLUENZA A/B RSV SARS-COV2,PCR (12/19/2023 11:38 AM EDT) SARS-CoV-2 (COVID-19) Result Negative Negative 12/19/2023 1:34 PM EDT LABORATORY [facility] Comment: No SARS-CoV2 Coronavirus RNA detected by PCR (amplified probe). This express test was developed and its performance characteristics determined by [employer]. It has not been cleared or approved by the U.S. Food and Drug Administration (FDA). FDA does not require this test to go thru premarket FDA review. This test is used for clinical purposes. It should not be regarded as investigational or for research. This laboratory is certified under the Clinical Laboratory Improvement Amendments (CLIA) as qualified to perform high complexity clinical laboratory testing. This test is a nucleic acid amplification test (NAAT), a reverse transcriptase polymerase chain reaction (RT-PCR) test, or a Centers for Disease Control- acceptable equivalent. The test is performed in a high complexity Clinical Laboratory Improvement Amendments-(CLIA) certified laboratory. The test is acceptable for SARS-CoV-2 diagnosis, surveillance, and travel within the [facility] and to most countries. Please check with local testing authorities about requirements before travel. The validation of bronchial specimens, tracheal aspirates, and sputum for this assay was developed and performance characteristics determined by [employer]. The validation of alternate specimen types has not been cleared or approved by the U.S. Food and Drug Administration (FDA). It has been determined that such clearance is not necessary. Influenza A PCR Result Negative Negative 12/19/2023 1:34 PM EDT LABORATORY [facility] Comment:No Influenza A RNA d etected by PCR (amplified probe) Influenza B PCR Result Negative Negative 12/19/2023 1:34 PM EDT LABORATORY [facility] Comment:No Influenza B RNA d etected by PCR (amplified probe) RSV PCR Result Negative Negative 12/19/2023 1:34 PM EDT LABORATORY [facility] Comment:No Respiratory Syncy tial Virus RNA detected by PCR (amplified probe) Upper Respiratory Mid-turbinate nasal swab / Unknown Non-blood Collection / Unknown 12/19/2023 11:38 AM EDT 12/19/2023 11:41 AM EDT Pepe Chaudhari MD LAB MICRO - GENERAL ORDERABLES Performing Organization Address City/[facility]/ZIP Co de Phone Number LABORATORY [facility] [address] [place] [address] * (ABNORMAL) URINALYSIS, REFLEX TO MICROSCOPIC (12/19/2023 11:06 AM EDT) Color, Urine Yellow Light Yellow, Yellow, Dark Yellow 12/19/2023 11:25 AM EDT LABORATORY [facility] Clarity, Urine Clear Clear 12/19/2023 11:25 AM EDT LABORATORY GL Glucose, Urine 500(A) Negative mg/dL 12/19/2023 11:25 AM EDT LABORATORY GL Bilirubin, Urine Negative Negative 12/19/2023 11:25 AM EDT LABORATORY GL Ketone, Urine Negative Negative mg/dL 12/19/2023 11:25 AM EDT LABORATORY [facility] Specific [place], Urine 1.018 1.003 - 1.030 12/19/2023 11:25 AM EDT LABORATORY GL Blood, Urine Negative Negative 12/19/2023 11:25 AM EDT LABORATORY GL pH, Urine 6.0 5.0 - 7.5 Units 12/19/2023 11:25 AM EDT LABORATORY [facility] Protein, Urine Negative Negative mg/dL 12/19/2023 11:25 AM EDT LABORATORY GL Urobilinogen, Urine 0.2 0.2, 1.0 mg/dL 12/19/2023 11:25 AM EDT LABORATORY [facility] Nitrite, Urine Negative Negative 12/19/2023 11:25 AM EDT LABORATORY [facility] Esterase, Urine Negative Negative 11:25 AM EDT LABORATORY [facility] Comment, Urine 12/19/2023 11:25 AM EDT LABORATORY GL Comment:Screen negative - Mi croscopic not performed. Urine Non-blood Collection / Unknown 12/19/2023 11:06 AM EDT 12/19/2023 11:12 AM EDT Pepe Chaudhari MD LAB URINE ORDERABLES Performing Organization Address [facility]/ZIP Co de Phone Number LABORATORY [facility] [address] [place] [address] * TOXICOLOGY, URINESCREEN W/ CONFIRMATION (12/19/2023 11:06 AM EDT) [facility] Amphetamines Screen, U Negative Negative 12/19/2023 11:37 AM EDT LABORATORY [facility] Benzodiazepines Screen, U Negative Negative 12/19/2023 11:37 AM EDT LABORATORY [facility] Cannabinoids Screen, U Negative Negative 12/19/2023 11:37 AM EDT LABORATORY [facility] Cocaine Metabolite Screen, U Negative Negative 12/19/2023 11:37 AM EDT LABORATORY [facility] Fentanyl Screen, U Negative Negative 2023 11:37 AM EDT LABORATORY [facility] Hydrocodone Screen, U Negative Negative 12/19/2023 11:37 AM EDT LABORATORY [facility] Methadone Metabolite Screen, U Negative Negative 12/19/2023 11:37 AM EDT LABORATORY [facility] Morphine/Codeine Screen, U Negative Negative 12/19/2023 11:37 AM EDT LABORATORY [facility] Oxycodone Screen, U Negative Negative 12/18 11:37 AM EDT LABORATORY [facility] Urine Non-blood Collection / Unknown 12/19/2023 11:06 AM EDT 12/19/2023 11:12 AM EDT Narrative LABORATORY [facility] - 12/19/2023 11:37 AM EDT Cutoff Concentrations: Drug Level Amphetamines 500 ng/mL Benzodiazepines 100 ng/mL Cannabinoids 50 ng/mL Cocaine Metabolite 150 ng/mL Fentanyl 1 ng/mL Hydrocodone / Hydromorphone 300 ng/mL Methadone Metabolite 100 ng/mL Morphine / Codeine 300 ng/mL Oxycodone / Oxymorphone 100 ng/mL Screening results are presumptive and can only be used for medical purposes. Positive screening results are reflexed to confirmatory testing. Pepe Chaudhari MD LAB URINE ORDERABLES LABORATORY [address] [address] * (ABNORMAL) DIFFERENTIAL, TECHNOLOGIST REVIEW (12/19/2023 10:36 AM EDT) [facility] Ovalocytes Moderate(A ) None Seen 12/19/2023 12:09 PM EDT LABORATORY [facility] Blood Venous blood specimen / Unknown Venipuncture / Unknown 12/19/2023 10:36 AM EDT 12/19/2023 10:47 AM EDT Pepe Chaudhari MD LAB BLOOD ORDERABLES Performing Organization Address [facility]/ZIP Co de Phone Number LABORATORY [address] [address] * EXTRA GREEN TOP WITH GEL (12/19/2023 10:36 AM EDT) Blood Venous blood specimen / Unknown Venipuncture / Unknown 12/19/2023 10:36 AM EDT 12/19/2023 10:49 AM EDT Pepe Chaudhari MD LAB BLOOD ORDERABLES Performing Organization Address [facility] Co de Phone Number LABORATORY [address] [phone] * DIFFERENTIAL, AUTOMATED (12/19/2023 10:36 AM EDT) WBC 8.14 4.00 - 10.80 K/uL 12/19/2023 12:09 PM EDT LABORATORY [facility] Neutrophils % 57.1 40.0 - 75.0 % 12/19/2023 12:09 PM EDT LABORATORY [facility] Lymphocytes % 29.1 18.0 - 42.0 % 12/19/2023 12:09 PM EDT LABORATORY [facility] Monocytes % 10.7 1.0 - 11.0 % 12/19/2023 12:09 PM EDT LABORATORY [facility] Eosinophils % 2.8 0.0 - 6.0 % 12/19/2023 12:09 PM EDT LABORATORY GL Basophils % 0.1 0.0 - 2.0 % 12/19/2023 12:09 PM EDT LABORATORY [facility] Immature Granulocytes % 0.2 0.0 - 2.0 % 12/19/2023 12:09 PM EDT LABORATORY [facility] Absolute Neutrophils 4.64 1.80 - 7.70 K/uL 12/19/2023 12:09 PM EDT LABORATORY GL Absolute Lymphocytes 2.37 1.00 - 4.80 K/ul 12/19/2023 12:09 PM EDT LABORATORY GL Absolute Monocytes 0.87 0.00 - 1.10 K/uL 12/19/2023 12:09 PM EDT LABORATORY GL Absolute Eosinophils 0.23 0.00 - 0.70 K/uL 12/19/2023 12:09 PM EDT LABORATORY GL Absolute Basophils 0.01 0.00 - 0.20 K/uL 12/19/2023 12:09 PM EDT LABORATORY GL Absolute Immature Granulocytes 0.02 0.00 - 0.20 K/uL 12/19/2023 12:09 PM EDT LABORATORY [facility] Blood Venous blood specimen / Unknown Venipuncture / Unknown 12/19/2023 10:36 AM EDT 12/19/2023 10:47 AM EDT Pepe Chaudhari MD LAB BLOOD ORDERABLES LABORATORY [address] [address] * CBC (12/19/2023 10:36 AM EDT) WBC 8.14 4.00 - 10.80 K/uL 12/19/2023 10:57 AM EDT LABORATORY [facility] RBC 5.35 3.85 - 5.15 M/uL 12/19/2023 10:57 AM EDT LABORATORY [facility] HGB 12.4 12.0 - 15.3 g/dL 12/19/2023 10:57 AM EDT LABORATORY [facility] HCT 40.5 36.0 - 45.2 % 12/19/2023 10:57 AM EDT LABORATORY GL MCV 75.7 81.5 - 97.5 fL 12/19/2023 10:57 AM EDT LABORATORY GL MCH 23.2 27.0 - 34.0 pg 12/19/2023 10:57 AM EDT LABORATORY [facility] MCHC 30.6 32.0 - 36.0 g/dL 12/19/2023 10:57 AM EDT LABORATORY [facility] RDW 20.5 11.5 - 15.5 % 12/19/2023 10:57 AM EDT LABORATORY [facility] PLT 178 140 - 400 K/uL 12/19/2023 10:57 AM EDT LABORATORY [facility] MPV 11.4 6.6 - 11.1 fL 12/19/2023 10:57 AM EDT LABORATORY [facility] nRBCs 0 <=0 /100 WBCs 12/19/2023 10:57 AM EDT LABORATORY [facility] Blood Venous blood specimen / Unknown Venipuncture / Unknown 12/19/2023 10:36 AM EDT 12/19/2023 10:47 AM EDT Pepe Chaudhari MD LAB BLOOD ORDERABLES LABORATORY [address] [id number] * CK (12/19/2023 10:36 AM EDT) CK 33 26 - 192 U/L 12/19/2023 11:14 AM EDT LABORATORY [facility] Blood Venous blood specimen / Unknown Venipuncture / Unknown 12/19/2023 10:36 AM EDT 12/19/2023 10:47 AM EDT Pepe Chaudhari MD LAB BLOOD ORDERABLES LABORATORY [address] [address] * TYPE AND SCREEN (12/19/2023 10:36 AM EDT) ABO A 12/19/2023 11:32 AM EDT LABORATORY [facility] BLOOD BANK Rh Negative 12/19/2023 11:32 AM EDT LABORATORY [facility] BLOOD BANK Red Blood Cell Antibody Screen Negative 12/19/2023 11:32 AM EDT LABORATORY [facility] BLOOD BANK Specimen Expiration Date 12/22/2023 23:59 12/19/2023 11:32 AM EDT LABORATORY [facility] BLOOD BANK Blood Venous blood specimen / Unknown Venipuncture / Unknown 12/19/2023 10:36 AM EDT 12/19/2023 10:47 AM EDT Pepe Chaudhari MD LAB BLOOD BANK TEST ORDERABLES LABORATORY [facility] BLOOD BANK [address] [place] [id number] * (ABNORMAL) PT INR (12/19/2023 10:36 AM EDT) Prothrombin Time 15.5(H) 11.6 - 15.2 seconds 12/19/2023 11:11 AM EDT LABORATORY [facility] INR 1.2 0.8 - 1.2 12/19/2023 11:11 AM EDT LABORATORY [facility] Blood Venous blood specimen / Unknown Venipuncture / Unknown 12/19/2023 10:36 AM EDT 12/19/2023 10:47 AM EDT Narrative LABORATORY [facility] - 12/19/2023 11:11 AM EDT Warfarin Therapy INR: 2.0-3.0 conventional anticoagulation INR: 2.5-3.5 high intensity anticoagulation Pepe Chaudhari MD LAB BLOOD ORDERABLES Performing Organization Address City/[facility]/ZIP Co de Phone Number LABORATORY [address] [address] * (ABNORMAL) LACTATE,WHOLE BLOOD (12/19/2023 10:36 AM EDT) Pathologist [facility] Lactate, Whole Blood 2.1(H) 0.4 - 2.0 mmol/L 12/19/2023 10:47 AM EDT LABORATORY [facility] Blood Venous blood specimen / Unknown Venipuncture / Unknown 12/19/2023 10:36 AM EDT 12/19/2023 10:43 AM EDT Pepe Chaudhari MD LAB BLOOD ORDERABLES LABORATORY [address] [id number] * ETHANOL, MEDICAL (12/19/2023 10:36 AM EDT) ETHANOL, MEDICAL Negative Negative 12/19/2023 11:14 AM EDT LABORATORY [facility] Blood Venous blood specimen / Unknown Venipuncture / Unknown 12/19/2023 10:36 AM EDT 12/19/2023 10:47 AM EDT Pepe Chaudhari MD LAB BLOOD ORDERABLES LABORATORY [facility] [address] [place] [address] * (ABNORMAL) COMPREHENSIVE METABOLIC PANEL (12/19/2023 10:36 AM EDT) BUN 25(H) 6 - 20 mg/dL 12/19/2023 11:14 AM EDT LABORATORY [facility] Creatinine 1.1(H) 0.5 - 1.0 mg/dL 12/19/2023 11:14 AM EDT LABORATORY [facility] Estimated Glomerular Filtration Rate 52(L) >=60 mL/min 12/19/2023 11:14 AM EDT LABORATORY [facility] Comment:eGFR is calculated b ased on the CKD-EPI 2020 equation Sodium 145 135 - 146 mmol/L 12/19/2023 11:14 AM EDT LABORATORY [facility] Potassium 3.3(L) 3.5 - 5.1 mmol/L 12/19/2023 11:14 AM EDT LABORATORY [facility] Chloride 100 98 - 107 mmol/L 12/19/2023 11:14 AM EDT LABORATORY [facility] CO2 34(H) 22 - 32 mmol/L 12/19/2023 11:14 AM EDT LABORATORY [facility] Anion Gap 11 7 - 15 mmol/L 12/19/2023 11:14 AM EDT LABORATORY [facility] Glucose 127(H) 70 - 120 mg/dL 12/19/2023 11:14 AM EDT LABORATORY [facility] Albumin 4.2 3.8 - 5.0 g/dL 12/19/2023 11:14 AM EDT LABORATORY [facility] AST 20 10 - 35 U/L 12/19/2023 11:14 AM EDT LABORATORY [facility] Alkaline Phosphatase 71 35 - 130 U/L 12/19/2023 11:14 AM EDT LAB[facility]ATORY [facility] Bilirubin, Total 0.5 <=1.2 mg/dL 12/19/2023 11:14 AM EDT LAB[facility]ATORY [facility] Calcium 9.6 8.4 - 10.2 mg/dL 12/19/2023 11:14 AM EDT LABORATORY [facility] Protein 6.7 6.0 - 8.3 g/dL 12/19/2023 11:14 AM EDT LAB[facility]ATORY [facility] ALT 16 10 - 35 U/L 12/19/2023 11:14 AM EDT LAB[facility]ATORY [facility] Blood Venous blood specimen / Unknown Venipuncture / Unknown 12/19/2023 10:36 AM EDT 12/19/2023 10:47 AM EDT Pepe Chaudhari MD LAB BLOOD ORDERABLES LABORATORY [facility] [address] [place] [id number] * XR FEMUR MINIMUM 2 VIEWS (12/19/2023 10:31 AM EDT) Anatomical Region Laterality Modality Femur, Lower Extremity, Hip Digi martha Radiography 12/19/2023 10:1 3 AM EDT Impressions 12/19/2023 10:42 AM EDT IMPRESSION: Impacted right subcapital fracture THIS DOCUMENT HAS BEEN ELECTRONICALLY SIGNED BY MAKEDA DE LA CRUZ MD Narrative 12/19/2023 10:42 AM EDT PROCEDURE INFORMATION: Exam: XR Right Femur Exam date and time: 12/19/2023 10:13 AM Age: 88 years old Clinical indication: Other: Fall with right leg pain TECHNIQUE: Imaging protocol: Radiologic exam of the right femur. Views: 2 views. COMPARISON: CTA ABD AORTA/FEM RUNOFF W CONTRAST 12/23/2022 7:30 PM FINDINGS: Bones/joints: There is an impacted subcapital fracture on the right. There is diffuse osteopenia. There is hip joint space narrowing superolaterally. The knee joint is maintained Soft tissues: Unremarkable. Procedure Note Makeda De La Cruz MD - 12/19/2023 PROCEDURE INFORMATION: Exam: XR Right Femur Exam date and time: 12/19/2023 10:13 AM Age: 88 years old Clinical indication: Other: Fall with right leg pain TECHNIQUE: Imaging protocol: Radiologic exam of the right femur. Views: 2 views. COMPARISON: CTA ABD AORTA/FEM RUNOFF W CONTRAST 12/23/2022 7:30 PM FINDINGS: Bones/joints: There is an impacted subcapital fracture on the right. Thereis diffuse osteopenia. There is hip joint space narrowing superolaterally.The knee joint is maintained Soft tissues: Unremarkable. IMPRESSION IMPRESSION: Impacted right subcapital fracture THIS DOCUMENT HAS BEEN ELECTRONICALLY SIGNED BY MAKEDA DE LA CRUZ MD Pepe Chaudhari MD RADIOLOGY ([facility]) * XR KNEE 4 OR MORE VIEWS (12/19/2023 10:31 AM EDT) Anatomical Region Laterality Modality Knee, Lower Extremity Digital Ra diography 12/19/2023 10:1 3 AM EDT Impressions 12/19/2023 10:43 AM EDT IMPRESSION: No fracture THIS DOCUMENT HAS BEEN ELECTRONICALLY SIGNED BY MAKEDA DE LA CRUZ MD Narrative 12/19/2023 10:43 AM EDT PROCEDURE INFORMATION: Exam: XR Right Knee Exam date and time: 12/19/2023 10:13 AM Age: 88 years old Clinical indication: Other: Fall with right knee pain TECHNIQUE: Imaging protocol: Radiologic exam of the right knee. Views: 4 or more views. COMPARISON: CTA ABD AORTA/FEM RUNOFF W CONTRAST 12/23/2022 7:30 PM FINDINGS: Bones/joints: There is diffuse osteopenia. The joint spaces are maintained. There is no fracture. No knee joint effusion is seen. There is chondrocalcinosis Soft tissues: Normal. Procedure Note Makeda De La Cruz MD - 12/19/2023 PROCEDURE INFORMATION: Exam: XR Right Knee Exam date and time: 12/19/2023 10:13 AM Age: 88 years old Clinical indication: Other: Fall with right knee pain TECHNIQUE: Imaging protocol: Radiologic exam of the right knee. Views: 4 or more views. COMPARISON: CTA ABD AORTA/FEM RUNOFF W CONTRAST 12/23/2022 7:30 PM FINDINGS: Bones/joints: There is diffuse osteopenia. The joint spaces aremaintained. There is no fracture. No knee joint effusion is seen. There is chondrocalcinosis Soft tissues: Normal. IMPRESSION IMPRESSION: No fracture THIS DOCUMENT HAS BEEN ELECTRONICALLY SIGNED BY MAKEDA DE LA CRUZ MD Pepe Chaudhari MD RADIOLOGY ([facility]) * XR TIB/FIB 2 VIEWS (12/19/2023 10:31 AM EDT) Anatomical Region Laterality Modality Lower Extremity, TibFib Digital Radiography 12/19/2023 10:1 3 AM EDT Impressions 12/19/2023 10:37 AM EDT IMPRESSION: No acute fracture is seen THIS DOCUMENT HAS BEEN ELECTRONICALLY SIGNED BY MAKEDA DE LA CRUZ MD Narrative 12/19/2023 10:37 AM EDT PROCEDURE INFORMATION: Exam: XR Right Tibia and Fibula Exam date and time: 12/19/2023 10:13 AM Age: 88 years old Clinical indication: Other: Fall with right leg pain TECHNIQUE: Imaging protocol: Radiologic exam of the right tibia and fibula. Views: 2 views. COMPARISON: CTA ABD AORTA/FEM RUNOFF W CONTRAST 12/23/2022 7:30 PM FINDINGS: Bones/joints: There is diffuse osteopenia. The joint spaces are maintained. No acute fracture is seen. Soft tissues: There is some soft tissue swelling around the ankle Procedure Note Makeda De La Cruz MD - 12/19/2023 PROCEDURE INFORMATION: Exam: XR Right Tibia and Fibula Exam date and time: 12/19/2023 10:13 AM Age: 88 years old Clinical indication: Other: Fall with right leg pain TECHNIQUE: Imaging protocol: Radiologic exam of the right tibia and fibula. Views: 2 views. COMPARISON: CTA ABD AORTA/FEM RUNOFF W CONTRAST 12/23/2022 7:30 PM FINDINGS: Bones/joints: There is diffuse osteopenia. The joint spaces aremaintained. No acute fracture is seen. Soft tissues: There is some soft tissue swelling around the ankle IMPRESSION IMPRESSION: No acute fracture is seen THIS DOCUMENT HAS BEEN ELECTRONICALLY SIGNED BY MAKEDA DE LA CRUZ MD Pepe Chaudhari MD RADIOLOGY ([facility]) * CT HEAD/BRAIN WO CONTRAST (12/19/2023 10:11 AM EDT) Anatomical Region Laterality Modality Head Computed Tomogra phy 12/19/2023 10:0 8 AM EDT Impressions 12/19/2023 10:17 AM EDT IMPRESSION: No acute abnormality THIS DOCUMENT HAS BEEN ELECTRONICALLY SIGNED BY MAKEDA DE LA CRUZ MD Narrative 12/19/2023 10:17 AM EDT PROCEDURE INFORMATION: Exam: CT Head Without Contrast Exam date and time: 12/19/2023 10:08 AM Age: 88 years old Clinical indication: Other: Significant trauma with possible severe neurologic injury or head pain TECHNIQUE: Imaging protocol: Computed tomography of the head without contrast. Radiation optimization: All CT scans at this facility use at least one of these dose optimization techniques: automated exposure control; mA and/or kV adjustment per patient size (includes targeted exams where dose is matched to clinical indication); or iterative reconstruction. COMPARISON: CT HEAD/BRAIN WO CONTRAST 03/25/2023 7:28 PM FINDINGS: Brain: There is mild cerebral atrophy. No intracranial hemorrhage is seen. There is no midline shift Cerebral ventricles: The ventricular system is unremarkable Paranasal sinuses: There is mucosal thickening within the sinuses Mastoid air cells: Visualized mastoid air cells are well aerated. Bones/joints: The calvarium is intact Soft tissues: No significant abnormality is identified within the soft tissue Procedure Note Makeda De La Cruz MD - 12/19/2023 PROCEDURE INFORMATION: Exam: CT Head Without Contrast Exam date and time: 12/19/2023 10:08 AM Age: 88 years old Clinical indication: Other: Significant trauma with possible severeneurologic injury or head pain TECHNIQUE: Imaging protocol: Computed tomography of the head without contrast. Radiation optimization: All CT scans at this facility use at least one ofthese dose optimization techniques: automated exposure control; mA and/or kV adjustment per patient size (includes targeted exams where dose is matchedto clinical indication); or iterative reconstruction. COMPARISON: CT HEAD/BRAIN WO CONTRAST 03/25/2023 7:28 PM FINDINGS: Brain: There is mild cerebral atrophy. No intracranial hemorrhage is seen. There is no midline shift Cerebral ventricles: The ventricular system is unremarkable Paranasal sinuses: There is mucosal thickening within the sinuses Mastoid air cells: Visualized mastoid air cells are well aerated. Bones/joints: The calvarium is intact Soft tissues: No significant abnormality is identified within the softtissue IMPRESSION IMPRESSION: No acute abnormality THIS DOCUMENT HAS BEEN ELECTRONICALLY SIGNED BY MAKEDA DE LA CRUZ MD Pepe Chaudhari MD RAD CT * XR PELVIS 1 VIEW (12/19/2023 10:07 AM EDT) Anatomical Region Laterality Modality Pelvis, Lower Extremity Digital Radiography 12/19/2023 9:59 AM EDT Impressions 12/19/2023 10:18 AM EDT IMPRESSION: Impacted subcapital fracture on the right THIS DOCUMENT HAS BEEN ELECTRONICALLY SIGNED BY MAKEDA DE LA CRUZ MD Narrative 12/19/2023 10:18 AM EDT PROCEDURE INFORMATION: Exam: XR Pelvis Exam date and time: 12/19/2023 9:59 AM Age: 88 years old Clinical indication: Other: Trauma, S/P fall TECHNIQUE: Imaging protocol: Radiologic exam of the pelvis. Views: 1 or 2 view. COMPARISON: DX XR PELVIS 1 VIEW 03/25/2023 7:31 PM FINDINGS: Bones/joints: There is diffuse osteopenia. There is an impacted subcapital fracture identified on the right. There is hip joint space narrowing superolaterally on the right. There is degenerative change in the lower lumbar spine. Soft tissues: Unremarkable. Organs: There are calcifications within the pelvis within calcified uterine fibroids Procedure Note Makeda De La Cruz MD - 12/19/2023 PROCEDURE INFORMATION: Exam: XR Pelvis Exam date and time: 12/19/2023 9:59 AM Age: 88 years old Clinical indication: Other: Trauma, S/P fall TECHNIQUE: Imaging protocol: Radiologic exam of the pelvis. Views: 1 or 2 view. COMPARISON: DX XR PELVIS 1 VIEW 03/25/2023 7:31 PM FINDINGS: Bones/joints: There is diffuse osteopenia. There is an impacted subcapital fracture identified on the right. There is hip joint space narrowing superolaterally on the right. There is degenerative change in the lowerlumbar spine. Soft tissues: Unremarkable. Organs: There are calcifications within the pelvis within calcifieduterine fibroids IMPRESSION IMPRESSION: Impacted subcapital fracture on the right THIS DOCUMENT HAS BEEN ELECTRONICALLY SIGNED BY MAKEDA DE LA CRUZ MD Pepe Chaudhari MD RADIOLOGY ([facility]) * XR CHEST 1 VIEW (12/19/2023 10:07 AM EDT) Anatomical Region Laterality Modality Chest Digital Radiogra phy 12/19/2023 10:0 0 AM EDT Impressions 12/19/2023 10:21 AM EDT IMPRESSION: No acute abnormality THIS DOCUMENT HAS BEEN ELECTRONICALLY SIGNED BY MAKEDA DE LA CRUZ MD Narrative 12/19/2023 10:21 AM EDT PROCEDURE INFORMATION: Exam: XR Chest Exam date and time: 12/19/2023 10:00 AM Age: 88 years old Clinical indication: Other: Trauma, S/P fall TECHNIQUE: Imaging protocol: Radiologic exam of the chest. Views: 1 view. COMPARISON: DX XR CHEST 1 VIEW 11/10/2023 12:22 AM FINDINGS: Tubes, catheters and devices: A cardiac pacemaker is identified Lungs: There is no consolidation Pleural spaces: There is no pleural effusion. No definite pneumothorax is seen Heart/Mediastinum: The heart is not enlarged Bones/joints: Osteopenia is seen. There is degenerative change in the spine. There is an old healed right clavicular fracture Procedure Note Makeda De La Cruz MD - 12/19/2023 PROCEDURE INFORMATION: Exam: XR Chest Exam date and time: 12/19/2023 10:00 AM Age: 88 years old Clinical indication: Other: Trauma, S/P fall TECHNIQUE: Imaging protocol: Radiologic exam of the chest. Views: 1 view. COMPARISON: DX XR CHEST 1 VIEW 11/10/2023 12:22 AM FINDINGS: Tubes, catheters and devices: A cardiac pacemaker is identified Lungs: There is no consolidation Pleural spaces: There is no pleural effusion. No definite pneumothorax isseen Heart/Mediastinum: The heart is not enlarged Bones/joints: Osteopenia is seen. There is degenerative change in thespine. There is an old healed right clavicular fracture IMPRESSION IMPRESSION: No acute abnormality THIS DOCUMENT HAS BEEN ELECTRONICALLY SIGNED BY MAKEDA DE LA CRUZ MD Pepe Chaudhari MD RADIOLOGY ([facility]) documented in this encounter Visit Diagnoses Diagnosis Fall at home- Primary Unspecified fall Closed fracture of right hip, initial encounter (HCC) Fall Unspecified fall Chest pain Chest pain, unspecified Closed fracture of right femur (HCC) Closed fracture of unspecified part of femur Type 2 diabetes mellitus with hemoglobin A1c goal of less than 7.0% (HCC) Chronic anticoagulation Long-term (current) use of anticoagulants (HFpEF) heart failure with preserved ejection fraction (HCC) PAD (peripheral artery disease) (HCC) Peripheral vascular disease, unspecified Coronary artery disease involving viejas coronary artery of viejas heart without angina pectoris Atrial fibrillation (HCC) Atrial fibrillation Closed fracture of right hip (HCC) Closed fracture of unspecified part of neck of femur documented in this encounter Administered Medications Inactive Administered Medications - up to 3 most recent administrations Medication Order MAR Action Action Date Dose Rate Site Acetaminophen (Tylenol) tab 650 mg 650 mg, Oral, Q8H, First dose on Tue12/19/23 at 1430, Until Discontinued, Maximum of 4 grams (4000 mg) per day. Given 12/21/2023 6:09 AM EDT 650 mg Given 12/20/2023 10:22 PM EDT 650 mg Given 12/20/2023 1:53 PM EDT 650 mg Acetaminophen (Tylenol) tab 975 mg 975 mg, Oral, Q8H, First dose on Tue12/21/23 at 2200, Last dose on Tue12/26/23 at 1400, For 5 days, Avoid in patients with severe hepatic impairment or severe active liver disease. Use for 5 days, Post-op Given 12/26/2023 6:46 AM EDT 975 mg Given 12/25/2023 8:49 PM EDT 975 mg Given 12/25/2023 1:12 PM EDT 975 mg albuterol-ipratropium (Duoneb) inhalation solution 3 mL 3 mL, Nebulizer, Q4H PRN Dyspnea, Starting on Tue12/19/23 at 1730, Until Tue12/26/23 at 1629, 3 mL = 0.5 mg ipratropium/ 2.5 mg albuterol Apixaban (Eliquis) tab 5 mg 5 mg, Oral, BID (.AM/PM), First dose on Tue12/23/23 at 0900, Until Discontinued Given 12/26/2023 9:18 AM EDT 5 mg Given 12/25/2023 8:49 PM EDT 5 mg Given 12/25/2023 9:11 AM EDT 5 mg aspirin chew tab 81 mg 81 mg, Oral, Daily(AM), First dose on Tue12/20/23 at 0900, Until Discontinued Given 12/26/2023 9:18 AM EDT 81 mg Given 12/25/2023 9:11 AM EDT 81 mg Given 12/24/2023 10:06 AM EDT 81 mg atorvaSTATin (Lipitor) tab 40 mg 40 mg, Oral, [id number], First dose on Tue12/19/23 at 1800, Until Discontinued Given 12/25/2023 5:08 PM EDT 40 mg Given 12/24/2023 5:31 PM EDT 40 mg Given 12/22/2023 6:43 PM EDT 40 mg ceFAZolin in dextrose (Ancef) ivpb 2 g 2 g, IV Piggyback, Q8H, 2 doses, First dose on Tue12/21/23 at 2000, Last dose on Tue12/22/23 at 0600, Post-op New Bag 12/22/2023 6:14 AM EDT 2 g 100 mL/hr New Bag 12/21/2023 8:18 PM EDT 2 g 100 mL/hr colchicine tab 0.6 mg 0.6 mg, Oral, Daily(AM), First dose on Tue12/20/23 at 0900, Until Discontinued Given 12/26/2023 9:20 AM EDT 0.6 mg Given 12/25/2023 9:11 AM EDT 0.6 mg Given 12/24/2023 10:07 AM EDT 0.6 mg dextrose 50% inj 25 mL 25 mL, IV Push, PRN Hypoglycemia, Other, For blood glucose 54 - 69 mg/dL or 70 - 100 mg/dL with symptoms AND patient is unresponsive, NPO, OR unable to swallow, Starting on Tue12/19/23 at 1355, Until Tue12/26/23 at 1629, Administer IV. Recheck blood glucose after 15 minutes. Notify provider. dextrose 50% inj 50 mL 50 mL, IV Push, PRN Hypoglycemia, Other, For blood glucose below 54 mg/dL AND patient unresponsive, NPO, OR unable to swallow, Starting on Tue12/19/23 at 1355, Until Tue12/26/23 at 1629, Administer IV. Recheck blood glucose in 15 minutes. Notify provider. Docusate Sodium (Colace) cap 100 mg 100 mg, Oral, BID (.AM/PM), First dose on Tue12/21/23 at 2100, Until Discontinued, For oral administration ONLY, if route of administration is other than oral and alternative product must be ordered., Post-op Given 12/26/2023 9:1 8 AM EDT 100 mg Given 12/25/2023 8:49 PM EDT 100 mg Given 12/25/2023 9:11 AM EDT 100 mg fluticasone furoate-vilanterol (BREO ellipta) 200-25 MCG/ACT inhaler 1 Puff 1 Puff, Inhalation, Daily(AM), First dose on Tue12/20/23 at 0900, Until Discontinued Given 12/26/2023 7:36 AM EDT 1 Puf f Given 12/25/2023 7:42 AM EDT 1 Puff Given 12/24/2023 7:38 AM EDT 1 Puff glucagon (Glucagen) inj 1 mg 1 mg, Intramuscular, PRN Hypoglycemia, Other, If patient is unresponsive, or NPO and has no IV access, Starting on Tue12/19/23 at 1355, Until Tue12/26/23 at 1629, NPO and no IV access with either 1) blood glucose less than 100 mg/dL and symptomatic OR 2) blood glucose less than 70 mg/dL and asymptomatic Glucose (Glutose 15) 40 % gel 15 g of glucose 15 g of glucose, Oral, PRN Hypoglycemia (low sugar), Other, For blood glucose 54 - 69 mg/dL or 70 - 100 mg/dL with symptoms AND patient alert WITH difficulty chewing/swallowing, Starting on Tue12/19/23 at 1355, Until Tue12/26/23 at 1629, Administer gel. Recheck blood glucose after 15 minutes. Notify provider. 37.5 gram tube = 15 grams glucose = 1 each Glucose (Glutose 15) 40 % gel 30 g of glucose 30 g of glucose, Oral, PRN Hypoglycemia (low sugar), Other, For blood glucose below 54 mg/dL AND patient alert WITH difficulty chewing/swallowing, Starting on Tue12/19/23 at 1355, Until Tue12/26/23 at 1629, Administer gel. Recheck blood glucose after 15 minutes. Notify provider. 37.5 gram tube = 15 grams glucose = 1 each glucose chew tab 16 g 16 g, Oral, PRN Hypoglycemia, Other, For blood glucose 54 - 69 mg/dL or 70 - 100 mg/dL with symptoms and patient alert without difficulty chewing/swallowing., Starting on Tue12/19/23 at 1355, Until Tue12/26/23 at 1629 hEParin 1000 UNIT/ML inj 1,900 Units 1,900 Units (rounded from 1,905 Units = 30 Units/kg 63.5 kg), IV Push, PRN Other, If most recent aPTT result is less than or equal to 64 seconds, Starting on Tue12/19/23 at 1354, Until Tue12/22/23 at 1419, Repeat aPTT 6 hours after bolus is administered. Send message to pharmacy if dose needed. Given 12/19/2023 10:33 PM EDT 1,900 Units hEParin 25,000 units in 250 mL (aPTT-Cardiac) infusion Intravenous, at 0-19.05 mL/hr, Start heparin as soon as baseline labs are drawn. Please select this medication from the infusion pump library! Concentration: 100 units/mL Expires 96 hours after spiking on (date) at (hour) , TITRATE, Starting on Tue12/19/23 at 1430, Until Tue12/20/23 at 1435 Rate Change 12/19/2023 10:33 PM EDT 15 Units/kg/hr 9.53 mL/hr Restarted 12/19/2023 8:20 PM EDT 12 Units/kg/hr 7.62 mL/h r Restarted 12/19/2023 7:26 PM EDT 12 Units/kg/hr 7.62 mL/h r hEParin 25,000 units in 250 mL (aPTT-Cardiac) infusion Intravenous, at 0-19.05 mL/hr, Start heparin as soon as baseline labs are drawn. Please select this medication from the infusion pump library! Concentration: 100 units/mL Expires 96 hours after spiking on (date) at (hour) , TITRATE, Starting on Tue12/20/23 at 1515, Until Silva 12/22/23 at 1419 Rate Verify 12/20/2023 10:28 PM EDT 12 Units/kg/hr 7.62 mL/hr Rate Verify 12/20/2023 10:26 PM EDT 12 Units/kg/hr 7.62 mL /hr New Bag 12/20/2023 3:19 PM EDT 12 Units/kg/hr 7.62 mL/h r HYDROmorphone (Dilaudid) inj 0.5 mg 0.5 mg, IV Push, Q15 MIN PRN Severe/Breakthrough Pain, Starting on Tue12/21/23 at 1403, Until Tue12/21/23 at 1507, Administer only postop in PACU. Hold for respiratory rate less than 12. Administer up to a total of 2mg., PACU Given 12/21/2023 2:17 PM EDT 0.5 mg insulin aspart (NovoLOG) inj Subcutaneous, W/MEALS AND HS, First dose on Tue12/19/23 at 1700, Until Discontinued, MEDIUM DOSE (Usual starting dose): Sliding Scale Correctional insulin may be given if the patient is NPO. Dose based on standard build from Insulin Calculator. Do not modify insulin doses in administration instructions! , Glucose less than 70 instructions: Obtain STAT lab blood glucose and call covering provider., Glucose 80-150 (units): 0, Glucose 151-200 (units): 2, Glucose 201-250 (units): 4, Glucose 251-300 (units): 6, Glucose greater than 300 (units): 8, Glucose greater than 300 instructions: Give suggested insulin dose and call covering provider. Given 12/25/2023 12:16 PM EDT 2 Units Arm Left Upper Given 12/25/2023 9:10 AM EDT 2 Units Ar m Left Upper Given 12/24/2023 5:30 PM EDT 4 Units Ar m Right Upper Iron Sucrose (Venofer) 200 mg in NSS 100 mL ivpb 200 mg, IV Piggyback, ONCE, 1 dose, On Tue12/26/23 at 0830, Administer over 60 Minutes New Bag 12/26/2023 9:17 AM EDT 200 mg 110 mL/hr isolyte-S pH 7.4 infusion Intravenous, at 50 mL/hr, Plasma-LYTE 148, isolyte-S, and isolyte-S pH 7.4 are considered equivalent - including for MAR barcode scanning., CONTINUOUS, Starting on Tue12/20/23 at 1015, Until Tue12/22/23 at 1419 Restarted 12/21/2023 11:45 AM EDT Continue from Pre-Op 12/21/2023 11:41 AM EDT 50 mL/hr Restarted 12/21/2023 11:22 AM EDT 50 mL/hr isolyte-S pH 7.4 infusion Intravenous, at 50 mL/hr, Plasma-LYTE 148, isolyte-S, and isolyte-S pH 7.4 are considered equivalent - including for MAR barcode scanning., CONTINUOUS, Starting on Tue12/21/23 at 1430, Until Tue12/22/23 at 1419, Post-op Rate Verify 12/22/2023 4:01 AM EDT 50 mL/hr Restarted 12/21/2023 11:59 PM EDT 50 mL/hr Rate Verify 12/21/2023 11:45 PM EDT 50 mL/hr melatonin tab 3 mg 3 mg, Oral, HS PRN Insomnia, Starting on Tue12/19/23 at 1353, Until Tue12/26/23 at 1629 Given 12/19/2023 8:27 PM EDT 3 m g metoprolol succinate XL (toPROL XL) tab 25 mg 25 mg, Oral, Daily(AM), First dose on Tue12/19/23 at 1430, Until Discontinued, Hold for HR less than 60 or SBP below 100 and notify service if dose is held This med should NOT be Crushed or Chewed. Given 12/26/2023 9:18 AM EDT 25 mg Given 12/25/2023 9:11 AM EDT 25 mg Given 12/24/2023 10:07 AM EDT 25 mg morphine sulfate inj 1 mg 1 mg, Intravenous, ONCE, On Tue12/19/23 at 1245, For 1 dose Given 12/19/2023 12:15 PM EDT 1 mg NSS 0.9% 500 mL bolus infusion Intravenous, at 500 mL/hr Administer over 60 Minutes, Administer entire volume within 60 minutes or less., ONCE, 1 dose, On Tue12/23/23 at 1830 New Bag 12/23/2023 6:01 PM EDT 500 mL 500 mL/hr omeprazole (PriLOSEC) cap 20 mg 20 mg, Oral, Daily(AM), First dose on Tue12/20/23 at 0900, Until Discontinued, This med should NOT be Crushed or Chewed Given 12/26/2023 9:18 AM EDT 20 mg Given 12/25/2023 9:11 AM EDT 20 mg Given 12/24/2023 10:07 AM EDT 20 mg ondansetron (Zofran) inj 4 mg 4 mg, IV Push, ONCE, On Tue12/19/23 at 1245, For 1 dose Given 12/19/2023 12:12 PM EDT 4 mg ondansetron (Zofran) inj 4 mg 4 mg, IV Push, Q6H PRN Other, May use for nausea or vomiting if patient unable to take oral ondansetron, Starting on Tue12/21/23 at 1347, Until Tue12/26/23 at 1629, Post-op ondansetron ODT (Zofran) tab 4 mg 4 mg, On Tongue, Q6H PRN Nausea, Starting on Tue12/21/23 at 1347, Until Tue12/26/23 at 1629, Post-op oxyCODONE (Oxy IR) tab 5 mg 5 mg, Oral, Q6H PRN Pain, Moderate, Pain, Severe, Starting on Tue12/19/23 at 1355, Until Tue12/26/23 at 1629 Given 12/20/2023 6:04 PM EDT 5 mg Given 12/20/2023 8:51 AM EDT 5 mg Given 12/19/2023 11:48 PM EDT 5 mg oxyCODONE (Oxy IR) tab 5 mg 5 mg, Oral, Q4H PRN Pain, Severe, Starting on Tue12/21/23 at 1348, Until Tue12/26/23 at 1629, Post-op Given 12/24/2023 9:47 PM EDT 5 mg Given 12/22/2023 5:00 PM EDT 5 mg Given 12/22/2023 7:33 AM EDT 5 mg oxygen GAS Inhalation, OXYGEN, First dose on Tue12/19/23 at 1045, Until Discontinued, Device/Managed by: Low Flow Device, Goal SPO2 (%): 94 or greater, Starting Device: Nasal Cannula, Initial Flow Rate (LPM): 2, Lowest Support: Nasal Cannula: Flow 0-6 LPM. Titrate up/down by 1 LPM., Titration Interval: Q2 minutes and as needed., Notify Provider: For sudden DECREASE in resting SPO2 to less than 85% and when escalating delivery device., Wean patient off Oxygen when the oxygen saturation is greater than or equal to 93% Oxygen On 12/26/2023 8:00 AM EDT Oxygen On 12/26/2023 12:00 AM EDT Oxygen On 12/25/2023 4:00 PM EDT potassium chloride ER tab 40 mEq 40 mEq, Oral, ONCE, On Tue12/19/23 at 1530, For 1 dose, This med should NOT be Crushed or Chewed Given 12/19/2023 2:56 PM EDT 40 mEq Pregabalin (Lyrica) cap 150 mg 150 mg, Oral, BID (.AM/PM), First dose on Tue12/19/23 at 2100, Until Discontinued Given 12/25/2023 8:49 PM EDT 150 mg Given 12/25/2023 9:11 AM EDT 150 mg Given 12/24/2023 9:47 PM EDT 150 mg Pregabalin (Lyrica) cap 75 mg 75 mg, Oral, BID (.AM/PM), First dose (after last modification) on Tue12/26/23 at 2100, Until Discontinued sodium chloride 0.9 % flush peripheral yanet 3 mL 3 mL, IV Push, QSHIFT, First dose on Tue12/19/23 at 1600, Until Discontinued, Do not flush if lock, PICC, or central line not in place; IV infusing or unable to flush. Given 12/20/2023 8:00 AM EDT 3 mL Given 12/19/2023 4:00 PM EDT 3 mL sodium chloride 0.9 % flush peripheral yanet 3 mL 3 mL, IV Push, QSHIFT, First dose on Tue12/21/23 at 1600, Until Discontinued, Do not flush if lock, PICC, or central line not in place; IV infusing or unable to flush., Post-op Given 12/23/2023 3:27 PM EDT 3 mL Given 12/23/2023 8:06 AM EDT 3 mL Given 12/23/2023 12:00 AM EDT 3 mL Torsemide (Demadex) tab 40 mg 40 mg, Oral, BID (0700,1900), First dose on Tue12/19/23 at 1900, Until Discontinued Given 12/26/2023 6:46 AM EDT 40 mg Given 12/25/2023 5:08 PM EDT 40 mg Given 12/25/2023 6:15 AM EDT 40 mg traMADol (Ultram) tab 25 mg 25 mg, Oral, Q6H PRN Pain, Mild, Starting on Tue12/19/23 at 1356, Until Tue12/26/23 at 1629 Given 12/23/2023 8:23 AM EDT 25 mg Given 12/20/2023 1:56 PM EDT 25 mg traMADol (Ultram) tab 25 mg 25 mg, Oral, Q12H PRN Pain, Moderate, Starting on Silva 12/22/23 at 0600, Until Tue12/26/23 at 1629, Post-op Given 12/26/2023 1:47 AM EDT 25 mg Given 12/22/2023 2:35 PM EDT 25 mg documented in this encounter Active and Recently Administered Medications Times are shown in EDT. Scheduled Medication Order 12/24/2023 12/25/2023 12/26/2023 Acetaminophen (Tylenol) tab 975 mg 975 mg, Oral, Q8H, First dose on Tue12/21/23 at 2200, Last dose on Tue12/26/23 at 1400, For 5 days, Avoid in patients with severe hepatic impairment or severe active liver disease. Use for 5 days, Post-op 0619 (Given - Provider: Mikayla De Leon RN)1332 (Given - Provider: Cornelio Hanna, KRISTOPHER)2147 (Given - Provider: Mikayla De Leon RN) 0615 (Given - Provider: Mikayla De Leon RN)1312 (Given - Provider: Cornelio Hanna, KRISTOPHER)2049 (Given - Provider: Trinidad Hicks, KRISTOPHER) 0646 (Given - Provider: Trinidad Hicks, KRISTOPHER) Apixaban (Eliquis) tab 5 mg 5 mg, Oral, BID (.AM/PM), First dose on Tue12/23/23 at 0900, Until Discontinued 1006 (Given - Provider: Cornelio Hanna RN)2147 (Given - Provider: Mikayla De Leon RN) 0911 (Given - Provider: Cornelio Hanna RN)2048 (Given - Provider: Trinidad Hicks, KRISTOPHER) 0918 (Given - Provider: Neena Mauricio, RN) aspirin chew tab 81 mg 81 mg, Oral, Daily(AM), First dose on Tue12/20/23 at 0900, Until Discontinued 1006 (Given - Provider: Cornelio Hanna RN) 0911 (Given - Provider: Cornelio Hanna RN) 0918 (Given - Provider: Neena Mauricio, KRISTOPHER) atorvaSTATin (Lipitor) tab 40 mg 40 mg, Oral, [id number], First dose on Tue12/19/23 at 1800, Until Discontinued 1731 (Given - Provider: Cornelio Hanna RN) 1708 (Given - Provider: Cornelio Hanna RN) colchicine tab 0.6 mg 0.6 mg, Oral, Daily(AM), First dose on Tue12/20/23 at 0900, Until Discontinued 1007 (Given - Provider: Cornelio Hanna RN) 0911 (Given - Provider: Cornelio Hanna RN) 0920 (Given - Provider: Neena Mauricio, KRISTOPHER) Docusate Sodium (Colace) cap 100 mg 100 mg, Oral, BID (.AM/PM), First dose on Tue12/21/23 at 2100, Until Discontinued, For oral administration ONLY, if route of administration is other than oral and alternative product must be ordered., Post-op 1007 (Given - Provider: Cornelio Hanna RN)2100 (Not Given - Provider: Mikayla De Leon RN - Reason: Refused-Notify Provider) 09 (Given - Provider: Cornelio Hanna RN)2048 (Given - Provider: Trinidad Hicks, KRISTOPHER) 0918 (Given - Provider: Neena Mauricio RN) fluticasone furoate-vilanterol (BREO ellipta) 200-25 MCG/ACT inhaler 1 Puff 1 Puff, Inhalation, Daily(AM), First dose on Tue12/20/23 at 0900, Until Discontinued 0738 (Given - Provider: Olu Queen, GRANT) 0742 (Given - Provider: Olu Queen, GRANT) 0736 (Given - Provider: Ena Flores, SYSTEMS OPERATOR) insulin aspart (NovoLOG) inj Subcutaneous, W/MEALS AND HS, First dose on Tue12/19/23 at 1700, Until Discontinued, MEDIUM DOSE (Usual starting dose): Sliding Scale Correctional insulin may be given if the patient is NPO. Dose based on standard build from Insulin Calculator. Do not modify insulin doses in administration instructions! , Glucose less than 70 instructions: Obtain STAT lab blood glucose and call covering provider., Glucose 80-150 (units): 0, Glucose 151-200 (units): 2, Glucose 201-250 (units): 4, Glucose 251-300 (units): 6, Glucose greater than 300 (units): 8, Glucose greater than 300 instructions: Give suggested insulin dose and call covering provider. 0800 (Not Given - Provider: Cornelio Hanna RN - Reason: Parameter(s) Not Met)1207 (Given - Provider: Cornelio Hanna RN)1730 (Given - Provider: Cornelio Hanna RN)2200 (Not Given - Provider: Mikayla De Leon RN - Reason: Parameter(s) Not Met) 0910 (Given - Provider: Cornelio Hanna RN)1216 (Given - Provider: Cornelio Hanna RN)1700 (Not Given - Provider: Cornelio Hanna RN - Reason: Parameter(s) Not Met)2200 (No Insulin - Provider: Trinidad Hicks RN - Reason: Parameter(s) Not Met) 0800 (No Insulin - Provider: Neena Mauricio RN - Reason: Parameter(s) Not Met)1200 (Due) Iron Sucrose (Venofer) 200 mg in NSS 100 mL ivpb (COMPLETED) 200 mg, IV Piggyback, ONCE, 1 dose, On Tue12/26/23 at 0830, Administer over 60 Minutes 0917 (New Bag - Provider: Neena Mauricio, RN) metoprolol succinate XL (toPROL XL) tab 25 mg 25 mg, Oral, Daily(AM), First dose on Tue12/19/23 at 1430, Until Discontinued, Hold for HR less than 60 or SBP below 100 and notify service if dose is held This med should NOT be Crushed or Chewed. 1007 (Given - Provider: Cornelio Hanna RN) 910 (Given - Provider: Cornelio Hanna RN) 917 (Given - Provider: Neena Mauricio, RN) omeprazole (PriLOSEC) cap 20 mg 20 mg, Oral, Daily(AM), First dose on Tue12/20/23 at 0900, Until Discontinued, This med should NOT be Crushed or Chewed 1007 (Given - Provider: Cornelio Hanna RN) 910 (Given - Provider: Cornelio Hanna RN) 917 (Given - Provider: Neena Mauricio, RN) oxygen GAS Inhalation, OXYGEN, First dose on Tue12/19/23 at 1045, Until Discontinued, Device/Managed by: Low Flow Device, Goal SPO2 (%): 94 or greater, Starting Device: Nasal Cannula, Initial Flow Rate (LPM): 2, Lowest Support: Nasal Cannula: Flow 0-6 LPM. Titrate up/down by 1 LPM., Titration Interval: Q2 minutes and as needed., Notify Provider: For sudden DECREASE in resting SPO2 to less than 85% and when escalating delivery device., Wean patient off Oxygen when the oxygen saturation is greater than or equal to 93% 0000 (Oxygen On - Provider: Mikayla De Leon RN)0800 (Oxygen On - Provider: Cornelio Hanna RN)1600 (Oxygen On - Provider: Cornelio Hanna RN) 0000 (Oxygen On - Provider: Mikayla De Leon RN)0800 (Oxygen On - Provider: Cornelio Hanna RN)1600 (Oxygen On - Provider: Cornelio Hanna RN) 0000 (Oxygen On - Provider: Trinidad Hicks RN)0800 (Oxygen On - Provider: Neena Mauricio, KRISTOPHER) Pregabalin (Lyrica) cap 150 mg (CANCELED) 150 mg, Oral, BID (.AM/PM), First dose on Tue12/19/23 at 2100, Until Discontinued 1006 (Given - Provider: Cornelio Hanna RN)2146 (Given - Provider: Mikayla De Leon RN) 0911 (Given - Provider: Cornelio Hanna, KRISTOPHER)2049 (Given - Provider: Trinidad Hicks, RN) 0900 (Not Given - Provider: Neena Mauricio RN - Reason: Order Clarified - Comment: Modified order per physician) Pregabalin (Lyrica) cap 75 mg 75 mg, Oral, BID (.AM/PM), First dose (after last modification) on Tue12/26/23 at 2100, Until Discontinued Torsemide (Demadex) tab 40 mg 40 mg, Oral, BID (0700,1900), First dose on Tue12/19/23 at 1900, Until Discontinued 0619 (Given - Provider: Mikayla De Leon RN)1731 (Given - Provider: Cornelio Hanna RN) 0615 (Given - Provider: Mikayla De Leon RN)1708 (Given - Provider: Cornelio Hanna, KRISTOPHER) 0646 (Given - Provider: Trinidad Hicks RN) PRN Medication Order 12/24/2023 12/25/2023 12/26/2023 Acetaminophen (Tylenol) tab 975 mg 975 mg, Oral, Q6H PRN Pain, Mild, Starting on Tue12/26/23 at 0000, Until Tue12/26/23 at 1629, Begin after around the clock acetaminophen order discontinued (S+5). Maximum 4 g acetaminophen/day. Avoid in patients with severe hepatic impairment or severe active liver disease., Post-op albuterol-ipratropium (Duoneb) inhalation solution 3 mL 3 mL, Nebulizer, Q4H PRN Dyspnea, Starting on Tue12/19/23 at 1730, Until Tue12/26/23 at 1629, 3 mL = 0.5 mg ipratropium/ 2.5 mg albuterol dextrose 50% inj 25 mL 25 mL, IV Push, PRN Hypoglycemia, Other, For blood glucose 54 - 69 mg/dL or 70 - 100 mg/dL with symptoms AND patient is unresponsive, NPO, OR unable to swallow, Starting on Tue12/19/23 at 1355, Until Tue12/26/23 at 1629, Administer IV. Recheck blood glucose after 15 minutes. Notify provider. dextrose 50% inj 50 mL 50 mL, IV Push, PRN Hypoglycemia, Other, For blood glucose below 54 mg/dL AND patient unresponsive, NPO, OR unable to swallow, Starting on Tue12/19/23 at 1355, Until Tue12/26/23 at 1629, Administer IV. Recheck blood glucose in 15 minutes. Notify provider. Docusate Sodium (Colace) cap 100 mg 100 mg, Oral, BID PRN Constipation, Starting on Tue12/19/23 at 1349, Until Tue12/26/23 at 1629, For oral administration ONLY, if route of administration is other than oral and alternative product must be ordered. glucagon (Glucagen) inj 1 mg 1 mg, Intramuscular, PRN Hypoglycemia, Other, If patient is unresponsive, or NPO and has no IV access, Starting on Tue12/19/23 at 1355, Until Tue12/26/23 at 1629, NPO and no IV access with either 1) blood glucose less than 100 mg/dL and symptomatic OR 2) blood glucose less than 70 mg/dL and asymptomatic Glucose (Glutose 15) 40 % gel 15 g of glucose 15 g of glucose, Oral, PRN Hypoglycemia (low sugar), Other, For blood glucose 54 - 69 mg/dL or 70 - 100 mg/dL with symptoms AND patient alert WITH difficulty chewing/swallowing, Starting on Tue12/19/23 at 1355, Until Tue12/26/23 at 1629, Administer gel. Recheck blood glucose after 15 minutes. Notify provider. 37.5 gram tube = 15 grams glucose = 1 each Glucose (Glutose 15) 40 % gel 30 g of glucose 30 g of glucose, Oral, PRN Hypoglycemia (low sugar), Other, For blood glucose below 54 mg/dL AND patient alert WITH difficulty chewing/swallowing, Starting on Tue12/19/23 at 1355, Until Tue12/26/23 at 1629, Administer gel. Recheck blood glucose after 15 minutes. Notify provider. 37.5 gram tube = 15 grams glucose = 1 each glucose chew tab 16 g 16 g, Oral, PRN Hypoglycemia, Other, For blood glucose 54 - 69 mg/dL or 70 - 100 mg/dL with symptoms and patient alert without difficulty chewing/swallowing., Starting on Tue12/19/23 at 1355, Until Tue12/26/23 at 1629 melatonin tab 3 mg 3 mg, Oral, HS PRN Insomnia, Starting on Tue12/19/23 at 1353, Until Tue12/26/23 at 1629 naloxone (Narcan) 0.4 MG/ML inj 0.08 mg 0.08 mg, IV Push, PRN Other, If patient is oversedated or Respiratory Rate less than 8, Starting on Tue12/21/23 at 1347, Until Tue12/26/23 at 1629, Call provider if patient is oversedated or Respiratory Rate is less than 8, Post-op ondansetron (Zofran) inj 4 mg 4 mg, IV Push, Q6H PRN Nausea, Starting on Tue12/19/23 at 1353, Until Tue12/26/23 at 1629 ondansetron (Zofran) inj 4 mg(Linked Group 1) 4 mg, IV Push, Q6H PRN Other, May use for nausea or vomiting if patient unable to take oral ondansetron, Starting on Tue12/21/23 at 1347, Until Tue12/26/23 at 1629, Post-op ondansetron ODT (Zofran) tab 4 mg(Linked Group 1) 4 mg, On Tongue, Q6H PRN Nausea, Starting on Tue12/21/23 at 1347, Until Tue12/26/23 at 1629, Post-op oxyCODONE (Oxy IR) tab 5 mg 5 mg, Oral, Q6H PRN Pain, Moderate, Pain, Severe, Starting on Tue12/19/23 at 1355, Until Tue12/26/23 at 1629 oxyCODONE (Oxy IR) tab 5 mg 5 mg, Oral, Q4H PRN Pain, Severe, Starting on Tue12/21/23 at 1348, Until Tue12/26/23 at 1629, Post-op 2147 (Given - Provider: Mikayla De Leon RN) sodium chloride 0.9 % flush/inj 3 mL 3 mL, IV Push, PRN Other, Line Patency, Starting on Tue12/19/23 at 1351, Until Tue12/26/23 at 1629, Do not flush if lock, PICC, or central line not in place, IV infusing or unable to flush traMADol (Ultram) tab 25 mg 25 mg, Oral, Q6H PRN Pain, Mild, Starting on 12/19/23 at 1356, Until Tue12/26/23 at 1629 traMADol (Ultram) tab 25 mg 25 mg, Oral, Q12H PRN Pain, Moderate, Starting on Silva 12/22/23 at 0600, Until 12/26/23 at 1629, Post-op 0147 (Given - Provid er: Trinidad Hicks RN) Linked Groups Order Group 1: ondansetron ODT (Zofran) tab 4 mgJump to med 4 mg, On Tongue, Q6H PRN Nausea, Starting on 12/21/23 at 1347, Until Tue12/26/23 at 1629, Post-op Or ondansetron (Zofran) inj 4 mgJump to med 4 mg, IV Push, Q6H PRN Other, May use for nausea or vomiting if patient unable to take oral ondansetron, Starting on Tue12/21/23 at 1347, Until Tue12/26/23 at 1629, Post-op documented in this encounter Advance Directives Latest [...] the patient have Health Care Power of Vp Product Management? Yes, not currently available Full Code 01/28/2023 [...] Discussed due to patient's condition Care Teams Manager Of Training And Development Relationship Specialty Start Date End Date Isrrael Bolivar DO [address] [place], [place] [address] [address] PCP - General Family Medicine 11/24/10 documented as of this encounter
--- OUTSIDE RECORDS SUMMARY | 2024-05-05 22:02 | External Medical Summary ---
Author Name Unknown Address Unknown Organization : Laboratory Report Ordering Provider Test Date Status PASCALE CHANCE 12/26/2023 11:43:49 Final Observation Date Value Abnormality Reference (Units ) Status Glucose Point of Care 12/26/2023 11:43:49 172 Above high normal 70-120 (mg/dL) Final Performing Location
--- OUTSIDE RECORDS SUMMARY | 2024-05-05 22:02 | External Medical Summary ---
Author Name Unknown Address Unknown Organization : Laboratory Report Ordering Provider Test Date Status MIMA BARRERA 12/23/2023 22:31:34 Final Observation Date Value Abnormality Reference (Units ) Status Glucose Point of Care 12/23/2023 22:31:34 137 Above high normal 70-120 (mg/dL) Final Performing Location
--- OUTSIDE RECORDS SUMMARY | 2024-05-05 22:02 | External Medical Summary ---
Author Name Unknown Address Unknown Organization K1F:LABORATORY [facility] - [address] [place] [address] Laboratory Report Ordering Provider Test Date Status JAMES JETT 12/24/2023 04:44:00 Final Warfarin Therapy
INR: 2 .0-3.0 conventional anticoagulation
INR: 2.5- 3.5 high intensity anticoagulation Observation Date Value Abnormality Reference (Units ) Status PT 12/24/2023 04:44:00 15.4 Above high normal 11 .6-15.2 (seconds) Final INR 12/24/2023 04:44:00 1.2 0.8-1.2 Final Performing Location LABORATORY [facility] - [address] [place] [address]
--- OUTSIDE RECORDS SUMMARY | 2024-05-05 22:02 | External Medical Summary ---
Author Name Unknown Address Unknown Organization : Laboratory Report Ordering Provider Test Date Status PASCALE CHANCE 12/26/2023 07:32:16 Final Observation Date Value Abnormality Reference (Units ) Status Glucose Point of Care 12/26/2023 07:32:16 141 Above high normal 70-120 (mg/dL) Final Performing Location
--- OUTSIDE RECORDS SUMMARY | 2024-05-05 22:02 | External Medical Summary ---
Author Name Unknown Address Unknown Organization K1F:LABORATORY [facility] - [address] [place] [address] Laboratory Report Ordering Provider Test Date Status JAMES JETT 12/23/2023 05:06:00 Final Warfarin Therapy
INR: 2 .0-3.0 conventional anticoagulation
INR: 2.5- 3.5 high intensity anticoagulation Observation Date Value Abnormality Reference (Units ) Status PT 12/23/2023 05:06:00 14.6 11.6-15.2 (seconds) Final INR 12/23/2023 05:06:00 1.1 0.8-1.2 Final Performing Location LABORATORY [facility] - [address] [place] [address]
--- OUTSIDE RECORDS SUMMARY | 2024-05-05 22:02 | External Medical Summary ---
Author Name Unknown Address Unknown Organization : Laboratory Report Ordering Provider Test Date Status PASCALE CHANCE 12/25/2023 07:41:13 Final Observation Date Value Abnormality Reference (Units ) Status Glucose Point of Care 12/25/2023 07:41:13 155 Above high normal 70-120 (mg/dL) Final Performing Location
--- OUTSIDE RECORDS SUMMARY | 2024-05-05 22:02 | External Medical Summary ---
Author Name Unknown Address Unknown Organization : Laboratory Report Ordering Provider Test Date Status MIMA BARRERA 12/23/2023 12:10:43 Final Observation Date Value Abnormality Reference (Units ) Status Glucose Point of Care 12/23/2023 12:10:43 137 Above high normal 70-120 (mg/dL) Final Performing Location
--- OUTSIDE RECORDS SUMMARY | 2024-05-05 22:02 | External Medical Summary ---
Author Name Unknown Address Unknown Organization : Laboratory Report Ordering Provider Test Date Status MIMA BARRERA 12/24/2023 11:40:12 Final Observation Date Value Abnormality Reference (Units ) Status Glucose Point of Care 12/24/2023 11:40:12 197 Above high normal 70-120 (mg/dL) Final Performing Location
--- OUTSIDE RECORDS SUMMARY | 2024-05-05 22:02 | External Medical Summary ---
Author Name Unknown Address Unknown Organization K1F:LABORATORY [facility] - [address] [place] [address] Laboratory Report Ordering Provider Test Date Status JAMES JETT 12/26/2023 05:00:00 Final Warfarin Therapy
INR: 2 .0-3.0 conventional anticoagulation
INR: 2.5- 3.5 high intensity anticoagulation Observation Date Value Abnormality Reference (Units ) Status PT 12/26/2023 05:00:00 19.1 Above high normal 11 .6-15.2 (seconds) Final INR 12/26/2023 05:00:00 1.6 Above high normal 0. 8-1.2 Final Performing Location LABORATORY [facility] - [address] [place] [address]
--- OUTSIDE RECORDS SUMMARY | 2024-05-05 22:02 | External Medical Summary ---
Author Name Unknown Address Unknown Organization : Laboratory Report Ordering Provider Test Date Status MIMA BARRERA 12/23/2023 07:12:19 Final Observation Date Value Abnormality Reference (Units ) Status Glucose Point of Care 12/23/2023 07:12:19 170 Above high normal 70-120 (mg/dL) Final Performing Location
--- OUTSIDE RECORDS SUMMARY | 2024-05-05 22:03 | External Medical Summary ---
Author Name Unknown Address Unknown Organization K1F:LABORATORY [facility] - [address] [facility] [address] Laboratory Report Ordering Provider Test Date Status EMILIE SIGALA 12/19/2023 11:38:46 Final RAPID SURVEILLANCE Observation Date Value Abnormality Reference (Units ) Status SARS Coronavirus 2 12/19/2023 11:38:46 Negative N egative Final No SARS-CoV2 Coronavirus RNA detected by PCR (amplified probe).
This express test was developed and its performance characteristics determined by [facility]. It has not been cleared or approved [...] (RT-PCR) test, or a Centers for Disease Control-acceptable equivalent. The test is performed in a high complexity Clinical Laboratory Improvement Amendments-(CLIA) certified laboratory. The test is acceptable for SARS-CoV-2 diagnosis, surveillance, and travel within the [place] and to most countries. Please check with local testing authorities about requirements before travel.

The validation of bronchial specimens, tracheal aspirates, and sputum for this assay was developed and performance characteristics determined by [facility]. The validation of alternate specimen types has not been cleared or approved by the U.S. Food and Drug Administration (FDA). It has been determined that such clearance is not necessary. Influenza virus A RNA [Prese nce] in Specimen by QUEENIE with probe detection 12/19/2023 11:38:46 Negative Negative Final No Influenza A RNA detected by PCR (amplified probe) Influenza virus B RNA [Prese nce] in Specimen by QUEENIE with probe detection 12/19/2023 11:38:46 Negative Negative Final No Influenza B RNA detected by PCR (amplified probe) Respiratory syncytial virus RNA [Identifier] in Specimen by QUEENIE with probe detection 12/19/2023 11:38:46 Negative Negative Final No Respiratory Syncytial Vir us RNA detected by PCR (amplified probe) Performing Location [address]ATORY [address] [place] [address]
--- OUTSIDE RECORDS SUMMARY | 2024-05-05 22:03 | External Medical Summary ---
Author Name Unknown Address Unknown Organization K1F:LABORATORY [facility] - [address] [place] [address] Laboratory Report Ordering Provider Test Date Status JAMES JETT 12/20/2023 04:25:00 Final Observation Date Value Abnormality Reference (Units ) Status Phosphate 12/20/2023 04:25:00 4.1 2.5-4.8 (m g/dL) Final Performing Location LABORATORY [facility] - [address] [place] [address]
--- OUTSIDE RECORDS SUMMARY | 2024-05-05 22:03 | External Medical Summary ---
Author Name Unknown Address Unknown Organization K1F:LABORATORY [facility] - [address] [place] [address] Laboratory Report Ordering Provider Test Date Status EMILIE SIGALA 12/19/2023 10:36:00 Final Observation Date Value Abnormality Reference (Units ) Status CK 12/19/2023 10:36:00 33 26-192 (U/ L) Final Performing Location LABORATORY [facility] - [address] [place] [address]
--- OUTSIDE RECORDS SUMMARY | 2024-05-05 22:03 | External Medical Summary ---
Author Name Unknown Address Unknown Organization : Laboratory Report Ordering Provider Test Date Status TREVER COWART 12/20/2023 16:28:58 Final Observation Date Value Abnormality Reference (Units ) Status Glucose Point of Care 12/20/2023 16:28:58 105 70-120 (mg/dL) Final Performing Location
--- OUTSIDE RECORDS SUMMARY | 2024-05-05 22:03 | External Medical Summary ---
Author Name Unknown Address Unknown Organization K1F:LABORATORY [facility] - [address] [place] [address] Laboratory Report Ordering Provider Test Date Status TREVER COWART 12/20/2023 15:07:00 Final Observation Date Value Abnormality Reference (Units ) Status WBC, Total 12/20/2023 15:07:00 6.37 4.00-10.80 (K/uL) Final RBC 12/20/2023 15:07:00 4.98 3.85-5.15 (M/uL) Final Hemoglobin 12/20/2023 15:07:00 11.6 Below low normal 12.0-15.3 (g/dL) Final HCT 12/20/2023 15:07:00 39.1 36.0-45.2 (%) Final MCV 12/20/2023 15:07:00 78.5 81.5-97.5 (fL) Final MCH 12/20/2023 15:07:00 23.3 27.0-34.0 (pg) Final MCHC 12/20/2023 15:07:00 29.7 32.0-36.0 (g/dL) Final RDW 12/20/2023 15:07:00 20.1 11.5-15.5 (%) Final Platelets 12/20/2023 15:07:00 126 Below low normal 140-400 (K/uL) Final MPV 12/20/2023 15:07:00 10.9 6.6-11.1 (fL) Final Nucleated erythrocytes/100 leukocytes [Ratio] in Blood by Automated count 12/20/2023 15:07:00 0 <=0 (/100 WBCs) Final Performing Location LABORATORY [facility] - [address] [place] [address]
--- OUTSIDE RECORDS SUMMARY | 2024-05-05 22:03 | External Medical Summary ---
Author Name Unknown Address Unknown Organization K1F:LABORATORY [facility] - [address] [place] [address] Laboratory Report Ordering Provider Test Date Status JAMES JETT 12/21/2023 04:24:00 Final Warfarin Therapy
INR: 2 .0-3.0 conventional anticoagulation
INR: 2.5- 3.5 high intensity anticoagulation Observation Date Value Abnormality Reference (Units ) Status PT 12/21/2023 04:24:00 15.7 Above high normal 11 .6-15.2 (seconds) Final INR 12/21/2023 04:24:00 1.2 0.8-1.2 Final Performing Location LABORATORY [facility] - [address] [place] [address]
--- OUTSIDE RECORDS SUMMARY | 2024-05-05 22:03 | External Medical Summary ---
Author Name Unknown Address Unknown Organization : Laboratory Report Ordering Provider Test Date Status MIMA BARRERA 12/21/2023 10:51:24 Final Observation Date Value Abnormality Reference (Units ) Status Glucose Point of Care 12/21/2023 10:51:24 118 70-120 (mg/dL) Final Performing Location
--- OUTSIDE RECORDS SUMMARY | 2024-05-05 22:03 | External Medical Summary ---
Author Name Unknown Address Unknown Organization K1F:LABORATORY [facility] - [address] [place] [address] [address] [place] [address] Laboratory Report Ordering Provider Test Date Status JAMES JETT 12/19/2023 14:32:00 Final Observation Date Value Abnormality Reference (Units ) Status WBC, Total 12/19/2023 14:32:00 9.61 4.00-10.80 (K/uL) Final RBC 12/19/2023 14:32:00 5.02 3.85-5.15 (M/uL) Final Hemoglobin 12/19/2023 14:32:00 11.7 Below low normal 12.0-15.3 (g/dL) Final HCT 12/19/2023 14:32:00 38.1 36.0-45.2 (%) Final MCV 12/19/2023 14:32:00 75.9 81.5-97.5 (fL) Final MCH 12/19/2023 14:32:00 23.3 27.0-34.0 (pg) Final MCHC 12/19/2023 14:32:00 30.7 32.0-36.0 (g/dL) Final RDW 12/19/2023 14:32:00 20.1 11.5-15.5 (%) Final Platelets 12/19/2023 14:32:00 153 140-400 (K/uL) Final MPV 12/19/2023 14:32:00 10.8 6.6-11.1 (fL) Final Nucleated erythrocytes/100 leukocytes [Ratio] in Blood by Automated count 12/19/2023 14:32:00 0 <=0 (/100 WBCs) Final Performing Location LABORATORY [facility] - [address] [place] [address]
--- OUTSIDE RECORDS SUMMARY | 2024-05-05 22:03 | External Medical Summary ---
Author Name Unknown Address Unknown Organization : Laboratory Report Ordering Provider Test Date Status JAMES JETT 12/19/2023 21:26:50 Final Observation Date Value Abnormality Reference (Units ) Status Glucose Point of Care 12/19/2023 21:26:50 117 70-120 (mg/dL) Final Performing Location
--- OUTSIDE RECORDS SUMMARY | 2024-05-05 22:03 | External Medical Summary ---
Author Name Unknown Address Unknown Organization K1F:LABORATORY [facility] - [address] [place] [address] Laboratory Report Ordering Provider Test Date Status JAMES JETT 12/19/2023 21:20:00 Final Anticoagulation may affect t esting. Refer to [facility] Test Catalog for a list of effects. Observation Date Value Abnormality Reference (Units ) Status aPTT panel - Platelet poor plasma 12/19/2023 21:20:00 59 Above high normal 21-38 (seconds) Final Performing Location LABORATORY [facility] - [address] [place] [address]
--- OUTSIDE RECORDS SUMMARY | 2024-05-05 22:03 | External Medical Summary ---
Author Name Unknown Address Unknown Organization K1F:LABORATORY [facility] - [address] [place] [address] Laboratory Report Ordering Provider Test Date Status JAMES JETT 12/22/2023 04:24:00 Final Warfarin Therapy
INR: 2 .0-3.0 conventional anticoagulation
INR: 2.5- 3.5 high intensity anticoagulation Observation Date Value Abnormality Reference (Units ) Status PT 12/22/2023 04:24:00 15.0 11.6-15.2 (seconds) Final INR 12/22/2023 04:24:00 1.2 0.8-1.2 Final Performing Location LABORATORY [facility] - [address] [place] [address]
--- OUTSIDE RECORDS SUMMARY | 2024-05-05 22:03 | External Medical Summary ---
Author Name Unknown Address Unknown Organization K1F:LABORATORY [facility] - [address] [place] [address] Laboratory Report Ordering Provider Test Date Status TREVER COWART 12/20/2023 15:07:00 Final Anticoagulation may affect t esting. Refer to [facility] Test Catalog for a list of effects. Observation Date Value Abnormality Reference (Units ) Status aPTT panel - Platelet poor plasma 12/20/2023 15:07:00 35 21-38 (seconds) Final Performing Location LABORATORY [facility] - [address] [place] [address]
--- OUTSIDE RECORDS SUMMARY | 2024-05-05 22:03 | External Medical Summary ---
Author Name Unknown Address Unknown Organization K1F:LABORATORY [facility] - [address] [place] [address] Laboratory Report Ordering Provider Test Date Status YANELY NOLASCO 12/21/2023 04:24:00 Final Observation Date Value Abnormality Reference (Units ) Status BUN 12/21/2023 04:24:00 16 6-20 (mg/dL) Final Creatinine 12/21/2023 04:24:00 0.7 0.5-1.0 (mg/dL) Final Glomerular filtration rate/1.73 sq M.predicted [Volume Rate/Area] in Serum, Plasma or Blood by Creatinine-based formula (CKD-EPI) 12/21/2023 04:24:00 83 >=60 (mL/min) Final eGFR is calculated based on the CKD-EPI 2020 equation Sodium 12/21/2023 04:24:00 140 135-146 (m mol/L) Final Potassium 12/21/2023 04:24:00 4.1 3.5-5.1 (m mol/L) Final Cl 12/21/2023 04:24:00 99 98-107 (mm ol/L) Final CO2 12/21/2023 04:24:00 37 Above high normal 22 -32 (mmol/L) Final Anion gap 12/21/2023 04:24:00 4 Below low normal 7-1 5 (mmol/L) Final Glucose 12/21/2023 04:24:00 142 Above high normal 70 -120 (mg/dL) Final Calcium 12/21/2023 04:24:00 8.8 8.4-10.2 ( mg/dL) Final Performing Location LABORATORY [facility] - [address] [address] [place] [place] [address]
--- OUTSIDE RECORDS SUMMARY | 2024-05-05 22:03 | External Medical Summary ---
Author Name Unknown Address Unknown Organization : Laboratory Report Ordering Provider Test Date Status MIMA BARRERA 12/20/2023 21:24:11 Final Observation Date Value Abnormality Reference (Units ) Status Glucose Point of Care 12/20/2023 21:24:11 119 70-120 (mg/dL) Final Performing Location
--- OUTSIDE RECORDS SUMMARY | 2024-05-05 22:03 | External Medical Summary ---
Author Name Unknown Address Unknown Organization K1F:LABORATORY [facility] - [address] [place] [address] [address] [place] [address] Laboratory Report Ordering Provider Test Date Status JAMES JETT 12/20/2023 04:25:00 Final Observation Date Value Abnormality Reference (Units ) Status WBC, Total 12/20/2023 04:25:00 7.97 4.00-10.80 (K/uL) Final RBC 12/20/2023 04:25:00 5.07 3.85-5.15 (M/uL) Final Hemoglobin 12/20/2023 04:25:00 12.0 12.0-15.3 (g/dL) Final HCT 12/20/2023 04:25:00 39.5 36.0-45.2 (%) Final MCV 12/20/2023 04:25:00 77.9 81.5-97.5 (fL) Final MCH 12/20/2023 04:25:00 23.7 27.0-34.0 (pg) Final MCHC 12/20/2023 04:25:00 30.4 32.0-36.0 (g/dL) Final RDW 12/20/2023 04:25:00 20.5 11.5-15.5 (%) Final Platelets 12/20/2023 04:25:00 140 140-400 (K/uL) Final MPV 12/20/2023 04:25:00 10.9 6.6-11.1 (fL) Final Nucleated erythrocytes/100 leukocytes [Ratio] in Blood by Automated count 12/20/2023 04:25:00 0 <=0 (/100 WBCs) Final Performing Location LABORATORY [facility] - [address] [place] [address]
--- OUTSIDE RECORDS SUMMARY | 2024-05-05 22:03 | External Medical Summary ---
Author Name Unknown Address Unknown Organization K1F:LABORATORY [facility] - [address] [place] [address] Laboratory Report Ordering Provider Test Date Status JAMES JETT 12/19/2023 14:32:00 Final Anticoagulation may affect t esting. Refer to [facility] Test Catalog for a list of effects. Observation Date Value Abnormality Reference (Units ) Status aPTT panel - Platelet poor plasma 12/19/2023 14:32:00 32 21-38 (seconds) Final Performing Location LABORATORY [facility] - [address] [place] [address]
--- OUTSIDE RECORDS SUMMARY | 2024-05-05 22:03 | External Medical Summary ---
Author Name Unknown Address Unknown Organization K1F:LABORATORY [facility] - [address] [facility] [place] [address] Laboratory Report Ordering Provider Test Date Status EMILIE SIGALA 12/19/2023 10:36:00 Final Observation Date Value Abnormality Reference (Units ) Status BUN 12/19/2023 10:36:00 25 Above high normal 6-20 (mg/dL) Final Creatinine 12/19/2023 10:36:00 1.1 Above high normal 0.5-1.0 (mg/dL) Final Glomerular filtration rate/1.73 sq M.predicted [Volume Rate/Area] in Serum, Plasma or Blood by Creatinine-based formula (CKD-EPI) 12/19/2023 10:36:00 52 Below low normal >=60 (mL/min) Final eGFR is calculated based on the CKD-EPI 2020 equation Sodium 12/19/2023 10:36:00 145 135-146 (m mol/L) Final Potassium 12/19/2023 10:36:00 3.3 Below low normal 3.5 -5.1 (mmol/L) Final Cl 12/19/2023 10:36:00 100 98-107 (mm ol/L) Final CO2 12/19/2023 10:36:00 34 Above high normal 22 -32 (mmol/L) Final Anion gap 12/19/2023 10:36:00 11 7-15 (mmol /L) Final Glucose 12/19/2023 10:36:00 127 Above high normal 70 -120 (mg/dL) Final Albumin 12/19/2023 10:36:00 4.2 3.8-5.0 (g /dL) Final AST (Aspartate aminotransferase) 12/19/2023 10:36:00 20 10-35 (U/L) Fin al Alk Phos 12/19/2023 10:36:00 71 35-130 (U/ L) Final Bilirubin, Total 12/19/2023 10:36:00 0.5 <=1 .2 (mg/dL) Final Calcium 12/19/2023 10:36:00 9.6 8.4-10.2 ( mg/dL) Final Protein 12/19/2023 10:36:00 6.7 6.0-8.3 (g /dL) Final ALT (Alanine aminotransferase) 12/19/2023 10:36:00 16 10-35 (U/L) Kishan gao [facility] Location LABORATORY [facility] - [address] [place], [place] [address] [place] [address]
--- OUTSIDE RECORDS SUMMARY | 2024-05-05 22:03 | External Medical Summary ---
Author Name Unknown Address Unknown Organization K1F:LABORATORY [facility] - [address] [place] [address] Laboratory Report Ordering Provider Test Date Status MIMA BARRERA 12/21/2023 04:24:00 Final Get stat/now aPTT [address] each heparin dose adjustment

Anticoagulation may affect testing. Refer to [email or web address] Test Catalog for a list of effects. Observation Date Value Abnormality Reference (Units ) Status aPTT panel - Platelet poor plasma 12/21/2023 04:24:00 38 21-38 (seconds) Final Performing Location LABORATORY [facility] - [address] [place] [address]
--- OUTSIDE RECORDS SUMMARY | 2024-05-05 22:03 | External Medical Summary ---
Author Name Unknown Address Unknown Organization K1F:LABORATORY [facility] - [address] [place] [address] Laboratory Report Ordering Provider Test Date Status EMILIE SIGALA 12/19/2023 10:36:00 Final Observation Date Value Abnormality Reference (Units ) Status Lactic Acid, Whole Blood 12/19/2023 10:36:00 2.1 Above high normal 0.4-2.0 (mmol/L) Final Performing Location LABORATORY [facility] - [address] [place] [address]
--- OUTSIDE RECORDS SUMMARY | 2024-05-05 22:03 | External Medical Summary ---
Author Name Unknown Address Unknown Organization K1F:LABORATORY [facility] - [address] [facility] [place] [address] Laboratory Report Ordering Provider Test Date Status EMILIE SIGALA 12/19/2023 11:06:41 Final Observation Date Value Abnormality Reference (Units ) Status Color of Urine by Auto 12/19/2023 11:06:41 Yellow Light Yellow, Yellow, Dark Yellow Final Clarity, Urine 12/19/2023 11:06:41 Clear Clear Final Glucose [Mass/volume] in Urine by Automated test strip 12/19/2023 11:06:41 500 Abnormal Negative (mg/dL) Final Bilirubin.total [Presence] in Urine by Automated test strip 12/19/2023 11:06:41 Negative Negative Final Ketones [Mass/volume] in Urine by Automated test strip 12/19/2023 11:06:41 Negative Negative (mg/dL) Final Specific gravity, Urine 12/19/2023 11:06:41 1.018 1.003-1.030 Final Hemoglobin [Presence] in Urine by Automated test strip 12/19/2023 11:06:41 Negative Negative Final pH, Urine 12/19/2023 11:06:41 6.0 5.0-7.5 (Units) Final Protein [Mass/volume] in Urine by Automated test strip 12/19/2023 11:06:41 Negative Negative (mg/dL) Final Urobilinogen [Mass/volume] in Urine by Automated test strip 12/19/2023 11:06:41 0.2 0.2, 1.0 (mg/dL) Final Nitrite [Presence] in Urine by Automated test strip 12/19/2023 11:06:41 Negative Negative Final Leukocyte esterase [Presence] in Urine by Automated test strip 12/19/2023 11:06:41 Negative Negative Final Annotation Comment 12/19/2023 11:06:41 Final Screen negative - Microscopi c not performed. Performing Location LABORATORY [facility] - [address] [place] [address]
--- OUTSIDE RECORDS SUMMARY | 2024-05-05 22:03 | External Medical Summary ---
Author Name Unknown Address Unknown Organization K1F:LABORATORY [facility] - [address] [place] [address] Laboratory Report Ordering Provider Test Date Status EMILIE SIGALA 12/19/2023 10:36:00 Final Observation Date Value Abnormality Reference (Units ) Status ABO 12/19/2023 10:36:00 A Final RH 12/19/2023 10:36:00 Negative Final RED BLOOD CELL ANTIBODY SCREEN 12/19/2023 10:36:00 Negative Final SPECIMEN EXPIRATION DATE 12/19/2023 10:36:00 12/22/2023 23:59 Final Performing Location LABORATORY [facility] - [address] [place] [address]
--- OUTSIDE RECORDS SUMMARY | 2024-05-05 22:03 | External Medical Summary ---
Author Name Unknown Address Unknown Organization K1F:LABORATORY [facility] - [address] [place] [address] Laboratory Report Ordering Provider Test Date Status TREVER COWART 12/20/2023 21:15:00 Final Anticoagulation may affect t esting. Refer to [facility] Test Catalog for a list of effects. Observation Date Value Abnormality Reference (Units ) Status aPTT panel - Platelet poor plasma 12/20/2023 21:15:00 79 Above high normal 21-38 (seconds) Final Performing Location LABORATORY [facility] - [address] [place] [address]
--- OUTSIDE RECORDS SUMMARY | 2024-05-05 22:03 | External Medical Summary ---
Author Name Unknown Address Unknown Organization K1F:LABORATORY [facility] - [address] [facility] [place] [address] Laboratory Report Ordering Provider Test Date Status EMILIE SIGALA 12/19/2023 10:36:00 Final Observation Date Value Abnormality Reference (Units ) Status SYNC LEUKOCYTES IN BLOOD BY AUTOMATED COUNT 12/19/2023 10:36:00 8.14 4.00-10.80 (K/uL) Final Segs 12/19/2023 10:36:00 57.1 40.0-75.0 (%) Final Lymphs % 12/19/2023 10:36:00 29.1 18.0-42.0 (%) Final Monos 12/19/2023 10:36:00 10.7 1.0-11.0 (%) Final Eosinophils 12/19/2023 10:36:00 2.8 0.0-6.0 (%) Final Basos 12/19/2023 10:36:00 0.1 0.0-2.0 (%) Final Immature Granulocyte, Percent 12/19/2023 10:36:00 0.2 0.0-2.0 (%) Final Absolute Segs 12/19/2023 10:36:00 4.64 1.80-7.70 (K/uL) Final Lymphs, absolute 12/19/2023 10:36:00 2.37 1.00-4.80 (K/ul) Final Monos, Abs 12/19/2023 10:36:00 0.87 0.00-1.10 (K/uL) Final Eos, Abs 12/19/2023 10:36:00 0.23 0.00-0.70 (K/uL) Final Basos, Abs 12/19/2023 10:36:00 0.01 0.00-0.20 (K/uL) Final Immature Granulocytes, Number 12/19/2023 10:36:00 0.02 0.00-0.20 (K/uL) Final Performing Location LABORATORY [facility] - [facility] [place] [facility] [place] [address] [place] [address]
--- OUTSIDE RECORDS SUMMARY | 2024-05-05 22:03 | External Medical Summary ---
Author Name Unknown Address Unknown Organization K1F:LABORATORY [facility] - [address] [place] [address] Laboratory Report Ordering Provider Test Date Status EMILIE SIGALA 12/19/2023 10:36:00 Final Warfarin Therapy
INR: 2 .0-3.0 conventional anticoagulation
INR: 2.5- 3.5 high intensity anticoagulation Observation Date Value Abnormality Reference (Units ) Status PT 12/19/2023 10:36:00 15.5 Above high normal 11 .6-15.2 (seconds) Final INR 12/19/2023 10:36:00 1.2 0.8-1.2 Final Performing Location LABORATORY [facility] - [address] [place] [address]
--- OUTSIDE RECORDS SUMMARY | 2024-05-05 22:03 | External Medical Summary ---
Author Name Unknown Address Unknown Organization K1F:LABORATORY [facility] - [address] [place] [address] Laboratory Report Ordering Provider Test Date Status JAMES JETT 12/19/2023 14:32:00 Final Warfarin Therapy
INR: 2 .0-3.0 conventional anticoagulation
INR: 2.5- 3.5 high intensity anticoagulation Observation Date Value Abnormality Reference (Units ) Status PT 12/19/2023 14:32:00 16.1 Above high normal 11 .6-15.2 (seconds) Final INR 12/19/2023 14:32:00 1.3 Above high normal 0. 8-1.2 Final Performing Location LABORATORY [facility] - [address] [place] [address]
--- OUTSIDE RECORDS SUMMARY | 2024-05-05 22:03 | External Medical Summary ---
Author Name Unknown Address Unknown Organization K1F:LABORATORY [facility] - [address] [place] [address] Laboratory Report Ordering Provider Test Date Status YANELY NOLASCO 12/21/2023 04:24:00 Final Observation Date Value Abnormality Reference (Units ) Status WBC, Total 12/21/2023 04:24:00 6.41 4.00-10.80 (K/uL) Final RBC 12/21/2023 04:24:00 4.70 3.85-5.15 (M/uL) Final Hemoglobin 12/21/2023 04:24:00 11.1 Below low normal 12.0-15.3 (g/dL) Final HCT 12/21/2023 04:24:00 36.4 36.0-45.2 (%) Final MCV 12/21/2023 04:24:00 77.4 81.5-97.5 (fL) Final MCH 12/21/2023 04:24:00 23.6 27.0-34.0 (pg) Final MCHC 12/21/2023 04:24:00 30.5 32.0-36.0 (g/dL) Final RDW 12/21/2023 04:24:00 19.7 11.5-15.5 (%) Final Platelets 12/21/2023 04:24:00 123 Below low normal 140-400 (K/uL) Final MPV 12/21/2023 04:24:00 10.6 6.6-11.1 (fL) Final Nucleated erythrocytes/100 leukocytes [Ratio] in Blood by Automated count 12/21/2023 04:24:00 0 <=0 (/100 WBCs) Final Performing Location LABORATORY [facility] - [address] [place] [address]
--- OUTSIDE RECORDS SUMMARY | 2024-05-05 22:03 | External Medical Summary ---
Author Name Unknown Address Unknown Organization K1F:LABORATORY [facility] - [address] [place] [address] Laboratory Report Ordering Provider Test Date Status EMILIE SIGALA 12/19/2023 10:36:00 Final Observation Date Value Abnormality Reference (Units ) Status Ovalocytes [Presence] in Blood by Light microscopy 12/19/2023 10:36:00 Moderate Abnormal None Seen Final Performing Location LABORATORY [facility] - [address] [place] [address]
--- OUTSIDE RECORDS SUMMARY | 2024-05-05 22:03 | External Medical Summary ---
Author Name Unknown Address Unknown Organization : Laboratory Report Ordering Provider Test Date Status JAMES JETT 12/19/2023 16:59:39 Final Observation Date Value Abnormality Reference (Units ) Status Glucose Point of Care 12/19/2023 16:59:39 160 Above high normal 70-120 (mg/dL) Final Performing Location
--- OUTSIDE RECORDS SUMMARY | 2024-05-05 22:03 | External Medical Summary ---
Author Name Unknown Address Unknown Organization K1F:LABORATORY [facility] - [address] [place] [address] [address] [place] [address] Laboratory Report Ordering Provider Test Date Status EMILIE SIGALA 12/19/2023 10:36:00 Final Observation Date Value Abnormality Reference (Units ) Status WBC, Total 12/19/2023 10:36:00 8.14 4.00-10.80 (K/uL) Final RBC 12/19/2023 10:36:00 5.35 3.85-5.15 (M/uL) Final Hemoglobin 12/19/2023 10:36:00 12.4 12.0-15.3 (g/dL) Final HCT 12/19/2023 10:36:00 40.5 36.0-45.2 (%) Final MCV 12/19/2023 10:36:00 75.7 81.5-97.5 (fL) Final MCH 12/19/2023 10:36:00 23.2 27.0-34.0 (pg) Final MCHC 12/19/2023 10:36:00 30.6 32.0-36.0 (g/dL) Final RDW 12/19/2023 10:36:00 20.5 11.5-15.5 (%) Final Platelets 12/19/2023 10:36:00 178 140-400 (K/uL) Final MPV 12/19/2023 10:36:00 11.4 6.6-11.1 (fL) Final Nucleated erythrocytes/100 leukocytes [Ratio] in Blood by Automated count 12/19/2023 10:36:00 0 <=0 (/100 WBCs) Final Performing Location LABORATORY [facility] - [address] [facility] [place] [address]
--- OUTSIDE RECORDS SUMMARY | 2024-05-05 22:03 | External Medical Summary ---
Author Name Unknown Address Unknown Organization K1F:LABORATORY [facility] - [address] [facility] [place] [address] Laboratory Report Ordering Provider Test Date Status ANÍBAL SIGALAJOSE 12/19/2023 11:06:41 Final Cutoff Concentrations:
Drug Level
Amphetamines 500 ng/mL
Benzodiazepines 100 ng/mL
Cannabinoids 50 ng/mL
Cocaine Metabolite 150 ng/mL
Fentanyl 1 ng/mL
Hydrocodone / Hydromorphone 300 ng/mL
Methadone Metabolite 100 ng/mL
Morphine / Codeine 300 ng/mL
Oxycodone / Oxymorphone 100 ng/mL

Screening results are presumptive and can only be used for medical purposes. Positive screening results are reflexed to confirmatory testing. Observation Date Value Abnormality Reference (Units ) Status Amphetamines, Urine screen 12/19/2023 11:06:41 Negative Negative Final Benzodiazepines, Urine screen 12/19/2023 11:06:41 Negative Negative Final Cannabinoids, Urine screen 12/19/2023 11:06:41 Negative Negative Final Cocaine Metabolite, Urine screen 12/19/2023 11:06:41 Negative Negative Final fentaNYL [Presence] in Urine by Screen method 12/19/2023 11:06:41 Negative Negative Final HYDROcodone [Presence] in Urine by Screen method 12/19/2023 11:06:41 Negative Negative Final 6-Ourivtgxwh-3,5-Dimeth yl-3,3-Diphenylpyrrolid ine (EDDP) [Presence] in Urine 12/19/2023 11:06:41 Negative Negative Final Opiates, Urine screen 12/19/2023 11:06:41 Negative Negative Final oxyCODONE [Presence] in Urine by Screen method 12/19/2023 11:06:41 Negative Negative Final Performing Location LABORATORY [facility] - [address] [place] [address]
--- OUTSIDE RECORDS SUMMARY | 2024-05-05 22:03 | External Medical Summary ---
Author Name Unknown Address Unknown Organization : Laboratory Report Ordering Provider Test Date Status MIMA BARRERA 12/21/2023 21:53:57 Final Observation Date Value Abnormality Reference (Units ) Status Glucose Point of Care 12/21/2023 21:53:57 219 Above high normal 70-120 (mg/dL) Final Performing Location
--- OUTSIDE RECORDS SUMMARY | 2024-05-05 22:03 | External Medical Summary | Summary of Care ---
Author Name Unknown Organization [facility] Address [address] [place] [place] [address] Phone [phone] Care Team Providers Care Cooking Instructor Name Role Phone Isrrael Bolivar Primary Care Provider [phone] Reason for Visit * Reason Comments Hospital Follow-Up Rm # 3 Encounter Details Date Type Department Care Team ([facility] st Contact Info) Description 11/21/2023 1:30 PM EST Office Visit Cardiology Ra[facility] Cash [address] [place] [address] Sari Oliver CRNP [address] [place] [address] Hospital discharge follow-up*; Chronic heart failure with preserved ejection fraction (HFpEF) (HCC); Takotsubo cardiomyopathy; Moderate tricuspid regurgitation; Ventricular fibrillation (HCC); ICD (implantable cardioverter-defibril lator), single, in situ; Persistent atrial fibrillation (HCC); Non-occlusive coronary artery disease Allergies No known active allergiesdocumented as of this encounter (statuses as of 11/21/2023) Medications Medication Sig Dispensed Refills Start Date [...] chest pain 30 Tab 3 12/08/2010 Active Additional Information Patient not taking.Informant: Child, Reported on 11/10/2023 atorvaSTATin (LIPITOR) 40 MG Tablet Take 1 [...] 08/14/2022 Active Apixaban 5 MG Oral Tablet (Eliquis)Indicatio [...] mouth in the morning. 0 09/05/2023 Active glipiZIDE ER 2.5 MG Oral Tablet Extended Release 24 Hour (glipiZIDE XL) TAKE TWO TABLETS BY MOUTH IN THE MORNING AND TAKE ONE TABLET IN THE EVENING 0 09/05/2023 Active Torsemide 20 MG Oral Tablet (Demadex)Indicatio ns:HTN, goal below 140/90,Dyslipidemi a, goal LDL below 70,Permanent atrial fibrillation (HCC),Chronic diastolic congestive heart failure (HCC),ICD (implantable cardioverter-defib rillator), single, in situ Take 2 Tablets by mouth in the morning and 2 Tablets in the evening. 60 Tablet 0 11/12/2023 Active documented as of this encounter (statuses as of 11/21/2023) Active Problems Problem Noted Date Diagnosed Date Leg edema 11/10/2023 PAD (peripheral artery disease) 11/10/2023 Elevated transaminase level 11/10/2023 Coronary artery disease invo lving wainwright coronary artery of wainwright heart without angina pectoris 11/10/2023 Abnormal nuclear [...] as of this encounter (statuses as of 11/21/2023) Resolved Problems Problem Noted Date Diagnosed Date Resolved Date Cardiac/pericardial tamponade 11/02/2022 11/05/2022 Hypoxemia 11/24/2018 11/27/2018 Cardiac arrest 11/24/2010 07/14/2011 Ventricular fibrillation 11/24/2010 Acute non Q wave myocardial infarction 11/24/2010 07/14/2011 HTN, goal below 130/80 11/24/201005/11 Overview: Per HTN Protocol #27. documented as of this encounter (statuses as of 11/21/2023) Immunizations Name Administration Dates Next Due Pneumococcal [...] Sign Reading Time Taken Comments Blood Pressure 100/62 11/21/2023 1:16 PM EST Pulse 84 11/21/2023 1:16 PM EST Temperature - - Respiratory Rate - - Oxygen Saturation - - Inhaled Oxygen Concentration - - Weight 60.8 kg (134 lb) 11/21/2023 1:16 PM EST Height 167.6 cm (5' 6") 11/21/2023 1:16 PM EST Body Mass Index 21.63 11/21/2023 1:16 PM EST documented in this encounter Functional Status Functional Status Response Date of Assess ment Are you deaf or do you have serious difficulty h earing? No 11/10/2023 Are you blind or do you have serious difficulty seeing, even when wearing glasses? No 11/10/2023 Do you have serious difficul ty walking or climbing stairs? (5 years old or older) No 11/10/2023 Do you have difficulty dress ing or bathing? (5 years old or older) No 11/10/2023 Because of a physical, menta l, or emotional condition, do you have difficulty doing errands alone such as visiting a doctor s office or shopping? (15 years old or older) Yes 11/10/19 Cognitive Status Response Date of Assessm ent Because of a physical, menta l, or emotional condition, do you have serious difficulty concentrating, remembering, or making decisions? (5 years old or older) No 11/10/2023 documented as of this encounter Progress Notes * Sari Oliver CRNP - 11/21/2023 1:30 PM EST 11/21/2023 Cardiology Follow Up Primary 3D Specialist: Formerly Dr. Quintero Primary EP: Dr. Lipscomb Cardiac Problems: Chronic HFpEF Hx Takotsubo Cardiomyopathy 2010 complicated by VFib arrest. Moderate Tricuspid Regurgitation Single-Chamber ICD 11/2010 -generator change 03/18/2020. Non-obstructive CAD 11/01/22 -STEMI. 11/01/22. Hypertension Dyslipidemia Permanent AFIB Lymphedema PVD -s/p LLE Embolectomy 12/23/22 Pericardial Effusion s/p thoracentesis 07/2023 s/p pericardiocentesis 11/02/22 HPI: Lillian Feliciano is a 87 year old female who in November 2010 sustained a ventricular fibrillation cardiac arrest. She had an echo that was suggestive of multivessel coronary artery disease vs stress-induced cardiomyopathy. She underwent cardiac catheterization and had no significant coronary artery disease. She has a single-chamber ICD. Unfortunately she sustained STEMI 10/2022, cardiac catheterization without culprit lesion. Last evaluated in our office on 10/20/2023 with Nel Rajan PA-C. Chest pain reported at that time. Her nuclear stress test suggestive of ischemia of the distal to mid anterior wall and basal inferolateral inferior wall Moderate area of area of moderate severe intensity reversible defect of distal to mid anterior and apex. Basal inferolateral and inferior wall. Admitted to [facility] 11/10-11/12/23 with increased shortness of breath. Patient declines cardiac catheterization. Daughter and patient preferred medical management. Discharged on Torsemide 40 mg BID. Weight at discharge was 127 lb. Here for hospital discharge follow up. Accompanied by her daughter. Weight is up 7 lb. States the hospital food sucked. She has been eating more at home. Occasionally eats frozen TV dinners. Patient denies swelling, shortness of breath, PND, and abdominal bloating. Reports compliance with recommended fluid and low sodium restrictions. Obtains daily weights at home. Lives in [facility]. Utilized a wheelchair today. Once in a while will use a cane.Grand daughter manages medications. REVIEW OF SYSTEMS: See HPI for pertinent positives. All others negative other than those noted in the HPI. CONSTITUTIONAL: No change in weight, No weakness, No fatigue and No fevers, No sweats or chills. PULMONARY: No cough, sputum, or hemoptysis, No wheezing, No shortness or breath and No recent change in breathing. CARDIOVASCULAR: No chest pain, + chronic dyspnea on exertion, No edema, No palpitations and No syncope. GASTROINTESTINAL: No [...] Current Outpatient Medications Medication Sig Dispense Refill atorvaSTATin (LIPITOR) 40 MG Tablet Take 1 Tablet by mouth every evening. ipratropium-albuterol (COMBIVENT RESPIMAT) 20-100 MCG/ACT Inhaler Inhale 1 Puff by mouth 4 times a day. 1 Inhaler 0 Jardiance 25 MG Oral Tablet Take [...] in the morning and 1 Capsule beforebedtime. Alendronate Sodium 70 MG Oral Tablet (Fosamax) Take 1 Tablet by mouth once a week. Apixaban 5 MG Oral Tablet (Eliquis) TAKE 1 TABLET BY MOUTH 2 times daily 180 Tablet 3 Aspirin 81 MG Oral Tablet Chewable Take [...] 1 Tablet by mouth in the morning. glipiZIDE ER 2.5 MG Oral Tablet Extended Release 24 Hour (glipiZIDE XL) TAKE TWO TABLETS BY MOUTH IN THE MORNING AND TAKE ONE TABLET IN THE EVENING Torsemide 20 MG Oral Tablet (Demadex) Take 2 Tablets by mouth in the morning and 2 Tablets in the evening. 60 Tablet 0 NITROGLYCERIN 0.4 MG SL SUBL 1 Tab Sublingual Every 5 minutes as needed for chest pain (Patient nottaking: Reported on 11/10/2023) 30 Tab 3 Silver sulfADIAZINE 1 % External Cream Apply topically to affected area daily . Apply to BLE Acetaminophen 325 MG Oral Tablet (Tylenol) Take by mouth 3 Tablets in the morning AND 3 Tablets at noon AND 3 Tablets before bedtime. 30 Tablet 0 TRUEplus Lancets 33G True Metrix Blood Glucose Test In Vitro Strip True Metrix Meter w/Device Kit Triamcinolone Acetonide 0.1 % External Cream (Aristocort) Apply to lower legs twice daily as neededfor dry skin 80 g 2 No current facility-administered medications for this visit. Past Medical History: Diagnosis Date A-fib ([facility]) Asthma, mild persistent Critical limb ischemia of left lower extremity with autologous bypass graft ([facility]) 12/24/2022 DM type 2, goal A1c below 7 Hyperlipidemia Hypertension ICD (implantable cardioverter-defibrillator) in place Myocardial infarction acute ([facility]) 11/24/2010 Ventricular fibrillation arrest, Possible Takotsubo syndrome Nonischemic cardiomyopathy ([facility]) Takotsubo cardiomyopathy Family History Problem Relation Age of Onset [...] heat. No air conditioning. OBJECTIVE/PHYSICAL EXAMINATION: BP 100/62 (BP Site: Right Arm, BP Position: Sitting, BP Cuff Size: Regular) | Pulse 84 | Ht 1.676 m(5' 6") | Wt 60.8 kg (134 lb) | BMI 21.63 kg/m | BSA 1.68 m Wt Readings from Last 3 Encounters: 11/21/23 60.8 kg (134 lb) 11/12/23 57.7 kg (127 lb 4.8 oz) 10/20/23 61.2 kg (135 lb) General: No acute distress. A+Ox3. HEENT: Normocephalic. Atraumatic. PERRL. EOMI. Conjunctiva and sclera clear. NECK: No carotid bruits. No JVD. Carotid upstrokes are brisk. Heart: Irregularly irregular. S1 and S2 noted. No murmur. No rubs or gallops. PMI non displaced. Lungs: Clear to auscultation. No wheezes.No rhonchi. No rales. Abdomen: Normal bowel sounds. Soft. Nontender. No masses or organomegaly. No abdominal bruits. Extremities: B/L LE red, lymphedema,+1 LLE edema Pulses: radial=2/4, posterior tibial=2/4, dorsalis pedis = 2/4. NEURO: No focal deficits. PSYCH: Appropriate affect and insight. DATA Labs & Imaging Reviewed Below: Echo 11/10/2023 Calculated LV ejection Fraction = 54% (three [...] from 12/2022 there is no significant change. Nuclear Stress Test 10/28/2023 This is an abnormal study. Lexiscan nuclear [...] inferior Raw images show chest wall attenuation. EKG 10/14/2023 AFIB 66bpm Echo 12/24/2022 The qualitative LV ejection fraction is 55-59% (normal). The right ventricular cavity is mildly dilated. The right ventricular systolic function is normal as assessed by tricuspid annular plane systolic excursion . The aortic valve is mildly calcified. There is a calcified nodule on Aortic valve cup which was present on prior study as well. There is mild mitral annular calcification. Device Clinic 09/08/2023 - Normal functioning single chamber ICD - Adequate battery - 95% AFIB burden; 0 shocks Cardiac Catheterization 11/02/2022 Large pericardial effusion s/p successful echo and fluoroscopy guided pericardiocentesis via apicalapproach. * 570 mL of Sanguineous/hemorrhagic fluid removed * Pericardial drain sutured in place * At the end of procedure effusion resolved and no tamponade present Cardiac Catheterization 11/01/2022 Non-obstructive CAD. No culprit for EKG presentation Ostial LCx has 50% stenosis and apical LAD has 60% stenosis Echo 02/01/2022 Qualitative LV ejection Fraction = 50% (low normal). The left atrium is severely enlarged. The right ventricular cavity is moderately dilated. The right ventricular systolic function is qualitatively normal. Mild tricuspid regurgitation is present. Echo 02/04/2020 The qualitative LV ejection fraction is 50-54% (normal). The left ventricular cavity size is normal. The LV wall thickness is mildly increased (concentric). There is no left ventricular mural thrombus. Subtle RCA and/or left circumflex regional wall motion abnormality. The left atrium is severely enlarged. EKG 02/04/2020 Atrial fib with intermittent ventricular paced rhythm, 65 beats per minute Interseptal infarct, ST and T-wave abnormality ASSESSMENT/PLAN: 88 year old year old female 1. Hospital discharge follow-up 2. Chronic heart failure with preserved ejection fraction (HFpEF) (HCC) 3. Takotsubo cardiomyopathy 4. Moderate tricuspid regurgitation -Does not appear to be hypervolemic on exam. Weight is up 7 lb. Chronic lymphedema. -Heart failure education reinforced. -Continue Torsemide 40 mg BID -Continue Jardiance 25 mg daily -Hx Hyperkalemia with Spironolactone. 5. Ventricular fibrillation (HCC) 6. ICD (implantable cardioverter-defibrillator), single, in situ -Single-Chamber ICD 11/2010 -Continue to follow with our device clinic 7. Persistent atrial fibrillation (HCC) -Anticoagulated with Eliquis 5 mg twice daily -Continue Metoprolol Succinate 25 mg daily 8. Non-occlusive coronary artery disease -Lexiscan nuclear stress test suggestive of ischemia of the distal to mid anterior wall and basal inferolateral inferior wall.Moderate area of area of moderate severe intensity reversible defect of distal to mid anterior and apex. Basal inferolateral and inferior wall -Patient prefers medical management. No interest in cardiac catheterization. -Continue Aspirin 81 mg daily DISPOSITION: Follow upas scheduled or if symptoms worsen/fail to improve. All questions were answered to the patients satisfaction. Patient advised to report to ED with any and all emergencies. The patient agrees to the above plan and will call with additional questions or concerns. RITIKA Barahona Cardiology [address] [address] I spent a total of 30 minutes on the date of service in preparation, delivery, and documentation ofthe care provided to Lillian Feliciano excluding any time spent in the performance of separately billed services. This chart was completed in part utilizing [employer] Speech Voice Recognition Software. Grammatical errors, random [...] this encounter Nursing Notes * Jami Glover, CECILIAA - 11/21/2023 1:19 PM EST Examination Room: 3 Name: Lillian Feliciano Date of : (1935). Reason for Visit: hospital follow up Interim Hospitalization(s): 11/12/23 [facility] Dc Problems/Concerns: no new cardiac complaints. Pt reports improvement in edema and breathing. Chest Pain/SOB: no CP Medications were updated via: pt memory. My [facility] is a way you can talk to your provider online through e-mail. Would you like to sign up? I can activate it for you? ALREADY ACTIVE Patient was instructed to not get up [...] Description 02/16/2024 10:00 AM EDT Office Visit [facility] [address] [place] [address] Nel Rajan PA-C [address] [address] 04/04/2024 9:00 AM EDT Cardiac Studies [facility]ad Scott [address] [address] [facility] [address] [place] [address] Health Maintenance Due Date Last Done Comments Depression Screening 1947 Diabetic Foot Exam 1955 DTaP,Tdap,and Td Vaccines (1 - Tdap) 01/22/1956 Zoster Vaccines (1 of 2) 1987 Albumin/Creatinine Ratio 12/03/2015 12/02/2014 *SPIROMETRY ONCE FOR ASTHMA-ADULT 11/07/2016 COVID-19 Vaccine ( season) 2023 Influenza Vaccine (FLU shot) (#1) 2023 Diabetic Eye Exam 09/07/2023 09/07/2022, , 09/07/2022, Additional history exists HbA1c 05/10/2024 11/10/2023, 10/20, 10/12/2022, Additional history exists DXA Scan 05/31/2029 05/31/2022, 05/22/2019 Pneumococcal Vaccine: [...] this encounter Medical Devices Implanted Type Area Manager Of Business Operations Device Identifier Shelf Expiration Date Model / Serial / Lot Lens 21.0 [facility] - [id number] - [id number] Implanted:Qty: 1 on 01/28/2023 by Christian Woo DO at OR [facility] Lens Right: Eye [employer] 10/12/2025 CNA0T0.210 / [id number] / Lens 20.5 [facility] - [id number] - [id number] Implanted:Qty: 1 on 01/04/2023 by Christian Woo DO at OR [facility] Left: Eye [employer] 07/15/2025 CNA0T0.205 / [id number] / documented as of this encounter Visit Diagnoses Diagnosis Hospital discharge follow-up- Primary Other follow-up examination Chronic heart failure with preserved ejection fraction (HFpEF) (HCC) Takotsubo cardiomyopathy Takotsubo syndrome Moderate tricuspid regurgitation Diseases of tricuspid valve Ventricular fibrillation (HCC) Ventricular fibrillation ICD (implantable cardioverter-defibrillator), single, in situ Persistent atrial fibrillation (HCC) Atrial fibrillation Non-occlusive coronary artery disease Coronary atherosclerosis of unspecified type of vessel, wainwright or graft documented in this encounter Advance Directives Latest Code Status on File Code Status Date Activated Date Inactivated Comments Full Code 11/10/2023 3:07 AM 11/12/2023 5:00 PM This order reflects the patients wishes and were consensually agreed upon. Question Answer Comments Discussion of Advance Directives occurred with: Patient Does the patient have a Living Will? Yes, not currently available Does the patient have Health Care Power of Workers Compensation Analyst? Yes, not currently available Code Status History Code Status Date Activated [...] Discussion of Advance Directives occurred with: Patient Care Teams Cooking Instructor Relationship Specialty Start Date End Date Isrrael Bolivar DO [address] [place] [address] PCP - General Family Medicine 11/24/10 documented as of this encounter
--- OUTSIDE RECORDS SUMMARY | 2024-05-05 22:03 | External Medical Summary ---
Author Name Unknown Address Unknown Organization : Laboratory Report Ordering Provider Test Date Status MIMA BARRERA 12/21/2023 07:21:14 Final Observation Date Value Abnormality Reference (Units ) Status Glucose Point of Care 12/21/2023 07:21:14 121 Above high normal 70-120 (mg/dL) Final Performing Location
--- OUTSIDE RECORDS SUMMARY | 2024-05-05 22:03 | External Medical Summary ---
Author Name Unknown Address Unknown Organization K1[facility] - [address] [place] [place] [address] Laboratory Report Ordering Provider Test Date Status JAMES JETT 12/20/2023 04:25:00 Final Observation Date Value Abnormality Reference (Units ) Status Magnesium 12/20/2023 04:25:00 2.4 1.5-2.6 (m g/dL) Final Performing Location LAB[facility]ATORY [facility] - [address] [place] [address]
--- OUTSIDE RECORDS SUMMARY | 2024-05-05 22:03 | External Medical Summary ---
Author Name Unknown Address Unknown Organization K1F:LABORATORY [facility] - [address] [place] [address] Laboratory Report Ordering Provider Test Date Status PETRA VELÁZQUEZ 12/22/2023 04:24:00 Final POD #1 Observation Date Value Abnormality Reference (Units ) Status WBC, Total 12/22/2023 04:24:00 7.08 4.00-10.8 0 (K/uL) Final RBC 12/22/2023 04:24:00 4.25 3.85-5.15 (M/uL) Final Hemoglobin 12/22/2023 04:24:00 10.1 Below low normal 12 .0-15.3 (g/dL) Final HCT 12/22/2023 04:24:00 33.1 Below low normal 36. 0-45.2 (%) Final MCV 12/22/2023 04:24:00 77.9 81.5-97.5 (fL) Final MCH 12/22/2023 04:24:00 23.8 27.0-34.0 (pg) Final MCHC 12/22/2023 04:24:00 30.5 32.0-36.0 (g/dL) Final RDW 12/22/2023 04:24:00 19.7 11.5-15.5 (%) Final Platelets 12/22/2023 04:24:00 123 Below low normal 140 -400 (K/uL) Final MPV 12/22/2023 04:24:00 Final No result - abnormal platele t distribution. Nucleated erythrocytes/100 l eukocytes [Ratio] in Blood by Automated count 12/22/2023 04:24:00 0 <=0 (/100 WBCs) Final Performing Location [facility]ORY [facility] - [address] [place] [address]
--- OUTSIDE RECORDS SUMMARY | 2024-05-05 22:03 | External Medical Summary ---
Author Name Unknown Address Unknown Organization : Laboratory Report Ordering Provider Test Date Status MIMA BARRERA 12/21/2023 13:57:19 Final Observation Date Value Abnormality Reference (Units ) Status Glucose Point of Care 12/21/2023 13:57:19 133 Above high normal 70-120 (mg/dL) Final Performing Location
--- OUTSIDE RECORDS SUMMARY | 2024-05-05 22:03 | External Medical Summary ---
Author Name Unknown Address Unknown Organization K1[facility] - [address] [facility] [place] [address] Laboratory Report Ordering Provider Test Date Status JAMES JETT 12/20/2023 04:25:00 Final Observation Date Value Abnormality Reference (Units ) Status BUN 12/20/2023 04:25:00 22 Above high normal 6-20 (mg/dL) Final Creatinine 12/20/2023 04:25:00 0.9 0.5-1.0 (mg/dL) Final Glomerular filtration rate/1.73 sq M.predicted [Volume Rate/Area] in Serum, Plasma or Blood by Creatinine-based formula (CKD-EPI) 12/20/2023 04:25:00 60 >=60 (mL/min) Final eGFR is calculated based on the CKD-EPI 2020 equation Sodium 12/20/2023 04:25:00 144 135-146 (m mol/L) Final Potassium 12/20/2023 04:25:00 4.1 3.5-5.1 (m mol/L) Final Cl 12/20/2023 04:25:00 101 98-107 (mm ol/L) Final CO2 12/20/2023 04:25:00 34 Above high normal 22 -32 (mmol/L) Final Anion gap 12/20/2023 04:25:00 9 7-15 (mmol /L) Final Glucose 12/20/2023 04:25:00 135 Above high normal 70 -120 (mg/dL) Final Albumin 12/20/2023 04:25:00 3.9 3.8-5.0 (g /dL) Final AST (Aspartate aminotransferase) 12/20/2023 04:25:00 35 10-35 (U/L) Fin al Alk Phos 12/20/2023 04:25:00 81 35-130 (U/ L) Final Bilirubin, Total 12/20/2023 04:25:00 1.3 Above high no rmal <=1.2 (mg/dL) Final Calcium 12/20/2023 04:25:00 9.4 8.4-10.2 ( mg/dL) Final Protein 12/20/2023 04:25:00 6.1 6.0-8.3 (g /dL) Final ALT (Alanine aminotransferase) 12/20/2023 04:25:00 18 10-35 (U/L) Kishan gao Performing Location LABORATORY [facility] - [address] [place], [place] [address] [place] [address]
--- OUTSIDE RECORDS SUMMARY | 2024-05-05 22:03 | External Medical Summary ---
Author Name Unknown Address Unknown Organization : Laboratory Report Ordering Provider Test Date Status TREVER COWART 12/20/2023 11:40:50 Final Observation Date Value Abnormality Reference (Units ) Status Glucose Point of Care 12/20/2023 11:40:50 108 70-120 (mg/dL) Final Performing Location
--- OUTSIDE RECORDS SUMMARY | 2024-05-05 22:03 | External Medical Summary ---
Author Name Unknown Address Unknown Organization K1F:LABORATORY [facility] - [address] [place] [address] Laboratory Report Ordering Provider Test Date Status JAMES JETT 12/20/2023 04:25:00 Final Warfarin Therapy
INR: 2 .0-3.0 conventional anticoagulation
INR: 2.5- 3.5 high intensity anticoagulation Observation Date Value Abnormality Reference (Units ) Status PT 12/20/2023 04:25:00 16.0 Above high normal 11 .6-15.2 (seconds) Final INR 12/20/2023 04:25:00 1.3 Above high normal 0. 8-1.2 Final Performing Location LABORATORY [facility] - [address] [place] [address]
--- OUTSIDE RECORDS SUMMARY | 2024-05-05 22:03 | External Medical Summary ---
Author Name Unknown Address Unknown Organization K1F:LABORATORY [facility] - [address] [place] [address] Laboratory Report Ordering Provider Test Date Status MAGDALENA JETTCRISTIANA 12/19/2023 14:32:00 Final Results rechecked.

null Observation Date Value Abnormality Reference (Units ) Status Heparin, unfractionated level 12/19/2023 14:32:00 >1.10 Above upper panic limits <0.10 (IU/mL) Final Unfractionated therapeutic r anges for Anti Xa activity:
For Cardiac/Neurologic treatment: 0.3 to 0.6 IU/mL.
For treatment of DVT or Pulmonary Embolism: 0.3 to 0.7 IU/mL. Performing Location [facility] [address] [facility] [place] [address]
--- OUTSIDE RECORDS SUMMARY | 2024-05-05 22:03 | External Medical Summary ---
Author Name Unknown Address Unknown Organization : Laboratory Report Ordering Provider Test Date Status TREVER COWART 12/20/2023 07:18:41 Final Observation Date Value Abnormality Reference (Units ) Status Glucose Point of Care 12/20/2023 07:18:41 138 Above high normal 70-120 (mg/dL) Final Performing Location
--- OUTSIDE RECORDS SUMMARY | 2024-05-05 22:03 | External Medical Summary ---
Author Name Unknown Address Unknown Organization : Laboratory Report Ordering Provider Test Date Status MIMA BARRERA 12/21/2023 16:37:38 Final Observation Date Value Abnormality Reference (Units ) Status Glucose Point of Care 12/21/2023 16:37:38 142 Above high normal 70-120 (mg/dL) Final Performing Location
--- OUTSIDE RECORDS SUMMARY | 2024-05-05 22:03 | External Medical Summary ---
Author Name Unknown Address Unknown Organization K1F:[facility] - [address] [place] [address] Laboratory Report Ordering Provider Test Date Status EMILIE SIGALA 12/19/2023 10:36:00 Final Observation Date Value Abnormality Reference (Units ) Status Ethanol 12/19/2023 10:36:00 Negative Negative Final Performing Location LAB[facility]ATORY [facility] - [address] [place] [address]
--- OUTSIDE RECORDS SUMMARY | 2024-05-05 22:04 | External Medical Summary ---
Author Name Unknown Address Unknown Organization : Laboratory Report Ordering Provider Test Date Status REINALDO WEEMS 11/11/2023 08:06:43 Final Observation Date Value Abnormality Reference (Units ) Status Glucose Point of Care 11/11/2023 08:06:43 140 Above high normal 70-120 (mg/dL) Final Performing Location
--- OUTSIDE RECORDS SUMMARY | 2024-05-05 22:04 | External Medical Summary ---
Author Name Unknown Address Unknown Organization [id number]:[facility] - [address] [place] [address] Laboratory Report Ordering Provider Test Date Status CANDICE LEE 11/11/2023 04:32:00 Final Observation Date Value Abnormality Reference (Units ) Status WBC, Total 11/11/2023 04:32:00 7.81 4.00-10.80 (K/uL) Final RBC 11/11/2023 04:32:00 4.79 3.85-5.15 (M/uL) Final Hemoglobin 11/11/2023 04:32:00 11.5 Below low normal 12.0-15.3 (g/dL) Final HCT 11/11/2023 04:32:00 37.2 36.0-45.2 (%) Final MCV 11/11/2023 04:32:00 77.7 81.5-97.5 (fL) Final MCH 11/11/2023 04:32:00 24.0 27.0-34.0 (pg) Final MCHC 11/11/2023 04:32:00 30.9 32.0-36.0 (g/dL) Final RDW 11/11/2023 04:32:00 19.1 11.5-15.5 (%) Final Platelets 11/11/2023 04:32:00 140 140-400 (K/uL) Final MPV 11/11/2023 04:32:00 11.9 6.6-11.1 (fL) Final Nucleated erythrocytes/100 leukocytes [Ratio] in Blood by Automated count 11/11/2023 04:32:00 0 <=0 (/100 WBCs) Final Performing Location [facility] - [address] [place] [address]
--- OUTSIDE RECORDS SUMMARY | 2024-05-05 22:04 | External Medical Summary | Summary of Care ---
Author Name Unknown Organization [facility] Address [address] [place] [address] Phone [phone] Care Team Providers Care Bisque Brusher Name Role Phone Isrrael Bolivar DO Primary Care Provider [phone] Reason for Visit * Reason Comments Short of Breath * Auth/Cert Specialty Diagnoses / Procedures Referred By Albin t Referred To Contact Referral ID Status Reason Start Date Expiration Date Visits Re quested Visits Authorized [id number] Encounter Details Date Type Department Care Team (Latest Contact Info) Description 11/10/2023 12:10 AM EST - 11/12/2023 12:55 PM EST Hospital Encounter 5A [facility] 5th Floor [address], [place] [id number] Teodoro Beckett DO [address], [place] [id number] Johan Martel MD [address] [place], [place] [address] [address] Antonio Barajas MD [address] [place] [id number] Pt Handout (on AVS) Discharge Disposition: Home - Self Care Allergies No known active allergiesdocumented as of this encounter (statuses as of 11/13/2023) Medications Medication Sig Dispensed Refills Start Date End Date Status NITROGLYCERIN 0.4 MG SL SUBLIndications:H ypopotassemia,Car diac arrest ([facility]),INTERFACED RESULT,Respirator y failure, acute ([facility]),Ventricular fibrillation ([facility]),Acute non Q wave myocardial infarction ([facility]),Dyslipidemi a, goal LDL below 100,HTN, goal below 130/80,DM type 2, not at goal (HCC),Asthma, mild persistent,Electr olyte and fluid disorder 1 Tab Sublingual Every 5 minutes as needed for chest pain 30 Tab 3 1 Active Additional Information Patient not taking.Informant: Child, Reported on 11/10/2023 atorvaSTATin (LIPITOR) 40 MG Tablet Take 1 Tablet by mouth every evening. 0 Active ipratropium-albut fabrizio (COMBIVENT RESPIMAT) 20-100 MCG/ACT Inhaler Inhale 1 [...] Constipation. 10 Capsule 0 2 Active Fluticasone Furoate-Vilantero l 200-25 MCG/ACT Inhalation Aerosol Powder Breath Activated [...] 2 Active Apixaban 5 MG Oral Tablet (Eliquis)Indicati ons:Persistent atrial fibrillation (HCC) TAKE 1 TABLET BY [...] mouth in the morning. 0 3 Active glipiZIDE ER 2.5 MG Oral Tablet Extended Release 24 Hour (glipiZIDE XL) TAKE TWO TABLETS BY MOUTH IN THE MORNING AND TAKE ONE TABLET IN THE EVENING 0 3 Active Torsemide 20 MG Oral Tablet (Demadex)Indicati ons:HTN, goal below 140/90,Dyslipidem ia, goal LDL below 70,Permanent atrial fibrillation (HCC),Chronic diastolic congestive heart failure (HCC),ICD (implantable cardioverter-defi brillator), single, in situ Take 2 Tablets by mouth in the morning and 2 Tablets in the evening. 60 Tablet 0 4 Active traMADol HCl 50 MG Oral Tablet (Ultram) Take 1 Tablet by mouth every 6 hours as needed for Pain, Severe. 10 Tablet 0 3 11/12/19 24 Discontinued Torsemide 20 MG Oral Tablet (Demadex)Indicati ons:HTN, goal below 140/90,Dyslipidem ia, goal LDL below 70,Permanent atrial fibrillation (HCC),Chronic diastolic congestive heart failure (HCC),ICD (implantable cardioverter-defi brillator), single, in situ Take 1 Tablet by mouth in the morning and 1 Tablet in the evening. 0 4 11/12/19 24 Discontinued documented as of this encounter (statuses as of 11/13/2023) Active Problems Problem Noted Date Diagnosed Date Leg edema 11/10/2023 PAD (peripheral artery disease) 11/10/2023 Elevated transaminase level 11/10/2023 Coronary artery disease invo lving unga coronary artery of unga heart without angina pectoris 11/10/2023 Abnormal nuclear [...] as of this encounter (statuses as of 11/13/2023) Resolved Problems Problem Noted Date Diagnosed Date Resolved Date Cardiac/pericardial tamponade 11/02/2022 11/05/2022 Hypoxemia 11/24/2018 11/27/2018 Cardiac arrest 11/24/2010 07/14/2011 Ventricular fibrillation 11/24/2010 Acute non Q wave myocardial infarction 11/24/2010 07/14/2011 HTN, goal below 130/80 11/24/201005/11 Overview: Per HTN Protocol #27. documented as of this encounter (statuses as of 11/13/2023) Immunizations Name Administration Dates Next Due Pneumococcal [...] Sign Reading Time Taken Comments Blood Pressure 146/72 11/12/2023 11:00 AM EST Pulse 65 11/12/2023 11:00 AM EST Temperature 37.1 C (98.8 F) 11/12/2023 11:[address] Respiratory Rate 16 11/12/2023 11:00 AM EST Oxygen Saturation 97% 11/12/2023 11:00 AM EST Inhaled Oxygen Concentration - - Weight 57.7 kg (127 lb 4.8 oz) 11/12/2023 6:00 A M EST Height 167.6 cm (5' 6") 11/10/2023 3:15 AM EST Body Mass Index 20.55 11/10/2023 3:15 AM EST documented in this encounter Functional Status [...] No 11/10/2023 documented as of this encounter Discharge Summaries * Antonio Barajas MD - 11/12/2023 12:48 PM EST [address] [address] Admission Date: 11/10/2023 Discharge Date: 11/12/2023 RECOMMENDED TO DO FOR NEXT PROVIDER(S): - Get blood work done in 3 days - Follow up with Cardiology in 1 week - Increased Torsemide dose to 40 mg twice a day DISPOSITION ON DISCHARGE: home Active Hospital Problems Diagnosis *Principal Diagnosis - Acute respiratory failure with hypoxia (HCC) Leg edema PAD (peripheral artery disease) ([facility]) Elevated transaminase level Coronary artery disease involving unga coronary artery of unga heart without angina pectoris Abnormal nuclear stress test Chronic anticoagulation Acute on chronic diastolic heart failure (HCC) Uncontrolled hypertension Type 2 diabetes mellitus with hemoglobin A1c goal of less than 7.0% ([facility]) Resolved Hospital Problems No resolved problems to display. ADMISSION HISTORY & PHYSICAL EXAM (focused): 88 yo woman with below pmh that includes jhtn, chronic diastolic chf, chronic leg edema, dm2, a-fiband on anti-coagulation. She came to ED tonight withy complaint of worsening dyspnea and having to stop after a few steps to catch her breath. She normally doesn't use oxygen at home. She was observed with pursed lip breathing and received lasix in ED. She was recommended for admission. When I cameto interview patient her BP was 185/113; patient acknowledged that her BP can be high when she visits the doctor. She denies chest pain and felt less dyspneic on supplemental oxygen. No productive cough, confusion, pain. ROS: see hpi for pertinent ros; 10 systems reviewed and otherwise negative. Constitutional: elderly woman resting in bed, not in acute distress on supplemental o2 HEENT:normocephalic, atraumatic Eyes: sclera and conjunctiva normal Neck: supple, normal range of motion CV: normal rate Chest: normal respiratory effort, decreased bs at bases. Abdomen: normal: soft, bowel sounds normal, no tenderness Extremities: 2+ bilateral edema; lower legs are pink in color and patient states they are typicallylike this. Loss of hair in lower legs Skin: warm, dry, see above; c/w arterial disease. Neuro: alert, oriented to person, place, non-focal HOSPITAL COURSE (focused): 88 yo Female with A.fib on Eliquis, Takatsubu Cardiomyopathy c/b VFib arrest, /p Single chamber [id number], Viral Pericarditis/ Cardiac Tamponade s/p Pericardiocentesis 10/2022, LL PVD s/p Thromboembolectomy 12/2022 seen in cardiology clinic on 10/20/23 reports left sided chest pain and had Nuclear stress test done noted for Ischemia of the distal to mid anterior wall and basal inferolateral inferior wall. Moderate area of severe intensity reversible defect of distal to mid anterior and apex. Basal inferolateral and Inferior wall p/w Worsening sob x 2 days Troponin 13--> 21 Echo noted for Bi-ventricular heart failure with normal EF. Moderate TR Treated for Acute on chronic diastolic CHF with improvement in symptoms Appreciate cardiology evaluation. Pt not keen on having cardiac cath at this time. 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 Increased Torsemide to 40 mg BID on discharge Operations & Procedures: none Complications: none significant Significant Lab and Imaging Results: Latest Reference Range & Units 11/12/23 05:05 11/12/23 07:15 11/12/23 11:15 Sodium 135 - 146 mmol/L 139 Potassium 3.5 - 5.1 mmol/L 3.7 Chloride 98 - 107 mmol/L 102 CO2 22 - 32 mmol/L 26 BUN 6 - 20 mg/dL 17 Creatinine 0.5 - 1.0 mg/dL 0.8 Estimated Glomerular Filtration Rate >=60 mL/min 71 Anion Gap 7 - 15 mmol/L 11 Glucose 70 - 120 mg/dL 131 (H) Calcium 8.4 - 10.2 mg/dL 9.1 Glucose Meter 70 - 120 mg/dL 146 (H) 178 (H) CBC Rpt WBC 4.00 - 10.80 K/uL 7.03 HGB 12.0 - 15.3 g/dL 12.0 HCT 36.0 - 45.2 % 39.1 MCV 81.5 - 97.5 fL 77.7 PLT 140 - 400 K/uL 146 (H): Data is abnormally high Rpt: View report in Results Review for more information Results Pending at Discharge: Lab Results Pending at Discharge: None MEDICATION UPDATES AT DISCHARGE CHANGE how you take these medications INSTRUCTIONS Torsemide 20 MG Tablet Commonly known as: Demadex What changed: how much to take Notes to patient: Used to treat high blood pressure and get rid of extra fluid Take 2 Tablets by mouth in the morning and 2 Tablets in the evening. CONTINUE taking these medications INSTRUCTIONS Acetaminophen 325 MG Tablet Commonly known as: Tylenol Notes to patient: Used to treat pain, fever Take by mouth 3 Tablets in the morning AND 3 Tablets at noon AND 3 Tablets before bedtime. alendronate 70 MG Tablet Commonly known as: Fosamax Notes to patient: Used to treat osteoporosis Take 1 Tablet by mouth once a week. Apixaban 5 MG Tablet Commonly known as: Eliquis Notes to patient: Used to prevent blood clots TAKE 1 TABLET BY MOUTH 2 times daily aspirin 81 MG chewable tablet Notes to patient: Used to prevent blood clots Take 1 Tablet by mouth in the morning. atorvaSTATin 40 MG Tablet Commonly known as: Lipitor Notes to patient: Used to treat high cholesterol Take 1 Tablet by mouth every evening. colchicine 0.6 MG Tablet Notes to patient: Used to treat gout Take 1 Tablet by mouth in the morning. Docusate Sodium 100 MG Capsule Commonly known as: Colace Notes to patient: Used to prevent constipation Take 1 Capsule by mouth 2 times a day as needed for Constipation. fluticasone furoate-vilanterol 200-25 MCG/ACT Aepb Commonly known as: BREO ellipta Notes to patient: Used to treat COPD Inhale 1 Puff by mouth in the morning. glipiZIDE XL 2.5 MG Tb24 Generic drug: glipiZIDE XL Notes to patient: Used to treat diabetes TAKE TWO TABLETS BY MOUTH IN THE MORNING AND TAKE ONE TABLET IN THE EVENING Ipratropium-Albuterol 20-100 MCG/ACT Inhaler Commonly known as: Combivent Respimat Notes to patient: Used to treat COPD Inhale 1 Puff by mouth 4 times a day. Jardiance 25 MG Tabs Generic drug: Empagliflozin Notes to patient: Used to treat diabetes Take 1 Tablet by mouth in the morning. omeprazole 20 MG Cpdr Commonly known as: PriLOSEC Notes to patient: Used to treat acid reflux Take 1 Capsule by mouth in the morning. Pregabalin 150 MG Capsule Commonly known as: Lyrica Notes to patient: Used to treat nerve pain Take 1 Capsule by mouth in the morning and 1 Capsule before bedtime. Silver sulfADIAZINE 1 % cream Commonly known as: Silvadene Notes to patient: Used topically to treat skin infections Apply topically to affected area daily . Apply to BLE Toprol XL 25 MG Tb24 Generic drug: metoprolol succinate XL Notes to patient: Used to treat high blood pressure Take 1 Tablet by mouth in the morning. Triamcinolone Acetonide 0.1 % cream Commonly known as: Aristocort Notes to patient: Used to treat dry skin Apply to lower legs twice daily as needed for dry skin True Metrix Blood Glucose Test Strp Generic drug: Glucose Blood True Metrix Meter w/Device Kit TRUEplus Lancets 33G Misc STOP taking these medications traMADol 50 MG Tablet Commonly known as: Ultram CONTINUE taking these medications but follow up with your Primary Care Physician (PCP). INSTRUCTIONS Nitroglycerin 0.4 MG Subl Commonly known as: Nitrostat Notes to patient: Used to treat or prevent sudden onset of chest pain or pressure. Do not chew or swallow. Allow to dissolve under the tongue. Please sit down or lay down when taking as this medication may cause dizziness. If pain does not resolve after 3rd tablet, call 911. 1 Tab Sublingual Every 5 minutes as needed for chest pain SCHEDULED FOLLOW-UP: Future Appointments Appt Date/Time Provider Department 12/09/2023 9:00 AM MANAGER SOURCING [facility] Cardiac Studies, [facility] 02/16/2024 10:00 AM Nel Rajan PA-C Cardiology, [place] 04/04/2024 9:00 AM [place] Cardiology, [place] Outpatient Follow Up Basic Metabolic Panel Other Information Indwelling Devices: LINES None Vital Signs (last recorded): Most Recent Systolic BP: 146 mmHg (11/12/23 1100) Most Recent Diastolic BP: 72 mmHg (11/12/23 1100) Pulse: 65 (11/12/23 1100) Resp: 16 (11/12/23 1100) Most Recent Temperature: 37.11 C (11/12/23 1100) Weight: 57.7 kg (127 lb 4.8 oz) (11/12/23 0600) SpO2: 97 % (11/12/23 1100) O2 flow rate: 2 L/MIN (11/10/23 1400) Allergies: Patient has no known allergies. Activity: as tolerated Diet: cardiac diet Code Status: Full Code Condition on Discharge: stable Isolation status: None Cognition: normal HOSPITAL CONSULTS ORDERED: CARDIOLOGY CONSULT IP ADULT PHYSICAL THERAPY CONSULT IP ADULT OCCUPATIONAL THERAPY CONSULT IP REFERRING PHYSICIAN: Ref: [id number]] NO STREET ADDRESS AVAILABLE None (office) None (fax) PRIMARY CARE PROVIDER: PCP: Isrrael Bolivar DO [address] [facility] [address] (office) [phone] (fax) Note: To contact a physician responsible for this patients hospital care, please call [facility] [phone]. I spent a total of 40 minutes coordinating, documenting, and providing care for this patient excluding time spent in the performance of separately billed services. documented in this encounter Discharge Instructions * Discharge Instr - AVS* Antonio Barajas MD - 11/12/2023 10:50 AM EST Discharge Date: 11/12/2023 The information below provides you with the instructions and the list of medications you need to betaking following discharge from the hospital. If you have any questions, please ask before leaving. If you have questions after leaving, you can reach us at the numbers below. YOUR HOSPITAL PROVIDERS: Discharging Provider: Antonio Barajas MD Provider Department: Hospital Medicine To reach this Provider Tuesday through Tuesday (8:00 AM to 4:30 PM) for any questions or test results: Call [phone] For after-hours concerns: Call [phone] and have your provider paged, or the provider on air director for the Department of [facility] Medicine paged. Please note, the discharging provider will not be able to provide you with any medications refills.Please discuss these with your primary care provider. Worsening Symptoms: If you have new symptoms, or your symptoms get worse, please contact your Discharge Provider or Primary Care Provider (PCP). If these providers are not available, you can go to your local [facility] during their business hours. In an EMERGENCY situation: Call [phone] or go to the nearest emergency room. A BRIEF SUMMARY OF YOUR HOSPITAL STAY: You came to the hospital with: complaint of shortness of breath Your main diagnosis at discharge was: CHF exacerbation Operations & Procedures performed: none Complications: none significant Inpatient test results that are pending at discharge: none Advance Directive Documented: Advance Directive Does the Patient have an Advance Directive? No YOUR FOLLOW UP APPOINTMENTS: Primary Care Provider Information: PCP: Isrrael Bolivar DO [address] [facility] [address] (office) [phone] (fax) An appointment was requested with your PCP (Isrrael Bolivar DO) within 7 days. (Please take this form to this visit with your primary care physician.) You need the following studies in the future: BMP INSTRUCTIONS: Diet: Heart healthy diet Activity: As tolerated Additional Instructions: - Get blood work done in 3 days - Follow up with Cardiology in 1 week - Increased Torsemide dose to 40 mg twice a day documented in this encounter Progress Notes * [facility] - 11/12/2023 10:54 AM EST PHARMACY DISCHARGE MEDICATION RECONCILIATION REVIEW [address] [address] Name: Lillian Feliciano Location: [facility] Date: 11/12/2023 Time: 10:54 AM This discharge medication reconciliation was reviewed by a pharmacist and no corrections or interventions were required. * Antonio Barajas MD - 11/11/2023 11:03 AM EST Images from the original note were not included. [facility] INTERVAL HISTORY: 88 yo Female with A.fib on Eliquis, Takatsubu Cardiomyopathy c/b VFib arrest, /p Single chamber [id number], Viral Pericarditis/ Cardiac Tamponade s/p Pericardiocentesis 10/2022, LL PVD s/p Thromboembolectomy 12/2022 seen in cardiology clinic on 10/20/23 reports left sided chest pain and had Nuclear stress test done noted for Ischemia of the distal to mid anterior wall and basal inferolateral inferior wall. Moderate area of severe intensity reversible defect of distal to mid anterior and apex. Basal inferolateral and Inferior wall p/w Worsening sob x 2 days Currently being treated for Acute on chronic diastolic CHF Echo noted for Bi-ventricular heart failure with normal EF. Moderate TR - Good urine output. Pt feels Improved and able to walk in room. LE edema Improving. Denies any chest pain. Objective Physical Exam Most Recent Vital Signs: BP: 145 mmHg/77 mmHg (11/11/23 0710) Pulse: 72 (11/11/23 0917) Temp: 37.11 C (11/11/23 0710) Temp Summary: Temp Min: 36.2 C (97.2 F) Max: 37.4 C (99.3 F) SpO2: 95 % (11/11/23 0917) O2 flow rate: 2 L/MIN (11/10/23 1400) Supplemental O2 Delivery: Room Air, None (11/11/23919) Constitutional: Not in any respiratory distress HEENT: normocephalic, atraumatic; no masses, tenderness, or adenopathy CV: sinus rhythm, no murmur, gallops or rub appreciated. Chest: normal respiratory effort, Diminished at bases crackles+ Abdomen: Soft, bowel sounds normal, no masses or organomegaly. Extremities: 2+ edema, no cyanosis, normal ROM, no tenderness to palpation or ROM Skin: warm, dry, intact. Neuro: alert, oriented to person, place, and time, normal mental status exam, no focal neuro deficits. Peripheral Line Left;Lower 20 Gauge (Active) Number of days: 1 STUDIES: Encounter Orders Labs and other studies reviewed with pertinent findings noted below: Latest Reference Range & Units 11/11/23 04:32 Sodium 135 - 146 mmol/L 143 Potassium 3.5 - 5.1 mmol/L 3.4 (L) Chloride 98 - 107 mmol/L 105 CO2 22 - 32 mmol/L 27 BUN 6 - 20 mg/dL 16 Creatinine 0.5 - 1.0 mg/dL 0.8 Estimated Glomerular Filtration Rate >=60 mL/min 73 Anion Gap 7 - 15 mmol/L 11 Glucose 70 - 120 mg/dL 117 Calcium 8.4 - 10.2 mg/dL 9.0 CBC Rpt ! WBC 4.00 - 10.80 K/uL 7.81 HGB 12.0 - 15.3 g/dL 11.5 (L) HCT 36.0 - 45.2 % 37.2 MCV 81.5 - 97.5 fL 77.7 PLT 140 - 400 K/uL 140 (L): Data is abnormally low !: Data is abnormal Rpt: View report in Results Review for more information Assessment and Plan IMPRESSION : Principal Problem: Acute respiratory failure with hypoxia (HCC) Active Problems: Type 2 diabetes mellitus with hemoglobin A1c goal of less than 7.0% (HCC) Uncontrolled hypertension Acute on chronic diastolic heart failure (HCC) Chronic anticoagulation Leg edema PAD (peripheral artery disease) (HCC) Elevated transaminase level Coronary artery disease involving unga coronary artery of unga heart without angina pectoris Abnormal nuclear stress test Resolved Problems: * No resolved hospital problems. * DIFFERENTIAL AND PLAN: 88 yo Female with A.fib on Eliquis, Takatsubu Cardiomyopathy c/b VFib arrest, /p Single chamber [id number], Viral Pericarditis/ Cardiac Tamponade s/p Pericardiocentesis 10/2022, LL PVD s/p Thromboembolectomy 12/2022 seen in cardiology clinic on 10/20/23 reports left sided chest pain and had Nuclear stress test done noted for Ischemia of the distal to mid anterior wall and basal inferolateral inferior wall. Moderate area of severe intensity reversible defect of distal to mid anterior and apex. Basal inferolateral and Inferior wall p/w Worsening sob x 2 days Troponin 13--> 21 Currently being treated for Acute on chronic diastolic CHF Echo noted for Bi-ventricular heart failure with normal EF. Moderate TR - Appreciate cardiology evaluation. - Continue IV Lasix. Monitor output - Pt not knee on having cardiac cath at this time. Spoke with pt's daughter over phone and she alsowants to avoid cath and continue medical management - Continue [employer]OR Aspirin/ Eliquis/ Metoprolol XL - PT/ OT consulted Time spent: 55 Mins. More than half with patient and remaining time for reviewing labs, medial records, coordination of care with nurses and specialities. Ortiz elements of the counseling and coordination of care included detail of treatment plan w/ pt and caregivers, content of pt and/or family discu ssions, ortiz tests or procedures reviewed/ordered in med rec, outcomes of discussions with other healthcare providers PHARMACOLOGIC VTE PROPHYLAXIS: Apixaban CODE STATUS: Full Code EXPECTED DISCHARGE DATE: 11/12/2023 * Casi Suh CRNP - 11/11/2023 8:49 AM EST PROGRESS NOTE - Cardiology Service [facility] [place] [facility] [address] [place] [address] Name: Lillian Feliciano Location: [facility] [id number] Date: 11/11/2023 Time: 8:49 AM SUBJECTIVE: The patient in cardiology follow up in regard to acute on chronic CHF exacerbation. She is feeling better today and her shortness of breath has improved. Review of systems: Review of Systems Constitutional: Negative for activity change, fatigue and unexpected weight change. Eyes: Negative for visual disturbance. Respiratory: Negative for shortness of breath and wheezing. Cardiovascular: Positive for leg swelling. Negative for chest pain and palpitations. Gastrointestinal: Negative for blood in stool, constipation, diarrhea, nausea and vomiting. Genitourinary: Negative for hematuria. Musculoskeletal: Negative for arthralgias and gait problem. Skin: Negative for wound. Neurological: Negative for dizziness and syncope. OBJECTIVE: Most Recent Vital Signs: BP: 145 mmHg/77 mmHg (11/11/23 0710) Pulse: 79 (11/11/23 0710) Temp: 37.11 C (11/11/23 0710) Temp Summary: Temp Min: 36.2 C (97.2 F) Max: 37.4 C (99.3 F) SpO2: 95 % (11/11/23 0710) O2 flow rate: 2 L/MIN (11/10/23 1400) Supplemental O2 Delivery: Room Air, None (11/11/23 0710) Vital Signs Last 24 Hours: Systolic BP: Most Recent Systolic BP Av.4 mmHg Min: 89 mmHg Max: 145 mmHg Temperature: Most Recent Temperature Av.9 C Min: 36.22 C Max: 37.39 C Pulse: Pulse Av Min: 52 Max: 92 Respirations: Resp Av.3 Min: 16 Max: 20 SpO2: SpO2 Av.3 % Min: 92 % Max: 100 % Physical Exam Constitutional: General: She is awake. She is not in acute distress. Appearance: Normal appearance. HENT: Head: Normocephalic and atraumatic. Eyes: Extraocular Movements: Extraocular movements intact. Pupils: Pupils are equal, round, and reactive to light. Neck: Vascular: No carotid bruit or JVD. Cardiovascular: Rate and Rhythm: Normal rate and regular rhythm. Pulses: Carotid pulses are 2+ on the right side and 2+ on the left side. Radial pulses are 2+ on the right side and 2+ on the left side. Dorsalis pedis pulses are 2+ on the right side and 2+ on the left side. Posterior tibial pulses are 2+ on the right side and 2+ on the left side. Heart sounds: Normal heart sounds, S1 normal and S2 normal. No murmur heard. No gallop. Pulmonary: Effort: Pulmonary effort is normal. No accessory muscle usage. Breath sounds: No wheezing or rhonchi. Musculoskeletal: Cervical back: Neck supple. Right lower leg: No edema. Left lower leg: No edema. Skin: General: Skin is warm and dry. Capillary Refill: Capillary refill takes less than 2 seconds. Neurological: Mental Status: She is alert and oriented to person, place, and time. Mental status is at baseline. Psychiatric: Attention and Perception: Attention and perception normal. Behavior: Behavior is cooperative. Judgment: Judgment normal. Current Facility-Administered Medications Medication Dose Route Frequency Provider Acetaminophen (Tylenol) tab 650 mg 650 mg Oral Q6H PRN Yuri Hall CRNP Apixaban (Eliquis) tab 5 mg 5 mg Oral BID(AM/PM) Yuri Hall CRNP aspirin chew tab 81 mg 81 mg Oral Daily(AM) Yuri Hall CRNP colchicine tab 0.6 mg 0.6 mg Oral Daily(AM) Yuri Hall CRNP dextrose 50 % inj 25 mL 25 mL IV Push PRN Yuri Hall CRNP dextrose 50 % inj 50 mL 50 mL IV Push PRN Yuri Hall CRNP Docusate Sodium (Colace) cap 100 mg 100 mg Oral BID PRN Yuri Hall CRNP Empagliflozin (Jardiance) tab 25 mg 25 mg Oral Daily(AM) Yuri Hall CRNP fluticasone furoate-vilanterol (BREO ellipta) 200-25 MCG/ACT inhaler 1 Puff 1 Puff Inhalation Daily(AM) Yuri Hall CRNP Furosemide (Lasix) inj 60 mg 60 mg IV Push BID (0900,1600) Antonio Barajas MD glucagon (Glucagen) inj 1 mg 1 mg Intramuscular PRN Yuri Hall CRNP Glucose (Glutose 15) 40 % gel 15 g of glucose 15 g of glucose Oral PRN Yuri Hall CRNP Glucose (Glutose 15) 40 % gel 30 g of glucose 30 g of glucose Oral PRN Yuri Hall CRNP glucose chew tab 16 g 16 g Oral PRN Yuri Hall CRNP home medication stored in pharmacy Does Not Apply Daily(AM) Derrek Delgado [facility] insulin aspart (NovoLOG) inj Subcutaneous With Meals and HS Yuri Hall CRNP Ipratropium-Albuterol (Combivent Respimat) inhaler 1 Puff 1 Puff Inhalation Resp QID Antonio Barajas MD metoprolol succinate XL (toPROL XL) tab 25 mg 25 mg Oral Daily(AM) Antonio Barajas MD omeprazole (PriLOSEC) cap 20 mg 20 mg Oral Daily(AM) Yuri Hall CRNP oxygen GAS Inhalation Oxygen Yuri Hall CRNP sodium chloride 0.9 % flush peripheral yanet 3 mL 3 mL IV Push Q Shift Yuri Hall CRNP sodium chloride 0.9 % flush/inj 3 mL 3 mL IV Push PRN Yuri Hall CRNP Results Labs & Imaging Reviewed Below: Device Interrogation: 10/29/23 DRAWER IN DOBBY LOOM 1.78% A Fib [place] ECG 11/10/23 A Fib 90 bpm QTc 452 ms 10/14/23 A Fib Septal Infarct 66 bpm QTc 434 ms 07/30/23 A Fib, PVCs 84 bpm QTc 441 ms 12/23/22 A Fib, PVC 93 bpm QTc 469 ms Echocardiograms 11/10/23 The examination is adequate to evaluate the referral indication. The primary indication after review was deemed appropriate and the examination was performed. Calculated LV ejection Fraction = 54% (three [...] from 12/2022 there is no significant change. 12/24/22 The examination is adequate to evaluate [...] attenuation. LABS: Labs reviewed as indicated below: Latest Reference Range & Units 11/10/23 00:43 11/11/23 04:32 Temperature C 37.0 pH, Venous 7.320 - 7.430 units 7.377 pCO2, Venous 40.0 - 60.0 mmHg 51.5 pO2, Venous 25.0 - 50.0 mmHg 34.4 O2 Content, Venous 7.0 - 18.0 %vol 8.4 Oxyhemoglobin, Venous 40.0 - 85.0 % total Hgb 52.6 Base Excess, Venous -2.0 - 2.0 mmol/L 4.0 (H) Carboxyhemoglobin, Whole Blood <=1.5 % total Hgb 1.0 Methemoglobin, Whole Blood <=1.5 % total Hgb 0.5 Reduced Hemoglobin, Venous % total Hgb 45.9 Troponin T, High Sensitivity <=14 ng/L 13 BNP, NT-Pro <300 pg/mL 1,492 (H) Sodium 135 - 146 mmol/L 144 143 Potassium 3.5 - 5.1 mmol/L 4.1 3.4 (L) Chloride 98 - 107 mmol/L 107 105 CO2 22 - 32 mmol/L 26 27 BUN 6 - 20 mg/dL 19 16 Creatinine 0.5 - 1.0 mg/dL 1.0 0.8 Estimated Glomerular Filtration Rate >=60 mL/min 55 (L) 73 Anion Gap 7 - 15 mmol/L 11 11 Glucose 70 - 120 mg/dL 149 (H) 117 Calcium 8.4 - 10.2 mg/dL 9.4 9.0 Magnesium 1.5 - 2.6 mg/dL 2.2 Bicarbonate, Whole Blood 23.0 - 31.0 mmol/L 29.6 Protein 6.0 - 8.3 g/dL 6.1 Estimated Average Glucose <126 mg/dL 174 (H) INR 0.8 - 1.2 1.2 Prothrombin Time 11.6 - 15.2 seconds 15.4 (H) Hemoglobin A1C 4.0 - 5.6 % 7.7 (H) CBC Rpt ! Rpt ! CBC WITH WBC DIFFERENTIAL Rpt ! WBC 4.00 - 10.80 K/uL 6.70 7.81 HGB 12.0 - 15.3 g/dL 11.5 (L) 11.5 (L) Hemoglobin, Whole Blood 12.0 - 15.3 g/dL 11.3 (L) HCT 36.0 - 45.2 % 37.3 37.2 MCV 81.5 - 97.5 fL 80.0 77.7 PLT 140 - 400 K/uL 125 (L) 140 Absolute Neutrophils 1.80 - 7.70 K/uL 4.34 Absolute Lymphocytes 1.00 - 4.80 K/ul 1.54 Absolute Monocytes 0.00 - 1.10 K/uL 0.71 Absolute Eosinophils 0.00 - 0.70 K/uL 0.09 Absolute Basophils 0.00 - 0.20 K/uL 0.01 Albumin 3.8 - 5.0 g/dL 3.5 (L) AST 10 - 35 U/L 187 (H) ALT 10 - 35 U/L 79 (H) Alkaline Phosphatase 35 - 130 U/L 87 Bilirubin, Total <=1.2 mg/dL 0.5 IMAGING: CXR 11/10/23 IMPRESSION: No acute findings. IMPRESSION and PLAN: Acute on Chronic Respiratory Failure DM II HTN PAD Hx V Fib Cardiac Arrest, 11/2010 s/p ICD STEMI 11/2010, normal coronaries on cath Permanent A Fib Pericardial effusion s/p pericardiocentesis 10/2022 HLD Hx Acute Limb Ischemia s/p thromboembolectomy 12/24/2022 PAD -patient presented with sudden onset shortness of breath and was noted to be volume overloaded on exam - she has had a good response to IV diuresis and appears euvolemic on exam today - repeat echo indicated normal ejection fraction and overall unchanged from her prior resting echo completed a year ago - will transition to torsemide will increase to 40 mg twice daily -continue apixaban, aspirin - abnormal stress test results were reviewed with the patient and family they opted for continued medical management -Please document accurate I&Os -Monitor and replace electrolytes as needed. (Recommend K > 4.0 & Mag > 2.0) -Please record daily weights -2L fluid restriction -2 gm sodium restriction -Please apply compression stockings or phan wraps first thing in the morning and remove at night. Repeat daily. -Encourage patient to elevate lower extremities throughout the day. -atorvastatin held on admission elevated LFTs, would recommend resuming once these improve - will need repeat BNP in 1 week after increase in torsemide to re-evaluate renal function - will need outpatient CHF follow up Patient care discussed and coordinated with Dr. Lipscomb. Please refer to Dr. Lipscomb's notes for further recommendations. RITIKA Bolden Department of Cardiology I spent a total of 30 minutes on the date of service in preparation, delivery, and documentation ofthe care provided to Lillian Feliciano excluding any time spent in the performance of separately billed services. This chart was completed in part utilizing [employer] Speech Voice Recognition Software. Grammatical errors, random word insertions, pronoun errors, and incomplete sentences are an occasional consequence of this system due to software limitations, ambient noise, and hardware issues. Any formal questions or concerns about the content, text, or information contained within the body of this dictation should be directly addressed to the provider for clarification. Associated attestation - Arti Lipscomb DO - 11/11/2023 4:20 PM EST I have reviewed the advanced practitioner's documentation on the date of service referenced in note, and I agree with, and take responsibility for the plan of care. Pt seen in cardiology f/u due to acute on chronic heart failure Pt is doing better; she ambulated the halls today and felt good She is euvolemic on exam would stop IV lasix and transition to torsemide 40mg daily Continue other cardiac medications She will need CHF f/u in our office upon discharge She is ok for discharge from a cardiac perspective -I discussed my plan and recommendations to the hospitalist as outlined above and they are in agreement with recommendations. Arti Lipscomb, DO Department of Cardiology [facility] [place] [address] I spent a total of 25 minutes coordinating, documenting, and providing care for this patient excluding time spent in the performance of separately billed services or time spent by another provider/QHP. documented in this encounter H&P Notes * Dmitri Banda MD - 11/10/2023 3:02 AM EST Images from the original note were not included. [facility] PRESENTING PROBLEM: manager plan of breath HPI: This is an 88 yo woman with below pmh that includes jhtn, chronic diastolic chf, chronic leg edema, dm2, a-fib and on anti-coagulation. She came to ED tonight withy complaint of worsening dyspnea and having to stop after a few steps to catch her breath. She normally doesn't use oxygen at home.She was observed with pursed lip breathing and received lasix in ED. She was recommended for admission. When I came to interview patient her BP was 185/113; patient acknowledged that her BP can be high when she visits the doctor. She denies chest pain and felt less dyspneic on supplemental oxygen. No productive cough, confusion, pain. ROS: see hpi for pertinent ros; 10 systems reviewed and otherwise negative. Subjective Patient's past history, medications, and allergies were reviewed. Objective Physical Exam Most Recent Vital Signs: BP: 153 mmHg/81 mmHg (11/10/23 0230) Pulse: 82 (11/10/23 0230) Temp: 37 C (11/10/23 0017) Temp Summary: Temp Min: 37 C (98.6 F) Max: 37 C (98.6 F) SpO2: 96 % (11/10/23 0230) O2 flow rate: 2 L/MIN (11/10/2353) Supplemental O2 Delivery: Nasal Cannula (11/10/2353) Constitutional: elderly woman resting in bed, not in acute distress on supplemental o2 HEENT:normocephalic, atraumatic Eyes: sclera and conjunctiva normal Neck: supple, normal range of motion CV: normal rate Chest: normal respiratory effort, decreased bs at bases. Abdomen: normal: soft, bowel sounds normal, no tenderness Extremities: 2+ bilateral edema; lower legs are pink in color and patient states they are typicallylike this. Loss of hair in lower legs Skin: warm, dry, see above; c/w arterial disease. Neuro: alert, oriented to person, place, non-focal Peripheral Line Left;Lower 20 Gauge (Active) Number of days: 0 STUDIES: Encounter Orders Labs and other studies reviewed with pertinent findings noted below: Results for orders placed or performed during the hospital encounter of 11/10/23 RESPIRATORY PATHOGEN PANEL, PCR Result Value Ref Range Adenovirus by PCR Negative Negative Coronavirus 229E by PCR Negative Negative Coronavirus HKU1 by PCR Negative Negative Coronavirus NL63 by PCR Negative Negative Coronavirus OC43 by PCR Negative Negative Coronavirus SARS-CoV-2 by PCR Negative Negative Human Metapneumovirus by PCR Negative Negative Rhinovirus/Enterovirus by PCR Negative Negative Influenza A Virus by PCR Negative Negative Influenza B Virus by PCR Negative Negative Parainfluenza Virus 1 by PCR Negative Negative Parainfluenza Virus 2 by PCR Negative Negative Parainfluenza Virus 3 by PCR Negative Negative Parainfluenza Virus 4 by PCR Negative Negative Respiratory Syncytial Virus by PCR Negative Negative Bordetella pertussis by PCR Negative Negative Chlamydia pneumoniae by PCR Negative Negative Mycoplasma pneumoniae by PCR Negative Negative Bordetella parapertussis by PCR Negative Negative COMPREHENSIVE METABOLIC PANEL Result Value Ref Range BUN 19 6 - 20 mg/dL Creatinine 1.0 0.5 - 1.0 mg/dL Estimated Glomerular Filtration Rate 55 (L) >=60 mL/min Sodium 144 135 - 146 mmol/L Potassium 4.1 3.5 - 5.1 mmol/L Chloride 107 98 - 107 mmol/L CO2 26 22 - 32 mmol/L Anion Gap 11 7 - 15 mmol/L Glucose 149 (H) 70 - 120 mg/dL Albumin 3.5 (L) 3.8 - 5.0 g/dL AST 187 (H) 10 - 35 U/L Alkaline Phosphatase 87 35 - 130 U/L Bilirubin, Total 0.5 <=1.2 mg/dL Calcium 9.4 8.4 - 10.2 mg/dL Protein 6.1 6.0 - 8.3 g/dL ALT 79 (H) 10 - 35 U/L BNP, NT-PRO Result Value Ref Range BNP, NT-Pro 1,492 (H) <300 pg/mL TROPONIN T, HIGH SENSITIVITY Result Value Ref Range Troponin T, High Sensitivity 13 <=14 ng/L PT INR Result Value Ref Range Prothrombin Time 15.4 (H) 11.6 - 15.2 seconds INR 1.2 0.8 - 1.2 CBC Result Value Ref Range WBC 6.70 4.00 - 10.80 K/uL RBC 4.66 3.85 - 5.15 M/uL HGB 11.5 (L) 12.0 - 15.3 g/dL HCT 37.3 36.0 - 45.2 % MCV 80.0 81.5 - 97.5 fL MCH 24.7 27.0 - 34.0 pg MCHC 30.8 32.0 - 36.0 g/dL RDW 19.1 11.5 - 15.5 % PLT 125 (L) 140 - 400 K/uL MPV 11.8 6.6 - 11.1 fL nRBCs 0 <=0 /100 WBCs DIFFERENTIAL, AUTOMATED Result Value Ref Range WBC 6.70 4.00 - 10.80 K/uL Neutrophils % 64.9 40.0 - 75.0 % Lymphocytes % 23.0 18.0 - 42.0 % Monocytes % 10.6 1.0 - 11.0 % Eosinophils % 1.3 0.0 - 6.0 % Basophils % 0.1 0.0 - 2.0 % Immature Granulocytes % 0.1 0.0 - 2.0 % Absolute Neutrophils 4.34 1.80 - 7.70 K/uL Absolute Lymphocytes 1.54 1.00 - 4.80 K/ul Absolute Monocytes 0.71 0.00 - 1.10 K/uL Absolute Eosinophils 0.09 0.00 - 0.70 K/uL Absolute Basophils 0.01 0.00 - 0.20 K/uL Absolute Immature Granulocytes 0.01 0.00 - 0.20 K/uL BLOOD GAS, VENOUS Result Value Ref Range Temperature 37.0 C pH, Venous 7.377 7.320 - 7.430 units pCO2, Venous 51.5 40.0 - 60.0 mmHg pO2, Venous 34.4 25.0 - 50.0 mmHg Base Excess, Venous 4.0 (H) -2.0 - 2.0 mmol/L Hemoglobin, Whole Blood 11.3 (L) 12.0 - 15.3 g/dL Oxyhemoglobin, Venous 52.6 40.0 - 85.0 % total Hgb Carboxyhemoglobin, Whole Blood 1.0 <=1.5 % total Hgb Methemoglobin, Whole Blood 0.5 <=1.5 % total Hgb Reduced Hemoglobin, Venous 45.9 % total Hgb O2 Content, Venous 8.4 7.0 - 18.0 %vol Bicarbonate, Whole Blood 29.6 23.0 - 31.0 mmol/L MAGNESIUM Result Value Ref Range Magnesium 2.2 1.5 - 2.6 mg/dL XR CHEST 1 VIEW Final Result PROCEDURE INFORMATION: Exam: XR Chest Exam date and time: 11/10/2023 12:22 AM Age: 88 years old Clinical indication: Shortness of breath; Additional info: SOB TECHNIQUE: Imaging protocol: Radiologic exam of the chest. Views: 1 view. COMPARISON: DX XR CHEST 1 VIEW 10/14/2023 7:43 AM FINDINGS: Tubes, catheters and devices: Left chest wall AICD. Lungs: Mild hyperinflation of the lungs. No consolidation. Pleural spaces: Unremarkable. No pleural effusion. No pneumothorax. Heart/Mediastinum: Stable cardiomediastinal silhouette. Vasculature: Atherosclerotic calcification of the thoracic aorta. Bones/joints: Unremarkable. IMPRESSION IMPRESSION: No acute findings. THIS DOCUMENT HAS BEEN ELECTRONICALLY SIGNED BY CRISPIN ARREOLA MD I personally reviewed her EKG which shows a-fib with controlled HR I personally reviewed cxr which shows cardiomegaly and defibrillator in place. Assessment and Plan IMPRESSION: Principal Problem: Acute respiratory failure with hypoxia (HCC) Active Problems: Type 2 diabetes mellitus with hemoglobin A1c goal of less than 7.0% (HCC) Uncontrolled hypertension Acute on chronic diastolic heart failure (HCC) Chronic anticoagulation Leg edema PAD (peripheral artery disease) (HCC) Elevated transaminase level Resolved Problems: * No resolved hospital problems. * DIFFERENTIAL AND PLAN: Respiratory failure might be a consequence of decompensated chf, but her weight is down c/w prior weight and her bnp is lower too. Uncontrolled HTN could have contributed to her dyspnea and it needs better control and treatment. -admit to monitored bed -would switch metoprolol to coreg -consider starting phan-I or arb -continue diuretic -cardiology consult -echocardiogram -cause of elevated transaminase is unclear; would repeat -insulin for dm2 -check MARIA A regarding PAD. PHARMACOLOGIC VTE PROPHYLAXIS:Apixaban CODE STATUS: Full Code EXPECTED DISCHARGE DATE: 1-2 days or more I spent a total of 60 minutes coordinating, documenting, and providing care for this patient excluding time spent in the performance of separately billed services. documented in this encounter Consult Notes * Christine Mauricio, OTR/L - 11/11/2023 2:27 PM ESTAssociated Order(s): ADULT OCCUPATIONAL THERAPY CONSULT IP GENERAL EVALUATION - Occupational Therapy [facility] [id number] Name: Lillian Feliciano Location: [facility] [id number] Date: 11/11/2023 Time: 2:52 PM Lillian Feliciano is a 88 year old female. Per H&P: "This is an 88 yo woman with below pmh that includes jhtn, chronic diastolic chf, chronic leg edema, dm2, a-fib and on anti-coagulation. She came to ED tonight withy complaint of worsening dyspnea and having to stop after a few steps to catch her breath. She normally doesn't use oxygenat home. She was observed with pursed lip breathing and received lasix in ED. She was recommended for admission. When I came to interview patient her BP was 185/113; patient acknowledged that her BP can be high when she visits the doctor. She denies chest pain and felt less dyspneic on supplementaloxygen. No productive cough, confusion, pain. ROS: see hpi for pertinent ros; 10 systems reviewed and otherwise negative." Patient Status: Inpatient Insurance: Payor: [employer] MEDICARE ADVANTAGE Plan: [employer] CHOICE PPO Product Type: *No Product type* Payor: [employer] CLARICE Plan: [employer] [facility] Product Type: HMO Patient Seen: at bedside Patient Identified By: Name, ID Band and Date Diagnosis: CHF, Acute respiratory failure with hypoxia (11/11/231426) Status of treatment: OOB evaluation completed (11/11/231426) Orders: OT evaluation and treatment (11/11/231426) Weight Bearing Status: Weight bearing as tolerated (11/11/231426) Precautions: Alarms;Falls;Safety (11/11/231426) Total Treatment Time: 18 (11/11/231426) Past Medical History: Past Medical History: Diagnosis Date A-fib ([facility] [place]) Asthma, mild persistent Critical limb ischemia of left lower extremity with autologous bypass graft ([facility]) 12/24/2022 DM type 2, goal A1c below 7 Hyperlipidemia Hypertension ICD (implantable cardioverter-defibrillator) in place Myocardial infarction acute ([facility]) 11/24/2010 Ventricular fibrillation arrest, Possible Takotsubo syndrome Nonischemic cardiomyopathy ([facility]) Takotsubo cardiomyopathy Past Surgical History: Past Surgical History: Procedure Laterality Date CORONARY ANGIOGRAPHY W/LEFT HEART CATH 12/04/2010 CORONARY ANGIOGRAPHY W/LEFT HEART CATH [place]O [place]WIS [place] [facility] [place]ARY [place]GIOGRAPHY W/LEFT HEART CATH Right 11/01/2022 CORONARY ANGIOGRAPHY W/LEFT HEART CATH performed [place] Kaden Armstrong DO [place] [facility] [place]ROP[place]SI[place] EVALUATION 12/07/2010 ICD IMPLANT DEVICE/LEADS TESTING performed by RAPHAEL MITTAL at [facility] [place] INFORMATION Bilateral tubal INSERT/REPLACE DEFIBRILLATOR W/TRANSVERSE LEAD(S) Left 11/27/2010 Medtronic single chamber PERICARDIOCENT INTL/HOSP ONLY Left 11/02/2022 PERICARDIOCENTESIS performed [place] Dinora Bingham MD [place] [facility] [place]OVE CATARACT, INSERT LENS PROSTH Left 01/04/2023 EXTRACAPSULAR CATARACT REMOVAL WITH INTRAOCULAR LENS performed by Christian Woo DO at OR [facility] REMOVE CATARACT, INSERT LENS PROSTH Right 01/28/2023 EXTRACAPSULAR CATARACT REMOVAL WITH INTRAOCULAR LENS performed by Christian Woo DO at OR [facility] SYNTH BYPASS, FEMORAL-POP Left 12/23/2022 BYPASS GRAFT OTHER THAN VEIN FEMORAL POPLITEAL performed by Misael Reese MD at [place] [facility] [place] THROMB ART/VENOUS GRAFT W/REVI Left 12/23/2022 THROMBECTOMY ARTERIAL VENOUS GRAFT WITH REVISION performed by Misael Reese MD [place] [facility] [place] Social History/Disposition Lives with: Alone (11/11/231426) Assistance available: Yes (daughter and granddaughters assist as needed) (11/11/231426) Dwelling type: Apartment (11/11/231426) Entry steps: 4 (with BHR at back entrance from parking lot, which patient uses) (11/11/231426) Inside steps: Elevator (11/11/231426) Bedroom location: 1st floor (11/11/231426) Bath location: 1st floor full bath (tub-shower) (11/11/231426) Prior Level of Function Reported by: Patient (11/11/231426) Ambulation: Ambulatory without device (11/11/231426) Grooming: Independent (11/11/231426) Bathing: Independent (11/11/231426) Dressing: Independent (11/11/231426) Feeding: Independent (11/11/231426) Toileting: Independent (11/11/231426) Meal Prep: Independent (11/11/231426) Homemaking: Independent (11/11/231426) Shopping: Independent (11/11/231426) Medication Management: Independent (11/11/231426) Money Management: Independent (11/11/231426) Occupation/Leisure Skills: Retired (11/11/231426) Driving: Yes (11/11/231426) Durable Medical Equipment at home: Grab bars;Rolling walker;Shower chair;Straight cane (11/11/231426) Subjective: Pt agreeable to OT session. Pain: No complaints of pain Observations Consciousness: Alert (11/11/231426) Orientation: Oriented times 4 (11/11/231426) Psychosocial: Patient can communicate basic needs;Patient can converse in a social setting (11/11/231426) Sitting posture: Forward head;Rounded shoulders (11/11/231426) Standing posture: Forward head;Rounded shoulders (11/11/231426) Safety awareness: The Patient verbalizes insight of current deficits.;The Patient demonstrates carryover of insight during functional tasks. (11/11/231426) Other Findings Endurance: Sitting tolerance;Standing tolerance;Functional activity;Fair (11/11/231426) Light touch sensation: LUE;RUE;Intact (11/11/231426) Proprioception: LUE;RUE;Intact (11/11/231426) Coordination: RUE;LUE;Intact (11/11/231426) Current Functional Status: Bilateral Upper Extremity Hand Dominance: Right (11/11/231426) Range of Motion: WFL (11/11/231426) Strength Assessment: (BUE grossly 4/5) (11/11/231426) Self Care Feeding: Independent (11/11/231426) Grooming: Supervision (Please comment) (11/11/231426) Toileting: Supervision (Please comment) (11/11/231426) Dressing Lower Body: Supervision (Please comment) (to doff/don slipper socks) (11/11/231426) Bathing Upper Body: Supervision (Please comment) (setup assist, per pt report) (11/11/231426) Lower Body: Supervision (Please comment) (setup assist, per pt report) (11/11/231426) Functional Ambulation Assistive Device: No device (11/11/231426) Distance in feet:: 200 (11/11/231426) Level of Assistance: Supervision (Please Comment) (11/11/231426) Bed Mobility Supine-Sit: Independent (11/11/231426) OT Transfers Sit-Stand: Supervision (Please comment) (11/11/231426) Stand-Sit: Supervision (Please comment) (11/11/231426) Toilet: Supervision (Please comment) (11/11/231426) Balance Sit (Static): Good (11/11/231426) Sit (Dynamic): Good (11/11/231426) Stand (Static): Fair (11/11/231426) Stand (Dynamic): Fair (11/11/231426) Alarm Status Patient positioned in: Chair (11/11/231426) With: Call jean baptiste in reach (11/11/231426) Patient and Family Goals: to get well and to return home Patient Education Education Topic: Role of OT;Plan of care goals (11/11/231426) Review of Precautions: Safety;Fall (11/11/231426) Education Provided to: Patient (11/11/231426) Response to Education: Receptive and agreeable to education (11/11/231426) Barriers to learning: Medical status (11/11/231426) Preferred learning method: Combination (11/11/231426) Treatment Provided: Evaluation Moderate Complexity 18 minutes - [id number]: Patient was cooperative and alert during treatment session. Moderate complexity evaluation performed and 3-5 activity limitations were identified, including ADL deficit, functional mobility deficit, bed mobility deficit, decreased strength, decreased endurance, and impaired balance. Minimal or moderate modification of the functional task was necessary to complete the evaluation. Deficits Requiring O.T. Treatment: Deficits requiring O.T. treatment needs: ADL/self-care;Balance;Endurance;Functional mobility;Safety;Upper extremity strength;Weakness (11/11/231426) Goals: Bathing: Upper: independent (pt does 100%). Lower: independent (pt does 100%) Dressing: Upper: independent (pt does 100%). Lower: independent (pt does 100%). Bed Mobility with: Supine to Sit: independent (pt does 100%) Sit to supine: independent (pt does 100%). Transfers with: Toilet: modified independent (with device or slow) Bed to Chair/Wheelchair: modified independent (with device or slow). Demonstrates standing tolerance at: 10 Minutes. Demonstrates toileting at independent (pt does 100%) Goal Time Frame: 1-10 sessions Assessment: Ms. Feliciano was admitted to [facility] with acute on chronic respiratory failure with hypoxia. On eval, pt was A&Ox4. She demonstrated functional transfers and ambulation (no AD) with SPV. Pt also completed LB dressing (slipper socks), toileting, and sink level grooming task with SPV. Pt is below her functional baseline, but notes that she has family assistance if needed. Would consider home with post-acute care services which may include outpatient therapy or home health. The level of care will be determined in collaboration with the patient, family/caregiver, and care team members. AM-PAC score: 19. A portion of this AM-PAC assessment was not scored based on functional assessment, but rather by clinical decision making based on current findings and/ or prior level of function. Please refer to future OT AM-PAC calculations of functional ability as they become available. Treatment Plan: Safety, Bed mobility training, Functional Ambulation, Transfer training, Upper extremity strengthening, Balance activities, ADL training, and Endurance. Anticipated Frequency (on eval): 1 to 3 times per week (11/11/231426) AM-PAC Help From Another Person Eating Meals: None (11/11/231426) Help From Another Person Taking Care of Personal Grooming: A little (11/11/231426) Help From Another Person To Put On/Take Off Upper Body Clothing: A little (11/11/231426) Help From Another Person To Put On/Take Off Lower Body Clothing: A little (11/11/231426) Help From Another Person Toileting: A little (11/11/231426) Help From Another Person Bathing: A little (11/11/231426) OT AM-PAC Score: 19 (11/11/231426) OT AM-PAC t-Scale Score: 40.22 (11/11/231426) HLM (Highest Level of Mobility) Goal: Level 7 walk 25 feet or more (11/11/23 1305) * Xiomara Correa PT - 11/11/2023 1:05 PM ESTAssociated Order(s): ADULT PHYSICAL THERAPY CONSULT IP GENERAL EVALUATION - Physical Therapy [facility] [id number] Name: Lillian Feliciano Location: [facility] [id number] Date: 11/11/2023 Time: 1305 Lillian Feliciano is a/an 88 year old female. Patient Status: Inpatient Insurance: Payor: [employer] MEDICARE ADVANTAGE Plan: [email or web address] PPO Product Type: *No Product type* Payor: [employer] CLARICE Plan: [employer] [facility] Product Type: HMO Patient Seen: at bedside, nursing cleared patient for therapy Patient Identified By: Name, ID Band and Date Patient presents with HPI of the following, per MD note, "HPI: This is an 88 yo woman with below pmh that includes jhtn, chronic diastolic chf, chronic leg edema, dm2, a-fib and on anti-coagulation. She came to ED tonight withy complaint of worsening dyspnea and having to stop after a few steps to catch her breath. She normally doesn't use oxygen at home. She was observed with pursed lip breathing and received lasix in ED. She was recommended for admission. When I came to interview patient her BP was 185/113; patient acknowledged that her BP can be high when she visits the doctor. She denies chest pain and felt less dyspneic on supplemental oxygen. No productive cough, confusion, pain." Diagnosis: weakness, gait abnormality (11/11/23 1305) Status of treatment: OOB evaluation completed (11/11/23 1305) Orders: PT evaluation and treatment (11/11/23 1305) Weight Bearing Status: Weight bearing as tolerated (11/11/23 1305) Precautions: Safety;Falls (11/11/23 1305) Total Treatment Time--free text: 40 (11/11/23 1305) Past Medical History: Past Medical History: Diagnosis Date A-fib (FORM[facility]LY [facility]) Asthma, mild persistent Critical limb ischemia of left lower extremity with autologous bypass graft ([facility]) 12/24/2022 DM type 2, goal A1c below 7 Hyperlipidemia Hypertension ICD (implantable cardioverter-defibrillator) in place Myocardial infarction acute (HCC) 11/24/2010 Ventricular fibrillation arrest, Possible Takotsubo syndrome Nonischemic cardiomyopathy (HCC) Takotsubo cardiomyopathy Past Surgical History: Past Surgical History: Procedure Laterality Date CORONARY ANGIOGRAPHY W/LEFT HEART CATH 12/04/2010 CORONARY ANGIOGRAPHY W/LEFT HEART CATH [place] [facility] [place]ONARY ANGIOGRAPHY W/LEFT HEART CATH Right 11/01/2022 CORONARY ANGIOGRAPHY W/LEFT HEART CATH performed by Kaden Armstrong DO [place] [facility] [place]LECTROP[place]SI[place] EVALUATION 12/07/2010 ICD IMPLANT DEVICE/LEADS TESTING performed by STORM, RAPHAEL H at [facility] [place] INFORMATION Bilateral tubal INSERT/REPLACE DEFIBRILLATOR W/TRANSVERSE LEAD(S) Left 11/27/2010 Medtronic single chamber PERICARDIOCENT INTL/HOSP ONLY Left 11/02/2022 PERICARDIOCENTESIS performed by Dinora Bingham MD at [facility] [place] REMOVE CATARACT, INSERT LENS PROSTH Left 01/04/2023 EXTRACAPSULAR CATARACT REMOVAL WITH INTRAOCULAR LENS performed by Christian Woo DO at OR [facility] REMOVE CATARACT, INSERT LENS PROSTH Right 01/28/2023 EXTRACAPSULAR CATARACT REMOVAL WITH INTRAOCULAR LENS performed by Christian Woo DO at OR [facility] SYNTH BYPASS, FEMORAL-POP Left 12/23/2022 BYPASS GRAFT OTHER THAN VEIN FEMORAL POPLITEAL performed by Misael Reese MD [place] [facility] [place] THROMB ART/VENOUS GRAFT W/REVI Left 12/23/2022 THROMBECTOMY ARTERIAL VENOUS GRAFT WITH REVISION performed by Misael Reese MD [place] [facility] [place] Subjective: N/A Social History/Disposition Lives with: Alone (11/11/23 130) Assistance available: Yes (daughter and granddaughters assist as needed) (11/11/23 1305) Dwelling type: Apartment ([facility], 3rd floor) (11/11/23 130) Entry steps: 4 (with BHR at back entrance from parking lot, which patient uses) (11/11/23 130) Inside steps: Elevator (11/11/23 1305) Bedroom location: 1st floor (11/11/23 1305) Bath location: 1st floor full bath (11/11/23 130) Prior Level of Function Reported by: Patient (11/11/23 130) Ambulation: Ambulatory without device (11/11/23 1305) Devices at home: Rolling walker;Rollator;Shower chair;Grab bars;Wheelchair;Straight cane (11/11/23 1305) Observations Consciousness: Alert (11/11/23 1305) Orientation: Oriented times 4 (11/11/23 130) Psychosocial: Patient can communicate basic needs;Patient can converse in a social setting (11/11/23 130) Other Findings: No (11/11/23 1305) Sitting Posture: Rounded shoulders (11/11/23 1305) Standing Posture: Rounded shoulders (11/11/23 1305) Pain: No complaints of pain Range of Motion Range of Motion: WNL (11/11/231304) Strength Assessment Strength Assessment: WNL (11/11/231304) P.T. Bed Mobility Supine-Sit: Independent (11/11/231304) Sit-Supine: Independent (11/11/231304) Transfers Sit-Stand: Independent (11/11/231304) Stand-Sit: Independent (11/11/231304) W/C-Bed/Mat: Independent (11/11/231304) Ambulation: Distance ambulated (feet): 625 Assistive Device: No device Assist: Supervision Stair Training: Number of stairs: 8 Number of handrails: LHR Level of Assistance: supervision Balance Sit (Static): Good (11/11/231304) Sit (Dynamic): Good (11/11/231304) Stand (Static): Fair (11/11/231304) Stand (Dynamic): Fair (11/11/231304) Patient and or Family Goal(s): to get well and to return home Patient Education Review of Precautions: Safety;Fall (call jean baptiste) (11/11/231304) Safety Awareness: Patient can communicate basic needs;Patient demonstrates carryover of insight during functional tasks;Patient verbalizes insight of current deficits (11/11/231304) Preferred learning method: Combination (11/11/231304) Barriers to learning: Medical Status (11/11/231304) Method of Education: Verbalized to patient;Demonstrated to patient (11/11/231304) Topic of Education: Safety with mobility, Goals/plan of care, Stair training, Fall prevention, and d/c recommendations Method of Education: Verbal discussion and explanation provided to patient regarding topics mentioned above: verbalized understanding and or agreement of this information Treatment Provided: Therapeutic Activities 15 minutes: bed mobility training transfer training toilet transfer training D/c recommendations Gait Training 15 minutes: gait training with rolling walker stair training Evaluation Moderate Complexity 15 minutes - [id number]: Patient was cooperative, pleasant, motivated, and alert during treatment session. Moderate complexity evaluation performed and 1-2 personal factors or comorbidities were identified that will impact plan of care, including multiple steps at home, lives alone at home, and multiple orthopedic injuries. Patient presents with limitations in transfers,gait, elevations, balance, endurance, and safety, which will impact plan of care. These limitationswill be addressed by the goals set for this patient. Alarm Status Patient positioned in: Bed (11/11/23 1305) With: Call jean baptiste in reach (11/11/23 130) Treatment Status: Treatment at bedside (11/11/23 130) Goals: Demonstrate Stairclimbing: Number of steps: 4, two rails, and Level of Assistance: independent (pt does 100%) Demonstrate ambulation 150 feet independent (pt does 100%) Increase Safety: with all mobility tasks to decrease fall risk Time Frame: 1-8 visits Assessment: Patient presents with minimal functional deficits at this time. Currently demonstrates independence with bed mobility/functional transfers and supervision for ambulation without use of AD. Patient was also able to negotiate 10 stairs with LHR and supervision. No LOB or safety concerns noted throughout session. Patient denied having any onset of symptoms. Verbalizes appropriate level of insight into current functional deficits and demonstrates overall good safety awareness. PT AM PACis 22, Would consider home with post-acute care services which may include outpatient therapy or home health. The level of care will be determined in collaboration with the patient, family/caregiver,and care team members. Will cont to provide skilled PT services while at [facility]. Deficits requiring P.T. treatment needs: Safety;Mobility;Balance;Weakness (11/11/23 130) Equipment Needs: Equipment needs: No device (11/11/231304) Treatment Plan: Gait training, Elevation training, ROM exercises: , Strengthening exercises: , Balance activities, and Educate on safety with all mobility tasks to decrease fall risk Anticipated Frequency (on eval): (3-6x/wk) (11/11/23 130) AM PAC Score with Stairs: 22 * Casi Suh CRNP - 11/10/2023 10:54 AM ESTAssociated Order(s): Cardiology Consult IP Cardiology CONSULT [facility] [id number] Name: Lillian Feliciano Location: [address] Date: 11/10/2023 Time: 10:54 AM Cardiology Consult IP Consult performed by: Casi Suh CRNP Consult ordered by: Yuri Hall CRNP REQUESTING SERVICE: Hospitalist REASON FOR CONSULT: CHF HPI: 88-year-old female seen in consultation today in regard to acute on chronic CHF exacerbation. She presented to the emergency room yesterday for evaluation of worsening dyspnea and decreased activity tolerance. She has a known past medical history of hypertension, diastolic CHF, type 2 diabetes, permanent atrial fibrillation on AC, STEMI with normal coronaries, VFib cardiac arrest status post single-chamber ICD, pericardial effusion requiring pericardiocentesis, and PAD. She did undergo nuclear stress test earlier this month that indicated reversible ischemia with significantly reduced ejection fraction. PAST MEDICAL HISTORY: Past Medical History: Diagnosis Date A-fib (FORM[facility]LY [facility]) Asthma, mild persistent Critical limb ischemia of left lower extremity with autologous bypass graft ([facility]) 12/24/2022 DM type 2, goal A1c below 7 Hyperlipidemia Hypertension ICD (implantable cardioverter-defibrillator) in place Myocardial infarction acute ([facility]) 11/24/2010 Ventricular fibrillation arrest, Possible Takotsubo syndrome Nonischemic cardiomyopathy ([facility]) Takotsubo cardiomyopathy PAST SURGICAL HISTORY: Past Surgical History: Procedure Laterality Date CORONARY ANGIOGRAPHY W/LEFT HEART CATH 12/04/2010 CORONARY ANGIOGRAPHY W/LEFT HEART CATH performed [place] TE[place]ORO LEWIS [place] [facility] [place] CORONARY ANGIOGRAPHY W/LEFT HEART CATH Right 11/01/2022 CORONARY ANGIOGRAPHY W/LEFT HEART CATH performed by Kaden Armstrong DO [place] [facility] [place]ALUATION 12/07/2010 ICD IMPLANT DEVICE/LEADS TESTING performed by RAPHAEL MITTAL at [facility] [place] INFORMATION Bilateral tubal INSERT/REPLACE DEFIBRILLATOR W/TRANSVERSE LEAD(S) Left 11/27/2010 Medtronic single chamber PERICARDIOCENT INTL/HOSP ONLY Left 11/02/2022 PERICARDIOCENTESIS performed by Dinora Bingham MD at [facility] [place] REMOVE CATARACT, INSERT LENS PROSTH Left 01/04/2023 EXTRACAPSULAR CATARACT REMOVAL WITH INTRAOCULAR LENS performed by Christian Woo DO at OR [facility] REMOVE CATARACT, INSERT LENS PROSTH Right 01/28/2023 EXTRACAPSULAR CATARACT REMOVAL WITH INTRAOCULAR LENS performed by Christian Woo DO at OR [facility] SYNTH BYPASS, FEMORAL-POP Left 12/23/2022 BYPASS GRAFT OTHER THAN VEIN FEMORAL POPLITEAL performed by Misael Reese MD [place] [facility] [place] THROMB ART/VENOUS GRAFT W/REVI Left 12/23/2022 THROMBECTOMY ARTERIAL VENOUS GRAFT WITH REVISION performed by Misael Reese MD [place] [facility] [place] FAMILY HISTORY: Family History Problem Relation Age [...] known allergies. ROS: Review of Systems Constitutional: Positive for activity change. Negative for fatigue and unexpected weight change. Eyes: Negative for visual disturbance. Respiratory: Positive for shortness of breath. Negative for wheezing. Cardiovascular: Positive for leg swelling. Negative for chest pain and palpitations. Gastrointestinal: Negative for blood in stool, constipation, diarrhea, nausea and vomiting. Genitourinary: Negative for hematuria. Musculoskeletal: Negative for arthralgias and gait problem. Skin: Negative for wound. Neurological: Negative for dizziness and syncope. PHYSICAL EXAMINATION: Most Recent Vital Signs: BP: 136 mmHg/52 mmHg (11/10/23725) Pulse: 72 (11/10/23 0753) Temp: 37.11 C (11/10/23725) Temp Summary: Temp Min: 36.7 C (98.1 F) Max: 37.1 C (98.8 F) SpO2: 100 % (11/10/23748) O2 flow rate: 2 L/MIN (11/10/23748) Supplemental O2 Delivery: Nasal Cannula (11/10/23748) Physical Exam Vitals and nursing note reviewed. Constitutional: General: She is awake. She is not in acute distress. Appearance: Normal appearance. She is well-developed. She is not ill-appearing. HENT: Head: Normocephalic and atraumatic. Eyes: General: No scleral icterus. Extraocular Movements: Extraocular movements intact. Conjunctiva/sclera: Conjunctivae normal. Pupils: Pupils are equal, round, and reactive to light. Neck: Thyroid: No thyromegaly. Vascular: No carotid bruit or JVD. Cardiovascular: Rate and Rhythm: Normal rate. Rhythm irregularly irregular. Pulses: Normal pulses. Carotid pulses are 2+ on the right side and 2+ on the left side. Radial pulses are 2+ on the right side and 2+ on the left side. Posterior tibial pulses are 2+ on the right side and 2+ on the left side. Heart sounds: Normal heart sounds, S1 normal and S2 normal. No murmur heard. Pulmonary: Effort: Pulmonary effort is normal. No respiratory distress. Breath sounds: Normal breath sounds. No wheezing, rhonchi or rales. Abdominal: General: Bowel sounds are normal. There is no distension. Palpations: Abdomen is soft. There is no mass. Tenderness: There is no abdominal tenderness. Musculoskeletal: General: No swelling. Cervical back: Neck supple. Right lower leg: No edema. Left lower leg: No edema. Skin: General: Skin is warm and dry. Capillary Refill: Capillary refill takes less than 2 seconds. Findings: No rash or wound. Neurological: General: No focal deficit present. Mental Status: She is alert and oriented to person, place, and time. Psychiatric: Attention and Perception: Attention and perception normal. Behavior: Behavior is cooperative. Judgment: Judgment normal. Current Facility-Administered Medications Medication Dose Route Frequency Provider Acetaminophen (Tylenol) tab 650 mg 650 mg Oral Q6H PRN Yuri Hall CRNP Apixaban (Eliquis) tab 5 mg 5 mg Oral BID(AM/PM) Yuri Hall CRNP aspirin chew tab 81 mg 81 mg Oral Daily(AM) Yuri Hall CRNP Carvedilol (Coreg) tab 12.5 mg 12.5 mg Oral BID (AM/PM meals) Yuri Hall CRNP colchicine tab 0.6 mg 0.6 mg Oral Daily(AM) Yuri Hall CRNP dextrose 50 % inj 25 mL 25 mL IV Push PRN Yuri Hall CRNP dextrose 50 % inj 50 mL 50 mL IV Push PRN Yuri Hall CRNP Docusate Sodium (Colace) cap 100 mg 100 mg Oral BID PRN Yuri Hall CRNP Empagliflozin (Jardiance) tab 25 mg 25 mg Oral Daily(AM) Yuri Hall CRNP fluticasone furoate-vilanterol (BREO ellipta) 200-25 MCG/ACT inhaler 1 Puff 1 Puff Inhalation Daily(AM) Yuri Hall CRNP Furosemide (Lasix) inj 60 mg 60 mg IV Push BID (0900,1600) Antonio Barajas MD glucagon (Glucagen) inj 1 mg 1 mg Intramuscular PRN Yuri Hall CRNP Glucose (Glutose 15) 40 % gel 15 g of glucose 15 g of glucose Oral PRN Yuri Hall CRNP Glucose (Glutose 15) 40 % gel 30 g of glucose 30 g of glucose Oral PRN Yuri Hall CRNP glucose chew tab 16 g 16 g Oral PRN Yuri Hall CRNP insulin aspart (NovoLOG) inj Subcutaneous With Meals and HS Yuri Hall CRNP Ipratropium-Albuterol (Combivent Respimat) inhaler 1 Puff 1 Puff Inhalation Resp QID Antonio Barajas MD Nitroglycerin (Nitro-Bid) 2 % ointment 1 Inch 1 Inch Transdermal Once Sallade, Teodoro Gallegos DO omeprazole (PriLOSEC) cap 20 mg 20 mg Oral Daily(AM) Yuri Hall CRNP oxygen GAS Inhalation Oxygen Yuri Hall CRNP sodium chloride 0.9 % flush peripheral yanet 3 mL 3 mL IV Push Q Shift Yuri Hall CRNP sodium chloride 0.9 % flush/inj 3 mL 3 mL IV Push PRN Yuri Hall CRNP Results Labs & Imaging Reviewed Below: Device Interrogation: 10/29/23 DRAWER IN DOBBY LOOM 1.78% A Fib [place] ECG 11/10/23 A Fib 90 bpm QTc 452 ms 10/14/23 A Fib Septal Infarct 66 bpm QTc 434 ms 07/30/23 A Fib, PVCs 84 bpm QTc 441 ms 12/23/22 A Fib, PVC 93 bpm QTc 469 ms Echocardiograms 12/24/22 The examination is adequate to evaluate [...] attenuation. LABS: Labs reviewed as indicated below: Latest Reference Range & Units 11/10/23 00:43 Temperature C 37.0 pH, Venous 7.320 - 7.430 units 7.377 pCO2, Venous 40.0 - 60.0 mmHg 51.5 pO2, Venous 25.0 - 50.0 mmHg 34.4 O2 Content, Venous 7.0 - 18.0 %vol 8.4 Oxyhemoglobin, Venous 40.0 - 85.0 % total Hgb 52.6 Base Excess, Venous -2.0 - 2.0 mmol/L 4.0 (H) Carboxyhemoglobin, Whole Blood <=1.5 % total Hgb 1.0 Methemoglobin, Whole Blood <=1.5 % total Hgb 0.5 Reduced Hemoglobin, Venous % total Hgb 45.9 Troponin T, High Sensitivity <=14 ng/L 13 BNP, NT-Pro <300 pg/mL 1,492 (H) Sodium 135 - 146 mmol/L 144 Potassium 3.5 - 5.1 mmol/L 4.1 Chloride 98 - 107 mmol/L 107 CO2 22 - 32 mmol/L 26 BUN 6 - 20 mg/dL 19 Creatinine 0.5 - 1.0 mg/dL 1.0 Estimated Glomerular Filtration Rate >=60 mL/min 55 (L) Anion Gap 7 - 15 mmol/L 11 Glucose 70 - 120 mg/dL 149 (H) Calcium 8.4 - 10.2 mg/dL 9.4 Magnesium 1.5 - 2.6 mg/dL 2.2 Bicarbonate, Whole Blood 23.0 - 31.0 mmol/L 29.6 Protein 6.0 - 8.3 g/dL 6.1 INR 0.8 - 1.2 1.2 Prothrombin Time 11.6 - 15.2 seconds 15.4 (H) CBC Rpt ! CBC WITH WBC DIFFERENTIAL Rpt ! WBC 4.00 - 10.80 K/uL 6.70 HGB 12.0 - 15.3 g/dL 11.5 (L) Hemoglobin, Whole Blood 12.0 - 15.3 g/dL 11.3 (L) HCT 36.0 - 45.2 % 37.3 MCV 81.5 - 97.5 fL 80.0 PLT 140 - 400 K/uL 125 (L) Absolute Neutrophils 1.80 - 7.70 K/uL 4.34 Absolute Lymphocytes 1.00 - 4.80 K/ul 1.54 Absolute Monocytes 0.00 - 1.10 K/uL 0.71 Absolute Eosinophils 0.00 - 0.70 K/uL 0.09 Absolute Basophils 0.00 - 0.20 K/uL 0.01 Albumin 3.8 - 5.0 g/dL 3.5 (L) AST 10 - 35 U/L 187 (H) ALT 10 - 35 U/L 79 (H) Alkaline Phosphatase 35 - 130 U/L 87 Bilirubin, Total <=1.2 mg/dL 0.5 IMAGIN11/10/23 IMPRESSION: No acute findings. IMPRESSION and PLAN: Acute on Chronic Respiratory Failure DM II HTN PAD Hx V Fib Cardiac Arrest, 11/2010 s/p ICD STEMI 11/2010, normal coronaries on cath Permanent A Fib Pericardial effusion s/p pericardiocentesis 10/2022 HLD Hx Acute Limb Ischemia s/p thromboembolectomy 12/24/2022 PAD -patient presented with sudden onset shortness of breath and was noted to be volume overloaded on exam -subsequently admitted for IV diuresis and additional cardiac workup -she underwent nuclear stress test approximately 10 days ago which was significantly abnormal -repeat echocardiogram results pending -continue apixaban, aspirin, furosemide -Please document accurate I&Os -Monitor and replace electrolytes as needed. (Recommend K > 4.0 & Mag > 2.0) -Please record daily weights -2L fluid restriction -2 gm sodium restriction -Please apply compression stockings or phan wraps first thing in the morning and remove at night. Repeat daily. -Encourage patient to elevate lower extremities throughout the day. -atorvastatin held on admission elevated LFTs, would recommend resuming once these improve Patient care discussed and coordinated with Dr. Lipscomb. Please refer to Dr. Lipscomb's notes for further recommendations. RITIKA Bolden Department of Cardiology I spent a total of 45 minutes on the date of service in preparation, delivery, and documentation ofthe care provided to Lillian Feliciano excluding any time spent in the performance of separately billed services. This chart was completed in part utilizing [employer] Speech Voice Recognition Software. Grammatical errors, random word insertions, pronoun errors, and incomplete sentences are an occasional consequence of this system due to software limitations, ambient noise, and hardware issues. Any formal questions or concerns about the content, text, or information contained within the body of this dictation should be directly addressed to the provider for clarification. Associated attestation - Arti Lipscomb DO - 11/10/2023 9:38 PM EST I have reviewed the advanced practitioner's documentation on the date of service referenced in note, and I agree with, and take responsibility for the plan of care. Pt seen in cardiology consultation due to acute on chronic heart failure with preserved Pt reports some atypical chest pains I reviewed the nuclear images the size is on the smaller end in the apex portion that suggests ischemia Her echo images today in interpreted showed EF is normal She does have non cardiovascular disease by cath a year ago which was afterwards she had a large pericardial effusion Pt is not keen on having another cath Troponins are negative so we could potential medical management for now I will reach out to speak things over with her daughter as well For now continue IV lasix and other cardiac medciations Arti Lipscomb DO Department of Cardiology [facility] Cardiology CLARICE Shankar [phone] I spent a total of 45 minutes coordinating, documenting, and providing care for this patient excluding time spent in the performance of separately billed services or time spent by another provider/QHP. documented in this encounter Nursing Notes * Azalia Mcdonald RN - 11/12/2023 12:27 PM EST Appointments: Please call [facility] office Tuesday November 14, 2023 to schedule a 3 to 5 day hospital follow upappointment. Dr. Isrrael Bolivar [phone] [facility] Please call the Cardiology office Tuesday November 14, 2023 to schedule a 1 week appointment. Cardiology [phone] [place] [address] 4th Floor @ [facility] * Mili Choudhary RN - 11/12/2023 12:20 PM EST 1206- Pt dressed self independently for discharge, and gathered all of her belongings. IV site removed. Pt instructed that d/c paperwork is still being worked on and she wishes to wait until daughterarrives to go over the d/c education anyway. 1245- Discharge instructions complete and provided to pt and daughter. Pt's home inhaler returned from pharmacy. Pt taken to exit via wheelchair with this RN. * Raul Gandhi RN - 11/10/2023 3:38 AM EST VIRTUAL RN [facility] [phone] Name: Lillian Feliciano Location: [facility] [id number] Date: 11/10/2023 Time: 3:38 AM I completed the Admission Navigator. The patient was in the hospital. I was not in a hospital or clinic location. After connecting through [employer], the patient was identified by name and date of and / or wristband checked. Patient (or authorized legal contact representative) was then informed that this was a Virtual Nurse visit and was being conducted confidentially over secure lines. I used a headset and other methods to ensure confidentiality for the patient. Patient acknowledged consent and understanding of privacy and security of the Virtual Nurse visit. I presented the opportunity for the patient or authorized legal contact representative to ask any questions regarding the visit today. The patient or authorized legal contact representative agreed to participate. * Stu Claudio RN - 11/10/2023 3:15 AM EST Pt arrived to floor at approx. 0315 via wheelchair. Pt A+Ox4. Pt ambulated to bed independently under this RN's supervision. Steady gait. Resting in bed peacefully. Pt calm and cooperative with staff. * Stu Claudio RN - 11/10/2023 3:15 AM EST Dual Licensed Skin Assessment completed by Yisel Streeter RN and Stu Dueñas RN. The patient is/has a N/A Skin Breakdown (includes non blanchable erythema): No documented in this encounter ED Notes * Teodoro Beckett, - 11/10/2023 12:42 AM EST Images from the original note were not included. HISTORY OF PRESENT ILLNESS Lillian Feliciano is a 88 year old female who presents to the ED for evaluation of Short of Breath.The patient was seen at . Patient is a 88-year-old female with a past medical history of atrial fibrillation currently anticoagulated on Eliquis, asthma, automatic implantable cardioverter-defibrillator in-situ, hypertension, diastolic heart failure, pericardial effusion presenting today with shortness of breath. Patient reports that she has been struggling with shortness of breath for quite sometime now. She states that over the last 2 days it has gotten significantly worse. She states that she can not catch her breath especially while walking. She states that she does live alone and does not use any supplemental oxygen at home. She states that she believes her lower legs have gotten somewhat more swollen as well. She states that they are normally red and has been for a while. She denies any fevers, chills chest pain, abdominal pain, nausea, vomiting, diarrhea, constipation, urinary symptoms such as urinary burning, urinary frequency, or blood in the urine. She denies any dark appear ing stools blood in the stool. Per EMS, patient is now taking 3 tablets of Eliquis as opposed to 4. Short of Breath Review of Systems Respiratory: Positive for shortness of breath. Cardiovascular: Positive for leg swelling. The patient's allergies, past history, and medications were reviewed. PHYSICAL EXAM Initial Vitals (see all): BP 184/139 | Pulse 87 | Resp 48 | Temp 98.6 | O2 93 %, Nasal Cannula | Weight 61.24 kg | Height 167.6 cm | BMI 21.79 kg/m2 Initial Pain Assessment (see all): 0 (no pain)/10 ([facility] Adult Scale 0-10) Physical Exam Vitals reviewed. Constitutional: General: She is not in acute distress. Appearance: Normal appearance. She is ill-appearing. She is not toxic-appearing or diaphoretic. HENT: Head: Normocephalic and atraumatic. Mouth/Throat: Pharynx: Oropharynx is clear. Eyes: Extraocular Movements: Extraocular movements intact. Pupils: Pupils are equal, round, and reactive to light. Cardiovascular: Rate and Rhythm: Normal rate and regular rhythm. Pulses: Normal pulses. Heart sounds: Normal heart sounds. Pulmonary: Effort: Pulmonary effort is normal. Tachypnea present. No accessory muscle usage. Breath sounds: No stridor. No decreased breath sounds, wheezing, rhonchi or rales. Chest: Chest wall: No crepitus. Abdominal: Palpations: Abdomen is soft. Tenderness: There is no abdominal tenderness. There is no guarding. Musculoskeletal: General: Normal range of motion. Right lower le+ Pitting Edema present. Left lower le+ Pitting Edema present. Legs: Comments: Area of erythema noted over the anterior aspect bilateral lower legs. Nontender to palpation. No open wounds or drainage noted. Skin: General: Skin is warm. Capillary Refill: Capillary refill takes less than 2 seconds. Coloration: Skin is pale. Skin is not cyanotic. Findings: No ecchymosis or erythema. Nails: There is no clubbing. Neurological: General: No focal deficit present. Mental Status: She is alert and oriented to person, place, and time. Psychiatric: Mood and Affect: Mood normal. Behavior: Behavior normal. PROCEDURES AND TREATMENTS ED Orders | ED Results MEDICAL DECISION MAKING Nursing notes and vital signs were reviewed. ED Course as of 11/10/23 0305 Silva Nov 10, 2023 0053 XR Chest 1 View IMPRESSION: No acute findings. [BK] 0053 D/w AP -- SOB episodically, on eliquis for AFIB, hx HF and pericardial effusion [TS] 0057 CBC with WBC Differential(!) Somewhat improved hemoglobin when compared to previous hemoglobin 3 weeks ago [BK] 0059 EKG My interpretation of EKG today reveals atrial fibrillation with occasional PVCs at a rate of 90 beats per minute. No obvious ST segment elevation or depression. [BK] 0108 POCUS wo pericardial effusion, liekly flui on the lungs, no large pleural effusion [TS] 0113 Respiratory Pathogen Panel, PCR [BK] 0125 BNP, NT-PRO(!) [BK] 0127 Troponin T, High Sensitivity [BK] 0139 Magnesium [BK] 0143 EKG interpreted by me, atrial fibrillation rate 90, normal axis/intervals. Artifact in V2. No ischemia noted. [TS] 0145 Similar to last [TS] 0151 SOB w ambulation from bed 01 to RR [TS] 0151 Patient reports short of breath over the last 2 days increased with activity. Denies chest pain or abdominal pain. Does report some lightheadedness as well. Lower extremity swelling is getting worse despite her diuretic. She is taken her anticoagulation. No discomfort to the extremities. She is chronic erythema to the anterior shins. No smoking/COPD history [TS] 0202 Spoke with the hospitalist, Dr. Banda, who took a look at the patient's chart and states that he believes that this possibly is her baseline. He recommends that we should try to walk her further without the oxygen to see how she does. I asked him to come down to evaluate the patient. [BK] 0243 Will add nitro paste for BP and HF, admit to [facility] [TS] 0246 Updated granddaughter w pt permission [TS] ED Course User Index [BK] Flaquita Fairchild PA-C [TS] Teodoro Beckett DO Differential Diagnoses Based on my history, physical exam, and evaluation, the differential includes, but is not limited, to the following diagnoses: Heart failure exacerbation, COPD exacerbation, asthma exacerbation, ACS,pneumonia, bronchitis, viral syndrome. Patient is a 88 year old female presenting with shortness of breath. On arrival, patient had an elevated blood pressure, increased respiratory rate, and O2 saturation 93%. Patient was afebrile. During my initial evaluation, patient did drop O2 saturation while answering my questions to 88%. I did place her back on 2 L nasal cannula. EKG demonstrates atrial fibrillation with occasional PVCs at a rate of 90 beats per minute. Labs reviewed, and significant for elevated BNP, negative troponin, decreased glomerular filtration rate, elevated liver enzymes, negative respiratory panel, slight decrease in hemoglobin however slightly improved when compared to previous hemoglobin levels. I did review patient's liver enzymes history and it appears that she does have a history of intermittent elevation. Chest x-ray was ordered due to concern for signs of cardiomegaly or fluid overload as well as cardiopulmonary etiology of symptoms, which demonstrated no acute findings as interpreted by myself/Radiology. 60 mg IV Lasix was given for obvious fluid overload and shortness of breath which did not improve her symptoms. IV Lasix did somewhat improve her blood pressure to a goal of around 25% decrease of the initial elevated blood pressure on her arrival. During ambulatory trial to the bathroom (10feet), the nurse had to limit the walk at that length due to the patient being short of breath and n eeding 2 L nasal cannula to originally get to the bathroom. She was unable continue walking past her room without any supplemental oxygen due to being short of breath. For these reasons, I sent a message with the hospitalist team regarding admission for acute heart failure exacerbation. Amount and/or Complexity of Data Reviewed Labs: ordered. Decision-making details documented in ED Course. Radiology: ordered. Decision-making details documented in ED Course. ECG/medicine tests: ordered. Decision-making details documented in ED Course. Risk Prescription drug management. Decision regarding hospitalization. Clinical Impressions Shortness of breath Heart failure (HCC) Disposition Admitted. I discussed the management of this patient with the admitting provider and I made a decision to admit the patient. Admission Order Ordered Status . 11/10/23 0243 Admit for Inpatient Services (incl ZPO) ONCE Ordered Teodoro Beckett was the attending physician who supervised the care of this patient. Flaquita Fairchild PA-C ATTENDING ATTESTATION I have discussed the patient's management with the provider listed above and agree with the note, findings, and plan of care. I personally made/approved the management plan and take responsibility for patient management. In summary, this 88-year-old female who presents for shortness of breath. Working diagnosis is heart failure over infection, coronary syndrome, arrhythmia, COPD, among others. Was also significantly hypertensive. Held nitroglycerin. Was given Lasix. New oxygen. Rales to the mid cohn. Mildly dyspneic in conversation, very dyspneic and short of breath walking to and from the bathroom which is a very short distance. Plus one DP pulses +1 +1 radial pulses, no signs of abnormal/asymmetric extremity perfusion. Is taking her anticoagulation. Admit, telemetry * Lidia Rodriguez RN - 11/10/2023 12:10 AM EST ALS Report: Pt is from home, c/o intermittent SOB all day. EMS states that the pt had increased work of breathing and pursed lip breathing on their arrival. History of a fib, pt is on Eliquis, recently switched from 4 pills a day to 3. 93% on RA, put on 3L SpO2 up to 100%. 20 gauge PIV in left forearm. BP 177/99 for EMS. documented in this encounter Miscellaneous Notes * Pt Handout (on AVS) - Azlaia Mcdonald RN - 11/12/2023 12:26 PM EST DM91 Tracking Symptoms of Heart Failure If [...] status over the phone. Last Reviewed Date: 2023 [employer]. All rights reserved. This information is not intended as a substitute for professional medical care. Always follow your healthcare professional's instructions. * Pt Handout (on AVS) - Azalia Mcdonald RN - 11/12/2023 12:26 PM EST DM58 Heart Failure and Physical Activity If [...] is right for you. Last Reviewed Date: 03/19/202319992498-8700 [employer]. All rights reserved. This information is not intended as a substitute for professional medical care. Always follow your healthcare professional's instructions. * Pt Handout (on AVS) - Azalia Mcdonald RN - 11/12/2023 12:25 PM EST Images from the original note were not included. [id number] Torsemide Oral Tablet Brands: Chelsie Manzano Uses This medicine is used for the following purposes: high blood pressure swelling Instructions This medicine may be taken with or without food. This medicine will work best if you take it at about the same time every day. Keep the medicine at room temperature. Avoid heat and direct light. This medicine will make you urinate more. If you have difficulty passing urine, please tell your doctor. Tell your doctor if you have severe or persistent sweating, diarrhea or vomiting. These can increase your risk of a serious side effect. It is important that you keep taking [...] about all medicines taken. Include prescription and nnhz-zzl-[id number] medicines, vitamins, and herbal medicines. Speak with your doctor or pharmacist before starting or stopping any medicine. Tell your doctor if symptoms do not get better or if they get worse. Talk to your doctor before taking other medicines, including aspirins and ibuprofen containing products. Speak to your doctor about which medicines are safe to use while you are on this medicine. This medicine may affect your blood sugar levels. If you have diabetes, talk to your doctor before changing the dose of your diabetes medicine. Keep all appointments for medical exams and tests while on this medicine. Cautions Tell your doctor and pharmacist if you ever had an allergic reaction to a medicine. Do not use the medication any more than instructed. This medicine may cause dizziness or fainting, especially after exercising or in hot weather. Be very careful when standing or sitting up quickly. Your ability to stay alert or to react quickly may be impaired by this medicine. Do not drive or operate machinery until you know how this medicine will affect you. Please check with your doctor before drinking alcohol while on this medicine. Contact your doctor if you notice a change in the amount or darkening of your urine. Tell the doctor or pharmacist if you are , planning to be , or . Do not share this medicine with anyone who has not been prescribed this medicine. Side Effects The following is a list of some common side effects from this medicine. Please speak with your doctor about what you should do if you experience these or other side effects. constipation dizziness dry mouth headaches lightheadedness increased urinary frequency Call your doctor or get medical help right away if you notice any of these more serious side effects: confusion drowsiness or sedation ear problems (ringing in the ears, hearing loss) fainting numbness or tingling in hands and feet fast, irregular, or slow heartbeat muscle cramps or weakness nausea and vomiting persistent or unusual thirst unusual or unexplained tiredness or weakness urinating less often difficulty or discomfort urinating A few people may have an allergic reaction to this medicine. Symptoms can include difficulty breathing, skin rash, itching, swelling, or severe dizziness. If you notice any of these symptoms, seek medical help quickly. Extra Please speak with your doctor, nurse, or pharmacist if you have any questions about this medicine. [email or web address] IMPORTANT NOTE: This document tells you briefly how to take your medicine, but it does not tell youall there is to know about it. Your doctor or pharmacist may give you other documents about your medicine. Please talk to them if you have any questions. Always follow their advice. There is a more complete description of this medicine available in Turkish. Scan this code on your smartphone or tablet or use the web address below. You can also ask your pharmacist for a printout. If you have any questions, please ask your pharmacist. The display and use of this drug information is subject to Terms of Use. Copyright(c) 2022 [employer]. [employer]. All rights reserved. This information is not intended as a substitute for professional medical care. Always follow your healthcare professional's instructions. * Care Plan - Elaine Hurtado RN - 11/12/2023 5:11 AM EST Clinical Goal(s): Pt will sleep for at least 4 hours during this shift (11/11/232003) Possible barriers to meeting goal(s)/advancing plan of care: Stress, pain, admitting diagnosis Stability of the patient: Moderately stable - low risk of patient condition declining or worsening Summary regarding today's goal(s): Met: Pt slept for over 4 hours during this shift Recommendations: Continue to implement stress reduction strategies and monitor pain level, providing appropriate interventions as needed. Follow plan of care. * Ancillary Progress Note - Pepe Sánchez Chaplain - 11/11/2023 10:42 AM EST PROGRESS NOTE - Spiritual Care Contact Information [facility]-[address] [id number] Name: Lillian Feliciano Location: [facility] [id number] Date: 11/11/2023 Time: 2:30 PM Presybeterian: No Confucianist Pref [66] Confucianist Affiliations: REASON FOR VISIT: rounding REQUEST RECEIVED FROM: rounding VISIT LENGTH: 7 REQUEST FACTORS (Nature of Situation): Initial Visit FOCUS OF CARE: Patient SPIRITUAL ASSESSMENT: Cathy or Belief System: Did not identify Most Important Need(s) / Concern(s): Helpless and Suffering Sense of Community and/or Confucianist Affiliation: Did not identify Addresses need(s)/concerns(s) and/or lenin through: Family, God/Higher Power SPIRITUAL CARE PROVIDED: [employer] 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 I provided words of comfort and supportive presence. Pt welcomed prayer so I prayed for her needs.Pt states no nondenominational preference. Pt thanked me for visit. * Pt Handout (on AVS) - Bee Lui RN - 11/11/2023 7:34 AM EST Images from the original note were not included. [id number] Left- or Right-Sided Heart Failure The heart is a large muscle that acts as a pump to circulate blood throughout the body. Blood carries oxygen to all of the organs including the brain, muscles, and skin. After your body takes the oxygen out of the blood, the blood returns to the heart. The right side of the heart collects the bloodfrom the body and pumps it to the lungs. In the lungs, it gets fresh oxygen and gives up carbon dioxide. The oxygen-rich blood from the lungs then returns to the left side of the heart, where it is pumped back out to the rest of your body, starting the process all over. Heart failure (HF) occurs when the heart muscle does not function normally. This causes your body to retain fluids or reduce blood flow. This can be caused by several health problems that weaken or stiffen the heart muscle. Heart failure can affect the right or the left side of the heart. It can often involve both sides of the heart over time. Right-sided heart failure When the right side of the heart is failing, it can?t handle the blood it is getting from the rest of the body. This blood returns to the heart through veins. When too much pressure builds up in the veins, fluid leaks out into the tissues. Jay then causes that fluid to move to those parts of the body that are the lowest. So one of the first symptoms of right-side HF can include swelling in the feet and ankles. If the condition gets worse, the swelling can even go up past the knees. Sometimes it gets so severe, the liver and intestines can get congested as well. Left-sided heart failure When the left side of the heart is failing, it can?t handle the blood it gets from the lungs. Pressure then builds up in the veins of the lungs. This causes fluid to leak into the lung tissues. This causes you to feel short of breath, weak, or dizzy. These symptoms are often worse with physical activity, such as when climbing stairs or walking up hills. Lying with your head flat is uncomfortable and can make your breathing worse. This may make sleeping difficult. You may need to use extra pillows to elevate your upper body to sleep well. The same is true when just resting during the daytime. You may also feel weak or tired and have less energy during exertion. Heart failure can have many causes of heart failure. They include: Coronary artery disease High blood pressure Previous heart attack Diabetes Obesity Alcohol abuse Smoking Illegal drug use, such as methamphetamine Family history Inflammatory conditions including infection Unknown cause (idiopathic) Heart failure is usually a long-term (chronic) condition. The purpose of medical treatment is to improve how well the heart pumps and to remove extra water from the body. A number of medicines can help with this, improve symptoms, and prevent the heart from becoming weaker. In certain cases, cardiac procedures or surgery can help to treat heart failure. Sometimes heart failure can become so severe that a device is placed in the heart to help it pump. Or a heart transplant is advised. Another major goal is to better treat the causes of heart failure, such as diabetes and high blood pressure. You may need to make changes in your lifestyle.. Home care Follow these guidelines when caring for yourself at home: Check your weight every day. This is very important because a sudden increase in weight gain could mean the heart failure is getting worse. Keep these things in mind: o Use the same scale every day. o Weigh yourself at the same time every day. Wear similar clothing or no clothes at all. o Make sure the scale is on a hard floor surface, not on a rug or carpet. o Keep a record of your weight every day so your healthcare provider can see it. If you are not given a log sheet for this, keep a separate journal for this purpose. Cut back on the amount of salt (sodium) you eat. Follow your healthcare provider's advice on howmuch salt or sodium you should have each day. o Limit high-salt foods. These include olives, pickles, smoked meats, salted potato chips, and mostprepared foods. o Don't add salt to your food at the table. Use only small amounts of salt when cooking. o Read the labels carefully on food packages to learn how much salt or sodium is in each serving inthe package. Remember that a can or package of food may contain more than 1 serving. So if you eat all the food in the package, you may be getting more salt than you think. Follow your healthcare provider's advice about how much fluid you should have. Be aware that some foods such as soup, pudding, and juicy fruits like oranges or melons contain liquid. You'll need to count the liquid in those foods as part of your daily fluid intake. Your provider can help you with this. Stop smoking. Stop using illegal drugs. Cut back on how much alcohol you drink. Lose weight if you are overweight. The extra weight puts a lot of stress on the heart. Stay active. Talk with your provider about an exercise program that is safe for your heart. Keep your feet elevated to reduce swelling. Ask your provider about support hose to prevent daytime leg swelling. Besides taking your medicine as instructed, an important part of treatment is lifestyle changes. These include diet, physical activity, stopping smoking, and weight control. Improve your diet by including more fresh foods, cutting back on how much sugar and saturated fat you eat, and eating fewer processed foods and less salt. Follow-up care Follow up with your healthcare provider, or as advised. Make sure to keep any appointments that were made for you. These can help better control your heartfailure. You will need to follow up with your provider on a routine basis to make sure your heart failure is well managed. If an X-ray, electrocardiogram (ECG), or other tests were done, you will be told of any new findings that may affect your care. Call 911 Call 911 if you: Become severely short of breath Feel lightheaded, or feel like you might pass out or faint Have chest pain or discomfort that is different than usual, the medicines your doctor told you to use for this don't help, or the pain lasts longer than 10 to 15 minutes You suddenly develop a rapid heart rate When to seek medical advice The following may be signs that your heart failure is getting worse. Call your healthcare provider right away if any of these happen: Sudden weight gain. This means 3 or more pounds in one day, or 5 or more pounds in 1 week. Trouble breathing not related to being active New or increased swelling of your legs or ankles Swelling or pain in your abdomen Breathing trouble at night. This means waking up short of breath or needing more pillows to breathe. Frequent coughing that doesn?t go away Feeling much more tired than usual Last Reviewed Date: 07/20/202119998374-0449 [employer]. All rights reserved. This information is not intended as a substitute for professional medical care. Always follow your healthcare professional's instructions. * Pt Handout (on AVS) - Sebastian Miguel RPh - 11/11/2023 7:11 AM EST Images from the original note were not included. [id number] Apixaban Oral Tablet Brands: [employer] Uses This medicine is used for the [...] about all medicines taken. Include prescription and [id number] medicines, vitamins, and herbal medicines. Speak with [...] to a different medicine. Do not take Jayda's wort while on this medicine. Do not [...] you have any questions about this medicine. [email or web address] IMPORTANT NOTE: This document tells you briefly how to take your medicine, but it does not tell youall there is to know about it. Your doctor or pharmacist may give you other documents about your medicine. Please talk to them if you have any questions. Always follow their advice. There is a more complete description of this medicine available in Turkish. Scan this code on your smartphone or tablet or use the web address below. You can also ask your pharmacist for a printout. If you have any questions, please ask your pharmacist. The display and use of this drug information is subject to Terms of Use. Copyright(c) 2022 [email or web address]. 8900-2916 [employer]. All rights reserved. This information is not intended as a substitute for professional medical care. Always follow your healthcare professional's instructions. Y * [facility] Jennifer Elaine Hurtado RN - 11/11/2023 5:02 AM EST Clinical Goal(s): Pt will sleep for at least 4 hours during this shift (11/10/231955) Possible barriers to meeting goal(s)/advancing plan of care: Stress, pain, comorbidities Stability of the patient: Moderately stable - low risk of patient condition declining or worsening Summary regarding today's goal(s): Met: Pt slept for over 4 hours during this shift Recommendations: Continue to implement stress reduction strategies and monitor pain level, providing appropriate interventions as needed. Follow plan of care. * ACP (Advance Care Planning) - Robinson Negrete, SUPPRESSION CREW LEADER - 11/10/2023 2:47 PM EST Pt. Placed on RA sat 100%. * Progress Notes - Non-Billable - Antonio Barajas MD - 11/10/2023 10:59 AM EST Agree with Overnight H&P 88 yo Female with A.fib on Eliquis, Takatsubu Cardiomyopathy c/b VFib arrest, /p Single chamber [id number], Viral Pericarditis/ Cardiac Tamponade s/p Pericardiocentesis 10/2022, LL PVD s/p Thromboembolectomy 12/2022 seen in cardiology clinic on 10/20/23 reports left sided chest pain and had Nuclear stress test done noted for Ischemia of the distal to mid anterior wall and basal inferolateral inferior wall. Moderate area of area of moderate severe intensity reversible defect of distal to mid anterior and apex. Basal inferolateral and inferior wall. The LV ejection fraction is calculated at 30% and Cardiology working on scheduling OP cath p/w Worsening sob x 2 days. Labs: Elevated Pro-BNP and Mildly elevated Transaminases Appears Volume overloaded on exam Continue Telemetry monitoring. 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 Metoprolol was switched to Coreg yesterday but pt's BP is low today. Cardiology consulted * Care Plan - Stu Claudio RN - 11/10/2023 5:06 AM EST Clinical Goal(s): Pt will not fall this shift. (11/10/231) Possible barriers to meeting goal(s)/advancing plan of care: Weakness and SOB. Stability of the patient: Moderately stable - low risk of patient condition declining or worsening Summary regarding today's goal(s): Met: Pt did not fall this shift. Recommendations: Continue to implement fall precautions. * Medical Necessity - Casi Galvan RN - 11/10/2023 3:54 AM EST AdmissionCare Guideline: Heart Failure - INPT, Inpatient Based on the indications selected for the patient, the bed status of Inpatient was determined to beMET The following indications were selected as present at the time of evaluation of the patient: - Pulmonary edema that is persistent, as indicated by ALL of the following: - New need for oxygen therapy to keep oxygen saturation above 90% (or increased FiO2 need from baseline) - Has not improved sufficiently with observation care (eg, appropriately dosed IV diuretics) Additional Information: patient being short of breath and needing 2 L nasal cannula to originally get to the bathroom. She was unable continue walking past her room without any supplemental oxygen due to being short of breath given 60mg IV lasix AdmissionCare documentation entered by: Casi Galvan [facility], 27th edition, Copyright 2022 [facility], [facility] All Rights Reserved. [id number]:06-05:00 Solely for purpose of utilization review and payment; not a diagnostic tool * ED Supervisor Garage Note - Teresa Ruby RN - 11/10/2023 3:02 AM EST Gave report to 5A staff * ED Supervisor Garage Note - Teresa Ruby RN - 11/10/2023 1:58 AM EST Attempted to ambulate patient to the bathroom and back. Patient ambulated with out assistance to the bathroom on 2 L. Patient was on room air after going to the bathroom but reports feeling very SOB and was unable to ambulate back to bed with out stopping to sit and take a few deep breaths. Patientdid not feel able to walk any amount of distance due to how SOB she felt. Patient was placed back on 2 L for comfort. SpO2 on RA dropped to 92% and HR jumped to 125bpm prior to sitting. documented in this encounter Plan of Treatment Upcoming Encounters Date Type Department Care Team (Late st Contact Info) Description 11/21/2023 1:30 PM EST Office Visit Cardiology [place] [address] [place] [address] Sari Oliver CRNP [address] [facility] [place] [phone] 12/09/2023 9:00 AM EDT Appointment Cardiac Studies, [facility] [address] [place] [address] 02/16/2024 10:00 AM EDT Office Visit [place] [address] [place] [address] Nel Rajan PA-C [address] [facility] [place] [address] 04/04/2024 9:00 AM EDT Cardiac Studies Cardiology [address] [place] [address] [facility] [address] [place] [address] Pending Results Name Type Priority Associated Diagnoses Date /Time CULTURE, BLOOD Lab Routine 11/10/2023 1:22 AM EST CULTURE, BLOOD Lab Routine 11/10/2023 1:22 AM EST Scheduled Orders Name Type Priority Associated Diagnoses Orde r Schedule VASC ANKLE BRACHIAL INDICES WITHOUT PPG (PAD) Medical Imaging Routine One Time for 1 Occurrences starting 11/10/2023 until 11/10/2023 BASIC METABOLIC PANEL Lab Routine Chronic diastolic congestive heart failure (HCC) Expected: 11/16/2023, Expires: 11/12/2024 Health Maintenance Due Date Last Done Comments Depression Screening 1947 Diabetic Foot Exam 1953 DTaP,Tdap,and Td Vaccines (1 - Tdap) 01/22/1956 Zoster Vaccines (1 of 2) 1987 Albumin/Creatinine Ratio 12/03/2015 12/02/2014 *SPIROMETRY ONCE FOR ASTHMA-ADULT 11/07/2016 COVID-19 Vaccine ( - season) 2023 Influenza Vaccine (FLU shot) (#1) [...] this encounter Medical Devices Implanted Type Area Heat Sealing Machine Operator Device Identifier Shelf Expiration Date Model / Serial / Lot Lens 21.0 Jerome - [id number] - [id number] Implanted:Qty: 1 on 01/28/2023 by Christian Woo DO at OR [facility] Lens Right: Eye [employer] 10/12/2025 CNA0T0.210 / [id number] / Lens 20.5 [facility] [id number] 135 - [id number] Implanted:Qty: 1 on 01/04/2023 by Christian Woo DO at OR [facility] Left: Eye [employer] 07/15/2025 CNA0T0.205 / [id number] / documented as of this encounter Procedures Procedure Name Priority Date/Time Associated Diagnosis Comments GLUCOSE METER, POINT OF CARE [facility] 11/12/2023 11:15 AM EST GLUCOSE METER, POINT OF CARE [facility] 11/12/2023 7:15 AM EST BASIC METABOLIC PANEL Routine 11/12/2023 5:05 AM EST CBC Routine 11/12/2023 5:05 AM EST GLUCOSE METER, POINT OF CARE [facility] 11/11/2023 9:49 PM EST GLUCOSE METER, POINT OF CARE [facility] 11/11/2023 4:19 PM EST GLUCOSE METER, POINT OF CARE [facility] 11/11/2023 11:27 AM EST GLUCOSE METER, POINT OF CARE [facility] 11/11/2023 8:06 AM EST GLUCOSE METER, POINT OF CARE [facility] 11/11/2023 7:14 AM EST BASIC METABOLIC PANEL Routine 11/11/2023 4:32 AM EST CBC Routine 11/11/2023 4:32 AM EST GLUCOSE METER, POINT OF CARE [facility] 11/10/2023 9:20 PM EST GLUCOSE METER, POINT OF CARE [facility] 11/10/2023 5:04 PM EST ECHO, COMPLETE (2D), TRANS-THORACIC Routine 11/10/2023 12:01 PM EST Cardiac arrhythmia, unspecified GLUCOSE METER, POINT OF CARE [facility] 11/10/2023 11:34 AM EST TROPONIN T, HIGH SENSITIVITY Routine 11/10/2023 11:19 AM EST GLUCOSE METER, POINT OF CARE [facility] 11/10/2023 7:47 AM EST CULTURE, BLOOD Routine 11/10/2023 1:22 AM EST CULTURE, BLOOD Routine 11/10/2023 1:22 AM EST EXTRA LIGHT BLUE TOP Routine 11/10/2023 12:43 AM EST DIFFERENTIAL, AUTOMATED STAT 11/10/2023 12:43 AM EST TROPONIN T, HIGH SENSITIVITY STAT 11/10/2023 12:43 AM EST BLOOD GAS, VENOUS STAT 11/10/2023 12: 43 AM EST HEMOGLOBIN A1C Routine 11/10/2023 12:43 AM EST BNP (NT-PROBNP) STAT 11/10/2023 12:43 AM EST COMPREHENSIVE METABOLIC PANEL STAT 11/10/2023 12:43 AM EST CBC STAT 11/10/2023 12:43 AM EST PT INR STAT 11/10/2023 12:43 AM EST CBC STAT 11/10/2023 12:43 AM EST MAGNESIUM Add-on 11/10/2023 12:43 AM EST EXTRA MATA TOP Routine 11/10/2023 12:42 AM EST EXTRA TUBES Routine 11/10/2023 12:42 AM EST XR CHEST 1 VIEW STAT 11/10/2023 12:27 AM EST RESPIRATORY PATHOGEN PANEL, PCR STAT 11/10/2023 12:18 AM EST documented in this encounter Results * (ABNORMAL) GLUCOSE METER, POINT OF CARE (11/12/2023 11:15 AM EST) Glucose Meter 178(H) 70 - 120 mg/dL 11/12/2023 11:26 AM EST [facility] Blood Whole blood specimen / Unknown 11/12/2023 11:15 AM EST 11/12/2023 11:26 AM EST Antonio Barajas MD LAB POINT OF CARE TE ST DOCKED DEVICE UNSOLICITED RESULTS Performing Organization Address City/[facility]/ZIP Co de Phone Number [facility] [address] [place] [address] * (ABNORMAL) GLUCOSE METER, POINT OF CARE (11/12/2023 7:15 AM EST) Glucose Meter 146(H) 70 - 120 mg/dL 11/12/2023 8:18 AM EST [facility] Blood Whole blood specimen / Unknown 11/12/2023 7:15 AM EST 11/12/2023 8:17 AM EST Antonio Barajas MD LAB POINT OF CARE TE ST DOCKED DEVICE UNSOLICITED RESULTS Performing Organization Address City/[facility]/ZIP Co de Phone Number [facility] [address] [place] [address] * CBC (11/12/2023 5:05 AM EST) WBC 7.03 4.00 - 10.80 K/uL 11/12/2023 6:06 AM EST LABORATORY [facility] RBC 5.03 3.85 - 5.15 M/uL 11/12/2023 6:06 AM EST [facility] HGB 12.0 12.0 - 15.3 g/dL 11/12/2023 6:06 AM EST [facility] HCT 39.1 36.0 - 45.2 % 11/12/2023 6:06 AM EST [facility] MCV 77.7 81.5 - 97.5 fL 11/12/2023 6:06 AM EST [facility] MCH 23.9 27.0 - 34.0 pg 11/12/2023 6:06 AM EST LABORATORY [facility] MCHC 30.7 32.0 - 36.0 g/dL 11/12/2023 6:06 AM EST LABORATORY [facility] RDW 19.4 11.5 - 15.5 % 11/12/2023 6:06 AM EST LABORATORY [facility] PLT 146 140 - 400 K/uL 11/12/2023 6:06 AM EST LABORATORY [facility] MPV 11.8 6.6 - 11.1 fL 11/12/2023 6:06 AM EST LABORATORY GL nRBCs 0 <=0 /100 WBCs 11/12/2023 6:06 AM EST LABORATORY [facility] Blood Venous blood specimen / Unknown Venipuncture / Unknown 11/12/2023 5:05 AM EST 11/12/2023 5:24 AM EST Antonio Barajas MD LAB BLOOD ORDERABLES Performing Organization Address City/State/[facility] Co de Phone Number LABORATORY [address] [address] * (ABNORMAL) BASIC METABOLIC PANEL (11/12/2023 5:05 AM EST) BUN 17 6 - 20 mg/dL 11/12/2023 5:54 AM EST LABORATORY GL Creatinine 0.8 0.5 - 1.0 mg/dL 11/12/2023 5:54 AM EST LABORATORY GL Estimated Glomerular Filtration Rate 71 >=60 mL/min 11/12/2023 5:54 AM EST LABORATORY GL Comment:eGFR is calculated b ased on the CKD-EPI 2020 equation Sodium 139 135 - 146 mmol/L 11/12/2023 5:54 AM EST LABORATORY GL Potassium 3.7 3.5 - 5.1 mmol/L 11/12/2023 5:54 AM EST [facility]ORY [facility] Chloride 102 98 - 107 mmol/L 11/12/2023 5:54 AM EST [facility] CO2 26 22 - 32 mmol/L 11/12/2023 5:54 AM EST LABORATORY GL Anion Gap 11 7 - 15 mmol/L 11/12/2023 5:54 AM EST LABORATORY GL Glucose 131(H) 70 - 120 mg/dL 11/12/2023 5:54 AM EST LABORATORY GL Calcium 9.1 8.4 - 10.2 mg/dL 11/12/2023 5:54 AM EST LABORATORY [facility] Blood Venous blood specimen / Unknown Venipuncture / Unknown 11/12/2023 5:05 AM EST 11/12/2023 5:24 AM EST Antonio Barajas MD LAB BLOOD ORDERABLES Performing Organization Address City/[facility]/ZIP Co de Phone Number LABORATORY [facility] [address] [place], [place] [phone] * (ABNORMAL) GLUCOSE METER, POINT OF CARE (11/11/2023 9:49 PM EST) Glucose Meter 134(H) 70 - 120 mg/dL 11/11/2023 9:57 PM EST [facility] Blood Whole blood specimen / Unknown 11/11/2023 9:49 PM EST 11/11/2023 9:57 PM EST Antonio Barajas MD LAB POINT OF CARE TE ST DOCKED DEVICE UNSOLICITED RESULTS Performing Organization Address [facility] de Phone Number [facility] [address] [place] [phone] * (ABNORMAL) GLUCOSE METER, POINT OF CARE (11/11/2023 4:19 PM EST) Glucose Meter 147(H) 70 - 120 mg/dL 11/11/2023 4:28 PM EST [facility] Blood Whole blood specimen / Unknown 11/11/2023 4:19 PM EST 11/11/2023 4:28 PM EST Antonio Barajas MD LAB POINT OF CARE TE ST DOCKED DEVICE UNSOLICITED RESULTS Performing Organization Address [facility] Co de Phone Number [facility] [address] [place] [phone] * (ABNORMAL) GLUCOSE METER, POINT OF CARE (11/11/2023 11:27 AM EST) Glucose Meter 173(H) 70 - 120 mg/dL 11/11/2023 11:58 AM EST [facility] Blood Whole blood specimen / Unknown 11/11/2023 11:27 AM EST 11/11/2023 11:58 AM EST Antonio Barajas MD LAB POINT OF CARE TE ST DOCKED DEVICE UNSOLICITED RESULTS Performing Organization Address City/[facility]/ZIP Co de Phone Number [facility] [address] [facility] [place] [address] * (ABNORMAL) GLUCOSE METER, POINT OF CARE (11/11/2023 8:06 AM EST) Glucose Meter 140(H) 70 - 120 mg/dL 11/11/2023 8:14 AM EST [facility] Blood Whole blood specimen / Unknown 11/11/2023 8:06 AM EST 11/11/2023 8:14 AM EST Antonio Barajas MD LAB POINT OF CARE TE ST DOCKED DEVICE UNSOLICITED RESULTS Performing Organization Address [facility] Co de Phone Number [facility] [address] [place] [address] * (ABNORMAL) GLUCOSE METER, POINT OF CARE (11/11/2023 7:14 AM EST) Glucose Meter >500(HH) 70 - 120 mg/dL 11/11/2023 9:02 AM EST [facility] Device Comment Notified Provider 11/11/2023 9:02 AM EST [facility] Blood Whole blood specimen / Unknown 11/11/2023 7:14 AM EST 11/11/2023 9:02 AM EST Antonio Barajas MD LAB POINT OF CARE TE ST DOCKED DEVICE UNSOLICITED RESULTS Performing Organization Address City/[facility] Co de Phone Number [facility] [address] [facility] [place] [address] * (ABNORMAL) CBC (11/11/2023 4:32 AM EST) WBC 7.81 4.00 - 10.80 K/uL 11/11/2023 5:08 AM EST LABORATORY [facility] RBC 4.79 3.85 - 5.15 M/uL 11/11/2023 5:08 AM EST LABORATORY [facility] HGB 11.5(L) 12.0 - 15.3 g/dL 11/11/2023 5:08 AM EST LABORATORY GL HCT 37.2 36.0 - 45.2 % 11/11/2023 5:08 AM EST LABORATORY [facility] MCV 77.7 81.5 - 97.5 fL 11/11/2023 5:08 AM EST LABORATORY [facility] MCH 24.0 27.0 - 34.0 pg 11/11/2023 5:08 AM EST LABORATORY [facility] MCHC 30.9 32.0 - 36.0 g/dL 11/11/2023 5:08 AM EST LABORATORY [facility] RDW 19.1 11.5 - 15.5 % 11/11/2023 5:08 AM EST LABORATORY [facility] PLT 140 140 - 400 K/uL 11/11/2023 5:08 AM EST LABORATORY [facility] MPV 11.9 6.6 - 11.1 fL 11/11/2023 5:08 AM EST LABORATORY [facility] nRBCs 0 <=0 /100 WBCs 11/11/2023 5:08 AM EST LABORATORY [facility] Blood Venous blood specimen / Unknown Venipuncture / Unknown 11/11/2023 4:32 AM EST 11/11/2023 4:56 AM EST Yuri YOST LAB BLOOD ORDERABL ES LABORATORY [facility] [address] [place] [address] * (ABNORMAL) BASIC METABOLIC PANEL (11/11/2023 4:32 AM EST) BUN 16 6 - 20 mg/dL 11/11/2023 5:18 AM EST LABORATORY GL Creatinine 0.8 0.5 - 1.0 mg/dL 11/11/2023 5:18 AM EST [facility]ORY [facility] Estimated Glomerular Filtration Rate 73 >=60 mL/min 11/11/2023 5:18 AM EST [facility] Comment:eGFR is calculated b ased on the CKD-EPI 2020 equation Sodium 143 135 - 146 mmol/L 11/11/2023 5:18 AM EST [facility] Potassium 3.4(L) 3.5 - 5.1 mmol/L 11/11/2023 5:18 AM EST [facility] Chloride 105 98 - 107 mmol/L 11/11/2023 5:18 AM EST [facility] CO2 27 22 - 32 mmol/L 11/11/2023 5:18 AM EST [facility] Anion Gap 11 7 - 15 mmol/L 11/11/2023 5:18 AM EST [facility] Glucose 117 70 - 120 mg/dL 11/11/2023 5:18 AM EST [facility] Calcium 9.0 8.4 - 10.2 mg/dL 11/11/2023 5:18 AM EST [facility] Blood Venous blood specimen / Unknown Venipuncture / Unknown 11/11/2023 4:32 AM EST 11/11/2023 4:56 AM EST Yuri YOST LAB BLOOD ORDERABL ES Performing Organization Address City/[facility]/ZIP Co de Phone Number LABORATORY [facility] [address] [place] [phone] * (ABNORMAL) GLUCOSE METER, POINT OF CARE (11/10/2023 9:20 PM EST) [facility] Glucose Meter 208(H) 70 - 120 mg/dL 11/10/2023 9:40 PM EST [facility] Blood Whole blood specimen / Unknown 11/10/2023 9:20 PM EST 11/10/2023 9:40 PM EST Antonio Barajas MD LAB POINT OF CARE TE ST DOCKED DEVICE UNSOLICITED RESULTS [facility] [address] [place] [address] * (ABNORMAL) GLUCOSE METER, POINT OF CARE (11/10/2023 5:04 PM EST) Glucose Meter 152(H) 70 - 120 mg/dL 11/10/2023 5:06 PM EST [facility] Blood Whole blood specimen / Unknown 11/10/2023 5:04 PM EST 11/10/2023 5:06 PM EST Antonio Barajas MD LAB POINT OF CARE TE ST DOCKED DEVICE UNSOLICITED RESULTS [facility] [address] [place] [address] * ECHO, COMPLETE (2D), TRANS-THORACIC (11/10/2023 12:01 PM EST) Pathologist [facility] LEFT VENTRICULAR EJECTION FRACTION 54 % [facility] 11/10/2023 11:1 3 AM EST Yuri YOST ECHOCARDIOLOGY Performing Organization Address City/[facility]/ZIP Co de Phone Number [facility] * (ABNORMAL) GLUCOSE METER, POINT OF CARE (11/10/2023 11:34 AM EST) Glucose Meter 170(H) 70 - 120 mg/dL 11/10/2023 11:46 AM EST [facility] Blood Whole blood specimen / Unknown 11/10/2023 11:34 AM EST 11/10/2023 11:46 AM EST Antonio Barajas MD LAB POINT OF CARE TE ST DOCKED DEVICE UNSOLICITED RESULTS [facility] [address] [place] [address] * (ABNORMAL) TROPONIN T, HIGH SENSITIVITY (11/10/2023 11:19 AM EST) Troponin T, High Sensitivity 21(H) <=14 ng/L 11/10/2023 11:49 AM EST LABORATORY [facility] Blood Venous blood specimen / Unknown Venipuncture / Unknown 11/10/2023 11:19 AM EST 11/10/2023 11:22 AM EST Antonio Barajas MD LAB BLOOD ORDERABLES Performing Organization Address City/[facility]/ZIP Co de Phone Number LABORATORY [facility] [address] [place] [address] * (ABNORMAL) GLUCOSE METER, POINT OF CARE (11/10/2023 7:47 AM EST) Glucose Meter 153(H) 70 - 120 mg/dL 11/10/2023 8:06 AM EST [facility] Blood Whole blood specimen / Unknown 11/10/2023 7:47 AM EST 11/10/2023 8:06 AM EST Antonio Barajas MD LAB POINT OF CARE TE ST DOCKED DEVICE UNSOLICITED RESULTS Performing Organization Address [facility] Phone Number [facility] [address] [place] [phone] * (ABNORMAL) HEMOGLOBIN A1C (11/10/2023 12:43 AM EST) Hemoglobin A1C 7.7(H) 4.0 - 5.6 % 11/10/2023 3:06 PM EST [facility] [place]:The use of HbA1c to monitor glycemic status is based on normal hemoglobin and HbA composition. This test should not be used in patients with abnormal hemoglobin that affects the half life of the red blood cell or the in vivo glycation rates. Estimated Average Glucose 174(H) <126 mg/dL 11/10/2023 3:06 PM EST [facility] [place] Blood Venous blood specimen / Unknown Venipuncture / Unknown 11/10/2023 12:43 AM EST 11/10/2023 12:47 AM EST Yuri YOST LAB BLOOD ORDERABL ES Performing Organization Address City/[facility]/ZIP Co de Phone Number [facility] [place] [address] [place] [address] * MAGNESIUM (11/10/2023 12:43 AM EST) Magnesium 2.2 1.5 - 2.6 mg/dL 11/10/2023 1:36 AM EST [facility] Blood Venous blood specimen / Unknown Venipuncture / Unknown 11/10/2023 12:43 AM EST 11/10/2023 12:47 AM EST Teodoro Gallegos Sophy DO LAB BLOOD JAI MENDEZ [facility] Organization Address City/State/ZIP Co de Phone Number LABORATORY [address] [address] * (ABNORMAL) BLOOD GAS, VENOUS (11/10/2023 12:43 AM EST) Temperature 37.0 C 11/10/2023 12:54 AM EST LAB[facility]ATORY [facility] pH, Venous 7.377 7.320 - 7.430 units 11/10/2023 12:54 AM EST [facility] pCO2, Venous 51.5 40.0 - 60.0 mmHg 11/10/2023 12:54 AM EST [facility] pO2, Venous 34.4 25.0 - 50.0 mmHg 11/10/2023 12:54 AM EST [facility] Base Excess, Venous 4.0(H) -2.0 - 2.0 mmol/L 11/10/2023 12:54 AM EST [facility] Hemoglobin, Whole Blood 11.3(L) 12.0 - 15.3 g/dL 11/10/2023 12:54 AM EST [facility] Oxyhemoglobin, Venous 52.6 40.0 - 85.0 % total Hgb 11/10/2023 12:54 AM EST [facility] Carboxyhemoglobi n, Whole Blood 1.0 <=1.5 % total Hgb 11/10/2023 12:54 AM EST [facility] Comment:Smokers: 0-9.0 % Methemoglobin, Whole Blood 0.5 <=1.5 % total Hgb 11/10/2023 12:54 AM EST [facility] Reduced Hemoglobin, Venous 45.9 % total Hgb 11/10/2023 12:54 AM EST [facility] O2 Content, Venous 8.4 7.0 - 18.0 %vol 11/10/2023 12:54 AM EST [facility] Bicarbonate, Whole Blood 29.6 23.0 - 31.0 mmol/L 11/10/2023 12:54 AM EST [facility] Blood Venous blood specimen / Unknown Venipuncture / Unknown 11/10/2023 12:43 AM EST 11/10/2023 12:47 AM EST Teodoro Gallegos Sophy DO LAB BLOOD ORDE ANDREA [facility] Organization Address City/State/ZIP Co de Phone Number LABORATORY [address] [address] * DIFFERENTIAL, AUTOMATED (11/10/2023 12:43 AM EST) WBC 6.70 4.00 - 10.80 K/uL 11/10/2023 12:56 AM EST LAB[facility]ATORY [facility] Neutrophils % 64.9 40.0 - 75.0 % 11/10/2023 12:56 AM EST [facility] Lymphocytes % 23.0 18.0 - 42.0 % 11/10/2023 12:56 AM EST [facility] Monocytes % 10.6 1.0 - 11.0 % 11/10/2023 12:56 AM EST [facility] Eosinophils % 1.3 0.0 - 6.0 % 11/10/2023 12:56 AM EST [facility] Basophils % 0.1 0.0 - 2.0 % 11/10/2023 12:56 AM EST [facility] Immature Granulocytes % 0.1 0.0 - 2.0 % 11/10/2023 12:56 AM EST [facility] Absolute Neutrophils 4.34 1.80 - 7.70 K/uL 11/10/2023 12:56 AM EST [facility] Absolute Lymphocytes 1.54 1.00 - 4.80 K/ul 11/10/2023 12:56 AM EST [facility] Absolute Monocytes 0.71 0.00 - 1.10 K/uL 11/10/2023 12:56 AM EST [facility] Absolute Eosinophils 0.09 0.00 - 0.70 K/uL 11/10/2023 12:56 AM EST [facility] Absolute Basophils 0.01 0.00 - 0.20 K/uL 11/10/2023 12:56 AM EST [facility] Absolute Immature Granulocytes 0.01 0.00 - 0.20 K/uL 11/10/2023 12:56 AM EST LABORATORY GL Blood Venous blood specimen / Unknown Venipuncture / Unknown 11/10/2023 12:43 AM EST 11/10/2023 12:47 AM EST Teodoro Beckett DO LAB BLOOD JAI MENDEZ LABORATORY [address] [address] * (ABNORMAL) CBC (11/10/2023 12:43 AM EST) WBC 6.70 4.00 - 10.80 K/uL 11/10/2023 12:56 AM EST LABORATORY [facility] RBC 4.66 3.85 - 5.15 M/uL 11/10/2023 12:56 AM EST LABORATORY GL HGB 11.5(L) 12.0 - 15.3 g/dL 11/10/2023 12:56 AM EST LABORATORY GL HCT 37.3 36.0 - 45.2 % 11/10/2023 12:56 AM EST LABORATORY GL MCV 80.0 81.5 - 97.5 fL 11/10/2023 12:56 AM EST LABORATORY GL MCH 24.7 27.0 - 34.0 pg 11/10/2023 12:56 AM EST LABORATORY GL MCHC 30.8 32.0 - 36.0 g/dL 11/10/2023 12:56 AM EST LABORATORY GL RDW 19.1 11.5 - 15.5 % 11/10/2023 12:56 AM EST LABORATORY GL PLT 125(L) 140 - 400 K/uL 11/10/2023 12:56 AM EST LABORATORY GL MPV 11.8 6.6 - 11.1 fL 11/10/2023 12:56 AM EST LABORATORY GL nRBCs 0 <=0 /100 WBCs 11/10/2023 12:56 AM EST LABORATORY GL Blood Venous blood specimen / Unknown Venipuncture / Unknown 11/10/2023 12:43 AM EST 11/10/2023 12:47 AM EST Teodoro Beckett LAB BLOOD ORDSierra MENDEZ Performing Organization Address City/[facility]/ZIP Co de Phone Number LABORATORY [address] [address] * (ABNORMAL) PT INR (11/10/2023 12:43 AM EST) Pathologist [facility] Prothrombin Time 15.4(H) 11.6 - 15.2 seconds 11/10/2023 1:03 AM EST LABORATORY [facility] INR 1.2 0.8 - 1.2 11/10/2023 1:03 AM EST LABORATORY [facility] Blood Venous blood specimen / Unknown Venipuncture / Unknown 11/10/2023 12:43 AM EST 11/10/2023 12:47 AM EST Narrative LABORATORY [facility] - 11/10/2023 1:03 AM EST Warfarin Therapy INR: 2.0-3.0 conventional anticoagulation INR: 2.5-3.5 high intensity anticoagulation Teodoro Beckett LAB BLOOD ORDSierra MENDEZ Performing Organization Address [facility]/ZIP Co de Phone Number LABORATORY [address] [address] * TROPONIN T, HIGH SENSITIVITY (11/10/2023 12:43 AM EST) [facility] Troponin T, High Sensitivity 13 <=14 ng/L 11/10/2023 1:23 AM EST LABORATORY [facility] Blood Venous blood specimen / Unknown Venipuncture / Unknown 11/10/2023 12:43 AM EST 11/10/2023 12:47 AM EST Teodoro Beckett LAB BLOOD ORDSierra MENDEZ Performing Organization Address City/[facility] Co de Phone Number LABORATORY [address] [address] * (ABNORMAL) BNP, NT-PRO (11/10/2023 12:43 AM EST) Pathologist [facility] BNP, NT-Pro 1,492(H) <300 pg/mL 11/10/2023 1:23 AM EST LABORATORY [facility] Blood Venous blood specimen / Unknown Venipuncture / Unknown 11/10/2023 12:43 AM EST 11/10/2023 12:47 AM EST [facility] LABORATORY [facility] - 11/10/2023 1:23 AM EST Exclude Heart Failure: <300 pg/mL Diagnose Heart Failure: Age <50 yr: >450 pg/mL 50-75 yr: >900 pg/mL >75 yr: >1800 pg/mL GFR is 30-59 mL/min: >1200 pg/mL or Age-adjusted values GFR <30 mL/min: do not use, not reliable Prognostic threshold: 1000 pg/mL Teodoro Beckett DO LAB BLOOD JAI MENDEZ LABORATORY GL [address] [place] [address] * (ABNORMAL) COMPREHENSIVE METABOLIC PANEL (11/10/2023 12:43 AM EST) BUN 19 6 - 20 mg/dL 11/10/2023 1:15 AM EST LABORATORY GL[facility] Creatinine 1.0 0.5 - 1.0 mg/dL 11/10/2023 1:15 AM EST LABORATORY [facility] Estimated Glomerular Filtration Rate 55(L) >=60 mL/min 11/10/2023 1:15 AM EST LABORATORY [facility] Comment:eGFR is calculated b ased on the CKD-EPI 2020 equation Sodium 144 135 - 146 mmol/L 11/10/2023 1:15 AM EST LABORATORY GL[facility] Potassium 4.1 3.5 - 5.1 mmol/L 11/10/2023 1:15 AM EST LABORATORY GL[facility] Chloride 107 98 - 107 mmol/L 11/10/2023 1:15 AM EST LABORATORY GL[facility] CO2 26 22 - 32 mmol/L 11/10/2023 1:15 AM EST LABORATORY GL[facility] Anion Gap 11 7 - 15 mmol/L 11/10/2023 1:15 AM EST LABORATORY GL[facility] Glucose 149(H) 70 - 120 mg/dL 11/10/2023 1:15 AM EST LABORATORY GL[facility] Albumin 3.5(L) 3.8 - 5.0 g/dL 11/10/2023 1:15 AM EST LABORATORY GL[facility] AST 187(H) 10 - 35 U/L 11/10/2023 1:15 AM EST LABORATORY GL[facility] Comment:Result may be falsel y elevated due to hemolysis. Alkaline Phosphatase 87 35 - 130 U/L 11/10/2023 1:15 AM EST LABORATORY GL[facility] Bilirubin, Total 0.5 <=1.2 mg/dL 11/10/2023 1:15 AM EST LABORATORY GL[facility] Calcium 9.4 8.4 - 10.2 mg/dL 11/10/2023 1:15 AM EST LABORATORY GL[facility] Protein 6.1 6.0 - 8.3 g/dL 11/10/2023 1:15 AM EST LABORATORY GL[facility] ALT 79(H) 10 - 35 U/L 11/10/2023 1:15 AM EST LABORATORY GL[facility] Blood Venous blood specimen / Unknown Venipuncture / Unknown 11/10/2023 12:43 AM EST 11/10/2023 12:47 AM EST Teodoro Beckett DO LAB BLOOD ORDE ANDREA Performing Organization Address City/[facility] Co de Phone Number LABORATORY [address] [address] * EXTRA LIGHT BLUE TOP (11/10/2023 12:43 AM EST) Blood Venous blood specimen / Unknown Venipuncture / Unknown 11/10/2023 12:43 AM EST 11/10/2023 12:47 AM EST Teodoro Beckett DO LAB BLOOD ORDE ANDREA LABORATORY [address] [address] * EXTRA MATA TOP (11/10/2023 12:42 AM EST) Blood Venous blood specimen / Unknown 11/10/2023 12:42 AM EST 11/10/2023 12:48 AM EST Pepe Chaudhari MD LAB BLOOD ORDERABLES Performing Organization Address City/[facility]/ZIP Co de Phone Number LABORATORY [address] [address] * XR CHEST 1 VIEW (11/10/2023 12:27 AM EST) Anatomical Region Laterality Modality Chest Digital Radiogra phy 11/10/2023 12:2 2 AM EST Impressions 11/10/2023 12:52 AM EST IMPRESSION: No acute findings. THIS DOCUMENT HAS BEEN ELECTRONICALLY SIGNED BY CRISPIN ARREOLA MD Narrative 11/10/2023 12:52 AM EST PROCEDURE INFORMATION: Exam: XR Chest Exam date and time: 11/10/2023 12:22 AM Age: 88 years old Clinical indication: Shortness of breath; Additional info: SOB TECHNIQUE: Imaging protocol: Radiologic exam of the chest. Views: 1 view. COMPARISON: DX XR CHEST 1 VIEW 10/14/2023 7:43 AM FINDINGS: Tubes, catheters and devices: Left chest wall AICD. Lungs: Mild hyperinflation of the lungs. No consolidation. Pleural spaces: Unremarkable. No pleural effusion. No pneumothorax. Heart/Mediastinum: Stable cardiomediastinal silhouette. Vasculature: Atherosclerotic calcification of the thoracic aorta. Bones/joints: Unremarkable. Procedure Note Crispin Arreola MD - 11/10/2023 PROCEDURE INFORMATION: Exam: XR Chest Exam date and time: 11/10/2023 12:22 AM Age: 88 years old Clinical indication: Shortness of breath; Additional info: SOB TECHNIQUE: Imaging protocol: Radiologic exam of the chest. Views: 1 view. COMPARISON: DX XR CHEST 1 VIEW 10/14/2023 7:43 AM FINDINGS: Tubes, catheters and devices: Left chest wall AICD. Lungs: Mild hyperinflation of the lungs. No consolidation. Pleural spaces: Unremarkable. No pleural effusion. No pneumothorax. Heart/Mediastinum: Stable cardiomediastinal silhouette. Vasculature: Atherosclerotic calcification of the thoracic aorta. Bones/joints: Unremarkable. IMPRESSION IMPRESSION: No acute findings. THIS DOCUMENT HAS BEEN ELECTRONICALLY SIGNED BY CRISPIN ARREOLA MD Teodoor Beckett DO RADIOLOGY (RAD GENERAL) * RESPIRATORY PATHOGEN PANEL, PCR (11/10/2023 12:18 AM EST) Adenovirus by PCR Negative Negative 024 1:12 AM EST LABORATORY [facility] Coronavirus 229E by PCR Negative Negative 11/10/2023 1:12 AM EST LABORATORY [facility] Coronavirus HKU1 by PCR Negative Negative 11/10/2023 1:12 AM EST LABORATORY [facility] Coronavirus NL63 by PCR Negative Negative 11/10/2023 1:12 AM EST LABORATORY [facility] Coronavirus OC43 by PCR Negative Negative 11/10/2023 1:12 AM EST LABORATORY [facility] Coronavirus SARS-CoV-2 by PCR Negative Negative 11/10/2023 1:12 AM EST LABORATORY [facility] Human Metapneumovirus by PCR Negative Negative 11/10/2023 1:12 AM EST LABORATORY [facility] Rhinovirus/Enterovi kusum by PCR Negative Negative 11/10/2023 1:12 AM EST LABORATORY [facility] Influenza A Virus by PCR Negative Negative 11/10/2023 1:12 AM EST LABORATORY [facility] Influenza B Virus by PCR Negative Negative 11/10/2023 1:12 AM EST LABORATORY [facility] Parainfluenza Virus 1 by PCR Negative Negative 11/10/2023 1:12 AM EST LABORATORY [facility] Parainfluenza Virus 2 by PCR Negative Negative 11/10/2023 1:12 AM EST LABORATORY [facility] Parainfluenza Virus 3 by PCR Negative Negative 11/10/2023 1:12 AM EST LABORATORY [facility] Parainfluenza Virus 4 by PCR Negative Negative 11/10/2023 1:12 AM EST LABORATORY [facility] Respiratory Syncytial Virus by PCR Negative Negative 11/10/2023 1:12 AM EST LABORATORY [facility] Bordetella pertussis by PCR Negative Negative 11/10/2023 1:12 AM EST LABORATORY [facility] Chlamydia pneumoniae by PCR Negative Negative 11/10/2023 1:12 AM EST LABORATORY [facility] Mycoplasma pneumoniae by PCR Negative Negative 11/10/2023 1:12 AM EST LABORATORY [facility] Bordetella parapertussis by PCR Negative Negative 11/10/2023 1:12 AM EST LABORATORY [facility] Comment: The primers that detect Rhinovirus may cross react with some Enterorviruses. The validation of bronchial specimens, tracheal aspirates, and throats for this assay was developed and performance characteristics determined by [employer]. The validation of alternate specimen types has not been cleared or approved by the U.S. Food and Drug Administration (FDA). It has been determined that such clearance or approval is not necessary. Upper Respiratory Mid-turbinate nasal swab / Unknown Non-blood Collection / Unknown 11/10/2023 12:18 AM EST 11/10/2023 12:22 AM EST Teodoro Beckett DO LAB MICRO - GE NERAL ORDERABLES LABORATORY [address] [address] documented in this encounter Visit Diagnoses Diagnosis Acute respiratory failure with hypoxia (HCC)- Primary Acute respiratory failure Shortness of breath Heart failure (HCC) Heart failure, unspecified Chest pain Chest pain, unspecified Cardiac arrhythmia, unspecified HTN, goal below 140/90 Unspecified essential hypertension Dyslipidemia, goal LDL below 70 Other and unspecified hyperlipidemia Permanent atrial fibrillation (HCC) Atrial fibrillation Chronic diastolic congestive heart failure (HCC) Chronic diastolic heart failure ICD (implantable cardioverter-defibrillator), single, in situ Type 2 diabetes mellitus with hemoglobin A1c goal of less than 7.0% (HCC) Chronic anticoagulation Long-term (current) use of anticoagulants Uncontrolled hypertension Unspecified essential hypertension Acute on chronic diastolic heart failure (HCC) Acute on chronic diastolic heart failure Leg edema Edema PAD (peripheral artery disease) (HCC) Peripheral vascular disease, unspecified Elevated transaminase level Nonspecific elevation of levels of transaminase or lactic acid dehydrogenase (LDH) Coronary artery disease involving unga coronary artery of unga heart without angina pectoris Abnormal nuclear stress test Other nonspecific abnormal cardiovascular system function study documented in this encounter Administered Medications Inactive Administered Medications - up to 3 most recent administrations Medication Order MAR Action Action Date Dose Rate Site Apixaban (Eliquis) tab 5 mg 5 mg, Oral, BID (.AM/PM), First dose on Tue11/10/23 at 0900, Until Discontinued Given 11/12/2023 8:01 AM EST 5 mg Given 11/11/2023 10:47 PM EST 5 mg Given 11/11/2023 9:12 AM EST 5 mg aspirin chew tab 81 mg 81 mg, Oral, Daily(AM), First dose on Tue11/10/23 at 0900, Until Discontinued Given 11/12/2023 8:01 AM EST 81 mg Given 11/11/2023 9:12 AM EST 81 mg Given 11/10/2023 8:34 AM EST 81 mg Carvedilol (Coreg) tab 12.5 mg 12.5 mg, Oral, BID (AM/PM MEALS), First dose on Silva 11/10/23 at 0800, Until Discontinued, Hold for HR less than 60 or SBP below 100 and notify service if dose is held MUST BE GIVEN WITH MEAL Given 11/10/2023 8:34 AM EST 12.5 mg colchicine tab 0.6 mg 0.6 mg, Oral, Daily(AM), First dose on Silva 11/10/23 at 0900, Until Discontinued Given 11/12/2023 8:01 AM EST 0.6 mg Given 11/11/2023 9:13 AM EST 0.6 mg Given 11/10/2023 8:34 AM EST 0.6 mg dextrose 50 % inj 25 mL 25 mL, IV Push, PRN Hypoglycemia, Other, For blood glucose 54 - 69 mg/dL or 70 - 100 mg/dL with symptoms AND patient is unresponsive, NPO, OR unable to swallow, Starting on [facility] 11/10/23 at 0428, Until 11/12/23 at 1655, Administer IV. Recheck blood glucose after 15 minutes. Notify provider. dextrose 50 % inj 50 mL 50 mL, IV Push, PRN Hypoglycemia, Other, For blood glucose below 54 mg/dL AND patient unresponsive, NPO, OR unable to swallow, Starting on [facility] 11/10/23 at 0428, Until 11/12/23 at 1655, Administer IV. Recheck blood glucose in 15 minutes. Notify provider. Empagliflozin (Jardiance) tab 25 mg 25 mg, Oral, Daily(AM), First dose on Silva 11/10/23 at 0900, Until Discontinued Given 11/12/2023 8:01 AM EST 25 mg Given 11/11/2023 9:12 AM EST 25 mg Given 11/10/2023 8:34 AM EST 25 mg fluticasone furoate-vilanterol (BREO ellipta) 200-25 MCG/ACT inhaler 1 Puff 1 Puff, Inhalation, Daily(AM), First dose on [facility] 11/10/23 at 0900, Until Discontinued Given 11/12/2023 7:49 AM EST 1 Pu ff Given 11/11/2023 9:17 AM EST 1 Puff Given 11/10/2023 7:49 AM EST 1 Puff Furosemide (Lasix) inj 60 mg 60 mg, IV Push, ONCE, On Silva 11/10/23 at 0145, For 1 dose Given 11/10/2023 1:22 AM EST 60 mg Furosemide (Lasix) inj 60 mg 60 mg, IV Push, BID (0900, 1600), First dose (after last modification) on Silva 11/10/23 at 1600, Until Discontinued Given 11/11/2023 3:21 PM EST 60 mg Given 11/11/2023 9:13 AM EST 60 mg Given 11/10/2023 3:23 PM EST 60 mg glucagon (Glucagen) inj 1 mg 1 mg, Intramuscular, PRN Hypoglycemia, Other, If patient is unresponsive, or NPO and has no IV access, Starting on Silva 11/10/23 at 0428, Until 11/12/23 at 1655, NPO and no IV access with either [...] patient alert WITH difficulty chewing/swallowing, Starting on Silva 11/10/23 at 0428, Until 11/12/23 at 1655, Administer gel. Recheck blood glucose after 15 minutes. Notify provider. 37.5 gram tube = 15 grams glucose = 1 each Glucose (Glutose 15) 40 % gel 30 g of glucose 30 g of glucose, Oral, PRN Hypoglycemia (low sugar), Other, For blood glucose below 54 mg/dL AND patient alert WITH difficulty chewing/swallowing, Starting on Silva 11/10/23 at 0428, Until 11/12/23 at 1655, Administer gel. Recheck blood glucose after 15 minutes. Notify provider. 37.5 gram tube = 15 grams glucose = 1 each glucose chew tab 16 g 16 g, Oral, PRN Hypoglycemia, Other, For blood glucose 54 - 69 mg/dL or 70 - 100 mg/dL with symptoms and patient alert without difficulty chewing/swallowing., Starting on Silva 11/10/23 at 0428, Until 11/12/23 at 1655 home medication stored in pharmacy Daily(AM), First dose on Tue11/11/23 at 0900, Until Discontinued, Routine, when the patient is ready for discharge contact pharmacy insulin aspart (NovoLOG) inj Subcutaneous, W/MEALS AND HS, First dose on Tue11/10/23 at 0800, Until Discontinued, LOW DOSE (Elderly insulin sensitive patient): Sliding Scale Correctional insulin may be given if the patient is NPO. Dose based on standard build from Insulin Calculator. Do not modify insulin doses in administration instructions! , Glucose less than 70 instructions: Obtain STAT lab blood glucose and call covering provider., Glucose 80-150 (units): 0, Glucose 151-200 (units): 1, Glucose 201-250 (units): 2, Glucose 251-300 (units): 3, Glucose greater than 300 (units): 4, Glucose greater than 300 instructions: Give suggested insulin dose and call covering provider. Given 11/12/2023 11:47 AM EST 1 Units Arm Right Upper Given 11/11/2023 11:59 AM EST 1 Units A rm Right Upper Given 11/10/2023 9:41 PM EST 2 Units Ar m Left Upper Ipratropium-Albuterol (Combivent Respimat) inhaler 1 Puff 1 Puff, Inhalation, QID(AM/NOON/PM/HS), First dose on Tue11/10/23 at 0600, Until Discontinued, Shake well before use! WASTE INFO ( IF NOT SENT HOME WITH PATIENT) : Return unused medication to pharmacy in zip lock bag for disposal into black container labeled SP. Given 11/10/2023 7:49 AM EST 1 Puff Ipratropium-Albuterol (Combivent Respimat) inhaler 1 Puff 1 Puff, Inhalation, RESPQID, First dose (after last modification) on Tue11/10/23 at 1100, Until Discontinued, Shake well before use! WASTE INFO ( IF NOT SENT HOME WITH PATIENT) : Return unused medication to pharmacy in zip lock bag for disposal into black container labeled SP. Given 11/12/2023 10:46 AM EST 1 Puff Given 11/12/2023 7:49 AM EST 1 Puff Given 11/11/2023 6:28 PM EST 1 Puff metoprolol succinate XL (toPROL XL) tab 25 mg 25 mg, Oral, Daily(AM), First dose on Tue11/11/23 at 0900, Until Discontinued, Hold for HR less than 60 or SBP below 100 and notify service if dose is held This med should NOT be Crushed or Chewed. Given 11/12/2023 8:00 AM EST 25 mg Given 11/11/2023 9:12 AM EST 25 mg omeprazole (PriLOSEC) cap 20 mg 20 mg, Oral, Daily(AM), First dose on Tue11/10/23 at 0900, Until Discontinued, This med should NOT be Crushed or Chewed Given 11/12/2023 8:00 AM EST 20 mg Given 11/11/2023 9:12 AM EST 20 mg Given 11/10/2023 8:34 AM EST 20 mg oxygen GAS Inhalation, OXYGEN, First dose on Tue11/10/23 at 0345, Until Discontinued, Device/Managed by: Low Flow Device, Goal SPO2 (%): 91-95, Starting Device: Nasal Cannula, Initial Flow Rate (LPM): 2, Lowest Support: Nasal Cannula: Flow 0-6 LPM. Titrate up/down by 1 LPM., Titration Interval: Q2 minutes and as needed., Notify Provider: For sudden DECREASE in resting SPO2 to less than 85% and when escalating delivery device., Wean patient off Oxygen when the oxygen saturation is greater than or equal to 93% Oxygen On 11/10/2023 8:00 AM EST Oxygen On 11/10/2023 3:45 AM EST 2 L/min(Oxygen) potassium chloride ER tab 30 mEq 30 mEq, Oral, ONCE, On Tue11/11/23 at 0600, For 1 dose, This med should NOT be Crushed or Chewed Given 11/11/2023 6:50 AM EST 30 mEq sodium chloride 0.9 % flush peripheral yanet 3 mL 3 mL, IV Push, QSHIFT, First dose on Tue11/10/23 at 0800, Until Discontinued, Do not flush if lock, PICC, or central line not in place; IV infusing or unable to flush. Given 11/11/2023 9:14 AM EST 3 mL Given 11/11/2023 9:13 AM EST 3 mL Given 11/11/2023 12:00 AM EST 3 mL Torsemide (Demadex) tab 20 mg 20 mg, Oral, BID (0700,1900), First dose on Silva 11/10/23 at 0700, Until Discontinued Given 11/10/2023 5:40 AM EST 20 m g Torsemide (Demadex) tab 40 mg 40 mg, Oral, BID (0800, NOON), First dose on Tue11/12/23 at 0800, Until Discontinued Given 11/12/2023 8:00 AM EST 40 m g documented in this encounter Active and Recently Administered Medications Times are shown in EST. Scheduled Medication Order 11/10/2023 11/11/2023 11/12/2023 Apixaban (Eliquis) tab 5 mg 5 mg, Oral, BID (.AM/PM), First dose on Silva 11/10/23 at 0900, Until Discontinued 925 (Given - Provider: Marcy Lopez RN)2140 (Given - Provider: Elaine Hurtado RN) 09 (Given - Provider: Mili Choudhary RN)224 (Given - Provider: Elaine Hurtado RN) 0801 (Given - Provider: Mili Choudhary RN) aspirin chew tab 81 mg 81 mg, Oral, Daily(AM), First dose on Silva 11/10/23 at 0900, Until Discontinued 08 (Given - Provider: Marcy Lopez RN) 0912 (Given - Provider: Mili Choudhary RN) 0801 (Given - Provider: Mili Choudhary RN) Carvedilol (Coreg) tab 12.5 mg (CANCELED) 12.5 mg, Oral, BID (AM/PM MEALS), First dose on Silva 11/10/23 at 0800, Until Discontinued, Hold for HR less than 60 or SBP below 100 and notify service if dose is held MUST BE GIVEN WITH MEAL 0834 (Given - Provider: Marcy Lopez RN) colchicine tab 0.6 mg 0.6 mg, Oral, Daily(AM), First dose on Silva 11/10/23 at 0900, Until Discontinued 0834 (Given - Provider: Marcy Lopez RN) 0913 (Given - Provider: Mili Choudhary RN) 0801 (Given - Provider: Mili Choudhary RN) Empagliflozin (Jardiance) tab 25 mg 25 mg, Oral, Daily(AM), First dose on Tue11/10/23 at 0900, Until Discontinued 0834 (Given - Provider: Marcy Lopez RN) 0912 (Given - Provider: Mili Choudhary RN) 0801 (Given - Provider: Mili Choudhary RN) fluticasone furoate-vilanterol (BREO ellipta) 200-25 MCG/ACT inhaler 1 Puff 1 Puff, Inhalation, Daily(AM), First dose on Tue11/10/23 at 0900, Until Discontinued 0749 (Given - Provider: Jessika Lucero, GRANT) 0917 (Given - Provider: Vicky Singer, GRANT) 0749 (Given - Provider: Olu Queen, GRANT) Furosemide (Lasix) inj 60 mg (COMPLETED) 60 mg, IV Push, ONCE, On Tue11/10/23 at 0145, For 1 dose 0122 (Given - Provider: Teresa Ruby RN) Furosemide (Lasix) inj 60 mg (CANCELED) 60 mg, IV Push, BID (0900, 1600), First dose (after last modification) on Tue11/10/23 at 1600, Until Discontinued 1523 (Given - Provider: Marcy Lopez RN) 0913 (Given - Provider: Mili Choudhary RN)1521 (Given - Provider: Mili Choudhary RN) home medication stored in pharmacy Daily(AM), First dose on Tue11/11/23 at 0900, Until Discontinued, Routine, when the patient is ready for discharge contact pharmacy 0913 (Order Check Addressed - Provider: Mili Choudhary RN) 0802 (Order Check Addressed - Provider: Mili Choudhary RN) insulin aspart (NovoLOG) inj Subcutaneous, W/MEALS AND HS, First dose on Tue11/10/23 at 0800, Until Discontinued, LOW DOSE (Elderly insulin sensitive patient): Sliding Scale Correctional insulin may be given if the patient is NPO. Dose based on standard build from Insulin Calculator. Do not modify insulin doses in administration instructions! , Glucose less than 70 instructions: Obtain STAT lab blood glucose and call covering provider., Glucose 80-150 (units): 0, Glucose 151-200 (units): 1, Glucose 201-250 (units): 2, Glucose 251-300 (units): 3, Glucose greater than 300 (units): 4, Glucose greater than 300 instructions: Give suggested insulin dose and call covering provider. 0834 (Given - Provider: Marcy Lopez RN)1224 (Given - Provider: Marcy Lopez RN)1714 (Given - Provider: Marcy Lopez RN)2141 (Given - Provider: Elaine Hurtado RN) 0800 (No Insulin - Provider: Mili Choudhary RN - Reason: Parameter(s) Not Met - Comment: 140)1159 (Given - Provider: Mili Choudhary RN)1700 (Not Given - Provider: Mili Choudhary RN - Reason: Parameter(s) Not Met)2200 (No Insulin - Provider: Elaine Hurtado RN - Reason: Parameter(s) Not Met) 0800 (No Insulin - Provider: Mili Choudhary RN - Reason: Parameter(s) Not Met)1147 (Given - Provider: Mili Choudhary RN) Ipratropium-Albuterol (Combivent Respimat) inhaler 1 Puff (CANCELED) 1 Puff, Inhalation, QID(AM/NOON/PM/HS), First dose on Tue11/10/23 at 0600, Until Discontinued, Shake well before use! WASTE INFO ( IF NOT SENT HOME WITH PATIENT) : Return unused medication to pharmacy in zip lock bag for disposal into black container labeled SP. 0749 (Given - Provider: Jessika Lucero RRT) Ipratropium-Albuterol (Combivent Respimat) inhaler 1 Puff 1 Puff, Inhalation, RESPQID, First dose (after last modification) on Tue11/10/23 at 1100, Until Discontinued, Shake well before use! WASTE INFO ( IF NOT SENT HOME WITH PATIENT) : Return unused medication to pharmacy in zip lock bag for disposal into black container labeled SP. 1118 (Given - Provider: Jessika A Lucero, FAST FOOD SERVER)1444 (Given - Provider: Robinson Negrete, SUPPRESSION CREW LEADER)1914 (Given - Provider: Lala Price, FAST FOOD SERVER) 0917 (Given - Provider: Vicky Singer, FAST FOOD SERVER)1158 (Given - Provider: Vicky Singer, FAST FOOD SERVER)1425 (Given - Provider: Vicky Singer, FAST FOOD SERVER)1828 (Given - Provider: Vicky Singer, FAST FOOD SERVER) 0749 (Given - Provider: Olu Queen, FAST FOOD SERVER)1046 (Given - Provider: Olu Queen, GRANT) metoprolol succinate XL (toPROL XL) tab 25 mg 25 mg, Oral, Daily(AM), First dose on Tue11/11/23 at 0900, Until Discontinued, Hold for HR less than 60 or SBP below 100 and notify service if dose is held This med should NOT be Crushed or Chewed. 0912 (Given - Provider: Mili Choudhary RN) 0800 (Given - Provider: Mili Choudhary RN) omeprazole (PriLOSEC) cap 20 mg 20 mg, Oral, Daily(AM), First dose on Tue11/10/23 at 0900, Until Discontinued, This med should NOT be Crushed or Chewed 0834 (Given - Provider: Marcy Lopez RN) 0912 (Given - Provider: Mili Choudhary RN) 0800 (Given - Provider: Mili Choudhary RN) oxygen GAS Inhalation, OXYGEN, First dose on Tue11/10/23 at 0345, Until Discontinued, Device/Managed by: Low Flow Device, Goal SPO2 (%): 91-95, Starting Device: Nasal Cannula, Initial Flow Rate (LPM): 2, Lowest Support: Nasal Cannula: Flow 0-6 LPM. Titrate up/down by 1 LPM., Titration Interval: Q2 minutes and as needed., Notify Provider: For sudden DECREASE in resting SPO2 to less than 85% and when escalating delivery device., Wean patient off Oxygen when the oxygen saturation is greater than or equal to 93% 0345 (Oxygen On - Provider: Stu Claudio RN)0800 (Oxygen On - Provider: Marcy Lopez RN)1600 (Oxygen Off - Provider: Marcy Lopez RN) 0000 (Oxygen Off - Provider: Elaine Hurtado RN)0913 (Oxygen Off - Provider: Mili Choudhary RN)1522 (Oxygen Off - Provider: Mili Choudhary RN) 0000 (Oxygen Off - Provider: Elaine Hurtado RN)0802 (Oxygen Off - Provider: Mili Choudhary RN) potassium chloride ER tab 30 mEq (COMPLETED) 30 mEq, Oral, ONCE, On Tue11/11/23 at 0600, For 1 dose, This med should NOT be Crushed or Chewed 0650 (Given - Provider: Elaine Hurtado RN) sodium chloride 0.9 % flush peripheral yanet 3 mL (CANCELED) 3 mL, IV Push, QSHIFT, First dose on Silva 11/10/23 at 0800, Until Discontinued, Do not flush if lock, PICC, or central line not in place; IV infusing or unable to flush. 0800 (Given - Provider: Marcy Lopez RN)1600 (Given - Provider: Marcy Lopez RN) 0000 (Given - Provider: Elaine Hrutado RN)0913 (Given - Provider: Mili Choudhary RN)0914 (Given - Provider: Mili Choudhary RN) Torsemide (Demadex) tab 20 mg (CANCELED) 20 mg, Oral, BID (0700,1900), First dose on Silva 11/10/23 at 0700, Until Discontinued 0540 (Given - Provider: Stu Claudio RN) Torsemide (Demadex) tab 40 mg 40 mg, Oral, BID (0800, NOON), First dose on 11/12/23 at 0800, Until Discontinued 0800 (Given - Provider: Mili Choudhary RN)1148 (Not Given - Provider: Mili Choudhary RN - Reason: Refused-Notify Provider - Comment: refused d/t being d/c- pt states she will take when she gets home) PRN Medication Order 11/10/2023 11/11/2023 11/12/2023 Acetaminophen (Tylenol) tab 650 mg 650 mg, Oral, Q6H PRN Pain, Mild, Fever >38C(100.5F), Starting on Silva 11/10/23 at 0305, Until 11/12/23 at 1655, Maximum of 4 grams (4000 mg) per day. dextrose 50 % inj 25 mL 25 mL, IV Push, PRN Hypoglycemia, Other, For blood glucose 54 - 69 mg/dL or 70 - 100 mg/dL with symptoms AND patient is unresponsive, NPO, OR unable to swallow, Starting on Silva 11/10/23 at 0428, Until 11/12/23 at 1655, Administer IV. Recheck blood glucose after 15 minutes. Notify provider. dextrose 50 % inj 50 mL 50 mL, IV Push, PRN Hypoglycemia, Other, For blood glucose below 54 mg/dL AND patient unresponsive, NPO, OR unable to swallow, Starting on Silva 11/10/23 at 0428, Until 11/12/23 at 1655, Administer IV. Recheck blood glucose in 15 minutes. Notify provider. Docusate Sodium (Colace) cap 100 mg 100 mg, Oral, BID PRN Constipation, Starting on Silva 11/10/23 at 0302, Until 11/12/23 at 1655, For oral administration ONLY, if route of administration is other than oral and alternative product must be ordered. glucagon (Glucagen) inj 1 mg 1 mg, Intramuscular, PRN Hypoglycemia, Other, If patient is unresponsive, or NPO and has no IV access, Starting on Silva 11/10/23 at 0428, Until 11/12/23 at 1655, NPO and no IV access with either [...] patient alert WITH difficulty chewing/swallowing, Starting on Silva 11/10/23 at 0428, Until 11/12/23 at 1655, Administer gel. Recheck blood glucose after 15 minutes. Notify provider. 37.5 gram tube = 15 grams glucose = 1 each Glucose (Glutose 15) 40 % gel 30 g of glucose 30 g of glucose, Oral, PRN Hypoglycemia (low sugar), Other, For blood glucose below 54 mg/dL AND patient alert WITH difficulty chewing/swallowing, Starting on Silva 11/10/23 at 0428, Until 11/12/23 at 1655, Administer gel. Recheck blood glucose after 15 minutes. Notify provider. 37.5 gram tube = 15 grams glucose = 1 each glucose chew tab 16 g 16 g, Oral, PRN Hypoglycemia, Other, For blood glucose 54 - 69 mg/dL or 70 - 100 mg/dL with symptoms and patient alert without difficulty chewing/swallowing., Starting on Silva 11/10/23 at 0428, Until 11/12/23 at 1655 sodium chloride 0.9 % flush/inj 3 mL 3 mL, IV Push, PRN Other, Line Patency, Starting on Silva 11/10/23 at 0303, Until 11/12/23 at 1655, Do not flush if lock, PICC, or central line not in place, IV infusing or unable to flush documented in this encounter Additional Health Concerns Infection Onset Date Last Indicated Resolved Time Respiratory Rule-Out 11/10/2023 11/10/2023 024 1:12 AM EST COVID-19 Rule-Out 11/10/2023 11/10/2023 11/10/2023 1:12 AM EST documented as of this encounter Advance Directives Latest Code Status [...] the patient have Health Care Power of Senior Process Control Tech? Yes, not currently available Code Status History [...] Advance Directives occurred with: Patient Care Teams Bisque Brusher Relationship Specialty Start Date End Date Isrrael Bolivar DO [address] [place] [address] PCP - General Family Medicine 11/24/10 documented as of this encounter
--- OUTSIDE RECORDS SUMMARY | 2024-05-05 22:04 | External Medical Summary ---
Author Name Unknown Address Unknown Organization K1F:LABORATORY [facility] - [address] [place] [address] Laboratory Report Ordering Provider Test Date Status REINALDO WEEMS 11/12/2023 05:05:00 Final Observation Date Value Abnormality Reference (Units ) Status BUN 11/12/2023 05:05:00 17 6-20 (mg/dL) Final Creatinine 11/12/2023 05:05:00 0.8 0.5-1.0 (mg/dL) Final Glomerular filtration rate/1.73 sq M.predicted [Volume Rate/Area] in Serum, Plasma or Blood by Creatinine-based formula (CKD-EPI) 11/12/2023 05:05:00 71 >=60 (mL/min) Final eGFR is calculated based on the CKD-EPI 2020 equation SODIUM 11/12/2023 05:05:00 139 135-146 (m mol/L) Final Potassium 11/12/2023 05:05:00 3.7 3.5-5.1 (m mol/L) Final Cl 11/12/2023 05:05:00 102 98-107 (mm ol/L) Final CO2 11/12/2023 05:05:00 26 22-32 (mmo l/L) Final Anion gap 11/12/2023 05:05:00 11 7-15 (mmol /L) Final Glucose 11/12/2023 05:05:00 131 Above high normal 70 -120 (mg/dL) Final Calcium 11/12/2023 05:05:00 9.1 8.4-10.2 ( mg/dL) Final Performing Location LAB[facility]ATORY [facility] - [address] [place] [address]
--- OUTSIDE RECORDS SUMMARY | 2024-05-05 22:04 | External Medical Summary | Summary of Care ---
Author Name Unknown Organization [facility] Address [address] [place] [address] Phone [phone] Care Team Providers Care Nascar Driver Name Role Phone Isrrael Bolivar DO Primary Care Provider + [phone] Reason for Visit * Reason Onset Date Comments Encounter Created in Error 11/10/2023 Encounter Details Date Type Department Care Team ([facility] Contact Info) Description 11/10/2023 Telephone Cardiology [place] [facility] [address] Nel Rajan PA-C 400 [facility] [place] [address] Encounter Created in Error Allergies No known active allergiesdocumented as of this encounter (statuses as of 11/10/2023) Medications Medication Sig Dispensed Refills Start Date [...] for chest pain 30 Tab 3 12/08/2010 Suspended Additional Information Patient not taking.Informant: Child, Reported on 11/10/2023 atorvaSTATin (LIPITOR) 40 MG Tablet Take 1 Tablet by mouth every evening. 0 Suspended ipratropium-albute rol (COMBIVENT RESPIMAT) 20-100 MCG/ACT Inhaler Inhale 1 Puff by mouth 4 times a day. 1 Inhaler 0 07/22/2018 Suspended Additional Information Silver sulfADIAZINE 1 % External Cream Apply topically to affected area daily . Apply to BLE 0 Suspended Acetaminophen 325 MG Oral Tablet (Tylenol) Take by mouth 3 Tablets in the morning AND 3 Tablets at noon AND 3 Tablets before bedtime. 30 Tablet 0 03/04/2022 Suspended Additional Information Jardiance 25 MG Oral Tablet Take 1 Tablet by mouth in the morning. 0 03/05/2022 Suspended Docusate Sodium 100 MG Oral Capsule (Colace) Take 1 Capsule by mouth 2 times a day as needed for Constipation. 10 Capsule 0 03/31/2022 Suspended Fluticasone Furoate-Vilanterol 200-25 MCG/ACT Inhalation Aerosol Powder Breath Activated Inhale 1 Puff by mouth in the morning. 60 Blister Dosing Unit 0 03/31/2022 Suspended Pregabalin 150 MG Oral Capsule (Lyrica) Take 1 Capsule by mouth in the morning and 1 Capsule before bedtime. 0 08/09/2022 Suspended TRUEplus Lancets 33G 0 07/02/2022 Suspended True Metrix Blood Glucose Test In Vitro Strip 0 08/30/2022 Suspended True Metrix Meter w/Device Kit 0 07/12/2022 Suspended Alendronate Sodium 70 MG Oral Tablet (Fosamax) Take 1 Tablet by mouth once a week. 0 08/14/2022 Suspended traMADol HCl 50 MG Oral Tablet (Ultram) Take 1 Tablet by mouth every 6 hours as needed for Pain, Severe. 10 Tablet 0 12/24/2022 Suspended Additional Information Apixaban 5 MG Oral Tablet (Eliquis)Indicatio ns:Persistent atrial fibrillation (HCC) TAKE 1 TABLET BY MOUTH 2 times daily 180 Tablet 3 08/15/2023 Suspended Additional Information Triamcinolone Acetonide 0.1 % External Cream (Aristocort) Apply to lower legs twice daily as needed for dry skin 80 g 2 08/22/2023 Suspended Additional Information Aspirin 81 MG Oral Tablet Chewable Take 1 Tablet by mouth in the morning. 0 09/05/2023 Suspended Colchicine 0.6 MG Oral Tablet Take 1 Tablet by mouth in the morning. 0 09/05/2023 Suspended Omeprazole 20 MG Oral Capsule Delayed Release (PriLOSEC) Take 1 Capsule by mouth in the morning. 0 09/05/2023 Suspended Metoprolol Succinate ER 25 MG Oral Tablet Extended Release 24 Hour (Toprol XL) Take 1 Tablet by mouth in the morning. 0 09/05/2023 Suspended glipiZIDE ER 2.5 MG Oral Tablet Extended Release 24 Hour (glipiZIDE XL) TAKE TWO TABLETS BY MOUTH IN THE MORNING AND TAKE ONE TABLET IN THE EVENING 0 09/05/2023 Suspended Torsemide 20 MG Oral Tablet (Demadex)Indicatio ns:HTN, goal below 140/90,Dyslipidemi a, goal LDL below 70,Permanent atrial fibrillation (HCC),Chronic diastolic congestive heart failure (HCC),ICD (implantable cardioverter-defib rillator), single, in situ Take 1 Tablet by mouth in the morning and 1 Tablet in the evening. 0 10/20/2023 Suspended documented as of this encounter (statuses as of 11/10/2023) Active Problems Problem Noted Date Diagnosed Date Leg edema 11/10/2023 PAD (peripheral artery disease) 11/10/2023 Elevated transaminase level 11/10/2023 Coronary artery disease invo lving [place] coronary artery of [place] heart without angina pectoris 11/10/2023 Abnormal nuclear [...] as of this encounter (statuses as of 11/10/2023) Resolved Problems Problem Noted Date Diagnosed Date Resolved Date Cardiac/pericardial tamponade 11/02/2022 11/05/2022 Hypoxemia 11/24/2018 11/27/2018 Cardiac arrest 11/24/2010 07/14/2011 Ventricular fibrillation 11/24/2010 Acute non Q wave myocardial infarction 11/24/2010 07/14/2011 HTN, goal below 130/80 11/24/201005/11 Overview: Per HTN Protocol #27. documented as of this encounter (statuses as of 11/10/2023) Immunizations Name Administration Dates Next Due Pneumococcal [...] No 11/10/2023 documented as of this encounter Plan of Treatment Upcoming Encounters Date Type Department Care Team (Late st Contact Info) Description 12/09/2023 9:00 AM EDT Appointment Cardiac Studies, [facility] [address] [place] [address] 02/16/2024 10:00 AM EDT Office Visit Cardiology, [place] [address] [place] [address] Nel Rajan PA-C [address] [facility] [place] [address] 04/04/2024 9:00 AM EDT Cardiac Studies Cardiology, [place] [address] [place] [address] [facility] [address] [place] [address] Health Maintenance Due Date Last Done Comments Depression Screening 1947 Diabetic Foot Exam 1955 DTaP,Tdap,and Td Vaccines (1 - Tdap) 01/22/1956 Zoster Vaccines (1 of 2) 1987 Albumin/Creatinine Ratio 12/03/2015 12/02/2014 *SPIROMETRY ONCE FOR ASTHMA-ADULT 11/07/2016 COVID-19 Vaccine ( - 2022- season) 2023 Influenza Vaccine (FLU shot) (#1) [...] this encounter Medical Devices Implanted Type Area Graphic Production Artist Device Identifier Shelf Expiration Date Model / Serial / Lot Lens 21.0 Jerome - [id number] - [id number] Implanted:Qty: 1 on 01/28/2023 by Christian Woo, DO at OR [facility] Lens Right: Eye [employer] 10/12/2025 CNA0T0.210 / [id number] / Lens 20.5 [facility] - [id number] - [id number] Implanted:Qty: 1 on 01/04/2023 by Christian Woo, DO at OR [facility] Left: Eye [employer] 07/15/2025 CNA0T0.205 / [id number] / documented as of this encounter Additional Health Concerns Infection Onset Date Last Indicated Resolved Time Respiratory Rule-Out 11/10/2023 11/10/2023 024 1:12 AM EST COVID-19 Rule-Out 11/10/2023 11/10/2023 11/10/2023 1:12 AM EST documented as of this encounter Advance Directives Latest Code Status on File Code Status Date Activated Date Inactivated Comments Full Code 11/10/2023 3:07 AM This order reflects the patients wishes and were consensually agreed upon. Question Answer Comments Discussion of Advance Directives occurred with: Patient Does the patient have a Living Will? Yes, not currently available Does the patient have Health Care Power of Scrap Worker? Yes, not currently available Code Status History [...] Advance Directives occurred with: Patient Care Teams Nascar Driver Relationship Specialty Start Date End Date Isrrael Bolivar DO [address] [place] [address] PCP - General Family Medicine 11/24/10 documented as of this encounter
--- OUTSIDE RECORDS SUMMARY | 2024-05-05 22:04 | External Medical Summary ---
Author Name Unknown Address Unknown Organization K1F:LABORATORY [facility] - [address] [place], [place] [address] [address] Laboratory Report Ordering Provider Test Date Status ONELIA BUSTOS 11/10/2023 01:22:10 Final Observation Date Value Abnormality Reference (Units ) Status Bacteria identified in Specimen by Culture 11/10/2023 01:22:10 No growth Final Test: Culture, Blood (Site 2 )
Specimen Source: Blood, Venous
Specimen Type: Blood
Specimen Date: 11/10/2023 1:22 AM
Result Date: 11/15/2023 2:01 AM
Result Status: Final result
Resulting Lab: LABORATORY [facility]
[address] [place] [address]
[place] [address]

CULTURE

No growth

null Performing Location LABORATORY [facility] - [address] [place] [address] Ave. [place] [address]
--- OUTSIDE RECORDS SUMMARY | 2024-05-05 22:04 | External Medical Summary | Summary of Care ---
Author Name Unknown Organization [facility] Address [address] [place] [address] Phone [phone] Care Team Providers Care Rnfa Name Role Phone Isrrael Bolivar DO Primary Care Provider [phone] Reason for Visit * Auth/Cert Specialty Diagnoses / Procedures Referred By Albin t Referred To Contact Referral ID Status Reason Start Date Expiration Date Visits Re quested Visits Authorized [id number] Encounter Details Date Type Department Care Team (Latest Contact Info) Description 11/10/2023 11:02 AM EST - 11/10/2023 11:59 PM [facility] Hospital Encounter Cardiac Studies, [facility] [address] [place] [address] Discharge Disposition: Home - Self Care Allergies No known active allergiesdocumented as of this encounter (statuses as of 11/11/2023) Medications Medication Sig Dispensed Refills Start Date [...] as of this encounter (statuses as of 11/11/2023) Active Problems Problem Noted Date Diagnosed Date Leg edema 11/10/2023 PAD (peripheral artery disease) 11/10/2023 Elevated transaminase level 11/10/2023 Coronary artery disease invo lving [place] coronary artery of [place] heart without angina pectoris 11/10/2023 Abnormal nuclear [...] as of this encounter (statuses as of 11/11/2023) Resolved Problems Problem Noted Date Diagnosed Date Resolved Date Cardiac/pericardial tamponade 11/02/2022 11/05/2022 Hypoxemia 11/24/2018 11/27/2018 Cardiac arrest 11/24/2010 07/14/2011 Ventricular fibrillation 11/24/2010 Acute non Q wave myocardial infarction 11/24/2010 07/14/2011 HTN, goal below 130/80 11/24/201005/11 Overview: Per HTN Protocol #27. documented as of this encounter (statuses as of 11/11/2023) Immunizations Name Administration Dates Next Due Pneumococcal [...] 12/09/2023 9:00 AM EDT Appointment Cardiac Studies, [facility] [address] [place] [address] 02/16/2024 10:00 AM EDT Office Visit Cardiology, [place] [address] [place] [address] Nel Rajan PA-C [address] [place] [address] 04/04/2024 9:00 AM EDT Cardiac Studies Cardiology, [place] [address] [place] [address] [facility] [address] [place] [address] Health Maintenance Due Date Last Done Comments [...] this encounter Medical Devices Implanted Type Area Television Installer Device Identifier Shelf Expiration Date Model / Serial / Lot Lens 21.0 Jerome - [id number] - [id number] Implanted:Qty: 1 on 01/28/2023 by Christian Woo, DO at OR [facility] Lens Right: Eye [employer] 10/12/2025 CNA0T0.210 / [id number] / Lens 20.5 [facility] - [id number] 135 - [id number] Implanted:Qty: 1 on 01/04/2023 by Christian Woo, DO at OR [facility] Left: Eye [employer] 07/15/2025 CNA0T0.205 / [id number] 135 / documented as of this encounter Procedures Procedure Name Priority Date/Time Associated Diagnosis Comments ECHO, COMPLETE (2D), TRANS-THORACIC Routine 11/10/2023 12:01 PM EST Cardiac arrhythmia, unspecified documented in this encounter Results * ECHO, COMPLETE (2D), TRANS-THORACIC (11/10/2023 12:01 PM EST) LEFT VENTRICULAR EJECTION FRACTION 54 % [facility] CARDIOLOGY 11/10/2023 11:1 3 AM EST Yuri YOST ECHOCARDIOLOGY [facility] CARDIOLOGY documented in this encounter Advance Directives Latest Code Status on File Code Status Date Activated Date Inactivated Comments Full Code 11/10/2023 3:07 AM This orde r reflects the patients wishes and were consensually agreed upon. Question Answer Comments Discussion of Advance Directives occurred with: Patient Does the patient have a Living Will? Yes, not currently available Does the patient have Health Care Power of Counter Clerk [employer]? Yes, not currently available Code Status History [...] Advance Directives occurred with: Patient Care Teams Rnfa Relationship Specialty Start Date End Date Isrrael Bolivar DO [address] [place] [address] PCP - General Family Medicine 11/24/10 documented as of this encounter
--- OUTSIDE RECORDS SUMMARY | 2024-05-05 22:04 | External Medical Summary ---
Author Name Unknown Address Unknown Organization K1F:LABORATORY [facility] - [address] [place] [address] Laboratory Report Ordering Provider Test Date Status REINALDO WEEMS 11/10/2023 11:19:00 Final Observation Date Value Abnormality Reference (Units ) Status Troponin T 11/10/2023 11:19:00 21 Above high normal < =14 (ng/L) Final Performing Location LABORATORY [facility] - [address] [place] [address]
--- OUTSIDE RECORDS SUMMARY | 2024-05-05 22:04 | External Medical Summary ---
Author Name Unknown Address Unknown Organization K1F:LABORATORY [facility] - [address] [place] [address] Laboratory Report Ordering Provider Test Date Status REINALDO WEEMS 11/12/2023 05:05:00 Final Observation Date Value Abnormality Reference (Units ) Status WBC, Total 11/12/2023 05:05:00 7.03 4.00-10.80 (K/uL) Final RBC 11/12/2023 05:05:00 5.03 3.85-5.15 (M/uL) Final Hemoglobin 11/12/2023 05:05:00 12.0 12.0-15.3 (g/dL) Final HCT 11/12/2023 05:05:00 39.1 36.0-45.2 (%) Final MCV 11/12/2023 05:05:00 77.7 81.5-97.5 (fL) Final MCH 11/12/2023 05:05:00 23.9 27.0-34.0 (pg) Final MCHC 11/12/2023 05:05:00 30.7 32.0-36.0 (g/dL) Final RDW 11/12/2023 05:05:00 19.4 11.5-15.5 (%) Final Platelets 11/12/2023 05:05:00 146 140-400 (K/uL) Final MPV 11/12/2023 05:05:00 11.8 6.6-11.1 (fL) Final Nucleated erythrocytes/100 leukocytes [Ratio] in Blood by Automated count 11/12/2023 05:05:00 0 <=0 (/100 WBCs) Final Performing Location LABORATORY [facility] - [address] [place] [address]
--- OUTSIDE RECORDS SUMMARY | 2024-05-05 22:04 | External Medical Summary | Summary of Care ---
Author Name Unknown Organization [facility] Address [address] [facility] [address] Phone [phone] Care Team Providers Care Blood And Plasma Laboratory Assistant Name Role Phone Julio Bolivarn Robinson Primary Care Provider [phone] Encounter Details Date Type Department Care Team (Late st Contact Info) Description 11/14/2023 Orders Only PATIENT PORTAL DO NOT DELETE THIS DEPT USED BY [place] [id number] Allergies No known active allergiesdocumented as of this encounter (statuses as of 11/14/2023) Medications Medication Sig Dispensed Refills Start Date [...] as of this encounter (statuses as of 11/14/2023) Active Problems Problem Noted Date Diagnosed Date Leg edema 11/10/2023 PAD (peripheral artery disease) 11/10/2023 Elevated transaminase level 11/10/2023 Coronary artery disease invo lving [place] coronary artery of [place] heart without angina pectoris 11/10/2023 Abnormal nuclear [...] as of this encounter (statuses as of 11/14/2023) Resolved Problems Problem Noted Date Diagnosed Date Resolved Date Cardiac/pericardial tamponade 11/02/2022 11/05/2022 Hypoxemia 11/24/2018 11/27/2018 Cardiac arrest 11/24/2010 07/14/2011 Ventricular fibrillation 11/24/2010 Acute non Q wave myocardial infarction 11/24/2010 07/14/2011 HTN, goal below 130/80 11/24/201005/11 Overview: Per HTN Protocol #27. documented as of this encounter (statuses as of 11/14/2023) Immunizations Name Administration Dates Next Due Pneumococcal [...] Visit Cardiology [place] [address] [place] [address] Sari Oliver CRNP [address] [place] [id number] 12/09/2023 9:00 AM EDT Appointment [facility] Studies, [facility] [address] [facility] [place] [address] 02/16/2024 10:00 AM EDT Office Visit Cardiology, [place] [address] [place] [address] Nel Rajan PA-C [address] [facility] [place] [address] 04/04/2024 9:00 AM EDT Cardiac Studies Cardiology, [place] [address] [place] [address] [facility] [address] [place] [address] Health Maintenance Due Date Last Done Comments [...] this encounter Medical Devices Implanted Type Area Managing Attorney Device Identifier Shelf Expiration Date Model / Serial / Lot Lens 21.0 Jerome - [id number] - [id number] Implanted:Qty: 1 on 01/28/2023 by Christian Woo, DO at OR [facility] Lens Right: Eye [employer] 10/12/2025 CNA0T0.210 / [id number] / Lens 20.5 [employer] - [id number] 135 - [id number] Implanted:Qty: 1 on 01/04/2023 by Christian Woo, DO at OR [facility] Left: Eye [employer] 07/15/2025 CNA0T0.205 / [id number] / documented as of this encounter [...] the patient have Health Care Power of Duty Manager? Yes, not currently available Code Status History [...] Advance Directives occurred with: Patient Care Teams Blood And Plasma Laboratory Assistant Relationship Specialty Start Date End Date Isrrael Bolivar DO [address] [facility] [place] [id number] PCP - General Family Medicine 11/24/10 documented as of this encounter
--- OUTSIDE RECORDS SUMMARY | 2024-05-05 22:04 | External Medical Summary ---
Author Name Unknown Address Unknown Organization : Laboratory Report Ordering Provider Test Date Status REINALDO WEEMS 11/11/2023 16:19:53 Final Observation Date Value Abnormality Reference (Units ) Status Glucose Point of Care 11/11/2023 16:19:53 147 Above high normal 70-120 (mg/dL) Final Performing Location
--- OUTSIDE RECORDS SUMMARY | 2024-05-05 22:04 | External Medical Summary ---
Author Name Unknown Address Unknown Organization : Laboratory Report Ordering Provider Test Date Status REINALDO WEEMS 11/10/2023 07:47:59 Final Observation Date Value Abnormality Reference (Units ) Status Glucose Point of Care 11/10/2023 07:47:59 153 Above high normal 70-120 (mg/dL) Final Performing Location
--- OUTSIDE RECORDS SUMMARY | 2024-05-05 22:04 | External Medical Summary ---
Author Name Unknown Address Unknown Organization K01:LABORATORY [facility] - [address] [place] [address] Laboratory Report Ordering Provider Test Date Status REINALDO WEEMS 11/21/2023 13:06:04 Final Discharge Order Observation Date Value Abnormality Reference (Units ) Status BUN 11/21/2023 13:06:04 17 6-20 (mg/dL) Final Creatinine 11/21/2023 13:06:04 1.0 0.5-1.0 (mg/dL) Final Glomerular filtration rate/1.73 sq M.predicted [Volume Rate/Area] in Serum, Plasma or Blood by Creatinine-based formula (CKD-EPI) 11/21/2023 13:06:04 57 Below low normal >=60 (mL/min) Final eGFR is calculated based on the CKD-EPI 2020 equation SODIUM 11/21/2023 13:06:04 143 135-146 (m mol/L) Final Potassium 11/21/2023 13:06:04 3.9 3.5-5.1 (m mol/L) Final Cl 11/21/2023 13:06:04 101 98-107 (mm ol/L) Final CO2 11/21/2023 13:06:04 31 22-32 (mmo l/L) Final Anion gap 11/21/2023 13:06:04 11 7-15 (mmol /L) Final Glucose 11/21/2023 13:06:04 145 Above high normal 70 -120 (mg/dL) Final Calcium 11/21/2023 13:06:04 9.1 8.4-10.2 ( mg/dL) Final Performing Location LABORATORY [facility] - [address] [place] [address]
--- OUTSIDE RECORDS SUMMARY | 2024-05-05 22:04 | External Medical Summary ---
Author Name Unknown Address Unknown Organization : Laboratory Report Ordering Provider Test Date Status REINALDO WEEMS 11/11/2023 11:27:53 Final Observation Date Value Abnormality Reference (Units ) Status Glucose Point of Care 11/11/2023 11:27:53 173 Above high normal 70-120 (mg/dL) Final Performing Location
--- OUTSIDE RECORDS SUMMARY | 2024-05-05 22:04 | External Medical Summary | Summary of Care ---
Author Name Unknown Organization [facility] Address [address] [place] [address] Phone [phone] Care Team Providers Care Water Server Name Role Phone Isrrael Bolivar DO Primary Care Provider [phone] Reason for Visit * Reason Onset Date Comments Test Results 10/31/2023 Waiting for call Encounter Details Date Type Department Care Team ([facility] st Contact Info) Description 10/31/2023 Telephone Cardiology [place] [address] [place] [address] Nel Rajan PA-C [address] [facility] [place] [address] Test Results (Waiting for call ) Allergies No known active allergiesdocumented as of [...] artery disease) 11/10/2023 Elevated transaminase level 11/10/2023 Critical limb ischemia of le ft [...] decisions? (5 years old or older) No 12/24/2022 documented as of this encounter Miscellaneous Notes * Telephone Encounter - Makeda Acevedo LPN - 11/10/2023 12:03 PM EST Pt is currently admitted. * Telephone Encounter - Makeda Acevedo LPN - 11/07/2023 1:40 PM EST Callled granddaughter back , no answer. Will need to try again later. * Telephone Encounter - Denane Bowling OSA - 11/07/2023 1:30 PM EST Person calling: Lily Relationship to patient: grand daughter Number to return call: [phone] Reason for call: calling in stating that her Mom(Pina) and grandmother Ashley are confused about what they were told in regards to the test results and moving forward and she is asking for a call back to get things clarified. Pharmacy: na Provider Name:Mohini * Telephone Encounter - Mimi Rajput NRCMA - 11/04/2023 4:04 PM EST Spoke with Pina and pt is still undecided on the cath. DAVID Lantigua * Telephone Encounter - Nel Rajan PA-C - 10/31/2023 1:30 PM EST Call placed to patient to review results of nuclear stress test. Spoke with patients daughter who is her primary caregiver and handles her medical needs. Discussed stress test is positive for reversible ischemia and recommended cardiac catheterization. The risks of cardiac catheterization were described in detail including but not limited to bleeding, infection, vascular injury, kidney damage, heart attack, stroke, and need for emergency open heart surgery. Daughter to review with patient and call back later today with a decision. Nel Rajan PA-C documented in this encounter Plan of Treatment Upcoming Encounters Date Type Department Care Team (Late st Contact Info) Description 12/09/2023 9:00 AM EDT Appointment Cardiac Studies, [facility] [address] [facility] [place] [address] 02/16/2024 10:00 AM EDT Office Visit Cardiology [place] [address] [place] [address] Nel Rajan PA-C [address] [facility] [place] [address] 04/04/2024 9:00 AM EDT Cardiac Studies Cardiology [place] [address] [facility] [place] [address] [place] [address] [facility] [place] [address] Health Maintenance Due Date Last Done Comments Depression Screening 1947 Diabetic Foot Exam 1955 DTaP,Tdap,and Td Vaccines (1 - Tdap) 01/22/1956 Zoster Vaccines (1 of 2) 1987 Albumin/Creatinine Ratio 12/03/2015 12/02/2014 *SPIROMETRY ONCE FOR ASTHMA-ADULT 11/07/2016 HbA1c 05/02/2023 11/02/2022, 09/20, 01/31/2022, Additional history exists COVID-19 Vaccine (1 - 2022- season) 2023 Influenza Vaccine (FLU [...] this encounter Medical Devices Implanted Type Area Store Manager Device Identifier Shelf Expiration Date Model / Serial / Lot Lens 21.0 [facility] - [id number] - [id number] Implanted:Qty: 1 on 01/28/2023 by Christian Woo, DO at OR [facility] Lens Right: Eye [employer] 10/12/2025 CNA0T0.210 / [id number] / Lens 20.5 [facility] - [id number] 135 - [id number] Implanted:Qty: 1 on 01/04/2023 by Christian Woo, DO at OR [facility] Left: Eye [employer] 07/15/2025 CNA0T0.205 / [id number] / documented as of this encounter [...] patient have Health Care Power of Manager Enterprise? Yes, not currently available Code Status History [...] Advance Directives occurred with: Patient Care Teams Water Server Relationship Specialty Start Date End Date Isrrael Bolivar DO [address] [place], [place] [phone] PCP - General Family Medicine 11/24/10 documented as of this encounter
--- OUTSIDE RECORDS SUMMARY | 2024-05-05 22:04 | External Medical Summary ---
Author Name Unknown Address Unknown Organization : Laboratory Report Ordering Provider Test Date Status REINALDO WEEMS 11/11/2023 21:49:18 Final Observation Date Value Abnormality Reference (Units ) Status Glucose Point of Care 11/11/2023 21:49:18 134 Above high normal 70-120 (mg/dL) Final Performing Location
--- OUTSIDE RECORDS SUMMARY | 2024-05-05 22:04 | External Medical Summary ---
Author Name Unknown Address Unknown Organization : Laboratory Report Ordering Provider Test Date Status REINALDO WEEMS 11/12/2023 07:15:52 Final Observation Date Value Abnormality Reference (Units ) Status Glucose Point of Care 11/12/2023 07:15:52 146 Above high normal 70-120 (mg/dL) Final Performing Location
--- OUTSIDE RECORDS SUMMARY | 2024-05-05 22:04 | External Medical Summary ---
Author Name Unknown Address Unknown Organization : Laboratory Report Ordering Provider Test Date Status REINALDO WEEMS 11/10/2023 21:20:08 Final Observation Date Value Abnormality Reference (Units ) Status Glucose Point of Care 11/10/2023 21:20:08 208 Above high normal 70-120 (mg/dL) Final Performing Location
--- OUTSIDE RECORDS SUMMARY | 2024-05-05 22:04 | External Medical Summary ---
Author Name Unknown Address Unknown Organization : Laboratory Report Ordering Provider Test Date Status REINALDO WEEMS 11/10/2023 17:04:06 Final Observation Date Value Abnormality Reference (Units ) Status Glucose Point of Care 11/10/2023 17:04:06 152 Above high normal 70-120 (mg/dL) Final Performing Location
--- OUTSIDE RECORDS SUMMARY | 2024-05-05 22:04 | External Medical Summary ---
Author Name Unknown Address Unknown Organization : Laboratory Report Ordering Provider Test Date Status REINALDO WEEMS 11/12/2023 11:15:31 Final Observation Date Value Abnormality Reference (Units ) Status Glucose Point of Care 11/12/2023 11:15:31 178 Above high normal 70-120 (mg/dL) Final Performing Location
--- OUTSIDE RECORDS SUMMARY | 2024-05-05 22:04 | External Medical Summary | Summary of Care ---
Author Name Unknown Organization [facility] Address [address] [place] [address] Phone [phone] Care Team Providers Care Claim Processor Name Role Phone Isrrael Bolivar DO Primary Care Provider [phone] Reason for Visit * Reason Comments Outpatient Testing Encounter Details Date Type Department Care Team ([facility] Contact Info) Description 11/21/2023 1:00 PM EST Laboratory Laboratory, [facility] [address] [place] [phone] [facility], Lab [address] [place] [address] Chronic diastolic congestive heart failure (HCC) Allergies No known active allergiesdocumented as [...] level 11/10/2023 Coronary artery disease invo lving robinson coronary 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 11/10/2023 Abnormal nuclear [...] 11/21/2023 1:30 PM EST Office Visit Cardiology [facility] [address] [place] [address] Sari Oliver CRNP [address] [place] [address] 12/09/2023 9:00 AM EDT Appointment Cardiac Studies, [facility] [address] [place] [address] 02/16/2024 10:00 AM EDT Office Visit Cardiology, [place] [address] [place] [address] Nel Rajan PA-C [address] [place] [address] 04/04/2024 9:00 AM EDT Cardiac Studies Cardiology, [place] [address] [place] [address] [facility] [address] [place] [address] Pending Results Name Type Priority Associated Diagnoses Date /Time BASIC METABOLIC PANEL Lab Routine Chronic diastolic congestive heart failure (HCC) 11/21/2023 1:06 PM EST Health Maintenance Due Date Last Done Comments [...] this encounter Medical Devices Implanted Type Area Quality Assurance Tech Device Identifier Shelf Expiration Date Model / Serial / Lot Lens 21.0 [employer] - [id number] - [id number] Implanted:Qty: 1 on 01/28/2023 by Christian Woo DO at OR [facility] Lens Right: Eye [employer] 10/12/2025 CNA0T0.210 / [id number] / Lens 20.5 [facility] - [id number] 135 - [id number] Implanted:Qty: 1 on 01/04/2023 by Christian Woo DO at OR [facility] Left: Eye [employer] 07/15/2025 CNA0T0.205 / [id number] / documented as of this encounter Visit Diagnoses Diagnosis Chronic diastolic congestive heart failure (HCC) Chronic diastolic heart failure documented in this encounter Advance Directives Latest [...] the patient have Health Care Power of Traffic Court Referee? Yes, not currently available Code Status History [...] Advance Directives occurred with: Patient Care Teams Claim Processor Relationship Specialty Start Date End Date Isrrael Bolivar DO [address] [place] [address] PCP - General Family Medicine 11/24/10 documented as of this encounter
--- OUTSIDE RECORDS SUMMARY | 2024-05-05 22:04 | External Medical Summary ---
Author Name Unknown Address Unknown Organization : Laboratory Report Ordering Provider Test Date Status REINALDO WEEMS 11/11/2023 07:14:23 Final Observation Date Value Abnormality Reference (Units) Status Glucose Point of Care 11/11/2023 07:14:23 >500 Above upper panic limits 70-120 (mg/dL) Final POCT DEVICE COMMENT 11/11/2023 07:14:23 Notified Provider Final Performing Location
--- OUTSIDE RECORDS SUMMARY | 2024-05-05 22:04 | External Medical Summary ---
Author Name Unknown Address Unknown Organization K1F:LABORATORY [facility] - [address] [place], [place] [address] [address] Laboratory Report Ordering Provider Test Date Status ONELIA BUSTOS 11/10/2023 01:22:10 Final Observation Date Value Abnormality Reference (Units ) Status Bacteria identified in Specimen by Culture 11/10/2023 01:22:10 No growth Final Test: Culture, Blood
Natali peres Source: Blood, Venous
Specimen Type: Blood
Specimen Date: 11/10/2023 1:22 AM
Result Date: 11/15/2023 2:01 AM
Result Status: Final result
Resulting Lab: LABORATORY [facility]
[address] [place] [address]
[place] [address]

CULTURE

No growth

null Performing Location LABORATORY [facility] - [address] [place] [address] [address]. [place] [address]
--- OUTSIDE RECORDS SUMMARY | 2024-05-05 22:04 | External Medical Summary ---
Author Name Unknown Address Unknown Organization K1F:LABORATORY [facility] - [address] [facility] [place] [address] Laboratory Report Ordering Provider Test Date Status SANTIAGO VALERIO 11/10/2023 00:43:08 Final Observation Date Value Abnormality Reference (Units ) Status BUN 11/10/2023 00:43:08 19 6-20 (mg/dL) Final Creatinine 11/10/2023 00:43:08 1.0 0.5-1.0 (mg/dL) Final Glomerular filtration rate/1.73 sq M.predicted [Volume Rate/Area] in Serum, Plasma or Blood by Creatinine-based formula (CKD-EPI) 11/10/2023 00:43:08 55 Below low normal >=60 (mL/min) Final eGFR is calculated based on the CKD-EPI 2020 equation SODIUM 11/10/2023 00:43:08 144 135-146 (m mol/L) Final Potassium 11/10/2023 00:43:08 4.1 3.5-5.1 (m mol/L) Final Cl 11/10/2023 00:43:08 107 98-107 (mm ol/L) Final CO2 11/10/2023 00:43:08 26 22-32 (mmo l/L) Final Anion gap 11/10/2023 00:43:08 11 7-15 (mmol /L) Final Glucose 11/10/2023 00:43:08 149 Above high normal 70 -120 (mg/dL) Final Albumin 11/10/2023 00:43:08 3.5 Below low normal 3.8 -5.0 (g/dL) Final AST (Aspartate aminotransferase) 11/10/2023 00:43:08 187 Above high normal 10-35 (U/L) Final Result may be falsely elevat ed due to hemolysis. Alk Phos 11/10/2023 00:43:08 87 35-130 (U/ L) Final Bilirubin, Total 11/10/2023 00:43:08 0.5 <=1 .2 (mg/dL) Final Calcium 11/10/2023 00:43:08 9.4 8.4-10.2 ( mg/dL) Final Protein 11/10/2023 00:43:08 6.1 6.0-8.3 (g /dL) Final ALT (Alanine aminotransferase) 11/10/2023 00:43:08 79 Above high normal 10-35 (U/L) Final Performing Location LABORATORY [facility] - [facility] [address] [place] [address]
--- OUTSIDE RECORDS SUMMARY | 2024-05-05 22:04 | External Medical Summary ---
Author Name Unknown Address Unknown Organization K1F:LABORATORY [facility] - [address] [place] [address] Laboratory Report Ordering Provider Test Date Status SAMIR LEEKAREN 11/11/2023 04:32:00 Final Observation Date Value Abnormality Reference (Units ) Status BUN 11/11/2023 04:32:00 16 6-20 (mg/dL) Final Creatinine 11/11/2023 04:32:00 0.8 0.5-1.0 (mg/dL) Final Glomerular filtration rate/1.73 sq M.predicted [Volume Rate/Area] in Serum, Plasma or Blood by Creatinine-based formula (CKD-EPI) 11/11/2023 04:32:00 73 >=60 (mL/min) Final eGFR is calculated based on the CKD-EPI 2020 equation SODIUM 11/11/2023 04:32:00 143 135-146 (m mol/L) Final Potassium 11/11/2023 04:32:00 3.4 Below low normal 3.5 -5.1 (mmol/L) Final Cl 11/11/2023 04:32:00 105 98-107 (mm ol/L) Final CO2 11/11/2023 04:32:00 27 22-32 (mmo l/L) Final Anion gap 11/11/2023 04:32:00 11 7-15 (mmol /L) Final Glucose 11/11/2023 04:32:00 117 70-120 (mg /dL) Final Calcium 11/11/2023 04:32:00 9.0 8.4-10.2 ( mg/dL) Final Performing Location [facility]ORY [facility] - [address] [facility] [place] [address]
--- OUTSIDE RECORDS SUMMARY | 2024-05-05 22:04 | External Medical Summary ---
Author Name Unknown Address Unknown Organization : Laboratory Report Ordering Provider Test Date Status REINALDO WEEMS 11/10/2023 11:34:16 Final Observation Date Value Abnormality Reference (Units ) Status Glucose Point of Care 11/10/2023 11:34:16 170 Above high normal 70-120 (mg/dL) Final Performing Location
--- OUTSIDE RECORDS SUMMARY | 2024-05-05 22:05 | External Medical Summary ---
Author Name Unknown Address Unknown Organization K1F:LABORATORY [facility] - [address] [facility] [place] [address] Laboratory Report Ordering Provider Test Date Status SANTIAGO VALERIO 11/10/2023 00:43:08 Final Observation Date Value Abnormality Reference (Units ) Status Body temperature 11/10/2023 00:43:08 37.0 (C) Final pH of Venous blood 11/10/2023 00:43:08 7.377 7.320-7.430 (units) Final Carbon dioxide [Partial pressure] in Venous blood 11/10/2023 00:43:08 51.5 40.0-60.0 (mmHg) Final Oxygen [Partial pressure] in Venous blood 11/10/2023 00:43:08 34.4 25.0-50.0 (mmHg) Final Base excess, Capillary 11/10/2023 00:43:08 4.0 Above high normal -2.0-2.0 (mmol/L) Final Hemoglobin [Mass/volume] in Blood by Oximetry 11/10/2023 00:43:08 11.3 Below low normal 12.0-15.3 (g/dL) Final Oxyhemoglobin, Venous (FO2HB) 11/10/2023 00:43:08 52.6 40.0-85.0 (% total Hgb) Final Carboxyhemoglobin 11/10/2023 00:43:08 1.0 <=1.5 (% total Hgb) Final Smokers: 0-9.0 % Methemoglobin 11/10/2023 00:43:08 0.5 <=1.5 (% total Hgb) Final Deoxyhemoglobin/Hemoglobin.t otal in Venous blood 11/10/2023 00:43:08 45.9 (% total Hgb) Peg l Oxygen content in Venous blood 11/10/2023 00:43:08 8.4 7.0-18.0 (%vol) Final Bicarbonate, Venous, POC (i-STAT) 11/10/2023 00:43:08 29.6 23.0-31.0 (mmol/L) Fi nal Performing Location LABORATORY [facility] - [address] [place] [address]
--- OUTSIDE RECORDS SUMMARY | 2024-05-05 22:05 | External Medical Summary ---
Author Name Unknown Address Unknown Organization K1F:LABORATORY [facility] - [place] [address] Laboratory Report Ordering Provider Test Date Status SANTIAGO VALERIO 11/10/2023 00:43:08 Final Observation Date Value Abnormality Reference (Units ) Status Troponin T 11/10/2023 00:43:08 13 <=14 (ng/ L) Final Performing Location LABORATORY [facility] - [address] [place] [address]
--- OUTSIDE RECORDS SUMMARY | 2024-05-05 22:05 | External Medical Summary ---
Author Name Unknown Address Unknown Organization K01:[facility] [address] [facility] [address] Laboratory Report Ordering Provider Test Date Status CANDICE LEE 11/10/2023 00:43:08 Final Observation Date Value Abnormality Reference (Units ) Status HbA1C 11/10/2023 00:43:08 7.7 Above high normal 4. 0-5.6 (%) Final The use of HbA1c to monitor glycemic status is based on normal hemoglobin and HbA composition. This test should not be used in patients with abnormal hemoglobin that affects the half life of the red blood cell or the in vivo glycation rates. Glucose, estimated average 11/10/2023 00:43:08 174 Above high normal <126 (mg/dL) Kishan al Performing Location [facility] [place] [address] [facility] [address] [facility] [address]
--- OUTSIDE RECORDS SUMMARY | 2024-05-05 22:05 | External Medical Summary ---
Author Name Unknown Address Unknown Organization K1F:LABORATORY [facility] - [address] [place] [address] Laboratory Report Ordering Provider Test Date Status SANTIAGO VALERIO 11/10/2023 00:43:08 Final Exclude Heart Failure: <300 pg/mL
Diagnose Heart Failure:
Age <50 yr: >450 pg/mL
50-75 yr: >900 pg/mL
>75 yr: >1800 pg/mL
GFR is 30-59 mL/min: >1200 pg/mL or Age- adjusted values
GFR <30 mL/min: do not use, not reliable

Prognostic threshold: 1000 pg/mL Observation Date Value Abnormality Reference (Units ) Status BNP, Pro-hormone 11/10/2023 00:43:08 1492 Above high no rmal <300 (pg/mL) Final Performing Location LABORATORY [facility] - [address] [place] [address]
--- OUTSIDE RECORDS SUMMARY | 2024-05-05 22:05 | External Medical Summary ---
Author Name Unknown Address Unknown Organization K1F:LABORATORY [facility] - [address] [place] [address] Laboratory Report Ordering Provider Test Date Status SANTIAGO VALERIO 11/10/2023 00:43:08 Final Observation Date Value Abnormality Reference (Units ) Status Magnesium 11/10/2023 00:43:08 2.2 1.5-2.6 (m g/dL) Final Performing Location LABORATORY [facility] - [address] [place] [address]
--- OUTSIDE RECORDS SUMMARY | 2024-05-05 22:05 | External Medical Summary ---
Author Name Unknown Address Unknown Organization K1F:LABORATORY [facility] - [address] [facility] [place] [address] Laboratory Report Ordering Provider Test Date Status SANTIAGO VALERIO 11/10/2023 00:43:08 Final Observation Date Value Abnormality Reference (Units ) Status SYNC LEUKOCYTES IN BLOOD BY AUTOMATED COUNT 11/10/2023 00:43:08 6.70 4.00-10.80 (K/uL) Final Segs 11/10/2023 00:43:08 64.9 40.0-75.0 (%) Final Lymphs % 11/10/2023 00:43:08 23.0 18.0-42.0 (%) Final Monos 11/10/2023 00:43:08 10.6 1.0-11.0 (%) Final Eosinophils 11/10/2023 00:43:08 1.3 0.0-6.0 (%) Final Basos 11/10/2023 00:43:08 0.1 0.0-2.0 (%) Final Immature Granulocyte, Percent 11/10/2023 00:43:08 0.1 0.0-2.0 (%) Final Absolute Segs 11/10/2023 00:43:08 4.34 1.80-7.70 (K/uL) Final Lymphs, absolute 11/10/2023 00:43:08 1.54 1.00-4.80 (K/ul) Final Monos, Abs 11/10/2023 00:43:08 0.71 0.00-1.10 (K/uL) Final Eos, Abs 11/10/2023 00:43:08 0.09 0.00-0.70 (K/uL) Final Basos, Abs 11/10/2023 00:43:08 0.01 0.00-0.20 (K/uL) Final Immature Granulocytes, Number 11/10/2023 00:43:08 0.01 0.00-0.20 (K/uL) Final Performing Location LABORATORY [facility] [address] [facility] [address] [place] [address]
--- OUTSIDE RECORDS SUMMARY | 2024-05-05 22:05 | External Medical Summary ---
Author Name Unknown Address Unknown Organization K1F:LABORATORY [facility] - [address] [place] [address] Laboratory Report Ordering Provider Test Date Status SANTIAGO VALERIO 11/10/2023 00:43:08 Final Warfarin Therapy
INR: 2 .0-3.0 conventional anticoagulation
INR: 2.5- 3.5 high intensity anticoagulation Observation Date Value Abnormality Reference (Units ) Status PT 11/10/2023 00:43:08 15.4 Above high normal 11 .6-15.2 (seconds) Final INR 11/10/2023 00:43:08 1.2 0.8-1.2 Final Performing Location LABORATORY [facility] - [address] [place] [address]
--- OUTSIDE RECORDS SUMMARY | 2024-05-05 22:05 | External Medical Summary ---
Author Name Unknown Address Unknown Organization K1F:LABORATORY [facility] - [address] [place] [address] Laboratory Report Ordering Provider Test Date Status SANTIAGO VALERIO 11/10/2023 00:43:08 Final Observation Date Value Abnormality Reference (Units ) Status WBC, Total 11/10/2023 00:43:08 6.70 4.00-10.80 (K/uL) Final RBC 11/10/2023 00:43:08 4.66 3.85-5.15 (M/uL) Final Hemoglobin 11/10/2023 00:43:08 11.5 Below low normal 12.0-15.3 (g/dL) Final HCT 11/10/2023 00:43:08 37.3 36.0-45.2 (%) Final MCV 11/10/2023 00:43:08 80.0 81.5-97.5 (fL) Final MCH 11/10/2023 00:43:08 24.7 27.0-34.0 (pg) Final MCHC 11/10/2023 00:43:08 30.8 32.0-36.0 (g/dL) Final RDW 11/10/2023 00:43:08 19.1 11.5-15.5 (%) Final Platelets 11/10/2023 00:43:08 125 Below low normal 140-400 (K/uL) Final MPV 11/10/2023 00:43:08 11.8 6.6-11.1 (fL) Final Nucleated erythrocytes/100 leukocytes [Ratio] in Blood by Automated count 11/10/2023 00:43:08 0 <=0 (/100 WBCs) Final Performing Location LABORATORY [facility] - [address] [place] [address]
--- OUTSIDE RECORDS SUMMARY | 2024-05-05 22:05 | External Medical Summary ---
Author Name Unknown Address Unknown Organization [id number]:[facility] - [address] [facility] [place] [address] Laboratory Report Ordering Provider Test Date Status SANTIAGO VALERIO 11/10/2023 00:18:51 Final ADMITTED patient Observation Date Value Abnormality Reference (Units ) Status Adenovirus DNA [Presence] in Nasopharynx by QUEENIE with non-probe detection 11/10/2023 00:18:51 Negative Negative Final Human coronavirus 229E RNA [Presence] in Nasopharynx by QUEENIE with non-probe detection 11/10/2023 00:18:51 Negative Negative Final Human coronavirus HKU1 RNA [Presence] in Nasopharynx by QUEENIE with non-probe detection 11/10/2023 00:18:51 Negative Negative Final Human coronavirus NL63 RNA [Presence] in Nasopharynx by QUEENIE with non-probe detection 11/10/2023 00:18:51 Negative Negative Final Human coronavirus OC43 RNA [Presence] in Nasopharynx by QUEENIE with non-probe detection 11/10/2023 00:18:51 Negative Negative Final SARS-CoV-2 (COVID-19) RNA [Presence] in Nasopharynx by QUEENIE with non-probe detection 11/10/2023 00:18:51 Negative Negative Final Human metapneumovirus RNA [Presence] in Nasopharynx by QUEENIE with non-probe detection 11/10/2023 00:18:51 Negative Negative Final Rhinovirus+Enterovirus RNA [Presence] in Nasopharynx by QUEENIE with non-probe detection 11/10/2023 00:18:51 Negative Negative Final Influenza virus A RNA [Presence] in Nasopharynx by QUEENIE with non-probe detection 11/10/2023 00:18:51 Negative Negative Final Influenza virus B RNA [Presence] in Nasopharynx by QUEENIE with non-probe detection 11/10/2023 00:18:51 Negative Negative Final Parainfluenza virus 1 RNA [Presence] in Nasopharynx by QUEENIE with non-probe detection 11/10/2023 00:18:51 Negative Negative Final Parainfluenza virus 2 RNA [Presence] in Nasopharynx by QUEENIE with non-probe detection 11/10/2023 00:18:51 Negative Negative Final Parainfluenza virus 3 RNA [Presence] in Nasopharynx by QUEENIE with non-probe detection 11/10/2023 00:18:51 Negative Negative Final Parainfluenza virus 4 RNA [Presence] in Nasopharynx by QUEENIE with non-probe detection 11/10/2023 00:18:51 Negative Negative Final Respiratory syncytial virus RNA [Presence] in Nasopharynx by QUEENIE with non-probe detection 11/10/2023 00:18:51 Negative Negative Final Bordetella pertussis.pertussis toxin promoter region [Presence] in Nasopharynx by QUEENIE with non-probe detection 11/10/2023 00:18:51 Negative Negative Final Chlamydophila pneumoniae DNA [Presence] in Nasopharynx by QUEENIE with non-probe detection 11/10/2023 00:18:51 Negative Negative Final Mycoplasma pneumoniae DNA [Presence] in Nasopharynx by QUEENIE with non-probe detection 11/10/2023 00:18:51 Negative Negative Final Bordetella parapertussis [id number] DNA [Presence] in Nasopharynx by QUEENIE with non-probe detection 11/10/2023 00:18:51 Negative Negative Final
The primers that detect Rhinovirus may cross react with some Enterorviruses. The validation of bronchial specimens, tracheal aspirates, and throats for this assay was developed and performance characteristics determined by [facility]. The validation of alternate specimen types has not been cleared or approved by the U.S. Food and Drug Administration (FDA). It has been determined that such clearance or approval is not necessary. Performing Location [address] [place] [address]
[2024-05-05 23:29] LABS: BUN Creatinine Ratio 19.1 (10-20); Calcium 9.8 mg/dl (8.6-10.3); Creatinine Clr Calc Pharmacy 36.4 ml/min; Est GFR (African American) 63.2 ml/min; Est GFR (Non-African American) 54.5 ml/min; Potassium 3.1 mmol/L (3.5-5.1)
[2024-05-05 23:48] LABS: Basophils # (auto) 0.01 K/uL (0.00-0.20); Basophils % (auto) 0.2 %; Eosinophils # (auto) 0.08 K/uL (0.00-0.50); Eosinophils % (auto) 1.2 %; Hematocrit (blood only) 46.2 % (37.0-47.0); Hemoglobin 14.6 g/dl (12.0-16.0); Immature Granulocytes # (auto) 0.02 K/uL (0.01-0.20); Immature Granulocytes % (auto) 0.3 %; Lymphocytes # (auto) 1.63 K/uL (1.20-3.40); Lymphocytes % (auto) 24.7 %; Mean Corpuscular Hemoglobin 24.5 pg (25.0-34.0); Mean Corpuscular Hgb Conc 31.6 g/dL (32.0-36.0); Mean Corpuscular Volume 77.6 fL (80.0-100.0); Mean Platelet Volume 11.4 fL (9.4-12.4); Monocytes # (auto) 0.65 K/uL (0.11-0.59); Monocytes % (auto) 9.9 %; Neutrophils % (auto) 63.7 %; Platelet Count 202 K/uL (130-400); RDW Coefficient of Variation 20.8 % (11.5-14.5); RDW Standard Deviation 55.6 fL (36.4-46.3); Red Blood Count 5.95 M/uL (4.20-5.40); White Blood Count 6.59 K/ul (4.8-10.8)
[2024-05-06 00:08] LABS: Anisocytosis Present; Polychromasia 1+; Rouleaux 1+; Tear Drop Cells 1+
--- NOTE | 2024-05-06 00:29 | Emergency Department Note ---
Impression & Plan CHF (congestive heart failure), Bilateral edema of lower extremity ED Provider Note NAME: MING YADAV AGE: 89 SEX: F : 1935 ARRIVES VIA: Walk-In INFORMANT: Patient, ED PROVIDER(S): Raleigh Fried MD CHIEF COMPLAINT: Bilateral extremity swelling HPI: This is a 89-year-old female sent for bilateral lower extremity swelling. Patient is with her caretakers at home. They state that she has had increasing leg swelling. She went to an outside hospital was told that there is notes of abnormalities. She was given 2 antibiotics for suspected cellulitis. She was discharged. Reportedly her swelling has gone down slightly since this time while on her diuretic. She notes that is still swollen, painful. She has no pain in her feet however. She reports exertional dyspnea. She reports chronic back pain for 4+ weeks. ROS: See above HPI for pertinent positives & negatives. A total of 10 systems reviewed and were otherwise negative. PAST MEDICAL HISTORY: See Below PAST SURGICAL HISTORY: See Below FAMILY HISTORY: See Below SOCIAL HISTORY: See Below HOME MEDICATIONS: See Below ALLERGIES: See Below VITALS: See Below PHYSICAL EXAMINATION: General: Chronically ill-appearing Head: Normocephalic and atraumatic Eyes: Normal inspection, extraocular muscles intact Ear, nose, throat: Normal external exam Neck: Normal range of motion Respiratory: slight crackles at the bases Cardiovascular: Regular rate/rhythm, no murmur GI: soft, nontender, no guarding or rebound Extremities: Bilateral lower extremity swelling, 2+, bilateral extremity redness without tenderness, 2+ pulses bilateral lower extremities Neuro: The patient awake and alert, appropriately conversive, no focal deficits, symmetric faces Skin: Warm, dry, and intact MEDICAL DECISION MAKING: This is a 89-year-old female presenting for bilateral extremity swelling. Patient has 2+ pitting edema. She has subjective signs of CHF. Will do x-ray to help evaluate. Will do basic blood work, BMP. Low concern for cellulitis, does appear to be more likely chronic venous skin changes. Do have concern for CHF/fluid overload. She does have slight crackles at the bases. -Chest Xray independently interpreted by me showing no pneumothorax, focal opacity, or pleural effusions. -Basic blood work reveals hypokalemia to 3.1. Otherwise BNP is elevated at 293, troponin 14 -Discussed options for admission versus discharge. Family is concerned that she has had longstanding symptoms that are not improving despite outpatient medication management. They request inpatient admission. -Patient admitted to the hospital for further fluid overload and Dr. Nolasco was consulted for admission -Family request evaluation for DVT at this time, will order bilateral lower extremity ultrasounds Differential diagnosis: Fluid overload, CHF, DVT ER treatment provided: See below Independent History obtained from: 2 family caretakers Diagnostics interpreted by me: ECG: None Cardiac Monitoring: An order was placed for continuous cardiac monitoring. The monitor shows a rate of 76 with sinus rhythm. Laboratory studies: As stated above and show below. Imaging studies: See below. Past Med/Surg History Problem List (Updated 05/06/24 @ 01:00 by Raleigh Fried MD) Bilateral edema of lower extremity (Acute) Acute respiratory failure with hypoxia Pleural effusion (Acute) CHF (congestive heart failure) (Acute) ICD (implantable cardioverter-defibrillator) in place Cardiac arrest with ventricular fibrillation Non-occlusive coronary artery disease Diastolic heart failure Chronic a-fib Chest pain Medical History (Updated 05/06/24 @ 01:00 by Raleigh Fried MD) Cardiac arrest Takotsubo syndrome ICD (implantable cardioverter-defibrillator) in place Pericarditis GERD (gastroesophageal reflux disease) Diabetes mellitus, type 2 Congestive heart failure Hyperlipidemia Atrial fibrillation Arrhythmia Social History Smoking Status: Never smoker Hx Alcohol Use: No Hx Substance Use: No Preferred Language: Dutch Communication Ability: Effective Senior Actuarial Analyst Required: No Beliefs That Will Affect Care: None Current Living Situation: Alone Feels Safe at Home: Yes Assistive Devices: Cane and Walker Allergies Allergies Allergy/AdvReac Type Severity Reaction Status Date / Time No Known Allergies Allergy Verified 07/31/23 23:42 Home Meds Home Medications Medication Instructions Recorded Confirmed apixaban 5 mg tablet (Eliquis) 5 mg BID 03/18/20 07/31/23 atorvastatin 40 mg tablet (Lipitor) 40 mg PO HS 03/18/20 07/31/23 glipizide 2.5 mg tablet, extended 2.5 mg PO BID 03/18/20 07/31/23 release 24 hr nitroglycerin 0.4 mg sublingual 0.4 mg sublingual DIRECTED PRN 03/18/20 07/31/23 tablet (Nitrostat) Chest Pain torsemide 20 mg tablet 40 mg PO DAILY 03/18/20 07/31/23 alendronate 70 mg tablet 70 mg PO WK 07/31/23 07/31/23 empagliflozin 25 mg tablet 25 mg PO DAILY 07/31/23 07/31/23 (Jardiance) omeprazole 20 mg capsule,delayed 20 mg PO DAILY 07/31/23 07/31/23 release pregabalin 150 mg capsule 150 mg PO BID 07/31/23 07/31/23 colchicine 0.6 mg tablet 0.6 mg PO QAM 05/06/24 05/06/24 pregabalin 150 mg capsule 150 mg PO AMHS 05/06/24 05/06/24 Previous Rx's Medication Instructions Recorded cefdinir 300 mg capsule 300 mg PO BID #8 caps 08/06/23 lidocaine 5 % topical patch See Rx Instructions topical 08/06/23 .COMPLEX #30 ea metoprolol succinate 25 mg 25 mg PO DAILY #30 tabs 08/06/23 tablet,extended release 24 hr Results & Data (ED) Vital Signs Vital Signs - 24 hr 05/05/24 21:52 05/05/24 22:10 05/05/24 22:42 Temperature 36.4 C L Temperature Source Oral Pulse Rate 95 H 87 Pulse Rate [Apical] Respiratory Rate 16 Respiratory Effort / Characteristics Non-Labored Spontaneous Non-Labored Respiratory Depth Normal Normal Respiratory Pattern Regular Blood Pressure 127/82 Blood Pressure [Left Arm] Blood Pressure Mean 97 Blood Pressure Mean [Left Arm] Blood Pressure Position Sitting Pulse Oximetry 94 Oxygen Delivery Method Room Air Sepsis Recent Fever Within 48 Hours No Sepsis New/Unexplained Change in Mental Status No Sepsis Action Taken by Nursing No Action Required 05/05/24 23:37 Temperature Temperature Source Pulse Rate Pulse Rate [Apical] 76 Respiratory Rate 16 Respiratory Effort / Characteristics Non-Labored Respiratory Depth Normal Respiratory Pattern Blood Pressure Blood Pressure [Left Arm] 145/89 H Blood Pressure Mean Blood Pressure Mean [Left Arm] 107 Blood Pressure Position Pulse Oximetry 98 Oxygen Delivery Method Sepsis Recent Fever Within 48 Hours Sepsis New/Unexplained Change in Mental Status Sepsis Action Taken by Nursing Laboratory Data 05/05/24 22:15 05/05/24 22:15 Lab Results 05/05/24 Range/Units 22:15 WBC 6.59 (4.8-10.8) K/ul RBC 5.95 H (4.20-5.40) M/uL Hgb 14.6 (12.0-16.0) g/dl Hct 46.2 (37.0-47.0) % MCV 77.6 L (80.0-100.0) fL MCH 24.5 L (25.0-34.0) pg MCHC 31.6 L (32.0-36.0) g/dL RDW Std Deviation 55.6 H (36.4-46.3) fL RDW Coeff of Jonathan 20.8 H (11.5-14.5) % Plt Count 202 (130-400) K/uL MPV 11.4 (9.4-12.4) fL Immature Gran % (Auto) 0.3 % Neut % (Auto) 63.7 % Lymph % (Auto) 24.7 % Haralson % (Auto) 9.9 % Eos % (Auto) 1.2 % Baso % (Auto) 0.2 % Neut # (Auto) 4.20 (1.40-6.50) K/uL Lymph # (Auto) 1.63 (1.20-3.40) K/uL Haralson # (Auto) 0.65 H (0.11-0.59) K/uL Eos # (Auto) 0.08 (0.00-0.50) K/uL Baso # (Auto) 0.01 (0.00-0.20) K/uL Immature Gran # (Auto) 0.02 (0.01-0.20) K/uL Polychromasia 1+ Anisocytosis Present Tear Drop Cells 1+ Rouleaux 1+ Sodium 143 (136-145) mmol/L Potassium 3.1 L (3.5-5.1) mmol/L Chloride 100 (98-107) mmol/L Carbon Dioxide 32 (21-32) mmol/L Anion Gap 11 (3-11) BUN 18 (6-23) mg/dl Creatinine 0.94 (0.6-1.2) mg/dl Est Cr Clr Drug Dosing 36.4 ml/min Est GFR ( Amer) 63.2 ml/min Est GFR (Non-Af Amer) 54.5 ml/min BUN/Creatinine Ratio 19.1 (10-20) Glucose 204 H (70-99(Fasting)) mg/dl Calcium 9.8 (8.6-10.3) mg/dl Troponin I High Sens 14.0 (0-14) pg/ml B-Natriuretic Peptide 293 H (0-100) pg/ml Discharge Plan Visit Data Chief Complaint: Back Injury/Pain Stated Complaint: BACK PAIN, BOTH LEGS SWELLING/PAIN ED Provider: Raleigh Fried Discharge Problem: CHF (congestive heart failure), Bilateral edema of lower extremity Forms Stand Alone Forms: My [facility] Prescriptions Prescriptions: No Action atorvastatin [Lipitor] 40 mg Tablet 40 mg PO HS torsemide 20 mg Tablet 40 mg PO DAILY glipizide 2.5 mg Tablet Extended Release 24hr 2.5 mg PO BID nitroglycerin [Nitrostat] 0.4 mg Tablet, Sublingual 0.4 mg sublingual DIRECTED PRN (Reason: Chest Pain) Rx Instructions: 1 tab sl every 5 mins as needed for cp Eliquis 5 mg Tablet 5 mg BID alendronate 70 mg tablet 70 mg PO WK Rx Instructions: SATURDAYS omeprazole 20 mg capsule,delayed release(DR/EC) 20 mg PO DAILY pregabalin 150 mg capsule 150 mg PO BID Jardiance 25 mg tablet 25 mg PO DAILY lidocaine 5 % adhesive patch,medicated See Rx Instructions .ROUTE .COMPLEX Qty: 30 0RF Rx Instructions: leave on most painful area for up to 12 hrs metoprolol succinate 25 mg tablet extended release 24 hr 25 mg PO DAILY Qty: 30 0RF cefdinir 300 mg capsule 300 mg PO BID Qty: 8 0RF colchicine 0.6 mg tablet 0.6 mg PO QAM pregabalin 150 mg capsule 150 mg PO [facility] Referrals Referrals: Isrrael Bolivar, [Primary Care Provider] -
--- NOTE | 2024-05-06 01:56 | History & Physical Report ---
Date of Service May 06, 2024 Assessment & Plan (1) CHF (congestive heart failure): Plan: 89-year-old female with past medical history significant for type 2 diabetes, hyperlipidemia, asthma, history of pneumonia, history of V-fib cardiac arrest in November 2010 s/p single-chamber ICD s/p cardiac cath and no significant CAD seen, history of A-fib, history of chronic diastolic CHF, history of critical limb ischemia of left lower extremity with autologous bypass graft , history of hypertension, history of Takotsubo cardiomyopathy, history of acute viral pericarditis history of bilateral cellulitis of lower leg, history of acute thoracic back pain who lives alone, ambulates with Walker was brought in by grandniece because of ongoing lower extremity edema and numbness. Patient states she was treated for lower extremity cellulitis with couple of doses of antibiotics total of 3 weeks and completed the course. Her lower extremity edema is improved. But lately she developed some discoloration of feet and also bilateral feet are numb since last 1 week. Last couple of days noticed some numbness in the hands. And today she was having lot of nausea and vomiting which prompted the family to bring her to the hospital. Patient is alert and oriented. Denies any headache. Currently denies any dizziness. No blurred vision ,no earache. No runny nose. No sore throat. Occasional cough. No difficulty swallowing. Appetite is okay. Denies any chest pain. States she is getting on and off shortness of breath. No abdominal pain. Normal bowel and bladder movements. Hemodynamics are okay.Grandniece says about a month ago patient had ICD firing but that stopped now and after that she developed lower extreme edema Possible acute on chronic diastolic CHF Moderate tricuspid regurgitation At home supposed to be on torsemide 40 twice daily but she is taking only 20 mg twice daily Will continue with IV Lasix 40 mg twice daily Daily weights I's and O's Telemetry Will follow echo Check procalcitonin levels ICD interrogation Consult cardiology in a.m. Nausea/vomiting currently doing ok if recurs will check ct abd/pelvis close monitor. V-fib cardiac arrest in November 2010 Status post ICD History of Stress-induced cardiomyopathy Nonobstructive CAD Cardiac cath no significant coronary disease. ST elevated [place] in October 2002 and cardiac cath without culprit lesion On aspirin statin and Eliquis and metoprolol succinate and Jardiance and torsemide History of permanent atrial fibrillation On Eliquis and metoprolol succinate History of pericardial effusion Status post pericardiocentesis Status post thoracocentesis History of PVD S/p left proximal embolectomy in December 2022 Will follow venous and arterial Dopplers History of lymphedema diuretics will follow doppler recently treated for cellulitis, says took three weeks of antibiotics will follow procalcitonin levels. Hyperlipidemia On statin Hypertension on metoprolol succinate and diuretic Will monitor Status post fall in December 2023 with right hip fracture with repair Pregabalin dose reduced to avoid somnolence Hypokalemia Will replace Diabetes On Jardiance Sliding scale Will monitor Follow HbA1c levels DVT prophylaxis On Eliquis Disposition Telemetry Full code. History of Present Illness Chief Complaint: Lower extremity edema Primary Care Provider: Isrrael Bolivar DO 89-year-old female with past medical history significant for type 2 diabetes, hyperlipidemia, asthma, history of pneumonia, history of V-fib cardiac arrest in November 2010 s/p single-chamber ICD s/p cardiac cath and no significant CAD seen, history of A-fib, history of chronic diastolic CHF, history of critical limb ischemia of left lower extremity with autologous bypass graft , history of hypertension, history of Takotsubo cardiomyopathy, history of acute viral pericarditis history of bilateral cellulitis of lower leg, history of acute thoracic back pain who lives alone, ambulates with Walker was brought in by grandniece because of ongoing lower extremity edema and numbness. Patient states she was treated for lower extremity cellulitis with couple of doses of antibiotics total of 3 weeks and completed the course. Her lower extremity edema is improved. But lately she developed some discoloration of feet and also bilateral feet are numb since last 1 week. Last couple of days noticed some numbness in the hands. And today she was having lot of nausea and vomiting which prompted the family to bring her to the hospital. Patient is alert and oriented. Denies any headache. Currently denies any dizziness. No blurred vision ,no earache. No runny nose. No sore throat. Occasional cough. No difficulty swallowing. Appetite is okay. Denies any chest pain. States she is getting on and off shortness of breath. No abdominal pain. Normal bowel and bladder movements. Hemodynamics are okay.Grandniece says about a month ago patient had ICD firing but that stopped now and after that she developed lower extreme edema Past medical history. As mentioned above Past surgical history. Cardiac cath. ICD plantation. Pericardiocentesis, cataracts, femoral-popliteal bypass left side , thrombectomy on the left side. Social history. . Lives alone. No smoking. No alcohol. No drug use. Family history. Brother had cancer. Sister had breast and lung cancer. Mother had heart disorder. Father had lung disorder. Allergies Allergy/AdvReac Type Severity Reaction Status Date / Time No Known Allergies Allergy Verified 05/06/24 01:03 Home Medications Medication Instructions Recorded Confirmed Type apixaban 5 mg tablet (Eliquis) 5 mg PO BID 03/18/20 05/06/24 History nitroglycerin 0.4 mg sublingual 0.4 mg sublingual DIRECTED PRN 03/18/20 05/06/24 History tablet (Nitrostat) Chest Pain alendronate 70 mg tablet 70 mg PO WK 07/31/23 05/06/24 History empagliflozin 25 mg tablet 25 mg PO QAM 07/31/23 05/06/24 History (Jardiance) aspirin 81 mg chewable tablet 81 mg PO QAM 05/06/24 05/06/24 History (Aspirin Childrens) atorvastatin 40 mg tablet 40 mg PO QPM 05/06/24 05/06/24 History colchicine 0.6 mg tablet 0.6 mg PO QAM 05/06/24 05/06/24 History docusate sodium 100 mg capsule 100 mg PO BID PRN Constipation 05/06/24 05/06/24 History fluticasone furoate 200 1 ea inhalation QAM 05/06/24 05/06/24 History mcg-vilanterol 25 mcg/dose inhalation powder (Breo Ellipta) ipratropium 0.5 mg-albuterol 3 mg 3 ml inhalation Q6 PRN Shortness 05/06/24 05/06/24 History (2.5 mg base)/3 mL nebulization Of Breath soln metoprolol succinate 25 mg 25 mg PO QAM 05/06/24 05/06/24 History tablet,extended release 24 hr omeprazole 20 mg capsule,delayed 20 mg PO QAM 05/06/24 05/06/24 History release ondansetron 4 mg disintegrating 4 mg PO Q6H PRN Nausea 05/06/24 05/06/24 History tablet polyethylene glycol 3350 17 gram 17 g PO BID PRN Constipation 05/06/24 05/06/24 History oral powder packet (Miralax) pregabalin 150 mg capsule 150 mg PO AMHS 05/06/24 05/06/24 History senna-docusate sodium tablet 1 tab PO QAM 05/06/24 05/06/24 History silver sulfadiazine 1 % topical 1 applic topical BID PRN affected 05/06/24 05/06/24 History cream areas as directed torsemide 20 mg tablet 20 mg PO AMPM 05/06/24 05/06/24 History tramadol 25 mg tablet 25 mg PO Q6H PRN Mild Pain (Scale 05/06/24 05/06/24 History Score 1-4) Past Med/Surg History Problem List (Updated 05/06/24 @ 01:00 by Raleigh Fried MD) Bilateral edema of lower extremity (Acute) Acute respiratory failure with hypoxia Pleural effusion (Acute) CHF (congestive heart failure) (Acute) ICD (implantable cardioverter-defibrillator) in place Cardiac arrest with ventricular fibrillation Non-occlusive coronary artery disease Diastolic heart failure Chronic a-fib Chest pain Medical History (Updated 05/06/24 @ 01:00 by Raleigh Fried MD) Cardiac arrest Takotsubo syndrome ICD (implantable cardioverter-defibrillator) in place Pericarditis GERD (gastroesophageal reflux disease) Diabetes mellitus, type 2 Congestive heart failure Hyperlipidemia Atrial fibrillation Arrhythmia Social History Smoking Status: Never smoker Second Hand Exposure: No; Do You Dip or Chew Tobacco: No; Tobacco Cessation Education Requested by Patient: No Hx Alcohol Use: No Hx Substance Use: No Preferred Language: Czech Communication Ability: Effective Motor Grader Rough Grade Required: No Beliefs That Will Affect Care: None Current Living Situation: Alone Other Information That Helps Us Care for You: No Feels Safe at Home: Yes Safety Concerns: Feels Safe At This Time Assistive Devices: Denture - Upper, Denture - Lower, Glasses and Walker Review of Systems Review of Systems: All systems reviewed & are unremarkable except as noted in HPI & below Physical Exam Physical Exam: General- Not in distress Head- atraumatic Eyes- PERRL. ENT- oropharynx clear Neck- supple, no JVD. Lungs- clear to auscultation mild b/l wheezing, mild bibasilar crackles Heart- regular rhythm; no murmur, no gallop. Abdomen- normal bowel sounds, soft, nontender, no distension Extremities- b/l lower extremity edema with erythema seen. Left foot cold. decreased sensations in b/l feet Neuro- alert, oriented PERRL, EOMI; no facial palsy; no dysarthria; moves extremities. Results & Data Results & Data Vital Signs (Past 12 Hours) Vital Signs Temp Pulse Pulse Resp BP BP Pulse Ox 05/05/24 23:37 76 16 145/89 H 98 05/05/24 22:10 87 05/05/24 21:52 36.4 C L 95 H 16 127/82 94 O2 Del Method 05/05/24 23:37 05/05/24 22:10 05/05/24 21:52 Room Air Diagnostic Findings Laboratory Results WBC 6.59 K/ul (4.8-10.8) 05/05/24 22:15 RBC 5.95 M/uL (4.20-5.40) H 05/05/24 22:15 Hgb 14.6 g/dl (12.0-16.0) 05/05/24 22:15 Hct 46.2 % (37.0-47.0) 05/05/24 22:15 MCV 77.6 fL (80.0-100.0) L 05/05/24 22:15 MCH 24.5 pg (25.0-34.0) L 05/05/24 22:15 MCHC 31.6 g/dL (32.0-36.0) L 05/05/24 22:15 RDW Std Deviation 55.6 fL (36.4-46.3) H 05/05/24 22:15 RDW Coeff of Jonatahn 20.8 % (11.5-14.5) H 05/05/24 22:15 Plt Count 202 K/uL (130-400) 05/05/24 22:15 MPV 11.4 fL (9.4-12.4) 05/05/24 22:15 Immature Gran % (Auto) 0.3 % 05/05/24 22:15 Neut % (Auto) 63.7 % 05/05/24 22:15 Lymph % (Auto) 24.7 % 05/05/24 22:15 Howard % (Auto) 9.9 % 05/05/24 22:15 Eos % (Auto) 1.2 % 05/05/24 22:15 Baso % (Auto) 0.2 % 05/05/24 22:15 Neut # (Auto) 4.20 K/uL (1.40-6.50) 05/05/24 22:15 Lymph # (Auto) 1.63 K/uL (1.20-3.40) 05/05/24 22:15 Howard # (Auto) 0.65 K/uL (0.11-0.59) H 05/05/24 22:15 Eos # (Auto) 0.08 K/uL (0.00-0.50) 05/05/24 22:15 Baso # (Auto) 0.01 K/uL (0.00-0.20) 05/05/24 22:15 Immature Gran # (Auto) 0.02 K/uL (0.01-0.20) 05/05/24 22:15 Polychromasia 1+ 05/05/24 22:15 Anisocytosis Present 05/05/24 22:15 Tear Drop Cells 1+ 05/05/24 22:15 Rouleaux 1+ 05/05/24 22:15 Sodium 143 mmol/L (136-145) 05/05/24 22:15 Potassium 3.1 mmol/L (3.5-5.1) L 05/05/24 22:15 Chloride 100 mmol/L (98-107) 05/05/24 22:15 Carbon Dioxide 32 mmol/L (21-32) 05/05/24 22:15 Anion Gap 11 (3-11) 05/05/24 22:15 BUN 18 mg/dl (6-23) 05/05/24 22:15 Creatinine 0.94 mg/dl (0.6-1.2) 05/05/24 22:15 Est Cr Clr Drug Dosing 36.4 ml/min 05/05/24 22:15 Est GFR ( Amer) 63.2 ml/min 05/05/24 22:15 Est GFR (Non-Af Amer) 54.5 ml/min 05/05/24 22:15 BUN/Creatinine Ratio 19.1 (10-20) 05/05/24 22:15 Glucose 204 mg/dl (70-99(Fasting)) H 05/05/24 22:15 Calcium 9.8 mg/dl (8.6-10.3) 05/05/24 22:15 Troponin I High Sens 14.0 pg/ml (0-14) 05/05/24 22:15 B-Natriuretic Peptide 293 pg/ml (0-100) H 05/05/24 22:15 ECG Additional Comments: ECG.. Atrial fibrillation with PVCs rate of 88. Nonspecific abnormality.No significant change was found. Code Status & VTE Plan VTE Prophylaxis Plan VTE Prophylaxis will be ordered: Yes
[2024-05-06] MEDS ORDERED: SILVER SULFADIAZINE 1% CR 50 GM JAR TOP PRN (03:36)
[2024-05-06] MEDS ORDERED: GLUCOSE 40% GEL 15 GM TUBE PO PRN (03:36)
[2024-05-06] MEDS ORDERED: CARBOHYDRATES FOR HYPOGLYCEMIA PO PRN (03:36)
[2024-05-06] MEDS ORDERED: DEXTROSE 50% 50 ML SYRINGE IV PRN (03:36)
[2024-05-06] MEDS ORDERED: GLUCOSE 10 TAB/TUBE PO PRN (03:36)
[2024-05-06] MEDS ORDERED: ALBUT/IPRATROP 3MG/0.5MG NEB 3 ML VIAL INH PRN (03:36)
[2024-05-06] MEDS ORDERED: NITROGLYCERIN SL 0.4 MG/TAB TAB SL PRN (03:36)
[2024-05-06] MEDS ORDERED: ACETAMINOPHEN 325 MG TAB PO PRN (03:36)
[2024-05-06] MEDS ORDERED: GLUCAGON FOR INJ 1 MG VIAL SQ PRN (03:36)
[2024-05-06] MEDS ORDERED: POLYETHYLENE (MIRALAX) 17 GM PACK PO PRN (03:36)
[2024-05-06] MEDS ORDERED: DOCUSATE SODIUM 100 MG CAP PO PRN (03:36)
--- NOTE | 2024-05-06 03:59 | Ultrasound Report ---
Exam(s): US VENOUS BILATERAL LOWER EXTREMITIES EXAM: US Duplex Bilateral Lower Extremities Veins CLINICAL HISTORY: Reason for exam: Eval for DVT. TECHNIQUE: Real-time duplex ultrasound scan of the bilateral lower extremity veins integrating B-mode two-dimensional vascular structure, Doppler spectral analysis, color flow Doppler imaging and compression. COMPARISON: None FINDINGS: Right deep veins: Unremarkable. No DVT in the right common femoral, femoral, proximal deep femoral or popliteal veins. The veins demonstrate normal color flow, are normally compressible, with normal phasic flow and/or augmentation response. Right superficial veins: Unremarkable. No thrombus in the visualized right great saphenous vein. Left deep veins: Unremarkable. No DVT in the left common femoral, femoral, proximal deep femoral or popliteal veins. The veins demonstrate normal color flow, are normally compressible, with normal phasic flow and/or augmentation response. Limited evaluation of the calf veins. Left superficial veins: Unremarkable. No thrombus in the visualized left great saphenous vein. Soft tissues: Soft tissue edema. No popliteal cyst. Lymph nodes: Nonspecific mildly prominent right inguinal lymph nodes. IMPRESSION: No deep venous thrombosis identified in either lower extremity. Electronically signed by: Nancy Rosa M.D. 05/06/24 03:58 AM
--- NOTE | 2024-05-06 04:23 | Ultrasound Report ---
Exam(s): US ARTERIAL BILATERAL LOWER EXTREMITIES EXAM: US Duplex Bilateral Lower Extremities Arteries CLINICAL HISTORY: Reason for exam: cold feet and numbness, pvd. TECHNIQUE: Real-time duplex ultrasound scan of the bilateral lower extremity arteries integrating B-mode two-dimensional vascular structure, Doppler spectral analysis and color flow Doppler imaging. COMPARISON: None FINDINGS: Right common femoral artery: No acute findings. No occlusion or significant stenosis on color flow and spectral Doppler imaging. Normal waveform. Right superficial femoral artery: No acute findings. No occlusion or significant stenosis on color flow and spectral Doppler imaging. Normal waveform. Right popliteal artery: Elevated flow velocities in the right popliteal artery measuring up to 330.6 cm/s. This is compatible with 50- 75% stenosis. Right calf/foot arteries: Monophasic waveforms. No occlusion or significant stenosis on color flow and spectral Doppler imaging. Left common femoral artery: No acute findings. No occlusion or significant stenosis on color flow and spectral Doppler imaging. Normal waveform. Left deep femoral artery: There appears to be at least 50-75% stenosis in the proximal deep left femoral artery, but flow velocities measure up to 196 cm/s. Left superficial femoral artery: Flow velocities in the proximal left superficial femoral artery measures up to 218 cm/s, compatible with 50- 75% stenosis. Left popliteal artery: No acute findings. No occlusion or significant stenosis on color flow and spectral Doppler imaging. Normal waveform. Left calf/foot arteries: Monophasic waveforms. No occlusion or significant stenosis on color flow and spectral Doppler imaging Soft tissues: Soft tissue edema. Other findings: Irregular heart rhythm noted. IMPRESSION: 1. Elevated flow velocities in the right popliteal artery measuring up to 330.6 cm/s. This is compatible with 50-75% stenosis. 2. There appears to be at least 50-75% stenosis in the proximal deep left femoral artery, but flow velocities measure up to 196 cm/s. 3. Flow velocities in the proximal left superficial femoral artery measures up to 218 cm/s, compatible with 50-75% stenosis. 4. Monophasic waveforms in bilateral calf arteries. Electronically signed by: Nancy Rosa M.D. 05/06/24 04:22 AM
[2024-05-06] MEDS: POTASSIUM CHLORIDE CRTAB 20 MEQ TABCR PO STA (04:54)
[2024-05-06 06:07] LABS: Basophils # (auto) 0.01 K/uL (0.00-0.20); Basophils % (auto) 0.2 %; Eosinophils # (auto) 0.09 K/uL (0.00-0.50); Eosinophils % (auto) 1.6 %; Hematocrit (blood only) 40.5 % (37.0-47.0); Hemoglobin 12.9 g/dl (12.0-16.0); Immature Granulocytes # (auto) 0.01 K/uL (0.01-0.20); Immature Granulocytes % (auto) 0.2 %; Lymphocytes # (auto) 1.89 K/uL (1.20-3.40); Lymphocytes % (auto) 33.8 %; Mean Corpuscular Hemoglobin 24.5 pg (25.0-34.0); Mean Corpuscular Hgb Conc 31.9 g/dL (32.0-36.0); Mean Corpuscular Volume 76.9 fL (80.0-100.0); Mean Platelet Volume 11.3 fL (9.4-12.4); Monocytes # (auto) 0.78 K/uL (0.11-0.59); Monocytes % (auto) 13.9 %; Neutrophils # (auto) 2.82 K/uL (1.40-6.50); Neutrophils % (auto) 50.3 %; Platelet Count 175 K/uL (130-400); RDW Coefficient of Variation 20.1 % (11.5-14.5); RDW Standard Deviation 55.5 fL (36.4-46.3); Red Blood Count 5.27 M/uL (4.20-5.40)
[2024-05-06 06:08] LABS: BUN Creatinine Ratio 22.2 (10-20); Calcium 9.1 mg/dl (8.6-10.3); Creatinine Clr Calc Pharmacy 47.5 ml/min; Est GFR (African American) 87.3 ml/min; Est GFR (Non-African American) 75.3 ml/min; Potassium 3.1 mmol/L (3.5-5.1)
[2024-05-06 06:15] LABS: Troponin I High Sensitivity 15.7 pg/ml (0-14)
[2024-05-06 06:33] LABS: Anisocytosis Present; Polychromasia 1+
[2024-05-06 07:19] LABS: Estimated Average Glucose 206 mg/dl; Hemoglobin A1C 8.8 % (4.5-5.6)
[2024-05-06] MEDS: INSULIN ASPART PER UNIT CHARGE SC SCH (08:01)
[2024-05-06] MEDS: POTASSIUM CHLORIDE CRTAB 20 MEQ TABCR PO SCH (08:01)
[2024-05-06] MEDS: FLUTICASONE/VILANTEROL 200/25MCG 14 PUFFS/INHALER INH SCH (08:02)
[2024-05-06] MEDS: METOPROLOL SUCC 25MG EXT REL TAB PO SCH (08:02)
[2024-05-06] MEDS: PANTOprazole 40 MG TAB PO SCH (08:02)
[2024-05-06] MEDS: EMPAGLIFLOZIN 25 MG TAB PO SCH (08:02)
[2024-05-06] MEDS: APIXABAN 5 MG TABLET PO SCH (08:02)
[2024-05-06] MEDS: COLCHICINE 0.6 MG TAB PO SCH (08:02)
[2024-05-06] MEDS: ASPIRIN 81 MG ECTAB PO SCH (08:02)
[2024-05-06] MEDS: FUROSEMIDE 40 MG/4 ML VIAL IV SCH (08:02)
[2024-05-06] MEDS: PREGABALIN 150 MG CAP PO SCH (08:02)
--- NOTE | 2024-05-06 08:03 | XRay Report ---
XR chest 1V portable HISTORY: Shortness of breath. COMPARISON: Chest 08/05/2023. FINDINGS: The lungs are clear. The heart is mildly enlarged. This remains unchanged. There is left-si ded pacemaker/defibrillator noted tortuous thoracic aorta again noted. No evidence for pulmonary beverly a. No pleural fusions. No pneumothorax. Old right clavicle fracture again noted. IMPRESSION: Stable cardiomegaly. Otherwise, no acute process within the chest. ACT 112: Negative or not required by law. Electronically signed by: Doron Hernandez M.D. 05/06/2024 8:01 AM
--- NOTE | 2024-05-06 08:04 | Communication Note ---
Date of Service: May 06, 2024 Patient seen and examined at bedside. Admitted earlier this morning (see H and P) for details. 89-year-old female with multiple medical problems including left proximal embolectomy December 2022, critical limb ischemia LLE s/p autologous bypass graft, Afib on eliquis, h/o Vfib cardiac arrest 2010 s/p single chamber ICD, chronic diastolic CHF, presented with ongoing LE edema, numbness, redness, N/V and back pain. No more N/V and back pain and now tolerating diet well without issues. Also states LE edema is improved with iv lasix, and numbness is improved as well. Left foot slightly cold compared to right but no evidence of critical limb ischemia. US arterial duplex noted to have 50-75% stenosis as noted below. No DVT in bilateral LE. Bilateral thakur noted to have erythema and warmth which per patient has been intermittent and was treated with antibiotics by PCP and then keflex/doxy from [facility] ER on 04/19 for 7/10 days. Likely stasis dermatitis but will have on empiric ceftriaxone for now to see response. No active purulence or open wound noted currently. Dr Lee was consulted but seems he is away on vacation. Consulted Dr Schaeffer from interventional cardiology for input. Will have her on heparin drip instead of her home eliquis for the time being. Will continue to monitor neurovascular status of LE- if worsens, might need transfer to tertiary center with vascular surgery availability. Continue iv lasix 40 bid, daily weight, I and Os, leg elevation. Echo and cardio eval pending. Hypokalemia has been repleted and started on supplementation while on lasix. US arterial duplex bilateral LE 1. Elevated flow velocities in the right popliteal artery measuring up to 330.6 cm/s. This is compatible with 50-75% stenosis. 2. There appears to be at least 50-75% stenosis in the proximal deep left femoral artery, but flow velocities measure up to 196 cm/s. 3. Flow velocities in the proximal left superficial femoral artery measures up to 218 cm/s, compatible with 50-75% stenosis. 4. Monophasic waveforms in bilateral calf arteries.
--- NOTE | 2024-05-06 08:59 | Cardiology Consultation ---
Date of Consultation May 06, 2024 Assessment & Plan (1) Cellulitis: (2) Acute on chronic diastolic HF (heart failure): Plan Acute on chronic HFpEF -Hx Takotsubo Cardiomyopathy 2010, complicated by VFib arrest s/p ICD 11/2010 (gen change 2019) Moderate TR Hx STEMI 2022 -CATH with nonobstructive CAD Permanent AFIB Hx pericardial effusion -s/p pericardiocentesis 11/02/2022 with thoracentesis PVD s/p LLE embolectomy 12/23/2022 lymphedema HTN HLD -Patient appears euvolemic on examination -Weight is down -Treatment of LE cellulitis per primary team -PVD with claudication per vascular team -Patient can transition to PEWTER CASTER diuretic torsemide 40mg BID -Recommend follow-up in cardiology clinic 1 week after discharge Case discussed with Dr. Layton. I spent a total of 35 minutes on the date of service in preparation, delivery, and documentation of the care provided to this patient, excluding any time spent in the performance of separately billed services. Nel Rajan PA-C Department of Cardiology, [facility] This chart was completed in part utilizing Speech Voice Recognition Software. Grammatical errors, random word insertions, pronoun errors, and incomplete sentences are an occasional consequence of this system due to software limitations, ambient noise, and hardware issues. Any formal questions or concerns about the content, text, or information contained within the body of this dictation should be directly addressed to the provider for clarification. Supervising Physician Co-Signing Physician Notes I have reviewed the advance practitioner's documentation, and I agree with, and take responsibility for the plan of care. I have personally performed a history and physical examination on the patient. I spent a total of 40 minutes on the date of service in preparation, delivery, and documentation of the care provided to this patient, excluding any time spent in the performance of separately billed service 89-year-old female with extensive cardiac history as above presented with worsening pain in her lower extremities. Appears to have cellulitis and peripheral arterial disease. Consider consultation with vascular surgery. Divine ent does not appear to be significantly volume overloaded can continue her home dose of diuretics. Patient can follow-up with cardiology after discharge. History of Present Illness Reason for Consultation: CHF Requesting Physician: Dr. Oshea Attending Physician: Dilan Oshea MD History of Present Illness Lillian Feliciano is an 89 year old female with PMHx HFpEF, hx takotsubo cardiomyopathy in 2010 complicated by VFIB arrest s/p ICD, Moderate TR, CAD with STEMI in 2022 (cath with nonobstructive CAD), permanent AFIB, HTN, HLD, PVD, pericardial effusion s/p pericardiocentesis 2022 that presented to [facility] ED with lower extremity edema and numbness. Patient was evaluated at [facility] ED 04/19 for LLE cellulitis. Given doxycycline and keflex. Completed course of ABX. Noticed discoloration of her feet with numbness x 1 week. Patient prescribed torsemide 40mg BID, but she is only taking 20mg BID. Weight 04/19 60kg, today 60kg Patient continues with pain in her legs with ambulation. Reports LE edema has improved. Breathing is at baseline. Denies chest pain, palpitations Allergies Allergy/AdvReac Type Severity Reaction Status Date / Time No Known Allergies Allergy Verified 05/06/24 01:03 Home Medications Medication Instructions Recorded Confirmed Type apixaban 5 mg tablet (Eliquis) 5 mg PO BID 03/18/20 05/06/24 History nitroglycerin 0.4 mg sublingual 0.4 mg sublingual DIRECTED PRN 03/18/20 05/06/24 History tablet (Nitrostat) Chest Pain alendronate 70 mg tablet 70 mg PO WK 07/31/23 05/06/24 History empagliflozin 25 mg tablet 25 mg PO QAM 07/31/23 05/06/24 History (Jardiance) aspirin 81 mg chewable tablet 81 mg PO QAM 05/06/24 05/06/24 History (Aspirin Childrens) atorvastatin 40 mg tablet 40 mg PO QPM 05/06/24 05/06/24 History colchicine 0.6 mg tablet 0.6 mg PO QAM 05/06/24 05/06/24 History docusate sodium 100 mg capsule 100 mg PO BID PRN Constipation 05/06/24 05/06/24 History fluticasone furoate 200 1 ea inhalation QAM 05/06/24 05/06/24 History mcg-vilanterol 25 mcg/dose inhalation powder (Breo Ellipta) ipratropium 0.5 mg-albuterol 3 mg 3 ml inhalation Q6 PRN Shortness 05/06/24 05/06/24 History (2.5 mg base)/3 mL nebulization Of Breath soln metoprolol succinate 25 mg 25 mg PO QAM 05/06/24 05/06/24 History tablet,extended release 24 hr omeprazole 20 mg capsule,delayed 20 mg PO QAM 05/06/24 05/06/24 History release ondansetron 4 mg disintegrating 4 mg PO Q6H PRN Nausea 05/06/24 05/06/24 History tablet polyethylene glycol 3350 17 gram 17 g PO BID PRN Constipation 05/06/24 05/06/24 History oral powder packet (Miralax) pregabalin 150 mg capsule 150 mg PO AMHS 05/06/24 05/06/24 History senna-docusate sodium tablet 1 tab PO QAM 05/06/24 05/06/24 History silver sulfadiazine 1 % topical 1 applic topical BID PRN affected 05/06/24 05/06/24 History cream areas as directed torsemide 20 mg tablet 20 mg PO AMPM 05/06/24 05/06/24 History tramadol 25 mg tablet 25 mg PO Q6H PRN Mild Pain (Scale 05/06/24 05/06/24 His tory Score 1-4) Patient History Medical History (Updated 05/06/24 @ 12:44 by Nel Rajan PA-C) Cardiac arrest Takotsubo syndrome ICD (implantable cardioverter-defibrillator) in place Pericarditis GERD (gastroesophageal reflux disease) Diabetes mellitus, type 2 Congestive heart failure Hyperlipidemia Atrial fibrillation Arrhythmia Social History Smoking Status: Never smoker Second Hand Exposure: No; Do You Dip or Chew Tobacco: No; Tobacco Cessation Education Requested by Patient: No Hx Alcohol Use: No Hx Substance Use: No Preferred Language: Khmer Communication Ability: Effective 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 Beliefs That Will Affect Care: None Current Living Situation: Alone Other Information That Helps Us Care for You: No Feels Safe at Home: Yes Safety Concerns: Feels Safe At This Time Assistive Devices: Walker Review of Systems Review of Systems: All systems reviewed & are unremarkable except as noted in HPI & below Physical Exam Constitutional: WD/WN, vitals as above Eyes: PERRL, conjunctivae normal, anicteric sclerae Respiratory: normal respiratory effort, lungs clear to auscultation no cough Auscultation: no crackles, no rales and no wheezes Cardiovascular: RRR, no murmur, no edema Heart Sounds: normal S1 and normal S2; no murmur Vessels: no JVD Extremities: no edema Bilateral lower extremities erythematic and warm Skin: no rashes, warm and dry Psychiatric: A+Ox3, euthymic affect Results & Data Vital Signs (Past 12 Hours) Vital Signs Temp Pulse Pulse Resp BP BP Pulse Ox 05/06/24 07:24 36.5 C 82 22 183/83 H 96 05/06/24 03:45 05/06/24 03:38 36.7 C 80 18 138/98 96 05/06/24 00:45 82 05/06/24 00:30 124/102 H 05/06/24 00:30 124/102 H 05/06/24 00:21 76 18 05/06/24 00:12 76 18 05/06/24 00:03 81 21 05/06/24 00:00 141/80 H 05/06/24 00:00 141/80 H 05/06/24 00:00 141/80 H 05/06/24 00:00 141/80 H 05/05/24 23:51 80 24 05/05/24 23:37 76 16 145/89 H 98 05/05/24 23:15 75 05/05/24 23:00 80 20 05/05/24 22:42 81 20 05/05/24 22:27 83 15 05/05/24 22:10 87 05/05/24 22:09 150/101 H 05/05/24 22:09 150/101 H 05/05/24 21:52 36.4 C L 95 H 16 127/82 94 O2 Del Method 05/06/24 07:24 Room Air 05/06/24 03:45 Room Air 05/06/24 03:38 Room Air 05/06/24 00:45 05/06/24 00:30 05/06/24 00:30 05/06/24 00:21 05/06/24 00:12 05/06/24 00:03 05/06/24 00:00 05/06/24 00:00 05/06/24 00:00 05/06/24 00:00 05/05/24 23:51 05/05/24 23:37 05/05/24 23:15 05/05/24 23:00 05/05/24 22:42 05/05/24 22:27 05/05/24 22:10 05/05/24 22:09 05/05/24 22:09 05/05/24 21:52 Room Air Laboratory Results Cardiac Enzymes 05/05/24 05/06/24 Range/Units 22:15 05:28 Troponin I High Sens 14.0 15.7 H (0-14) pg/ml B-Natriuretic Peptide 293 H (0-100) pg/ml Coagulation 05/05/24 Range/Units 22:15 B-Natriuretic Peptide 293 H (0-100) pg/ml CBC 05/05/24 05/06/24 Range/Units 22:15 05:28 WBC 6.59 5.60 (4.8-10.8) K/ul RBC 5.95 H 5.27 (4.20-5.40) M/uL Hgb 14.6 12.9 (12.0-16.0) g/dl Hct 46.2 40.5 (37.0-47.0) % Plt Count 202 175 (130-400) K/uL Neut # (Auto) 4.20 2.82 (1.40-6.50) K/uL Lymph # (Auto) 1.63 1.89 (1.20-3.40) K/uL Webster # (Auto) 0.65 H 0.78 H (0.11-0.59) K/uL Eos # (Auto) 0.08 0.09 (0.00-0.50) K/uL Baso # (Auto) 0.01 0.01 (0.00-0.20) K/uL Comprehensive Metabolic Panel 05/05/24 05/06/24 Range/Units 22:15 05:28 Sodium 143 143 (136-145) mmol/L Potassium 3.1 L 3.1 L (3.5-5.1) mmol/L Chloride 100 103 (98-107) mmol/L Carbon Dioxide 32 33 H (21-32) mmol/L BUN 18 16 (6-23) mg/dl Creatinine 0.94 0.72 (0.6-1.2) mg/dl Glucose 204 H 154 H (70-99(Fasting)) mg/dl Calcium 9.8 9.1 (8.6-10.3) mg/dl Intake and Output 05/05/24 05/06/24 05/06/24 22:59 06:59 14:59 Intake Total Balance Intake: Oral Other: Weight 59.3 kg 60.1 kg Weight Measurement Method Chair Scale Built in [facility] Diagnostic Findings LE arterial duplex 05/06/2024 R popliteal, L deep femoral and L sperficial femoral arteries with 50-75% stenosis. LE venous duplex 05/06/2024 No evidence of DVT in either LE CXR 05/06/2024 Stable cardiomegaly. No acute process (1) Cellulitis Laterality: right Site of cellulitis: extremity Site of cellulitis of ex tremity: lower extremity Qualified Code(s): L03.115 - Cellulitis of right lower limb
[2024-05-06] MEDS: cefTRIAXone SODIUM 2,000 MG/50 ML BAG IV SCH (11:34)
--- NOTE | 2024-05-06 11:58 | Electrocardiogram Report ---
Test Reason : Blood Pressure : */* mmHG Vent. Rate : 88 BPM Atrial Rate : * BPM P-R Int : * ms QRS Dur : 90 ms QT Int : 364 ms P-R-T Axes : * 18 -60 degrees QTcB Int : 440 ms Atrial fibrillation with premature ventricular or aberrantly conducted complexes Diffuse Minor Nonspecific T wave abnormality Abnormal ECG When compared with ECG of 04-Aug-2023 10:29, No significant change was found Confirmed by Adama Dumont ([id number]) on 05/06/2024 11:58:03 AM Referred By: REFERRED SELF Confirmed By: Adama Dumont
[2024-05-06] MEDS: HEPARIN SODIUM/DEXTROSE 25,000 UNITS/500 ML BAG IV SCH (12:20)
[2024-05-06] MEDS: Heparin IV Adult Wt-Based Low-Dose *NO* INITIAL Bolus Protocol IV STA (12:21)
[2024-05-06 12:24] LABS: INR 1.2 (0.9-1.1); Partial Thromboplastin Time 28 Seconds (21-31); Prothrombin Time 12.5 Seconds (9.0-12.0)
--- NOTE | 2024-05-06 17:31 | Vascular Medicine Consultation ---
Date of Consultation May 06, 2024 Assessment & Plan (1) PAD (peripheral artery disease): Borderline 50-74% left proximal SFA/profunda. Right 50-74% right popliteal Post acute left limb ischemia 12/2022 postsurgical embolectomy [facility] 2. Acute on chronic HFpEF 3. Suspected lymphedema/venous insufficiency 4. Permanent A-fib on anticoagulation 5. Nonobstructive CAD Here with bilateral lower extremity/discomfort/numbness. Swelling seems secondary to acute heart failure and has responded to IV diuretics. Suspect may also have some contribution from venous insufficiency and lymphedema. On exam today bilateral lower extremities well-perfused with intact capillary refill. Arterial duplex shows at most moderate SFA/profunda disease on the left with patent infrapopliteal vessels. No evidence of acute arterial process and do not feel presenting symptoms secondary to her chronic arterial disease. Has not had significant claudication and no signs of critical ischemia. Do not feel patient would benefit from revascularization of her moderate arterial disease and further angiogram/int ervention unnecessary at this time. Will obtain MARIA A/TBI to assure adequate distal perfusion Can transition heparin back to Eliquis at this time Continued diuresis, ASCVD risk factor modification with cardiology If toe pressures adequate recommend retrying compression stockings as an outpatient Consider outpatient venous reflux ultrasound to evaluate for venous insufficiency amenable to ablation Will follow-up on vascular studies. Please contact financial questions. History of Present Illness Attending Physician: Dilan Oshea MD History of Present Illness Ms. Feliciano is a very pleasant 89-year-old woman seen today in hospital for lower extremity PAD. History of left lower extremity acute limb ischemia 12/2022 with left HR ANALYST occlusion treated with surgical embolectomy with Dr. Reese at [facility]. Repeat arterial duplex 01/2023 showed widely patent left system with normal MARIA A. Event occurred in the setting of being off chronic anticoagulation with her AF. Follows with [facility] cardiology. Has a history of HFpEF, permanent atrial fibrillation now on Eliquis, nonobstructive CAD, remote VF arrest post ICD, pericardial fusion post pericardiocentesis 12/2022, hypertension, dyslipidemia. She was admitted with weeks of bilateral lower extremity swelling, redness. Had been treated with antibiotics was seen at [facility] ED and DVT study negative. With continued swelling, questionable discoloration and some numbness in her upper and lower extremities presented to [facility]. Has responded to IV diuretics with significant improvement in lower extremity swelling. Patient reports discomfort with lower extremity swelling but no rest pain. No limiting claudication. Lives independently. Able to walk with walker, care for her apartment. Arterial duplex today: Right 50-74% popliteal stenosis (PSV 330), three-vessel distal runoff. Left borderline 50-74% stenosis in left profunda, proximal SFA (PSV 218), three-vessel distal runoff. Venous duplex today: No DVT Allergies Allergy/AdvReac Type Severity Reaction Status Date / Time No Known Allergies Allergy Verified 05/06/24 01:03 Home Medications Medication Instructions Recorded Confirmed Type apixaban 5 mg tablet (Eliquis) 5 mg PO BID 03/18/20 05/06/24 History nitroglycerin 0.4 mg sublingual 0.4 mg sublingual DIRECTED PRN 03/18/20 05/06/24 History tablet (Nitrostat) Chest Pain alendronate 70 mg tablet 70 mg PO WK 07/31/23 05/06/24 History empagliflozin 25 mg tablet 25 mg PO QAM 07/31/23 05/06/24 History (Jardiance) aspirin 81 mg chewable tablet 81 mg PO QAM 05/06/24 05/06/24 History (Aspirin Childrens) atorvastatin 40 mg tablet 40 mg PO QPM 05/06/24 05/06/24 History colchicine 0.6 mg tablet 0.6 mg PO QAM 05/06/24 05/06/24 History docusate sodium 100 mg capsule 100 mg PO BID PRN Constipation 05/06/24 05/06/24 History fluticasone furoate 200 1 ea inhalation QAM 05/06/24 05/06/24 History mcg-vilanterol 25 mcg/dose inhalation powder (Breo Ellipta) ipratropium 0.5 mg-albuterol 3 mg 3 ml inhalation Q6 PRN Shortness 05/06/24 05/06/24 History (2.5 mg base)/3 mL nebulization Of Breath soln metoprolol succinate 25 mg 25 mg PO QAM 05/06/24 05/06/24 History tablet,extended release 24 hr omeprazole 20 mg capsule,delayed 20 mg PO QAM 05/06/24 05/06/24 History release ondansetron 4 mg disintegrating 4 mg PO Q6H PRN Nausea 05/06/24 05/06/24 History tablet polyethylene glycol 3350 17 gram 17 g PO BID PRN Constipation 05/06/24 05/06/24 History oral powder packet (Miralax) pregabalin 150 mg capsule 150 mg PO AMHS 05/06/24 05/06/24 History senna-docusate sodium tablet 1 tab PO QAM 05/06/24 05/06/24 History silver sulfadiazine 1 % topical 1 applic topical BID PRN affected 05/06/24 05/06/24 History cream areas as directed torsemide 20 mg tablet 20 mg PO AMPM 05/06/24 05/06/24 History tramadol 25 mg tablet 25 mg PO Q6H PRN Mild Pain (Scale 05/06/24 05/06/24 History Score 1-4) Patient History Medical History (Updated 05/06/24 @ 17:42 by Gonzalo Schaeffer MD) Cardiac arrest Takotsubo syndrome ICD (implantable cardioverter-defibrillator) in place Pericarditis GERD (gastroesophageal reflux disease) Diabetes mellitus, type 2 Congestive heart failure Hyperlipidemia Atrial fibrillation Arrhythmia Social History Smoking Status: Never smoker Second Hand Exposure: No; Do You Dip or Chew Tobacco: No; Tobacco Cessation Education Requested by Patient: No Hx Alcohol Use: No Hx Substance Use: No Preferred Language: Divehi Communication Ability: Effective 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 Beliefs That Will Affect Care: None Current Living Situation: Alone Other Information That Helps Us Care for You: No Feels Safe at Home: Yes Safety Concerns: Feels Safe At This Time Assistive Devices: Walker Review of Systems Review of Systems: All systems reviewed & are unremarkable except as noted in HPI & below Physical Exam Physical Exam: General: Comfortable, no acute distress Eyes: Sclerae anicteric Neck: No JVD Lungs: Clear to auscultation bilaterally Cardiac: Irregular irregular, 2 out of 6 holosystolic murmur left lower sternal border Abdomen: Soft, nontender Neuro: Distal sensation intact to light touch Psych: Alert orient x3, normal affect and mood Extremities/Vascular: -- 2+ radial bilaterally -- 2+ femoral bilaterally -- 1+ popliteal bilaterally, right greater than sign left -- 1+ DP/PT pulses on right, diminished DP/PT on left. Normal capillary refill bilaterally -- No lower extremity ulcerations. -- Trace edema -- Erythema over anterior shins bilaterally, healed superficial ulcer with scab over right anterior lateral thakur -- No hyperpigmentation, stasis dermatitis or lipodermatosclerosis Results & Data Vital Signs (Past 12 Hours) Vital Signs Temp Pulse Resp BP Pulse Ox O2 Del Method 05/06/24 15:08 98.2 F 61 22 121/70 95 Room Air 05/06/24 13:17 Room Air 05/06/24 11:22 98.2 F 59 L 22 111/70 94 Room Air 05/06/24 07:24 97.7 F 82 22 183/83 H 96 Room Air PG Care Time/CCT Total # of Minutes Spent Total Time Spent with Patient: Total time spent is greater than 50% in coordination of care (as documented) at patient's floor/unit and/or counseling patient: Coding Level of Care Code 57485 INT INP/OBS CARE 3/75MIN Diagnoses PAD (peripheral artery disease) I73.9
[2024-05-06] MEDS: ATORVASTATIN 40 MG TAB PO SCH (19:40)
[2024-05-06 19:51] LABS: ANTI-Xa, UFH(UnfractionatedHep > 1.50 IU/ml (0.3-0.7)
[2024-05-07 06:44] LABS: Hematocrit (blood only) 41.5 % (37.0-47.0); Hemoglobin 13.1 g/dl (12.0-16.0); Mean Corpuscular Hemoglobin 24.6 pg (25.0-34.0); Mean Corpuscular Hgb Conc 31.6 g/dL (32.0-36.0); Mean Platelet Volume 11.3 fL (9.4-12.4); Platelet Count 183 K/uL (130-400); RDW Coefficient of Variation 20.6 % (11.5-14.5); RDW Standard Deviation 56.1 fL (36.4-46.3); Red Blood Count 5.32 M/uL (4.20-5.40); White Blood Count 5.93 K/ul (4.8-10.8)
[2024-05-07 07:04] LABS: BUN Creatinine Ratio 18.1 (10-20); Calcium 9.5 mg/dl (8.6-10.3); Creatinine Clr Calc Pharmacy 36.4 ml/min; Est GFR (African American) 63.2 ml/min; Est GFR (Non-African American) 54.5 ml/min; Magnesium 2.2 mg/dl (1.7-2.4); Phosphorus 3.5 mg/dl (2.5-4.9); Potassium 4.2 mmol/L (3.5-5.1)
--- NOTE | 2024-05-07 11:08 | Ultrasound Report ---
US ankle/brachial index ltd CLINICAL HISTORY: pad TECHNIQUE: Ankle brachial indices were calculated. COMPARISON: None available at the time of this dictation. FINDINGS: ANKLE/BRACHIAL INDEX (MARIA A): Brachial: Right: 122 mmHg. Left: 121 mmHg. Ankle (dorsalis pedis): Right: 1 9 mmHg. Left: 101 mmHg. Ankle (posterior tibial): Right: 1 8 mmHg. Left: 93 mmHg. Ankle/brachial index: Right: 0.89, Left: 0.83. Reference ranges: Normal Ankle/Brachial Index (MARIA A) 1.0-1.4; 0.91-0.99 borderline; < or = 0.9 abnormal (0.7-0.89 mild, 0.51-0.69 moderate, < or = 0.5 severe peripheral arterial disease). Normal Toe/Brachial Index (TBI) > or = 0.6; < 0.6 abnormal (0.34-0.59 mild, 0.12-0.34 moderate, < or = 0.11 severe peripheral arterial disease). IMPRESSION: Findings compatible with mild bilateral peripheral artery disease. ACT 112: Negative or not required by law. Electronically signed by: Jerry Salinas M.D. 05/07/2024 11:07 AM
--- NOTE | 2024-05-07 12:23 | Hospitalist Progress Note ---
Date of Service May 07, 2024 Assessment & Plan (1) CHF (congestive heart failure): Plan: 89-year-old female with past medical history significant for type 2 diabetes, hyperlipidemia, asthma, history of pneumonia, history of V-fib cardiac arrest in November 2010 s/p single-chamber ICD s/p cardiac cath and no significant CAD seen, history of A-fib, history of chronic diastolic CHF, history of critical limb ischemia of left lower extremity with autologous bypass graft , history of hypertension, history of Takotsubo cardiomyopathy, history of acute viral pericarditis history of bilateral cellulitis of lower leg, history of acute thoracic back pain who lives alone, ambulates with Walker was brought in by grandniece because of ongoing lower extremity edema and numbness. Patient states she was treated for lower extremity cellulitis with couple of doses of antibiotics total of 3 weeks and completed the course. Her lower extremity edema is improved. But lately she developed some discoloration of feet and also bilateral feet are numb since last 1 week. Last couple of days noticed some numbness in the hands. And today she was having lot of nausea and vomiting which prompted the family to bring her to the hospital. Patient is alert and oriented. Denies any headache. Currently denies any dizziness. No blurred vision ,no earache. No runny nose. No sore throat. Occasional cough. No difficulty swallowing. Appetite is okay. Denies any chest pain. States she is getting on and off shortness of breath. No abdominal pain. Normal bowel and bladder movements. Hemodynamics are okay.Grandniece says about a month ago patient had ICD firing but that stopped now and after that she developed lower extreme edema Acute on chronic diastolic CHF. Patient has responded to diuretics and seems euvolemic at this point per cardiology Moderate tricuspid regurgitation At home supposed to be on torsemide 40 twice daily but she is taking only 20 mg twice daily, Will continue with IV Lasix 40 mg twice daily, transition to torsemide 40 mg twice da Daily weights I's and O's Telemetry Echo reviewed. EF 55-60% Procalcitonin level WNL ICD interrogation per cardiology. No evidence of ICD firing Appreciate cardiology consult Nausea/vomiting No further emesis If recurs will check ct abd/pelvis V-fib cardiac arrest in November 2010 Status post ICD History of Stress-induced cardiomyopathy Nonobstructive CAD Cardiac cath with no significant coronary disease. ST elevated MS in October 2002 and cardiac cath without culprit lesion On aspirin statin and Eliquis and metoprolol succinate and Jardiance and torsemide History of permanent atrial fibrillation On Eliquis and metoprolol succinate rate controlled at present History of pericardial effusion Status post pericardiocentesis Status post thoracocentesis History of PVD S/p left proximal embolectomy in December 2022 Venous and arterial Dopplers ordered. No DVT BI:IMPRESSION: Findings compatible with mild bilateral peripheral artery disease. Vascular surgery consult appreciated. No plans for intervention History of lymphedema Continue diuretics recently treated for cellulitis, says took three weeks of antibiotics Procalcitonin levels are normal. I really am not seeing cellulitis on my evaluation. Will de-escalate antibiotics Hyperlipidemia On statin Hypertension on metoprolol succinate and diuretic Will monitor Status post fall in December 2023 with right hip fracture with repair Pregabalin dose reduced to avoid somnolence Hypokalemia 3.1-->4.2 today Diabetes Continue Jardiance and Sliding scale Will monitor Follow HbA1c levels DVT prophylaxis On Eliquis Disposition Telemetry Full code. Total 52 minutes was spent in review, documentation and care coordination of this patient Admission and Anticipated Discharge Date Admission Date: May 06, 2024 Subjective Chart and data reviewed. Pt seen at bedside. She feels better. She is less SOB Patient has completed 3 antibiotics as an outpatient Meds reviewed below. Back on Apixaban. Cardiology and Vascular consults appreciated. Current Inpatient Medications Acetaminophen (Acetaminophen 325 Mg Tab) 650 mg PO Q4H PRN PRN Reason: Pain or Fever Stop: 06/05/24 03:35 Albuterol (Albut/Ipratrop 3mg/0.5mg Neb 3 Ml Vial) 3 ml INH Q6H PRN; Protocol PRN Reason: Shortness Of Breath Stop: 06/05/24 03:35 Apixaban (Apixaban 5 Mg Tablet) 5 mg PO BID [facility] Stop: 06/05/24 08:59 Last Admin: 05/07/24 08:45 Dose: 5 mg Aspirin (Aspirin 81 Mg Ectab) 81 mg PO QAM [facility] Stop: 06/05/24 08:59 Last Admin: 05/07/24 08:45 Dose: 81 mg Atorvastatin Calcium (Atorvastatin 40 Mg Tab) 40 mg PO QPM [facility] Stop: 06/05/24 20:59 Last Admin: 05/06/24 19:40 Dose: 40 mg Colchicine (Colchicine 0.6 Mg Tab) 0.6 mg PO QAM [facility] Stop: 06/05/24 08:59 Last Admin: 05/07/24 08:45 Dose: 0.6 mg Dextrose (Dextrose 50% 50 Ml Syringe) 25 - 50 ml IV UD PRN; Protocol PRN Reason: Hypoglycemia Protocol Stop: 06/05/24 03:35 Docusate Sodium (Docusate Sodium 100 Mg Cap) 100 mg PO BID PRN PRN Reason: Constipation Stop: 06/05/24 03:35 Empagliflozin (Empagliflozin 25 Mg Tab) 25 mg PO QAM [facility] Stop: 06/05/24 08:59 Last Admin: 05/07/24 08:45 Dose: 25 mg Fluticasone/Vilanterol (Fluticasone/Vilanterol 200/25mcg 14 Puffs/Inhaler) 1 puffs [facility] Stop: 06/05/24 08:59 Last Admin: 05/07/24 08:45 Dose: 1 puffs Furosemide (Furosemide 40 Mg/4 Ml Vial) 40 mg IV BID17 [facility] Stop: 06/05/24 08:59 Last Admin: 05/07/24 08:45 Dose: 40 mg Glucagon (Glucagon For Inj 1 Mg Vial) 1 mg SQ UD PRN; Protocol PRN Reason: Hypoglycemia Protocol Stop: 06/05/24 03:35 Glucose (Glucose 40% Gel 15 Gm Tube) 15 - 30 gm PO UD PRN; Protocol PRN Reason: Hypoglycemia Protocol Stop: 06/05/24 03:35 Glucose (Glucose 10 Tab/Tube) 4 - 8 tab PO UD PRN; Protocol PRN Reason: Hypoglycemia Treatment Stop: 06/05/24 03:35 Ceftriaxone Sodium (Rocephin) 2,000 mg in 50 mls @ 100 mls/hr IV Q24H [facility] Stop: 05/13/24 10:29 Last Infusion: 05/07/24 09:22 Dose: Infused Insulin Aspart (Insulin Aspart Per Unit Charge) 0 units SC ACHS [facility] Stop: 06/05/24 07:29 Last Admin: 05/07/24 08:45 Dose: 1 units Metoprolol Succinate (Metoprolol Succ 25mg Ext Rel Tab) [facility] [place] Stop: 06/05/24 08:59 Last Admin: 08/19/24 08:45 Dose: 25 mg Miscellaneous (Carbohydrates For Hypoglycemia ) 15 - 30 gm PO UD PRN PRN Reason: Hypoglycemia Protocol Stop: 06/05/24 03:35 Nitroglycerin (Nitroglycerin Sl 0.4 Mg/Tab Tab) 0.4 mg SL Q5M PRN PRN Reason: Chest Pain Stop: 06/05/24 03:35 Pantoprazole Sodium (Pantoprazole 40 Mg Tab) 40 mg PO QAM [facility] Stop: 06/05/24 08:59 Last Admin: 05/07/24 08:45 Dose: 40 mg Polyethylene Glycol (Polyethylene (Miralax) 17 Gm Pack) 17 gm PO DAILY PRN PRN Reason: Constipation Stop: 06/05/24 03:35 Potassium Chloride (Potassium Chloride Crtab 20 Meq Tabcr) 40 meq PO BID [facility] Stop: 06/05/24 07:59 Last Admin: 05/07/24 08:45 Dose: 40 meq Pregabalin (Pregabalin 150 Mg Cap) 150 mg PO [facility]HS [facility] Stop: 06/05/24 08:59 Last Admin: 05/07/24 08:46 Dose: 150 mg Silver Sulfadiazine (Silver Sulfadiazine 1% Cr 50 Gm Jar) 1 appln TOP BID PRN PRN Reason: affected areas as directed Stop: 06/05/24 03:35 Review of Systems Review of Systems: Constitutional- no fever; Eyes- no acute visual changes ENT- no sinus drainage; no pharyngitis Pulmonary- no cough, no wheezing, + shortness of breath Cardiac- no chest pain, no palpitations, no orthopnea, no dependent edema GI- no nausea, no vomiting, no diarrhea, no melena, no hematochezia - no dysuria, no hematuria Musculoskeletal- no arthralgias, no myalgias Derm- no rashes Hematologic- no unusual bruising, no unusual bleeding Lymphatics- no adenopathy Neuro- no headaches, no focal neurologic symptoms Psych- no anxiety, no depression Physical Exam Physical Exam: General- adult, elderly female seen at bedside. chronic ill appearance Head- atraumatic Eyes- PERRL, EOMI, anicteric ENT- oropharynx clear Neck- supple, no JVD, no adenopathy, no thyromegaly; carotids +2/2, no bruits appreciated Lungs- clear to auscultation and percussion Heart-irregular rhythm with a controlled rate; no rub appreciated Abdomen- normal bowel sounds, soft, nontender, no masses or hepatosplenomegaly Extremities- Trace pretibial edema, no calf tenderness; chronic venous stasis changes noted. Really do not see active cellulitis at present Neuro- alert, oriented x 3; PERRL, EOMI; no facial palsy; no dysarthria; motor 5/5 bilaterally; no cogwheel rigidity; patellar DTRs +2/2; toes downgoing bilaterally; finger to nose intact bilaterally Skin- warm & dry Results & Data Results & Data Vital Signs (Past 12 Hours) Vital Signs Temp Pulse Resp BP Pulse Ox O2 Del Method 05/07/24 11:53 36.2 C L 56 L 14 113/74 96 Room Air 05/07/24 07:45 36.5 C 77 16 163/108 H 94 Room Air 05/07/24 04:25 36.7 C 60 16 142/91 H 94 Room Air Diagnostic Findings Laboratory Results WBC 5.93 K/ul (4.8-10.8) 05/07/24 05:46 RBC 5.32 M/uL (4.20-5.40) 05/07/24 05:46 Hgb 13.1 g/dl (12.0-16.0) 05/07/24 05:46 Hct 41.5 % (37.0-47.0) 05/07/24 05:46 MCV 78.0 fL (80.0-100.0) L 05/07/24 05:46 MCH 24.6 pg (25.0-34.0) L 05/07/24 05:46 MCHC 31.6 g/dL (32.0-36.0) L 05/07/24 05:46 RDW Std Deviation 56.1 fL (36.4-46.3) H 05/07/24 05:46 RDW Coeff of Jonathan 20.6 % (11.5-14.5) H 05/07/24 05:46 Plt Count 183 K/uL (130-400) 05/07/24 05:46 MPV 11.3 fL (9.4-12.4) 05/07/24 05:46 Immature Gran % (Auto) 0.2 % 05/06/24 05:28 Neut % (Auto) 50.3 % 05/06/24 05:28 Lymph % (Auto) 33.8 % 05/06/24 05:28 [place] % (Auto) 13.9 % 05/06/24 05:28 Eos % (Auto) 1.6 % 05/06/24 05:28 Baso % (Auto) 0.2 % 05/06/24 05:28 Neut # (Auto) 2.82 K/uL (1.40-6.50) 05/06/24 05:28 Lymph # (Auto) 1.89 K/uL (1.20-3.40) 05/06/24 05:28 [place] # (Auto) 0.78 K/uL (0.11-0.59) H 05/06/24 05:28 Eos # (Auto) 0.09 K/uL (0.00-0.50) 05/06/24 05:28 Baso # (Auto) 0.01 K/uL (0.00-0.20) 05/06/24 05:28 Immature Gran # (Auto) 0.01 K/uL (0.01-0.20) 05/06/24 05:28 Polychromasia 1+ 05/06/24 05:28 Anisocytosis Present 05/06/24 05:28 Tear Drop Cells 1+ 05/05/24 22:15 Rouleaux 1+ 05/05/24 22:15 PT 12.5 Seconds (9.0-12.0) H 05/06/24 11:44 INR 1.2 (0.9-1.1) H 05/06/24 11:44 APTT 28 Seconds (21-31) 05/06/24 11:44 PTT Ratio 1.0 05/06/24 11:44 Heparin Anti-Xa, Unfract > 1.50 IU/ml (0.3-0.7) H* 05/06/24 19:04 Sodium 142 mmol/L (136-145) 05/07/24 05:46 Potassium 4.2 mmol/L (3.5-5.1) D 05/07/24 05:46 Chloride 104 mmol/L (98-107) 05/07/24 05:46 Carbon Dioxide 33 mmol/L (21-32) H 05/07/24 05:46 Anion Gap 5 (3-11) 05/07/24 05:46 BUN 17 mg/dl (6-23) 05/07/24 05:46 Creatinine 0.94 mg/dl (0.6-1.2) 05/07/24 05:46 Est Cr Clr Drug Dosing 36.4 ml/min 05/07/24 05:46 Est GFR ( Amer) 63.2 ml/min 05/07/24 05:46 Est GFR (Non-Af Amer) 54.5 ml/min 05/07/24 05:46 BUN/Creatinine Ratio 18.1 (10-20) 05/07/24 05:46 Glucose 148 mg/dl (70-99(Fasting)) H 05/07/24 05:46 POC Glucose 168 mg/dl (70-99) H 05/07/24 11:19 Estimat Average Glucose 206 mg/dl 05/06/24 05:28 Hemoglobin A1c 8.8 % (4.5-5.6) H 05/06/24 05:28 Calcium 9.5 mg/dl (8.6-10.3) 05/07/24 05:46 Phosphorus 3.5 mg/dl (2.5-4.9) 05/07/24 05:46 Magnesium 2.2 mg/dl (1.7-2.4) 05/07/24 05:46 Troponin I High Sens 15.7 pg/ml (0-14) H 05/06/24 05:28 B-Natriuretic Peptide 293 pg/ml (0-100) H 05/05/24 22:15 Procalcitonin < 0.02 ng/ml (0-0.5) 05/06/24 07:22 Impressions Chest X-Ray 05/05/24 22:41 XR chest 1V portable HISTORY: Shortness of breath. COMPARISON: Chest 08/05/2023. FINDINGS: The lungs are clear. The heart is mildly enlarged. This remains unchanged. There is left-sided pacemaker/defibrillator noted tortuous thoracic aorta again noted. No evidence for pulmonary edema. No pleural fusions. No pneumothorax. Old right clavicle fracture again noted. IMPRESSION: Stable cardiomegaly. Otherwise, no acute process within the chest. ACT 112: Negative or not required by law. Electronically signed by: Doron Hernandez M.D. 05/06/2024 8:01 AM Venous Doppler Study 05/06/24 00:10 Exam(s): US VENOUS BILATERAL LOWER EXTREMITIES EXAM: US Duplex Bilateral Lower Extremities Veins CLINICAL HISTORY: Reason for exam: Eval for DVT. TECHNIQUE: Real-time duplex ultrasound scan of the bilateral lower extremity veins integrating B-mode two-dimensional vascular structure, Doppler spectral analysis, color flow Doppler imaging and compression. COMPARISON: None FINDINGS: Right deep veins: Unremarkable. No DVT in the right common femoral, femoral, proximal deep femoral or popliteal veins. The veins demonstrate normal color flow, are normally compressible, with normal phasic flow and/or augmentation response. Right superficial veins: Unremarkable. No thrombus in the visualized right great saphenous vein. Left deep veins: Unremarkable. No DVT in the left common femoral, femoral, proximal deep femoral or popliteal veins. The veins demonstrate normal color flow, are normally compressible, with normal phasic flow and/or augmentation response. Limited evaluation of the calf veins. Left superficial veins: Unremarkable. No thrombus in the visualized left great saphenous vein. Soft tissues: Soft tissue edema. No popliteal cyst. Lymph nodes: Nonspecific mildly prominent right inguinal lymph nodes. IMPRESSION: No deep venous thrombosis identified in either lower extremity. Electronically signed by: Nancy Rosa M.D. 05/06/24 03:58 AM Duplex Scan Lower Extremity Artery 05/06/24 00:51 Exam(s): US ARTERIAL BILATERAL LOWER EXTREMITIES EXAM: US Duplex Bilateral Lower Extremities Arteries CLINICAL HISTORY: Reason for exam: cold feet and numbness, pvd. TECHNIQUE: Real-time duplex ultrasound scan of the bilateral lower extremity arteries integrating B-mode two-dimensional vascular structure, Doppler spectral analysis and color flow Doppler imaging. COMPARISON: None FINDINGS: Right common femoral artery: No acute findings. No occlusion or significant stenosis on color flow and spectral Doppler imaging. Normal waveform. Right superficial femoral artery: No acute findings. No occlusion or significant stenosis on color flow and spectral Doppler imaging. Normal waveform. Right popliteal artery: Elevated flow velocities in the right popliteal artery measuring up to 330.6 cm/s. This is compatible with 50- 75% stenosis. Right calf/foot arteries: Monophasic waveforms. No occlusion or significant stenosis on color flow and spectral Doppler imaging. Left common femoral artery: No acute findings. No occlusion or significant stenosis on color flow and spectral Doppler imaging. Normal waveform. Left deep femoral artery: There appears to be at least 50-75% stenosis in the proximal deep left femoral artery, but flow velocities measure up to 196 cm/s. Left superficial femoral artery: Flow velocities in the proximal left superficial femoral artery measures up to 218 cm/s, compatible with 50- 75% stenosis. Left popliteal artery: No acute findings. No occlusion or significant stenosis on color flow and spectral Doppler imaging. Normal waveform. Left calf/foot arteries: Monophasic waveforms. No occlusion or significant stenosis on color flow and spectral Doppler imaging Soft tissues: Soft tissue edema. Other findings: Irregular heart rhythm noted. IMPRESSION: 1. Elevated flow velocities in the right popliteal artery measuring up to 330.6 cm/s. This is compatible with 50-75% stenosis. 2. There appears to be at least 50-75% stenosis in the proximal deep left femoral artery, but flow velocities measure up to 196 cm/s. 3. Flow velocities in the proximal left superficial femoral artery measures up to 218 cm/s, compatible with 50-75% stenosis. 4. Monophasic waveforms in bilateral calf arteries. Electronically signed by: Nancy Rosa M.D. 05/06/24 04:22 AM Ankle Brachial Index 05/06/24 17:52 ankle/brachial index ltd CLINICAL HISTORY: pad TECHNIQUE: Ankle brachial indices were calculated. COMPARISON: None available at the time of this dictation. FINDINGS: ANKLE/BRACHIAL INDEX (MARIA A): Brachial: Right: 122 mmHg. Left: 121 mmHg. Ankle (dorsalis pedis): Right: 1 9 mmHg. Left: 101 mmHg. Ankle (posterior tibial): Right: 1 8 mmHg. Left: 93 mmHg. Ankle/brachial index: Right: 0.89, Left: 0.83. Reference ranges: Normal Ankle/Brachial Index (MARIA A) 1.0-1.4; 0.91-0.99 borderline; < or = 0.9 abnormal (0.7-0.89 mild, 0.51-0.69 moderate, < or = 0.5 severe peripheral arterial disease). Normal Toe/Brachial Index (TBI) > or = 0.6; < 0.6 abnormal (0.34-0.59 mild, 0.12-0.34 moderate, < or = 0.11 severe peripheral arterial disease). IMPRESSION: Findings compatible with mild bilateral peripheral artery disease. ACT 112: Negative or not required by law. Electronically signed by: Jerry Salinas M.D. 05/07/2024 11:07 AM
[2024-05-08 06:52] LABS: Hematocrit (blood only) 44.9 % (37.0-47.0); Mean Corpuscular Hemoglobin 24.4 pg (25.0-34.0); Mean Corpuscular Hgb Conc 31.2 g/dL (32.0-36.0); Mean Corpuscular Volume 78.4 fL (80.0-100.0); Mean Platelet Volume 11.3 fL (9.4-12.4); Platelet Count 163 K/uL (130-400); RDW Coefficient of Variation 20.8 % (11.5-14.5); RDW Standard Deviation 55.7 fL (36.4-46.3); Red Blood Count 5.73 M/uL (4.20-5.40); White Blood Count 7.17 K/ul (4.8-10.8)
[2024-05-08 07:14] LABS: BUN Creatinine Ratio 22.3 (10-20); Calcium 9.7 mg/dl (8.6-10.3); Creatinine Clr Calc Pharmacy 33.2 ml/min; Est GFR (African American) 56.6 ml/min; Est GFR (Non-African American) 48.8 ml/min; Magnesium 2.2 mg/dl (1.7-2.4); Potassium 4.6 mmol/L (3.5-5.1)
[2024-05-08 08:03] VITALS: O2SAT 94
--- NOTE | 2024-05-08 11:02 | Discharge Summary ---
Discharge Summary Date of Service May 08, 2024 Patient was admitted to the second floor telemetry unit. She was placed on VTE prophylaxis with apixaban. She was given IV diuresis with Lasix. Patient diuresed well. Patient was empirically started on ceftriaxone but after close inspection it appears as though the patient just had severe venous stasis and stasis changes. She had completed 3 bouts of antibiotics in the outpatient setting. Patient was ambulated. Prior to discharge she was back to her baseline ambulatory status. She was tolerating a heart healthy diet. Patient will follow-up with cardiology this Friday 05/11 with lab work done being done before the appointment. Patient was discharged in stable condition. Principal Dx & Hospital Course #1 = Principal Diagnosis (1) CHF (congestive heart failure): 89-year-old female with past medical history significant for type 2 diabetes, hyperlipidemia, asthma, history of pneumonia, history of V-fib cardiac arrest in November 2010 s/p single-chamber ICD s/p cardiac cath and no significant CAD seen, history of A-fib, history of chronic diastolic CHF, history of critical limb ischemia of left lower extremity with autologous bypass graft , history of hypertension, history of Takotsubo cardiomyopathy, history of acute viral pericarditis history of bilateral cellulitis of lower leg, history of acute thoracic back pain who lives alone, ambulates with Walker was brought in by grandniece because of ongoing lower extremity edema and numbness. Patient states she was treated for lower extremity cellulitis with couple of doses of antibiotics total of 3 weeks and completed the course. Her lower extremity edema is improved. But lately she developed some discoloration of feet and also bilateral feet are numb since last 1 week. Last couple of days noticed some numbness in the hands. And today she was having lot of nausea and vomiting which prompted the family to bring her to the hospital. Patient is alert and oriented. Denies any headache. Currently denies any dizziness. No blurred vision ,no earache. No runny nose. No sore throat. Occasional cough. No difficulty swallowing. Appetite is okay. Denies any chest pain. States she is getting on and off shortness of breath. No abdominal pain. Normal bowel and bladder movements. Hemodynamics are okay.Grandniece says about a month ago patient had ICD firing but that stopped now and after that she developed lower extreme edema Acute on chronic diastolic CHF. Patient has responded to diuretics and seems euvolemic at this point per cardiology Moderate tricuspid regurgitation At home supposed to be on torsemide 40 twice daily but she is taking only 20 mg twice daily, Will continue with IV Lasix 40 mg twice daily, transition to torsemide 40 mg twice daily Daily weights I's and O's Telemetry Echo reviewed. EF 55-60% Procalcitonin level WNL ICD interrogation per cardiology. No evidence of ICD firing Appreciate cardiology consult Nausea/vomiting No further emesis If recurs will check ct abd/pelvis V-fib cardiac arrest in November 2010 Status post ICD History of Stress-induced cardiomyopathy Nonobstructive CAD Cardiac cath with no significant coronary disease. ST elevated [place] in October 2002 and cardiac cath without culprit lesion On aspirin statin and Eliquis and metoprolol succinate and Jardiance and torsemide History of permanent atrial fibrillation On Eliquis and metoprolol succinate rate controlled at present History of pericardial effusion Status post pericardiocentesis Status post thoracocentesis History of PVD S/p left proximal embolectomy in December 2022 Venous and arterial Dopplers ordered. No DVT BI:IMPRESSION: Findings compatible with mild bilateral peripheral artery disease. Vascular surgery consult appreciated. No plans for intervention History of lymphedema Continue diuretics recently treated for cellulitis, says took three weeks of antibiotics Procalcitonin levels are normal. I really am not seeing cellulitis on my evaluation. Will de-escalate antibiotics Hyperlipidemia On statin Hypertension on metoprolol succinate and diuretic Will monitor Status post fall in December 2023 with right hip fracture with repair Pregabalin dose reduced to avoid somnolence Hypokalemia 3.1-->4.2 today Diabetes Continue Jardiance and Sliding scale Will monitor Follow HbA1c levels DVT prophylaxis On Eliquis Disposition Telemetry Full code. Notes For Next Care Provider Medication Changes From Visit v Admission HPI Per Admitting Provider 89-year-old female with past medical history significant for type 2 diabetes, hyperlipidemia, asthma, history of pneumonia, history of V-fib cardiac arrest in November 2010 s/p single-chamber ICD s/p cardiac cath and no significant CAD seen, history of A-fib, history of chronic diastolic CHF, history of critical limb ischemia of left lower extremity with autologous bypass graft , history of hypertension, history of Takotsubo cardiomyopathy, history of acute viral pericarditis history of bilateral cellulitis of lower leg, history of acute thoracic back pain who lives alone, ambulates with Walker was brought in by grandniece because of ongoing lower extremity edema and numbness. Patient states she was treated for lower extremity cellulitis with couple of doses of antibiotics total of 3 weeks and completed the course. Her lower extremity edema is improved. But lately she developed some discoloration of feet and also bilateral feet are numb since last 1 week. Last couple of days noticed some numbness in the hands. And today she was having lot of nausea and vomiting which prompted the family to bring her to the hospital. Patient is alert and oriented. Denies any headache. Currently denies any dizziness. No blurred vision ,no earache. No runny nose. No sore throat. Occasional cough. No difficulty swallowing. Appetite is okay. Denies any chest pain. States she is getting on and off shortness of breath. No abdominal pain. Normal bowel and bladder movements. Hemodynamics are okay.Grandniece says about a month ago patient had ICD firing but that stopped now and after that she developed lower extreme edema Past medical history. As mentioned above Past surgical history. Cardiac cath. ICD plantation. Pericardiocentesis, cataracts, femoral-popliteal bypass left side , thrombectomy on the left side. Social history. . Lives alone. No smoking. No alcohol. No drug use. Family history. Brother had cancer. Sister had breast and lung cancer. Mother had heart disorder. Father had lung disorder. Admission Exam Per Admitting Provider General- Not in distress Head- atraumatic Eyes- PERRL. ENT- oropharynx clear Neck- supple, no JVD. Lungs- clear to auscultation mild b/l wheezing, mild bibasilar crackles Heart- regular rhythm; no murmur, no gallop. Abdomen- normal bowel sounds, soft, nontender, no distension Extremities- b/l lower extremity edema with erythema seen. Left foot cold. decreased sensations in b/l feet Neuro- alert, oriented PERRL, EOMI; no facial palsy; no dysarthria; moves extremities. Discharge Exam General- adult, elderly female examined at bedside Head- atraumatic Eyes- PERRL, EOMI, anicteric ENT- oropharynx clear Neck- supple, no JVD, no adenopathy, no thyromegaly; carotids +2/2, no bruits appreciated Lungs- clear to auscultation and percussion Heart- regular rhythm; no gallop, no rub appreciated Abdomen- normal bowel sounds, soft, nontender, no masses or hepatosplenomegaly Extremities-trace pretibial edema, improved over baseline no calf tenderness; Neuro- alert, oriented x 3; PERRL, EOMI; no facial palsy; no dysarthria; no gross focal deficits Skin- warm & dry Updated Medication List Medication Instructions Recorded Confirmed Type apixaban 5 mg tablet (Eliquis) 5 mg PO BID 03/18/20 05/06/24 History nitroglycerin 0.4 mg sublingual 0.4 mg sublingual DIRECTED PRN 03/18/20 05/06/24 History tablet (Nitrostat) Chest Pain alendronate 70 mg tablet 70 mg PO WK 07/31/23 05/06/24 History empagliflozin 25 mg tablet 25 mg PO QAM 07/31/23 05/06/24 History (Jardiance) aspirin 81 mg chewable tablet 81 mg PO QAM 05/06/24 05/06/24 History (Aspirin Childrens) atorvastatin 40 mg tablet 40 mg PO QPM 05/06/24 05/06/24 History colchicine 0.6 mg tablet 0.6 mg PO QAM 05/06/24 05/06/24 History docusate sodium 100 mg capsule 100 mg PO BID PRN Constipation 05/06/24 05/06/24 History fluticasone furoate 200 1 ea inhalation QAM 05/06/24 05/06/24 History mcg-vilanterol 25 mcg/dose inhalation powder (Breo Ellipta) ipratropium 0.5 mg-albuterol 3 mg 3 ml inhalation Q6 PRN Shortness 05/06/24 05/06/24 History (2.5 mg base)/3 mL nebulization Of Breath soln metoprolol succinate 25 mg 25 mg PO QAM 05/06/24 05/06/24 History tablet,extended release 24 hr omeprazole 20 mg capsule,delayed 20 mg PO QAM 05/06/24 05/06/24 History release ondansetron 4 mg disintegrating 4 mg PO Q6H PRN Nausea 05/06/24 05/06/24 History tablet polyethylene glycol 3350 17 gram 17 g PO BID PRN Constipation 05/06/24 05/06/24 History oral powder packet (Miralax) pregabalin 150 mg capsule 150 mg PO AMHS 05/06/24 05/06/24 History senna-docusate sodium tablet 1 tab PO QAM 05/06/24 05/06/24 History silver sulfadiazine 1 % topical 1 applic topical BID PRN affected 05/06/24 05/06/24 History cream areas as directed tramadol 25 mg tablet 25 mg PO Q6H PRN Mild Pain (Scale 05/06/24 05/06/24 History Score 1-4) potassium chloride 20 mEq 40 meq (2 x 20 mEq) PO BID #60 tabs 05/08/24 Rx tablet,extended release(part/cryst) torsemide 20 mg tablet 40 mg (2 x 20 mg) PO BID #120 tabs 05/08/24 Rx Additional Medication Comments Patient encouraged to take torsemide 40 mg twice daily and potassium twice daily Hospital Stay Data Consultations 05/06/24 00:05 ED Decision to Admit Stat 05/06/24 08:00 Consult Cardiology Routine Consult Vascular Surgery Routine Diagnostic Imagining Performed 05/06/24 00:10 US venous doppler LE Urgent 05/06/24 00:51 US arterial duplex LE Urgent 05/06/24 17:52 US ankle brachial index [US ankle/brachial index ltd] Routine Laboratory Results WBC 7.17 K/ul (4.8-10.8) 05/08/24 06:06 RBC 5.73 M/uL (4.20-5.40) H 05/08/24 06:06 Hgb 14.0 g/dl (12.0-16.0) 05/08/24 06:06 Hct 44.9 % (37.0-47.0) 05/08/24 06:06 MCV 78.4 fL (80.0-100.0) L 05/08/24 06:06 MCH 24.4 pg (25.0-34.0) L 05/08/24 06:06 MCHC 31.2 g/dL (32.0-36.0) L 05/08/24 06:06 RDW Std Deviation 55.7 fL (36.4-46.3) H 05/08/24 06:06 RDW Coeff of Jonathan 20.8 % (11.5-14.5) H 05/08/24 06:06 Plt Count 163 K/uL (130-400) 05/08/24 06:06 MPV 11.3 fL (9.4-12.4) 05/08/24 06:06 Immature Gran % (Auto) 0.2 % 05/06/24 05:28 Neut % (Auto) 50.3 % 05/06/24 05:28 Lymph % (Auto) 33.8 % 05/06/24 05:28 [place] % (Auto) 13.9 % 05/06/24 05:28 Eos % (Auto) 1.6 % 05/06/24 05:28 Baso % (Auto) 0.2 % 05/06/24 05:28 Neut # (Auto) 2.82 K/uL (1.40-6.50) 05/06/24 05:28 Lymph # (Auto) 1.89 K/uL (1.20-3.40) 05/06/24 05:28 [place] # (Auto) 0.78 K/uL (0.11-0.59) H 05/06/24 05:28 Eos # (Auto) 0.09 K/uL (0.00-0.50) 05/06/24 05:28 Baso # (Auto) 0.01 K/uL (0.00-0.20) 05/06/24 05:28 Immature Gran # (Auto) 0.01 K/uL (0.01-0.20) 05/06/24 05:28 Polychromasia 1+ 05/06/24 05:28 Anisocytosis Present 05/06/24 05:28 Tear Drop Cells 1+ 05/05/24 22:15 [place]leaux 1+ 05/05/24 22:15 PT 12.5 Seconds (9.0-12.0) H 05/06/24 11:44 INR 1.2 (0.9-1.1) H 05/06/24 11:44 APTT 28 Seconds (21-31) 05/06/24 11:44 PTT Ratio 1.0 05/06/24 11:44 Heparin Anti-Xa, Unfract > 1.50 IU/ml (0.3-0.7) H* 05/06/24 19:04 Sodium 141 mmol/L (136-145) 05/08/24 06:06 Potassium 4.6 mmol/L (3.5-5.1) 05/08/24 06:06 Chloride 104 mmol/L (98-107) 05/08/24 06:06 Carbon Dioxide 32 mmol/L (21-32) 05/08/24 06:06 Anion Gap 5 (3-11) 05/08/24 06:06 BUN 23 mg/dl (6-23) 05/08/24 06:06 Creatinine 1.03 mg/dl (0.6-1.2) 05/08/24 06:06 Est Cr Clr Drug Dosing 33.2 ml/min 05/08/24 06:06 Est GFR ( Amer) 56.6 ml/min 05/08/24 06:06 Est GFR (Non-Af Amer) 48.8 ml/min 05/08/24 06:06 BUN/Creatinine Ratio 22.3 (10-20) H 05/08/24 06:06 Glucose 154 mg/dl (70-99(Fasting)) H 05/08/24 06:06 POC Glucose 147 mg/dl (70-99) H 05/08/24 07:23 Estimat Average Glucose 206 mg/dl 05/06/24 05:28 Hemoglobin A1c 8.8 % (4.5-5.6) H 05/06/24 05:28 Calcium 9.7 mg/dl (8.6-10.3) 05/08/24 06:06 Phosphorus 3.5 mg/dl (2.5-4.9) 05/07/24 05:46 Magnesium 2.2 mg/dl (1.7-2.4) 05/08/24 06:06 Troponin I High Sens 15.7 pg/ml (0-14) H 05/06/24 05:28 B-Natriuretic Peptide 293 pg/ml (0-100) H 05/05/24 22:15 Procalcitonin < 0.02 ng/ml (0-0.5) 05/06/24 07:22 Impressions Chest X-Ray 05/05/24 22:41 XR chest 1V portable HISTORY: Shortness of breath. COMPARISON: Chest 08/05/2023. FINDINGS: The lungs are clear. The heart is mildly enlarged. This remains unchanged. There is left-sided pacemaker/defibrillator noted tortuous thoracic aorta again noted. No evidence for pulmonary edema. No pleural fusions. No pneumothorax. Old right clavicle fracture again noted. IMPRESSION: Stable cardiomegaly. Otherwise, no acute process within the chest. ACT 112: Negative or not required by law. Electronically signed by: Doron Hernandez M.D. 05/06/2024 8:01 AM Venous Doppler Study 05/06/24 00:10 Exam(s): US VENOUS BILATERAL LOWER EXTREMITIES EXAM: US Duplex Bilateral Lower Extremities Veins CLINICAL HISTORY: Reason for exam: Eval for DVT. TECHNIQUE: Real-time duplex ultrasound scan of the bilateral lower extremity veins integrating B-mode two-dimensional vascular structure, Doppler spectral analysis, color flow Doppler imaging and compression. COMPARISON: None FINDINGS: Right deep veins: Unremarkable. No DVT in the right common femoral, femoral, proximal deep femoral or popliteal veins. The veins demonstrate normal color flow, are normally compressible, with normal phasic flow and/or augmentation response. Right superficial veins: Unremarkable. No thrombus in the visualized right great saphenous vein. Left deep veins: Unremarkable. No DVT in the left common femoral, femoral, proximal deep femoral or popliteal veins. The veins demonstrate normal color flow, are normally compressible, with normal phasic flow and/or augmentation response. Limited evaluation of the calf veins. Left superficial veins: Unremarkable. No thrombus in the visualized left great saphenous vein. Soft tissues: Soft tissue edema. No popliteal cyst. Lymph nodes: Nonspecific mildly prominent right inguinal lymph nodes. IMPRESSION: No deep venous thrombosis identified in either lower extremity. Electronically signed by: Nancy Rosa M.D. 05/06/24 03:58 AM Duplex Scan Lower Extremity Artery 05/06/24 00:51 Exam(s): US ARTERIAL BILATERAL LOWER EXTREMITIES EXAM: US Duplex Bilateral Lower Extremities Arteries CLINICAL HISTORY: Reason for exam: cold feet and numbness, pvd. TECHNIQUE: Real-time duplex ultrasound scan of the bilateral lower extremity arteries integrating B-mode two-dimensional vascular structure, Doppler spectral analysis and color flow Doppler imaging. COMPARISON: None FINDINGS: Right common femoral artery: No acute findings. No occlusion or significant stenosis on color flow and spectral Doppler imaging. Normal waveform. Right superficial femoral artery: No acute findings. No occlusion or significant stenosis on color flow and spectral Doppler imaging. Normal waveform. Right popliteal artery: Elevated flow velocities in the right popliteal artery measuring up to 330.6 cm/s. This is compatible with 50- 75% stenosis. Right calf/foot arteries: Monophasic waveforms. No occlusion or significant stenosis on color flow and spectral Doppler imaging. Left common femoral artery: No acute findings. No occlusion or significant stenosis on color flow and spectral Doppler imaging. Normal waveform. Left deep femoral artery: There appears to be at least 50-75% stenosis in the proximal deep left femoral artery, but flow velocities measure up to 196 cm/s. Left superficial femoral artery: Flow velocities in the proximal left superficial femoral artery measures up to 218 cm/s, compatible with 50- 75% stenosis. Left popliteal artery: No acute findings. No occlusion or significant stenosis on color flow and spectral Doppler imaging. Normal waveform. Left calf/foot arteries: Monophasic waveforms. No occlusion or significant stenosis on color flow and spectral Doppler imaging Soft tissues: Soft tissue edema. Other findings: Irregular heart rhythm noted. IMPRESSION: 1. Elevated flow velocities in the right popliteal artery measuring up to 330.6 cm/s. This is compatible with 50-75% stenosis. 2. There appears to be at least 50-75% stenosis in the proximal deep left femoral artery, but flow velocities measure up to 196 cm/s. 3. Flow velocities in the proximal left superficial femoral artery measures up to 218 cm/s, compatible with 50-75% stenosis. 4. Monophasic waveforms in bilateral calf arteries. Electronically signed by: Nancy Rosa M.D. 05/06/24 04:22 AM Ankle Brachial Index 05/06/24 17:52 ankle/brachial index ltd CLINICAL HISTORY: pad TECHNIQUE: Ankle brachial indices were calculated. COMPARISON: None available at the time of this dictation. FINDINGS: ANKLE/BRACHIAL INDEX (MARIA A): Brachial: Right: 122 mmHg. Left: 121 mmHg. Ankle (dorsalis pedis): Right: 1 9 mmHg. Left: 101 mmHg. Ankle (posterior tibial): Right: 1 8 mmHg. Left: 93 mmHg. Ankle/brachial index: Right: 0.89, Left: 0.83. Reference ranges: Normal Ankle/Brachial Index (MARIA A) 1.0-1.4; 0.91-0.99 borderline; < or = 0.9 abnormal (0.7-0.89 mild, 0.51-0.69 moderate, < or = 0.5 severe peripheral arterial disease). Normal Toe/Brachial Index (TBI) > or = 0.6; < 0.6 abnormal (0.34-0.59 mild, 0.12-0.34 moderate, < or = 0.11 severe peripheral arterial disease). IMPRESSION: Findings compatible with mild bilateral peripheral artery disease. ACT 112: Negative or not required by law. Electronically signed by: Jerry Salinas M.D. 05/07/2024 11:07 AM Pending Results Patient Have Any Pending Studies at Discharge: No Discharge Instructions Given to Patient (Per Discharging Provider) Check lab work prior to your cardiology appointment this Tuesday Total Time Total Time Spent Total Time Spent (In Minutes): A total of 42 minutes was spent in discharge planning for this patient. Discharge Summary Admission Date / Reason Admission Reason For Visit: ACUTE CHF Consultations Consultations: 05/06/24 00:05 ED Decision to Admit Stat 05/06/24 08:00 Consult Cardiology Routine Consult Vascular Surgery Routine
[2024-05-08 11:11] VITALS: PULSE 61; RESP 24; TEMP 97.9
[2024-05-08 13:31] VITALS: BP 121/70
== END 2024-05-08 13:31 | disposition home or self-care (01) | DRG 291 ==
LOC: ED 21:50 → 2E 05-06 00:59 → SUATTDRO 05-06 00:59 → 2E 05-06 03:45

== ENCOUNTER 2024-09-15 17:13 | Observation (INO) ==
--- OUTSIDE RECORDS SUMMARY | 2024-09-15 17:19 | External Medical Summary | Summary of Care ---
Author Name Unknown Organization [facility] Address [address] [place] [address] Phone [phone] Care Team Providers Care Machining Department Supervisor Name Role Phone Isrrael Bolivar Primary Care Provider [phone] Encounter Details Date Type Department Care Team (Late st Contact Info) Description 07/29/2024 Result Scan Unspecified Department Arti Lipscomb DO [address] [place] [address] <No scans attached> Allergies No known active allergiesdocumented as of this encounter (statuses as of 07/29/2024) Medications NITROGLYCERIN 0.4 MG SL SUBLIndications:Hy popotassemia,Cardi ac [...] 1 Tablet by mouth every evening. Active ipratropium-albute rol (COMBIVENT RESPIMAT) 20-100 MCG/ACT Inhaler Inhale 1 Puff by mouth 4 times a day. 1 Inhaler 8 Active Silver sulfADIAZINE 1 % External Cream Apply topically to affected area daily . Apply to BLE Active Jardiance 25 MG Oral Tablet Take 1 Tablet by mouth in the morning. 2 Active Docusate Sodium 100 MG Oral Capsule (Colace) Take 1 Capsule by mouth 2 times a day as needed for Constipation. 10 Capsule 2 Active Fluticasone Furoate-Vilanterol 200-25 MCG/ACT Inhalation Aerosol Powder Breath Activated Inhale 1 Puff by mouth in the morning. 60 Blister Dosing Unit 2 Active TRUEplus Lancets 33G 2 Active True Metrix Blood Glucose Test In Vitro Strip 2 Active True Metrix Meter w/Device Kit 2 Active Alendronate Sodium 70 MG Oral Tablet (Fosamax) Take 1 Tablet by mouth once a week. 2 Active Apixaban 5 MG Oral Tablet (Eliquis)Indicatio ns:Persistent atrial fibrillation (HCC) TAKE 1 TABLET BY MOUTH 2 times daily 180 Tablet 3 3 Active Triamcinolone Acetonide 0.1 % External Cream (Aristocort) Apply to lower legs twice daily as needed for dry skin 80 g 2 3 Active Aspirin 81 MG Oral Tablet Chewable Take 1 Tablet by mouth in the morning. 3 Active Colchicine 0.6 MG Oral Tablet Take 1 Tablet by mouth in the morning. 3 Active Omeprazole 20 MG Oral Capsule Delayed Release (PriLOSEC) Take 1 Capsule by mouth in the morning. 3 Active Metoprolol Succinate ER 25 MG Oral Tablet Extended Release 24 Hour (Toprol XL) Take 1 Tablet by mouth in the morning. 3 Active Torsemide 20 MG Oral Tablet (Demadex)Indicatio ns:HTN, goal below 140/90,Dyslipidemi a, goal LDL below 70,Permanent atrial fibrillation (HCC),Chronic diastolic congestive heart failure (HCC),ICD (implantable cardioverter-defib rillator), single, in situ Take 2 Tablets by mouth in the morning and 2 Tablets in the evening. 60 Tablet 4 Active Ondansetron 4 MG Oral Tablet Disintegrating (Zofran) Place 1 Tablet on tongue every 6 hours as needed for Nausea. 20 Tablet 4 Active traMADol HCl 25 MG Oral Tablet Take 25 mg by mouth every 6 hours as needed for Pain, Mild. 10 Tablet 4 Active Senna-Docusate Sodium 8.6-50 MG Oral Tablet Take 1 Tablet by mouth in the morning. 30 Tablet 1 4 Active Polyethylene Glycol 3350 17 GM Oral Packet (Miralax) Take 1 Packet by mouth 2 times a day as needed (constipation) . 14 Each 4 Active Pregabalin 100 MG Oral Capsule (Lyrica) Take 1 Capsule by mouth in the morning and 1 Capsule before bedtime. 60 Capsule 1 4 Active Ipratropium-Albute rol 0.5-2.5 (3) MG/3ML Inhalation Solution (Duoneb) Inhale 3 mL via nebulizer in the morning and 3 mL before bedtime. 4 Active Potassium Chloride ER 20 MEQ Oral Tablet Extended Release Take 2 Tablets by mouth in the morning and 2 Tablets before bedtime. Active documented as of this encounter (statuses as of 07/29/2024) Active Problems Problem Noted Date Diagnosed Date Fall at home 12/19/2023 Leg edema 11/10/2023 PAD (peripheral artery disease) 11/10/2023 Elevated transaminase level 11/10/2023 Coronary artery disease invo lving [place] coronary artery [place] heart without angina pectoris 11/10/2023 Abnormal nuclear [...] A1c goal of less than 7.0% 11/24/2010 Overview (01/13/2016): ICD-10 update of inactive term Asthma, mild persistent 11/24/2010 Hyperlipidemia Uncontrolled hypertension Takotsubo cardiomyopathy documented as of this encounter (statuses as of 07/29/2024) Resolved Problems Problem Noted Date Diagnosed Date Resolved Date Closed fracture of right femur 12/19/2023 12/26/2023 Closed fracture of right hip 12/19/2023 12/26/2023 Cardiac/pericardial tamponade 11/02/2022 11/05/2022 Hypoxemia 11/24/2018 11/27/2018 Cardiac arrest 11/24/2010 07/14/2011 Ventricular fibrillation 11/24/2010 Acute non Q wave myocardial infarction 11/24/2010 07/14/2011 HTN, goal below 130/80 11/24/201005/11 Overview: Per HTN Protocol #27. documented as of this encounter (statuses as of 07/29/2024) Immunizations Name Administration Dates Next Due Pneumococcal [...] ages 0-17 years) Not on file 12/19/2023 Comments No Sex and Gender Information Value Date Recorded Sex Assigned at Not on file Legal Sex Female 5:55 AM EST Gender Identity Not on file Sexual Orientation Not on file Occupation Industry Job Start Date Job End Date Not on file Not on file Not on file Not on file documented as of this encounter Functional Status * Are you deaf or do you have serious difficulty hearing? Answer Date of Assessment Author No 12/19/2023 2:02 PM Danielle Reyes RN * Are you blind or do you have serious difficulty seeing, even when wearing glasses? Answer Date of Assessment Author No 12/19/2023 2:02 PM Danielle Reyes RN * Do you have serious difficulty walking or climbing stairs? (5 years old or older) Answer Date of Assessment Author No 12/19/2023 2:02 PM Danielle Reyes RN * Do you have difficulty dressing or bathing? (5 years old or older) Answer Date of Assessment Author No 12/19/2023 2:02 PM Danielle Reyes RN * Because of a physical, mental, or emotional condition, do you have difficulty doing errands alone such as visiting a doctors office or shopping? (15 years old or older) Answer Date of Assessment Author No 12/19/2023 2:02 PM GUILLAUMET Danielle Mayorga RN documented as of this encounter Mental Status * Because of a physical, mental, or emotional condition, do you have serious difficulty concentrating, remembering, or making decisions? (5 years old or older) Answer Entry Date Author No 12/19/2023 2:02 PM Danielle Reyes RN documented in this encounter Plan of Treatment Upcoming Encounters Date Type Department Care Team (Late st Contact Info) Description 08/23/2024 2:00 PM EST Office Visit [facility] [address] [address] Rosy Brewer PA-C [address] [address] 04/04/2025 9:00 AM EDT Cardiac Studies [facility] [address] [address] [facility] [address] [address] Health Maintenance Due Date Last Done Comments Depression Screening 1947 Diabetic Foot Exam 1955 DTap/Tdap Vaccines (1 - Tdap) 01/22/1956 Zoster Vaccines (1 of 2) 1987 Albumin/Creatinine Ratio 12/03/2015 12/02/2014 *SPIROMETRY ONCE FOR ASTHMA-ADULT 11/07/2016 Diabetic Eye Exam 09/07/2023 09/07/2022, , 09/07/2022, Additional history exists HbA1c 05/10/2024 11/10/2023, 10/20, 10/12/2022, Additional history exists COVID-19 Vaccine (2023- season) 2024 Influenza Vaccine (FLU shot) (#1) 2024 DXA [...] this encounter Medical Devices Implanted Type Area As400 Programmer Device Identifier Shelf Expiration Date Model / Serial / Lot Lens 21.0 [facility] [id number] - [id number] Implanted:Qty: 1 on 01/28/2023 by Christian Woo DO at OR [facility] Lens Right: Eye [employer] 10/12/2025 CNA0T0.210 / [id number] / [place] 6.5mm Partially Threaded (20mm) Screws, Non-Sterile 90mm Implanted:Qty: 2 on 12/21/2023 by Sulaiman Morales MD at OR [facility] Screw Right: Hip DENISE : ORTHOPAEDICS N/A [id number] / N/A / N/A Description:From sterile set on field. No LOT #, Expiration date or serial # present. WD# [id number] per CDM Team Denise 6.5mm Partially Threaded (20mm) Screws, Non-Sterile 95mm Implanted:Qty: 1 on 12/21/2023 by Sulaiman Morales MD at OR [facility] Screw Right: Hip DENISE N/A [id number] / N/A / N/A Description:From sterile set on field. No LOT #, Expiration date or serial # present. WD# [id number] per CDM Team Lens 20.5 [place] - [id number] - [id number] Implanted:Qty: 1 on 01/04/2023 by Christian Woo DO at OR [facility] Left: Eye [employer] 07/15/2025 CNA0T0.205 / [id number] / documented as of this encounter Procedures Procedure Name Priority Date/Time Associated Diagnosis Comments CARDIOLOGY SCANNED RESULT 07/29/2024 documented in this encounter Results * CARDIOLOGY SCANNED RESULT (07/29/2024) 07/29/2024 Arti Lipscomb DO OTHER Final R esult documented in this encounter Advance Directives * [...] the patient have Health Care Power of Signing Teacher? Yes, not currently available * Full [...] Discussed due to patient's condition Care Teams Machining Department Supervisor Relationship Specialty Start Date End Date Isrrael Bolivar DO [address] [place] [address] PCP - General Family Medicine 11/24/10 documented as of this encounter
--- OUTSIDE RECORDS SUMMARY | 2024-09-15 17:19 | External Medical Summary | Summary of Care ---
Author Name Unknown Organization [facility] Address [address] [place] [address] Phone [phone] Care Team Providers Care Invas Tech Name Role Phone Isrrael Bolivar Primary Care Provider [phone] Reason for Visit * Reason Comments Outpatient Testing Encounter Details Date Type Department Care Team ([facility] Contact Info) Description 05/11/2024 9:30 AM EDT Laboratory Laboratory, [facility] [address] [place] [id number] [facility], Lab [address] [place] [address] Hypokalemia; Chronic heart failure with preserved ejection fraction (HFpEF) (HCC) Allergies No known active allergiesdocumented as of this encounter (statuses as of 05/11/2024) Medications Medication Sig Dispensed Refills Start Date [...] as of this encounter (statuses as of 05/11/2024) Active Problems Problem Noted Date Diagnosed Date Fall at home 12/19/2023 Leg edema 11/10/2023 PAD (peripheral artery disease) 11/10/2023 Elevated transaminase level 11/10/2023 Coronary artery disease invo lving [place] coronary artery of [place] heart without angina pectoris 11/10/2023 Abnormal nuclear [...] as of this encounter (statuses as of 05/11/2024) Resolved Problems Problem Noted Date Diagnosed Date Resolved Date Closed fracture of right femur 12/19/2023 12/26/2023 Closed fracture of right hip 12/19/2023 12/26/2023 Cardiac/pericardial tamponade 11/02/2022 11/05/2022 Hypoxemia 11/24/2018 11/27/2018 Cardiac arrest 11/24/2010 07/14/2011 Ventricular fibrillation 11/24/2010 Acute non Q wave myocardial infarction 11/24/2010 07/14/2011 HTN, goal below 130/80 11/24/201005/11 Overview: Per HTN Protocol #27. documented as of this encounter (statuses as of 05/11/2024) Immunizations Name Administration Dates Next Due Pneumococcal [...] Care Team (Late st Contact Info) Description 05/11/2024 10:30 AM EDT Office Visit [facility] [address] [address] Rosy Brewer PA-C [address] [address] 04/04/2025 9:00 AM EDT Cardiac Studies [facility] [address] [address] [facility] [address] [address] Pending Results Name Type Priority Associated Diagnoses Date /Time BASIC METABOLIC PANEL Lab Routine Hypokalemia 05/11/2024 9:36 AM EDT Health Maintenance Due Date Last [...] this encounter Medical Devices Implanted Type Area Inclusion Intern Device Identifier Shelf Expiration Date Model / Serial / Lot Lens 21.0 [facility] [id number] - [id number] Implanted:Qty: 1 on 01/28/2023 by Christian Woo DO at OR [facility] Lens Right: Eye [employer] 10/12/2025 CNA0T0.210 / [id number] / [place] 6.5mm Partially Threaded (20mm) Screws, Non-Sterile 90mm Implanted:Qty: 2 on 12/21/2023 by Sulaiman Morales MD at OR [facility] Screw Right: Hip PAUL : ORTHOPAEDICS N/A [id number] / N/A / N/A Description:From sterile set on field. No LOT #, Expiration date or serial # present. WD# [id number] per CDM Team Paul 6.5mm Partially Threaded (20mm) Screws, Non-Sterile 95mm Implanted:Qty: 1 on 12/21/2023 by Sulaiman Morales MD at OR [facility] Screw Right: Hip PAUL N/A [id number] / N/A / N/A Description:From sterile set on field. No LOT #, Expiration date or serial # present. WD# [id number] per CDM Team Lens 20.5 [place] - [id number] - [id number] Implanted:Qty: 1 on 01/04/2023 by Christian Woo DO at OR [facility] Left: Eye [employer] 07/15/2025 CNA0T0.205 / [id number] / documented as of this encounter Visit Diagnoses Diagnosis Hypokalemia Hypopotassemia Chronic heart failure with preserved ejection fraction (HFpEF) ([facility]) documented in this encounter Advance Directives * [...] the patient have Health Care Power of Integrative Medicine Physician? Yes, not currently available * Full Code [...] Discussed due to patient's condition Care Teams Invas Tech Relationship Specialty Start Date End Date Isrrael Bolivar DO [address] [place], [place] [id number] PCP - General Family Medicine 11/24/10 documented as of this encounter
--- OUTSIDE RECORDS SUMMARY | 2024-09-15 17:19 | External Medical Summary | Summary of Care ---
Author Name Unknown Organization [facility] Address [address] [place] [address] Phone [phone] Care Team Providers Care Bench Tool Maker Name Role Phone BolivraJulio fordn Robinson Primary Care Provider [phone] Reason for Visit * Reason Comments Follow Up Encounter Details Date Type Department Care Team ([facility] Contact Info) Description 08/23/2024 2:00 PM EST Office Visit Cardiology, [place] [address] [facility] [place], [place] [id number] Rosy Brewer PA-C [address] [facility] [address] Chronic heart failure with preserved ejection fraction (HCC)*; Chronic coronary artery disease; Permanent atrial fibrillation (HCC); ICD (implantable cardioverter-defibril lator), single, in situ; HTN, goal below 130/80; Dyslipidemia, goal LDL below 70 Allergies No known active allergiesdocumented as of this encounter (statuses as of 08/23/2024) Medications NITROGLYCERIN 0.4 MG SL SUBLIndications:Hy popotassemia,Cardi ac arrest (HCC),INTERFACED RESULT,Respiratory failure, acute (HCC),Ventricular fibrillation (HCC),Acute non Q wave myocardial infarction (HCC),Dyslipidemia , goal LDL below 100,HTN, goal below 130/80,DM type 2, not at goal (HCC),Asthma, mild persistent,Electro lyte and fluid disorder 1 Tab Sublingual Every 5 minutes as needed for chest pain 30 Tab 3 12/09/19 11 Active atorvaSTATin (LIPITOR) 40 MG Tablet Take 1 Tablet by mouth every evening. Active ipratropium-albute rol (COMBIVENT RESPIMAT) 20-100 MCG/ACT Inhaler Inhale 1 Puff by mouth 4 times a day. 1 Inhaler 07/22/20 18 Active Silver sulfADIAZINE 1 % External Cream Apply topically to affected area daily . Apply to BLE Active Jardiance 25 MG Oral Tablet Take 1 Tablet by mouth in the morning. 03/05/20 22 Active Docusate Sodium 100 MG Oral Capsule (Colace) Take 1 Capsule by mouth 2 times a day as needed for Constipation. 10 Capsule 03/31/20 22 Active Fluticasone Furoate-Vilanterol 200-25 MCG/ACT Inhalation Aerosol Powder Breath Activated Inhale 1 Puff by mouth in the morning. 60 Blister Dosing Unit 03/31/20 Active TRUEplus Lancets 33G 07/02/20 22 Active True Metrix Blood Glucose Test In Vitro Strip 08/30/20 Active True Metrix Meter w/Device Kit 07/12/20 22 Active Alendronate Sodium 70 MG Oral Tablet (Fosamax) Take 1 Tablet by mouth once a week. 08/14/20 22 Active Apixaban 5 MG Oral Tablet (Eliquis)Indicatio ns:Persistent atrial fibrillation (HCC) TAKE 1 TABLET BY MOUTH 2 times daily 180 Tablet 3 08/15/20 23 Active Triamcinolone Acetonide 0.1 % External Cream (Aristocort) Apply to lower legs twice daily as needed for dry skin 80 g 2 08/22/20 23 Active Aspirin 81 MG Oral Tablet Chewable Take 1 Tablet by mouth in the morning. 09/05/20 23 Active Colchicine 0.6 MG Oral Tablet Take 1 Tablet by mouth in the morning. 09/05/20 23 Active Omeprazole 20 MG Oral Capsule Delayed Release (PriLOSEC) Take 1 Capsule by mouth in the morning. 09/05/20 23 Active Metoprolol Succinate ER 25 MG Oral Tablet Extended Release 24 Hour (Toprol XL) Take 1 Tablet by mouth in the morning. 09/05/20 23 Active Torsemide 20 MG Oral Tablet (Demadex)Indicatio ns:HTN, goal below 140/90,Dyslipidemi a, goal LDL below 70,Permanent atrial fibrillation (HCC),Chronic diastolic congestive heart failure (HCC),ICD (implantable cardioverter-defib rillator), single, in situ Take 2 Tablets by mouth in the morning and 2 Tablets in the evening. 60 Tablet 11/12/19 24 Active Senna-Docusate Sodium 8.6-50 MG Oral Tablet Take 1 Tablet by mouth in the morning. 30 Tablet 1 12/26/19 24 Active Ipratropium-Albute rol 0.5-2.5 (3) MG/3ML Inhalation Solution (Duoneb) Inhale 3 mL via nebulizer in the morning and 3 mL before bedtime. 02/02/20 24 Active Potassium Chloride ER 20 MEQ Oral Tablet Extended Release Take 2 Tablets by mouth in the morning and 2 Tablets before bedtime. Active LORazepam 0.5 MG Oral Tablet (Ativan) Take 1 Tablet by mouth 2 times a day as needed. 08/14/20 24 Active Pregabalin 150 MG Oral Capsule (Lyrica) Take 1 Capsule by mouth in the morning and 1 Capsule before bedtime. 07/12/20 24 Active Cephalexin 500 MG Oral Capsule (Keflex) Take 1 Capsule by mouth in the morning and 1 Capsule before bedtime. Do all this for 10 days. Until gone.. 20 Capsule 08/23/20 24 Active Ondansetron 4 MG Oral Tablet Disintegrating (Zofran) Place 1 Tablet on tongue every 6 hours as needed for Nausea. 20 Tablet 12/26/19 24 024 Discontin ued(Medic ation List Clean Up) traMADol HCl 25 MG Oral Tablet Take 25 mg by mouth every 6 hours as needed for Pain, Mild. 10 Tablet 12/26/19 24 024 Discontin ued(Medic ation List Clean Up) Polyethylene Glycol 3350 17 GM Oral Packet (Miralax) Take 1 Packet by mouth 2 times a day as needed (constipation) . 14 Each 12/26/19 24 Discontin ued(Medic ation List Clean Up) Pregabalin 100 MG Oral Capsule (Lyrica) Take 1 Capsule by mouth in the morning and 1 Capsule before bedtime. 60 Capsule 1 12/26/19 24 024 Discontin ued(Medic ation/Dos e Changed) documented as of this encounter (statuses as of 08/23/2024) Active Problems Problem Noted Date Diagnosed Date Fall at home 12/19/2023 Leg edema 11/10/2023 PAD (peripheral artery disease) 11/10/2023 Elevated transaminase level 11/10/2023 Coronary artery disease invo lving [place] coronary artery of [place] heart without angina pectoris 11/10/2023 Abnormal nuclear [...] as of this encounter (statuses as of 08/23/2024) Resolved Problems Problem Noted Date Diagnosed Date Resolved Date Closed fracture of right femur 12/19/2023 12/26/2023 Closed fracture of right hip 12/19/2023 12/26/2023 Cardiac/pericardial tamponade 11/02/2022 11/05/2022 Hypoxemia 11/24/2018 11/27/2018 Cardiac arrest 11/24/2010 07/14/2011 Ventricular fibrillation 11/24/2010 Acute non Q wave myocardial infarction 11/24/2010 07/14/2011 HTN, goal below 130/80 11/24/201005/11 Overview: Per HTN Protocol #27. documented as of this encounter (statuses as of 08/23/2024) Immunizations Name Administration Dates Next Due Pneumococcal Conjugate Vacc, 13 Valent (Prevnar) 06/11/2016 Pneumococcal Polysaccharide PPV23 (Pneumovax) 11/16/2013,12/03/2010,10/23/2007 Seasonal Influenza, Quadriva lent, No Preserve, IM 06/11/2016,06/06/2014,08/14/2013,08/08,07/14/2010,08/08/2009,07/29/2008 TDAP (age 10 and older)(Boostrix) 07/18/2018 documented as of this encounter Social History [...] ages 0-17 years) Not on file 12/19/2023 Transportation Needs Answer Date Record ed READ [...] Sign Reading Time Taken Comments Blood Pressure 116/64 08/23/2024 2:19 PM EST Pulse 72 08/23/2024 2:19 PM EST Temperature - - Respiratory Rate - - Oxygen Saturation - - Inhaled Oxygen Concentration - - Weight 64.1 kg (141 lb 6.4 oz) 08/23/2024 2:19 P M EST Height 162.6 cm (5' 4") 08/23/2024 2:19 PM EST Body Mass Index 24.27 08/23/2024 2:19 PM EST documented in this encounter Functional Status * Are you [...] 12/19/2023 2:02 PM Danielle Reyes RN documented as of this encounter Mental Status * Because of a physical, mental, or emotional condition, do you have serious difficulty concentrating, remembering, or making decisions? (5 years old or older) Answer Entry Date Author No 12/19/2023 2:02 PM Danielle Reyes RN documented in this encounter Progress Notes * Rosy Brewer PA-C - 08/23/2024 2:00 PM EST 08/23/2024 Cardiology Follow Up Past Medical History: Chronic HFpEF Hx Takotsubo Cardiomyopathy 2010 complicated by VFib arrest. Moderate Tricuspid Regurgitation Single-Chamber ICD 11/2010 gen change 2019. Non-obstructive CAD 11/01/22 STEMI. 11/01/22. HTN HLD Permanent AFIB Lymphedema PVD -s/p LLE Embolectomy 12/23/22 Pericardial Effusion s/p thoracentesis 07/2023 s/p pericardiocentesis 11/02/22 HPI: Lillian Feliciano is a 89 year old female who presents for cardiology follow up. Presents today accompanied by daughter. Has chronic dyspnea on exertion, no worse than normal. Edema worsening, unable to tell me how long. Has open sores that she applies cream to, wrapped in MADALYN bandage. Weight up 12 lbs since last visit. Denies chest pain, palpitations, lightheadedness, syncope.Compliant with all medications. States she went to PCP this week, but when calling PCP office she was there for anxiety, did not mention or show her leg. Goes back tomorrow for follow up. REVIEW OF SYSTEMS: See HPI for pertinent positives. All others negative other than those noted in the HPI. CONSTITUTIONAL: No change in weight, No weakness, No fatigue and No fevers, No sweats or chills. PULMONARY: No cough, sputum, or hemoptysis, No wheezing, No shortness of breath and No recent change in breathing. CARDIOVASCULAR: No chest pain, No dyspnea on exertion, + edema, No palpitations and No syncope. GASTROINTESTINAL: [...] Take 1 Tablet by mouth every evening. Jardiance 25 MG Oral Tablet Take 1 Tablet by mouth in the morning. Fluticasone Furoate-Vilanterol 200-25 MCG/ACT Inhalation Aerosol Powder Breath Activated Inhale 1 Puff by mouth in the morning. 60 Blister Dosing Unit Apixaban 5 MG Oral Tablet (Eliquis) TAKE 1 TABLET BY MOUTH 2 times daily 180 Tablet 3 Triamcinolone Acetonide 0.1 % External Cream (Aristocort) Apply to lower legs twice daily as neededfor dry skin 80 g 2 Colchicine 0.6 MG Oral Tablet Take 1 [...] Tablets in the evening. 60 Tablet 0 Potassium Chloride ER 20 MEQ Oral Tablet Extended Release Take 2 Tablets by mouth in the morning and 2 Tablets before bedtime. LORazepam 0.5 MG Oral Tablet (Ativan) Take 1 Tablet by mouth 2 times a day as needed. Pregabalin 150 MG Oral Capsule (Lyrica) Take 1 Capsule by mouth in the morning and 1 Capsule beforebedtime. NITROGLYCERIN 0.4 MG SL SUBL 1 Tab Sublingual Every 5 minutes as needed for chest pain 30 Tab 3 ipratropium-albuterol (COMBIVENT RESPIMAT) 20-100 MCG/ACT Inhaler Inhale 1 Puff by mouth 4 times a day. 1 Inhaler 0 Silver sulfADIAZINE 1 % External Cream Apply topically to affected area daily . Apply to BLE Docusate Sodium 100 MG Oral Capsule (Colace) Take 1 Capsule by mouth 2 times a day as needed for Constipation. 10 Capsule 0 TRUEplus Lancets 33G True Metrix Blood Glucose Test In Vitro Strip True Metrix Meter w/Device Kit Alendronate Sodium 70 MG Oral Tablet (Fosamax) Take 1 Tablet by mouth once a week. Aspirin 81 MG Oral Tablet Chewable Take 1 Tablet by mouth in the morning. Senna-Docusate Sodium 8.6-50 MG Oral Tablet Take 1 Tablet by mouth in the morning. 30 Tablet 1 Ipratropium-Albuterol 0.5-2.5 (3) MG/3ML Inhalation Solution (Duoneb) Inhale 3 mL via nebulizer in the morning and 3 mL before bedtime. No current facility-administered medications for this visit. Past Medical History: Diagnosis Date A-fib ([facility]) Asthma, mild persistent Critical limb ischemia of left lower extremity with autologous bypass graft ([facility]) 12/24/2022 DM type 2, goal A1c below 7 Hyperlipidemia Hypertension ICD (implantable cardioverter-defibrillator) in place Myocardial infarction acute ([facility]) 11/24/2010 Ventricular fibrillation arrest, Possible Takotsubo syndrome Nonischemic cardiomyopathy ([facility]) Takotsubo cardiomyopathy Family History Problem Relation Name [...] No mold. Oil heat. No air conditioning. Social Needs Food Insecurity: No Food Insecurity (12/19/2023) Food Insecurity Do you need food for this week? (Adult - for ages 18 years and over): No Transportation Needs: No Transportation Needs (12/19/2023) Transportation Needs Do you have trouble getting a ride to medical visits or work? (Adult - for ages 18 years and over):Never True Social Connections Housing Stability: Low Risk (12/19/2023) Housing Stability Do you think you are at risk of becoming homeless? (Adult - for ages 18 years and over): No OBJECTIVE/PHYSICAL EXAMINATION: BP 116/64 | Pulse 72 | Ht 1.626 m (5' 4") | Wt 64.1 kg (141 lb 6.4 oz) | BMI 24.27 kg/m | BSA 1.7m Wt Readings from Last 3 Encounters: 08/23/24 64.1 kg (141 lb 6.4 oz) 05/11/24 58.5 kg (129 lb) 04/19/24 60.8 kg (134 lb) General: No acute distress. A+Ox3. HEENT: Normocephalic. Atraumatic. PERRL. EOMI. Conjunctiva and sclera clear. NECK: No carotid bruits. No JVD. Carotid upstrokes are brisk. Heart: irregularly irregular. S1 and S2 noted. No murmur. No rubs or gallops. PMI non displaced. Lungs: Clear to auscultation. No wheezes. No rhonchi. No rales. Abdomen: Normal bowel sounds. Soft. Nontender. No masses or organomegaly. No abdominal bruits. Extremities: 1+ RLE edema. LLE with 2+ edema, erythema and leg warm, open sores present. No clubbing or cyanosis. Pulses: radial=2/4, posterior tibial=2/4, dorsalis pedis = 2/4. NEURO: No focal deficits. PSYCH: Appropriate affect and insight. DATA Labs & Imaging Reviewed Below: Echo 11/10/23 Calculated LV ejection Fraction = 54% (three [...] is no significant change. Nuclear Stress Test 10/28/23 This is an [...] inferior Raw images show chest wall attenuation. ASSESSMENT/PLAN: 89 year old female 1. Chronic heart failure with preserved ejection fraction (HCC) - hypervolemic on exam, weight up significantly since last visit - concern for cellulitis of left leg, which is likely worsening edema, will start cephalexin 500 mgtwice daily for 10 days, has follow up with PCP tomorrow, declines wound care referral - continue torsemide 40 mg twice daily, pending improvement after antibiotics, may need to increasediuretics - continue Jardiance 25 mg daily - continue daily weights, low sodium diet 2. Chronic coronary artery disease - Stable from a cardiac standpoint. - Continue aspirin 81mg daily. Denies abnormal bleeding/melena - Nuclear stress test suggestive of ischemia of the distal to mid anterior wall and basal inferolateral inferior wall. Moderate area of area of moderate severe intensity reversible defect of distal to mid anterior and apex. Basal inferolateral and inferior wall - Patient has declined cardiac catheterization, prefers medical management 3. Permanent atrial fibrillation (HCC) 4. ICD (implantable cardioverter-defibrillator), single, in situ - Heart rate is well controlled - Continue metoprolol succinate 25 mg daily - Anticoagulated with Eliquis 5 mg BID. Denies abnormal bleeding/melena - continue routine device checks 5. HTN, goal below 130/80 - blood pressure within goal 6. Dyslipidemia, goal LDL below 70 - LDL is well controlled, 34 on 10/2022 - Continue atorvastatin 40mg daily DISPOSITION: Follow up 3 months or sooner if symptoms worsen/fail to improve. All questions were answered to the patients satisfaction. Patient advised to report to ED with any and all emergencies. The patient agrees to the above plan and will call with additional questions or concerns. Rosy Brewer PA-C Cardiology, [address] [place] [address] I spent a total of 40 minutes on the date of service in preparation, delivery, and documentation ofthe care provided to Lillian Feliciano excluding any time spent in the performance of separately billed services. This chart was completed in part utilizing [employer] Speech Voice Recognition Software. Grammatical errors, random [...] documented in this encounter Nursing Notes * Makeda Acevedo LPN - 08/23/2024 2:24 PM EST Patient was identified by name and date of . Name: Lillian Feliciano Date of : (1935). Examination Room: 11 Reason for Visit: Chief Complaint Patient presents with Follow Up Interim Hospitalization(s): NO Interim Emergency room visit(s): NO Chest Pain: No SOB: No Problems/Concerns: No Medications reviewed and are up to date via: Medication bottles Would you like to sign up for [facility]? DECLINES Patient was instructed to not get up on the exam table/exam chair until directed and assisted by their provider; patient is to remain seated in the chair/ wheelchair/ exam table/ exam chair for fall prevention and safety reasons. Patient is aware to have assistance to step down off exam table/exam chair with personnel. Patient voiced full comprehension of instructions. Makeda Acevedo LPN 2:24 PM 08/23/2024 documented in this encounter Plan of Treatment Upcoming Encounters Date Type Department Care Team (Late st Contact Info) Description 11/21/2024 3:00 PM EST Office Visit Cardiology, [place] [address] [place] [phone] Rosy Brewer PA-C [address] [id number] 04/04/2025 9:00 AM EDT Cardiac Studies Cardiology, [place] [address] [address] [place] [address] [address] Health Maintenance Due Date Last Done Comments Depression Screening 1949 Diabetic Foot Exam 1955 Zoster Vaccines (1 of 2) 1987 Albumin/Creatinine Ratio 12/03/2015 12/02/2014 *SPIROMETRY ONCE FOR ASTHMA-ADULT 11/07/2016 Diabetic Eye Exam 09/07/2023 09/07/2022, , 09/07/2022, Additional history exists HbA1c 05/10/2024 11/10/2023, 10/20, 10/12/2022, Additional history exists COVID-19 Vaccine (2023- season) 2024 Influenza Vaccine (FLU shot) (#1) 2024 06/11/2016, 06/06/2014, 08/14/2013, Additional history exists DTap/Tdap Vaccines (2 - Td or Tdap) 07/18/2028 07/18/2018 DXA Scan 05/31/2029 05/31/2022, 05/22/2019 Pneumococcal Vaccine: [...] this encounter Medical Devices Implanted Type Area Senior Statistical Programmer Device Identifier Shelf Expiration Date Model / Serial / Lot Lens 21.0 Jerome - [id number] - [id number] Implanted:Qty: 1 on 01/28/2023 by Christian Woo DO at OR [facility] Lens Right: Eye [employer] 10/12/2025 [id number] / [id number] / Denise 6.5mm Partially Threaded (20mm) Screws, Non-Sterile 90mm Implanted:Qty: 2 on 12/21/2023 by Sulaiman Morales MD at OR [facility] Screw Right: Hip DENISE : ORTHOPAEDICS N/A [id number] / N/A / N/A Description:From sterile set on field. No LOT #, Expiration date or serial # present. WD# [id number] per CDM Team Denise 6.5mm Partially Threaded (20mm) Screws, Non-Sterile 95mm Implanted:Qty: 1 on 12/21/2023 by Sulaiman Morales MD at OR [facility] Screw Right: Hip DENISE N/A [id number] / N/A / N/A Description:From sterile set on field. No LOT #, Expiration date or serial # present. # [id number] per CDM Team Lens 20.5 [facility] - [id number] - [id number] Implanted:Qty: 1 on 01/04/2023 by Christian Woo DO at OR [facility] Left: Eye [employer] 07/15/2025 [id number] / [id number] / documented as of this encounter Visit Diagnoses Diagnosis Chronic heart failure with preserved ejection fraction (HCC)- Primary Chronic coronary artery disease Coronary atherosclerosis of unspecified type of vessel, [place] or graft Permanent atrial fibrillation (HCC) Atrial fibrillation ICD (implantable cardioverter-defibrillator), single, in situ HTN, goal below 130/80 Unspecified essential hypertension Dyslipidemia, goal LDL below 70 Other and unspecified hyperlipidemia documented in this encounter Advance Directives * [...] the patient have Health Care Power of Chief Hospital Administrator? Yes, not currently available * Full Code Date Activated Date Inactivated Comments 01/28/2023 8:51 AM 01/28/2023 4:34 PM Question Answer Comments Discussion of Advance Direct torri occurred with: Not Discussed due to patient's condition * Full Code Date Activated Date Inactivated Comments 12/24/2022 1:55 AM 12/24/2022 8:25 PM This order re flects the patients wishes and were consensually agreed upon. Question Answer Comments Discussion of Advance Direct torri occurred with: Not Discussed due to patient's condition Care Teams Bench Tool Maker Relationship Specialty Start Date End Date Isrrael Bolivar DO [address] [place] [address] PCP - General Family Medicine 11/24/10 documented as of this encounter
--- OUTSIDE RECORDS SUMMARY | 2024-09-15 17:19 | External Medical Summary ---
Author Name Unknown Address Unknown Organization [id number]:[facility]ORY [facility] [place] - [address] [place] [address] Laboratory Report Ordering Provider Test Date Status HARLAN BEJARANO 05/11/2024 09:36:18 Final Observation Date Value Abnormality Reference (Units ) Status BUN 05/11/2024 09:36:18 36 Above high normal 6-20 (mg/dL) Final Creatinine 05/11/2024 09:36:18 1.2 Above high normal 0.5-1.0 (mg/dL) Final Glomerular filtration rate/1.73 sq M.predicted [Volume Rate/Area] in Serum, Plasma or Blood by Creatinine-based formula (CKD-EPI) 05/11/2024 09:36:18 43 Below low normal >=60 (mL/min) Final eGFR is calculated based on the CKD-EPI 2020 equation. Sodium 05/11/2024 09:36:18 140 135-146 (m mol/L) Final Potassium 05/11/2024 09:36:18 4.6 3.5-5.1 (m mol/L) Final Cl 05/11/2024 09:36:18 100 98-107 (mm ol/L) Final CO2 05/11/2024 09:36:18 26 22-32 (mmo l/L) Final Anion gap 05/11/2024 09:36:18 14 7-15 (mmol /L) Final Glucose 05/11/2024 09:36:18 162 Above high normal 70 -120 (mg/dL) Final Calcium 05/11/2024 09:36:18 9.7 8.4-10.2 ( mg/dL) Final Performing Location [facility] [place] - [address] [place] [address]
--- OUTSIDE RECORDS SUMMARY | 2024-09-15 17:19 | External Medical Summary | Summary of Care ---
Author Name Unknown Organization [facility] Address [address] [place] [address] Phone [phone] Care Team Providers Care High Voltage Electrician Name Role Phone Isrrael Bolivar DO Primary Care Provider + [phone] Reason for Visit * Reason Onset Date Comments Test Results 05/14/2024 Encounter Details Date Type Department Care Team ([facility] Contact Info) Description 05/14/2024 Telephone Cardiology, [place] [address] [facility] [place] [address] Rosy Brewer PA-C [address] [facility] [place] [address] Test Results (/) Allergies No known active allergiesdocumented as of this encounter (statuses as of 05/14/2024) Medications Medication Sig Dispensed Refills Start Date [...] in the evening. 60 Tablet 11/12/2023 Active Ondansetron 4 MG Oral Tablet [...] mL before bedtime. 02/02/2024 Active Potassium Chloride ER 20 MEQ Oral Tablet Extended Release Take 2 Tablets by mouth in the morning and 2 Tablets before bedtime. Active documented as of this encounter (statuses as of 05/14/2024) Active Problems Problem Noted Date Diagnosed Date Fall at home 12/19/2023 Leg edema 11/10/2023 PAD (peripheral artery disease) 11/10/2023 Elevated transaminase level 11/10/2023 Coronary artery disease invo lving [place] coronary artery of [place] heart without angina pectoris 11/10/2023 Abnormal nuclear [...] as of this encounter (statuses as of 05/14/2024) Resolved Problems Problem Noted Date Diagnosed Date Resolved Date Closed fracture of right femur 12/19/2023 12/26/2023 Closed fracture of right hip 12/19/2023 12/26/2023 Cardiac/pericardial tamponade 11/02/2022 11/05/2022 Hypoxemia 11/24/2018 11/27/2018 Cardiac arrest 11/24/2010 07/14/2011 Ventricular fibrillation 11/24/2010 Acute non Q wave myocardial infarction 11/24/2010 07/14/2011 HTN, goal below 130/80 11/24/201005/11 Overview: Per HTN Protocol #27. documented as of this encounter (statuses as of 05/14/2024) Immunizations Name Administration Dates Next Due Pneumococcal [...] Telephone Encounter - Makeda Acevedo LPN - 05/14/2024 9:23 AM EDT Dtr informed and voiced understanding. * Telephone Encounter - Makeda Acevedo LPN - 05/14/2024 9:22 AM EDT ----- Message from Rosy Brewer sent at 05/14/2024 8:06 AM EDT ----- Stable labs, continue current medications. documented in this encounter Plan of Treatment Upcoming Encounters Date Type Department Care Team (Late st Contact Info) Description 08/23/2024 2:00 PM EST Office Visit Cardiology, [place] [address] [place] [address] Rosy Brewer PA-C [address] [place] [address] 04/04/2025 9:00 AM EDT Cardiac Studies Cardiology, [place] [address] [place] [address] [place] [address] [address] Health Maintenance Due Date Last Done Comments [...] this encounter Medical Devices Implanted Type Area Solutions Executive Security Device Identifier Shelf Expiration Date Model / Serial / Lot Lens 21.0 Jerome - [id number] - [id number] Implanted:Qty: 1 on 01/28/2023 by Christian Woo DO at OR [facility] Lens Right: Eye [employer] 10/12/2025 CNA0T0.210 / [id number] Sonia / Denise 6.5mm Partially Threaded (20mm) Screws, Non-Sterile 90mm Implanted:Qty: 2 on 12/21/2023 by Sulaiman Morales MD at OR [facility] Screw Right: Hip DENISE : ORTHOPAEDICS N/A [id number] / N/A / N/A Description:From sterile set on field. No LOT #, Expiration date or serial # present. # [id number] per CDM Team [place] 6.5mm Partially Threaded (20mm) Screws, Non-Sterile 95mm Implanted:Qty: 1 on 12/21/2023 by Sulaiman Morales MD at OR [facility] Screw Right: Hip DENISE N/A [id number] / N/A / N/A Description:From sterile set on field. No LOT #, Expiration date or serial # present. # [id number] per CDM Team Lens 20.5 [place] - [id number] - [id number] Implanted:Qty: 1 on 01/04/2023 by Christian Woo DO at OR [facility] Left: Eye [employer] 07/15/2025 CNA0T0.205 / [id number] / documented as of this encounter [...] the patient have Health Care Power of Tooling Engineer? Yes, not currently available * Full Code [...] Discussed due to patient's condition Care Teams High Voltage Electrician Relationship Specialty Start Date End Date Isrrael Bolivar DO [address] [place] [address] PCP - General Family Medicine 11/24/10 documented as of this encounter
--- OUTSIDE RECORDS SUMMARY | 2024-09-15 17:19 | External Medical Summary | Summary of Care ---
Author Name Unknown Organization [facility] Address [address] [place] [address] Phone [phone] Care Team Providers Care Transportation Broker Name Role Phone BolivarIsrrael ford Primary Care Provider [phone] Encounter Details Date Type Department Care Team (Late st Contact Info) Description 06/04/2024 Result Scan Unspecified Department Arti Lipscomb DO [address] [place] [address] <No scans attached> Allergies No known active allergiesdocumented as of this encounter (statuses as of 06/04/2024) Medications Medication Sig Dispensed Refills Start Date [...] as of this encounter (statuses as of 06/04/2024) Active Problems Problem Noted Date Diagnosed Date Fall at home 12/19/2023 Leg edema 11/10/2023 PAD (peripheral artery disease) 11/10/2023 Elevated transaminase level 11/10/2023 Coronary artery disease invo lving [place] coronary artery of [place] heart without angina pectoris 11/10/2023 Abnormal nuclear [...] as of this encounter (statuses as of 06/04/2024) Resolved Problems Problem Noted Date Diagnosed Date Resolved Date Closed fracture of right femur 12/19/2023 12/26/2023 Closed fracture of right hip 12/19/2023 12/26/2023 Cardiac/pericardial tamponade 11/02/2022 11/05/2022 Hypoxemia 11/24/2018 11/27/2018 Cardiac arrest 11/24/2010 07/14/2011 Ventricular fibrillation 11/24/2010 Acute non Q wave myocardial infarction 11/24/2010 07/14/2011 HTN, goal below 130/80 11/24/201005/11 Overview: Per HTN Protocol #27. documented as of this encounter (statuses as of 06/04/2024) Immunizations Name Administration Dates Next Due Pneumococcal [...] Description 08/23/2024 2:00 PM EST Office Visit [facility] [place] [address] [place] [address] Rosy Brewer PA-C [address] [place] [address] 04/04/2025 9:00 AM EDT Cardiac Studies [facility] [place] [address] [place] [address] [facility] [address] [place] [address] Health Maintenance Due Date Last Done Comments [...] this encounter Medical Devices Implanted Type Area Heel Seat Flap Stapler Device Identifier Shelf Expiration Date Model / Serial / Lot Lens 21.0 [facility] - [id number] - [id number] Implanted:Qty: 1 on 01/28/2023 by Christian Woo DO at OR [facility] Lens Right: Eye [employer] 10/12/2025 CNA0T0.210 / [id number] / Denise 6.5mm Partially Threaded (20mm) Screws, Non-Sterile 90mm Implanted:Qty: 2 on 12/21/2023 by Sulaiman Morales MD at OR [facility] Screw Right: Hip DENISE : ORTHOPAEDICS N/A [id number] / N/A / N/A Description:From sterile set on field. No LOT #, Expiration date or serial # present. WD# [id number] per CDM Team [place] 6.5mm Partially Threaded (20mm) Screws, Non-Sterile 95mm Implanted:Qty: 1 on 12/21/2023 by Sulaiman Morales MD at OR [facility] Screw Right: Hip DENISE N/A [id number] / N/A / N/A Description:From sterile set on field. No LOT #, Expiration date or serial # present. WD# [id number] per CDM Team Lens 20.5 [facility] - [id number] - [id number] Implanted:Qty: 1 on 01/04/2023 by Christian Woo DO at OR [facility] Left: Eye [employer] 07/15/2025 CNA0T0.205 / [id number] / documented as of this encounter Procedures Procedure Name Priority Date/Time Associated Diagnosis Comments CARDIOLOGY SCANNED RESULT 06/04/2024 documented in this encounter Results * CARDIOLOGY SCANNED RESULT (06/04/2024) 06/04/2024 Arti Lipscomb DO OTHER documented in this [...] the patient have Health Care Power of Investigation Division Sergeant? Yes, not currently available * Full Code [...] Discussed due to patient's condition Care Teams Transportation Broker Relationship Specialty Start Date End Date Isrrael Bolivar DO [address] [place] [address] PCP - General Family Medicine 11/24/10 documented as of this encounter
--- OUTSIDE RECORDS SUMMARY | 2024-09-15 17:19 | External Medical Summary | Summary of Care ---
Author Name Unknown Organization [facility] Address [address] [place] [address] Phone [phone] Care Team Providers Care Filling Mixer Name Role Phone OsmelJulion Robinson Primary Care Provider [phone] Encounter Details Date Type Department Care Team ([facility] st Contact Info) Description 05/06/2024 Telephone Cardiology, [place] [address] [facility] [place] [address] Nel Rajan PA-C [address] [facility] [place] [address] Allergies No known active allergiesdocumented as of this encounter (statuses as of 05/07/2024) Medications Medication Sig Dispensed Refills Start Date [...] as of this encounter (statuses as of 05/07/2024) Active Problems Problem Noted Date Diagnosed Date Fall at home 12/19/2023 Leg edema 11/10/2023 PAD (peripheral artery disease) 11/10/2023 Elevated transaminase level 11/10/2023 Coronary artery disease invo lving [place] coronary artery of [place] heart without angina pectoris 11/10/2023 Abnormal nuclear [...] as of this encounter (statuses as of 05/07/2024) Resolved Problems Problem Noted Date Diagnosed Date Resolved Date Closed fracture of right femur 12/19/2023 12/26/2023 Closed fracture of right hip 12/19/2023 12/26/2023 Cardiac/pericardial tamponade 11/02/2022 11/05/2022 Hypoxemia 11/24/2018 11/27/2018 Cardiac arrest 11/24/2010 07/14/2011 Ventricular fibrillation 11/24/2010 Acute non Q wave myocardial infarction 11/24/2010 07/14/2011 HTN, goal below 130/80 11/24/201005/11 Overview: Per HTN Protocol #27. documented as of this encounter (statuses as of 05/07/2024) Immunizations Name Administration Dates Next Due Pneumococcal [...] encounter Miscellaneous Notes * Telephone Encounter - Lina Holder OSA - 05/07/2024 9:16 AM EDT Pt scheduled for HD fu on TueMay 11 at 10:30 AM * Telephone Encounter - Nel Rajan PA-C - 05/06/2024 12:46 PM EDT Patient being discharged from [facility] within the next couple days for acute on chronic CHF and LE cellulitis. Please schedule follow-up in 1 week with BMP 1 hour prior to appointment Nel Rajan PA-C documented in this encounter Plan of Treatment Upcoming Encounters Date Type Department Care Team (Late st Contact Info) Description 05/11/2024 10:30 AM EDT Office Visit Cardiology, [place] [address] [place] [address] Rosy Brewer PA-C [address] [place] [address] 04/04/2025 9:00 AM EDT Cardiac Studies Cardiology, [place] [address] [place] [address] [place] [address] [place] [address] Scheduled Orders Name Type Priority Associated Diagnoses Orde r Schedule BASIC METABOLIC PANEL Lab Routine Chronic heart failure with preserved ejection fraction (HFpEF) ([facility]) Expected: 05/06/2024, Expires: 05/06/2025 Health Maintenance Due Date Last Done Comments [...] this encounter Medical Devices Implanted Type Area Eyeglass Lens Generator Device Identifier Shelf Expiration Date Model / Serial / Lot Lens 21.0 Jerome - [id number] - [id number] Implanted:Qty: 1 on 01/28/2023 by Christian Woo DO at OR [facility] Lens Right: Eye [employer] 10/12/2025 CNA0T0.210 / [id number] / [place] 6.5mm Partially Threaded (20mm) Screws, Non-Sterile 90mm Implanted:Qty: 2 on 12/21/2023 by Sulaiman Morales MD at OR [facility] Screw Right: Hip DENISE : ORTHOPAEDICS N/A [id number] / N/A / N/A Description:From sterile set on field. No LOT #, Expiration date or serial # present. # [id number] per CDM Team [place] 6.5mm Partially Threaded (20mm) Screws, Non-Sterile 95mm Implanted:Qty: 1 on 12/21/2023 by Sulaiman Morales MD at OR [facility] Screw Right: Hip DENISE N/A [id number] / N/A / N/A Description:From sterile set on field. No LOT #, Expiration date or serial # present. # [id number] per CDM Team Lens 20.5 Jerome - [id number] - [id number] Implanted:Qty: 1 on 01/04/2023 by Christian Woo DO at OR [facility] Left: Eye [employer] 07/15/2025 CNA0T0.205 / [id number] / documented as of this encounter Visit Diagnoses Diagnosis Chronic heart failure with preserved ejection fraction (HFpEF) ([facility])- Primary documented in this encounter Advance Directives * [...] the patient have Health Care Power of Box Maker? Yes, not currently available * Full Code [...] Discussed due to patient's condition Care Teams Filling Mixer Relationship Specialty Start Date End Date Isrrael Bolivar DO [address] [place] [address] PCP - General Family Medicine 11/24/10 documented as of this encounter
--- OUTSIDE RECORDS SUMMARY | 2024-09-15 17:19 | External Medical Summary | Summary of Care ---
Author Name Unknown Organization [facility] Address [address] [place] [address] Phone [phone] Care Team Providers Care Screw Machine Tender Name Role Phone BolivarJulio fordn Robinson Primary Care Provider + [phone] Reason for Visit * Reason Comments Follow Up Rm 6 Encounter Details Date Type Department Care Team ([facility] Contact Info) Description 05/11/2024 10:30 AM EDT Office Visit Cardiology, [place] [address] [place] [address] Rosy Brewer PA-C [address] [facility] [place] [phone] Chronic heart failure with preserved ejection fraction (HCC)*; Hospital discharge follow-up; Chronic coronary artery disease; Permanent atrial fibrillation [...] morning and 2 Tablets before bedtime. Active Potassium Chloride Ghislaine ER 10 MEQ Oral Tablet Extended ReleaseIndications: Hypokalemia Take 3 Tablets by mouth in the morning and 3 Tablets before bedtime. 6 Tablet 02/17/2024 4 Discontinu ed(Medicat ion List Clean Up) Doxycycline Hyclate 100 MG Oral Capsule Take 1 Capsule by mouth in the morning and 1 Capsule before bedtime. Do all this for 10 days. 20 Capsule 04/19/2024 4 Discontinu ed(Medicat ion List Clean Up) Cephalexin 500 MG Oral Capsule Take 1 Capsule by mouth in the morning and 1 Capsule at noon and 1 Capsule in the evening and 1 Capsule before bedtime. Do all this for 7 days. 28 Capsule 04/19/2024 4 Discontinu ed(Medicat ion List Clean Up) documented as of this encounter (statuses as of 05/11/2024) Active Problems Problem Noted Date Diagnosed Date Fall at home 12/19/2023 Leg edema 11/10/2023 PAD (peripheral artery disease) 11/10/2023 Elevated transaminase level 11/10/2023 Coronary artery disease invo lving [place] coronary artery of [place] heart without angina pectoris 11/10/2023 Abnormal nuclear [...] Sign Reading Time Taken Comments Blood Pressure 122/74 05/11/2024 10:36 AM EDT Pulse 82 05/11/2024 10:36 AM EDT Temperature - - Respiratory Rate 16 05/11/2024 10:36 AM EDT Oxygen Saturation - - Inhaled Oxygen Concentration - - Weight 58.5 kg (129 lb) 05/11/2024 10:36 AM EDT Height 162.6 cm (5' 4") 05/11/2024 10:36 AM EDT Body Mass Index 22.14 05/11/2024 10:36 AM EDT documented in this encounter Functional [...] as of this encounter Progress Notes * Rosy Brewer PA-C - 05/11/2024 10:31 AM EDT 05/11/2024 Cardiology Follow Up Past Medical History: Chronic HFpEF Hx Takotsubo Cardiomyopathy 2010 complicated by VFib arrest. Moderate Tricuspid Regurgitation Single-Chamber ICD 11/2010 gen change 2019. Non-obstructive CAD 11/01/22 STEMI. 11/01/22. HTN HLD Permanent AFIB Lymphedema PVD -s/p LLE Embolectomy 12/23/22 Pericardial Effusion s/p thoracentesis 07/2023 s/p pericardiocentesis 11/02/22 HPI: Lillian Feliciano is a 89 year old female who presents for hospital discharge follow up. Admitted at [facility] 05/06-05/08/24 with acute on chronic CHF and LE cellulitis. Was taking torsemide 20 mg BID at home, increased to 40 mg BID at discharge. Presents today accompanied by daughter. States she has been feeling well since hospitalization. Still has some edema, but improving. Chronic dyspnea on exertion. Denies lightheadedness, syncope. Compliant with all medications. REVIEW OF SYSTEMS: See HPI for [...] in the morning. 60 Blister Dosing Unit Alendronate Sodium 70 MG Oral Tablet (Fosamax) [...] as needed for Nausea. 20 Tablet 0 traMADol HCl 25 MG Oral [...] and 1 Capsule beforebedtime. 60 Capsule 1 Ipratropium-Albuterol 0.5-2.5 (3) MG/3ML Inhalation Solution (Duoneb) Inhale 3 mL via nebulizer in the morning and 3 mL before bedtime. Potassium Chloride ER 20 MEQ Oral Tablet Extended Release Take 2 Tablets by mouth in the morning and 2 Tablets before bedtime. TRUEplus Lancets 33G True Metrix Blood Glucose Test In Vitro Strip True Metrix Meter w/Device Kit Triamcinolone Acetonide 0.1 % External Cream (Aristocort) Apply to lower legs twice daily as neededfor dry skin 80 g 2 No current facility-administered medications for this visit. Past Medical History: Diagnosis Date A-fib ([facility]) Asthma, mild persistent Critical limb ischemia of left lower extremity with autologous bypass graft ([facility]) 12/24/2022 DM type 2, goal A1c below 7 Hyperlipidemia Hypertension ICD (implantable cardioverter-defibrillator) in place Myocardial infarction acute ([facility]) 11/24/2010 Ventricular fibrillation arrest, Possible Takotsubo syndrome Nonischemic cardiomyopathy ([facility]) Takotsubo cardiomyopathy Family History Problem Relation Name [...] mold. Oil heat. No air conditioning. Social Determinants of Health Food Insecurity: No Food Insecurity (12/19/2023) Food [...] years and over): No OBJECTIVE/PHYSICAL EXAMINATION: BP 122/74 | Pulse 82 | Resp 16 | Ht 1.626 m (5' 4") | Wt 58.5 kg (129 lb) | BMI 22.14 kg/m | BSA 1.63 m Wt Readings from Last 3 Encounters: 05/11/24 58.5 kg (129 lb) 04/19/24 60.8 kg (134 lb) 03/26/24 60.8 kg (134 lb) General: No acute [...] masses or organomegaly. No abdominal bruits. Extremities: 1-2+ bilateral LE edema. No clubbing or cyanosis. Pulses: radial=2/4, [...] heart failure with preserved ejection fraction (HCC) 2. Hospital discharge follow-up - feeling well since hospitalization, weight trending down, mild edema on exam - continue torsemide 40 mg twice daily - continue Jardiance 25 mg daily - continue daily weights 3. Chronic coronary artery disease - Stable from [...] has declined cardiac catheterization, prefers medical management 4. Permanent atrial fibrillation (HCC) - Heart rate is well controlled - Continue metoprolol succinate 25 mg daily - Anticoagulated with Eliquis 5 mg BID. Denies abnormal bleeding/melena 5. ICD (implantable cardioverter-defibrillator), single, in situ - continue routine device checks 6. HTN, goal below 130/80 - blood pressure within goal 7. Dyslipidemia, goal LDL below 70 - LDL is well controlled, 34 on 10/2022 - Continue atorvastatin 40mg daily DISPOSITION: Follow up 2 months or sooner if symptoms worsen/fail to improve. All questions were answered to the patients satisfaction. Patient advised to report to ED with any and all emergencies. The patient agrees to the above plan and will call with additional questions or concerns. Rosy Brewer PA-C Cardiology, [address] [place] [address] I spent a total of 35 minutes on the date of service in preparation, delivery, and documentation ofthe care provided to Lillian Feliciano excluding any time spent in the performance of separately billed services. This chart was completed in part utilizing [employer] Speech Voice Recognition Software. Grammatical errors, random [...] documented in this encounter Nursing Notes * Mimi Rajput NRCMA - 05/11/2024 10:39 AM EDT Patient was identified by name and date of . Examination Room: 6 Name: Lillian Feliciano Date of : (1935). Reason for Visit: ret visit Interim Hospitalization(s): no Problems/Concerns: no Chest Pain/SOB: SOB Medications reviewed and are up to date via: med list [facility] is a way you can talk to your provider online through e-mail. Would you like to sign up? I can activate it for you? DECLINES Do you have video visit capabilities (email [...] PM EST Office Visit [place] [place] [address] [place] [address] Rosy Brewer PA-C [address] [place] [address] 04/04/2025 9:00 AM EDT Cardiac Studies [place] [address] [place] [address] [facility] [address] [place] [address] Health Maintenance Due Date Last Done Comments [...] this encounter Medical Devices Implanted Type Area Die Try Out Worker Stamping Device Identifier Shelf Expiration Date Model / Serial / Lot Lens 21.0 Rhonda - [id number] - [id number] Implanted:Qty: 1 on 01/28/2023 by Christian Woo DO at OR [facility] Lens Right: Eye [employer] 10/12/2025 CNA0T0.210 / [id number] / [place] 6.5mm Partially Threaded (20mm) Screws, Non-Sterile 90mm Implanted:Qty: 2 on 12/21/2023 by Sulaiman Morales MD at OR [facility] Screw Right: Hip DENISE : ORTHOPAEDICS N/A [id number] / N/A / N/A Description:From sterile set on field. No LOT #, Expiration date or serial # present. WD# [id number] per CDM Team [place] 6.5mm Partially Threaded (20mm) Screws, Non-Sterile 95mm Implanted:Qty: 1 on 12/21/2023 by Sulaiman Morales MD at OR [facility] Screw Right: Hip DENISE N/A [id number] / N/A / N/A Description:From sterile set on field. No LOT #, Expiration date or serial # present. WD# [id number] per CDM Team Lens 20.5 [place] - [id number] - [id number] Implanted:Qty: 1 on 01/04/2023 by Christian Woo DO at OR [facility] Left: Eye [employer] 07/15/2025 CNA0T0.205 / [id number] 135 / documented as of this encounter Visit Diagnoses Diagnosis Chronic heart failure with preserved ejection fraction (HCC)- Primary Hospital discharge follow-up Other follow-up examination Chronic coronary artery disease Coronary atherosclerosis of unspecified type of vessel, [place] or graft Permanent atrial fibrillation (HCC) Atrial [...] the patient have Health Care Power of Greens Cutter? Yes, not currently available * Full Code [...] Discussed due to patient's condition Care Teams Screw Machine Tender Relationship Specialty Start Date End Date Isrrael Bolivar DO [address] [place] [address] [place] [address] PCP - General Family Medicine 11/24/10 documented as of this encounter
--- OUTSIDE RECORDS SUMMARY | 2024-09-15 17:20 | External Medical Summary | Summary of Care ---
Author Name Unknown Organization [facility] Address [address] [place] [address] Phone [phone] Care Team Providers Care Mining Technician Name Role Phone OsmelJulion Robinson Primary Care Provider [phone] Encounter Details Date Type Department Care Team ([facility] st Contact Info) Description 05/06/2024 Telephone Cardiology, [place] [address] [facility] [place] [phone] Nel Rajan PA-C [address] [facility] [place] [address] Allergies No known active allergiesdocumented as of this encounter (statuses as of 05/06/2024) Medications Medication Sig Dispensed Refills Start Date [...] as of this encounter (statuses as of 05/06/2024) Active Problems Problem Noted Date Diagnosed Date Fall at home 12/19/2023 Leg edema 11/10/2023 PAD (peripheral artery disease) 11/10/2023 Elevated transaminase level 11/10/2023 Coronary artery disease invo lving naknek coronary artery of naknek heart without angina pectoris 11/10/2023 Abnormal nuclear [...] as of this encounter (statuses as of 05/06/2024) Resolved Problems Problem Noted Date Diagnosed Date Resolved Date Closed fracture of right femur 12/19/2023 12/26/2023 Closed fracture of right hip 12/19/2023 12/26/2023 Cardiac/pericardial tamponade 11/02/2022 11/05/2022 Hypoxemia 11/24/2018 11/27/2018 Cardiac arrest 11/24/2010 07/14/2011 Ventricular fibrillation 11/24/2010 Acute non Q wave myocardial infarction 11/24/2010 07/14/2011 HTN, goal below 130/80 11/24/201005/11 Overview: Per HTN Protocol #27. documented as of this encounter (statuses as of 05/06/2024) Immunizations Name Administration Dates Next Due Pneumococcal [...] encounter Miscellaneous Notes * Telephone Encounter - Nel Rajan PA-C - 05/06/2024 12:46 PM EDT Patient being discharged from [facility] within the next couple days for acute on chronic CHF and LE cellulitis. Please schedule follow-up in 1 week with BMP 1 hour prior to appointment Nel Rajan PA-C documented in this encounter Plan of Treatment Upcoming Encounters Date Type Department Care Team (Late st Contact Info) Description 05/07/2024 10:00 AM EDT Office Visit Wound Care, [facility] [address] [place] [address] Kaden Lu MD [address] [place] [phone] 06/18/2024 9:30 AM EDT Office Visit Cardiology, [place] [address] [place] [address] Nel Rajan PA-C [address] [place] [address] 04/04/2025 9:00 AM EDT Cardiac Studies Cardiology, [place] [address] [place] [address] [facility] [address] [place] [address] Scheduled Orders Name Type Priority Associated Diagnoses Orde r Schedule BASIC METABOLIC PANEL Lab Routine Chronic heart failure with preserved ejection fraction (HFpEF) ([facility]) Expected: 05/06/2024, Expires: 05/06/2025 Health Maintenance Due [...] this encounter Medical Devices Implanted Type Area Anthropology Department Chair Device Identifier Shelf Expiration Date Model / Serial / Lot Lens 21.0 Jerome - [id number] - [id number] Implanted:Qty: 1 on 01/28/2023 by Christian Woo DO at [facility] Lens Right: Eye [employer] 10/12/2025 CNA0T0.210 / [id number] / Denise 6.5mm Partially Threaded (20mm) Screws, Non-Sterile 90mm Implanted:Qty: 2 on 12/21/2023 by Sulaiman Morales MD at [facility] Screw Right: Hip DENISE : ORTHOPAEDICS N/A [id number] / N/A / N/A Description:From sterile set on field. No LOT #, Expiration date or serial # present. WD# [id number] per CDM Team Frost 6.5mm Partially Threaded (20mm) Screws, Non-Sterile 95mm Implanted:Qty: 1 on 12/21/2023 by Sulaiman Morales MD at [facility] Screw Right: Hip DENISE N/A [id number] / N/A / N/A Description:From sterile set on field. No LOT #, Expiration date or serial # present. WD# [id number] per CDM Team Lens 20.5 Jerome - [id number] - [id number] Implanted:Qty: 1 on 01/04/2023 by Christian Woo DO at [facility] Left: Eye [employer] 07/15/2025 CNA0T0.205 / [id number] / documented as of this encounter Visit Diagnoses Diagnosis Chronic heart failure with preserved ejection fraction (HFpEF) ([facility])- Primary documented in this encounter Advance Directives [...] the patient have Health Care Power of Furniture Packer? Yes, not currently available * Full Code [...] Discussed due to patient's condition Care Teams Mining Technician Relationship Specialty Start Date End Date Isrrael Bolivar DO [address] [place] [address] PCP - General Family Medicine 11/24/10 documented as of this encounter
--- NOTE | 2024-09-15 17:49 | Emergency Department Note ---
Impression & Plan Weakness, COVID-19, Leg swelling, Bilateral cellulitis of lower leg ED Provider Note Provider: Jens Degroot MD CHIEF COMPLAINT: Illness HISTORY OF PRESENT ILLNESS: Patient is a 89-year-old female past medical history including CHF, cardiac arrest with pacemaker, PAD, A-fib on Eliquis presenting here today reporting general illness over the past week. Cough and cold symptoms. For the last 3 weeks or so she has had some mild generalized myalgias of the been worsening. She does report some diarrhea and vomiting today. Denies abdominal pain. Denies chest pain. No falls or syncope reported. I have noted recently increased bilateral swelling of the lower legs. Has been worse in the past. She states she has been taking her medicines but not eating very well. Family were concerned they have not heard from her recently and went to check on her and found her weak. They do report that she has some mild memory issues that might be just slightly worse than normal today. PAST MEDICAL HISTORY: As noted above MEDICATIONS: Reviewed home medications SOCIAL HISTORY: Former smoker PHYSICAL EXAM: GENERAL: alert and oriented laying on stretcher appears to be little bit tachypneic Head: normocephalic and atraumatic EYES: No injection, discharge or icterus. EOMI. NECK: Trachea midline. ENT: Mucous membranes pink and moist. Pharynx without erythema or exudate. LUNGS: Airway patent. No retractions but mild tachypnea. Breath sounds clear anteriorly but diminished in the bases with fine crackles HEART: Regular rate and rhythm. No chest wall tenderness ABDOMEN: Soft and non-tender, without guarding or rebound. SKIN: Acyanotic, warm, dry, without rashes EXTREMITIES: 2+ edema of the lower extremities to the knees bilaterally with mild bilateral erythema here some flaky skin. No large ulcerations noted NEUROLOGICAL: No focal deficits. No aphasia. No facial droop or slurred speech. EK bpm atrial fibrillation. No acute ST segment elevation with nonspecific T wave flattening QTc of 437. CONTINUOUS CARDIAC MONITORING: was ordered and showed a heart rate of 90s bpm in atrial fibrillation Patient's laboratory studies and imaging reviewed. Differential includes Infection, dehydration, metabolic abnormality, hypo/hyperglycemia, electrolyte disturbance, anemia, hypoxia, cardiac sources, intracerebral event, toxicologic, neurologic, as well as other pathologies. IMPRESSION/MEDICAL DECISION MAKING: Patient with several weeks of myalgias now with increased illness and nausea vomiting and diarrhea today. Respiratory viral panel is sent. Not hypoxic or in significant distress but a little bit tachypneic. Anticoagulated and doubt PE. Does have swelling of the lower extremities and question CHF exacerbation. Reportedly has been taking her torsemide at home. Chest x-ray and basic labs obtained. Doubt CVA, meningitis, or ICH at this time. She is have any focal deficits. She is generally weak. Benign abdomen on exam and denies abdominal pain although has some vomiting and diarrhea today. Chest x-ray per radiology without findings of significant fluid overload or pneumonia. BNP mildly elevated 132 troponin 19. Does appear grossly fluid overloaded lower extremities. There are some scattered abrasions here in the bilateral erythema here is concerning for cellulitis. Will not having significant leukocytosis or findings concerning for sepsis at this point, will cover empirically with ceftriaxone. Will give some Lasix for diuresis. No significant renal dysfunction or severe electrolyte abnormality otherwise noted. Respiratory viral panel returned positive for COVID. Is little bit tachypneic but not hypoxic here. Given the concern for cellulitis legs we will hold off on steroids at this point defer to the hospitalist team. Discussed with patient and family her staying for further care and treatment. They were in agreement. Hospitalist team contacted. DIAGNOSIS: Lower leg cellulitis, weakness, leg swelling, COVID-19 DISPOSITION: Hospitalist will evaluate Patient was agreeable with this plan. 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 ventricular fibrillation Non-occlusive coronary artery disease Diastolic heart failure Chronic a-fib Chest pain Medical History (Updated 09/15/24 @ 19:17 by Jens Degroot M.D.) Cellulitis Cardiac arrest Takotsubo syndrome ICD (implantable cardioverter-defibrillator) in place Pericarditis GERD (gastroesophageal reflux disease) Diabetes mellitus, type 2 Congestive heart failure Hyperlipidemia Atrial fibrillation Arrhythmia Social History Smoking Status: Former smoker Second Hand Exposure: No; Do You Dip or Chew Tobacco: No; Hx Alcohol Use: No Hx Substance Use: No Preferred Language: Arabic Communication Ability: Effective Human Resources File Clerk Required: No Beliefs That Will Affect Care: None Current Living Situation: Alone Feels Safe at Home: Yes Assistive Devices: Walker Allergies Allergies Allergy/AdvReac Type Severity Reaction Status Date / Time No Known Allergies Allergy Verified 05/06/24 01:03 Home Meds Home Medications Medication Instructions Recorded Confirmed apixaban 5 mg tablet (Eliquis) 5 mg PO BID 03/18/20 09/15/24 nitroglycerin 0.4 mg sublingual 0.4 mg sublingual DIRECTED PRN 03/18/20 09/15/24 tablet (Nitrostat) Chest Pain alendronate 70 mg tablet 70 mg PO WK 07/31/23 09/15/24 empagliflozin 25 mg tablet 25 mg PO QAM 07/31/23 09/15/24 (Jardiance) aspirin 81 mg chewable tablet 81 mg PO QAM 05/06/24 09/15/24 (Aspirin Childrens) atorvastatin 40 mg tablet 40 mg PO QPM 05/06/24 09/15/24 colchicine 0.6 mg tablet 0.6 mg PO QAM 05/06/24 09/15/24 docusate sodium 100 mg capsule 100 mg PO BID PRN Constipation 05/06/24 09/15/24 fluticasone furoate 200 1 ea inhalation QAM 05/06/24 09/15/24 mcg-vilanterol 25 mcg/dose inhalation powder (Breo Ellipta) ipratropium 0.5 mg-albuterol 3 mg 3 ml inhalation Q6 PRN Shortness 05/06/24 09/15/24 (2.5 mg base)/3 mL nebulization Of Breath soln metoprolol succinate 25 mg 25 mg PO QAM 05/06/24 09/15/24 tablet,extended release 24 hr omeprazole 20 mg capsule,delayed 20 mg PO QAM 05/06/24 09/15/24 release pregabalin 150 mg capsule 150 mg PO AMHS 05/06/24 09/15/24 silver sulfadiazine 1 % topical 1 applic topical BID PRN affected 05/06/24 09/15/24 cream areas as directed lorazepam 0.5 mg tablet 0.5 mg PO BID PRN Anxiety 09/15/24 09/15/24 sennosides 8.6 mg capsule (senna) 8.6 mg PO DAILY PRN Constipation 09/15/24 09/15/24 triamcinolone acetonide 0.1 % 1 applic topical BID PRN Dry Skin 09/15/24 09/15/24 topical cream Previous Rx's Medication Instructions Recorded potassium chloride 20 mEq 40 meq (2 x 20 mEq) PO BID #60 tabs 05/08/24 tablet,extended release(part/cryst) torsemide 20 mg tablet 40 mg (2 x 20 mg) PO BID #120 tabs 05/08/24 Results & Data (ED) Vital Signs Vital Signs - 24 hr 09/15/24 17:19 09/15/24 17:45 09/15/24 18:08 Temperature 36.6 C Temperature Source Temporal Artery Scan Pulse Rate 105 H 105 H 96 H Pulse Rate from SpO2 Sensor Pulse Rhythm Regular Respiratory Rate 18 41 H Blood Pressure 136/82 Blood Pressure Mean 100 Pulse Oximetry 94 92 Oxygen Delivery Method Room Air Room Air Sepsis Recent Fever Within 48 Hours No Sepsis New/Unexplained Change in Mental Status N/A Sepsis Action Taken by Nursing No Action Required 09/15/24 19:00 09/15/24 19:30 09/15/24 19:33 Temperature Temperature Source Pulse Rate 91 H 88 Pulse Rate from SpO2 Sensor 90 90 Pulse Rhythm Respiratory Rate 21 Blood Pressure 100/65 145/97 H Blood Pressure Mean 76 119 Pulse Oximetry 95 97 Oxygen Delivery Method Room Air Room Air Sepsis Recent Fever Within 48 Hours Sepsis New/Unexplained Change in Mental Status Sepsis Action Taken by Nursing Laboratory Data 09/15/24 18:00 09/15/24 18:00 Lab Results 09/15/24 Range/Units 18:00 WBC 10.47 (4.8-10.8) K/ul RBC 5.96 H (4.20-5.40) M/uL Hgb 15.1 (12.0-16.0) g/dl Hct 45.5 (37.0-47.0) % MCV 76.3 L (80.0-100.0) fL MCH 25.3 (25.0-34.0) pg MCHC 33.2 (32.0-36.0) g/dL RDW Std Deviation 47.3 H (36.4-46.3) fL RDW Coeff of Jonathan 17.7 H (11.5-14.5) % Plt Count 255 (130-400) K/uL MPV 11.0 (9.4-12.4) fL Immature Gran % (Auto) 0.3 % Neut % (Auto) 74.1 % Lymph % (Auto) 14.8 % [place] % (Auto) 10.5 % Eos % (Auto) 0.2 % Baso % (Auto) 0.1 % Neut # (Auto) 7.76 H (1.40-6.50) K/uL Lymph # (Auto) 1.55 (1.20-3.40) K/uL [place] # (Auto) 1.10 H (0.11-0.59) K/uL Eos # (Auto) 0.02 (0.00-0.50) K/uL Baso # (Auto) 0.01 (0.00-0.20) K/uL Immature Gran # (Auto) 0.03 (0.01-0.20) K/uL PT 11.9 (9.0-12.0) Seconds INR 1.1 (0.9-1.1) Sodium 135 L (136-145) mmol/L Potassium 4.3 (3.5-5.1) mmol/L Chloride 96 L (98-107) mmol/L Carbon Dioxide 27 (21-32) mmol/L Anion Gap 12 H (3-11) BUN 19 (6-23) mg/dl Creatinine 0.98 (0.6-1.2) mg/dl Est Cr Clr Drug Dosing 34.9 ml/min eGFR 55.86 BUN/Creatinine Ratio 19.4 (10-20) Glucose 140 H (70-99(Fasting)) mg/dl Calcium 11.0 H (8.6-10.3) mg/dl Magnesium 2.1 (1.7-2.4) mg/dl Total Bilirubin 1.7 H (0.2-1.0) mg/dl AST 16 (13-39) U/L ALT 6 L (7-52) U/L Alkaline Phosphatase 94 (34-104) U/L Troponin I High Sens 19.8 H (0-14) pg/ml B-Natriuretic Peptide 132 H (0-100) pg/ml Total Protein 7.3 (6.0-8.3) gm/dl Albumin 3.9 (3.4-5.0) gm/dl Globulin 3.4 (2.5-4.0) gm/dl Albumin/Globulin Ratio 1.1 (0.9-2) Lipase 11 (11-82) U/L Procalcitonin Cancelled TSH 1.910 (0.300-4.500) uIu/ml Adenovirus (PCR) Not Detected (NotDetected) B. pertussis DNA (PCR) Not Detected (NotDetected) B.parapertussis DNA PCR Not Detected (NotDetected) C. pneumoniae DNA (PCR) Not Detected (NotDetected) Coronavirus OC43 (PCR) Not Detected (NotDetected) Coronavirus HKU1 (PCR) Not Detected (NotDetected) Coronavirus 229E (PCR) Not Detected (NotDetected) SARS-CoV-2 (PCR) DETECTED A (NotDetected) Coronavirus NL63 (PCR) Not Detected (NotDetected) Human Metapneumovir PCR Not Detected (NotDetected) Influenza Type A (PCR) Not Detected (NotDetected) Influenza Type B (PCR) Not Detected (NotDetected) M. pneumoniae (PCR) Not Detected (NotDetected) Parainfluenza 1 (PCR) Not Detected (NotDetected) Parainfluenza 2 (PCR) Not Detected (NotDetected) Parainfluenza 3 (PCR) Not Detected (NotDetected) Parainfluenza 4 (PCR) Not Detected (NotDetected) RSV (PCR) Not Detected (NotDetected) Entero/Rhino (PCR) Not Detected (NotDetected) Administered Medications Discontinued Medications Furosemide (Furosemide 40 Mg/4 Ml Vial) 40 mg IV ONE ONE Stop: 09/15/24 18:49 Last Admin: 09/15/24 19:58 Dose: 40 mg Documented By: Ceftriaxone Sodium (Rocephin) 2,000 mg in 50 mls @ 100 mls/hr IV NOW STA Stop: 09/15/24 19:17 Last Admin: 09/15/24 19:58 Dose: 100 mls/hr Documented By: JR Imaging Data Radiologist's Impression: Chest X-Ray 09/15/24 17:45 INDICATION: Cough. TECHNIQUE: Frontal radiograph of the chest. COMPARISON: Radiograph from 05/05/2024. FINDINGS: Cardiomegaly. Left-sided pacemaker again noted. Pulmonary vasculature appear within normal limits. No infiltrate, pleural effusion or pneumothorax. No acute osseous abnormality evident. IMPRESSION: No acute cardiopulmonary process. Electronically signed by Santiago Summers 09-15-2024 6:41 PM Discharge Plan Visit Data Chief Complaint: Illness Stated Complaint: SICK ED Provider: Jens Degroot Discharge Problem: Weakness, COVID-19, Leg swelling, Bilateral cellulitis of lower leg Patient Disposition: Being Evaluated by Hospitalist Forms Stand Alone Forms: On License Of [facility] Prescriptions Prescriptions: No Action nitroglycerin [Nitrostat] 0.4 mg Tablet, Sublingual 0.4 mg sublingual DIRECTED PRN (Reason: Chest Pain) Rx Instructions: 1 tab sl every 5 mins as needed for cp Eliquis 5 mg Tablet 5 mg PO BID alendronate 70 mg tablet 70 mg PO WK Rx Instructions: SATURDAYS Jardiance 25 mg tablet 25 mg PO QAM triamcinolone acetonide 0.1 % cream 1 applic topical BID PRN (Reason: Dry Skin) lorazepam 0.5 mg tablet 0.5 mg PO BID PRN (Reason: Anxiety) senna 8.6 mg Capsule 8.6 mg PO DAILY PRN (Reason: Constipation) colchicine 0.6 mg tablet 0.6 mg PO QAM pregabalin 150 mg capsule 150 mg PO AMHS atorvastatin 40 mg tablet 40 mg PO QPM silver sulfadiazine 1 % cream 1 applic TOPICAL BID PRN (Reason: affected areas as directed) Rx Instructions: BLE omeprazole 20 mg capsule,delayed release(DR/EC) 20 mg PO QAM metoprolol succinate 25 mg tablet extended release 24 hr 25 mg PO QAM ipratropium-albuterol 0.5 mg-3 mg(2.5 mg base)/3 mL solution for nebulization 3 ml INHALATION Q6 PRN (Reason: Shortness Of Breath) fluticasone furoate-vilanterol [Breo Ellipta] 200-25 mcg/dose blister with device 1 ea INHALATION QAM docusate sodium 100 mg Capsule 100 mg PO BID PRN (Reason: Constipation) aspirin [Aspirin Childrens] 81 mg Tablet,Chewable 81 mg PO QAM potassium chloride 20 mEq Tablet,Er Particles/Crystals 40 meq PO BID Qty: 60 0RF torsemide 20 mg tablet 40 mg PO BID Qty: 120 1RF Referrals Referrals: Isrrael Bolivar, [Primary Care Provider] -
[2024-09-15 18:17] LABS: Basophils # (auto) 0.01 K/uL (0.00-0.20); Basophils % (auto) 0.1 %; Eosinophils # (auto) 0.02 K/uL (0.00-0.50); Eosinophils % (auto) 0.2 %; Hematocrit (blood only) 45.5 % (37.0-47.0); Hemoglobin 15.1 g/dl (12.0-16.0); Immature Granulocytes # (auto) 0.03 K/uL (0.01-0.20); Immature Granulocytes % (auto) 0.3 %; Lymphocytes # (auto) 1.55 K/uL (1.20-3.40); Lymphocytes % (auto) 14.8 %; Mean Corpuscular Hemoglobin 25.3 pg (25.0-34.0); Mean Corpuscular Hgb Conc 33.2 g/dL (32.0-36.0); Mean Corpuscular Volume 76.3 fL (80.0-100.0); Monocytes % (auto) 10.5 %; Neutrophils # (auto) 7.76 K/uL (1.40-6.50); Neutrophils % (auto) 74.1 %; Platelet Count 255 K/uL (130-400); RDW Coefficient of Variation 17.7 % (11.5-14.5); RDW Standard Deviation 47.3 fL (36.4-46.3); Red Blood Count 5.96 M/uL (4.20-5.40); White Blood Count 10.47 K/ul (4.8-10.8)
[2024-09-15 18:42] LABS: Troponin I High Sensitivity 19.8 pg/ml (0-14)
--- NOTE | 2024-09-15 18:42 | XRay Report ---
INDICATION: Cough. TECHNIQUE: Frontal radiograph of the chest. COMPARISON: Radiograph from 05/05/2024. FINDINGS: Cardiomegaly. Left-sided pacemaker again noted. Pulmonary vasculature appear within normal limits. No infiltrate, pleural effusion or pneumothorax. No acute osseous abnormality evident. IMPRESSION: No acute cardiopulmonary process. Electronically signed by Santiago Summers 09-15-2024 6:41 PM
[2024-09-15 18:44] LABS: Albumin Globulin Ratio 1.1 (0.9-2); Albumin Level 3.9 gm/dl (3.4-5.0); BUN Creatinine Ratio 19.4 (10-20); Bilirubin,Total 1.7 mg/dl (0.2-1.0); Creatinine Clr Calc Pharmacy 34.9 ml/min; Globulin 3.4 gm/dl (2.5-4.0); Magnesium 2.1 mg/dl (1.7-2.4); Potassium 4.3 mmol/L (3.5-5.1); Total Protein 7.3 gm/dl (6.0-8.3)
[2024-09-15 18:46] LABS: INR 1.1 (0.9-1.1); Prothrombin Time 11.9 Seconds (9.0-12.0)
[2024-09-15 18:51] LABS: Thyroid Stimulating Hormone 1.91 uIu/ml (0.300-4.500)
[2024-09-15 19:03] LABS: Adenovirus PCR Not Detected (NotDetected); Bordetella parapertussis PCR Not Detected (NotDetected); Bordetella pertussis PCR Not Detected (NotDetected); Chlamydia pneumoniae PCR Not Detected (NotDetected); Coronavirus 229E PCR Not Detected (NotDetected); Coronavirus CoV-2 (COVID19)PCR DETECTED (NotDetected); Coronavirus HKU1 PCR Not Detected (NotDetected); Coronavirus NL63 PCR Not Detected (NotDetected); Coronavirus OC43PCR Not Detected (NotDetected); Human Metapneumovirus PCR Not Detected (NotDetected); Influenza A PCR Not Detected (NotDetected); Influenza B PCR Not Detected (NotDetected); Mycoplasma pneumoniae PCR Not Detected (NotDetected); Parainfluenza Virus 1 PCR Not Detected (NotDetected); Parainfluenza Virus 2 PCR Not Detected (NotDetected); Parainfluenza Virus 3 PCR Not Detected (NotDetected); Parainfluenza Virus 4 PCR Not Detected (NotDetected); Respiratory Syncytial VirusPCR Not Detected (NotDetected); Rhinovirus/Enterovirus PCR Not Detected (NotDetected)
[2024-09-15] MEDS: FUROSEMIDE 40 MG/4 ML VIAL IV ONE (19:58)
[2024-09-15] MEDS: cefTRIAXone SODIUM 2,000 MG/50 ML BAG IV STA (19:58)
[2024-09-15] MEDS: LEVALBUTEROL 1.25 MG/3 ML NEB NEB STA (20:59)
[2024-09-15] MEDS: DOXYCYCLINE HYCLATE 100 MG in DEXTROSE 5% MINI-B 100 ML IV STA (20:59)
[2024-09-15] MEDS: IPRATROPIUM BROMIDE NEB SOLN 0.02% 0.5MG/2.5ML VIAL INH STA (20:59)
--- NOTE | 2024-09-15 21:58 | History & Physical Report ---
Date of Service September 15, 2024 Assessment & Plan (1) Complicated acute bronchitis: Plan: Complicated bronchitis, COVID-19 illness Bilateral LE cellulitis, history lymphedema No overt sepsis for now Rapid A-fib, troponin elevation secondary to illness chronic systolic/diastolic heart failure (EF 55 to 60%, TTE 2023), patient on the dry side hx CAD/ PVD status post surgery valvular heart disease (mild MR/TR/AR) VF status post ICD hypertension, stable hyperlipidemia, on statin Rx DM2 on oral medications, suboptimal control as of recent hemoglobin A1c of 8.26 April 2024 dementia as per family past tobacco abuse PCU given rapid A-fib, facilitate home beta-meera Follow troponin Doxycycline for complicated bronchitis and bilateral LE cellulitis Basal bolus insulin, ISS BG goal 1 10-1 40, carb count coverage DVT prophylaxis. Eliquis DNR as per patient prior directives as per family. Patient family requesting updates providers. Ms. Pina Spicer (daughter), contact #[phone]. Ms. Lily Spicer (granddaughter), contact #[phone]. Text document was generated using [employer] voice recognition software. It may contain grammatical or spelling errors. Kindly contact undersigned for clarification of any documentation item in ques tion. History of Present Illness Chief Complaint: Cough, leg redness, weakness Primary Care Provider: Isrrael Bolivar DO History obtained from patient, family, and records. History somewhat limited from patient secondary to mild dementia. Medical history significant for chronic systolic/diastolic heart failure (EF 55 to 60%, TTE 2023), CAD, valvular heart disease (mild MR/TR/AR), VF status post ICD, A-fib on Eliquis, PVD status post surgery, hypertension, hyperlipidemia, bronchial asthma, DM2 on oral medications, gout, chronic lymphedema, dementia as per family, past tobacco abuse. Last confinement April 2024 for decompensated heart failure. 3 weeks history of junky cough symptoms. Possible sick contacts. Denies aspiration. Left-sided chest pain from pacemaker site. Legs redder than usual. No weight gain as per family. Denies dysuria symptoms. Patient brought to ER for evaluation. IV Lasix, ceftriaxone administered at the ER. 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 Allergies Allergy/AdvReac Type Severity Reaction Status Date / Time No Known Allergies Allergy Verified 05/06/24 01:03 Home Medications Medication Instructions Recorded Confirmed Type apixaban 5 mg tablet (Eliquis) 5 mg PO BID 03/18/20 09/15/24 History nitroglycerin 0.4 mg sublingual 0.4 mg sublingual DIRECTED PRN 03/18/20 09/15/24 History tablet (Nitrostat) Chest Pain alendronate 70 mg tablet 70 mg PO WK 07/31/23 09/15/24 History empagliflozin 25 mg tablet 25 mg PO QAM 07/31/23 09/15/24 History (Jardiance) aspirin 81 mg chewable tablet 81 mg PO QAM 05/06/24 09/15/24 History (Aspirin Childrens) atorvastatin 40 mg tablet 40 mg PO QPM 05/06/24 09/15/24 History colchicine 0.6 mg tablet 0.6 mg PO QAM 05/06/24 09/15/24 History docusate sodium 100 mg capsule 100 mg PO BID PRN Constipation 05/06/24 09/15/24 History fluticasone furoate 200 1 ea inhalation QAM 05/06/24 09/15/24 History mcg-vilanterol 25 mcg/dose inhalation powder (Breo Ellipta) ipratropium 0.5 mg-albuterol 3 mg 3 ml inhalation Q6 PRN Shortness 05/06/24 09/15/24 History (2.5 mg base)/3 mL nebulization Of Breath soln metoprolol succinate 25 mg 25 mg PO QAM 05/06/24 09/15/24 History tablet,extended release 24 hr omeprazole 20 mg capsule,delayed 20 mg PO QAM 05/06/24 09/15/24 History release pregabalin 150 mg capsule 150 mg PO AMHS 05/06/24 09/15/24 History silver sulfadiazine 1 % topical 1 applic topical BID PRN affected 05/06/24 09/15/24 History cream areas as directed potassium chloride 20 mEq 40 meq (2 x 20 mEq) PO BID #60 tabs 05/08/24 09/15/24 Rx tablet,extended release(part/cryst) torsemide 20 mg tablet 40 mg (2 x 20 mg) PO BID #120 tabs 05/08/24 09/15/24 Rx lorazepam 0.5 mg tablet 0.5 mg PO BID PRN Anxiety 09/15/24 09/15/24 History sennosides 8.6 mg capsule (senna) 8.6 mg PO DAILY PRN Constipation 09/15/24 09/15/24 History triamcinolone acetonide 0.1 % 1 applic topical BID PRN Dry Skin 09/15/24 09/15/24 History topical cream Past Med/Surg History Problem List (Updated 09/16/24 @ 09:41 by Carlyle Davis MD) Complicated acute bronchitis Bilateral cellulitis of lower leg (Acute) Leg swelling (Acute) COVID-19 (Acute) Weakness (Acute) PAD (peripheral artery disease) Acute on chronic diastolic HF (heart failure) Bilateral edema of lower extremity (Acute) Acute respiratory failure with hypoxia Pleural effusion (Acute) CHF (congestive heart failure) (Acute) ICD (implantable cardioverter-defibrillator) in place Cardiac arrest with ventricular fibrillation Non-occlusive coronary artery disease Diastolic heart failure Chronic a-fib Chest pain Medical History (Updated 09/16/24 @ 09:41 by Carlyle Davis MD) Cellulitis Cardiac arrest Takotsubo syndrome ICD (implantable cardioverter-defibrillator) in place Pericarditis GERD (gastroesophageal reflux disease) Diabetes mellitus, type 2 Congestive heart failure Hyperlipidemia Atrial fibrillation Arrhythmia Social History Smoking Status: Former smoker Second Hand Exposure: No; Do You Dip or Chew Tobacco: No; Tobacco Cessation Education Requested by Patient: No Hx Alcohol Use: No Hx Substance Use: No Preferred Language: Belarusian Communication Ability: Effective District Traffic Chief Required: No Beliefs That Will Affect Care: None Current Living Situation: Alone Other Information That Helps Us Care for You: No Feels Safe at Home: Yes Safety Concerns: Feels Safe At This Time Assistive Devices: Walker Review of Systems Review of Systems: Could not be reliably obtained secondary to mild dementia Physical Exam Physical Exam: GENERAL: Comfortable, slightly anxious, slightly hard of hearing, no respiratory distress SKIN: Normal color, warm HEENT: [place] palpebral conjunctivae, no ptosis, dry buccal mucosa NECK : Supple, no tenderness CHEST : Decreased breath sounds, no tenderness HEART : Irregular, tachycardic, no obvious murmurs ABDOMEN: Some distention, nontender EXTREMITIES : Bilateral LE erythema with minimal tenderness, no other conspicuous deformities noted NEUROLOGIC : Oriented to month, no facial asymmetry, no other gross focality Results & Data Results & Data Vital Signs (Past 12 Hours) Vital Signs Temp Pulse Resp BP Pulse Ox O2 Del Method 09/15/24 21:30 115 H 09/15/24 21:15 100 H 20 09/15/24 21:00 123/80 09/15/24 20:33 100 H 94 Room Air 09/15/24 20:30 129/87 09/15/24 19:33 88 97 Room Air 09/15/24 19:30 145/97 H 09/15/24 19:00 91 H 21 100/65 95 Room Air 09/15/24 18:08 96 H 09/15/24 17:45 105 H 41 H 92 Room Air 09/15/24 17:19 36.6 C 105 H 18 136/82 94 Room Air Laboratory Results Laboratory Results WBC 10.47 K/ul (4.8-10.8) 09/15/24 18:00 RBC 5.96 M/uL (4.20-5.40) H 09/15/24 18:00 Hgb 15.1 g/dl (12.0-16.0) 09/15/24 18:00 Hct 45.5 % (37.0-47.0) 09/15/24 18:00 MCV 76.3 fL (80.0-100.0) L 09/15/24 18:00 MCH 25.3 pg (25.0-34.0) 09/15/24 18:00 MCHC 33.2 g/dL (32.0-36.0) 09/15/24 18:00 RDW Std Deviation 47.3 fL (36.4-46.3) H 09/15/24 18:00 RDW Coeff of Jonathan 17.7 % (11.5-14.5) H 09/15/24 18:00 Plt Count 255 K/uL (130-400) 09/15/24 18:00 MPV 11.0 fL (9.4-12.4) 09/15/24 18:00 Immature Gran % (Auto) 0.3 % 09/15/24 18:00 Neut % (Auto) 74.1 % 09/15/24 18:00 Lymph % (Auto) 14.8 % 09/15/24 18:00 [place] % (Auto) 10.5 % 09/15/24 18:00 Eos % (Auto) 0.2 % 09/15/24 18:00 Baso % (Auto) 0.1 % 09/15/24 18:00 Neut # (Auto) 7.76 K/uL (1.40-6.50) H 09/15/24 18:00 Lymph # (Auto) 1.55 K/uL (1.20-3.40) 09/15/24 18:00 [place] # (Auto) 1.10 K/uL (0.11-0.59) H 09/15/24 18:00 Eos # (Auto) 0.02 K/uL (0.00-0.50) 09/15/24 18:00 Baso # (Auto) 0.01 K/uL (0.00-0.20) 09/15/24 18:00 Immature Gran # (Auto) 0.03 K/uL (0.01-0.20) 09/15/24 18:00 PT 11.9 Seconds (9.0-12.0) 09/15/24 18:00 INR 1.1 (0.9-1.1) 09/15/24 18:00 Sodium 135 mmol/L (136-145) L 09/15/24 18:00 Potassium 4.3 mmol/L (3.5-5.1) 09/15/24 18:00 Chloride 96 mmol/L (98-107) L 09/15/24 18:00 Carbon Dioxide 27 mmol/L (21-32) 09/15/24 18:00 Anion Gap 12 (3-11) H 09/15/24 18:00 BUN 19 mg/dl (6-23) 09/15/24 18:00 Creatinine 0.98 mg/dl (0.6-1.2) 09/15/24 18:00 Est Cr Clr Drug Dosing 34.9 ml/min 09/15/24 18:00 eGFR 55.86 09/15/24 18:00 BUN/Creatinine Ratio 19.4 (10-20) 09/15/24 18:00 Glucose 140 mg/dl (70-99(Fasting)) H 09/15/24 18:00 Calcium 11.0 mg/dl (8.6-10.3) H 09/15/24 18:00 Magnesium 2.1 mg/dl (1.7-2.4) 09/15/24 18:00 Total Bilirubin 1.7 mg/dl (0.2-1.0) H 09/15/24 18:00 AST 16 U/L (13-39) 09/15/24 18:00 ALT 6 U/L (7-52) L 09/15/24 18:00 Alkaline Phosphatase 94 U/L (34-104) 09/15/24 18:00 Troponin I High Sens 19.8 pg/ml (0-14) H 09/15/24 18:00 B-Natriuretic Peptide 132 pg/ml (0-100) H 09/15/24 18:00 Total Protein 7.3 gm/dl (6.0-8.3) 09/15/24 18:00 Albumin 3.9 gm/dl (3.4-5.0) 09/15/24 18:00 Globulin 3.4 gm/dl (2.5-4.0) 09/15/24 18:00 Albumin/Globulin Ratio 1.1 (0.9-2) 09/15/24 18:00 Lipase 11 U/L (11-82) 09/15/24 18:00 Procalcitonin Cancelled 09/15/24 18:00 TSH 1.910 uIu/ml (0.300-4.500) 09/15/24 18:00 Adenovirus (PCR) Not Detected (NotDetected) 09/15/24 18:00 B. pertussis DNA (PCR) Not Detected (NotDetected) 09/15/24 18:00 B.parapertussis DNA PCR Not Detected (NotDetected) 09/15/24 18:00 C. pneumoniae DNA (PCR) Not Detected (NotDetected) 09/15/24 18:00 Coronavirus OC43 (PCR) Not Detected (NotDetected) 09/15/24 18:00 Coronavirus HKU1 (PCR) Not Detected (NotDetected) 09/15/24 18:00 Coronavirus 229E (PCR) Not Detected (NotDetected) 09/15/24 18:00 SARS-CoV-2 (PCR) DETECTED (NotDetected) A 09/15/24 18:00 Coronavirus NL63 (PCR) Not Detected (NotDetected) 09/15/24 18:00 Human Metapneumovir PCR Not Detected (NotDetected) 09/15/24 18:00 Influenza Type A (PCR) Not Detected (NotDetected) 09/15/24 18:00 Influenza Type B (PCR) Not Detected (NotDetected) 09/15/24 18:00 M. pneumoniae (PCR) Not Detected (NotDetected) 09/15/24 18:00 Parainfluenza 1 (PCR) Not Detected (NotDetected) 09/15/24 18:00 Parainfluenza 2 (PCR) Not Detected (NotDetected) 09/15/24 18:00 Parainfluenza 3 (PCR) Not Detected (NotDetected) 09/15/24 18:00 Parainfluenza 4 (PCR) Not Detected (NotDetected) 09/15/24 18:00 RSV (PCR) Not Detected (NotDetected) 09/15/24 18:00 Entero/Rhino (PCR) Not Detected (NotDetected) 09/15/24 18:00 Impressions Chest X-Ray 09/15/24 17:45 INDICATION: Cough. TECHNIQUE: Frontal radiograph of the chest. COMPARISON: Radiograph from 05/05/2024. FINDINGS: Cardiomegaly. Left-sided pacemaker again noted. Pulmonary vasculature appear within normal limits. No infiltrate, pleural effusion or pneumothorax. No acute osseous abnormality evident. IMPRESSION: No acute cardiopulmonary process. Electronically signed by Santiago Summers 09-15-2024 6:41 PM Diagnostic Findings EKG as per my interpretation :Rate 90, A-fib, normal axis, septal infarct, T wave abnormalities inferior and lateral leads
[2024-09-15] MEDS ORDERED: NITROGLYCERIN SL 0.4 MG/TAB TAB SL PRN (22:02)
[2024-09-15] MEDS ORDERED: ACETAMINOPHEN 325 MG TAB PO PRN (22:02)
[2024-09-15] MEDS ORDERED: DOCUSATE SODIUM 100 MG CAP PO PRN (22:03)
[2024-09-15 22:43] LABS: Appearance Urine Cloudy (Clear); Bacteria Urine Automated None Seen (None Seen); Bilirubin Urine Negative (Negative); Blood Urine Trace (Negative); Color Urine Yellow; Epithelial Cell Urine Auto 0-2 /hpf (0-2); Glucose Urine UA 2+ (Negative); Ketones Urine Trace (Negative); Leukocyte Esterase Urine 3+ (Negative); Nitrite Urine Negative (Negative); Protein Urine Negative (Negative); RBC Urine Automated 0-2 /hpf (0-2); Specific Gravity Urine 1.006 (1.000-1.030); Urobilinogen Urine Negative (Negative); WBC Urine Automated >50 /hpf (0-5); pH Urine 6.5 (4.5-7.5)
[2024-09-15] MEDS: ALBUMIN 25% 25 GM/100 ML VIAL IV ONE (23:04)
[2024-09-15 23:12] LABS: Phosphorus 3.7 mg/dl (2.5-4.9)
[2024-09-15] MEDS: METOPROLOL TARTRATE 25 MG TAB PO STA (23:12)
[2024-09-15 23:19] LABS: Troponin I High Sensitivity 17.3 pg/ml (0-14)
[2024-09-16] MEDS ORDERED: CARBOHYDRATES FOR HYPOGLYCEMIA PO PRN (01:18)
[2024-09-16] MEDS ORDERED: DEXTROSE 50% 50 ML SYRINGE IV PRN (01:18)
[2024-09-16] MEDS ORDERED: GLUCOSE 10 TAB/TUBE PO PRN (01:18)
[2024-09-16] MEDS ORDERED: GLUCAGON FOR INJ 1 MG VIAL SQ PRN (01:18)
[2024-09-16] MEDS ORDERED: GLUCOSE 40% GEL 15 GM TUBE PO PRN (01:18)
[2024-09-16] MEDS: INSULIN ASPART PER UNIT CHARGE SC SCH (01:56)
[2024-09-16 07:51] LABS: Basophils # (auto) 0.01 K/uL (0.00-0.20); Basophils % (auto) 0.1 %; Eosinophils # (auto) 0.04 K/uL (0.00-0.50); Eosinophils % (auto) 0.4 %; Hematocrit (blood only) 39.2 % (37.0-47.0); Hemoglobin 12.8 g/dl (12.0-16.0); Immature Granulocytes # (auto) 0.03 K/uL (0.01-0.20); Immature Granulocytes % (auto) 0.3 %; Lymphocytes # (auto) 1.47 K/uL (1.20-3.40); Lymphocytes % (auto) 16.5 %; Mean Corpuscular Hemoglobin 24.9 pg (25.0-34.0); Mean Corpuscular Hgb Conc 32.7 g/dL (32.0-36.0); Mean Corpuscular Volume 76.3 fL (80.0-100.0); Mean Platelet Volume 11.2 fL (9.4-12.4); Monocytes # (auto) 1.06 K/uL (0.11-0.59); Monocytes % (auto) 11.9 %; Neutrophils # (auto) 6.32 K/uL (1.40-6.50); Neutrophils % (auto) 70.8 %; Platelet Count 225 K/uL (130-400); RDW Coefficient of Variation 17.8 % (11.5-14.5); RDW Standard Deviation 47.8 fL (36.4-46.3); Red Blood Count 5.14 M/uL (4.20-5.40); White Blood Count 8.93 K/ul (4.8-10.8)
[2024-09-16 08:06] LABS: BUN Creatinine Ratio 20.5 (10-20); Calcium 9.8 mg/dl (8.6-10.3); Creatinine Clr Calc Pharmacy 45.7 ml/min; Potassium 3.4 mmol/L (3.5-5.1)
[2024-09-16] MEDS: PANTOprazole 40 MG TAB PO SCH (08:32)
[2024-09-16] MEDS: METOPROLOL SUCC 25MG EXT REL TAB PO SCH (08:32)
[2024-09-16] MEDS: ASPIRIN 81 MG ECTAB PO SCH (08:32)
[2024-09-16] MEDS: COLCHICINE 0.6 MG TAB PO SCH (08:32)
[2024-09-16] MEDS: DOXYCYCLINE HYCLATE 100 MG CAP PO SCH (08:32)
[2024-09-16] MEDS: FLUTICASONE/VILANTEROL 200/25MCG 14 PUFFS/INHALER INH SCH (08:33)
[2024-09-16] MEDS: PREGABALIN 150 MG CAP PO SCH (09:29)
--- NOTE | 2024-09-16 10:03 | Electrocardiogram Report ---
Test Reason : Blood Pressure : */* mmHG Vent. Rate : 91 BPM Atrial Rate : * BPM P-R Int : * ms QRS Dur : 90 ms QT Int : 356 ms P-R-T Axes : * 19 10 degrees QTcB Int : 437 ms Atrial fibrillation with premature ventricular or aberrantly conducted complexes Abnormal ECG When compared with ECG of 05-May-2024 22:07, Premature ventricular complexes now present Confirmed by Bridget Connell (Jessy) on 09/16/2024 10:03:12 AM Referred By: REFERRED SELF Confirmed By: Bridget Connell
[2024-09-16] MEDS: APIXABAN 2.5 MG TAB PO SCH (11:07)
[2024-09-16] MEDS: POTASSIUM CHLORIDE CRTAB 20 MEQ TABCR PO STA (11:07)
--- NOTE | 2024-09-16 14:28 | Hospitalist Progress Note ---
Date of Service September 16, 2024 Assessment & Plan (1) Complicated acute bronchitis: Plan Pt is an 89yoF with past medical history significant for chronic systolic/diastolic heart failure (EF 55 to 60%, TTE 2023), CAD, valvular heart disease (mild MR/TR/AR), VF status post ICD, A-fib on Eliquis, PVD status post surgery, hypertension, hyperlipidemia, bronchial asthma, DM2 on oral medications, gout, chronic lymphedema, dementia as per family, past tobacco abuse who presented with cough for 3 weeks, lower extremity erythema and found to be positive for COVID. COVID Infection Complicated bronchitis Pt presenting with cough for 3 weeks Chest XRAY with no acute findings Resp viral panel noting positive for COVID No noted hypoxia at this time Continue home inhaler On doxycycline empirically for a complicated bronchitis picture Continue to monitor Bilateral LE cellulitis history lymphedema RLE> LLE with erythema and swelling RLE doppler US pending CT RLE ordered and pending, r/o osteomyelitis (pt with pacemaker, precludes MRI) No overt sepsis for now Continue with doxycycline Added IV Rocephin Continue to monitor Rapid A-fib VF status post ICD Troponin elevation Demand ischemia Trop elevated at 19.8, downtrended EKG noting a fib with PVCs likely secondary to illness Continue home metoprolol and Eliquis Continue to monitor on telemetry chronic systolic/diastolic heart failure (EF 55 to 60%, TTE 2023) BNP elevated to 132 Continue home meds Complicated UTI UA suggestive of infection, urine Cx pending UA also noting yeast, s/p one dose of diflucan 150mg x1 On IV Rocephin as noted above Follow cx and adjust abx as needed Hypokalemia Replete as needed hypertension stable hyperlipidemia on statin Rx DMII on oral medications recent hemoglobin A1c of 8.26 April 2024 Basal bolus insulin, ISS BG goal 1 10-1 40, carb count coverage Continue to monitor Continue other home meds as ordered Diet: HH/DMII DVT prophylaxis: Eliquis DNR as per patient prior directives as per family. Dispo: PT/OT for further recs Admission and Anticipated Discharge Date Admission Date: September 15, 2024 Subjective patient was seen in the a.m., sitting up in bed eating Stated that she felt much better already Review of Systems Review of Systems: All systems reviewed & are unremarkable except as noted in Subjective Physical Exam Physical Exam: General: Alert, oriented. No acute distress Skin: RLE red and warm >LLE Psych: Appropriate mood and affect Neuro: difficulty with movements in the bed HEENT: NC/AT CV: RRR Resp: Breath sounds clear bilaterally, no increased effort of breathing Abdomen: Soft, nontender Extremities:RLE red and warm >LLE Results & Data Results & Data Vital Signs (Past 12 Hours) Vital Signs Temp Pulse Pulse Resp BP Pulse Ox O2 Del Method 09/16/24 14:04 64 09/16/24 11:25 36.8 C 76 18 110/69 95 Room Air 09/16/24 07:45 Room Air 09/16/24 07:38 85 09/16/24 07:20 36.9 C 81 18 126/76 94 Room Air 09/16/24 06:16 37.2 C 78 18 121/72 94 Room Air Diagnostic Findings Chest X-Ray 09/15/24 17:45 INDICATION: Cough. TECHNIQUE: Frontal radiograph of the chest. COMPARISON: Radiograph from 05/05/2024. FINDINGS: Cardiomegaly. Left-sided pacemaker again noted. Pulmonary vasculature appear within normal limits. No infiltrate, pleural effusion or pneumothorax. No acute osseous abnormality evident. IMPRESSION: No acute cardiopulmonary process. Electronically signed by Santiago Summers 09-15-2024 6:41 PM
[2024-09-16] MEDS: OPTIRAY 320 100ml IV ONE (17:42)
[2024-09-16] MEDS: OPTIRAY 320 125ml IV ONE (17:56)
[2024-09-16] MEDS: FLUCONAZOLE 50 MG TAB PO ONE (18:09)
[2024-09-16] MEDS: cefTRIAXone SODIUM 2,000 MG/50 ML BAG IV SCH (18:09)
--- NOTE | 2024-09-16 18:23 | CT Scan Report ---
EXAM: CT Left Lower Extremity Without and With Intravenous Contrast Tibia and Fibula INDICATION: Evaluate for osteomyelitis. TECHNIQUE: Axial computed tomography images of the left tibia and fibula without and with intravenous contrast. Sagittal and coronal reformatted images were created and reviewed. This CT exam was performed using one or more of the following dose reduction techniques: automated exposure control, adjustment of the mA and/or kV according to patient size, and/or use of iterative reconstruction technique. CONTRAST: 90ml of Optiray 320 was administered intravenously. COMPARISON: No relevant prior studies available. FINDINGS: Bones/joints: The bones are generally demineralized. No periosteal reaction, fracture or dislocation. Soft tissues: There is mild posterior subcutaneous edema and thickening of the superficial fascia progressively increasing from the proximal fibula to the ankle becoming circumferential at the proximal to mid shaft level. No soft tissue gas noted. No radiopaque foreign body seen. IMPRESSION: Diffuse cellulitis and superficial fasciitis progressively increasing from the knee to the ankle without drainable collection or osteomyelitis. ACT 112: Negative or not required by law. Electronically signed by Kezia Terrazas 09-16-2024 6:22 PM
[2024-09-16] MEDS: ATORVASTATIN 40 MG TAB PO SCH (21:31)
--- NOTE | 2024-09-17 10:53 | Ultrasound Report ---
US venous doppler LE RT CLINICAL HISTORY: r/o DVT TECHNIQUE: Right lower extremity real-time compression venous ultrasound with Color Doppler imaging. Utilizing real-time ultrasonic imaging multiple real time high-resolution ultrasonic images with comp ression and noncompression maneuvers of the deep venous system in addition to color doppler imaging w ere performed from the common femoral vein through the proximal calf veins. COMPARISON: Comparison is made to lower extremity Doppler ultrasound 05/06/2024 FINDINGS/IMPRESSION: No deep venous thrombus, there is normal compressibility of the deep venous system from the common fe moral vein through the proximal calf veins. No superficial venous thrombosis is identified. ACT 112: Negative or not required by law. Electronically signed by: Jerry Salinas M.D. 09/17/2024 10:51 AM
[2024-09-17 11:26] LABS: Basophils # (auto) 0.01 K/uL (0.00-0.20); Basophils % (auto) 0.1 %; Eosinophils # (auto) 0.14 K/uL (0.00-0.50); Hematocrit (blood only) 40.4 % (37.0-47.0); Hemoglobin 12.9 g/dl (12.0-16.0); Immature Granulocytes # (auto) 0.04 K/uL (0.01-0.20); Immature Granulocytes % (auto) 0.6 %; Lymphocytes # (auto) 1.25 K/uL (1.20-3.40); Lymphocytes % (auto) 17.5 %; Mean Corpuscular Hemoglobin 24.9 pg (25.0-34.0); Mean Corpuscular Hgb Conc 31.9 g/dL (32.0-36.0); Mean Platelet Volume 11.1 fL (9.4-12.4); Monocytes # (auto) 0.81 K/uL (0.11-0.59); Monocytes % (auto) 11.3 %; Neutrophils % (auto) 68.5 %; Platelet Count 209 K/uL (130-400); RDW Standard Deviation 49.4 fL (36.4-46.3); Red Blood Count 5.18 M/uL (4.20-5.40); White Blood Count 7.15 K/ul (4.8-10.8)
[2024-09-17 11:46] LABS: Albumin Globulin Ratio 1.2 (0.9-2); Albumin Level 3.2 gm/dl (3.4-5.0); BUN Creatinine Ratio 20.5 (10-20); Bilirubin,Total 0.8 mg/dl (0.2-1.0); Calcium 9.5 mg/dl (8.6-10.3); Globulin 2.6 gm/dl (2.5-4.0); Magnesium 1.9 mg/dl (1.7-2.4); Phosphorus 2.2 mg/dl (2.5-4.9); Potassium 3.7 mmol/L (3.5-5.1); Total Protein 5.8 gm/dl (6.0-8.3)
--- NOTE | 2024-09-17 13:32 | Orthopedic Consultation ---
Date of Consultation September 17, 2024 Assessment & Plan (1) Bilateral cellulitis of lower leg: (2) Leg swelling: (3) Complicated acute bronchitis: (4) PAD (peripheral artery disease): (5) Acute on chronic diastolic HF (heart failure): (6) CHF (congestive heart failure): (7) ICD (implantable cardioverter-defibrillator) in place: (8) Cardiac arrest with ventricular fibrillation: (9) Non-occlusive coronary artery disease: (10) Chronic a-fib: Plan Lillian is an 89-year-old female who is quite medically complex who presents to the hospital primarily for an acute bronchitis. She has been managed by the medical team for this, but upon her initial evaluation, she did also note bilateral lower extremity cellulitis. In the course of her workup, CT scan of the lower extremity was obtained and this demonstrated subcutaneous edema consistent with cellulitis, as such orthopedics was consulted. patient had not yet had plain films of her lower extremities taken, so I did order these to be completed. On my evaluation of the patient, she appears well and not acutely ill at this point. Her lower extremity exam is consistent with a soft tissue cellulitis, the obvious concern here would be for necrotizing fasciitis, however the my clinical suspicion upon evaluation the patient is not very high, in addition, and calculating her LRINEC score, she is low risk. LRINEC Score: 2 points WBC 7.15 (less than 15 = 0 pts) CRP 5.9 mg/dL (less than 15 mg/dL = 0 pts) Hemoglobin 12.9 (11-13.5 = 1 pt) Sodium 138 (greater than or equal to 135 = 0 pts) Creatinine 0.83 mg/dL (less than 1.6 mg/dL = 0pts) Glucose 210 milligrams per deciliter(greater than 180 mg/dL = 1 pt) I calculated the patient's LRINEC score using her most significant lab values that have been collected during this admission. Even when using the most significant numbers, the patient's score is 2 points and points less than 6 were deemed to have a lower risk than scores greater than or equal to 7. I do not believe the patient has necrotizing fasciitis, however we should continue to closely observe her legs. If worsening of the cellulitis is noted please call, otherwise would recommend continuing IV antibiotics and the patient can follow-up with her primary care provider as an outpatient for soft tissue cellulitis. History of Present Illness Reason for Consultation: Bilateral lower extremity cellulitis Attending Physician: Phoebe Gregg MD History of Present Illness Patient is a 89-year-old female past medical history including CHF, cardiac arrest with pacemaker, PAD, A-fib on Eliquis Who presented to the emergency department for generalized fatigue and illness with cough and cold symptoms. upon her initial presentation the emergency department, she did also note that she has some swelling in her bilateral lower extremities that she has had for quite some time. She states that they are actually improving at this point. At current, the patient notes that she has gotten better since being in the hospital. She denies significant pain in her bilateral lower extremities today. She notes the redness seems to be improving.. Allergies Allergy/AdvReac Type Severity Reaction Status Date / Time No Known Allergies Allergy Verified 05/06/24 01:03 Home Medications Medication Instructions Recorded Confirmed Type apixaban 5 mg tablet (Eliquis) 5 mg PO BID 03/18/20 09/15/24 History nitroglycerin 0.4 mg sublingual 0.4 mg sublingual DIRECTED PRN 03/18/20 09/15/24 History tablet (Nitrostat) Chest Pain alendronate 70 mg tablet 70 mg PO WK 07/31/23 09/15/24 History empagliflozin 25 mg tablet 25 mg PO QAM 07/31/23 09/15/24 History (Jardiance) aspirin 81 mg chewable tablet 81 mg PO QAM 05/06/24 09/15/24 History (Aspirin Childrens) atorvastatin 40 mg tablet 40 mg PO QPM 05/06/24 09/15/24 History colchicine 0.6 mg tablet 0.6 mg PO QAM 05/06/24 09/15/24 History docusate sodium 100 mg capsule 100 mg PO BID PRN Constipation 05/06/24 09/15/24 History fluticasone furoate 200 1 ea inhalation QAM 05/06/24 09/15/24 History mcg-vilanterol 25 mcg/dose inhalation powder (Breo Ellipta) ipratropium 0.5 mg-albuterol 3 mg 3 ml inhalation Q6 PRN Shortness 05/06/24 09/15/24 History (2.5 mg base)/3 mL nebulization Of Breath soln metoprolol succinate 25 mg 25 mg PO QAM 05/06/24 09/15/24 History tablet,extended release 24 hr omeprazole 20 mg capsule,delayed 20 mg PO QAM 05/06/24 09/15/24 History release pregabalin 150 mg capsule 150 mg PO AMHS 05/06/24 09/15/24 History silver sulfadiazine 1 % topical 1 applic topical BID PRN affected 05/06/24 09/15/24 History cream areas as directed potassium chloride 20 mEq 40 meq (2 x 20 mEq) PO BID #60 tabs 05/08/24 09/15/24 Rx tablet,extended release(part/cryst) torsemide 20 mg tablet 40 mg (2 x 20 mg) PO BID #120 tabs 05/08/24 09/15/24 Rx lorazepam 0.5 mg tablet 0.5 mg PO BID PRN Anxiety 09/15/24 09/15/24 History sennosides 8.6 mg capsule (senna) 8.6 mg PO DAILY PRN Constipation 09/15/24 09/15/24 History triamcinolone acetonide 0.1 % 1 applic topical BID PRN Dry Skin 09/15/24 09/15/24 History topical cream Patient History Medical History (Updated 09/16/24 @ 09:41 by Carlyle Davis MD) Cellulitis Cardiac arrest Takotsubo syndrome ICD (implantable cardioverter-defibrillator) in place Pericarditis GERD (gastroesophageal reflux disease) Diabetes mellitus, type 2 Congestive heart failure Hyperlipidemia Atrial fibrillation Arrhythmia Social History Smoking Status: Former smoker Second Hand Exposure: No; Do You Dip or Chew Tobacco: No; Tobacco Cessation Education Requested by Patient: No Hx Alcohol Use: No Hx Substance Use: No Preferred Language: Mongolian Communication Ability: Effective Photolithographer Required: No Beliefs That Will Affect Care: None Current Living Situation: Alone Other Information That Helps Us Care for You: No Feels Safe at Home: Yes Safety Concerns: Feels Safe At This Time Assistive Devices: Walker Review of Systems Review of Systems: All systems reviewed & are unremarkable except as noted in HPI & below Physical Exam Physical Exam: On physical evaluation of her bilateral lower extremities, the patient has erythema extending up to the mid calf bilaterally. On the left, there are some skin wounds noted with scabs, but no areas of ne crosis. there is 1 wound that is pressure on the posterior aspect of the left calf that is draining a serosanguineous scant drainage. There is no crepitus on palpation. There is no pain on palpation. Her compartments are soft and easily compressible. She demonstrates active EHL/FHL/GSC/TA function. On the right, there are no large wounds appreciated. There is no crepitus to palpation. There is no pain to palpation. Her compartments are soft and easily compressible. She demonstrates active EHL/FHL/GSC/TA function. Results & Data Vital Signs (Past 12 Hours) Vital Signs Temp Pulse Resp BP Pulse Ox O2 Del Method 09/17/24 11:01 36.5 C 68 18 96/59 L 94 Room Air 09/17/24 07:32 37.8 C H 80 16 121/67 92 Room Air 09/17/24 03:30 37.6 C H 81 16 128/77 91 Room Air Diagnostic Findings CT scan of the left leg personally interpreted and reviewed. No osseous abnormalities appreciated. Patient has subcutaneous edema in the left lower extremity without any soft tissue gas noted.
--- NOTE | 2024-09-17 16:34 | Hospitalist Progress Note ---
Date of Service September 17, 2024 Assessment & Plan (1) Complicated acute bronchitis: Plan Pt is an 89yoF with past medical history significant for chronic systolic/diastolic heart failure (EF 55 to 60%, TTE 2023), CAD, valvular heart disease (mild MR/TR/AR), VF status post ICD, A-fib on Eliquis, PVD status post surgery, hypertension, hyperlipidemia, bronchial asthma, DM2 on oral medications, gout, chronic lymphedema, dementia as per family, past tobacco abuse who presented with cough for 3 weeks, lower extremity erythema and found to be positive for COVID. COVID Infection Complicated bronchitis Pt presenting with cough for 3 weeks Chest XRAY with no acute findings Resp viral panel noted to be positive for COVID No noted hypoxia at this time Continue home inhaler On doxycycline empirically for a complicated bronchitis picture Continue to monitor Bilateral LE cellulitis history lymphedema RLE> LLE with erythema and swelling RLE doppler US noting no DVT CT RLE ordered, r/o osteomyelitis (pt with pacemaker, precludes MRI) -noted cellulitis with "superficial fasciitis" -ortho consulted, appreciate recs No overt sepsis for now Continue with doxycycline Added IV Rocephin resumed home torsemide and KCl on 09/17 Continue to monitor Rapid A-fib VF status post ICD Troponin elevation Demand ischemia Trop elevated at 19.8, downtrended EKG noting a fib with PVCs likely secondary to illness Continue home metoprolol and Eliquis- Eliquis dose decreased by pharmacy to 2.5mg BID given age and body weight Continue to monitor on telemetry chronic systolic/diastolic heart failure (EF 55 to 60%, TTE 2023) BNP elevated to 132 Continue home meds Complicated UTI UA suggestive of infection, urine Cx no significant growth UA also noting yeast, s/p one dose of diflucan 150mg x1 On IV Rocephin as noted above Follow cx and adjust abx as needed Hypophosphatemia Hypokalemia Replete as needed hypertension stable hyperlipidemia on statin Rx DMII on oral medications recent hemoglobin A1c of 8.26 April 2024 Basal bolus insulin, ISS BG goal 1 10-1 40, carb count coverage Continue to monitor Continue other home meds as ordered Diet: HH/DMII DVT prophylaxis: Eliquis DNR as per patient prior directives as per family. Dispo: PT/OT for further recs Admission and Anticipated Discharge Date Admission Date: September 15, 2024 Subjective Patient was seen laying in bed, tears in her eyes Upon further questioning she stated that her bird had . Her bird's name was Gerhard Review of Systems Review of Systems: All systems reviewed & are unremarkable except as noted in Subjective Physical Exam Physical Exam: General: Alert, oriented. No acute distress Skin: RLE red and warm >LLE Psych: Appropriate mood and affect Neuro: difficulty with movements in the bed HEENT: NC/AT CV: RRR Resp: Breath sounds clear bilaterally, no increased effort of breathing Abdomen: Soft, nontender Extremities:RLE red and warm >LLE Results & Data Results & Data Vital Signs (Past 12 Hours) Vital Signs Temp Pulse Resp BP Pulse Ox O2 Del Method 09/17/24 14:58 36.8 C 64 18 111/69 95 Room Air 09/17/24 13:33 Room Air 09/17/24 11:01 36.5 C 68 18 96/59 L 94 Room Air 09/17/24 07:32 37.8 C H 80 16 121/67 92 Room Air
--- NOTE | 2024-09-17 17:11 | XRay Report ---
INDICATION: Pain TECHNIQUE: 2 views of the right tibia-fibula were obtained. COMPARISON: None FINDINGS: No displaced acute osseous process is identified. No suspicious cortical erosive changes detected on these radiographs. IMPRESSION: No displaced acute osseous process is identified. No suspicious cortical erosive changes detected on these radiographs. However if symptoms warrant, MRI evaluation may be obtained. Electronically signed by Bo Mendenhall 09-17-2024 5:11 PM
--- NOTE | 2024-09-17 17:13 | XRay Report ---
INDICATION: Pain TECHNIQUE: 2 views of the left tibia-fibula were obtained. COMPARISON: None FINDINGS: No displaced acute osseous process is identified. No suspicious cortical erosive changes detected on these radiographs. IMPRESSION: No displaced acute osseous process is identified. No suspicious cortical erosive changes detected on these radiographs. However if symptoms warrant, MRI evaluation may be obtained. Electronically signed by Bo Mendenhall 09-17-2024 5:11 PM
[2024-09-17] MEDS ORDERED: POTASSIUM PHOS 3 MMOL/1 ML INFUSION IV STA (17:23)
[2024-09-17] MEDS: POT PHOSPHATE MONOBASIC W/ SOD TAB PO SCH (18:42)
[2024-09-17] MEDS: POTASSIUM CHLORIDE CRTAB 20 MEQ TABCR PO SCH (21:23)
[2024-09-17] MEDS: TORSEMIDE 20 MG TAB PO SCH (21:27)
[2024-09-18 09:32] LABS: Albumin Globulin Ratio 1.2 (0.9-2); Albumin Level 3.2 gm/dl (3.4-5.0); Bilirubin,Total 0.6 mg/dl (0.2-1.0); Calcium 8.6 mg/dl (8.6-10.3); Creatinine Clr Calc Pharmacy 47.6 ml/min; Eosinophils # (auto) 0.15 K/uL (0.00-0.50); Eosinophils % (auto) 2.4 %; Globulin 2.7 gm/dl (2.5-4.0); Hematocrit (blood only) 41.7 % (37.0-47.0); Hemoglobin 13.4 g/dl (12.0-16.0); Immature Granulocytes # (auto) 0.03 K/uL (0.01-0.20); Immature Granulocytes % (auto) 0.5 %; Lymphocytes # (auto) 1.22 K/uL (1.20-3.40); Lymphocytes % (auto) 19.8 %; Magnesium 1.7 mg/dl (1.7-2.4); Mean Corpuscular Hgb Conc 32.1 g/dL (32.0-36.0); Mean Corpuscular Volume 77.8 fL (80.0-100.0); Mean Platelet Volume 11.1 fL (9.4-12.4); Monocytes # (auto) 0.64 K/uL (0.11-0.59); Monocytes % (auto) 10.4 %; Neutrophils # (auto) 4.12 K/uL (1.40-6.50); Neutrophils % (auto) 66.9 %; Phosphorus 3.6 mg/dl (2.5-4.9); Platelet Count 207 K/uL (130-400); Potassium 3.8 mmol/L (3.5-5.1); RDW Coefficient of Variation 18.3 % (11.5-14.5); RDW Standard Deviation 49.1 fL (36.4-46.3); Red Blood Count 5.36 M/uL (4.20-5.40); Total Protein 5.9 gm/dl (6.0-8.3); White Blood Count 6.16 K/ul (4.8-10.8)
--- NOTE | 2024-09-18 15:22 | Hospitalist Progress Note ---
Date of Service September 18, 2024 Assessment & Plan (1) Complicated acute bronchitis: Plan Pt is an 89yoF with past medical history significant for chronic systolic/diastolic heart failure (EF 55 to 60%, TTE 2023), CAD, valvular heart disease (mild MR/TR/AR), VF status post ICD, A-fib on Eliquis, PVD status post surgery, hypertension, hyperlipidemia, bronchial asthma, DM2 on oral medications, gout, chronic lymphedema, dementia as per family, past tobacco abuse who presented with cough for 3 weeks, lower extremity erythema and found to be positive for COVID. COVID Infection Complicated bronchitis Pt presenting with cough for 3 weeks Chest XRAY with no acute findings Resp viral panel noted to be positive for COVID No noted hypoxia at this time Continue home inhaler On doxycycline empirically for a complicated bronchitis picture Continue to monitor Bilateral LE cellulitis history lymphedema RLE> LLE with erythema and swelling RLE doppler US noting no DVT CT RLE ordered, r/o osteomyelitis (pt with pacemaker, precludes MRI) -noted cellulitis with "superficial fasciitis" -ortho consulted, appreciate recs No overt sepsis for now Continue with doxycycline Added IV Rocephin resumed home torsemide and KCl on 09/17. Given pt's exam on 09/18, dose decreased to 20mg BID. Continue to monitor Rapid A-fib VF status post ICD Troponin elevation Demand ischemia Trop elevated at 19.8, downtrended EKG noting a fib with PVCs likely secondary to illness Continue home metoprolol and Eliquis- Eliquis dose decreased by pharmacy to 2.5mg BID given age and body weight Continue to monitor on telemetry chronic systolic/diastolic heart failure (EF 55 to 60%, TTE 2023) BNP elevated to 132 Continue home meds Complicated UTI UA suggestive of infection, urine Cx no significant growth UA also noting yeast, s/p one dose of diflucan 150mg x1 On IV Rocephin as noted above Follow cx and adjust abx as needed Hypophosphatemia Hypokalemia Replete as needed hypertension stable hyperlipidemia on statin Rx DMII on oral medications recent hemoglobin A1c of 8.26 April 2024 Basal bolus insulin, ISS BG goal 1 10-1 40, carb count coverage Continue to monitor Continue other home meds as ordered Diet: HH/DMII DVT prophylaxis: Eliquis DNR as per patient prior directives as per family. Dispo: PT/OT for further recs Admission and Anticipated Discharge Date Admission Date: September 15, 2024 Subjective patient was seen in the a.m. resting comfortably, awakened for exam Noted that she had chronic pain in her legs, states she has scratches Otherwise denied acute concerns Review of Systems Review of Systems: All systems reviewed & are unremarkable except as noted in Subjective Physical Exam 2 Physical Exam: General: Alert, oriented. No acute distress Psych: Appropriate mood and affect Neuro: difficulty with movements in the bed HEENT: NC/AT CV: RRR Resp: Breath sounds clear bilaterally, no increased effort of breathing Abdomen: Soft, nontender Extremities:improved RLE and LLE edema and erythema Results & Data Results & Data Vital Signs (Past 12 Hours) Vital Signs Temp Pulse Pulse Resp BP Pulse Ox O2 Del Method 09/18/24 14:00 76 09/18/24 10:55 38.2 C H 67 18 110/67 92 Room Air 09/18/24 07:33 36.6 C 76 16 115/70 95 Room Air 09/18/24 07:00 103 H
--- NOTE | 2024-09-18 19:02 | Orthopedic Progress Note ---
Date of Service September 18, 2024 Assessment & Plan (1) Bilateral cellulitis of lower leg: (2) Leg swelling: (3) Complicated acute bronchitis: (4) PAD (peripheral artery disease): (5) Acute on chronic diastolic HF (heart failure): (6) CHF (congestive heart failure): (7) ICD (implantable cardioverter-defibrillator) in place: (8) Cardiac arrest with ventricular fibrillation: (9) Non-occlusive coronary artery disease: (10) Chronic a-fib: Plan Lillian is an 89-year-old female who is quite medically complex who presents to the hospital primarily for an acute bronchitis. She has been managed by the medical team for this, but upon her initial evaluation, she did also note bilateral lower extremity cellulitis. In the course of her workup, CT scan of the lower extremity was obtained and this demonstrated subcutaneous edema consistent with cellulitis, as such orthopedics was consulted. patient had not yet had plain films of her lower extremities taken, so I did order these to be completed. On my evaluation of the patient, she remains well and not acutely ill. With regards to her legs, she has noted significant improvement over the last 24 hours which is consistent with cellulitis. If worsening of the cellulitis is noted please call, otherwise would recommend continuing IV antibiotics and the patient can follow-up with her primary care provider as an outpatient for soft tissue cellulitis. Admission and Anticipated Discharge Date Admission Date: September 15, 2024 Subjective patient notes significant improvement in her lower extremity redness over the last 24 hours. Review of Systems Review of Systems: All systems reviewed & are unremarkable except as noted in HPI & below Physical Exam Physical Exam: On physical evaluation of her bilateral lower extremities, the patient has erythema extending up to the mid calf bilaterally, but improved since yesterday. On the left, there are some skin wounds noted with scabs, but no areas of necrosis. there is 1 wound that is pressure on the posterior aspect of the left calf that is draining a serosanguineous scant drainage. There is no crepitus on palpation. There is no pain on palpation. Her compartments are soft and easily compressible. She demonstrates active EHL/FHL/GSC/TA function. On the right, there are no large wounds appreciated. There is no crepitus to palpation. There is no pain to palpation. Her compartments are soft and easily compressible. She demonstrates active EHL/FHL/GSC/TA function. Results & Data Vital Signs (Past 12 Hours) Vital Signs Temp Pulse Pulse Resp BP Pulse Ox O2 Del Method 09/18/24 15:53 36.7 C 68 18 110/69 92 Room Air 09/18/24 14:00 76 09/18/24 10:55 38.2 C H 67 18 110/67 92 Room Air 09/18/24 07:33 36.6 C 76 16 115/70 95 Room Air 09/18/24 07:00 103 H Diagnostic Findings XR bilateral tib/fib without acute osseous abnormalities.
[2024-09-18] MEDS: TORSEMIDE 20 MG TAB PO SCH (20:08)
[2024-09-18] MEDS: METOPROLOL TARTRATE 25 MG TAB PO STA (21:00)
[2024-09-18] MEDS: MAGNESIUM SULFATE / D5W 1 GM/100 ML BAG IV SCH (21:00)
[2024-09-19 08:15] LABS: Basophils # (auto) 0.01 K/uL (0.00-0.20); Basophils % (auto) 0.2 %; Eosinophils # (auto) 0.16 K/uL (0.00-0.50); Eosinophils % (auto) 2.6 %; Hematocrit (blood only) 46.5 % (37.0-47.0); Hemoglobin 14.9 g/dl (12.0-16.0); Immature Granulocytes # (auto) 0.04 K/uL (0.01-0.20); Immature Granulocytes % (auto) 0.6 %; Lymphocytes # (auto) 1.77 K/uL (1.20-3.40); Lymphocytes % (auto) 28.4 %; Mean Corpuscular Hemoglobin 25.3 pg (25.0-34.0); Mean Corpuscular Volume 78.9 fL (80.0-100.0); Mean Platelet Volume 11.2 fL (9.4-12.4); Monocytes # (auto) 0.58 K/uL (0.11-0.59); Monocytes % (auto) 9.3 %; Neutrophils # (auto) 3.67 K/uL (1.40-6.50); Neutrophils % (auto) 58.9 %; Platelet Count 212 K/uL (130-400); RDW Coefficient of Variation 18.9 % (11.5-14.5); RDW Standard Deviation 50.5 fL (36.4-46.3); Red Blood Count 5.89 M/uL (4.20-5.40); White Blood Count 6.23 K/ul (4.8-10.8)
[2024-09-19 08:34] LABS: Albumin Globulin Ratio 1.2 (0.9-2); Albumin Level 3.5 gm/dl (3.4-5.0); BUN Creatinine Ratio 18.5 (10-20); Bilirubin,Total 0.6 mg/dl (0.2-1.0); Calcium 8.8 mg/dl (8.6-10.3); Creatinine Clr Calc Pharmacy 38.8 ml/min; Magnesium 2.4 mg/dl (1.7-2.4); Phosphorus 2.6 mg/dl (2.5-4.9); Potassium 4.3 mmol/L (3.5-5.1); Total Protein 6.5 gm/dl (6.0-8.3)
--- NOTE | 2024-09-19 14:54 | Hospitalist Progress Note ---
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 COVID Infection Acute bronchitis Pt presenting with cough for 3 weeks Chest XRAY with no acute findings Resp viral panel noted to be positive for COVID No noted hypoxia at this time Continue home inhaler On doxycycline empirically for a complicated bronchitis picture Continue to monitor Bilateral LE cellulitis history lymphedema RLE> LLE with erythema and swelling RLE doppler US noting no DVT CT RLE ordered, r/o osteomyelitis (pt with pacemaker, precludes MRI) -noted cellulitis with "superficial fasciitis" -orhto evaluation; no concern for fascitis. No overt sepsis for now Continue with doxycycline Added IV Rocephin resumed home torsemide and KCl on 09/17. Given pt's exam on 09/18, dose decreased to 20mg BID. Continue to monitor Rapid A-fib VF status post ICD Troponin elevation Demand ischemia Trop elevated at 19.8, downtrended EKG noting a fib with PVCs likely secondary to illness Continue home metoprolol and Eliquis- Eliquis dose decreased by pharmacy to 2.5mg BID given age and body weight Continue to monitor on telemetry chronic systolic/diastolic heart failure (EF 55 to 60%, TTE 2023) BNP elevated to 132 Continue home meds Complicated UTI UA suggestive of infection, urine Cx no significant growth UA also noting yeast, s/p one dose of diflucan 150mg x1 On IV Rocephin as noted above Cx growing Bifidobacterium scardovii Hypophosphatemia Hypokalemia Replete as needed hypertension stable hyperlipidemia on statin Rx, continue DMII on oral medications recent hemoglobin A1c of 8.26 April 2024 Basal bolus insulin, ISS BG goal 1 10-1 40, carb count coverage Continue to monitor Continue other home meds as ordered Diet: HH/DMII DVT prophylaxis: Eliquis DNR as per patient prior directives as per family. Dispo: PT/OT recommended home; possible dc in am Please note the above document was generated using voice recognition software. It may contain grammatical, syntax or spelling errors. Any formal questions or concerns about the content, text or information contained within the body of this dictation should be directly addressed to the provider for clarification Admission and Anticipated Discharge Date Admission Date: September 15, 2024 Subjective Patient seen and examined at bedside. She is sitting up on a chair at the side of the bed; she reports that her bilateral lower extremity has significantly improved compared to previous days. No significant events overnight Review of Systems Review of Systems: All systems reviewed & are unremarkable except as noted in Subjective Physical Exam Physical Exam: Constitutional: WD/WN, vitals as above, NAD, sitting up in bed, pleasant, conversing easily Respiratory: normal respiratory effort, lungs clear to auscultation, no wheeze, rales, rhonchi. Normal insp/exp effort, no accessory muscle use Cardiovascular: RRR, no murmur, no edema Vessels: no JVD or carotid bruit Chest: normal inspection of chest Abdomen: normal bowel sounds, soft, nontender, no hepatosplenomegaly Musculoskeletal: Bilateral lower extremity redness; no edema Neurologic: PERRL, EOMI, accommodation nl, no face palsy, no dysarthria CN's II- XI intact bilaterally and moves all extremities Psychiatric: A+Ox3, euthymic affect Results & Data Results & Data Vital Signs (Past 12 Hours) Vital Signs Temp Pulse Pulse Resp BP BP Pulse Ox 09/19/24 14:00 63 09/19/24 11:33 37.4 C 61 17 115/69 93 09/19/24 07:44 74 09/19/24 07:32 36.4 C L 68 16 106/71 93 09/19/24 02:51 36.3 C L 61 14 105/68 92 O2 Del Method 09/19/24 14:00 09/19/24 11:33 Room Air 09/19/24 07:44 09/19/24 07:32 Room Air 09/19/24 02:51 Room Air
[2024-09-20 07:28] LABS: Basophils # (auto) 0.01 K/uL (0.00-0.20); Basophils % (auto) 0.1 %; Eosinophils # (auto) 0.19 K/uL (0.00-0.50); Eosinophils % (auto) 2.6 %; Hematocrit (blood only) 47.4 % (37.0-47.0); Immature Granulocytes # (auto) 0.03 K/uL (0.01-0.20); Immature Granulocytes % (auto) 0.4 %; Lymphocytes # (auto) 1.75 K/uL (1.20-3.40); Lymphocytes % (auto) 23.6 %; Mean Corpuscular Hemoglobin 25.1 pg (25.0-34.0); Mean Corpuscular Hgb Conc 31.6 g/dL (32.0-36.0); Mean Corpuscular Volume 79.3 fL (80.0-100.0); Mean Platelet Volume 11.3 fL (9.4-12.4); Monocytes # (auto) 0.62 K/uL (0.11-0.59); Monocytes % (auto) 8.4 %; Neutrophils # (auto) 4.82 K/uL (1.40-6.50); Neutrophils % (auto) 64.9 %; Platelet Count 226 K/uL (130-400); RDW Coefficient of Variation 18.5 % (11.5-14.5); RDW Standard Deviation 50.8 fL (36.4-46.3); Red Blood Count 5.98 M/uL (4.20-5.40); White Blood Count 7.42 K/ul (4.8-10.8)
[2024-09-20 08:11] LABS: BUN Creatinine Ratio 25.5 (10-20); Calcium 9.3 mg/dl (8.6-10.3); Potassium 4.8 mmol/L (3.5-5.1)
--- NOTE | 2024-09-20 08:53 | Discharge Summary ---
Date of Service September 20, 2024 Admission HPI Per Admitting Provider History obtained from patient, family, and records. History somewhat limited from patient secondary to mild dementia. Medical history significant for chronic systolic/diastolic heart failure (EF 55 to 60%, TTE 2023), CAD, valvular heart disease (mild MR/TR/AR), VF status post ICD, A-fib on Eliquis, PVD status post surgery, hypertension, hyperlipidemia, bronchial asthma, DM2 on oral medications, gout, chronic lymphedema, dementia as per family, past tobacco abuse. Last confinement April 2024 for decompensated heart failure. 3 weeks history of junky cough symptoms. Possible sick contacts. Denies aspiration. Left-sided chest pain from pacemaker site. Legs redder than usual. No weight gain as per family. Denies dysuria symptoms. Patient brought to ER for evaluation. IV Lasix, ceftriaxone administered at the ER. 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 Admission Exam Per Admitting Provider GENERAL: Comfortable, slightly anxious, slightly hard of hearing, no respiratory distress SKIN: Normal color, warm HEENT: [place] palpebral conjunctivae, no ptosis, dry buccal mucosa NECK : Supple, no tenderness CHEST : Decreased breath sounds, no tenderness HEART : Irregular, tachycardic, no obvious murmurs ABDOMEN: Some distention, nontender EXTREMITIES : Bilateral LE erythema with minimal tenderness, no other conspicuous deformities noted NEUROLOGIC : Oriented to month, no facial asymmetry, no other gross focality Principal Diagnosis COVID-19 infection Bilateral lower extremity cellulitis Discharge Exam Constitutional: WD/WN, vitals as above, NAD, sitting up in bed, pleasant, conversing easily Respiratory: normal respiratory effort, lungs clear to auscultation, no wheeze, rales, rhonchi. Normal insp/exp effort, no accessory muscle use Cardiovascular: RRR, no murmur, no edema Vessels: no JVD or carotid bruit Chest: normal inspection of chest Abdomen: normal bowel sounds, soft, nontender, no hepatosplenomegaly Musculoskeletal: Bilateral lower extremity redness; no edema Neurologic: PERRL, EOMI, accommodation nl, no face palsy, no dysarthria CN's II- XI intact bilaterally and moves all extremities Psychiatric: A+Ox3, euthymic affect Discharge Data Allergies Allergy/AdvReac Type Severity Reaction Status Date / Time No Known Allergies Allergy Verified 05/06/24 01:03 Consultations 09/15/24 19:27 ED Decision to Admit Stat 09/17/24 09:13 Consult Orthopedic Surgery Routine Ordered Studies 09/16/24 16:24 CT tib/fib LT wo/w con Routine 09/17/24 07:00 US venous doppler LE RT Routine Hospital Course (1) Complicated acute bronchitis: Plan Pt is an 89yoF with past medical history significant for chronic systolic/diastolic heart failure (EF 55 to 60%, TTE 2023), CAD, valvular heart disease (mild MR/TR/AR), VF status post ICD, A-fib on Eliquis, PVD status post surgery, hypertension, hyperlipidemia, bronchial asthma, DM2 on oral medications, gout, chronic lymphedema, dementia as per family, past tobacco abuse who presented with cough for 3 weeks, lower extremity erythema and found to be positive for COVID. COVID Infection Acute bronchitis Pt presenting with cough for 3 weeks Chest XRAY with no acute findings Resp viral panel noted to be positive for COVID No noted hypoxia at this time During the hospitalization; patient remained in room air. Patient reported significant improvement in the symptoms with supportive care. Patient was discharged home with instructions to follow-up with her primary care doctor. Bilateral LE cellulitis history lymphedema RLE> LLE with erythema and swelling RLE doppler US noting no DVT CT RLE ordered, r/o osteomyelitis (pt with pacemaker, precludes MRI) -noted cellulitis with "superficial fasciitis" -orhto evaluation; no concern for fascitis. No overt sepsis for now Patient was treated with IV Rocephin and doxycycline during the hospitalization with significant improvement in her cellulitis. At discharge, she was placed on Augmentin and doxycycline for 5 more days. Dose of torsemide was decreased from 40 mg twice a day to 20 mg twice a day at the time of the discharge. Rapid A-fib VF status post ICD Troponin elevation Demand ischemia Trop elevated at 19.8, downtrended EKG noting a fib with PVCs likely secondary to illness At discharge, Continue home metoprolol and Eliquis- Eliquis dose decreased by pharmacy to 2.5mg BID given age and body weight; Complicated UTI UA suggestive of infection, urine Cx no significant growth UA also noting yeast, s/p one dose of diflucan 150mg x1 On IV Rocephin as noted above Cx growing Bifidobacterium scardovii Hypophosphatemia Hypokalemia Replete as needed hypertension stable hyperlipidemia on statin Rx, continue DMII on oral medications recent hemoglobin A1c of 8.26 April 2024 Basal bolus insulin, ISS BG goal 1 10-1 40, carb count coverage Continue to monitor Continue other home meds as ordered Diet: HH/DMII DVT prophylaxis: Eliquis DNR as per patient prior directives as per family. Dispo: PT/OT recommended home; possible dc in am Please note the above document was generated using voice recognition software. It may contain grammatical, syntax or spelling errors. Any formal questions or concerns about the content, text or information contained within the body of this dictation should be directly addressed to the provider for clarification Total Time Total Time Spent Total Time Spent (In Minutes): 45 Discharge Plan Discharge Items Patient Disposition: Home - Self-Care Reason For Visit: CP, CELLULITIS, COVID Discharge Diagnosis: COVID-19 infection Bilateral cellulitis Activity: Resume your previous activity Non-emergency contact: Primary Care Provider Call non-emergency contact if: you have any medication questions and your symptoms worsen Follow-up/Referrals: Isrrael Bolivar, [Primary Care Provider] - (Attempted to make an appointment for you but was unsuccessful. Please contact you Primary Care Physician to schedule a follow up appointment in 1 week from discharge. Thank you.) Diet: Regular Addtl Attending Provider Instructions: You were admitted to the hospital due to COVID-19 infection. Your oxygen level remained stable throughout the hospitalization. Chest x-ray did not show pneumonia. Please continue to wear masks around other people for 5 more days. You are also treated for bilateral lower extremity cellulitis. To complete the antibiotic course; you are prescribed Augmentin and doxycycline to be taken twice a day for 5 more days. Following other medication changes have been done; 1) Decrease Eliquis to 2.5 mg twice a day from 5 mg twice a day. The dose has been decreased due to your age and weight. 2) Decrease torsemide from 40 mg twice a day to 20 mg twice a day; if you start noticing increase in your lower extremity swelling; the dose of the torsemide may need to be increased. Please coordinate that with your primary care doctor. An appointment with your primary care doctor will be made for you for sometime next week. Please follow-up with them Pending Studies at Discharge: No Stand-Alone Forms: My [facility], Smoking Cessation Medications and DC Order Prescriptions: New doxycycline hyclate 100 mg Capsule 100 mg PO BID 5 Days Qty: 10 0RF amoxicillin-pot clavulanate 875-125 mg tablet 1 tab PO BID 5 Days Qty: 10 0RF Continued nitroglycerin [Nitrostat] 0.4 mg Tablet, Sublingual 0.4 mg sublingual DIRECTED PRN (Reason: Chest Pain) Rx Instructions: 1 tab sl every 5 mins as needed for cp alendronate 70 mg tablet 70 mg PO WK Rx Instructions: SATURDAYS Jardiance 25 mg tablet 25 mg PO QAM triamcinolone acetonide 0.1 % cream 1 applic topical BID PRN (Reason: Dry Skin) lorazepam 0.5 mg tablet 0.5 mg PO BID PRN (Reason: Anxiety) senna 8.6 mg Capsule 8.6 mg PO DAILY PRN (Reason: Constipation) colchicine 0.6 mg tablet 0.6 mg PO QAM pregabalin 150 mg capsule 150 mg PO [facility] atorvastatin 40 mg tablet 40 mg PO QPM silver sulfadiazine 1 % cream 1 applic TOPICAL BID PRN (Reason: affected areas as directed) Rx Instructions: BLE omeprazole 20 mg capsule,delayed release(DR/EC) 20 mg PO QAM metoprolol succinate 25 mg tablet extended release 24 hr 25 mg PO QAM ipratropium-albuterol 0.5 mg-3 mg(2.5 mg base)/3 mL solution for nebulization 3 ml INHALATION Q6 PRN (Reason: Shortness Of Breath) fluticasone furoate-vilanterol [Breo Ellipta] 200-25 mcg/dose blister with device 1 ea INHALATION QAM docusate sodium 100 mg Capsule 100 mg PO BID PRN (Reason: Constipation) aspirin [Aspirin Childrens] 81 mg Tablet,Chewable 81 mg PO QAM potassium chloride 20 mEq Tablet,Er Particles/Crystals 40 meq PO BID Qty: 60 0RF Changed torsemide 20 mg tablet 20 mg PO BID Qty: 120 1RF Eliquis 5 mg Tablet 2.5 mg PO BID Qty: 0 0RF Discharge Orders: Discharge Order (Routine); Ordered 09/20/24 Ordered By: Derrick Rodney Admission Data Admit Date/Time: 09/15/24 21:59 Attending Provider: Derrick Rodney Admit Provider: Carlyle Davis Primary Care Provider: Isrrael Bolivar Other Providers: Carlyle Davis; Prakash Emmanuel Other Interventions: Discharge Summary Assessment (RN) Last Done: 09/20/24 12:49
[2024-09-20 11:07] VITALS: PULSE 66; RESP 20; TEMP 98.6
[2024-09-20 12:51] VITALS: BP 106/67
[2024-09-20 14:02] VITALS: O2SAT 95
== END 2024-09-20 17:09 | disposition home or self-care (01) | DRG 178 ==
LOC: ED 17:13 → 2S 21:59 → INTOOBSV 21:59 → SUATTDRO 21:59 → 2S 09-16 00:43